=== PATIENT | female | born 1945 | race Caucasian/White ===

== ENCOUNTER 2016-03-17 09:52 | Inpatient (IN) | payer OTHER ==
[~2016-03-17] VITALS: Ht 162.6 cm; Wt 76.7 kg
--- NOTE | 2016-03-17 09:57 | NUR ---
PT BIBA FOR ALTERED MENTAL STATUS. PER EMS PTS CALLED 911 WHEN HE FOUND HER IN THE BATHROOM THIS AM. PT HAD DIARREHA ALL DAY YESTERDAY. PT IS KNOWN DIABETIC AND ALSO HAS A HX OF HTN. PT BS 300 AND BP ON ARRIVAL IN ED IS 220/102
--- NOTE | 2016-03-17 10:09 | ED AMS/SEIZURE/WEAK/DIZZY ---
History of Present Illness General Chief Complaint: Altered Mental Status Stated Complaint: AMS Source: family, EMS Exam Limitations: not alert/orientated Triage Note: PT BIBA FOR ALTERED MENTAL STATUS. PER EMS PTS CALLED [phone] WHEN HE FOUND HER IN THE BATHROOM THIS AM. PT HAD DIARREHA ALL DAY YESTERDAY. PT IS KNOWN DIABETIC AND ALSO HAS A HX OF HTN. PT BS 300 AND BP ON ARRIVAL IN ED IS 220/102 Triage Nurses Notes Reviewed? yes Onset: Gradual Duration: getting worse Timing: recent history Injury Environment: home Severity: severe Severity Numbers: 10 HPI: Patient is a 70-year-old female with a past medical history of type 2 diabetes and hypertension and which initially patient was brought in by ambulance for concerns of altered mental status in which patient family did show up after initial examination it was a state that she was complaining of left-sided ear pain over the weekend and "not feeling well" with chills and generalized malaise and lethargy and chronic cough and diarrhea that began yesterday. Patient was not evaluated by primary care doctor nor has an antibiotic been administered in which patient this morning was found by 's at private residence in the bathroom lying on the floor and not verbally responding to any commands and grunting and shaky The son does state that there was a towel lying down where patient was lying and denies any traumatic audible falling sound and denies any trauma heard or seen (ANA JENKINS,FABIOLA) Vital Signs & Intake/Output Vital Signs & Intake/Output Vital Signs Date Time Temp Pulse Resp B/P Pulse O2 O2 Flow FiO2 Ox Delivery Rate 03/17 1729 99 Non 100% ReBreather 03/17 172 97.3 103 22 163/86 99 Non 100% ReBreather 03/17 1640 98.8 79 46 113/69 98 Nasal 5.0L Cannula 03/17 1620 90 38 135/75 98 Nasal 5.0L Cannula 03/17 1435 88 32 155/80 98 Nasal 2.0L Cannula 03/17 1401 90 20 159/90 99 Nasal 2.0L Cannula 03/17 1317 97.8 03/17 1311 98 Nasal Cannula 03/17 1254 97.8 87 20 160/97 98 Nasal 2.0L Cannula 03/17 1158 82 20 165/93 99 Nasal 2.0L Cannula 03/17 1131 102.0 03/17 1131 102.0 112 42 203/95 03/17 1128 92 40 173/98 97 Nasal 2.0L Cannula 03/17 1121 112 42 203/95 97 Nasal 2.0L Cannula 03/17 1108 98 Nasal 2.0L Cannula 03/17 1108 115 24 190/91 98 Nasal 2.0L Cannula 03/17 0958 99.7 116 24 220/102 98 Room Air Allergies Coded Allergies: Sulfa (Sulfonamide Antibiotics) (Intermediate, TURNS RED 03/17/16) Reconcile Medications Aspirin (Ecotrin*) 81 MG TABLET.DR 1 TAB PO DAILY HEART HEALTH (Reported) Atorvastatin Calcium 10 MG TABLET 1 TAB PO DAILY CHOLESTEROL (Reported) Insulin NPL/Insulin Lispro (Humalog Mix 75-25 Kwikpen) 100 UNIT/ML (75-25) INSULN.PEN DIABETES (Reported) Levothyroxine Sodium 25 MCG TABLET 1 TAB PO DAILY AC THYROID (Reported) Losartan Potassium 100 MG TABLET 1 TAB PO DAILY HEART (Reported) Metformin HCl 1,000 MG TABLET 1 TAB PO BID DIABETES (Reported) (VENTURA ALDRICH,VENKATESH Darby) Past History Travel History Traveled to [place] past 21 day No Medical History Any Pertinent Medical History? see below for history Cardiovascular: hypertension Endocrine: diabetes Surgical History Surgical History: unobtainable Psychosocial History What is your primary language Finnish Tobacco Use: Never used Family History Hx Contributory? No (FABIOLA TURCIOS) Review of Systems Review of Systems Constitutional: Reports: see HPI, chills, fever. EENTM: Reports: ear pain. Respiratory: Reports: see HPI, cough. Cardiovascular: Reports: no symptoms. GI: Reports: see HPI, diarrhea. Genitourinary: Reports: no symptoms. Musculoskeletal: Reports: no symptoms. Skin: Reports: no symptoms. Neurological/Psychological: Reports: no symptoms. Hematologic/Endocrine: Reports: no symptoms. Immunologic/Allergic: Reports: no symptoms. All Other Systems: Reviewed and Negative (FABIOLA TURCIOS) Physical Exam Physical Exam General Appearance: PATIENT IS NOT RESPONDING TO VERBAL COMMANDS aND IS SHOWING MILD AKATHISIA AND GRUNTING AND NONVERBAL Head: atraumatic Eyes: Bilateral: normal appearance, PERRL. Ears, Nose, Throat: LEFT EAR NOTED SEVERE TYMPANIC MEMBRANE BULGING AND FLUID WITH SURROUNDING ERYTHEMA eXTERNAL AUDITORY CANAL NORMAL EXTERNAL ANATOMY NORMAL Neck: normal inspection, supple Respiratory: normal breath sounds, chest non-tender, no respiratory distress Cardiovascular: tachycardia Peripheral Pulses: 2+ radial (R), 2+ radial (L), 2+ dorsalis pedis (R), 2+ dorsalis pedis (L) Gastrointestinal: normal bowel sounds, soft, non-tender Back: normal inspection, normal range of motion Extremities: normal range of motion Neurologic/Psych: meningeal signs, MILD RIGHT CORNER OF THE MOUTH FACIAL DROOP, PATIENT INITIALLY GRUNTING AND MOANING AND IS NONVERBAL UNRESPONSIVE TO COMMANDS Skin: intact, normal color, warm/dry Core Measures ACS in differential dx? No CVA/TIA Diagnosis: No Severe Sepsis Present: Yes BC x2: Yes Lactic Acid x2: Yes IV ABX Broad Spectrum: Yes NS/LR Started: Yes Septic Shock Present: Yes BC x2: Yes Lactic Acid: Yes IV ABX Broad Spectrum: Yes Focused Exam Completed: Yes NS/LR 30ml/kg w/in 3hrs: Yes Bedside Dysphagia Screen Bedside Swallow Eval Done: No Result of Evaluation: Fail (FABIOLA TURCIOS) ED Sepsis Exam Date of Focused Sepsis Exam: 03/17/16 Time of Focused Sepsis Exam: 1355 Sepsis Cardiac Exam: Tachycardia Sepsis Resp Exam: CTA Sepsis Cap Refill Exam: <2 Sec Sepsis Peripheral Pulse Exam: Normal Sepsis Peripheral Pulse Location: Dorsalis Pedis Sepsis Skin Color Exam: DIAPHORETIC Skin Temp/Moisture Exam: Hot/Diaphoretic (FABIOLA TURCIOS) Progress Differential Diagnosis: arrythmia, alcohol intoxication, anemia, benign positional vertigo, CVA/stroke, dehydration, drug intoxication, encephalitis, electrolyte imbalance, GI bleed, hypoglycemia, hypoxia, intracranial Hem., intracranial mass/tumor, labrynthitis, meningitis, Meniere's disease, migraine ALVARENGA, multiple sclerosis, pneumonia, postural hypotension, presyncope, post- traumatic vertigo, sepsis, seizure disorder, subarachnoid Hem., UTI/pyelo, vertebrobasilar insuff, MENINGITIS, FRACTURE, ich ENCEPHALOPATHY Diagnostic Imaging: Viewed by Me: Radiology Read. Radiology Impression: SEE COMMENTS Initial ED EKG: normal p-waves, normal QRS complex, normal sinus rhythm, 115 BPM NORMAL SINUS RHYTHM Comments: PATIENT: SOLOMON PEREZ PRESENT AGE: 70 PATIENT ACCOUNT NO: [id number] : 45 LOCATION: ER ORDERING PHYSICIAN: FABIOLA JENKINS SERVICE DATE: 03/17/16 EXAM TYPE: CAT - CT MAXILLOFACIAL W/O CON EXAMINATION: CT MAXILLOFACIAL WITHOUT CONTRAST CLINICAL INFORMATION: Fall, skull fracture COMPARISON: Head CT from earlier today TECHNIQUE: Multidetector helical imaging was performed in the axial plane with generation of coronal and sagittal reformatted images. DLP: 718.63 mGy-cm. FINDINGS: There are several foci of pneumocephalus in the left temporal lobe, as seen on today's earlier head CT. There is also redemonstration of partial opacification of the left mastoid air cells and middle ear cavity. Appearance is concerning for a fracture through the petrous portion of the left temporal bone. Tiny osseous densities are noted posterior to the temporal bone such as on image 149/257. There is partial opacification of the mastoid air cells bilaterally, right greater than left. There is mucosal thickening of the bilateral maxillary sinuses, sphenoid sinuses, and right frontal sinus. The left frontal sinus is clear. There is opacification of the the infundibula bilaterally. The mandibular condyles are well-seated in the condylar fossa. The orbits demonstrate a normal appearance bilaterally. The globes are intact, and there are no suspicious findings to suggest retrobulbar hemorrhage. Degenerative changes are present in the visualized cervical spine. IMPRESSION: 1. Redemonstrated foci of pneumocephalus in the left temporal lobe with adjacent partial opacification of the left mastoid air cells and middle ear cavity. Tiny osseous densities are seen posterior to the petrous portion of the left temporal bone, raising concern for sequelae of temporal bone fracture in the setting of trauma. Alternatively, mastoiditis could have a similar appearance in the proper clinical setting. 2. Partial paranasal sinus opacification as described above. DICTATED BY: RORY CARLSON MD DATE/TIME DICTATED:03/17/161213 KICKING MACHINE OPERATOR:PAUL DATE/TIME TRANSCRIBED:03/17/161213 PATIENT: SOLOMON PEREZ PRESENT AGE: 70 PATIENT ACCOUNT NO: [id number] : 45 LOCATION: [facility] ORDERING PHYSICIAN: FABIOLA JENKINS SERVICE DATE: 03/17/16 EXAM TYPE: CAT - CT ABD & PELVIS W/O IV CONTRAS; CT CHEST WO IV CONTRAST EXAM: NONCONTRAST CT OF THE CHEST; NONCONTRAST CT OF THE ABDOMEN AND PELVIS INDICATION: Altered mental status COMPARISON: None TECHNIQUE: No IV contrast was utilized. Multidetector helical imaging was performed through the chest, abdomen, and pelvis. Coronal and sagittal reformatted images were created at the technologist workstation. DLP: 1158.73 mGy-cm FINDINGS: Chest: There is a 3 mm left lower lobe nodule on image 15/42. There is a 5 mm left lower lobe nodule on image 36/42. No regions of consolidation bilaterally. No pneumothorax or pleural effusions. The visualized thyroid gland is unremarkable. A small to moderate-sized hiatal hernia is present. There are subcentimeter mediastinal lymph nodes within the range of normal variation. Cardiac size is within normal limits; no pericardial effusion. Coronary artery calcifications are present. No axillary lymphadenopathy is present. Abdomen/Pelvis: The liver is homogeneous in attenuation without intrahepatic biliary ductal dilatation. The gallbladder is unremarkable. There is partial fatty atrophy of the pancreas. The spleen and adrenal glands are within normal limits. There is suggestion of a small exophytic right upper pole renal cyst, not well assessed due to motion artifact. The unenhanced kidneys are otherwise unremarkable without hydronephrosis. No renal or ureteral calculi are present. The urinary bladder is unremarkable. Patient is status post hysterectomy. Colonic diverticulosis is noted. The small and large bowel are otherwise unremarkable without evidence of obstruction or pericolonic inflammatory change. The appendix is unremarkable. No free fluid or free air is present. Scattered atherosclerotic calcifications are present. No retroperitoneal or pelvic lymphadenopathy is seen. Degenerative changes are noted in the spine. IMPRESSION: 1. No acute findings identified in the chest, abdomen, or pelvis. 2. Left lower lobe 5 mm and 3 mm lung nodules, nonspecific. In the absence of prior studies for comparison, 12 month follow-up chest CT is recommended. 3. Small to moderate-sized hiatal hernia. 4. Suggestion of a small exophytic right upper pole renal cyst. Correlation with renal ultrasound is advised to exclude a mass. DICTATED BY: RORY CARLSON MD DATE/TIME DICTATED:03/17/161109 KICKING MACHINE OPERATOR:PAUL DATE/TIME TRANSCRIBED:03/17/161109 PATIENT: SOLOMON PEREZ PRESENT AGE: 70 PATIENT ACCOUNT NO: [id number] : 45 LOCATION: [facility] ORDERING PHYSICIAN: FABIOLA JENKINS SERVICE DATE: 03/17/16 EXAM TYPE: CAT - CT CERV SPINE WO IV CONTRAST; CT HEAD WO IV CONTRAST EXAMINATION: NONCONTRAST HEAD CT NONCONTRAST CERVICAL SPINE CT INDICATION INFORMATION: Altered mental status COMPARISON: None TECHNIQUE: Separate noncontrast CT examinations of the head and cervical spine were performed. Coronal and sagittal images were created for each examination at the technologist workstation. DLP: 965.27 mGy-cm FINDINGS: Head: Several foci of pneumocephalus are noted in the left temporal lobe. There is partial opacification of the adjacent left mastoid air cells and middle ear cavity. Overall appearance is suspicious for sequelae of a nondisplaced fracture through the petrous portion of the temporal bone. No definite acute intracranial hemorrhage. No evidence of acute territorial infarction. No abnormal mass-effect or midline shift is seen. Cage to white matter differentiation is well preserved. No extra-axial fluid collections are identified. The ventricles are normal in size. The osseous structures and soft tissues are normal. There is partial opacification of the right mastoid air cells. There is mucosal thickening of the left maxillary sinus. The right mastoid air cells are well aerated. Cervical spine: There is anatomic alignment of the vertebral bodies and posterior elements. There is degenerative change at the atlantodens articulation. Vertebral body heights and intervertebral disc spaces are maintained. Multilevel facet arthropathy is present. Mild endplate osteophytes are noted. No evidence of acute fracture. No prevertebral soft tissue swelling. Visualized portions of the lung apices are unremarkable. The thyroid gland is unremarkable. IMPRESSION: 1. Head: Several foci of pneumocephalus in the left temporal lobe as well as partial opacification of the adjacent left mastoid air cells and middle ear cavity. Appearance is most suspicious for a nondisplaced fracture of the petrous portion of the left temporal bone. No definite acute intracranial hemorrhage. 2. Cervical spine: No acute findings identified. (ANA JENKINS,FABIOLA) Plan of Care: Orders Procedure Date/time Status ICU LAB BUNDLE 03/18 0900 Active CBC WITHOUT DIFFERENTIAL 03/18 09 Active ICU LAB BUNDLE 03/18 0100 Active CBC WITHOUT DIFFERENTIAL 03/18 0100 Active Nothing by Mouth 03/17 D Active LACTIC ACID 03/17 1952 Active Pathway - chart 03/17 1908 Active VRE ACTIVE SURVIELLANCE 01/23 1900 Active ACTIVE SURVEILLANCE NARES 03/17 1900 Active CBC WITHOUT DIFFERENTIAL 03/17 1849 Active LACTIC ACID 03/17 1700 Active ICU LAB BUNDLE 03/17 1700 Active Pathway - chart 03/17 1620 Active House Staff 03/17 1620 Active Code Status 03/17 1620 Active Add-on Test (ER Only) 03/17 1607 Active Dominguez, Insertion/Removal/Asses 03/17 1518 Active Patient Data 03/17 1515 Active CEREBROSPINAL FLUID CULTURE 03/17 1515 Active CYTOLOGY SPECIMEN 03/17 1515 Active CSF TOTAL PROTEIN 03/17 1515 Complete CEREBROSPINAL FL CELL CT 03/17 1515 Complete CSF GLUCOSE 03/17 1515 Complete Patient Data 03/17 1407 Active Patient Data 03/17 1401 Active ARTERIAL BLOOD GAS (GEN) 03/17 1343 Complete Admit to inpatient 03/17 1335 Active LACTIC ACID 03/17 1308 Complete Intake & Output 03/17 1217 Active THYROID STIMULATING HORMONE 03/17 1050 Active CREATINE PHOSPHOKINASE 03/17 1050 Active RAPID VIRAL INFLUENZA A 03/17 1033 Complete Straight Cath 03/17 1013 Active CULTURE,URINE 03/17 1013 Active BLOOD CULTURE 03/17 1013 Active EKG 03/17 1010 Active Telemetry/Plant Guard 03/17 1008 Active URINALYSIS 03/17 1008 Complete TROPONIN LEVEL 03/17 1008 Active PARTIAL THROMBOPLASTIN TIME 03/17 1008 Complete PROTHROMBIN TIME 03/17 1008 Complete PROLACTIN 03/17 1008 Active MAGNESIUM 03/17 1008 Active LACTIC ACID 03/17 1008 Active COMPREHENSIVE METABOLIC PANEL 03/17 1008 Active CBC WITHOUT DIFFERENTIAL 03/17 1008 Complete ACETONE 03/17 1008 Active Lab Add-on Test 03/17 UNK Active VTE Mechanical Prophylaxis 03/17 UNK Active Current Medications Sig/Garrick Start time Last Medication Dose Stop Time Status Admin Atorvastatin Calcium 10 MG 1700 03/18 1700 AC (Lipitor) Aspirin Buffered 81 MG DAILY 03/18 1000 AC (Ecotrin) Losartan Potassium 100 MG DAILY 03/18 1000 AC (Cozaar) Pantoprazole Sodium 40 MG DAILY 03/18 1000 AC (Protonix) Levothyroxine Sodium 0.025 MG DAILY AC 03/18 0700 AC (Synthroid) Ampicillin 2,000 MG Q4 03/17 2200 AC (Omnipen-N- Polycillin 2GM Inj Tracey) Sodium Chloride 100 ML (Normal Saline 0.9%) Acetaminophen 650 MG Q6P PRN 03/17 191 AC (Tylenol) Oxycodone/ 1 TAB Q6P PRN 03/17 1915 AC Acetaminophen (Percocet) Insulin Human Regular 0 Q6 03/17 1800 AC (Novolin R Inj (Npo Patient)) Lorazepam 0.5 MG ONCE ONE 03/17 1715 CAN (Ativan) 03/17 1716 Sodium Chloride 1,000 ML Q8H 03/17 1700 AC (Normal Saline 0.9%) Acetaminophen 1,000 MG Q6-PRN PRN 03/17 1630 AC (Ofirmev) N/A 1 UNIT (No Carrier) Vancomycin HCl 1,000 MG DAILY 03/17 1515 AC Dextrose/Water 250 ML (D5W) Aspirin 300 MG ONCE ONE 03/17 1015 CAN (Aspirin) 03/17 1016 Laboratory Tests 03/17/16 1857: Sodium Pending, Potassium Pending, Chloride Pending, Carbon Dioxide Pending, Anion Gap Pending, BUN Pending, Creatinine Pending, Glucose Pending, Lactic Acid Pending, Calcium Pending, Phosphorus Pending, Magnesium Pending, Total Bilirubin Pending, AST Pending, ALT Pending, Albumin Pending, CBC w Diff Pending, WBC Pending, RBC Pending, Hgb Pending, Hct Pending, MCV Pending, MCH Pending, RDW Pending, Plt Count Pending, MPV Pending, PUBS MCHC Pending 03/17/16 1845: pH 7.36, pCO2 29 L, pO2 193 H, HCO3 16 L, ABG O2 Sat (Measured) 99.0, P-50 ( Temp Corrected) N, Carboxyhemoglobin 0.3 L, O2 Concentration % 100%, Temperature 96.6 L, O2 Delivery Method NRB, Phlebotomy Draw Site RIGHT RADIAL 03/17/16 1550: CSF Glucose < 20 L, CSF Total Protein > 600 H 03/17/16 1550: Lymphocytes 1, % Normal PMNs 97, CSF WBC 12050 *H, CSF RBC 611 H, CSF Comment 03/17/16 1410: Lactic Acid 9.3 H 03/17/16 1345: pH 7.36, pCO2 24 L, pO2 106 H, HCO3 13 L, ABG O2 Sat (Measured) 97.0, Carboxyhemoglobin 0.1 L, O2 Concentration % 2L, O2 Delivery Method NC, Phlebotomy Draw Site RIGHT RADIAL 03/17/16 1050: Anion Gap 25 H, Estimated GFR > 60, BUN/Creatinine Ratio 13.8, Glucose 315 H, Lactic Acid 8.8 H, Calcium 9.8, Magnesium 1.3 L, Total Bilirubin 1.4 H, AST 29, ALT 29, Alkaline Phosphatase 92, Creatine Kinase 80, Troponin I < 0.01, Total Protein 7.5, Albumin 4.3, Globulin 3.2, Albumin/Globulin Ratio 1.3, TSH Pending, Prolactin 16.1, PT 17.2 H, INR 1.65 H, APTT 30, CBC w Diff MAN DIFF ORDERED, RBC 4.84, MCV 86.3, MCH 29.0, RDW 13.4, MPV 9.6, Gran % 93.5 H, Lymphocytes % 4.7 L, Monocytes % 1.6 L, Eosinophils % 0, Basophils % 0.2, Absolute Granulocytes 13.4 H, Segmented Neutrophils 70, Band Neutrophils 19 H, Absolute Lymphocytes 0.7 L, Lymphocytes 5 L, Monocytes 4, Absolute Monocytes 0.2, Absolute Eosinophils 0, Absolute Basophils 0, Metamyelocytes 2 H, Platelet Estimate ADEQUATE, Normocytic RBCs VERIFIED, Normochromic RBCs VERIFIED, PUBS MCHC 33.5, Acetone Level NEGATIVE 03/17/16 1045: Urinalysis LIGHT H, Urine Color YEL, Urine Clarity HAZY H, Urine pH 6.0, Ur Specific [place] 1.025, Urine Protein 100 H, Urine Ketones 40 H, Urine Nitrite NEG, Urine Bilirubin NEG, Urine Urobilinogen 0.2, Ur Leukocyte Esterase NEG, Ur Microscopic SEDIMENT EXAMINED, Urine RBC 3-5, Urine WBC RARE, Ur Epithelial Cells FEW, Urine Mucus RARE, Urine Hemoglobin SMALL H, Urine Glucose >=1000 H Microbiology 03/17 1900 UPPER RESP: Surveillance Culture - ORD 03/17 1900 GI: Surveillance Culture - ORD 03/17 1550 CENT N S: CSF Culture - RES 03/17 1550 CENT N S: Gram Stain - RES 03/17 1056 URINE ROUT: Urine Culture - RECD 03/17 1056 BLOOD: Blood Culture - RECD 03/17 1050 BLOOD: Blood Culture - RECD Upon initial examination patient appeared to have concerns of CVA due to patient being altered mental status acute onset since this a.m. with a mild right corner the mouth facial droop and nonverbal and grunting presentation. I immediately called for a stroke alert which I discussed patient with Dr. Peguero IN WHICH HE WAS aware CT scan initially was unremarkable for hemorrhagic stroke Patient was noted to be defecating in the emergency room however rectal temperature noted to be 102 per nursing staff. My suspicion then became patient was septic and altered in which patient did have concerns of left otitis media, CT scan was confirming suspicion of significant infection to the left ear and per family members and presentation there are no signs of trauma however CT scan does have a radiological dictation that is suspicion for skull fracture my suspicion Dr. PEGUERO also evaluated patient and CONSULTED There was also states physician of meningitis I also informed immediately Venkatesh Stewart MD of concerns of CVA and he evaluated patient as well. Patient was given IV fluid resuscitation immediately an IV Tylenol for concerns of fever Apoilnar Cleveland MD also was made aware of admission for concerns of significant infection and sepsis which he also evaluated patient in which he highly recommends a lumbar puncture he also advised to hold the antibiotics prior to the lumbar puncture being performed Talisha Treviño MD also agrees with holding antibiotics and having lumbar puncture performed Patient also was being initiated multiple IV fluid resuscitation liters for concerns of severe sepsis however blood pressure remained stable. Blood cultures are currently pending urine culture currently pending The family was also made aware of disposition and plan to be admitted to the ICU for concerns of sepsis due to left otitis media and altered mental status however meningitis was not ruled out After family signed consent form to proceed with lumbar puncture patient was showing significant akathisia and agitation in which after multiple attempts to the emergency room to establish a lumbar puncture that I called interventional radiology who agreed the patient will administer IR lumbar puncture Interventional radiology also informed me that patient had an elevated INR which they needed to have family signed consent form to proceed with lumbar puncture. Prior to lumbar puncture be performed the house staff informed me that Apolinar Cleveland MD agreed at this time 03/17/2016 3:19:06 PM that antibiotics could be administered and have lumbar puncture performed. Prior to patient being transferred to the ICU it was noted by me by nursing staff that an incident had occurred while the lumbar puncture was being performed by interventional radiology which patient was in a prone position in which she had episodes of vomiting and patient became hypoxic however with oxygen supplementation hypoxia had resolved. While waiting to be transferred in the ER to the ICU patient with nasal cannula became hypoxic at 85% in which a nonrebreather was established at 6 L which patient then became 99% Patient however became agitated and wanted to remove the nonrebreathing mask and which a milligram of Ativan was administered patient then became more calm and oxygen saturation remained 99% with nonrebreather. It was noticed me that critical values were reported from lumbar puncture for concerns of meningitis (FABIOLA TURCIOS) Comments: 03/17/2016 12:12:34 PM patient is becoming more active although she is also encephalopathic/delirious. She is beginning to pull at her IV site. She will likely require soft restraints. Solomon has been evaluated by Dr. Peguero who feels she is encephalopathic secondary to a malignant otitis media/mastoiditis. Infectious disease and ear nose and throat will be consulted regarding treatment and disposition. Broad-spectrum antibiotics will be initiated. 03/17/2016 12:31:37 PM Apolinar Cleveland MD here to evaluate Solomon. 03/17/2016 1:36:19 PM Apolinar Cleveland MD has recommended an LP prior to treatment. Attempts to perform LP in the emergency department have been unsuccessful given lack of cooperation on the part of the patient. We have contacted interventional radiology. (VENTURA ALDRICH,VENKATESH Darby) Departure Departure Disposition: STILL A PATIENT Condition: Critical Clinical Impression Primary Impression: Meningitis Secondary Impressions: Altered mental state, Lactic acidosis, Left otitis media, Sepsis Departure Forms: Customer Survey General Discharge Information Admission Note Spoke With: Talisha TREVIÑO MD Documentation of Exam: Documentation of any treatments & extenuating circumstances including Concerns Regarding Discharge (functional status, medication knowledge or non-compliance, living conditions, etc.) that warrant an admission rather than observation: [Talisha Treviño MD agreed with ICU admission for concerns of altered mental status meningitis sepsis and left ear infection which patient requires IV antibiotics, IV fluid resuscitation, infectious disease consultation, repeat labs, blood cultures currently pending, ENT consultation, outpatient treatment at this time due to critical findings of concerns of meningitis and sepsis would be medically harmful.] (FABIOLA TURCIOS) PA/LEAD COOK Co-Sign Statement Statement: ED Attending supervision documentation- [X] I saw and evaluated the patient. I have also reviewed all the pertinent lab results and diagnostic results. I agree with the findings and the plan of care as documented in the PA's/LEAD COOK's documentation. [] I have reviewed the ED Record and agree with the PA's/LEAD COOK's documentation. [] Additions or exceptions (if any) to the PAs/LEAD COOK's note and plan are summarized below: [] (VENTURA ALDRICH,VENKATESH Darby) Critical Care Note Critical Care Note Critical Care Time: 75-104 min (ANA JENKINS,FABIOLA)
--- NOTE | 2016-03-17 10:12 | NUR ---
STROKE ALERT CALLED PER MD WHITEHEAD/ ALICE PEREZ
--- NOTE | 2016-03-17 10:30 | NUR ---
PT BACK FROM CT ON HOGSHEAD OPENER WITH THIS RN PT STRAIGHT CATH FOR URINE. URINE SAMPLE OBTAINED AND SENT. LABS DRAWN, BC X 2 OBTAINED AND SENT, FLU SAWB OBTAINED AND SENT. PT HAS AN 18G IV TO LEFT AC AND 20G IV TO RIGHT AC. PT REMAINS ALTERED MENTAL STATUS WITH FAMILY AT BEDSIDE. PT CONTINUES TO HAVE LOOSE STOOL, PT CLEANED AND NEW LINEN GIVEN
[2016-03-17 11:12] LABS: ABSOLUTE BASOPHIL COUNT 0 /CUMM (0.0-0.2); ABSOLUTE EOSINOPHIL COUNT 0 /CUMM (0.0-0.7); ABSOLUTE GRANULOCYTE CT 13.4 /CUMM (1.4-6.5); ABSOLUTE LYMPH COUNT 0.7 /CUMM (1.2-3.4); ABSOLUTE MONOCYTE COUNT 0.2 /CUMM (0.10-0.60); BASOPHIL % 0.2 % (0.0-2.0); EOSINOPHIL % 0 % (0-5); GRANULOCYTE % 93.5 % (42.2-75.2); HEMATOCRIT 41.8 % (37-47); MEAN CORPUSCULAR HGB CONC 33.5 G/DL (33.0-37.0); MEAN CORPUSCULAR VOLUME 86.3 FL (81.0-99.0); MEAN PLATELET VOLUME 9.6 FL (7.4-10.4); PLATELET COUNT 244 /CUMM (130-400); RBC DISTRIBUTION WIDTH 13.4 % (11.5-14.5); RED BLOOD CELL CT 4.84 /CUMM (4.20-5.40); WHITE BLOOD CELL COUNT 14.3 /CUMM (4.8-10.8)
--- NOTE | 2016-03-17 11:13 | CT SCAN REPORT ---
EXAMINATION: NONCONTRAST HEAD CT NONCONTRAST CERVICAL SPINE CT INDICATION INFORMATION: Altered mental status COMPARISON: None TECHNIQUE: Separate noncontrast CT examinations of the head and cervical spine were performed. Coronal and sagittal images were created for each examination at the technologist workstation. DLP: 965.27 mGy-cm FINDINGS: Head: Several foci of pneumocephalus are noted in the left temporal lobe. There is partial opacification of the adjacent left mastoid air cells and middle ear cavity. Overall appearance is suspicious for sequelae of a nondisplaced fracture through the petrous portion of the temporal bone. No definite acute intracranial hemorrhage. No evidence of acute territorial infarction. No abnormal mass-effect or midline shift is seen. Cage to white matter differentiation is well preserved. No extra-axial fluid collections are identified. The ventricles are normal in size. The osseous structures and soft tissues are normal. There is partial opacification of the right mastoid air cells. There is mucosal thickening of the left maxillary sinus. The right mastoid air cells are well aerated. Cervical spine: There is anatomic alignment of the vertebral bodies and posterior elements. There is degenerative change at the atlantodens articulation. Vertebral body heights and intervertebral disc spaces are maintained. Multilevel facet arthropathy is present. Mild endplate osteophytes are noted. No evidence of acute fracture. No prevertebral soft tissue swelling. Visualized portions of the lung apices are unremarkable. The thyroid gland is unremarkable. IMPRESSION: 1. Head: Several foci of pneumocephalus in the left temporal lobe as well as partial opacification of the adjacent left mastoid air cells and middle ear cavity. Appearance is most suspicious for a nondisplaced fracture of the petrous portion of the left temporal bone. No definite acute intracranial hemorrhage. 2. Cervical spine: No acute findings identified.
--- NOTE | 2016-03-17 11:24 | CT SCAN REPORT ---
EXAM: NONCONTRAST CT OF THE CHEST; NONCONTRAST CT OF THE ABDOMEN AND PELVIS INDICATION: Altered mental status COMPARISON: None TECHNIQUE: No IV contrast was utilized. Multidetector helical imaging was performed through the chest, abdomen, and pelvis. Coronal and sagittal reformatted images were created at the technologist workstation. DLP: 1158.73 mGy-cm FINDINGS: Chest: There is a 3 mm left lower lobe nodule on image 15/42. There is a 5 mm left lower lobe nodule on image 36/42. No regions of consolidation bilaterally. No pneumothorax or pleural effusions. The visualized thyroid gland is unremarkable. A small to moderate-sized hiatal hernia is present. There are subcentimeter mediastinal lymph nodes within the range of normal variation. Cardiac size is within normal limits; no pericardial effusion. Coronary artery calcifications are present. No axillary lymphadenopathy is present. Abdomen/Pelvis: The liver is homogeneous in attenuation without intrahepatic biliary ductal dilatation. The gallbladder is unremarkable. There is partial fatty atrophy of the pancreas. The spleen and adrenal glands are within normal limits. There is suggestion of a small exophytic right upper pole renal cyst, not well assessed due to motion artifact. The unenhanced kidneys are otherwise unremarkable without hydronephrosis. No renal or ureteral calculi are present. The urinary bladder is unremarkable. Patient is status post hysterectomy. Colonic diverticulosis is noted. The small and large bowel are otherwise unremarkable without evidence of obstruction or pericolonic inflammatory change. The appendix is unremarkable. No free fluid or free air is present. Scattered atherosclerotic calcifications are present. No retroperitoneal or pelvic lymphadenopathy is seen. Degenerative changes are noted in the spine. IMPRESSION: 1. No acute findings identified in the chest, abdomen, or pelvis. 2. Left lower lobe 5 mm and 3 mm lung nodules, nonspecific. In the absence of prior studies for comparison, 12 month follow-up chest CT is recommended. 3. Small to moderate-sized hiatal hernia. 4. Suggestion of a small exophytic right upper pole renal cyst. Correlation with renal ultrasound is advised to exclude a mass.
[2016-03-17 11:25] LABS: PT 17.2 SEC (9.4-12.5); PTT 30 SEC (25-37)
--- NOTE | 2016-03-17 11:32 | NUR ---
LABETALOL AND OFIRMEV ADMINISTERED PER EMAR.
[2016-03-17] MEDS ORDERED: HUMALOG MI100 UNIT/3 (11:45)
[2016-03-17] MEDS ORDERED: LEVOTHYROXINE25 MCG G TUBE (11:45)
[2016-03-17] MEDS ORDERED: METFORMIN HCL1000 M1 PO (11:45)
[2016-03-17] MEDS ORDERED: LOSARTAN POTAS100 M1 G TUBE (11:46)
[2016-03-17] MEDS ORDERED: ASPIRIN EC81 M1 PO (11:46)
[2016-03-17] MEDS ORDERED: ATORVASTATIN CA10 M1 G TUBE (11:47)
--- NOTE | 2016-03-17 11:59 | NUR ---
PT TO AND BACK FROM CT SCAN ON RUNWAY MODEL WITH THIS RN ATTENDING AT ALL TIMES.
--- NOTE | 2016-03-17 12:38 | NUR ---
PT REMAINS OBTUNDED. SHE IS UNRESPONSIVE TO COMMANDS. SIMMONS HAS BEEN PLACED WITH A RETURN OF CLEAR YELLOW URINE. SHE WAS INCONTINENT OF FORMED SOFT BROWN STOOL. 2ND LITER OF NS INFUSING AT THIS TIME. PT POSITIONED FOR COMFORT. DR. MCKEON AND ALICE PEREZ AT BEDSIDE. WILL CONTINUE TO MONITOR.
--- NOTE | 2016-03-17 12:40 | CT SCAN REPORT ---
EXAMINATION: CT MAXILLOFACIAL WITHOUT CONTRAST CLINICAL INFORMATION: Fall, skull fracture COMPARISON: Head CT from earlier today TECHNIQUE: Multidetector helical imaging was performed in the axial plane with generation of coronal and sagittal reformatted images. DLP: 718.63 mGy-cm. FINDINGS: There are several foci of pneumocephalus in the left temporal lobe, as seen on today's earlier head CT. There is also redemonstration of partial opacification of the left mastoid air cells and middle ear cavity. Appearance is concerning for a fracture through the petrous portion of the left temporal bone. Tiny osseous densities are noted posterior to the temporal bone such as on image 149/257. There is partial opacification of the mastoid air cells bilaterally, right greater than left. There is mucosal thickening of the bilateral maxillary sinuses, sphenoid sinuses, and right frontal sinus. The left frontal sinus is clear. There is opacification of the the infundibula bilaterally. The mandibular condyles are well-seated in the condylar fossa. The orbits demonstrate a normal appearance bilaterally. The globes are intact, and there are no suspicious findings to suggest retrobulbar hemorrhage. Degenerative changes are present in the visualized cervical spine. IMPRESSION: 1. Redemonstrated foci of pneumocephalus in the left temporal lobe with adjacent partial opacification of the left mastoid air cells and middle ear cavity. Tiny osseous densities are seen posterior to the petrous portion of the left temporal bone, raising concern for sequelae of temporal bone fracture in the setting of trauma. Alternatively, mastoiditis could have a similar appearance in the proper clinical setting. 2. Partial paranasal sinus opacification as described above.
--- NOTE | 2016-03-17 13:17 | Cons- Neurology ---
General Information and HPI Consulting Request Date of Consult: 03/17/16 Requested By: Dr. Edmund Stewart History of Present Illness: 70-year-old female found on floor by family this morning and urgently brought to [facility] emergency room for further evaluation. History is obtained from the physician food service assistant in the ED. Apparently the patient was complaining for several days of left ear pain. There was no additional trauma. No history of stroke. Upon arrival to the emergency room she was febrile to 102, restless and confused. Initial CT of the head showed evidence of pneumocephalus in the left temporal region. Brief otologic evaluation by the emergency room staff reportedly revealed signs of infection Allergies/Medications Allergies: Coded Allergies: Sulfa (Sulfonamide Antibiotics) (Intermediate, TURNS RED 03/17/16) Home Med List: Aspirin (Ecotrin*) 81 MG TABLET.DR 1 TAB PO DAILY HEART HEALTH (Reported) Atorvastatin Calcium 10 MG TABLET 1 TAB PO DAILY CHOLESTEROL (Reported) Insulin NPL/Insulin Lispro (Humalog Mix 75-25 Kwikpen) 100 UNIT/ML (75-25) INSULN.PEN DIABETES (Reported) Levothyroxine Sodium 25 MCG TABLET 1 TAB PO DAILY AC THYROID (Reported) Losartan Potassium 100 MG TABLET 1 TAB PO DAILY HEART (Reported) Metformin HCl 1,000 MG TABLET 1 TAB PO BID DIABETES (Reported) Review of Systems Review of Systems: Unobtainable Past History Travel History Traveled to [place] past 21 day No Medical History Cardiovascular: hypertension Endocrine: diabetes Surgical History Surgical History: unobtainable Exam & Diagnostic Data Vital Signs and I&O Vital Signs Date Time Temp Pulse Resp B/P Pulse O2 O2 Flow FiO2 Ox Delivery Rate 03/17 1254 97.8 87 20 160/97 98 Nasal 2.0L Cannula 03/17 1158 82 20 165/93 99 Nasal 2.0L Cannula 03/17 1131 102.0 03/17 1131 102.0 112 42 203/95 03/17 1128 92 40 173/98 97 Nasal 2.0L Cannula 03/17 1121 112 42 203/95 97 Nasal 2.0L Cannula 03/17 1108 98 Nasal 2.0L Cannula 03/17 1108 115 24 190/91 98 Nasal 2.0L Cannula 03/17 0958 99.7 116 24 220/102 98 Room Air Intake & Output 03/17 1600 03/17 0800 03/17 0000 Intake Total 1000 Output Total Balance 1000 Intake, IV 1000 Elderly, obese female who was restless, diaphoretic and poorly responsive to simple command. The head was normocephalic. Pupils were 2 mm bilaterally. She had roving eye movements. There was a mild downturn of the corner of the right mouth. She was moving all extremities and tone was diminished bilaterally. Plantar responses were withdrawal. Assessment/Plan Assessment: On clinical grounds, one must rule out a meningoencephalitis due to extension of infection from the left ear. The pneumocephalus demonstrated on CT might represent the effect of gas-forming bacteria. Alternatively, this could represent sequelae of trauma, perhaps sustained due to her fall. Recommendations: The patient should be admitted and treated with broad-spectrum antibiotics including vancomycin and ceftriaxone. Infectious disease has already been consulted and ENT input would also be appreciated. A lumbar puncture will be attempted in hopes of identifying an organism. She is considered critically ill and will be appropriate for the intensive care unit. Further neuro imaging will be considered pending her clinical course. Please feel free to call with any further questions. Consult Acknowledgment - Thank you for your consult request.
--- NOTE | 2016-03-17 13:31 | History & Physical ---
General Information and HPI History of Present Illness: This is a 70-year-old female found on floor by family this a.m. brought urgently to [facility] for further eval. Currently, patient was complaining for several days of a left ear pain. On arrival in ED was found to be febrile at 102, restless, confused, and initial CT of the head showed evidence of pneumocephalus in the left temporal region. Allergies/Medications Allergies: Coded Allergies: Sulfa (Sulfonamide Antibiotics) (Intermediate, TURNS RED 03/17/16) Home Med list Aspirin (Ecotrin*) 81 MG TABLET.DR 1 TAB PO DAILY HEART HEALTH (Reported) Atorvastatin Calcium 10 MG TABLET 1 TAB PO DAILY CHOLESTEROL (Reported) Insulin NPL/Insulin Lispro (Humalog Mix 75-25 Kwikpen) 100 UNIT/ML (75-25) INSULN.PEN DIABETES (Reported) Levothyroxine Sodium 25 MCG TABLET 1 TAB PO DAILY AC THYROID (Reported) Losartan Potassium 100 MG TABLET 1 TAB PO DAILY HEART (Reported) Metformin HCl 1,000 MG TABLET 1 TAB PO BID DIABETES (Reported) Past History Travel History Traveled to [place] past 21 day No Medical History Cardiovascular: hypertension Endocrine: diabetes Surgical History Surgical History: unobtainable Assessment/Plan Assessment: Initial ED workup shows: Vitals: MAXIMUM TEMPERATURE 102.0, heart rate 112, respiration between 24 and 42 , blood pressure systolic 220-160/190-165, pulse ox 98% on room air Labs show white count 14.3, with 19 bands hemoglobin 14, hematocrit 41, platelet 244 PT 17.2, INR 1.6, U tox is negative for acetone Blood meningoencephalitis secondary to infection of left ear. Alternatively, her pneumocephalus could be 2/2 trauma. Vancomycin and ceftriaxone ID consult ENT consult LP
--- NOTE | 2016-03-17 13:43 | Cons- Infect Disease ---
General Information and HPI Consulting Request Date of Consult: 03/17/16 Requested By: Raymond JENKINS Reason for Consult: Otitis media/air in the temporal lobe Source of Information: family Exam Limitations: unable to give history History of Present Illness: This is a 70-year-old woman with a history of diabetes and hypertension who was brought to the emergency room this morning after she was found on the floor of the bathroom unresponsive after complaining of a left earache and decreased hearing from the left ear yesterday associated with diarrhea and a fever reportedly to 104. There was no history of trauma, though she was found on the floor. She has no history of prior ear infections but does apparently have sinus problems. On arrival to the emergency room she was found to be febrile to 102. She is unable to provide any history secondary to her obtundation. Allergies/Medications Allergies: Coded Allergies: Sulfa (Sulfonamide Antibiotics) (Intermediate, TURNS RED 03/17/16) Home Med List: Aspirin (Ecotrin*) 81 MG TABLET.DR 1 TAB PO DAILY HEART HEALTH (Reported) Atorvastatin Calcium 10 MG TABLET 1 TAB PO DAILY CHOLESTEROL (Reported) Insulin NPL/Insulin Lispro (Humalog Mix 75-25 Kwikpen) 100 UNIT/ML (75-25) INSULN.PEN DIABETES (Reported) Levothyroxine Sodium 25 MCG TABLET 1 TAB PO DAILY AC THYROID (Reported) Losartan Potassium 100 MG TABLET 1 TAB PO DAILY HEART (Reported) Metformin HCl 1,000 MG TABLET 1 TAB PO BID DIABETES (Reported) Past History Travel History Traveled to [place] past 21 day No Medical History Cardiovascular: hypertension Endocrine: diabetes Surgical History Surgical History: none Review of Systems Comments Unobtainable Exam & Diagnostic Data Last 24 Hrs of Vital Signs/I&O Vital Signs Date Time Temp Pulse Resp B/P Pulse O2 O2 Flow FiO2 Ox Delivery Rate 03/17 1254 97.8 87 20 160/97 98 Nasal 2.0L Cannula 03/17 1158 82 20 165/93 99 Nasal 2.0L Cannula 03/17 1131 102.0 03/17 1131 102.0 112 42 203/95 03/17 1128 92 40 173/98 97 Nasal 2.0L Cannula 03/17 1121 112 42 203/95 97 Nasal 2.0L Cannula 03/17 1108 98 Nasal 2.0L Cannula 03/17 1108 115 24 190/91 98 Nasal 2.0L Cannula 03/17 0958 99.7 116 24 220/102 98 Room Air Intake & Output 03/17 1600 03/17 0800 03/17 0000 Intake Total 1000 Output Total Balance 1000 Intake, IV 1000 Physical Exam Other Physical Findings: She is obtunded, responsive only to pain, with moaning and groaning. MAXIMUM TEMPERATURE 102. Skin reveals no rash. HEENT exam left tympanic membrane erythematous. Neck appears resistant to flexion, with no adenopathy. Lungs are clear. Heart regular rhythm with no murmur. Abdomen is soft, nontender with positive bowel sounds. Back no CVA tenderness. Extremities no cyanosis, clubbing or edema. Neuro is without focality. Dominguez catheter is in place. Last 24 Hours of Lab Results: Laboratory Tests 03/17 03/17 1050 1045 Chemistry Sodium (137 - 145 mmol/L) 141 Potassium (3.5 - 5.1 mmol/L) 3.3 L Chloride (98 - 107 mmol/L) 99 Carbon Dioxide (22 - 30 mmol/L) 17 L Anion Gap (5 - 16) 25 H BUN (7 - 17 mg/dL) 11 Creatinine (0.5 - 1.0 mg/dL) 0.8 Estimated GFR (>60 ml/min) > 60 BUN/Creatinine Ratio (7 - 25 %) 13.8 Glucose (65 - 99 mg/dL) 315 H Lactic Acid (0.7 - 2.1 mmol/L) 8.8 H Calcium (8.4 - 10.2 mg/dL) 9.8 Magnesium (1.6 - 2.3 mg/dL) 1.3 L Total Bilirubin (0.2 - 1.3 mg/dL) 1.4 H AST (14 - 36 U/L) 29 ALT (9 - 52 U/L) 29 Alkaline Phosphatase (<127 U/L) 92 Troponin I (< 0.11 ng/ml) < 0.01 Total Protein (6.3 - 8.2 g/dL) 7.5 Albumin (3.5 - 5.0 g/dL) 4.3 Globulin (1.9 - 4.2 gm/dL) 3.2 Albumin/Globulin Ratio (1.1 - 2.2 %) 1.3 Prolactin (3.0 - 18.6 ng/mL) 16.1 Coagulation PT (9.4 - 12.5 SEC) 17.2 H INR (0.90 - 1.19) 1.65 H APTT (25 - 37 SEC) 30 Hematology CBC w Diff MAN DIFF ORDERED WBC (4.8 - 10.8 /CUMM) 14.3 H RBC (4.20 - 5.40 /CUMM) 4.84 Hgb (12.0 - 16.0 G/DL) 14.0 Hct (37 - 47 %) 41.8 MCV (81.0 - 99.0 FL) 86.3 MCH (27.0 - 31.0 PG) 29.0 RDW (11.5 - 14.5 %) 13.4 Plt Count (130 - 400 /CUMM) 244 MPV (7.4 - 10.4 FL) 9.6 Gran % (42.2 - 75.2 %) 93.5 H Lymphocytes % (20.5 - 51.1 %) 4.7 L Monocytes % (1.7 - 9.3 %) 1.6 L Eosinophils % (0 - 5 %) 0 Basophils % (0.0 - 2.0 %) 0.2 Absolute Granulocytes (1.4 - 6.5 /CUMM) 13.4 H Segmented Neutrophils (42.2 - 75.2 %) 70 Band Neutrophils (0.0 - 5.0 %) 19 H Absolute Lymphocytes (1.2 - 3.4 /CUMM) 0.7 L Lymphocytes (20.5 - 51.1 %) 5 L Monocytes (1.7 - 9.3 %) 4 Absolute Monocytes (0.10 - 0.60 /CUMM) 0.2 Absolute Eosinophils (0.0 - 0.7 /CUMM) 0 Absolute Basophils (0.0 - 0.2 /CUMM) 0 Metamyelocytes (0.0 - 1.0 %) 2 H Platelet Estimate (ADEQUATE) ADEQUATE Normocytic RBCs VERIFIED Normochromic RBCs VERIFIED PUBS MCHC (33.0 - 37.0 G/DL) 33.5 Toxicology Acetone Level (NEGATIVE) NEGATIVE Urines Urinalysis LIGHT H Urine Color (YEL,AMB,STR) YEL Urine Clarity (CLEAR) HAZY H Urine pH (5.0 - 8.0) 6.0 Ur Specific Linn (1.001 - 1.035) 1.025 Urine Protein (NEG,<30 MG/DL) 100 H Urine Ketones (NEG) 40 H Urine Nitrite (NEG) NEG Urine Bilirubin (NEG) NEG Urine Urobilinogen (0.1 - 1.0 EU/dl) 0.2 Ur Leukocyte Esterase (NEG) NEG Ur Microscopic SEDIMENT EXAMINED Urine RBC (0 - 5 /HPF) 3-5 Urine WBC (0 - 2 /HPF) RARE Ur Epithelial Cells (NONE,FEW) FEW Urine Mucus (FEW,NONE) RARE Urine Hemoglobin (NEG) SMALL H Urine Glucose (N MG/DL) >=1000 H Last 24 Hours of [place] Results: Rapid flu swab negative Diagnostic Data Recent Imaging Findings: CT of the head and maxillofacial area revealed several foci of pneumocephalus in the left temporal lobe with partial opacification of the adjacent left mastoid air cells and middle ear cavity, suspicious for a nondisplaced fracture of the petrous portion of the left temporal bone; partial paranasal sinus opacification CT of the cervical spine negative CT of the chest, abdomen and pelvis no acute process Assessment/Plan Assessment/Plan Impression: This is a 70-year-old woman with a history of diabetes and hypertension who was brought to the emergency room this morning after she was found minimally responsive on the bathroom floor with a one-day history of left ear pain, decreased hearing, diarrhea and fever, found to be febrile and obtunded with a leukocytosis and with a CT scan of the head/maxillofacial area revealing air in the temporal lobe with opacification of the left mastoid air cells and middle ear cavity. I am most concerned about a bacterial meningitis secondary to an otitis media and/or mastoiditis. The air in the temporal lobe could be secondary to a temporal bone fracture, particularly if she fell in the bathroom, or, perhaps, secondary to erosion of the bone secondary to an otitis/ mastoiditis. She will need to be covered empirically for bacterial meningitis, with H. influenzae and strep pneumo of most concern. Other organisms, including Pseudomonas and Staph aureus are possible but are usually associated with more chronic processes. Suggestion: 1. Would perform a lumbar puncture immediately 2. Begin Vancomycin 1 g IV every 24 hours, Ceftriaxone 2 g IV every 12 hours and Ampicillin 2 g IV every 4 hours pending above 3. ENT evaluation 4. Further imaging, for example MRI or CT of the head with IV contrast when stable Consult Acknowledgment - Thank you for your consult request.
--- NOTE | 2016-03-17 14:36 | NUR ---
PT REMOVING NASAL CANNULA AND FORMING WORDS BUT NOT ANSWERING QUESTIONS APPROPRIATELY. FAMILY AT BEDSIDE. PT NOTED TO BE DIAPHORETIC. SHE HAS BEEN CHANGED AND REPOSITIONED AT THIS TIME. VSS. WILL CONTINUE TO MONITOR.
--- NOTE | 2016-03-17 15:28 | NUR ---
PT SENT TO IR FOR LUMBAR PUNCTURE WITH ANESTESIA WITH GALLERY DIRECTOR ATTENDING.
--- NOTE | 2016-03-17 16:18 | History & Physical ---
LAVON ALDRICH,ISHIIL 03/17/16 1617: General Information and HPI Source of Information: family Exam Limitations: unable to give history Allergies/Medications Allergies: Coded Allergies: Sulfa (Sulfonamide Antibiotics) (Intermediate, TURNS RED 03/17/16) Home Med list Aspirin (Ecotrin*) 81 MG TABLET.DR 1 TAB PO DAILY HEART HEALTH (Reported) Atorvastatin Calcium 10 MG TABLET 1 TAB PO DAILY CHOLESTEROL (Reported) Insulin NPL/Insulin Lispro (Humalog Mix 75-25 Kwikpen) 100 UNIT/ML (75-25) INSULN.PEN DIABETES (Reported) Levothyroxine Sodium 25 MCG TABLET 1 TAB PO DAILY AC THYROID (Reported) Losartan Potassium 100 MG TABLET 1 TAB PO DAILY HEART (Reported) Metformin HCl 1,000 MG TABLET 1 TAB PO BID DIABETES (Reported) Past History Travel History Traveled to [place] past 21 day No Medical History Cardiovascular: hypertension Endocrine: diabetes Surgical History Surgical History: N
--- NOTE | 2016-03-17 16:26 | NUR ---
PT ADMITETD TO ROOM 112
--- NOTE | 2016-03-17 16:29 | NUR ---
PT. TRANSPORTED TO AND FROM INTERVENTIONAL RADIOLOGY WHERE LP WAS PERFORMED. DURING PROCEDURE, PT. HAD AN EPISODE OF VOMITING AND POSSIBLE ASPIRATION. HER O2 SATS DROPPED BETWEEN 47 AND 52% NURSE ANESTHESIOLOGIST ATTEMPTED TO HAVE PT. TRANSFERRED TO PACU D/T CONDITION, BUT BED WAS NOT AVAILABLE. PT. TRANSFERRED BACK TO ER, ACCOMPANIED BY NURSE ANESTHESIOLOGIST JENNA. PT. WAS ADMINISTERED VERSED, 2 MG, PRECIDEX, PROPOFOL, AND NS 400 ML DURING PROCEDURE. VSS AT THIS TIME. NO ACUTE DISTRESS NOTED. PT. O2 SAT 98% ON 5L NC. AWAITING TO GIVE REPORT TO ICU.
--- NOTE | 2016-03-17 16:54 | INTERVENTIONAL RADIOLOGY RPT ---
EXAMINATION: Lumbar puncture with fluoroscopic guidance CLINICAL INFORMATION: Altered mental status. Bedside lumbar puncture was unsuccessful. COMPARISON: Same day CT abdomen pelvis. CLINICIAN: Pierre Mejia M.D. MEDICATION: - 5 mL 1% lidocaine utilized for subcutaneous anesthetic. - The anesthesia department provided anesthesia support for today's case. Please see their note for detailed findings. FLUOROSCOPY TIME: 0.5 minutes. PROCEDURE IN DETAIL: Informed consent was obtained from the patient's prior to the procedure. During this process, the procedure and potential alternatives were explained, along with the intended outcome and benefits. The risks of the procedure, as well as the risks of not doing the procedure, were discussed. The patient's was given the opportunity to ask questions regarding the procedure and appeared competent to make medical decisions. A signed consent form which documents this discussion was placed in the medical record. The patient was placed prone on the procedure table following the induction of anesthesia. A final timeout procedure was performed. The skin was marked, prepped and draped in usual sterile fashion. 1% lidocaine was used for local anesthesia. Utilizing C-arm fluoroscopy and sterile technique, a 20-gauge Sprotte needle was advanced into the spinal canal at the L4/L5 level. CSF flowed readily. The CSF was cloudy and light yellow in color. A total of 10 mL was collected sequentially in the 4 test tubes in the lumbar puncture set and sent for the requested laboratory tests. The stylet was replaced and the needle was removed and a Band-Aid applied. Findings were communicated to the clinical service (Pradeep Avery M.D). No immediate complications. IMPRESSION: Successful fluoroscopic-guided lumbar puncture.
--- NOTE | 2016-03-17 16:56 | NUR ---
REPORT GIVEN TO JACLYN RN, IN ICU. PT TO GO TO ROOM 112.
--- NOTE | 2016-03-17 16:58 | NUR ---
CRITICAL TEST RESULTS [id number] SOLOMON PEREZ 70 F TESTS AND RESULTS: CSF WBC 28,5000 Results received and read back by: MAGDY PABLO Results received date and time: 03/17/16 1659 The following provider was notified of the results, and read the results back: FABIOLA PEREZ Notified date and time: 03/17/16 at
--- NOTE | 2016-03-17 17:42 | Cons- Ear,Nose&Throat ---
See Addendum General Information and HPI Consulting Request Date of Consult: 03/17/16 Requested By: AUSTIN ALDRICH,Talisha DICKSON Reason for Consult: meningitis Source of Information: family Exam Limitations: unable to give history, not alert/orientated, confusion History of Present Illness: Patient is 70 yo female with h/o DM and HTN brought to ER when found unresponsive on bathroom floor by . She had a one day h/o left ear pain, fever, diarrhea. CT scan of head showed partial opacification of left mastoid. Aeration of middle ear and air within the mastoid were present. Accompanied by 2 family members including her . Allergies/Medications Allergies: Coded Allergies: Sulfa (Sulfonamide Antibiotics) (Intermediate, TURNS RED 03/17/16) Home Med List: Aspirin (Ecotrin*) 81 MG TABLET.DR 1 TAB PO DAILY HEART HEALTH (Reported) Atorvastatin Calcium 10 MG TABLET 1 TAB PO DAILY CHOLESTEROL (Reported) Insulin NPL/Insulin Lispro (Humalog Mix 75-25 Kwikpen) 100 UNIT/ML (75-25) INSULN.PEN DIABETES (Reported) Levothyroxine Sodium 25 MCG TABLET 1 TAB PO DAILY AC THYROID (Reported) Losartan Potassium 100 MG TABLET 1 TAB PO DAILY HEART (Reported) Metformin HCl 1,000 MG TABLET 1 TAB PO BID DIABETES (Reported) Current Medications: Current Medications Sig/Garrick Start time Last Medication Dose Route Stop Time Status Admin Acetaminophen 1,000 MG Q6-PRN PRN 03/17 1630 UNVr N/A 1 UNIT IV Acetaminophen 0 .STK-MED ONE 03/17 1109 DC IV Acetaminophen 1,000 MG ONCE ONE 03/17 1045 DC 03/17 N/A 1 UNIT IV 03/17 1059 1131 Ampicillin 0 .STK-MED ONE 03/17 1705 DC .ROUTE Ampicillin 2,000 MG Q4 03/17 1515 UNVr Sodium Chloride 100 ML IV Aspirin 300 MG ONCE ONE 03/17 1015 CAN NJ 03/17 1016 Aspirin Buffered 81 MG DAILY 03/18 1000 UNVr PO Atorvastatin Calcium 10 MG DAILY 03/18 1000 UNVr PO Ceftriaxone Sodium 0 .STK-MED ONE 03/17 1707 DC .ROUTE Ceftriaxone Sodium 2,000 MG Q12H 03/17 1515 UNVr 03/17 IV 1724 Dexamethasone 13 MG Q6H 03/17 1515 UNir IV Insulin Human Regular 0 Q6 03/17 1800 UNVr SC Labetalol HCl 0 .STK-MED ONE 03/17 1109 DC IV Labetalol HCl 10 MG ONCE ONE 03/17 1015 DC 03/17 IV 03/17 1016 1131 Levothyroxine Sodium 0.025 MG DAILY AC 03/18 0700 UNVr PO Lidocaine 0 .STK-MED ONE 03/17 1510 DC .ROUTE Lorazepam 0.5 MG ONCE ONE 03/17 1715 UNVr IV 03/17 1716 Lorazepam 0 .STK-MED ONE 03/17 1708 DC .ROUTE Losartan Potassium 100 MG DAILY 03/18 1000 UNVr PO Sodium Chloride 1,000 ML Q8H 03/17 1700 UNVr IV Sodium Chloride 1,000 ML BOLUS ONE 03/17 1500 DC 03/17 IV 03/17 1659 1500 Sodium Chloride 1,000 ML BOLUS ONE 03/17 1230 DC 03/17 IV 03/17 1329 1317 Sodium Chloride 1,000 ML BOLUS ONE 03/17 1230 DC 03/17 IV 03/17 1329 1317 Sodium Chloride 1,000 ML BOLUS ONE 03/17 1230 DC 03/17 IV 03/17 1329 1237 Vancomycin HCl 1,000 MG DAILY 03/17 1515 UNir Dextrose/Water 250 ML IV Past History Medical History Cardiovascular: hypertension Endocrine: diabetes Surgical History Pertinent Surgical History: none Review of Systems Review of Systems: could not obtain due to patient's current mental state unable to respond to questions Exam & Diagnostic Data Vital Signs and I&O Vital Signs Date Time Temp Pulse Resp B/P Pulse O2 O2 Flow FiO2 Ox Delivery Rate 03/17 1729 99 Non 100% ReBreather 03/17 172 97.3 103 22 163/86 99 Non 100% ReBreather 03/17 1640 98.8 79 46 113/69 98 Nasal 5.0L Cannula 03/17 1620 90 38 135/75 98 Nasal 5.0L Cannula 03/17 1435 88 32 155/80 98 Nasal 2.0L Cannula 03/17 1401 90 20 159/90 99 Nasal 2.0L Cannula 03/17 1317 97.8 03/17 1311 98 Nasal Cannula 03/17 1254 97.8 87 20 160/97 98 Nasal 2.0L Cannula 03/17 1158 82 20 165/93 99 Nasal 2.0L Cannula 03/17 1131 102.0 03/17 1131 102.0 112 42 203/95 03/17 1128 92 40 173/98 97 Nasal 2.0L Cannula 03/17 1121 112 42 203/95 97 Nasal 2.0L Cannula 03/17 1108 98 Nasal 2.0L Cannula 03/17 1108 115 24 190/91 98 Nasal 2.0L Cannula 03/17 0958 99.7 116 24 220/102 98 Room Air Intake & Output 03/17 1600 03/17 0800 03/17 0000 03/16 1600 03/16 0800 03/16 0000 Intake Total 1000 Output Total Balance 1000 Intake, IV 1000 Physical Exam: patient laying in stretcher unable to respond to questions or commands moving all extremities Ear: left TM has erythema , no sign of CSF leak right TM normal Nose: clear OC/OP - clear Neck supple Assessment/Plan Assessment/Plan 70 yo white female found unresponsive this morning in bathroom by . No evidence of any obvious trauma in bathroom - objects knocked over, blood on floor or antonio, no bruising of face. CT shows partial opacification of mastoid left and middle ear, though aeration definitely present in both. Sinuses also show partial opacification without any complete opacification throughout any of the sinuses. Likely Meningitis, being treated with empiric IV antibiotics. One day h/o of left otalgia raises possibility of left ear source. Continue IV antibiotics until cultures results available. Will need CT temporal bone once stable enough to undergo. Thanks John Patel MD, FACS Consult Acknowledgment - Thank you for your consult request. Attending Review Statement Attending Statement Attending MD Statement: examined this patient, discussed with family, reviewed EMR data (avail), reviewed images
--- NOTE | 2016-03-17 17:46 | RADIOLOGY REPORT ---
EXAMINATION: XR PORTABLE CHEST CLINICAL INFORMATION: Aspiration pneumonia COMPARISON: CT from earlier today TECHNIQUE: Portable view of the chest was obtained. FINDINGS: Lung volumes are symmetric. There is suggestion of mild patchy opacity at the right lung base. No pneumothorax is seen, though assessment is limited with supine positioning. No significant pleural effusion. The cardiomediastinal contour is unremarkable. No acute osseous findings are seen. IMPRESSION: Possible mild patchy right basilar opacity; continued radiographic follow-up would be helpful.
--- NOTE | 2016-03-17 17:50 | NUR ---
[facility] CALLED TO TRANSFER PT
--- NOTE | 2016-03-17 18:12 | History & Physical ---
LIN PENALOZA 03/17/161811: General Information and HPI MD Statement: I have seen and personally examined SOLOMON LESLIE and documented this H&P. Source of Information: family Exam Limitations: unable to give history, not alert/orientated, confusion History of Present Illness: Mrs. Leslie, 70-year-old female with significant past medical history of hypertension, hyperlipidemia, hypothyroidism and diabetes who presented to the hospital emergency department after being found unresponsive. Please note that she is unable to communicate and history was obtained from the family. Per the and sons were at the bedside, she was doing well yesterday morning. Yesterday evening she complained of left ear pain as well as a fever/ headache and some diarrhea. She subsequently put hydrogen peroxide in her ear. She went to bed and was found this morning in the family bathroom on the ground. Per the son, he feels she most likely fell this morning today as opposed to late last night as he used the bathroom before work at approximately 6 AM. The subsequently found the patient lying on the floor next to the toilet in a sleeping position on her side. The family states that there were no signs of trauma/blood and they do not feel that the patient fell. The state that she does have sick contacts as she visits her mother in the [place] quite frequently. Aside from this, they state that the patient has been doing well and has not mentioned any other complaints. Allergies/Medications Allergies: Coded Allergies: Sulfa (Sulfonamide Antibiotics) (Intermediate, TURNS RED 03/17/16) Home Med list Aspirin (Ecotrin*) 81 MG TABLET.DR 1 TAB PO DAILY HEART HEALTH (Reported) Atorvastatin Calcium 10 MG TABLET 1 TAB PO DAILY CHOLESTEROL (Reported) Insulin NPL/Insulin Lispro (Humalog Mix 75-25 Kwikpen) 100 UNIT/ML (75-25) INSULN.PEN DIABETES (Reported) Levothyroxine Sodium 25 MCG TABLET 1 TAB PO DAILY AC THYROID (Reported) Losartan Potassium 100 MG TABLET 1 TAB PO DAILY HEART (Reported) Metformin HCl 1,000 MG TABLET 1 TAB PO BID DIABETES (Reported) Past History Travel History Traveled to [place] past 21 day No Medical History Cardiovascular: hypertension Endocrine: diabetes Surgical History Surgical History: N Past Family/Social History Functional Ability ADLs Independent: dressing, eating, toileting, bathing. Ambulation: independent IADLs Independent: shopping, housework, finances, food prep, telephone, transportation , medication admin. Review of Systems Review of Systems Constitutional: Reports: see HPI. Exam & Diagnostic Data Last 24 Hrs of Vital Signs/I&O Vital Signs Date Time Temp Pulse Resp B/P Pulse O2 O2 Flow FiO2 Ox Delivery Rate 03/17 1729 99 Non 100% ReBreather 03/17 1727 97.3 103 22 163/86 99 Non 100% ReBreather 03/17 1640 98.8 79 46 113/69 98 Nasal 5.0L Cannula 03/17 1620 90 38 135/75 98 Nasal 5.0L Cannula 03/17 1435 88 32 155/80 98 Nasal 2.0L Cannula 03/17 1401 90 20 159/90 99 Nasal 2.0L Cannula 03/17 1317 97.8 03/17 1311 98 Nasal Cannula 03/17 1254 97.8 87 20 160/97 98 Nasal 2.0L Cannula 03/17 1158 82 20 165/93 99 Nasal 2.0L Cannula 03/17 1131 102.0 03/17 1131 102.0 112 42 203/95 03/17 1128 92 40 173/98 97 Nasal 2.0L Cannula 03/17 1121 112 42 203/95 97 Nasal 2.0L Cannula 03/17 1108 98 Nasal 2.0L Cannula 03/17 1108 115 24 190/91 98 Nasal 2.0L Cannula 03/17 0958 99.7 116 24 220/102 98 Room Air Intake & Output 03/17 1600 03/17 0800 03/17 0000 Intake Total 1000 Output Total Balance 1000 Intake, IV 1000 Physical Exam General Appearance Moderate Distress, AAO x0, lying uncomfortably in bed, rolling side to side within audible speech. At times she appeared to be stuporous and unresponsive. She was maintaining her airway well HEENT Atraumatic, PERRLA, extraocular movements could not be assessed, otoscopy not performed due to agitation Neck Supple, No JVD, neck flexion or range of motion could not be assessed Cardiovascular Regular Rate, Normal S1, Normal S2 Lungs Clear to Auscultation, Normal Air Movement Abdomen Normal Bowel Sounds, Soft, No Tenderness Neurological Strength at 5/5 X4 Ext Extremities No Edema, cap refill WNL Last 24 Hrs of Labs/[place]: Laboratory Tests 03/17/16 1550: CSF Glucose < 20 L, CSF Total Protein > 600 H 03/17/16 1550: Lymphocytes 1, % Normal PMNs 97, CSF WBC 66737 *H, CSF RBC 611 H, CSF Comment 03/17/16 1410: Lactic Acid 9.3 H 03/17/16 1345: pH 7.36, pCO2 24 L, pO2 106 H, HCO3 13 L, ABG O2 Sat (Measured) 97.0, Carboxyhemoglobin 0.1 L, O2 Concentration % 2L, O2 Delivery Method NC, Phlebotomy Draw Site RIGHT RADIAL 03/17/16 1050: Anion Gap 25 H, Estimated GFR > 60, BUN/Creatinine Ratio 13.8, Glucose 315 H, Lactic Acid 8.8 H, Calcium 9.8, Magnesium 1.3 L, Total Bilirubin 1.4 H, AST 29, ALT 29, Alkaline Phosphatase 92, Creatine Kinase 80, Troponin I < 0.01, Total Protein 7.5, Albumin 4.3, Globulin 3.2, Albumin/Globulin Ratio 1.3, Prolactin 16.1, PT 17.2 H, INR 1.65 H, APTT 30, CBC w Diff MAN DIFF ORDERED, RBC 4.84, MCV 86.3, MCH 29.0, RDW 13.4, MPV 9.6, Gran % 93.5 H, Lymphocytes % 4.7 L, Monocytes % 1.6 L, Eosinophils % 0, Basophils % 0.2, Absolute Granulocytes 13.4 H, Segmented Neutrophils 70, Band Neutrophils 19 H, Absolute Lymphocytes 0.7 L, Lymphocytes 5 L, Monocytes 4, Absolute Monocytes 0.2, Absolute Eosinophils 0, Absolute Basophils 0, Metamyelocytes 2 H, Platelet Estimate ADEQUATE, Normocytic RBCs VERIFIED, Normochromic RBCs VERIFIED, PUBS MCHC 33.5, Acetone Level NEGATIVE 03/17/16 1045: Urinalysis LIGHT H, Urine Color YEL, Urine Clarity HAZY H, Urine pH 6.0, Ur Specific [place] 1.025, Urine Protein 100 H, Urine Ketones 40 H, Urine Nitrite NEG, Urine Bilirubin NEG, Urine Urobilinogen 0.2, Ur Leukocyte Esterase NEG, Ur Microscopic SEDIMENT EXAMINED, Urine RBC 3-5, Urine WBC RARE, Ur Epithelial Cells FEW, Urine Mucus RARE, Urine Hemoglobin SMALL H, Urine Glucose >=1000 H Microbiology 03/17 1550 CENT N S: CSF Culture - RES 03/17 1550 CENT N S: Gram Stain - RES 03/17 105 URINE ROUT: Urine Culture - RECD 03/17 105 BLOOD: Blood Culture - RECD 03/17 105 BLOOD: Blood Culture - RECD Diagnostic Data CXR Results SERVICE DATE: 03/17/16-170 EXAM TYPE: RAD - XRY-PORTABLE CHEST XRAY EXAMINATION: XR PORTABLE CHEST CLINICAL INFORMATION: Aspiration pneumonia COMPARISON: CT from earlier today TECHNIQUE: Portable view of the chest was obtained. FINDINGS: Lung volumes are symmetric. There is suggestion of mild patchy opacity at the right lung base. No pneumothorax is seen, though assessment is limited with supine positioning. No significant pleural effusion. The cardiomediastinal contour is unremarkable. No acute osseous findings are seen. IMPRESSION: Possible mild patchy right basilar opacity; continued radiographic follow-up would be helpful. Other Results SERVICE DATE: 03/17/16-1014 EXAM TYPE: CAT - CT CERV SPINE WO IV CONTRAST; CT HEAD WO IV CONTRAST EXAMINATION: NONCONTRAST HEAD CT NONCONTRAST CERVICAL SPINE CT INDICATION INFORMATION: Altered mental status COMPARISON: None TECHNIQUE: Separate noncontrast CT examinations of the head and cervical spine were performed. Coronal and sagittal images were created for each examination at the technologist workstation. DLP: 965.27 mGy-cm FINDINGS: Head: Several foci of pneumocephalus are noted in the left temporal lobe. There is partial opacification of the adjacent left mastoid air cells and middle ear cavity. Overall appearance is suspicious for sequelae of a nondisplaced fracture through the petrous portion of the temporal bone. No definite acute intracranial hemorrhage. No evidence of acute territorial infarction. No abnormal mass-effect or midline shift is seen. Cage to white matter differentiation is well preserved. No extra-axial fluid collections are identified. The ventricles are normal in size. The osseous structures and soft tissues are normal. There is partial opacification of the right mastoid air cells. There is mucosal thickening of the left maxillary sinus. The right mastoid air cells are well aerated. Cervical spine: There is anatomic alignment of the vertebral bodies and posterior elements. There is degenerative change at the atlantodens articulation. Vertebral body heights and intervertebral disc spaces are maintained. Multilevel facet arthropathy is present. Mild endplate osteophytes are noted. No evidence of acute fracture. No prevertebral soft tissue swelling. Visualized portions of the lung apices are unremarkable. The thyroid gland is unremarkable. IMPRESSION: 1. Head: Several foci of pneumocephalus in the left temporal lobe as well as partial opacification of the adjacent left mastoid air cells and middle ear cavity. Appearance is most suspicious for a nondisplaced fracture of the petrous portion of the left temporal bone. No definite acute intracranial hemorrhage. 2. Cervical spine: No acute findings identified. SERVICE DATE: 03/17/16 EXAM TYPE: CAT - CT ABD & PELVIS W/O IV CONTRAS; CT CHEST WO IV CONTRAST EXAM: NONCONTRAST CT OF THE CHEST; NONCONTRAST CT OF THE ABDOMEN AND PELVIS INDICATION: Altered mental status COMPARISON: None TECHNIQUE: No IV contrast was utilized. Multidetector helical imaging was performed through the chest, abdomen, and pelvis. Coronal and sagittal reformatted images were created at the technologist workstation. DLP: 1158.73 mGy-cm FINDINGS: Chest: There is a 3 mm left lower lobe nodule on image 15/42. There is a 5 mm left lower lobe nodule on image 36/42. No regions of consolidation bilaterally. No pneumothorax or pleural effusions. The visualized thyroid gland is unremarkable. A small to moderate-sized hiatal hernia is present. There are subcentimeter mediastinal lymph nodes within the range of normal variation. Cardiac size is within normal limits; no pericardial effusion. Coronary artery calcifications are present. No axillary lymphadenopathy is present. Abdomen/Pelvis: The liver is homogeneous in attenuation without intrahepatic biliary ductal dilatation. The gallbladder is unremarkable. There is partial fatty atrophy of the pancreas. The spleen and adrenal glands are within normal limits. There is suggestion of a small exophytic right upper pole renal cyst, not well assessed due to motion artifact. The unenhanced kidneys are otherwise unremarkable without hydronephrosis. No renal or ureteral calculi are present. The urinary bladder is unremarkable. Patient is status post hysterectomy. Colonic diverticulosis is noted. The small and large bowel are otherwise unremarkable without evidence of obstruction or pericolonic inflammatory change. The appendix is unremarkable. No free fluid or free air is present. Scattered atherosclerotic calcifications are present. No retroperitoneal or pelvic lymphadenopathy is seen. Degenerative changes are noted in the spine. IMPRESSION: 1. No acute findings identified in the chest, abdomen, or pelvis. 2. Left lower lobe 5 mm and 3 mm lung nodules, nonspecific. In the absence of prior studies for comparison, 12 month follow-up chest CT is recommended. 3. Small to moderate-sized hiatal hernia. 4. Suggestion of a small exophytic right upper pole renal cyst. Correlation with renal ultrasound is advised to exclude a mass. SERVICE DATE: 03/17/16 EXAM TYPE: CAT - CT MAXILLOFACIAL W/O CON EXAMINATION: CT MAXILLOFACIAL WITHOUT CONTRAST CLINICAL INFORMATION: Fall, skull fracture COMPARISON: Head CT from earlier today TECHNIQUE: Multidetector helical imaging was performed in the axial plane with generation of coronal and sagittal reformatted images. DLP: 718.63 mGy-cm. FINDINGS: There are several foci of pneumocephalus in the left temporal lobe, as seen on today's earlier head CT. There is also redemonstration of partial opacification of the left mastoid air cells and middle ear cavity. Appearance is concerning for a fracture through the petrous portion of the left temporal bone. Tiny osseous densities are noted posterior to the temporal bone such as on image 149/257. There is partial opacification of the mastoid air cells bilaterally, right greater than left. There is mucosal thickening of the bilateral maxillary sinuses, sphenoid sinuses, and right frontal sinus. The left frontal sinus is clear. There is opacification of the the infundibula bilaterally. The mandibular condyles are well-seated in the condylar fossa. The orbits demonstrate a normal appearance bilaterally. The globes are intact, and there are no suspicious findings to suggest retrobulbar hemorrhage. Degenerative changes are present in the visualized cervical spine. IMPRESSION: 1. Redemonstrated foci of pneumocephalus in the left temporal lobe with adjacent partial opacification of the left mastoid air cells and middle ear cavity. Tiny osseous densities are seen posterior to the petrous portion of the left temporal bone, raising concern for sequelae of temporal bone fracture in the setting of trauma. Alternatively, mastoiditis could have a similar appearance in the proper clinical setting. 2. Partial paranasal sinus opacification as described above. Assessment/Plan Assessment: Mrs. Leslie, 70-year-old female with significant past medical history of hypertension, hyperlipidemia, hypothyroidism and diabetes who presented to the hospital emergency department after being found unresponsive. She did have complaints yesterday of left ear ache, headache and fever as well as diarrhea. Vitals on admission, temperature 99.7 [trended up to 102], heart rate 1 16 bpm, respiratory rate 24, BP 220/102, saturating 98% on room air. Her vitals later trended down to temperature 98.8, ulcerated 79, respiratory rate 46, blood pressure 113/69 saturating 98% on room air. Labs are significant for an elevated white count 14.3 [70 segmented neutrophils, 19 bands and 2 metamyelocytes], H&H 14/41.8. Chemistry sodium 141 potassium 3.3 , bicarbonate 17, anion gap 25, BUN/creatinine 11/0.8, glucose 3:15. Lactic acid elevated to 8.8 with a repeat 3 hours later, 9.3. Magnesium 1.3. Troponin less than 0.01. UA unremarkable for infection. Imaging has dictated above, revealed pneumocephalus in the left temporal lobe with partial opacification of the adjacent left mastoid air cells and middle ear cavity, and partial paranasal sinus opacification. Problem list/assessment and plan Severe Sepsis with altered mental status * She does meet severe sepsis criteria as her lactic acid is above 4. * Clincial/Radiographic findings suggesting meningitis/encephalitis vs trauma. Infection more likely 2/2 WBC and fever/complaints yesterday * Infectious Disease/Neuro/ENT consults appreciated * Patient has received 4L of NS bolus so far, and we will continue hydration with NS at 125 cc/hr * LP pending - the most common causes of bacterial meningitis are S. pneumoniae (71%), N. meningitidis (12%), group B Streptococcus (7%), H. influenzae (6%), and L. monocytogenes (4%) - Uptodate * We will therefore start empiric ABx with Ceftriaxone (2g q12h), Vanco (1g qD) and Ampicillin 2g q4h (to cover for Lysteria as incidence increases in patients over 50 yo). * We will also dose with IV steroids - decadron 0.15mg/kg q6h. The patient could not be weighed, therefore the family was asked the patients weight and it was dosed accordingly. Please weigh the patient when she moves to the ICU. * Given her steroid use, and ICU admission (reduce the frequency of overt GI bleeding in critically ill patients compared to placebo or no prophylaxis in cricially ill patients), we we also start GI ppx with protonix 40mg daily IV. * We will also give IV tylenol for temperature control. DM/HTN/hypothyroid/HLD * Hold metformin and start Novolin NPO sliding scale for now * continue HTN/HLD meds when she tolerates a diet * If BP goes up again, consider IV options - hydralazine, labetolol/metoprolol, nicardipine FULL CODE ALPS for DVT ppx NPO GI ppx pain pathway As Ranked By This Provider Problem List: 1. Lactic acidosis 2. Altered mental state 3. Left otitis media 4. Sepsis 5. Meningitis Core Measures/Miscellaneous Acute Coronary Syndrome ACS Diagnosis: No Cerebrovascular Accident CVA/TIA Diagnosis: No Bedside Swallow Eval Done: No Result of Evaluation: Fail Congestive Heart Failure CHF Diagnosis: No Venous Thromboembolism VTE Risk Factors: Acute medical illness, Age > 40 VTE Prophylaxis Ordered Inpt: Mechanical (ALPS/TEDS) No Mech VTE prophylaxis d/t: No contraindications No VTE Pharm Prophylaxis d/t: Medical contraindication (LP) VTE Diagnosis: No VTE Type: NONE VTE Confirmed by (Test): NONE Severe Sepsis Severe Sepsis Present: Yes BC x2: Yes Lactic Acid x2: Yes IV ABX Broad Spectrum: Yes NS/LR Started: Yes Septic Shock Septic Shock Present: No Miscellaneous Documentation Attending Case Discussed With: Talisha VAILA MD Primary Care Physician: EILEEN MONK MD Patient sees these Specialists na Level of Patient Care: Critical Care (CRI) Talisha AVILA MD 03/17/165: Attending MD Review Statement Attending Statement Attending MD Statement: examined this patient, discuss w/resident/PA/NUCLEAR EQUIPMENT OPERATOR, agreed w/resident/PA/NUCLEAR EQUIPMENT OPERATOR, discussed with family, reviewed EMR data (avail), discussed with nursing, reviewed images, amended to note Attending Assessment/Plan: I have personally seen and examined the patient initially approximately 12:15. I agree with the resident's assessment and plan as above. Briefly, the patient is a 7-year-old female with a history significant for hypertension, hyperlipidemia, hypothyroidism and diabetes. The patient presented with 1 day history of left ear pain, fever, headache and diarrhea. She was found on the floor in her bathroom with an acute change in mental status. She was subsequently brought to the emergency department for evaluation. The patient had a CT scan that showed a foci of pneumocephalus in the left temporal lobe with adjacent parietal opacification of the left mastoid air cells and middle ear cavity. There was a question of a temporal bone fracture however there was no evidence of trauma. She also had partial paranasal sinus opacification. Laboratory studies revealed significant metabolic acidosis along with electrolyte abnormalities. She has been evaluated by both neurology and ID. A lumbar puncture has been ordered and empiric antibiotics will be started immediately following the procedure. The patient will receive IV Decadron. She will remain nothing by mouth with IV fluids for support. We will stop the patient's outpatient oral medications and provide her with sliding scale insulin. We will monitor her mental status closely and provide her with support if she deteriorates. Also, the patient is severely acidemic and may face respiratory decompensation if she worsens. I've discussed the case with ID at length. I discussed the plan of care with the housestaff as well. I have informed the patient's family at the bedside of our concerns and current plan. The patient is critically ill and will be monitored in the ICU closely. She has the potential for poor prognosis.
--- NOTE | 2016-03-17 19:34 | Event Note ---
Event Note Event Note: I have re-evaluated and examined patient for ongoing follow up. The patient underwent an LP by interventional radiology noting that she had elevated opening pressures and her CSF was cloudy and light in color. The procedure was done under anesthesia with Precedex. The procedure was complicated noting the patient vomited and aspirated resulting in oxygen desaturation. She is now saturating 99% on a nonrebreather. A postprocedure chest x-ray showed a mild patchy right basilar opacity. Post procedure, the patient has received ceftriaxone, ampicillin and vancomycin. She has been receiving Decadron as scheduled. The patient remains confused and agitated. She is not able to offer any history. She is moving all extremities independently. She has an increased respiratory rate with some mild paradoxical breathing. Repeat labs have been ordered, drawn and are pending however it is noted that the patient's lactic acid has increased during the day. Her current ABG shows a pH 7.36, PCO2 29, PO2 193, and a bicarbonate of 16. At this time, we will continue the patient on broad-spectrum empiric antibiotics , and follow up culture results. She will be placed on BiPAP to determine if this improves her respiratory status. We will have a low threshold for intubation if the patient's respiratory status deteriorates. We will follow up lab results and replace electrolytes accordingly. We will continue to monitor the patient's neurologic status closely. She will continue to be nothing by mouth and on IV fluids for support. We will provide the patient with pain control if necessary. She'll be continued on DVT prophylaxis. We will continue to follow the patient's labs every 8 hours. She will be monitored closely in the intensive care unit. I have discussed the plan of care with the housestaff and I have informed the patient's family at the bedside that she is critically ill and has the potential for a poor prognosis.
[2016-03-17 19:53] LABS: ABSOLUTE BASOPHIL COUNT 0.1 /CUMM (0.0-0.2); ABSOLUTE EOSINOPHIL COUNT 0 /CUMM (0.0-0.7); ABSOLUTE GRANULOCYTE CT 19.6 /CUMM (1.4-6.5); ABSOLUTE LYMPH COUNT 0.7 /CUMM (1.2-3.4); ABSOLUTE MONOCYTE COUNT 0.9 /CUMM (0.10-0.60); BASOPHIL % 0.2 % (0.0-2.0); EOSINOPHIL % 0 % (0-5); MEAN CORPUSCULAR HGB 29.1 PG (27.0-31.0); MEAN CORPUSCULAR HGB CONC 33.3 G/DL (33.0-37.0); MEAN CORPUSCULAR VOLUME 87.5 FL (81.0-99.0); MEAN PLATELET VOLUME 9.8 FL (7.4-10.4); PLATELET COUNT 203 /CUMM (130-400); RBC DISTRIBUTION WIDTH 13.5 % (11.5-14.5); RED BLOOD CELL CT 3.93 /CUMM (4.20-5.40); WHITE BLOOD CELL COUNT 21.2 /CUMM (4.8-10.8)
[2016-03-17 19:54] LABS: GRANULOCYTE % 92.3 % (42.2-75.2); HEMATOCRIT 34.4 % (37-47)
[2016-03-18] VITALS: BP 132/84
[2016-03-18 00:47] LABS: ABSOLUTE BASOPHIL COUNT 0 /CUMM (0.0-0.2); ABSOLUTE EOSINOPHIL COUNT 0 /CUMM (0.0-0.7); ABSOLUTE GRANULOCYTE CT 19.1 /CUMM (1.4-6.5); ABSOLUTE LYMPH COUNT 0.6 /CUMM (1.2-3.4); ABSOLUTE MONOCYTE COUNT 0.8 /CUMM (0.10-0.60); BASOPHIL % 0 % (0.0-2.0); EOSINOPHIL % 0 % (0-5); GRANULOCYTE % 93.1 % (42.2-75.2); HEMATOCRIT 32.4 % (37-47); MEAN CORPUSCULAR HGB 29.1 PG (27.0-31.0); MEAN CORPUSCULAR HGB CONC 34.3 G/DL (33.0-37.0); MEAN PLATELET VOLUME 9.4 FL (7.4-10.4); PLATELET COUNT 199 /CUMM (130-400); RBC DISTRIBUTION WIDTH 13.7 % (11.5-14.5); RED BLOOD CELL CT 3.82 /CUMM (4.20-5.40); WHITE BLOOD CELL COUNT 20.5 /CUMM (4.8-10.8)
[2016-03-18 05:16] LABS: ABSOLUTE BASOPHIL COUNT 0 /CUMM (0.0-0.2); ABSOLUTE EOSINOPHIL COUNT 0 /CUMM (0.0-0.7); ABSOLUTE GRANULOCYTE CT 22.2 /CUMM (1.4-6.5); ABSOLUTE LYMPH COUNT 0.8 /CUMM (1.2-3.4); BASOPHIL % 0 % (0.0-2.0); EOSINOPHIL % 0 % (0-5); GRANULOCYTE % 92.5 % (42.2-75.2); HEMATOCRIT 34.1 % (37-47); MEAN CORPUSCULAR HGB 29.4 PG (27.0-31.0); MEAN CORPUSCULAR HGB CONC 33.4 G/DL (33.0-37.0); MEAN CORPUSCULAR VOLUME 87.9 FL (81.0-99.0); MEAN PLATELET VOLUME 9.5 FL (7.4-10.4); PLATELET COUNT 185 /CUMM (130-400); RBC DISTRIBUTION WIDTH 13.5 % (11.5-14.5); RED BLOOD CELL CT 3.88 /CUMM (4.20-5.40)
[2016-03-18 08:00] VITALS: BP 152/84
--- NOTE | 2016-03-18 08:12 | RADIOLOGY REPORT ---
EXAMINATION: XR PORTABLE CHEST CLINICAL INFORMATION: Altered mental status. COMPARISON: 03/17/2016 TECHNIQUE: Portable view of the chest was obtained. FINDINGS: Cardiac leads overlie the chest. Low lung volumes. There is increasing right basilar patchy opacity. Bilateral hazy perihilar opacities noted. No pneumothorax. Small left pleural effusion is increased. The cardiomediastinal silhouette is unchanged. IMPRESSION: 1. Increasing patchy right basilar opacity may represent pneumonia. 2. Increasing perihilar opacities with small left pleural effusion. The appearance could also represent developing fluid overload. Continued follow-up.
--- NOTE | 2016-03-18 09:28 | PN- CRCU ---
Subjective HPI/Critical Care Issues: The patient remains delirious and commands. She is agitated and moving all of her extremities independently. She is diaphoretic but as per the family, this is her baseline. The patient was taken off BiPAP in the evening and placed on 3 L nasal cannula with saturations in the mid 90s. The patient's MAXIMUM TEMPERATURE is 97.4. She is intermittently tachycardic. She has an elevated respiratory rate at times particularly when she is agitated. Objective Current Medications: Current Medications Sig/Garrick Start time Last Medication Dose Route Stop Time Status Admin Acetaminophen 1,000 MG Q6P PRN 03/17 1945 AC N/A 1 UNIT IV Acetaminophen 650 MG Q6P PRN 03/17 1915 DC PO Acetaminophen 1,000 MG Q6-PRN PRN 03/17 1630 AC N/A 1 UNIT IV Acetaminophen 0 .STK-MED ONE 03/17 1109 DC IV Acetaminophen 1,000 MG ONCE ONE 03/17 1045 DC 03/17 N/A 1 UNIT IV 03/17 1059 1131 Ampicillin 2,000 MG Q4H 03/18 0300 03/18 Sodium Chloride 100 ML IV 0639 Ampicillin 2,000 MG Q4 03/17 2200 DC 03/17 Sodium Chloride 100 ML IV 2304 Ampicillin 0 .STK-MED ONE 03/17 1705 DC .ROUTE Ampicillin 2,000 MG Q4 03/17 1515 DC 03/17 Sodium Chloride 100 ML IV 1744 Aspirin 300 MG ONCE ONE 03/17 1015 CAN ME 03/17 1016 Aspirin Buffered 81 MG DAILY 03/18 1000 CAN PO Atorvastatin Calcium 10 MG 1700 03/18 1700 CAN PO Ceftriaxone Sodium 0 .STK-MED ONE 03/17 1707 DC .ROUTE Ceftriaxone Sodium 2,000 MG Q12H 03/17 1515 AC 03/18 IV 0305 Dexamethasone 13 MG Q6H 03/18 0000 AC 03/18 Dextrose/Water 50 ML IV 0535 Dexamethasone 13 MG Q6H 03/17 1515 DC 03/17 Dextrose/Water 50 ML IV 1744 Furosemide 20 MG ONCE ONE 03/18 0745 DC 03/18 IV 03/18 0746 0824 Insulin Human Regular 0 Q6 03/17 1800 AC 03/18 SC 0534 Labetalol HCl 0 .STK-MED ONE 03/17 1109 DC IV Labetalol HCl 10 MG ONCE ONE 03/17 1015 DC 03/17 IV 03/17 1016 1131 Levothyroxine Sodium 0.025 MG DAILY AC 03/18 0700 CAN PO Levothyroxine Sodium 12.5 MCG DAILY AC 03/18 0700 AC 03/18 IV 0824 Lidocaine 0 .STK-MED ONE 03/17 1510 DC .ROUTE Lorazepam 1 MG Q2 HRS NEEDED PRN 03/17 2100 AC 03/18 IV 0639 Lorazepam 0.5 MG ONCE ONE 03/17 2014 DC 03/17 IV 03/17 Lorazepam 1 MG ONCE ONE 03/17 1745 DC IV 03/17 1746 Lorazepam 0.5 MG ONCE ONE 03/17 1715 CAN IV 03/17 1716 Lorazepam 0 .STK-MED ONE 03/17 1708 DC .ROUTE Losartan Potassium 100 MG DAILY 03/18 1000 CAN PO Magnesium Sulfate 1 GM ONCE ONE 03/18 0200 DC 03/18 Dextrose/Water 100 ML IV 03/18 0559 0204 Magnesium Sulfate 1 GM .STK-MED ONE 03/17 2202 DC IM 03/17 220 Magnesium Sulfate 1 GM .STK-MED ONE 03/17 2056 DC IM 03/17 205 Magnesium Sulfate 1 GM Q2H 03/17 2014 DC 03/17 Dextrose/Water 100 ML IV 03/18 0014 2206 Morphine Sulfate 1 MG ONCE ONE 03/17 1945 DC 03/17 IV 03/17 194 1942 Oxycodone/ 1 TAB Q6P PRN 03/17 1915 DC Acetaminophen PO Pantoprazole Sodium 40 MG DAILY 03/18 1000 AC IV Potassium Chloride 10 MEQ Q1H 03/17 2014 DC 03/17 IV 03/17 2116 2207 Potassium Chloride 40 MEQ Q8H 03/17 2015 AC 03/18 Sodium Chloride 1,000 ML IV 0534 Sodium Chloride 1,000 ML Q8H 03/17 1700 DC 03/17 IV 1845 Sodium Chloride 1,000 ML BOLUS ONE 03/17 1500 DC 03/17 IV 03/17 1659 1500 Sodium Chloride 1,000 ML BOLUS ONE 03/17 1230 DC 03/17 IV 03/17 1329 1317 Sodium Chloride 1,000 ML BOLUS ONE 03/17 1230 DC 03/17 IV 03/17 1329 1317 Sodium Chloride 1,000 ML BOLUS ONE 03/17 1230 DC 03/17 IV 03/17 1329 1237 Vancomycin HCl 1,000 MG 1900 03/18 1900 AC Dextrose/Water 250 ML IV Vancomycin HCl 1,000 MG DAILY 03/17 1515 DC 03/17 Dextrose/Water 250 ML IV 1845 Vital Signs & I&O Last 24 Hrs of Vitals and I&O: Vital Signs Date Time Temp Pulse Resp B/P Pulse O2 O2 Flow FiO2 Ox Delivery Rate 03/18 0745 111 95 03/18 0400 94 Nasal 3.0L Cannula 03/18 0000 97.4 108 28 132/84 96 Nasal 3.0L Cannula 03/18 0000 97 Nasal 3.0L Cannula 03/17 2223 104 98 03/17 1999 98 BIPAP 40% 03/17 1941 106 98 03/17 1835 98 Non 100% ReBreather 03/17 1729 99 Non 100% ReBreather 03/17 1727 97.3 103 22 163/86 99 Non 100% ReBreather 03/17 1640 98.8 79 46 113/69 98 Nasal 5.0L Cannula 03/17 1620 90 38 135/75 98 Nasal 5.0L Cannula 03/17 1435 88 32 155/80 98 Nasal 2.0L Cannula 03/17 1401 90 20 159/90 99 Nasal 2.0L Cannula 03/17 1317 97.8 03/17 1311 98 Nasal Cannula 03/17 1254 97.8 87 20 160/97 98 Nasal 2.0L Cannula 03/17 1158 82 20 165/93 99 Nasal 2.0L Cannula 03/17 1131 102.0 03/17 1131 102.0 112 42 203/95 03/17 1128 92 40 173/98 97 Nasal 2.0L Cannula 03/17 1121 112 42 203/95 97 Nasal 2.0L Cannula 03/17 1108 98 Nasal 2.0L Cannula 03/17 1108 115 24 190/91 98 Nasal 2.0L Cannula 03/17 0958 99.7 116 24 220/102 98 Room Air Intake & Output 03/18 1600 03/18 0800 03/18 0000 Intake Total 1321 801 Output Total 1150 750 Balance 171 51 Intake, IV 1321 801 Number 2 1 Bowel Movements Output, Urine 1150 750 Exam General Appearance: lethargic, mild distress, agitated Head: atraumatic Neck: stiffness? Respiratory: decreased breath sounds, a few scattered rhonchi and crackles are heard Cardiovascular: regular rate/rhythm, tachycardia Abdomen: normal bowel sounds, soft, non-tender Extremities: no edema Skin: intact, normal color, warm/dry Results Last 24 Hrs of Lab Results: Laboratory Tests 03/18/16 0440: Anion Gap 11, Estimated GFR > 60, Glucose 218 H, Lactic Acid 2.8 H, Calcium 8.2 L, Phosphorus 2.5, Magnesium 2.0, Total Bilirubin 0.6, AST 32, ALT 40, Albumin 3.4 L, CBC w Diff MAN DIFF ORDERED, RBC 3.88 L, MCV 87.9, MCH 29.4, RDW 13.5, MPV 9.5, Gran % 92.5 H, Lymphocytes % 3.4 L, Monocytes % 4.1, Eosinophils % 0, Basophils % 0 L, Absolute Granulocytes 22.2 H, Segmented Neutrophils 71, Band Neutrophils 27 H, Absolute Lymphocytes 0.8 L, Lymphocytes 2 L, Absolute Monocytes 1.0 H, Absolute Eosinophils 0, Absolute Basophils 0, Platelet Estimate ADEQUATE, Polychromasia 1+, Poikilocytosis 1+, Ovalocytes 1+, [place] Cells FEW, PUBS MCHC 33.4, Fld Total RBCs Counted 100 03/18/16 0015: Lactic Acid 3.7 H 03/18/16 0015: Anion Gap 12, Estimated GFR > 60, Glucose 219 H, Calcium 8.3 L, Phosphorus 2.4 L, Magnesium 1.7, Total Bilirubin 0.8, AST 26, ALT 36, Albumin 3.3 L, CBC w Diff MAN DIFF ORDERED, RBC 3.82 L, MCV 85.0, MCH 29.1, RDW 13.7, MPV 9.4, Gran % 93.1 H, Lymphocytes % 3.1 L, Monocytes % 3.8, Eosinophils % 0, Basophils % 0 L, Absolute Granulocytes 19.1 H, Segmented Neutrophils 70, Band Neutrophils 17 H, Absolute Lymphocytes 0.6 L, Lymphocytes 2 L, Monocytes 9, Absolute Monocytes 0.8 H, Absolute Eosinophils 0, Absolute Basophils 0, Metamyelocytes 2 H, Platelet Estimate ADEQUATE, Normochromic RBCs VERIFIED, Ovalocytes FEW, PUBS MCHC 34.3, Fld Total RBCs Counted 100 03/17/161952: Lactic Acid Cancelled 03/17/161856: Anion Gap 15, Estimated GFR > 60, Glucose 217 H, Lactic Acid 5.2 H, Calcium 8.0 L, Phosphorus 2.5, Magnesium 1.0 L, Total Bilirubin 0.6, AST 23, ALT 29, Albumin 3.2 L, CBC w Diff MAN DIFF ORDERED, RBC 3.93 L, MCV 87.5, MCH 29.1, RDW 13.5, MPV 9.8, Gran % 92.3 H, Lymphocytes % 3.2 L, Monocytes % 4.3, Eosinophils % 0, Basophils % 0.2, Absolute Granulocytes 19.6 H, Segmented Neutrophils 68, Band Neutrophils 25 H, Absolute Lymphocytes 0.7 L, Lymphocytes 4 L, Monocytes 3, Absolute Monocytes 0.9 H, Absolute Eosinophils 0, Absolute Basophils 0.1, Platelet Estimate VERIFIED BY SMEAR, Normocytic RBCs VERIFIED, Normochromic RBCs VERIFIED, PUBS MCHC 33.3, Fld Total RBCs Counted 100 03/17/16 1845: pH 7.36, pCO2 29 L, pO2 193 H, HCO3 16 L, ABG O2 Sat (Measured) 99.0, P-50 ( Temp Corrected) N, Carboxyhemoglobin 0.3 L, O2 Concentration % 100%, Temperature 96.6 L, O2 Delivery Method NRB, Phlebotomy Draw Site RIGHT RADIAL 03/17/16 1550: CSF Glucose < 20 L, CSF Total Protein > 600 H 03/17/16 1550: Lymphocytes 1, % Normal PMNs 97, CSF WBC 58522 *H, CSF RBC 611 H, CSF Comment 03/17/16 1410: Lactic Acid 9.3 H 03/17/16 1345: pH 7.36, pCO2 24 L, pO2 106 H, HCO3 13 L, ABG O2 Sat (Measured) 97.0, Carboxyhemoglobin 0.1 L, O2 Concentration % 2L, O2 Delivery Method NC, Phlebotomy Draw Site RIGHT RADIAL 03/17/16 1058: Virus Culture Pending 03/17/16 1050: Anion Gap 25 H, Estimated GFR > 60, BUN/Creatinine Ratio 13.8, Glucose 315 H, Lactic Acid 8.8 H, Calcium 9.8, Magnesium 1.3 L, Total Bilirubin 1.4 H, AST 29, ALT 29, Alkaline Phosphatase 92, Creatine Kinase 80, Troponin I < 0.01, Total Protein 7.5, Albumin 4.3, Globulin 3.2, Albumin/Globulin Ratio 1.3, TSH 3.620, Prolactin 16.1, PT 17.2 H, INR 1.65 H, APTT 30, CBC w Diff MAN DIFF ORDERED, RBC 4.84, MCV 86.3, MCH 29.0, RDW 13.4, MPV 9.6, Gran % 93.5 H, Lymphocytes % 4.7 L, Monocytes % 1.6 L, Eosinophils % 0, Basophils % 0.2, Absolute Granulocytes 13.4 H, Segmented Neutrophils 70, Band Neutrophils 19 H, Absolute Lymphocytes 0.7 L, Lymphocytes 5 L, Monocytes 4, Absolute Monocytes 0.2, Absolute Eosinophils 0, Absolute Basophils 0, Metamyelocytes 2 H, Platelet Estimate ADEQUATE, Normocytic RBCs VERIFIED, Normochromic RBCs VERIFIED, PUBS MCHC 33.5, Acetone Level NEGATIVE 03/17/16 1045: Urinalysis LIGHT H, Urine Color YEL, Urine Clarity HAZY H, Urine pH 6.0, Ur Specific [place] 1.025, Urine Protein 100 H, Urine Ketones 40 H, Urine Nitrite NEG, Urine Bilirubin NEG, Urine Urobilinogen 0.2, Ur Leukocyte Esterase NEG, Ur Microscopic SEDIMENT EXAMINED, Urine RBC 3-5, Urine WBC RARE, Ur Epithelial Cells FEW, Urine Mucus RARE, Urine Hemoglobin SMALL H, Urine Glucose >=1000 H Last 24 Hrs of Micro Results: CSF and all BCs positive for GPCs/pneumococcus. Diagnostic Data CXR Findings: 1. Increasing patchy right basilar opacity may represent pneumonia. 2. Increasing perihilar opacities with small left pleural effusion. The appearance could also represent developing fluid overload. Continued follow-up. Impression/Plan Impression/Plan Impression/Plan: 1. Pneumococcal meningitis and sepsis. The patient has ongoing acute changes in mental status associated with agitation and delirium. 2. Respiratory failure related to aspiration with an increased right basilar opacity thought to represent pneumonia. The patient also has evidence of volume overload likely related to fluid resuscitation. 3. Improving lactic acidosis. 4. Recommendations: * Restart BiPAP. * Give Lasix 20 mg IV 1 now. * Low threshold for intubation if the patient's respiratory status deteriorates. * Check an echocardiogram for evaluation of EF. * Please request a cardiology consult. * Antibiotics as per ID - will narrow as recommended. * Will continue to follow up cultures as per ID. * Continue Decadron IV. * NPO, maintain the patient on strict aspiration precautions. * Continue as needed Ativan, however avoid oversedation. * Alps for DVT prophylaxis. No subcutaneous heparin considering possible nondisplaced left temporal bone fracture. Will need to discuss this further with neurology. * Continue all current supportive care. The patient remains critically ill with the possibility of a poor prognosis. * The patient's family was updated at the bedside.
[2016-03-18 09:38] LABS: ABSOLUTE BASOPHIL COUNT 0 /CUMM (0.0-0.2); ABSOLUTE EOSINOPHIL COUNT 0 /CUMM (0.0-0.7); ABSOLUTE GRANULOCYTE CT 23.4 /CUMM (1.4-6.5); ABSOLUTE LYMPH COUNT 0.7 /CUMM (1.2-3.4); BASOPHIL % 0 % (0.0-2.0); EOSINOPHIL % 0 % (0-5); HEMATOCRIT 36.4 % (37-47); MEAN CORPUSCULAR HGB 28.8 PG (27.0-31.0); MEAN CORPUSCULAR HGB CONC 32.8 G/DL (33.0-37.0); MEAN CORPUSCULAR VOLUME 87.6 FL (81.0-99.0); MEAN PLATELET VOLUME 9.6 FL (7.4-10.4); PLATELET COUNT 197 /CUMM (130-400); RBC DISTRIBUTION WIDTH 13.7 % (11.5-14.5); RED BLOOD CELL CT 4.15 /CUMM (4.20-5.40); WHITE BLOOD CELL COUNT 25.2 /CUMM (4.8-10.8)
--- NOTE | 2016-03-18 10:27 | PN- Infect Dx ---
Subjective Subjective: Afebrile on steroids. She was placed on BiPAP last evening, was changed to a nasal cannula overnight, but was placed back on the BiPAP this morning. Objective Last 24 Hrs of Vital Signs/I&O Vital Signs Date Time Temp Pulse Resp B/P Pulse O2 O2 Flow FiO2 Ox Delivery Rate 03/18 0800 96.8 111 26 152/84 96 BIPAP 50% 03/18 0745 111 95 03/18 0400 94 Nasal 3.0L Cannula 03/18 0000 97.4 108 28 132/84 96 Nasal 3.0L Cannula 03/18 0000 97 Nasal 3.0L Cannula 03/17 2223 104 98 03/17 2000 98 BIPAP 40% 03/17 1941 106 98 03/17 1835 98 Non 100% ReBreather 03/17 1729 99 Non 100% ReBreather 03/17 1727 97.3 103 22 163/86 99 Non 100% ReBreather 03/17 1640 98.8 79 46 113/69 98 Nasal 5.0L Cannula 03/17 1620 90 38 135/75 98 Nasal 5.0L Cannula 03/17 1435 88 32 155/80 98 Nasal 2.0L Cannula 03/17 1401 90 20 159/90 99 Nasal 2.0L Cannula 03/17 1317 97.8 03/17 1311 98 Nasal Cannula 03/17 1254 97.8 87 20 160/97 98 Nasal 2.0L Cannula 03/17 1158 82 20 165/93 99 Nasal 2.0L Cannula 03/17 1131 102.0 03/17 1131 102.0 112 42 203/95 03/17 1128 92 40 173/98 97 Nasal 2.0L Cannula 03/17 1121 112 42 203/95 97 Nasal 2.0L Cannula 03/17 1108 98 Nasal 2.0L Cannula 03/17 1108 115 24 190/91 98 Nasal 2.0L Cannula Intake & Output 03/18 1600 03/18 0800 03/18 0000 Intake Total 1321 801 Output Total 1150 750 Balance 171 51 Intake, IV 1321 801 Number 2 1 Bowel Movements Output, Urine 1150 750 Physical Exam Other Physical Findings: She is responsive only to pain, with grimacing and groaning. Neck resistant to flexion Lungs scattered rhonchi bilaterally Heart regular rhythm with no murmur Abdomen soft, with no obvious tenderness, positive bowel sounds Extremities no cyanosis, clubbing or edema Neuro moves all extremities Dominguez catheter is in place Results Last 24 Hours of Lab Results: Laboratory Tests 03/18 03/18 0900 0440 Chemistry Sodium (137 - 145 mmol/L) Pending 139 Potassium (3.5 - 5.1 mmol/L) Pending 4.5 Chloride (98 - 107 mmol/L) Pending 110 H Carbon Dioxide (22 - 30 mmol/L) Pending 19 L Anion Gap (5 - 16) Pending 11 BUN (7 - 17 mg/dL) Pending 8 Creatinine (0.5 - 1.0 mg/dL) Pending 0.5 Estimated GFR (>60 ml/min) > 60 Glucose (65 - 99 mg/dL) Pending 218 H Lactic Acid (0.7 - 2.1 mmol/L) Pending 2.8 H Calcium (8.4 - 10.2 mg/dL) Pending 8.2 L Phosphorus (2.5 - 4.5 mg/dL) Pending 2.5 Magnesium (1.6 - 2.3 mg/dL) Pending 2.0 Total Bilirubin (0.2 - 1.3 mg/dL) Pending 0.6 AST (14 - 36 U/L) Pending 32 ALT (9 - 52 U/L) Pending 40 Albumin (3.5 - 5.0 g/dL) Pending 3.4 L Hematology CBC w Diff MAN DIFF ORDERED MAN DIFF ORDERED WBC (4.8 - 10.8 /CUMM) 25.2 H 24.0 H RBC (4.20 - 5.40 /CUMM) 4.15 L 3.88 L Hgb (12.0 - 16.0 G/DL) 11.9 L 11.4 L Hct (37 - 47 %) 36.4 L 34.1 L MCV (81.0 - 99.0 FL) 87.6 87.9 MCH (27.0 - 31.0 PG) 28.8 29.4 RDW (11.5 - 14.5 %) 13.7 13.5 Plt Count (130 - 400 /CUMM) 197 185 MPV (7.4 - 10.4 FL) 9.6 9.5 Gran % (42.2 - 75.2 %) 93.0 H 92.5 H Lymphocytes % (20.5 - 51.1 %) 2.9 L 3.4 L Monocytes % (1.7 - 9.3 %) 4.1 4.1 Eosinophils % (0 - 5 %) 0 0 Basophils % (0.0 - 2.0 %) 0 L 0 L Absolute Granulocytes (1.4 - 6.5 /CUMM) 23.4 H 22.2 H Segmented Neutrophils (42.2 - 75.2 %) 71 71 Band Neutrophils (0.0 - 5.0 %) 22 H 27 H Absolute Lymphocytes (1.2 - 3.4 /CUMM) 0.7 L 0.8 L Lymphocytes (20.5 - 51.1 %) 1 L 2 L Monocytes (1.7 - 9.3 %) 3 Absolute Monocytes (0.10 - 0.60 /CUMM) 1.0 H 1.0 H Absolute Eosinophils (0.0 - 0.7 /CUMM) 0 0 Absolute Basophils (0.0 - 0.2 /CUMM) 0 0 Metamyelocytes (0.0 - 1.0 %) 3 H Platelet Estimate (ADEQUATE) ADEQUATE ADEQUATE Normocytic RBCs VERIFIED Normochromic RBCs VERIFIED Polychromasia 1+ Poikilocytosis 1+ Ovalocytes 1+ [place] Cells FEW PUBS MCHC (33.0 - 37.0 G/DL) 32.8 L 33.4 Other Body Source Fld Total RBCs Counted (%) 100 03/18 03/18 03/17 0015 0015 1952 Chemistry Sodium (137 - 145 mmol/L) 138 Potassium (3.5 - 5.1 mmol/L) 4.3 Chloride (98 - 107 mmol/L) 109 H Carbon Dioxide (22 - 30 mmol/L) 17 L Anion Gap (5 - 16) 12 BUN (7 - 17 mg/dL) 8 Creatinine (0.5 - 1.0 mg/dL) 0.5 Estimated GFR (>60 ml/min) > 60 Glucose (65 - 99 mg/dL) 219 H Lactic Acid (0.7 - 2.1 mmol/L) 3.7 H Cancelled Calcium (8.4 - 10.2 mg/dL) 8.3 L Phosphorus (2.5 - 4.5 mg/dL) 2.4 L Magnesium (1.6 - 2.3 mg/dL) 1.7 Total Bilirubin (0.2 - 1.3 mg/dL) 0.8 AST (14 - 36 U/L) 26 ALT (9 - 52 U/L) 36 Albumin (3.5 - 5.0 g/dL) 3.3 L Hematology CBC w Diff MAN DIFF ORDERED WBC (4.8 - 10.8 /CUMM) 20.5 H RBC (4.20 - 5.40 /CUMM) 3.82 L Hgb (12.0 - 16.0 G/DL) 11.1 L Hct (37 - 47 %) 32.4 L MCV (81.0 - 99.0 FL) 85.0 MCH (27.0 - 31.0 PG) 29.1 RDW (11.5 - 14.5 %) 13.7 Plt Count (130 - 400 /CUMM) 199 MPV (7.4 - 10.4 FL) 9.4 Gran % (42.2 - 75.2 %) 93.1 H Lymphocytes % (20.5 - 51.1 %) 3.1 L Monocytes % (1.7 - 9.3 %) 3.8 Eosinophils % (0 - 5 %) 0 Basophils % (0.0 - 2.0 %) 0 L Absolute Granulocytes (1.4 - 6.5 /CUMM) 19.1 H Segmented Neutrophils (42.2 - 75.2 %) 70 Band Neutrophils (0.0 - 5.0 %) 17 H Absolute Lymphocytes (1.2 - 3.4 /CUMM) 0.6 L Lymphocytes (20.5 - 51.1 %) 2 L Monocytes (1.7 - 9.3 %) 9 Absolute Monocytes (0.10 - 0.60 /CUMM) 0.8 H Absolute Eosinophils (0.0 - 0.7 /CUMM) 0 Absolute Basophils (0.0 - 0.2 /CUMM) 0 Metamyelocytes (0.0 - 1.0 %) 2 H Platelet Estimate (ADEQUATE) ADEQUATE Normochromic RBCs VERIFIED Ovalocytes FEW PUBS MCHC (33.0 - 37.0 G/DL) 34.3 Other Body Source Fld Total RBCs Counted (%) 100 03/17 03/17 4084 4497 Blood Gas pH (7.35 - 7.45 PH) 7.36 pCO2 (35 - 45 TORR) 29 L pO2 (80 - 100 TORR) 193 H HCO3 (21 - 28 MEQ/L) 16 L ABG O2 Sat (Measured) (>96.0 %) 99.0 P-50 (Temp Corrected) N Carboxyhemoglobin (1.5 - 5.0 %) 0.3 L O2 Concentration % 100% Temperature (97.0 - 100.0 FARH) 96.6 L O2 Delivery Method NRB Chemistry Sodium (137 - 145 mmol/L) 139 Potassium (3.5 - 5.1 mmol/L) 3.2 L Chloride (98 - 107 mmol/L) 107 Carbon Dioxide (22 - 30 mmol/L) 18 L Anion Gap (5 - 16) 15 BUN (7 - 17 mg/dL) 9 Creatinine (0.5 - 1.0 mg/dL) 0.6 Estimated GFR (>60 ml/min) > 60 Glucose (65 - 99 mg/dL) 217 H Lactic Acid (0.7 - 2.1 mmol/L) 5.2 H Calcium (8.4 - 10.2 mg/dL) 8.0 L Phosphorus (2.5 - 4.5 mg/dL) 2.5 Magnesium (1.6 - 2.3 mg/dL) 1.0 L Total Bilirubin (0.2 - 1.3 mg/dL) 0.6 AST (14 - 36 U/L) 23 ALT (9 - 52 U/L) 29 Albumin (3.5 - 5.0 g/dL) 3.2 L Hematology CBC w Diff MAN DIFF ORDERED WBC (4.8 - 10.8 /CUMM) 21.2 H RBC (4.20 - 5.40 /CUMM) 3.93 L Hgb (12.0 - 16.0 G/DL) 11.5 L Hct (37 - 47 %) 34.4 L MCV (81.0 - 99.0 FL) 87.5 MCH (27.0 - 31.0 PG) 29.1 RDW (11.5 - 14.5 %) 13.5 Plt Count (130 - 400 /CUMM) 203 MPV (7.4 - 10.4 FL) 9.8 Gran % (42.2 - 75.2 %) 92.3 H Lymphocytes % (20.5 - 51.1 %) 3.2 L Monocytes % (1.7 - 9.3 %) 4.3 Eosinophils % (0 - 5 %) 0 Basophils % (0.0 - 2.0 %) 0.2 Absolute Granulocytes (1.4 - 6.5 /CUMM) 19.6 H Segmented Neutrophils (42.2 - 75.2 %) 68 Band Neutrophils (0.0 - 5.0 %) 25 H Absolute Lymphocytes (1.2 - 3.4 /CUMM) 0.7 L Lymphocytes (20.5 - 51.1 %) 4 L Monocytes (1.7 - 9.3 %) 3 Absolute Monocytes (0.10 - 0.60 /CUMM) 0.9 H Absolute Eosinophils (0.0 - 0.7 /CUMM) 0 Absolute Basophils (0.0 - 0.2 /CUMM) 0.1 Platelet Estimate (ADEQUATE) VERIFIED BY SMEAR Normocytic RBCs VERIFIED Normochromic RBCs VERIFIED PUBS MCHC (33.0 - 37.0 G/DL) 33.3 Miscellaneous Phlebotomy Draw Site RIGHT RADIAL Other Body Source Fld Total RBCs Counted (%) 100 03/17 03/17 03/17 03/17 1550 1550 1410 1345 Blood Gas pH (7.35 - 7.45 PH) 7.36 pCO2 (35 - 45 TORR) 24 L pO2 (80 - 100 TORR) 106 H HCO3 (21 - 28 MEQ/L) 13 L ABG O2 Sat (Measured) (>96.0 %) 97.0 Carboxyhemoglobin (1.5 - 5.0 %) 0.1 L O2 Concentration % 2L O2 Delivery Method NC Chemistry Lactic Acid (0.7 - 2.1 mmol/L) 9.3 H Hematology Lymphocytes (%) 1 % Normal PMNs (%) 97 Miscellaneous Phlebotomy Draw Site RIGHT RADIAL Other Body Source CSF WBC (0 - 5 /CUMM) 04870 *H CSF RBC (-0 /CUMM) 611 H CSF Comment CSF Glucose (40 - 70 mg/dL) < 20 L CSF Total Protein (12 - 60 mg/dL) > 600 H 03/17 03/17 1058 1050 Chemistry Sodium (137 - 145 mmol/L) 141 Potassium (3.5 - 5.1 mmol/L) 3.3 L Chloride (98 - 107 mmol/L) 99 Carbon Dioxide (22 - 30 mmol/L) 17 L Anion Gap (5 - 16) 25 H BUN (7 - 17 mg/dL) 11 Creatinine (0.5 - 1.0 mg/dL) 0.8 Estimated GFR (>60 ml/min) > 60 BUN/Creatinine Ratio (7 - 25 %) 13.8 Glucose (65 - 99 mg/dL) 315 H Lactic Acid (0.7 - 2.1 mmol/L) 8.8 H Calcium (8.4 - 10.2 mg/dL) 9.8 Magnesium (1.6 - 2.3 mg/dL) 1.3 L Total Bilirubin (0.2 - 1.3 mg/dL) 1.4 H AST (14 - 36 U/L) 29 ALT (9 - 52 U/L) 29 Alkaline Phosphatase (<127 U/L) 92 Creatine Kinase (30 - 135 U/L) 80 Troponin I (< 0.11 ng/ml) < 0.01 Total Protein (6.3 - 8.2 g/dL) 7.5 Albumin (3.5 - 5.0 g/dL) 4.3 Globulin (1.9 - 4.2 gm/dL) 3.2 Albumin/Globulin Ratio (1.1 - 2.2 %) 1.3 TSH (0.270 - 4.200 uIU/mL) 3.620 Prolactin (3.0 - 18.6 ng/mL) 16.1 Coagulation PT (9.4 - 12.5 SEC) 17.2 H INR (0.90 - 1.19) 1.65 H APTT (25 - 37 SEC) 30 Hematology CBC w Diff MAN DIFF ORDERED WBC (4.8 - 10.8 /CUMM) 14.3 H RBC (4.20 - 5.40 /CUMM) 4.84 Hgb (12.0 - 16.0 G/DL) 14.0 Hct (37 - 47 %) 41.8 MCV (81.0 - 99.0 FL) 86.3 MCH (27.0 - 31.0 PG) 29.0 RDW (11.5 - 14.5 %) 13.4 Plt Count (130 - 400 /CUMM) 244 MPV (7.4 - 10.4 FL) 9.6 Gran % (42.2 - 75.2 %) 93.5 H Lymphocytes % (20.5 - 51.1 %) 4.7 L Monocytes % (1.7 - 9.3 %) 1.6 L Eosinophils % (0 - 5 %) 0 Basophils % (0.0 - 2.0 %) 0.2 Absolute Granulocytes (1.4 - 6.5 /CUMM) 13.4 H Segmented Neutrophils (42.2 - 75.2 %) 70 Band Neutrophils (0.0 - 5.0 %) 19 H Absolute Lymphocytes (1.2 - 3.4 /CUMM) 0.7 L Lymphocytes (20.5 - 51.1 %) 5 L Monocytes (1.7 - 9.3 %) 4 Absolute Monocytes (0.10 - 0.60 /CUMM) 0.2 Absolute Eosinophils (0.0 - 0.7 /CUMM) 0 Absolute Basophils (0.0 - 0.2 /CUMM) 0 Metamyelocytes (0.0 - 1.0 %) 2 H Platelet Estimate (ADEQUATE) ADEQUATE Normocytic RBCs VERIFIED Normochromic RBCs VERIFIED PUBS MCHC (33.0 - 37.0 G/DL) 33.5 Serology Virus Culture Pending Toxicology Acetone Level (NEGATIVE) NEGATIVE 03/17 1045 Urines Urinalysis LIGHT H Urine Color (YEL,AMB,STR) YEL Urine Clarity (CLEAR) HAZY H Urine pH (5.0 - 8.0) 6.0 Ur Specific [place] (1.001 - 1.035) 1.025 Urine Protein (NEG,<30 MG/DL) 100 H Urine Ketones (NEG) 40 H Urine Nitrite (NEG) NEG Urine Bilirubin (NEG) NEG Urine Urobilinogen (0.1 - 1.0 EU/dl) 0.2 Ur Leukocyte Esterase (NEG) NEG Ur Microscopic SEDIMENT EXAMINED Urine RBC (0 - 5 /HPF) 3-5 Urine WBC (0 - 2 /HPF) RARE Ur Epithelial Cells (NONE,FEW) FEW Urine Mucus (FEW,NONE) RARE Urine Hemoglobin (NEG) SMALL H Urine Glucose (N MG/DL) >=1000 H Last 24 Hours of [place] Results: Blood cultures March 17 positive for gram-positive cocci in pairs CSF culture March 17 positive for strep pneumoniae Urine culture March 17 negative Rapid flu swab March 17 negative Recent Imaging Studies: Chest x-ray March 18, personally reviewed, reveals increasing patchy right basilar opacity with increasing perihilar opacities and a small left pleural effusion Assessment/Plan Impression: Pneumococcal meningitis/sepsis likely secondary to otitis, with evidence on CT scan of destruction of the petrous portion of the left temporal bone, with air in the left temporal lobe. She is afebrile on steroids, begun prior to antibiotics, given the data on reduced mortality and complications of meningitis , particularly when it is secondary to strep pneumoniae. She is currently on Vancomycin, Ceftriaxone and Ampicillin, and this regimen will be able to be adjusted based on her final cultures. She apparently vomited at the time of her lumbar puncture, raising concern for aspiration, and her chest x-ray does reveal a patchy right lower lobe density in addition to bilateral perihilar opacities, which are suggestive of possible fluid overload. Suggestion: 1. Follow-up final CSF and blood cultures 2. Continue Decadron 0.15 mg/kg every 6 hours for 4 days 3. Discontinue Droplet precautions 4. Discontinue Ampicillin 5. Increase Vancomycin to 1 g IV every 12 hours 6. Continue Ceftriaxone
--- NOTE | 2016-03-18 10:57 | ECHOCARDIOGRAM REPORT ---
ANA SOLOMON Age: 70 : 1945 Gender: F Exam Date: 03/18/2016 09:57 Exam Location: [facility] Ht (in): 64 Wt (lb): 187 BSA: 1.99 BP: 142 / 104 Ordering Physician: KAILA GRAJEDA MD Referring Physician: KAILA GRAJEDA MD Technologist: Hasmukh Espinoza [facility] Room Number: 112 Indications: Hypertension Rhythm: Sinus Technical Quality: Fair FINDINGS Left Ventricle Normal size left ventricle. No obvious regional wall motion abnormalities. Normal left ventricular ejection fraction estimated at 60-65%. Right Ventricle Right ventricle not well visualized, grossly normal. Right Atrium Normal right atrial size. Left Atrium Mild to moderate left atrial dilatation. Mitral Valve Moderate thickening/calcification of the anterior mitral valve leaflet. Severe mitral annular calcification. Mild mitral stenosis. Mild mitral regurgitation. Aortic Valve Trileaflet aortic valve. Diffuse thickening (sclerosis) of the aortic valve cusps without reduced excursion. No aortic stenosis. No aortic regurgitation. Tricuspid Valve Tricuspid valve not well visualized, grossly normal. Mild tricuspid regurgitation. Right ventricular systolic pressure estimated at 34 mmHg. Pulmonic Valve Pulmonic valve not well visualized, grossly normal. Pericardium No pericardial effusion. Great Vessels Aortic root and proximal ascending aorta not well visualized, grossly normal. CONCLUSIONS 1. Mild aortic sclerosis is present with no valvular stenosis or insufficiency. 2. Significant thickening and calcification of the mitral leaflets is present with moderate to severe anular calcification and mild mitral stenosis and insufficiency with mild to moderate left atrial enlargement. 3. There is no significant pericardial fluid present. 4. The left ventricular chamber size and systolic funtion appear normal with no obvious resting wall motion abnormalities. 5. The right heart structures are grossly normal. Mild tricuspid insufficiency is present with no evidence of pulmonary hypertension. Donny Patton M.D. (Electronically Signed) Final Date: 18 March 2016 10:56 MEASUREMENTS (Male / Female) Normal Values 2D ECHO LV Diastolic Diameter PLAX 3.3 cm 4.2 - 5.9 / 3.9 - 5.3 cm LV Systolic Diameter PLAX 2.2 cm 2.1 - 4.0 cm LV Fractional Shortening PLAX 33.3 % 25 - 46 % LV Ejection Fraction 2D Teich 63.3 % IVS Diastolic Thickness 1.0 cm LVPW Diastolic Thickness 1.1 cm LV Relative Wall Thickness 0.6 RV Internal Dim ED PLAX 2.9 cm 1.9 - 3.8 cm LVOT Diameter 1.8 cm Aortic Root Diameter 2.7 cm LA Systolic Diameter LX 4.0 cm 3.0 - 4.0 / 2.7 - 3.8 cm Ascending Aorta Diameter 2.8 cm DOPPLER AV Peak Velocity 192.0 cm/s AV Peak Gradient 14.7 mmHg AV Mean Velocity 132.0 cm/s AV Mean Gradient 8.0 mmHg AV Velocity Time Integral 39.6 cm LVOT Peak Velocity 161.0 cm/s LVOT Peak Gradient 10.4 mmHg LVOT Mean Velocity 105.0 cm/s LVOT Mean Gradient 5.0 mmHg LVOT Velocity Time Integral 35.4 cm LVOT Stroke Volume 90.1 cm AV Area Cont Eq vti 2.3 cm AV Area Cont Eq pk 2.1 cm MV Peak Velocity 190.0 cm/s MV Peak Gradient 14.4 mmHg MV Mean Velocity 113.0 cm/s MV Mean Gradient 6.0 mmHg Mitral E Point Velocity 123.0 cm/s Mitral A Point Velocity 184.0 cm/s Mitral E to A Ratio 0.7 MV PHT Velocity 139.0 cm/s MV Deceleration [place] 407.0 cm/s MV Pressure Half Time 102.5 ms MV Area PHT 2.1 cm MV Deceleration Time 324.0 ms MR Peak Velocity 547.0 cm/s MR Peak Gradient 119.7 mmHg TR Peak Velocity 295.0 cm/s TR Peak Gradient 34.8 mmHg Right Atrial Pressure 5.0 mmHg Pulmonary Artery Systolic Pressu 39.8 mmHg Right Ventricular Systolic Press 39.8 mmHg PV Peak Velocity 93.7 cm/s PV Peak Gradient 3.5 mmHg PV Mean Velocity 61.6 cm/s PV Mean Gradient 2.0 mmHg PV Velocity Time Integral 19.3 cm LV E' Lateral Velocity 4.2 cm/s Mitral E to LV E' Lateral Ratio 29.4 LV E' Septal Velocity 4.9 cm/s Mitral E to LV E' Septal Ratio 25.3
--- NOTE | 2016-03-18 10:58 | NUR ---
Patient is lethargic but restless- only arousable to tactile stimuli. She can move all extremities but not to command. Soft wrist and ankle restraints in place and a 1:1 sitter is at the bedside. Pupils approx 4mm and sluggish. NSR-ST on tele monitor. HR= 80-110's. SBP: 130-170's. + pulses. ECHO completed and results are pending. She was palced on 50% bipap at approx 0745 this morning. She was found to be tachypneic with an O2 sat ranging from 87-89% on 3L nc on initial assessment this morning at approx 0730. At this time she is satting 95-98% on bi-pap and appears much more comfortable- respiratory rate 24-26. Lungs wheezey and diminished at the bases. Scant clear thin secretions noted orally and pt was suctioned. Abdomen is soft and non tender with + bowel sounds. Dominguez in place draining clear yellow urine- IV lasix given per order. Skin appears intact with no areas of pressure injury noted. NS w/ 40meq kcl infusing at 75mls/hr. Dr. Cleveland in to see patient and stated that patient can be on standard precautions. Repeat labs drawn. Dr. Blank in to speak with family and POC discussed. Vitals currently stable and pt is resting comfortably in bed- no s/s of pain are currently noted. Will continue to closely monitor patient.
--- NOTE | 2016-03-18 14:34 | PN- Resident CRCU ---
Subjective HPI/CRCU Issues: She is in ICU for: bacterial meningitis, possible aspiration pna, possible mastoiditis She was less agitated this AM still AOX0 and in bilat wrist restriants. Family at bedside endorse that she seems calmer. She had some respiratory difficulty on NC and was given one dose of lasix and switched to bipap. She is breathing much better. She has remained afebrile with HR around 92-108, with RR 37-60, bp 143- 160/69-103. Objective Vital Signs & I&O Last 8 Hrs of Vitals and I&O: Intake & Output 03/18 1600 Intake Total Output Total Balance Patient 84.567 kg Weight Exam General Appearance: sedated, lethargic, mild distress Head: atraumatic, normal appearance Ears, Nose, Throat: normal pharynx, abnormal Typanic (L) Neck: limited range of motion Respiratory: chest non-tender, lungs clear, accessory muscle use Cardiovascular: tachycardia Gastrointestinal: normal bowel sounds, soft, non-tender Extremities: no edema Dominguez Site: NORMAL IV (Peripheral) Site: CLEAN SITE WITH NO ERYTHEMA IV Drips IV Drips: ROCEPHIN, VANCO, AMPICILLIN, DECADRON Nutrition Nutrition: NPO Current Medications: Current Medications Sig/Garrick Start time Last Medication Dose Route Stop Time Status Admin Acetaminophen 1,000 MG Q6P PRN 03/17 1945 DC N/A 1 UNIT IV Acetaminophen 1,000 MG Q6-PRN PRN 03/17 1630 AC 03/19 N/A 1 UNIT IV 0729 Ceftriaxone Sodium 2,000 MG Q12H 03/17 1515 AC 03/19 IV 0320 Dexamethasone 13 MG Q6H 03/18 0000 AC 03/19 Dextrose/Water 50 ML IV 0633 Insulin Human Regular 0 Q6 03/17 1800 AC 03/19 SC 0641 Levothyroxine Sodium 12.5 MCG DAILY 03/19 1000 03/19 IV 0958 Levothyroxine Sodium 12.5 MCG DAILY AC 03/18 0700 DC 03/18 IV 0824 Lorazepam 1 MG Q2 HRS NEEDED PRN 03/17 2100 03/18 IV 0639 Morphine Sulfate 2 MG ONCE ONE 03/18 2200 DC 03/18 IV 03/18 220 220 Pantoprazole Sodium 40 MG DAILY 03/18 1000 AC 03/19 IV 0956 Sodium Chloride 1,000 ML Q13H 03/18 1200 AC 03/19 IV 0137 Sodium Phosphate 15 mMol ONE ONE 03/18 1915 DC 03/18 Sodium Chloride 250 ML IV 03/188 2023 Vancomycin HCl 1,000 MG Q12 03/18 1030 DC 03/19 Dextrose/Water 250 ML IV 0953 Impression/Plan Impression/Problem List Impression: This is a 70 year old female with PMH of hypotension, hyperlipidemia, hypothyroidism DM who came was brought to hospital after being found unresponsive. She had one day of otalgia and difficulty hearing and in ED was found to have Tmax 102, AMS/agitation, CT with pneumocephalus in temporal lobe, and opacification of mastoid air cells. Due to concern for bacterial meningitis 2/2 otitis she was admitted to ICU. PLAN Respiratory: She was noted to be severely tachypneic and grunting on NC this AM. Put on bipap seems much more comfortable. Satting well, RR improved. Of note, during fluoro-guided LP by IR pt had an episode of emesis and likely aspirated. CXR seems to show corresponding suspicious opacity. Treating for aspiration PNA. * Con't bipap * TRC nebs * Low threshold to intubate Neuro/ID: Patient's CSF shows 20,500 white blood cell, 611 red blood cell, less than 20 glucose, total protein over 600. Her blood cultures 2 grew gram- positive cocci, CSF culture grew gram-positive cocci. CSF Gram stain showing gram-positive cocci. CSF rapid strep is positive. Organism likely is streptococcus; unsurprising since most likely source is her otitis. Initially, pt was placed on droplet precautions as there is concern for Neisseria, however now that 24 hours of past and patient is growing gram-positive cocci, will discontinue droplet precautions. Additionally, treating for aspiration PNA; see respiratory for full details. Pt AOX0; obtunded cannot respond to commands. Was given ativan for agitation. * Follow-up final CSF and blood cultures * Continue Decadron 0.15 mg/kg every 6 hours for 4 days. This is day 2. * Patient was empirically started on vancomycin, ceftriaxone, and ampicillin. We will discontinue ampicillin and increase vancomycin to 1 g IV every 12. CVS: Patient has history of diabetes, hypertension. Her blood pressures are between 143 and 160. We will continue to monitor and keep within normal limits. Heme/Onc: Pt has H/H at 11.4/34. Stable. Will con't monitor. Msk: moving all extremeties spontaneously. Stable. Will Con't monitor. GI: Pt currently NPO; has fluids running. Endo: Problem List: 1. Meningitis 2. Sepsis 3. Left otitis media 4. Altered mental state 5. Lactic acidosis Pain Ratin Pain Location: none Tomorrow's Labs & Rationales: icu cbc Plan DVT/Prophylaxis: pharmacological
[2016-03-18 16:00] VITALS: BP 134/57
[2016-03-18 17:59] LABS: ABSOLUTE BASOPHIL COUNT 0 /CUMM (0.0-0.2); ABSOLUTE EOSINOPHIL COUNT 0 /CUMM (0.0-0.7); ABSOLUTE MONOCYTE COUNT 1.3 /CUMM (0.10-0.60); BASOPHIL % 0 % (0.0-2.0); EOSINOPHIL % 0 % (0-5); GRANULOCYTE % 90.9 % (42.2-75.2); HEMATOCRIT 32.3 % (37-47); MEAN CORPUSCULAR HGB CONC 33.2 G/DL (33.0-37.0); MEAN CORPUSCULAR VOLUME 87.3 FL (81.0-99.0); MEAN PLATELET VOLUME 9.4 FL (7.4-10.4); PLATELET COUNT 211 /CUMM (130-400); RBC DISTRIBUTION WIDTH 14.2 % (11.5-14.5); WHITE BLOOD CELL COUNT 25.3 /CUMM (4.8-10.8)
[2016-03-19] VITALS: BP 120/64
--- NOTE | 2016-03-19 | NUR ---
PT DOES NOT FOLLOW COMMANDS. MOVES ALL EXTREMITIES SPONTANEOUSLY. MONITOR SINUS RHYTHM AT RATE OF 69.JF=243/64.NASAL O2 ON AT 3L. LUNG SOUNDS CLEAR.SAT=98%. TURNED ON R SIDE.BANDAID TO BACK DRY AND INTACT.SITTER AT BEDSIDE.SOFT RESTRAINTS X4.
[2016-03-19 05:15] LABS: ABSOLUTE BASOPHIL COUNT 0 /CUMM (0.0-0.2); ABSOLUTE EOSINOPHIL COUNT 0 /CUMM (0.0-0.7); ABSOLUTE GRANULOCYTE CT 22.9 /CUMM (1.4-6.5); ABSOLUTE MONOCYTE COUNT 1.1 /CUMM (0.10-0.60); BASOPHIL % 0.1 % (0.0-2.0); EOSINOPHIL % 0 % (0-5); GRANULOCYTE % 91.4 % (42.2-75.2); HEMATOCRIT 33.8 % (37-47); MEAN CORPUSCULAR HGB 28.8 PG (27.0-31.0); MEAN CORPUSCULAR HGB CONC 32.6 G/DL (33.0-37.0); MEAN CORPUSCULAR VOLUME 88.4 FL (81.0-99.0); MEAN PLATELET VOLUME 9.9 FL (7.4-10.4); PLATELET COUNT 222 /CUMM (130-400); RBC DISTRIBUTION WIDTH 13.9 % (11.5-14.5); RED BLOOD CELL CT 3.83 /CUMM (4.20-5.40)
[2016-03-19 08:00] VITALS: BP 160/90
--- NOTE | 2016-03-19 10:25 | PN- CRCU ---
Subjective HPI/Critical Care Issues: The patient remains agitated without following commands. She continues to move all extremities independently. There were no overnight events reported. Objective Current Medications: Current Medications Sig/Garrick Start time Last Medication Dose Route Stop Time Status Admin Acetaminophen 1,000 MG Q6P PRN 03/17 1945 DC N/A 1 UNIT IV Acetaminophen 1,000 MG Q6-PRN PRN 03/17 1630 AC 03/19 N/A 1 UNIT IV 0729 Ampicillin 2,000 MG Q4H 03/18 0300 DC 03/18 Sodium Chloride 100 ML IV 0639 Ceftriaxone Sodium 2,000 MG Q12H 03/17 1515 AC 03/19 IV 0320 Dexamethasone 13 MG Q6H 03/18 0000 AC 03/19 Dextrose/Water 50 ML IV 0633 Insulin Human Regular 0 Q6 03/17 1800 AC 03/19 SC 0641 Levothyroxine Sodium 12.5 MCG DAILY 03/19 1000 AC 03/19 IV 0958 Levothyroxine Sodium 12.5 MCG DAILY AC 03/18 0700 [place] 03/18 IV 0824 Lorazepam 1 MG Q2 HRS NEEDED PRN 03/17 2100 AC 03/18 IV 0639 Morphine Sulfate 2 MG ONCE ONE 03/18 2200 DC 03/18 IV 03/18 2201 2207 Pantoprazole Sodium 40 MG DAILY 03/18 1000 AC 03/19 IV 0956 Potassium Chloride 40 MEQ Q8H 03/18 1000 DC 03/18 Sodium Chloride 1,000 ML IV 1000 Sodium Chloride 1,000 ML Q13H 03/18 1200 AC 03/19 IV 0137 Sodium Phosphate 15 mMol ONE ONE 03/18 1915 [place] 03/18 Sodium Chloride 250 ML IV 03/18 2318 2024 Vancomycin HCl 1,000 MG 1900 03/18 1900 DC Dextrose/Water 250 ML IV Vancomycin HCl 1,000 MG Q12 03/18 1030 AC 03/19 Dextrose/Water 250 ML IV 0953 Vital Signs & I&O Last 24 Hrs of Vitals and I&O: Vital Signs Date Time Temp Pulse Resp B/P Pulse O2 O2 Flow FiO2 Ox Delivery Rate 03/19 0400 97 Nasal 3.0L Cannula 03/19 0020 81 98 03/19 0000 96.7 69 20 120/64 98 Nasal 3.0L Cannula 03/19 0000 98 Nasal 3.0L Cannula 03/18 2000 97 Nasal 3.0L Cannula 03/18 1615 90 99 01/24 1600 98 BIPAP 35% 03/18 1600 98.3 94 36 134/57 98 BIPAP 35% 03/18 1454 100 97 03/18 1234 94 99 03/18 1200 98 BIPAP 40% Intake & Output 03/19 1600 03/19 0800 03/19 0000 Intake Total 931 732 Output Total 492 540 Balance 439 192 Intake, IV 931 732 Output, Urine 492 540 Patient 185 lb Weight Exam General Appearance: sedated, lethargic, mild distress Head: atraumatic, normal appearance Ears, Nose, Throat: normal pharynx, abnormal Typanic (L) Neck: limited range of motion Respiratory: chest non-tender, lungs clear, accessory muscle use Cardiovascular: tachycardia Gastrointestinal: normal bowel sounds, soft, non-tender Extremities: no edema Impression/Plan Impression/Plan Impression/Plan: 1. Pneumococcal meningitis and sepsis. The patient has ongoing acute changes in mental status associated with agitation and delirium. 2. Respiratory failure related to aspiration with an increased right basilar opacity thought to represent pneumonia. 3. Resolved lactic acidosis. 4. Malnutrition. Recommendations: * Low threshold for intubation if the patient's respiratory status deteriorates. Monitor respiratory status closely. * Follow up cardiology recommendations. * Antibiotics as per ID. * Continue Decadron IV. * NPO, maintain the patient on strict aspiration precautions. * Continue as needed Ativan, however avoid oversedation. * Alps for DVT prophylaxis. No subcutaneous heparin considering possible nondisplaced left temporal bone fracture. Will need to discuss this further with neurology. * Continue all current supportive care. The patient remains critically ill with the possibility of a poor prognosis. * The patient's family was updated at the bedside.
--- NOTE | 2016-03-19 10:38 | PN- Infect Dx ---
Subjective Subjective: Afebrile on steroids. She has been opening her eyes but not following commands. Objective Last 24 Hrs of Vital Signs/I&O Vital Signs Date Time Temp Pulse Resp B/P Pulse O2 O2 Flow FiO2 Ox Delivery Rate 03/19 0400 97 Nasal 3.0L Cannula 03/19 0020 81 98 03/19 0000 96.7 69 20 120/64 98 Nasal 3.0L Cannula 03/19 0000 98 Nasal 3.0L Cannula 03/18 2000 97 Nasal 3.0L Cannula 03/18 1615 90 99 03/18 1600 98 BIPAP 35% 03/18 1600 98.3 94 36 134/57 98 BIPAP 35% 03/18 1454 100 97 03/18 1234 94 99 03/18 1200 98 BIPAP 40% Intake & Output 03/19 1600 03/19 0800 03/19 0000 Intake Total 931 732 Output Total 492 540 Balance 439 192 Intake, IV 931 732 Output, Urine 492 540 Patient 185 lb Weight Physical Exam Other Physical Findings: She is more responsive, at least to voice and pain, though nonverbal Neck is more supple Lungs scattered rhonchi bilaterally Heart regular rhythm with no murmur Extremities no cyanosis, clubbing or edema Neuro moving all extremities with no focality Dominguez catheter remains in place Results Last 24 Hours of Lab Results: Laboratory Tests 03/19 03/18 0430 1730 Chemistry Sodium (137 - 145 mmol/L) 143 139 Potassium (3.5 - 5.1 mmol/L) 4.3 4.2 Chloride (98 - 107 mmol/L) 111 H 108 H Carbon Dioxide (22 - 30 mmol/L) 23 21 L Anion Gap (5 - 16) 9 11 BUN (7 - 17 mg/dL) 19 H 14 Creatinine (0.5 - 1.0 mg/dL) 0.6 0.6 Estimated GFR (>60 ml/min) > 60 > 60 Glucose (65 - 99 mg/dL) 252 H 245 H Lactic Acid (0.7 - 2.1 mmol/L) 1.8 Calcium (8.4 - 10.2 mg/dL) 8.5 8.4 Phosphorus (2.5 - 4.5 mg/dL) 2.7 2.3 L Magnesium (1.6 - 2.3 mg/dL) 2.2 2.0 Total Bilirubin (0.2 - 1.3 mg/dL) 0.3 0.5 AST (14 - 36 U/L) 29 32 ALT (9 - 52 U/L) 32 38 Albumin (3.5 - 5.0 g/dL) 2.9 L 3.1 L Hematology CBC w Diff MAN DIFF ORDERED MAN DIFF ORDERED WBC (4.8 - 10.8 /CUMM) 25.0 H 25.3 H RBC (4.20 - 5.40 /CUMM) 3.83 L 3.70 L Hgb (12.0 - 16.0 G/DL) 11.0 L 10.7 L Hct (37 - 47 %) 33.8 L 32.3 L MCV (81.0 - 99.0 FL) 88.4 87.3 MCH (27.0 - 31.0 PG) 28.8 29.0 RDW (11.5 - 14.5 %) 13.9 14.2 Plt Count (130 - 400 /CUMM) 222 211 MPV (7.4 - 10.4 FL) 9.9 9.4 Gran % (42.2 - 75.2 %) 91.4 H 90.9 H Lymphocytes % (20.5 - 51.1 %) 4.1 L 3.8 L Monocytes % (1.7 - 9.3 %) 4.4 5.3 Eosinophils % (0 - 5 %) 0 0 Basophils % (0.0 - 2.0 %) 0.1 0 L Absolute Granulocytes (1.4 - 6.5 /CUMM) 22.9 H 23.0 H Segmented Neutrophils (42.2 - 75.2 %) 73 77 H Band Neutrophils (0.0 - 5.0 %) 13 H 9 H Absolute Lymphocytes (1.2 - 3.4 /CUMM) 1.0 L 1.0 L Lymphocytes (20.5 - 51.1 %) 11 L 6 L Monocytes (1.7 - 9.3 %) 3 4 Absolute Monocytes (0.10 - 0.60 /CUMM) 1.1 H 1.3 H Absolute Eosinophils (0.0 - 0.7 /CUMM) 0 0 Absolute Basophils (0.0 - 0.2 /CUMM) 0 0 Metamyelocytes (0.0 - 1.0 %) 3 H Myelocytes (0 - 0 %) 1 H Platelet Estimate (ADEQUATE) ADEQUATE ADEQUATE Normocytic RBCs VERIFIED Normochromic RBCs VERIFIED Polychromasia 1+ Ovalocytes FEW PUBS MCHC (33.0 - 37.0 G/DL) 32.6 L 33.2 Other Body Source Fld Total RBCs Counted (%) 100 Last 24 Hours of [place] Results: CSF culture March 17 positive for strep pneumoniae sensitive to Ceftriaxone and Vancomycin and resistant to Penicillin Blood cultures 2 March 17 positive for Strep pneumoniae Urine culture March 17 negative Assessment/Plan Impression: Pneumococcal meningitis/sepsis likely secondary to otitis media, with evidence on CT scan of destruction of the petrous portion of the left temporal bone and with air in the left temporal lobe. She remains afebrile on steroids, with persistent leukocytosis, though with decreased bands, possibly secondary to steroids. She is currently on Vancomycin and Ceftriaxone and this can be adjusted given her final CSF culture. Her recent chest x-ray does reveal a patchy right lower lobe density, possibly secondary to aspiration at the time of her LP, and this should be adequately covered with the Ceftriaxone. Suggestion: 1. Continue Decadron for a total of 4 days 2. Discontinue Vancomycin 3. Continue Ceftriaxone
--- NOTE | 2016-03-19 12:00 | NUR ---
Patient is lethargic- will occasionally open eyes to tactile stimuli. Extremely restless- moves all extremties but not to command. Pupils are 4mm and sluggish. 1:1 sitter at the bedside- restraints have been d/c since 0800. NSR-ST on tele monitor- HR= 60-110's. SBP: 130-60's, + pulses. On 3L nc, lungs clear and diminished at the bases with an occasional exp wheeze. Hx of sleep apnea. Scant amounts of clear thin oral secretions noted and she has been suctioned prn. Abdomen is soft and non tender with + bowel sounds. Remains NPO. Dominguez in place draining clear yellow urine. SKin is intact with no areas of pressure injury noted. She has been turned and repositioned frequently. NS infusing at 75mls/hr- on IV abx and decadron. Meicated with IV tylenol for pain. Vitals have been currently stable- Pts family at the bedside and updated on POC- frequently. Will continue to closely monitor patient.
--- NOTE | 2016-03-19 12:33 | PN- Resident CRCU ---
Subjective HPI/CRCU Issues: Saw patient at bedside this a.m. She was slightly more agitated than yesterday, moving all limbs spontaneously. She was able to flutter her eyelids open to tactile and verbal stimuli. She remains hemodynamically stable and afebrile, however on Decadron. Yesterday at 5 PM labs she had low phosphorus which was repleted and subsequently remained normal during this morning's measurement. Urine output dropped to 12 mL per hour transiently last night but self resolved to 30 mL/h soon thereafter. Objective Vital Signs & I&O Last 8 Hrs of Vitals and I&O: Intake & Output 03/19 1600 Intake Total Output Total Balance Patient 84.113 kg Weight Exam General Appearance: well developed/nourished, sedated, mild distress Head: atraumatic, normal appearance Ears, Nose, Throat: normal pharynx Neck: cannot assess Respiratory: normal breath sounds, chest non-tender, pt off bipap. on NC. satting well. Cardiovascular: regular rate/rhythm Gastrointestinal: soft, non-tender Extremities: normal inspection IV Drips IV Drips: decadron antibiotics including ceftraixone and vancomycin Nutrition Nutrition: NPO Current Medications: Current Medications Sig/Garrick Start time Last Medication Dose Route Stop Time Status Admin Acetaminophen 1,000 MG Q6P PRN 03/17 1945 DC N/A 1 UNIT IV Acetaminophen 1,000 MG Q6-PRN PRN 03/17 1630 AC 03/19 N/A 1 UNIT IV 0729 Ceftriaxone Sodium 2,000 MG Q12H 03/17 1515 AC 03/19 IV 0320 Dexamethasone 13 MG Q6H 03/18 0000 AC 03/19 Dextrose/Water 50 ML IV 1218 Insulin Human Regular 0 Q6 03/17 1800 AC 03/19 SC 1218 Levothyroxine Sodium 12.5 MCG DAILY 03/19 1000 AC 03/19 IV 0958 Levothyroxine Sodium 12.5 MCG DAILY AC 03/18 0700 DC 03/18 IV 0824 Lorazepam 1 MG Q2 HRS NEEDED PRN 03/17 2100 AC 03/18 IV 0639 Morphine Sulfate 2 MG ONCE ONE 03/180 DC 03/18 IV 03/18 220 220 Pantoprazole Sodium 40 MG DAILY 03/18 1000 AC 03/19 IV 0956 Sodium Chloride 1,000 ML Q13H 03/18 1200 AC 03/19 IV 0137 Sodium Phosphate 15 mMol ONE ONE 03/18 1915 DC 03/18 Sodium Chloride 250 ML IV 03/188 2023 Vancomycin HCl 1,000 MG Q12 03/18 1030 DC 03/19 Dextrose/Water 250 ML IV 0953 Impression/Plan Impression/Problem List Impression: This is a 70 year old female with PMH of hypotension, hyperlipidemia, hypothyroidism DM who came was brought to hospital after being found unresponsive. She had one day of otalgia and difficulty hearing. Found down and unresponsive, subsequently brought to . In ED was found to have Tmax 102, AMS/ agitation, CT with pneumocephalus in temporal lobe, and opacification of mastoid air cells. Due to concern for bacterial meningitis 2/2 otitis she was admitted to ICU. PLAN Respiratory: Pt requied BIPAP yesterday after desatting down to low 80's. Today on NC satting well. RR improved. Of note, during admission fluoro-guided LP by IR pt had an episode of emesis and likely aspirated. CXR seems to show corresponding suspicious opacity. Treating for aspiration PNA. * Con't bipap PRN if NC not adequate to maintain sats > 92. * TRC nebs * Low threshold to intubate Neuro/ID: Patient's CSF shows 20,500 white blood cell, 611 red blood cell, less than 20 glucose, total protein over 600. Her blood cultures 2 grew gram- positive cocci, CSF culture grew gram-positive cocci. CSF Gram stain showing gram-positive cocci. CSF rapid strep is positive. Organism likely is streptococcus; unsurprising since most likely source is her otitis. Additionally , treating for aspiration PNA; see respiratory for full details. * Follow-up final CSF and blood cultures * Continue Decadron 0.15 mg/kg every 6 hours for 4 days. This is day 3. * Patient was empirically started on vancomycin, ceftriaxone, and ampicillin. Have discontinued Ampicillin on 03/18. Will d/c Vanco on 03/19 as pt is growing Strep sensitive to Ceftriaxone. * Pt off droplet precautions CVS: Patient has history of diabetes, hypertension. Hemodynamically stable. We will continue to monitor and keep within normal limits. Heme/Onc: Pt has H/H at 11.5/33.3. Stable. Will con't monitor. Msk: moving all extremeties spontaneously. Stable. Will Con't monitor. GI: Pt currently NPO; has fluids running. We informed family that either NG/TPN will likely be necessary if mental status does not improve by 03/21. FULL CODE NPO CHEMICAL DVT PPX Problem List: 1. Meningitis 2. Left otitis media 3. Altered mental state 4. Lactic acidosis Pain Ratin Pain Location: none Tomorrow's Labs & Rationales: cbc icu Plan DVT/Prophylaxis: pharmacological
--- NOTE | 2016-03-19 12:37 | PN- Ear, Nose & Throat ---
Subjective Subjective: Patient remains in ICU, moving around in bed, but not following commands or able to converse. No obvious pain or discomfort Continues to be on IV abx for meningitis. No drainage from ears Review of Systems: noncontributory Objective Vital Signs and I&Os Vital Signs Date Time Temp Pulse Resp B/P Pulse O2 O2 Flow FiO2 Ox Delivery Rate 03/19 799 97.2 101 26 160/90 98 Nasal 3.0L Cannula 03/19 08 98 Nasal 3.0L Cannula 03/19 0400 97 Nasal 3.0L Cannula 03/19 0020 81 98 03/19 0000 96.7 69 20 120/64 98 Nasal 3.0L Cannula 03/19 0000 98 Nasal 3.0L Cannula 03/18 2000 97 Nasal 3.0L Cannula 03/18 1615 90 99 03/18 1600 98 BIPAP 35% 03/18 1600 98.3 94 36 134/57 98 BIPAP 35% 03/18 1454 100 97 03/18 1234 94 99 Intake & Output 03/19 1600 03/19 0800 03/19 0000 03/18 1600 03/18 0800 03/18 0000 Intake Total 931 157 382 4316 801 Output Total 309 025 8351 1150 750 Balance 439 192 -550 171 51 Intake, IV 931 710 891 9980 801 Number 2 1 Bowel Movements Output, Urine 448 748 0887 1150 750 Patient 185 lb 186 lb Weight Physical Exam: moving in bed, facial movements intact but not purposeful or following commands Left TM remains with mild erythema but much improved Left mastoid nontender no drainage or blood from ear or nose OC/OP clera Neck supple Assessment/Plan Assessment/Plan Patient with meningitis, on IV antibiotics Remains with neurological problems, not responsive to commands or conversation Continue treatments for infection Once patient more stable, would recommend CT temporal bone to evaluate whether ear could be a source for the meningitis. Please call if further assistance needed. No surgical intervention would be immediately indicated. Otherwise, can f/u as outpatient whenever she is discharged. Thanks John Patel MD, FACS Core Measures/Miscellaneous Venous Thromboembolism VTE Risk Factors: Acute medical illness VTE Contraindications: No Contraindications VTE Prophylaxis Ordered Inpt: Mechanical (ALPS/TEDS) VTE Diagnosis: No VTE Type: NONE VTE Confirmed by (Test): NONE Beta Jonatan Is Beta Jonatan a Home Med? No Antibiotics Is Patient on Antibiotics? Yes
[2016-03-19 16:00] VITALS: BP 154/84
--- NOTE | 2016-03-19 19:22 | PN- Neurology ---
Subjective Subjective: Still with significant obtundation of mental status, although family feels she is more responsive and seemingly in less pain then the day of admission. Review of Systems: No change. Objective Vital Signs and I&Os Vital Signs Date Time Temp Pulse Resp B/P Pulse O2 O2 Flow FiO2 Ox Delivery Rate 03/19 1600 97.9 84 22 154/84 98 Nasal 3.0L Cannula 03/19 1600 96 Nasal 3.0L Cannula 03/19 1200 96 Nasal 3.0L Cannula 03/19 0800 97.2 101 26 160/90 98 Nasal 3.0L Cannula 03/19 0800 98 Nasal 3.0L Cannula 03/19 0400 97 Nasal 3.0L Cannula 03/19 0020 81 98 03/19 0000 96.7 69 20 120/64 98 Nasal 3.0L Cannula 03/19 0000 98 Nasal 3.0L Cannula 03/18 2000 97 Nasal 3.0L Cannula Intake & Output 03/19 1600 03/19 0800 03/19 0000 03/18 1600 03/18 0800 03/18 0000 Intake Total 840 931 704 853 3211 801 Output Total 500 976 669 6953 1150 750 Balance 340 439 192 -550 171 51 Intake, IV 840 931 504 716 3394 801 Number 2 1 Bowel Movements Output, Urine 500 286 854 2880 1150 750 Patient 185 lb 186 lb Weight Physical Exam: Obtunded. Moving around restlessly in bed with closed eye. Negative Brudzinski's sign. Current Medications: Current Medications Sig/Garrick Start time Last Medication Dose Route Stop Time Status Admin Acetaminophen 1,000 MG .STK-MED ONE 03/19 07 DC IV 03/19 07 Acetaminophen 1,000 MG Q6P PRN 03/17 1945 DC N/A 1 UNIT IV Acetaminophen 1,000 MG Q6-PRN PRN 03/17 1630 AC 03/19 N/A 1 UNIT IV 1754 Ceftriaxone Sodium 2,000 MG Q12H 03/17 1515 AC 03/19 IV 1559 Dexamethasone 13 MG Q6H 03/18 0000 AC 03/19 Dextrose/Water 50 ML IV 1813 Insulin Human Regular 0 Q6 03/17 1800 AC 03/19 SC 1813 Levothyroxine Sodium 12.5 MCG DAILY 03/19 1000 AC 03/19 IV 0958 Levothyroxine Sodium 12.5 MCG DAILY AC 03/18 0700 DC 03/18 IV 0824 Lorazepam 1 MG Q2 HRS NEEDED PRN 03/17 2100 AC 03/18 IV 0639 Morphine Sulfate 2 MG ONCE ONE 03/19 1430 DC IV 03/19 1431 Morphine Sulfate 2 MG ONCE ONE 03/18 2200 DC 03/18 IV 03/18 Pantoprazole Sodium 40 MG DAILY 03/18 1000 AC 03/19 IV 0956 Sodium Chloride 1,000 ML Q13H 03/18 1200 AC 03/19 IV 0137 Sodium Phosphate 15 mMol ONE ONE 03/18 1915 DC 03/18 Sodium Chloride 250 ML IV 03/188 2023 Vancomycin HCl 1,000 MG Q12 03/18 1030 DC 03/19 Dextrose/Water 250 ML IV 0953 Results Last 24 Hours of Lab Results: Laboratory Tests 03/19 0430 Chemistry Sodium (137 - 145 mmol/L) 143 Potassium (3.5 - 5.1 mmol/L) 4.3 Chloride (98 - 107 mmol/L) 111 H Carbon Dioxide (22 - 30 mmol/L) 23 Anion Gap (5 - 16) 9 BUN (7 - 17 mg/dL) 19 H Creatinine (0.5 - 1.0 mg/dL) 0.6 Estimated GFR (>60 ml/min) > 60 Glucose (65 - 99 mg/dL) 252 H Calcium (8.4 - 10.2 mg/dL) 8.5 Phosphorus (2.5 - 4.5 mg/dL) 2.7 Magnesium (1.6 - 2.3 mg/dL) 2.2 Total Bilirubin (0.2 - 1.3 mg/dL) 0.3 AST (14 - 36 U/L) 29 ALT (9 - 52 U/L) 32 Creatine Kinase (30 - 135 U/L) 190 H Albumin (3.5 - 5.0 g/dL) 2.9 L Hematology CBC w Diff MAN DIFF ORDERED WBC (4.8 - 10.8 /CUMM) 25.0 H RBC (4.20 - 5.40 /CUMM) 3.83 L Hgb (12.0 - 16.0 G/DL) 11.0 L Hct (37 - 47 %) 33.8 L MCV (81.0 - 99.0 FL) 88.4 MCH (27.0 - 31.0 PG) 28.8 RDW (11.5 - 14.5 %) 13.9 Plt Count (130 - 400 /CUMM) 222 MPV (7.4 - 10.4 FL) 9.9 Gran % (42.2 - 75.2 %) 91.4 H Lymphocytes % (20.5 - 51.1 %) 4.1 L Monocytes % (1.7 - 9.3 %) 4.4 Eosinophils % (0 - 5 %) 0 Basophils % (0.0 - 2.0 %) 0.1 Absolute Granulocytes (1.4 - 6.5 /CUMM) 22.9 H Segmented Neutrophils (42.2 - 75.2 %) 73 Band Neutrophils (0.0 - 5.0 %) 13 H Absolute Lymphocytes (1.2 - 3.4 /CUMM) 1.0 L Lymphocytes (20.5 - 51.1 %) 11 L Monocytes (1.7 - 9.3 %) 3 Absolute Monocytes (0.10 - 0.60 /CUMM) 1.1 H Absolute Eosinophils (0.0 - 0.7 /CUMM) 0 Absolute Basophils (0.0 - 0.2 /CUMM) 0 Platelet Estimate (ADEQUATE) ADEQUATE Polychromasia 1+ Ovalocytes FEW PUBS MCHC (33.0 - 37.0 G/DL) 32.6 L Other Body Source Fld Total RBCs Counted (%) 100 Recent Imaging Studies: CT Maxilofacial IMPRESSION: 1. Redemonstrated foci of pneumocephalus in the left temporal lobe with adjacent partial opacification of the left mastoid air cells and middle ear cavity. Tiny osseous densities are seen posterior to the petrous portion of the left temporal bone, raising concern for sequelae of temporal bone fracture in the setting of trauma. Alternatively, mastoiditis could have a similar appearance in the proper clinical setting. 2. Partial paranasal sinus opacification as described above. Assessment/Plan Assessment: 70 year old woman with Diabetes who developed a Streptococcus Pneumoniae middle ear infection and mastoditis that then extended into the brain resulting in pneumococcal meningitis. Plan: 1. Continue with appropriate medication cover per ID. 2. Agree with steroids. 3. Supportive care. YC
--- NOTE | 2016-03-19 20:06 | NUR ---
PATIENT WILL OPEN EYES SPONTANEOUSLY,MOVES ALL EXTREMITIES.PUPILS EQUAL,RESISTANT TO EYE OPENING.RESTLESS,CALMER AFTER REPOSITIONING. IVF AT 75 ML/HR. MONITOR IN SR AT RATE OF 92.NASAL O2 ON AT 3L. SAT=95%.
[2016-03-20] VITALS: BP 128/82
[2016-03-20 04:13] LABS: ABSOLUTE BASOPHIL COUNT 0 /CUMM (0.0-0.2); ABSOLUTE EOSINOPHIL COUNT 0 /CUMM (0.0-0.7); ABSOLUTE GRANULOCYTE CT 20.7 /CUMM (1.4-6.5); ABSOLUTE MONOCYTE COUNT 0.9 /CUMM (0.10-0.60); BASOPHIL % 0 % (0.0-2.0); EOSINOPHIL % 0 % (0-5); GRANULOCYTE % 91.7 % (42.2-75.2); HEMATOCRIT 32.2 % (37-47); MEAN CORPUSCULAR HGB 29.1 PG (27.0-31.0); MEAN CORPUSCULAR HGB CONC 33.5 G/DL (33.0-37.0); MEAN PLATELET VOLUME 9.2 FL (7.4-10.4); PLATELET COUNT 280 /CUMM (130-400); RBC DISTRIBUTION WIDTH 14.2 % (11.5-14.5); WHITE BLOOD CELL COUNT 22.5 /CUMM (4.8-10.8)
[2016-03-20 08:00] VITALS: BP 180/90
--- NOTE | 2016-03-20 09:00 | NUR ---
Patient is lethargic- will withdraw from pain stimuli. Able to move all extremities but not to command. Pupils are 4mm and sluggish. 1:1 sitter is at the bedside. NSR-ST on tele monitor. HR= 80-100's- will demetria down to the 40's at times when she is sleeping and goes apneic- (history of sleep apnea). SBP: 130-160's manually and up to the 190's with the autocuff. + pulses. On 3L nc, lungs clear and diminished at the bases. A non productive cough is noted. Abdomen is soft and non tender with + bowel sounds- remains NPO. Dominguez in place draining clear yellow urine. Skin is intact and no edema is noted. Pt medicated with IV tylenol for a FLACC score of 4- NS continues to infuse at 75mls/hr. Family at the bedside and updated frequently on POC. Dr. Treviño now at the bedside to evaluate.
--- NOTE | 2016-03-20 10:09 | PN- Infect Dx ---
Subjective Subjective: Afebrile on steroids. She remains agitated though somewhat less so and is answering questions, in what appears to be an appropriate manner, with monosyllabic answers. Objective Last 24 Hrs of Vital Signs/I&O Vital Signs Date Time Temp Pulse Resp B/P Pulse O2 O2 Flow FiO2 Ox Delivery Rate 03/20 08 98.7 101 24 180/90 94 Nasal 3.0L Cannula 03/20 0800 96 Nasal 3.0L Cannula 03/20 0400 97 Nasal 3.0L Cannula 03/20 0000 98.3 89 24 128/82 95 Nasal 2.0L Cannula 03/20 0000 95 Nasal 3.0L Cannula 03/19 2000 95 Nasal 3.0L Cannula 03/19 1600 97.9 84 22 154/84 98 Nasal 3.0L Cannula 03/19 1600 96 Nasal 3.0L Cannula 03/19 1200 96 Nasal 3.0L Cannula Intake & Output 03/20 1600 03/20 0800 03/20 0000 Intake Total 700 780 Output Total 340 420 Balance 360 360 Intake, IV 700 780 Output, Urine 340 420 Physical Exam Other Physical Findings: She is responsive to name and voice, mildly agitated, in no apparent respiratory distress Neck is more supple Lungs bilateral rhonchi Heart regular rhythm with no murmur Abdomen is soft, with no obvious tenderness, positive bowel sounds Extremities no cyanosis, clubbing or edema Dominguez catheter remains in place Results Last 24 Hours of Lab Results: Laboratory Tests 03/20 0330 Chemistry Sodium (137 - 145 mmol/L) 146 H Potassium (3.5 - 5.1 mmol/L) 4.2 Chloride (98 - 107 mmol/L) 111 H Carbon Dioxide (22 - 30 mmol/L) 26 Anion Gap (5 - 16) 9 BUN (7 - 17 mg/dL) 23 H Creatinine (0.5 - 1.0 mg/dL) 0.7 Estimated GFR (>60 ml/min) > 60 Glucose (65 - 99 mg/dL) 206 H Calcium (8.4 - 10.2 mg/dL) 8.7 Phosphorus (2.5 - 4.5 mg/dL) 2.1 L Magnesium (1.6 - 2.3 mg/dL) 2.1 Total Bilirubin (0.2 - 1.3 mg/dL) 0.4 AST (14 - 36 U/L) 25 ALT (9 - 52 U/L) 40 Albumin (3.5 - 5.0 g/dL) 2.9 L Hematology CBC w Diff MAN DIFF ORDERED WBC (4.8 - 10.8 /CUMM) 22.5 H RBC (4.20 - 5.40 /CUMM) 3.70 L Hgb (12.0 - 16.0 G/DL) 10.8 L Hct (37 - 47 %) 32.2 L MCV (81.0 - 99.0 FL) 87.0 MCH (27.0 - 31.0 PG) 29.1 RDW (11.5 - 14.5 %) 14.2 Plt Count (130 - 400 /CUMM) 280 MPV (7.4 - 10.4 FL) 9.2 Gran % (42.2 - 75.2 %) 91.7 H Lymphocytes % (20.5 - 51.1 %) 4.5 L Monocytes % (1.7 - 9.3 %) 3.8 Eosinophils % (0 - 5 %) 0 Basophils % (0.0 - 2.0 %) 0 L Absolute Granulocytes (1.4 - 6.5 /CUMM) 20.7 H Segmented Neutrophils (42.2 - 75.2 %) 94 H Absolute Lymphocytes (1.2 - 3.4 /CUMM) 1.0 L Lymphocytes (20.5 - 51.1 %) 2 L Monocytes (1.7 - 9.3 %) 4 Absolute Monocytes (0.10 - 0.60 /CUMM) 0.9 H Absolute Eosinophils (0.0 - 0.7 /CUMM) 0 Absolute Basophils (0.0 - 0.2 /CUMM) 0 Platelet Estimate (ADEQUATE) ADEQUATE Polychromasia 1+ Poikilocytosis 1+ Ovalocytes 1+ PUBS MCHC (33.0 - 37.0 G/DL) 33.5 Other Body Source Fld Total RBCs Counted (%) 100 Last 24 Hours of Keaton Results: No recent cultures Assessment/Plan Impression: Pneumococcal meningitis/sepsis likely secondary to otitis media, with evidence on CT scan of destruction of the petrous portion of the left temporal bone and with air in the left temporal lobe. She is more responsive, now verbalizing to some extent, but she remains agitated and lethargic. She remains afebrile on steroids, with white blood cell count, though decreased slightly, still elevated , possibly secondary to steroids, with decreased bands. She is currently on Ceftriaxone alone, which should also cover possible aspiration pneumonia, with chest x-ray revealing a patchy right lower lobe density. Suggestion: 1. Continue Decadron for a total of 4 days 2. Would consider repeat CT of the head in the a.m. if her mental status does not continue to improve 3. Continue Ceftriaxone
--- NOTE | 2016-03-20 10:15 | RADIOLOGY REPORT ---
EXAMINATION: XR PORTABLE ABDOMEN CLINICAL INFORMATION: Check NG tube placement COMPARISON: None. TECHNIQUE: AP supine radiograph of the abdomen. FINDINGS: Enteric tube courses below the diaphragm, with the tube tip turned back upon itself in the stomach. The visualized bowel gas pattern is nonobstructive. IMPRESSION: Enteric tube tip lies in the stomach.
--- NOTE | 2016-03-20 11:14 | PN- CRCU ---
Subjective HPI/Critical Care Issues: The patient remains somnolent. There were no overnight events reported. Objective Current Medications: Current Medications Sig/Garrick Start time Last Medication Dose Route Stop Time Status Admin Acetaminophen 1,000 MG Q6-PRN PRN 03/17 1630 03/20 N/A 1 UNIT IV 0806 Ceftriaxone Sodium 2,000 MG Q12H 03/17 1515 03/20 IV 0333 Dexamethasone 13 MG Q6H 03/18 0000 AC 03/20 Dextrose/Water 50 ML IV 0553 Insulin Human Regular 0 Q6 03/17 1800 03/20 SC 0559 Levothyroxine Sodium 12.5 MCG DAILY 03/19 1000 03/20 IV 1048 Lorazepam 1 MG Q2 HRS NEEDED PRN 03/17 2100 03/18 IV 0639 Morphine Sulfate 1 MG ONCE ONE 03/19 1945 DC IV 03/19 1946 Morphine Sulfate 2 MG ONCE ONE 03/19 1430 DC IV 03/19 1431 Pantoprazole Sodium 40 MG DAILY 03/18 1000 03/20 IV 1048 Potassium Phosphate 15 mMol ONE ONE 03/20 0845 03/20 Sodium Chloride 250 ML IV 03/20 1248 1048 Sodium Chloride 1,000 ML Q13H 03/18 1200 03/20 IV 0603 Vancomycin HCl 1,000 MG Q12 03/18 1030 DC 03/19 Dextrose/Water 250 ML IV 0953 Vital Signs & I&O Last 24 Hrs of Vitals and I&O: Vital Signs Date Time Temp Pulse Resp B/P Pulse O2 O2 Flow FiO2 Ox Delivery Rate 03/20 0800 98.7 101 24 180/90 94 Nasal 3.0L Cannula 03/20 0800 96 Nasal 3.0L Cannula 03/20 0400 97 Nasal 3.0L Cannula 03/20 0000 98.3 89 24 128/82 95 Nasal 2.0L Cannula 03/20 0000 95 Nasal 3.0L Cannula 03/19 2000 95 Nasal 3.0L Cannula 03/19 1600 97.9 84 22 154/84 98 Nasal 3.0L Cannula 03/19 1600 96 Nasal 3.0L Cannula 03/19 1200 96 Nasal 3.0L Cannula Intake & Output 03/20 1600 03/20 0800 03/20 0000 Intake Total 700 780 Output Total 340 420 Balance 360 360 Intake, IV 700 780 Output, Urine 340 420 Exam General Appearance: sedated, lethargic, mild distress Head: atraumatic, normal appearance Ears, Nose, Throat: normal pharynx, abnormal Typanic (L) Neck: limited range of motion Respiratory: chest non-tender, lungs clear, accessory muscle use Cardiovascular: tachycardia Gastrointestinal: normal bowel sounds, soft, non-tender Extremities: no edema Impression/Plan Impression/Plan Impression/Plan: 1. Pneumococcal meningitis and sepsis. The patient has ongoing acute changes in mental status associated with agitation and delirium. 2. Respiratory failure related to aspiration with an increased right basilar opacity thought to represent pneumonia. 3. Resolved lactic acidosis. 4. Malnutrition. Recommendations: * Keofeed tube placed, will start tube feeds if the patient tolerates. * Antibiotics as per ID. * Continue Decadron IV, to be stopped tomorrow. * NPO, maintain the patient on strict aspiration precautions. * Continue as needed Ativan, however avoid oversedation. * Alps for DVT prophylaxis. No subcutaneous heparin considering possible nondisplaced left temporal bone fracture. Will need to discuss this further with neurology. * Continue all current supportive care. * The patient's family was updated at the bedside.
--- NOTE | 2016-03-20 13:00 | NUR ---
A KO tube was previously placed by Dr. Avery at approx 1000- and an abdominal xray was done which confirmed placement. Nutrition consult was placed and tube feeds were ordered. However when started Glucerna 1.2- KO tube appeared to be clogged/kinked- was unable to be flushed. Dr. Avery notified and KO tube was removed and a new one to be placed. Family updated- Will continue to closely monitor patient.
--- NOTE | 2016-03-20 14:29 | RADIOLOGY REPORT ---
EXAMINATION: XR PORTABLE ABDOMEN CLINICAL INFORMATION: Meningitis. Check nasogastric tube placement COMPARISON: 03/20/2016 TECHNIQUE: AP supine view of the abdomen FINDINGS: The study is degraded by motion. As on the prior study, an enteric tube is seen descending the esophagus into the stomach. The distal tube coils back upon itself with the tip pointing cephalad in the gastric cardia. Nonobstructive abdominal bowel gas pattern. Mild S-shaped thoracolumbar scoliosis. IMPRESSION: The study is degraded by patient motion. The position of the patient's enteric tube is similar to the prior study, with the distal tube coiled back upon itself, pointing cephalad, with the tip in the cardia of the stomach. Consider advancement.
--- NOTE | 2016-03-20 15:47 | RADIOLOGY REPORT ---
EXAMINATION: XR PORTABLE ABDOMEN CLINICAL INFORMATION: Check NG tube placement COMPARISON: Abdominal radiograph from earlier today TECHNIQUE: AP portable supine radiograph of the abdomen. FINDINGS: Enteric tube tip appears advanced in comparison to the prior study and is no longer looped upon itself. Tip now lies in the region of the gastric antrum. The gas pattern is nonobstructive. The visualized lung bases are grossly clear. IMPRESSION: Interval advancement of the enteric tube, with tip now in the region of the gastric antrum.
[2016-03-20 16:00] VITALS: BP 174/90
--- NOTE | 2016-03-20 16:22 | NUR ---
KO tube replaced by Dr. Ferrer- and xray confirmation states that tube to be slightly advanced. This was done by Dr. Avery and a repeat xray was done for confirmation and pending. Report given to oncoming nurse and tube feeds to be started once xray confirms placement and assessed by house staff.
--- NOTE | 2016-03-20 16:50 | PN- Resident CRCU ---
Subjective HPI/CRCU Issues: Saw patient at bedside this a.m. She was a little more active than yesterday. She seemed less sedated. She is not pulling on the lines and as such did not require restraints. In the process of putting in a Dobbhoff, patient appeared to be responsive to commands. Family endorses that she seems to be more aware of her surroundings. This a.m. we started patient on tube feeds via Dobbhoff. No acute overnight events. Patient's phosphorus was noted to be at 2.1 this a.m. adequately repleted. Objective Vital Signs & I&O Last 8 Hrs of Vitals and I&O: Intake & Output 03/20 1600 Intake Total 730 Output Total 450 Balance 280 Intake, IV 730 Output, Urine 450 Patient 84.113 kg Weight Exam General Appearance: mild distress Head: atraumatic, normal appearance Ears, Nose, Throat: normal pharynx Neck: supple Respiratory: normal breath sounds, no respiratory distress Cardiovascular: regular rate/rhythm Gastrointestinal: soft, non-tender IV Drips IV Drips: Tube feeds Decadron Ceftriaxone Nutrition Nutrition: tube feeding Current Medications: Current Medications Sig/Garrick Start time Last Medication Dose Route Stop Time Status Admin Acetaminophen 1,000 MG Q6-PRN PRN 03/17 1630 AC 03/20 N/A 1 UNIT IV 1552 Ceftriaxone Sodium 2,000 MG Q12H 03/17 1515 AC 03/20 IV 1552 Dexamethasone 13 MG Q6H 03/18 0000 AC 03/20 Dextrose/Water 50 ML IV 1212 Insulin Human Regular 0 Q6 03/17 1800 AC 03/20 SC 1212 Levothyroxine Sodium 12.5 MCG DAILY 03/19 1000 AC 03/20 IV 1048 Lorazepam 1 MG Q2 HRS NEEDED PRN 03/17 2100 AC 03/18 IV 0639 Morphine Sulfate 1 MG ONCE ONE 03/19 1945 DC IV 03/19 1946 Pantoprazole Sodium 40 MG DAILY 03/18 1000 AC 03/20 IV 1048 Potassium Phosphate 15 mMol ONE ONE 03/20 0845 DC 03/20 Sodium Chloride 250 ML IV 03/20 1248 1048 Sodium Chloride 1,000 ML Q13H 03/18 1200 AC 03/20 IV 0603 Impression/Plan Impression/Problem List Impression: This is a 70 year old female with PMH of hypotension, hyperlipidemia, hypothyroidism DM who came was brought to hospital after being found unresponsive. She had one day of otalgia and difficulty hearing. Found down and unresponsive, subsequently brought to . In ED was found to have Tmax 102, AMS/ agitation, CT with pneumocephalus in temporal lobe, and opacification of mastoid air cells. Due to concern for bacterial meningitis 2/2 otitis she was admitted to ICU. PLAN Respiratory: Today patient is satting well on 2 L nasal cannula. Of note, during admission fluoro-guided LP by IR pt had an episode of emesis and likely aspirated, was put on BiPAP. CXR seems to show corresponding suspicious opacity. Treating for aspiration PNA. * Con't bipap PRN if NC not adequate to maintain sats > 92. * TRC nebs * Low threshold to intubate Neuro/ID: Patient's CSF shows 20,500 white blood cell, 611 red blood cell, less than 20 glucose, total protein over 600. Her blood cultures 2, CSF culture, and CSF Gram stain showed positive for strep pneumo. Additionally, treating for aspiration PNA; see respiratory for full details. * Follow-up final CSF and blood cultures * Continue Decadron 0.15 mg/kg every 6 hours for 4 days. Stop tomorrow. * Patient was empirically started on vancomycin, ceftriaxone, and ampicillin. Have discontinued Ampicillin on 03/18. Will d/c Vanco on 03/19 as pt is growing Strep sensitive to Ceftriaxone. * Pt off droplet precautions CVS: Patient has history of diabetes, hypertension. Hemodynamically stable. We will continue to monitor and keep within normal limits. Heme/Onc: Pt has H/H at 10.8 and 32.2. Stable. Will con't monitor. Msk: moving all extremeties spontaneously. Stable. Will Con't monitor. GI: We placed Dobbhoff this AM. After placement was verified via abdominal x- ray, we started tube feeds. FULL CODE NPO CHEMICAL DVT PPX Problem List: 1. Meningitis 2. Sepsis 3. Left otitis media 4. Altered mental state 5. Lactic acidosis Pain Ratin Pain Location: none Tomorrow's Labs & Rationales: icu cbc Plan DVT/Prophylaxis: pharmacological
[2016-03-21] VITALS: BP 170/90
--- NOTE | 2016-03-21 01:09 | NUR ---
MANUAL BP 170/90. RESULT REPORTED TO . COZAR 100MG VIA KEOFEED TUBE. MONITORING BP AT THIS TIME. TOLERATING TF OG FS GLUCERNA 1.2 AT 30ML OF 0100. SATURATION ON 3L 93%, LUNGS SOUND CLEAR. PT HAS A SIMMONS ADEQUATE UO AT THIS TIME.
--- NOTE | 2016-03-21 03:06 | NUR ---
MANUAL BP 160/100. AWARE. HR ALSO WENT DOWN TO 50'S AFTER COBAYRON. AWARE WELL
[2016-03-21 04:55] LABS: ABSOLUTE BASOPHIL COUNT 0 /CUMM (0.0-0.2); ABSOLUTE EOSINOPHIL COUNT 0 /CUMM (0.0-0.7); ABSOLUTE GRANULOCYTE CT 13.5 /CUMM (1.4-6.5); ABSOLUTE LYMPH COUNT 0.9 /CUMM (1.2-3.4); ABSOLUTE MONOCYTE COUNT 0.6 /CUMM (0.10-0.60); BASOPHIL % 0.2 % (0.0-2.0); EOSINOPHIL % 0 % (0-5); GRANULOCYTE % 89.8 % (42.2-75.2); MEAN CORPUSCULAR HGB 28.6 PG (27.0-31.0); MEAN CORPUSCULAR HGB CONC 32.9 G/DL (33.0-37.0); MEAN CORPUSCULAR VOLUME 86.9 FL (81.0-99.0); MEAN PLATELET VOLUME 9.4 FL (7.4-10.4); PLATELET COUNT 281 /CUMM (130-400); WHITE BLOOD CELL COUNT 15.1 /CUMM (4.8-10.8)
[2016-03-21 08:00] VITALS: BP 160/80
--- NOTE | 2016-03-21 10:01 | PN- CRCU ---
Subjective HPI/Critical Care Issues: The patient remains obtunded and intermittently agitated. She is afebrile. She remains hemodynamically stable. There were no overnight events reported. Objective Current Medications: Current Medications Sig/Garrick Start time Last Medication Dose Route Stop Time Status Admin Acetaminophen 1,000 MG .STK-MED ONE 03/20 1548 DC IV 03/20 1549 Acetaminophen 1,000 MG Q6-PRN PRN 03/17 1630 03/20 N/A 1 UNIT IV 1552 Ceftriaxone Sodium 2,000 MG Q12H 03/17 1515 AC 03/21 IV 0250 Dexamethasone 13 MG Q6H 03/18 0000 AC 03/21 Dextrose/Water 50 ML IV 0531 Insulin Human Regular 0 Q6 03/17 1800 AC 03/21 SC 0532 Levothyroxine Sodium 12.5 MCG DAILY 03/19 1000 AC 03/20 IV 1048 Lorazepam 1 MG Q2 HRS NEEDED PRN 03/17 2100 AC 03/18 IV 0639 Losartan Potassium 100 MG DAILY 03/20 2345 03/21 PO 0027 Pantoprazole Sodium 40 MG DAILY 03/18 1000 AC 03/20 IV 1048 Potassium Phosphate 15 mMol ONE ONE 03/20 0845 DC 03/20 Sodium Chloride 250 ML IV 03/20 1248 1048 Sodium Chloride 1,000 ML Q13H 03/18 1200 AC 03/21 IV 0448 Vital Signs & I&O Last 24 Hrs of Vitals and I&O: Vital Signs Date Time Temp Pulse Resp B/P Pulse O2 O2 Flow FiO2 Ox Delivery Rate 03/21 0400 93 Nasal 3.0L Cannula 03/21 0027 96.9 91 20 170/90 03/21 0000 93 Nasal 3.0L Cannula 03/21 0000 96.4 91 20 170/90 93 Nasal 3.0L Cannula 03/20 2000 94 Nasal 3.0L Cannula 03/20 1600 94 Nasal 3.0L Cannula 03/20 1600 97.9 89 20 174/90 94 Nasal 3.0L Cannula 03/20 1200 96 Nasal 3.0L Cannula Intake & Output 03/21 1600 03/21 0800 03/21 0000 Intake Total 1005 900 Output Total 720 590 Balance 285 310 Intake, IV 600 700 Intake, Tube 215 105 Feeding Intake, Tube 190 95 Irrigant Output, Urine 720 590 Exam General Appearance: sedated, lethargic, mild distress Head: atraumatic, normal appearance Ears, Nose, Throat: normal pharynx, abnormal Typanic (L) Neck: limited range of motion Respiratory: chest non-tender, lungs clear, accessory muscle use Cardiovascular: tachycardia Gastrointestinal: normal bowel sounds, soft, non-tender Extremities: no edema Impression/Plan Impression/Plan Impression/Plan: 1. Pneumococcal meningitis and sepsis. The patient has ongoing acute changes in mental status which remains a significant concern. 2. Respiratory failure related to aspiration with an increased right basilar opacity. 3. Malnutrition. Recommendations: * CT of the brain with contrast. * BP control - can only give IV meds as patient can not take PO. Avoid dropping BP too quickly. Hydralazine PRN. * Keofeed tube placed, continue tube feeds. * Maintain the patient on strict aspiration precautions. * Antibiotics as per ID. * Continue as needed Ativan, however avoid oversedation. * Alps for DVT prophylaxis. No subcutaneous heparin considering possible nondisplaced left temporal bone fracture. Will need to discuss this further with neurology. * Continue all current supportive care. * The patient's family was updated at the bedside.
--- NOTE | 2016-03-21 10:08 | PN- Infect Dx ---
Subjective Subjective: Afebrile on steroids. Objective Last 24 Hrs of Vital Signs/I&O Vital Signs Date Time Temp Pulse Resp B/P Pulse O2 O2 Flow FiO2 Ox Delivery Rate 03/21 0400 93 Nasal 3.0L Cannula 03/21 0027 96.9 91 20 170/90 03/21 0000 93 Nasal 3.0L Cannula 03/21 0000 96.4 91 20 170/90 93 Nasal 3.0L Cannula 03/20 2000 94 Nasal 3.0L Cannula 03/20 1600 94 Nasal 3.0L Cannula 03/20 1600 97.9 89 20 174/90 94 Nasal 3.0L Cannula 03/20 1200 96 Nasal 3.0L Cannula Intake & Output 03/21 1600 03/21 0800 03/21 0000 Intake Total 1005 900 Output Total 720 590 Balance 285 310 Intake, IV 600 700 Intake, Tube 215 105 Feeding Intake, Tube 190 95 Irrigant Output, Urine 720 590 Physical Exam Other Physical Findings: She responds to voice but is nonverbal Neck resistant to flexion Lungs scattered rhonchi bilaterally Heart regular rhythm with no murmur Abdomen is soft, with no obvious tenderness, positive bowel sounds Extremities no cyanosis, clubbing or edema Dominguez catheter remains in place Results Last 24 Hours of Lab Results: Laboratory Tests 03/21 0415 Chemistry Sodium (137 - 145 mmol/L) 147 H Potassium (3.5 - 5.1 mmol/L) 4.4 Chloride (98 - 107 mmol/L) 112 H Carbon Dioxide (22 - 30 mmol/L) 24 Anion Gap (5 - 16) 11 BUN (7 - 17 mg/dL) 29 H Creatinine (0.5 - 1.0 mg/dL) 0.6 Estimated GFR (>60 ml/min) > 60 Glucose (65 - 99 mg/dL) 264 H Calcium (8.4 - 10.2 mg/dL) 8.7 Phosphorus (2.5 - 4.5 mg/dL) 2.7 Magnesium (1.6 - 2.3 mg/dL) 2.0 Total Bilirubin (0.2 - 1.3 mg/dL) 0.7 AST (14 - 36 U/L) 23 ALT (9 - 52 U/L) 38 Albumin (3.5 - 5.0 g/dL) 2.9 L Hematology CBC w Diff MAN DIFF ORDERED WBC (4.8 - 10.8 /CUMM) 15.1 H RBC (4.20 - 5.40 /CUMM) 3.80 L Hgb (12.0 - 16.0 G/DL) 10.9 L Hct (37 - 47 %) 33.0 L MCV (81.0 - 99.0 FL) 86.9 MCH (27.0 - 31.0 PG) 28.6 RDW (11.5 - 14.5 %) 14.0 Plt Count (130 - 400 /CUMM) 281 MPV (7.4 - 10.4 FL) 9.4 Gran % (42.2 - 75.2 %) 89.8 H Lymphocytes % (20.5 - 51.1 %) 5.9 L Monocytes % (1.7 - 9.3 %) 4.1 Eosinophils % (0 - 5 %) 0 Basophils % (0.0 - 2.0 %) 0.2 Absolute Granulocytes (1.4 - 6.5 /CUMM) 13.5 H Segmented Neutrophils (42.2 - 75.2 %) 81 H Band Neutrophils (0.0 - 5.0 %) 1 Absolute Lymphocytes (1.2 - 3.4 /CUMM) 0.9 L Lymphocytes (20.5 - 51.1 %) 8 L Monocytes (1.7 - 9.3 %) 9 Absolute Monocytes (0.10 - 0.60 /CUMM) 0.6 Absolute Eosinophils (0.0 - 0.7 /CUMM) 0 Absolute Basophils (0.0 - 0.2 /CUMM) 0 Metamyelocytes (0.0 - 1.0 %) 1 Platelet Estimate (ADEQUATE) ADEQUATE Polychromasia 1+ Poikilocytosis 1+ Ovalocytes 1+ PUBS MCHC (33.0 - 37.0 G/DL) 32.9 L Other Body Source Fld Total RBCs Counted (%) 100 Last 24 Hours of [place] Results: Blood cultures March 18 positive for strep pneumoniae sensitive to Penicillin, Ceftriaxone and Vancomycin Assessment/Plan Impression: Pneumococcal meningitis/sepsis likely secondary to otitis media, with evidence on CT scan of destruction of the petrous portion of the left temporal bone and with air in the left temporal lobe. She remains quite lethargic, with minimal response, despite now 4 days of treatment, currently Ceftriaxone, which should also cover for her presumed aspiration pneumonia. Of interest the sensitivities of her strep pneumo isolate are different in the blood and CSF with regard to Penicillin and will discuss further with the lab. Complications of meningitis, including infarct, hydrocephalus and lateral sinus thrombosis, must be considered if she does not continue to improve. She remains afebrile (on steroids) with white blood cell count decreasing. Suggestion: 1. Discontinue Decadron 2. Repeat CT of the head with IV contrast 3. Consider MRI of the head if/when feasible if CT is negative 4. Continue Ceftriaxone
--- NOTE | 2016-03-21 14:10 | RADIOLOGY REPORT ---
EXAMINATION: XR PORTABLE CHEST CLINICAL INFORMATION: PICC placement. COMPARISON: 03/18/2016, abdominal x-ray from 03/20/2016 TECHNIQUE: Portable AP view of the chest was obtained. FINDINGS: Since the prior study there has been placement of a right-sided PICC whose tip terminates at the cavoatrial junction. The cardiomediastinal silhouette is stable given differences in technique. There remain patchy right-sided airspace and interstitial opacities as well as mild bilateral central pulmonary vascular prominence. A feeding tube is visualized which extends below the hemidiaphragm, though due to technique the tip is difficult to definitively visualize. There is no evidence of pneumothorax. There is minor blunting of the left costophrenic angle, similar to the prior. IMPRESSION: Interval placement of a right-sided PICC, with tip terminating at the cavoatrial junction. No pneumothorax. Stable patchy opacities in the right greater than left lungs and a small left pleural effusion.
--- NOTE | 2016-03-21 15:57 | NUR ---
PT IS RESTLESS TODAY , FREUQENTLY SHAKING HEAD, LOCKING ARMS. MONITOR IS SB TO NSR AND HOUSESTAFF IS AWARE. SHE REMAINS HYPERTENSIVE. PT HAS VERY POOR PERIPHERAL IV ACCESS, UNABLE TO RESTART HER IV. AFTER CONSULTATION WITH DR. AVILA AND DR. LI, SINGLE LUMEN PICC PLACED. ATTEMPTED TO DO CT AND PT WAS UNABLE TO KEEP HER HEAD STILL, THUS TEST NOT STARTED. HOUSESTAFF AND PTS FAMILY NOTIFIED. FAMILY HAS VISITED AND HAS BEEN UPDATED. SITTER MAINTAINED WITH PT.
[2016-03-21 16:00] VITALS: BP 160/84
--- NOTE | 2016-03-21 17:14 | PN- Resident CRCU ---
Subjective HPI/CRCU Issues: Pt in ICU for: pneumococcal meningitis. Pt seems more alert now. She is still agitated and confused. Unable to follow commands but she seems much calmer. Overnight she seemed to bring back up some of her tube feed. She was suctioned, tube feed appropriately managed. Her O2 sat remained stable and has no white count this AM. Objective Vital Signs & I&O Last 8 Hrs of Vitals and I&O: Intake & Output 03/21 1600 Intake Total 1190 Output Total 610 Balance 580 Intake, IV 700 Intake, Tube 300 Feeding Intake, Tube 190 Irrigant Output, Urine 610 Exam General Appearance: well developed/nourished, sedated Head: atraumatic, normal appearance Ears, Nose, Throat: normal pharynx Neck: supple Respiratory: chest non-tender, no respiratory distress Cardiovascular: regular rate/rhythm, edema Gastrointestinal: soft, non-tender Extremities: normal inspection IV Drips IV Drips: decadron ceftriaxone Nutrition Nutrition: tube feeding Current Medications: Current Medications Sig/Garrick Start time Last Medication Dose Route Stop Time Status Admin Acetaminophen 1,000 MG Q6-PRN PRN 03/17 1630 AC 03/20 N/A 1 UNIT IV 1552 Ceftriaxone Sodium 2,000 MG Q12H 03/17 1515 AC 03/21 IV 0250 Dexamethasone 13 MG Q6H 03/18 0000 DC 03/21 Dextrose/Water 50 ML IV 0531 Insulin Human Regular 0 Q6 03/17 1800 AC 03/21 SC 0532 Levothyroxine Sodium 12.5 MCG DAILY 03/19 1000 AC 03/21 IV 1017 Lorazepam 1 MG Q2 HRS NEEDED PRN 03/17 2100 AC 03/18 IV 0639 Losartan Potassium 100 MG DAILY 03/20 2345 AC 03/21 PO 0027 Pantoprazole Sodium 40 MG DAILY 03/18 1000 AC 03/21 IV 1018 Sodium Chloride 1,000 ML Q13H 03/18 1200 AC 03/21 IV 0448 Impression/Plan Impression/Problem List Impression: This is a 70 year old female with PMH of hypotension, hyperlipidemia, hypothyroidism DM who came was brought to hospital after being found unresponsive. She had one day of otalgia and difficulty hearing. Found down and unresponsive, subsequently brought to . In ED was found to have Tmax 102, AMS/ agitation, CT with pneumocephalus in temporal lobe, and opacification of mastoid air cells. Due to concern for bacterial meningitis 2/2 otitis she was admitted to ICU. PLAN Respiratory: STABLE. Today patient is satting well on 2 L nasal cannula. Of note, during admission fluoro-guided LP by IR pt had an episode of emesis and likely aspirated, was put on BiPAP. CXR showed corresponding suspicious opacity. She is less agitated and is not requiring bipap. * Con't bipap PRN if NC not adequate to maintain sats > 92. * TRC nebs * Low threshold to intubate Neuro/ID: Initially patient's CSF shows 20,500 white blood cell, 611 red blood cell, less than 20 glucose, total protein over 600. Her blood cultures 2, CSF culture, and CSF Gram stain showed positive for strep pneumo. Additionally, treating for aspiration PNA; see respiratory for full details. * D/C Decadron 0.15 mg/kg every 6 hours; as she got it for 4 days. * Patient was empirically started on vancomycin, ceftriaxone, and ampicillin. Have discontinued Ampicillin on 03/18; d/c Vanco on 03/19 as pt is growing Strep sensitive to Ceftriaxone. * Pt off droplet precautions * CT Head with IV contrast CVS: Patient has history of diabetes, hypertension. Hemodynamically stable. We will continue to monitor and keep within normal limits. * RISS * Tube feeds Heme/Onc: Stable. Will con't monitor. Msk: moving all extremeties spontaneously. Stable. Will Con't monitor. GI: placed Dobbhoff on 03/20. After placement was verified via abdominal x-ray, we started tube feeds. FULL CODE NPO CHEMICAL DVT PPX Problem List: 1. Lactic acidosis 2. Altered mental state 3. Sepsis Pain Ratin Tomorrow's Labs & Rationales: icu cbc Plan DVT/Prophylaxis: pharmacological
[2016-03-22 05:22] LABS: ABSOLUTE BASOPHIL COUNT 0 /CUMM (0.0-0.2); ABSOLUTE EOSINOPHIL COUNT 0 /CUMM (0.0-0.7); ABSOLUTE GRANULOCYTE CT 12.1 /CUMM (1.4-6.5); ABSOLUTE LYMPH COUNT 1.6 /CUMM (1.2-3.4); ABSOLUTE MONOCYTE COUNT 0.1 /CUMM (0.10-0.60); BASOPHIL % 0.2 % (0.0-2.0); EOSINOPHIL % 0 % (0-5); GRANULOCYTE % 87.8 % (42.2-75.2); MEAN CORPUSCULAR HGB 28.6 PG (27.0-31.0); MEAN CORPUSCULAR VOLUME 86.9 FL (81.0-99.0); MEAN PLATELET VOLUME 8.9 FL (7.4-10.4); PLATELET COUNT 275 /CUMM (130-400); RBC DISTRIBUTION WIDTH 14.1 % (11.5-14.5); WHITE BLOOD CELL COUNT 13.7 /CUMM (4.8-10.8)
[2016-03-22 08:00] VITALS: BP 148/70
--- NOTE | 2016-03-22 11:29 | PN- CRCU ---
Subjective HPI/Critical Care Issues: The patient is more awake. She is intermittently following commands. She is not yet able to communicate. She is afebrile. Her blood pressure has been elevated despite multiple medications. Her respiratory status has slightly deteriorated noting that she is now requiring 4 L nasal cannula as opposed to 3. She has excellent urine output. She is tolerating tube feeds well. She has not recently had a bowel movement. Objective Current Medications: Current Medications Sig/Garrick Start time Last Medication Dose Route Stop Time Status Admin Acetaminophen 1,000 MG Q6-PRN PRN 03/17 1630 AC 03/20 N/A 1 UNIT IV 1552 Ceftriaxone Sodium 2,000 MG Q12H 03/17 1515 AC 03/22 IV 0309 Dexamethasone 13 MG Q6H 03/18 0000 DC 03/21 Dextrose/Water 50 ML IV 0531 Dextrose/Sodium 1,000 ML Q13H 03/22 0615 AC 03/22 Chloride IV 0614 Insulin Human Regular 0 Q6 03/17 1800 AC 03/22 SC 0557 Levothyroxine Sodium 12.5 MCG DAILY 03/19 1000 AC 03/21 IV 1017 Lorazepam 1 MG Q2 HRS NEEDED PRN 03/17 2100 AC 03/18 IV 0639 Losartan Potassium 100 MG ONCE ONE 03/21 2115 DC 03/21 PO 03/219 Losartan Potassium 100 MG DAILY 03/20 2345 AC 03/21 PO 0027 Pantoprazole Sodium 40 MG DAILY 03/18 1000 AC 03/21 IV 1018 Sodium Chloride 1,000 ML Q13H 03/18 1200 DC 03/21 IV 1847 Vital Signs & I&O Last 24 Hrs of Vitals and I&O: Vital Signs Date Time Temp Pulse Resp B/P Pulse O2 O2 Flow FiO2 Ox Delivery Rate 03/22 0400 97 Nasal 4.0L Cannula 03/22 0000 97 Nasal 5.0L Cannula 03/21 2129 106 188/80 03/21 2000 93 Nasal 5.0L Cannula 03/21 1600 98.2 56 20 160/84 98 Nasal 3.0L Cannula 03/21 1600 96 Nasal 3.0L Cannula 03/21 1200 98 Nasal 3.0L Cannula Intake & Output 03/22 1600 03/22 0800 03/22 0000 Intake Total 1274 1240 Output Total 1100 1100 Balance 174 140 Intake, IV 593 600 Intake, Tube 491 450 Feeding Intake, Tube 190 190 Irrigant Output, Urine 1100 1100 Exam General Appearance: sedated, lethargic, mild distress Head: atraumatic, normal appearance Neck: limited range of motion Respiratory: chest non-tender, lungs clear, accessory muscle use Cardiovascular: tachycardia Gastrointestinal: normal bowel sounds, soft, non-tender Extremities: no edema Impression/Plan Impression/Plan Impression/Plan: 1. Pneumococcal meningitis and sepsis. The patient has ongoing acute changes in mental status which remains a significant concern. 2. Respiratory failure related to aspiration with an increased right basilar opacity. 3. Malnutrition. 4. Uncontrolled hypertension. 5. Constipation. Recommendations: * Start IV hydralazine 10 mg every 8 hours. Hold if systolic blood pressures less than 160. If the patient's blood pressure is not controlled on this regimen, we will consult cardiology for assistance. Avoid rapid over correction of blood pressure. * Keofeed tube placed, continue tube feeds. * Start a bowel regimen - give a Dulcolax suppository today. * Maintain the patient on strict aspiration precautions. * Antibiotics as per ID - continue ceftriaxone. * Alps for DVT prophylaxis. No subcutaneous heparin considering possible nondisplaced left temporal bone fracture. Will need to discuss this further with neurology. * Continue all current supportive care. * The patient's family was updated at the bedside.
--- NOTE | 2016-03-22 12:02 | PN- Ear, Nose & Throat ---
Subjective Subjective: patient remains in ICU, not intubated. breathing comfortably with o2 more responsive, and did recognize family members not able to respond to commands no pain continues on IV ceftriaxone for pneumococcal meningitis ears without drainage Review of Systems: noncontributory Objective Vital Signs and I&Os Vital Signs Date Time Temp Pulse Resp B/P Pulse O2 O2 Flow FiO2 Ox Delivery Rate 03/22 0400 97 Nasal 4.0L Cannula 03/22 0000 97 Nasal 5.0L Cannula 03/21 2129 106 188/80 03/21 2000 93 Nasal 5.0L Cannula 03/21 1600 98.2 56 20 160/84 98 Nasal 3.0L Cannula 03/21 1600 96 Nasal 3.0L Cannula 03/21 1200 98 Nasal 3.0L Cannula Intake & Output 03/22 1600 03/22 0800 03/22 0000 03/21 1600 03/21 0800 03/21 0000 Intake Total 1274 1240 1190 1005 900 Output Total 1100 1100 610 720 590 Balance 174 140 580 285 310 Intake, IV 593 600 700 600 700 Intake, Tube 491 450 300 215 105 Feeding Intake, Tube 190 190 190 190 95 Irrigant Output, Urine 1100 1100 610 720 590 Physical Exam: laying in bed not following commands\ Left TM improved, with barely any remaining erythema Left mastoid nontender No drainage from ear or nose OC/OP clear neck supple Assessment/Plan Assessment/Plan Pneumococcal meningitis on IV antibiotics Neurological condition remains concerning - more responsive but not following commands Left acute otitis media is resolving very well. Ear looks nearly normal at this point. As she stabilizes, will need CT temporal bone to evaluate ear/mastoid Can be followed as outpatient where further interventions will be discussed with her and her family. Thank you John Patel MD, FACS Core Measures/Miscellaneous Venous Thromboembolism VTE Risk Factors: Acute medical illness VTE Contraindications: No Contraindications VTE Prophylaxis Ordered Inpt: Mechanical (ALPS/TEDS) VTE Diagnosis: No VTE Type: NONE VTE Confirmed by (Test): NONE Beta Jonatan Is Beta Jonatan a Home Med? No Antibiotics Is Patient on Antibiotics? Yes Attending MD Review Statement Attending Statement Attending MD Statement: examined this patient
--- NOTE | 2016-03-22 15:33 | PN- Resident CRCU ---
Subjective HPI/CRCU Issues: Patient was seen and examined. Significant improvement can be noticed, comparing to yesterday she is more awake and alert. Around 2 PM patient was oriented to place and person but not time. She recognized her and her son. She is now in 4 L of oxygen. No sufficient review system can be obtained Objective Vital Signs & I&O Last 8 Hrs of Vitals and I&O: Intake & Output 03/22 1600 Intake Total Output Total 1400 Balance -1400 Output, Urine 1400 Exam General Appearance: well developed/nourished, alert, awake, lethargic, mild distress Head: atraumatic, normal appearance Respiratory: clear chest with very mild wheezing Cardiovascular: regular rate/rhythm Gastrointestinal: soft, non-tender Extremities: bilateral lower extremity edema Current Medications: Current Medications Sig/Garrick Start time Last Medication Dose Route Stop Time Status Admin Acetaminophen 1,000 MG Q6-PRN PRN 03/17 1630 AC 03/20 N/A 1 UNIT IV 1552 Ceftriaxone Sodium 2,000 MG Q12H 03/17 1515 AC 03/22 IV 1608 Dexamethasone 13 MG Q6H 03/18 0000 DC 03/21 Dextrose/Water 50 ML IV 0531 Dextrose/Sodium 1,000 ML Q13H 03/22 0615 AC 03/22 Chloride IV 0614 Insulin Human Regular 0 Q6 03/17 1800 AC 03/22 SC 1200 Levothyroxine Sodium 12.5 MCG DAILY 03/19 1000 AC 03/22 IV 1601 Lorazepam 1 MG Q2 HRS NEEDED PRN 03/17 2100 AC 03/18 IV 0639 Losartan Potassium 100 MG ONCE ONE 03/21 2115 DC 03/21 PO 03/21 2116 2129 Losartan Potassium 100 MG DAILY 03/20 2345 AC 03/22 PO 1000 Pantoprazole Sodium 40 MG DAILY 03/18 1000 AC 03/22 IV 1000 Sodium Chloride 1,000 ML Q13H 03/18 1200 DC 03/21 IV 1847 Impression/Plan Impression/Problem List Impression: Impression: This is a 70 year old female with PMH of hypotension, hyperlipidemia, hypothyroidism DM who came was brought to hospital after being found unresponsive. She had one day of otalgia and difficulty hearing. Found down and unresponsive, subsequently brought to . In ED was found to have Tmax 102, AMS/ agitation, CT with pneumocephalus in temporal lobe, and opacification of mastoid air cells. Due to concern for bacterial meningitis 2/2 otitis she was admitted to ICU. PLAN Respiratory: STABLE. Patient now needs 4 L of oxygen to keep saturation above 90. Of note, during admission fluoro-guided LP by IR pt had an episode of emesis and likely aspirated, was put on BiPAP. CXR showed corresponding suspicious opacity. She is less agitated and is not requiring bipap. * Con't bipap PRN if NC not adequate to maintain sats > 92. * TRC nebs * Low threshold to intubate * We will watch of antibiotic Neuro/ID: Initially patient's CSF shows 20,500 white blood cell, 611 red blood cell, less than 20 glucose, total protein over 600. Her blood cultures 2, CSF culture, and CSF Gram stain showed positive for strep pneumo. Additionally, treating for aspiration PNA; see respiratory for full details. * D/C Decadron 0.15 mg/kg every 6 hours; as she got it for 4 days. * Patient was empirically started on vancomycin, ceftriaxone, and ampicillin. Have discontinued Ampicillin on 03/18; d/c Vanco on 03/19 as pt is growing Strep sensitive to Ceftriaxone. * Pt off droplet precautions * CT Head with IV contrast will be considered tomorrow CVS: Patient has history of diabetes, hypertension. Hemodynamically stable. We will continue to monitor and keep within normal limits. * She will be started on IV hydralazine 10 mg 8. Hydralazine is to be held if blood pressure drop underwent 60. * If blood pressure is not controlled with current regimen, we will consider a cardiac consult Heme/Onc: Stable. Will con't monitor. Msk: moving all extremeties spontaneously. Stable. Will Con't monitor. GI: placed Dobbhoff on 03/20. After placement was verified via abdominal x-ray, we started tube feeds. * We will continue Tube feeds * We will start Dulcolax suppository 10 mg FULL CODE NPO CHEMICAL DVT PPX Problem List: 1. Meningitis 2. Sepsis 3. Altered mental state Pain Ratin Tomorrow's Labs & Rationales: CBC, ICU bundle Plan DVT/Prophylaxis: pharmacological
[2016-03-22 16:00] VITALS: BP 168/0
[2016-03-23] VITALS: BP 140/60
--- NOTE | 2016-03-23 01:02 | NUR ---
PT OPENS EYES BUT DOES NOT FOLLOW COMMAND. MOVING HER EXTREMETIES WELL. TOLARATING TF OF FS GLUCERNA 1.2 AT 60ML/H. SATURATION 93% ON 4L O2, LUNGS
[2016-03-23 05:38] LABS: ABSOLUTE BASOPHIL COUNT 0 /CUMM (0.0-0.2); ABSOLUTE EOSINOPHIL COUNT 0.1 /CUMM (0.0-0.7); ABSOLUTE GRANULOCYTE CT 13.2 /CUMM (1.4-6.5); ABSOLUTE LYMPH COUNT 1.8 /CUMM (1.2-3.4); ABSOLUTE MONOCYTE COUNT 1.5 /CUMM (0.10-0.60); BASOPHIL % 0.2 % (0.0-2.0); EOSINOPHIL % 0.3 % (0-5); GRANULOCYTE % 79.7 % (42.2-75.2); HEMATOCRIT 37.3 % (37-47); MEAN CORPUSCULAR HGB 28.7 PG (27.0-31.0); MEAN CORPUSCULAR HGB CONC 33.1 G/DL (33.0-37.0); MEAN CORPUSCULAR VOLUME 86.6 FL (81.0-99.0); MEAN PLATELET VOLUME 9.3 FL (7.4-10.4); PLATELET COUNT 266 /CUMM (130-400); RBC DISTRIBUTION WIDTH 13.9 % (11.5-14.5); RED BLOOD CELL CT 4.31 /CUMM (4.20-5.40); WHITE BLOOD CELL COUNT 16.6 /CUMM (4.8-10.8)
[2016-03-23 08:00] VITALS: BP 140/80
--- NOTE | 2016-03-23 08:45 | NUR ---
REC'D THE PT SLEEPING IN BED, EASILY AROUSABLE BUT DRIFTS BACK OFF. DOES NOT FOLLOW COMMANDS. MOVES BUE BUT NO MOVEMENT OF BLE NOTED. PT IS IN A SR/ST WITHOUT ECTOPY PER THE RIVET THROWER. PT IS ON A 4LNC WITH AN O2 SAT OF 92%. RAISSA BS DIMINISHED WITH RARE INSPIRATORY WHEEZE NOTED IN THE RAISSA UPPER LOBES. ABD IS SOFT WITH A NORMOACTIVE BOWEL SOUNDS. KAOFEED TUBE IN PLACE TO THE R NARE WITH GLUCERNA INFUSING AT 60ML/HR(GOAL RATE) WITH 95ML H2O FLUSHES Q4H. SIMMONS IN PLACE DRAINING CLEAR YELLOW URINE. LOYDA SINGLE LUMEN PICC WITH 55 1/2NS INFUSING AT 75ML/HR PER MD ORDER.
--- NOTE | 2016-03-23 09:13 | PN- Infect Dx ---
Subjective Subjective: Afebrile. She apparently was more responsive yesterday, more verbal and recognizing family members. Objective Last 24 Hrs of Vital Signs/I&O Vital Signs Date Time Temp Pulse Resp B/P Pulse O2 O2 Flow FiO2 Ox Delivery Rate 03/23 0620 98 20 171/90 03/23 0400 93 Nasal 4.0L Cannula 03/23 0000 93 Nasal 4.0L Cannula 03/23 0000 98.4 78 26 140/60 93 Nasal 4.0L Cannula 03/22 2000 93 Nasal 4.0L Cannula 03/22 1700 88 180/90 03/22 1600 96 Nasal 4.0L Cannula 03/22 1600 98.0 68 20 168/0 98 Nasal 4.0L Cannula 03/22 1200 96 Nasal 4.0L Cannula 03/22 1000 80 150/80 Intake & Output 03/23 1600 03/23 0800 03/23 0000 Intake Total 1270 1270 Output Total 1040 1300 Balance 230 -30 Intake, IV 600 600 Intake, Tube 480 480 Feeding Intake, Tube 190 190 Irrigant Output, Urine 1040 1300 Physical Exam Other Physical Findings: She is responsive to voice and does respond to questions with monosyllabic answers, but does not clearly following commands. Neck is less resistant to flexion Lungs scattered rhonchi Heart regular rhythm with a loud 3/6 systolic murmur Abdomen is soft, nontender with positive bowel sounds Extremities no cyanosis, clubbing or edema; PICC in the right upper extremity in place Neuro without obvious focality Dominguez catheter remains in place Results Last 24 Hours of Lab Results: Laboratory Tests 03/23 0353 Chemistry Sodium (137 - 145 mmol/L) 137 Potassium (3.5 - 5.1 mmol/L) 4.1 Chloride (98 - 107 mmol/L) 99 Carbon Dioxide (22 - 30 mmol/L) 29 Anion Gap (5 - 16) 10 BUN (7 - 17 mg/dL) 21 H Creatinine (0.5 - 1.0 mg/dL) 0.6 Estimated GFR (>60 ml/min) > 60 Glucose (65 - 99 mg/dL) 338 H Calcium (8.4 - 10.2 mg/dL) 8.8 Phosphorus (2.5 - 4.5 mg/dL) 4.2 Magnesium (1.6 - 2.3 mg/dL) 1.7 Total Bilirubin (0.2 - 1.3 mg/dL) 0.5 AST (14 - 36 U/L) 24 ALT (9 - 52 U/L) 43 Albumin (3.5 - 5.0 g/dL) 2.9 L Hematology CBC w Diff NO MAN DIFF REQ WBC (4.8 - 10.8 /CUMM) 16.6 H RBC (4.20 - 5.40 /CUMM) 4.31 Hgb (12.0 - 16.0 G/DL) 12.4 Hct (37 - 47 %) 37.3 MCV (81.0 - 99.0 FL) 86.6 MCH (27.0 - 31.0 PG) 28.7 RDW (11.5 - 14.5 %) 13.9 Plt Count (130 - 400 /CUMM) 266 MPV (7.4 - 10.4 FL) 9.3 Gran % (42.2 - 75.2 %) 79.7 H Lymphocytes % (20.5 - 51.1 %) 10.8 L Monocytes % (1.7 - 9.3 %) 9.0 Eosinophils % (0 - 5 %) 0.3 Basophils % (0.0 - 2.0 %) 0.2 Absolute Granulocytes (1.4 - 6.5 /CUMM) 13.2 H Absolute Lymphocytes (1.2 - 3.4 /CUMM) 1.8 Absolute Monocytes (0.10 - 0.60 /CUMM) 1.5 H Absolute Eosinophils (0.0 - 0.7 /CUMM) 0.1 Absolute Basophils (0.0 - 0.2 /CUMM) 0 PUBS MCHC (33.0 - 37.0 G/DL) 33.1 Last 24 Hours of [place] Results: No recent cultures Recent Imaging Studies: Chest x-ray March 21, personally reviewed, reveals stable patchy opacities in the right greater than left lungs Assessment/Plan Impression: Some improvement with patient reportedly more alert and appropriate, though presently she is minimally verbal and not following commands. She remains afebrile, now off steroids, with white blood cell count increased today, possibly still as a result of the recent steroids, on Ceftriaxone now Day 6 of treatment for pneumococcal meningitis/sepsis secondary to otitis media, which, according to ENT, has improved. She does have evidence on CT scan of destruction of the petrous portion of the left temporal bone, with air in the left temporal lobe, and this does require follow-up. Her respiratory status is relatively stable status post presumed aspiration with chest x-ray unchanged. The repeat CT was unable to be done secondary to her agitation, but this should be reattempted to rule out complications of meningitis, including infarct, hydrocephalus and lateral sinus thrombosis. Her heart murmur, not previously appreciated, raises concern for endocarditis, though her echocardiogram on admission was negative. Suggestion: 1. Repeat CT of the head with IV contrast, with MRI if/when feasible if CT is negative 2. Repeat Echocardiogram 3. Repeat blood cultures 2 4. Repeat urine culture 5. Continue Ceftriaxone
--- NOTE | 2016-03-23 09:29 | NUR ---
PT HAVING A BEDSIDE ECHO PERFORMED.
--- NOTE | 2016-03-23 10:11 | PN- CRCU ---
Subjective HPI/Critical Care Issues: The patient was awake and alert yesterday afternoon and speaking with her family coherently. Currently, she is difficult to arouse and not following commands. She is currently afebrile. Her white blood cell count is fluctuating noting that her level is now at 16.6. Her blood pressure has improved with IV hydralazine. She is tolerating tube feeds well. She still has not had a bowel movement. Objective Current Medications: Current Medications Sig/Garrick Start time Last Medication Dose Route Stop Time Status Admin Acetaminophen 1,000 MG Q6-PRN PRN 03/17 1630 AC 03/20 N/A 1 UNIT IV 1552 Bisacodyl 10 MG ONCE ONE 03/22 1645 DC 03/22 AL 03/22 1646 1857 Ceftriaxone Sodium 2,000 MG Q12H 03/17 1515 AC 03/23 IV 0248 Dextrose/Sodium 1,000 ML Q13H 03/22 0615 03/23 Chloride IV 0845 Hydralazine HCl 10 MG Q8 03/22 1614 03/23 IV 0620 Insulin Human Regular 0 Q6 03/17 1800 AC 03/23 SC 0622 Levothyroxine Sodium 12.5 MCG DAILY 03/19 1000 AC 03/22 IV 1601 Lorazepam 1 MG Q2 HRS NEEDED PRN 03/17 2100 AC 03/18 IV 0639 Losartan Potassium 100 MG DAILY 03/20 2345 AC 03/22 PO 1000 Pantoprazole Sodium 40 MG DAILY 03/18 1000 AC 03/22 IV 1000 Vital Signs & I&O Last 24 Hrs of Vitals and I&O: Vital Signs Date Time Temp Pulse Resp B/P Pulse O2 O2 Flow FiO2 Ox Delivery Rate 03/23 0620 98 20 171/90 03/23 0400 93 Nasal 4.0L Cannula 03/23 0000 93 Nasal 4.0L Cannula 03/23 0000 98.4 78 26 140/60 93 Nasal 4.0L Cannula 03/22 2000 93 Nasal 4.0L Cannula 03/22 1700 88 180/90 03/22 1600 96 Nasal 4.0L Cannula 03/22 1600 98.0 68 20 168/0 98 Nasal 4.0L Cannula 03/22 1200 96 Nasal 4.0L Cannula Intake & Output 03/23 1600 03/23 0800 03/23 0000 Intake Total 1270 1270 Output Total 1040 1300 Balance 230 -30 Intake, IV 600 600 Intake, Tube 480 480 Feeding Intake, Tube 190 190 Irrigant Output, Urine 1040 1300 Exam General Appearance: sedated, lethargic, mild distress Head: atraumatic, normal appearance Neck: limited range of motion Respiratory: chest non-tender, lungs clear, accessory muscle use Cardiovascular: S1 and S2 heard, positive systolic murmur Gastrointestinal: normal bowel sounds, soft, non-tender Extremities: no edema Results Last 24 Hrs of Lab Results: Laboratory Tests 03/23/16 0353: Anion Gap 10, Estimated GFR > 60, Glucose 338 H, Calcium 8.8, Phosphorus 4.2, Magnesium 1.7, Total Bilirubin 0.5, AST 24, ALT 43, Albumin 2.9 L, CBC w Diff NO MAN DIFF REQ, RBC 4.31, MCV 86.6, MCH 28.7, RDW 13.9, MPV 9.3, Gran % 79.7 H , Lymphocytes % 10.8 L, Monocytes % 9.0, Eosinophils % 0.3, Basophils % 0.2, Absolute Granulocytes 13.2 H, Absolute Lymphocytes 1.8, Absolute Monocytes 1.5 H, Absolute Eosinophils 0.1, Absolute Basophils 0, PUBS MCHC 33.1 Impression/Plan Impression/Plan Impression/Plan: 1. Pneumococcal meningitis and sepsis. The patient has ongoing acute changes in mental status which remains a significant concern. 2. Respiratory failure related to aspiration with an increased right basilar opacity. 3. Malnutrition. 4. Hypertension - improved with IV hydralazine. 5. Constipation. 6. New systolic murmur, rule out etiology. Recommendations: * Check a head CT with IV contrast. * Continue IV hydralazine with holding parameters to avoid dropping BP dramatically. * We will follow ID recommendations including checking an echocardiogram, her cultures, urine culture and continuation of ceftriaxone. * Continue tube feeds. * Fleets enema today. * Maintain the patient on strict aspiration precautions. * Alps for DVT prophylaxis. No subcutaneous heparin considering possible nondisplaced left temporal bone fracture. Will need to discuss this further with neurology. * Continue all current supportive care. * The patient's family was updated at the bedside.
--- NOTE | 2016-03-23 11:50 | CT SCAN REPORT ---
EXAMINATION: CT HEAD AND IAC WITHOUT AND WITH CONTRAST CLINICAL INFORMATION: Being treated for meningitis. Question mastoiditis. COMPARISON: 03/17/2016. TECHNIQUE: 5 mm thin axial images of brain with and without contrast and 0.625 and 10 axial images of mastoid sinuses were obtained following IV 100 mL Optiray 320. DLP: 1754 mGy-cm. FINDINGS: BRAIN: There is no acute intra-axial, extra-axial bleed, masses or midline shift. Postcontrast there is no enhancing mass or mass effect. Previously seen several foci of pneumocephalus in the left temporal lobe has resolved. The lateral ventricles are symmetrical and normal. No midline shift seen. Bone windows reveal no calvarial abnormality. The paranasal sinuses are well-aerated. There is partial opacification of left mastoid sinus. IAC: There is complete opacification of left mastoid sinus with soft tissue density. The soft tissue extends into the aditus antrum superiorly and anteriorly into the middle ear completely opacifying the entire left middle ear. The middle ear ossicles are symmetrical and intact. No lytic process seen involving the left middle ear ossicles. There is inward retraction of the tympanic membrane but no soft tissue abnormality seen in the external auditory canal. The soft tissues surrounding the mastoid sinus are intact. The medial and the lateral antonio of the mastoid sinuses are intact. There is normal symmetry of bilateral internal auditory canal, semicircular canals and the cochlea. On the axial images the petrous bone and apex appears intact. The jugular and the carotid artery are patent. Carotid canal and jugular foramina are intact. Bilateral TM joints are intact as well. IMPRESSION: No acute intracranial process seen. 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 There is no soft tissue mass or collection seen along the left anterior petrous bone projecting into the temporal lobe. Previously seen left temporal lobe pneumocephalus has resolved.
--- NOTE | 2016-03-23 12:30 | NUR ---
PT WENT TO CT SCAN FOR A SCAN OF THE HEAD AND AUDITORY CANALS WITHIV CONTRAST AT 1040. UPON TRANSFERRING THE PT FROM THE STRETCHER TO THE CT TABLE SIMMONS WAS PULLED OUT. UPON RETURN TO THE CRCU A NEW #18 SIMMONS WAS PLACED.
--- NOTE | 2016-03-23 13:56 | PN- Resident CRCU ---
Subjective HPI/CRCU Issues: Patient did ICU for: Strep pneumococcal meningitis. Overnight patient has been afebrile with heart rate between 74 and 100, respiratory rate between 18 and 24, blood pressure between 138 systolic and 162 systolic. She is satting well on 4 L nasal cannula. Patient was a little tired this a.m. and not able to answer questions as well as yesterday. She did however, open her eyes and showed no signs of agitation. Objective Vital Signs & I&O Last 8 Hrs of Vitals and I&O: Vital Signs Date Time Temp Pulse Resp B/P Pulse O2 O2 Flow FiO2 Ox Delivery Rate 03/23 1200 95 Nasal 4.0L Cannula 03/23 1021 97.6 101 20 148/69 03/23 0800 92 Nasal 4.0L Cannula 03/23 0800 97.6 93 24 140/80 92 Nasal 4.0L Cannula 03/23 0620 98 20 171/90 03/23 0400 93 Nasal 4.0L Cannula 03/23 0000 93 Nasal 4.0L Cannula 03/23 0000 98.4 78 26 140/60 93 Nasal 4.0L Cannula 03/22 2000 93 Nasal 4.0L Cannula 03/22 1700 88 180/90 03/22 1600 96 Nasal 4.0L Cannula 03/22 1600 98.0 68 20 168/0 98 Nasal 4.0L Cannula Intake & Output 03/23 1600 03/23 0800 03/23 0000 Intake Total 1270 1270 Output Total 1040 1300 Balance 230 -30 Intake, IV 600 600 Intake, Tube 480 480 Feeding Intake, Tube 190 190 Irrigant Output, Urine 1040 1300 Exam General Appearance: well developed/nourished, no apparent distress, awake, comfortable Head: atraumatic, normal appearance Ears, Nose, Throat: normal pharynx, normal ENT inspection Neck: normal inspection Respiratory: normal breath sounds, chest non-tender Cardiovascular: regular rate/rhythm, systolic murmur Gastrointestinal: soft, non-tender Extremities: normal inspection Nutrition Nutrition: tube feeding Current Medications: Current Medications Sig/Garrick Start time Last Medication Dose Route Stop Time Status Admin Acetaminophen 1,000 MG Q6-PRN PRN 03/17 1630 AC 03/20 N/A 1 UNIT IV 1552 Amlodipine Besylate 2.5 MG DAILY 03/23 1315 AC PO Bisacodyl 10 MG ONCE ONE 03/22 1645 DC 03/22 PA 03/22 1646 1857 Ceftriaxone Sodium 2,000 MG Q12H 03/17 1515 AC 03/23 IV 0248 Dextrose/Sodium 1,000 ML Q13H 03/22 0615 AC 03/23 Chloride IV 0845 Hydralazine HCl 10 MG Q8 PRN 03/23 1315 AC IV Hydralazine HCl 10 MG Q8 03/22 1614 DC 03/23 IV 0620 Insulin Human Regular 0 Q6 03/17 1800 AC 03/23 SC 1216 Levothyroxine Sodium 12.5 MCG DAILY 03/19 1000 AC 03/23 IV 1022 Lorazepam 1 MG Q2 HRS NEEDED PRN 03/17 2100 AC 03/18 IV 0639 Losartan Potassium 100 MG DAILY 03/20 2345 AC 03/23 PO 1021 Pantoprazole Sodium 40 MG DAILY 03/18 1000 AC 03/23 IV 1021 Sodium Phosphate 1 UNIT ONCE ONE 03/23 1330 DC PA 03/23 1331 Antibiotics Antibiotic: ceftriaxone Impression/Plan Impression/Problem List Impression: This is a 70 year old female with PMH of hypotension, hyperlipidemia, hypothyroidism DM who came was brought to hospital after being found unresponsive. She had one day of otalgia and difficulty hearing. Found down and unresponsive, subsequently brought to . In ED was found to have Tmax 102, AMS/ agitation, CT with pneumocephalus in temporal lobe, and opacification of mastoid air cells. Due to concern for bacterial meningitis 2/2 otitis she was admitted to ICU. PLAN Respiratory: STABLE. Today patient is satting well on 4L NC. Of note, during admission fluoro-guided LP by IR pt had an episode of emesis and likely aspirated, was put on BiPAP. CXR showed corresponding suspicious opacity. Repeat CXR shows small l. pleural effusion, with R>L opacity. * Con't bipap PRN if NC not adequate to maintain sats > 92. * TRC nebs * Aspiration precautions Neuro/ID: 1. Step Pneumo Meningitis: Initially patient's CSF shows 20,500 white blood cell , 611 red blood cell, less than 20 glucose, total protein over 600. Her blood cultures 2, CSF culture, and CSF Gram stain showed positive for strep pneumo. Finished her four day course of Decadron. Pt off droplet precautions. Today she has new 3/6 systolic murmur that was not appreciated previously. Her Echo on admission was negative for valvular vegetation. However, given that she had strep pneumo bacteremia and new onset murmur there is concern for valvular seeding. Her wbc today at 16.6 which is slightly elevated from yesterday. * Patient was empirically started on vancomycin, ceftriaxone, and ampicillin. Have discontinued Ampicillin on 03/18; d/c Vanco on 03/19 as pt is growing Strep sensitive to Ceftriaxone (day 7). * CT Head with IV contrast TODAY * Repeat BCX * Repeat Ucx * Repeat Echo 2. Treating for aspiration PNA; see respiratory for full details. CVS: Patient has history of diabetes, hypertension. Hemodynamically stable. We will continue to monitor and keep within normal limits. Her BP goes up to 160s- 170s; She was started on IV Hydralazine 10mg Q8. Today, we added Amlodipine 2.5 to her Cozaar 100mg (which she was previously taking) and made Hydralazine PRN for BP>160. * Hydralazine PRN * Con't Cozaar * Start Amlodipine 2.5 daily Heme/Onc: Stable. Will con't monitor. Msk: moving all extremeties spontaneously. Stable. Will Con't monitor. GI: placed Dobbhoff on 03/20. After placement was verified via abdominal x-ray, we started tube feeds. * RISS * Tube feeds * Protonix * Fleet enema today Con't Synthroid. FULL CODE NPO ALPS DVT PPX Problem List: 1. Meningitis 2. Sepsis 3. Altered mental state 4. Lactic acidosis Pain Ratin Tomorrow's Labs & Rationales: cbc icu Plan DVT/Prophylaxis: mechanical
[2016-03-23 16:00] VITALS: BP 132/60
--- NOTE | 2016-03-23 18:00 | NUR ---
PT GIVEN A FLEETS ENEMA AT 1500 WHICH SHE WAS UNABLE TO RETAIN FOR ANY AMOUNT OF TIME. TUBE FEEDING BOTTLE NOTED TO BE JUST ABOUT EMPTY, DIETARY NOTIFIED A NEW BOTTLE WAS NEEDED. DIETARY REMINDED AGAIN AT 1730-TUBE FEED REMAINED OFF THE ENTIRE TIME. NEW BOTTLE AND SET UP HUNG AT 1800. PT WAS INCONTINENT OF A SMALL AMOUNT OF LOOSE BROWN STOOL. PERICARE PERFORMED AND THE PT WAS REPOSITIONED TO SEMI-CORDERO'S POSITION.
[2016-03-24] VITALS: BP 132/80
--- NOTE | 2016-03-24 03:27 | NUR ---
PT NOTED TO HAVE 2 MIN SEIZURE, JERKING OF EXTREMITIES. MD HAGANR TO BEDSIDE. 1MG ATIVN IVP. SEIZURE ENDED PRIOR TO ADMIN. HR UP TO 120 ST. O2 SAT 95%. AIRWAY KEPT PATENT. PUPILS SLUGGISH AND REACTIVE, EQUAL. MENTAL STATUS AT BASELINE, NOT FOLLOWING COMMANDS, IS OPENING EYES HOWEVER. WILL CONT TO MONITOR.
--- NOTE | 2016-03-24 03:43 | Event Note ---
Event Note Event Note: Around 2:30 AM, nursing staff noted that patient had a seizure with jerking of extremities that lasted for 2 minutes. Her heart rate had increased to 120s during episode. Oxygen saturation was 95%. By the time patient was seen at bedside, seizure had already stopped. 1 mg of IV Ativan was administered. Airway was patent. Pupils were sluggish but reactive to light. Patient was opening her eyes but not following commands, but this is baseline for patient. CT Head was performed which came back negative for acute intracranial injury. Patient's family was made aware. Will continue to monitor.
--- NOTE | 2016-03-24 04:07 | CT SCAN REPORT ---
EXAMINATION: CT HEAD WITHOUT CONTRAST CLINICAL INFORMATION: Seizure. COMPARISON: 03/23/2016. TECHNIQUE: Contiguous axial images of the brain were obtained without IV contrast. DLP: 529 mGy-cm. FINDINGS: There are no pathologic extra-axial fluid collections. The lateral, third, fourth ventricles are nondilated and concordant with the appearance of the sulci. There is no evidence for acute intraparenchymal hemorrhage or infarct. There is neither mass nor mass effect. There is no shift of midline structures. The paranasal sinuses are clear. There is persistent opacification to the left mastoid. There are no osseous lesions. IMPRESSION: No evidence for acute intracranial injury. Persistent left mastoid opacification.
[2016-03-24 04:33] LABS: ABSOLUTE BASOPHIL COUNT 0 /CUMM (0.0-0.2); ABSOLUTE EOSINOPHIL COUNT 0.2 /CUMM (0.0-0.7); ABSOLUTE GRANULOCYTE CT 15.3 /CUMM (1.4-6.5); ABSOLUTE MONOCYTE COUNT 0.6 /CUMM (0.10-0.60); BASOPHIL % 0 % (0.0-2.0); EOSINOPHIL % 0.8 % (0-5); GRANULOCYTE % 84.6 % (42.2-75.2); HEMATOCRIT 37.1 % (37-47); MEAN CORPUSCULAR HGB 28.9 PG (27.0-31.0); MEAN CORPUSCULAR HGB CONC 33.3 G/DL (33.0-37.0); MEAN CORPUSCULAR VOLUME 86.6 FL (81.0-99.0); MEAN PLATELET VOLUME 8.8 FL (7.4-10.4); PLATELET COUNT 254 /CUMM (130-400); RED BLOOD CELL CT 4.28 /CUMM (4.20-5.40); WHITE BLOOD CELL COUNT 18.1 /CUMM (4.8-10.8)
[2016-03-24 08:00] VITALS: BP 126/78
--- NOTE | 2016-03-24 08:09 | ECHOCARDIOGRAM REPORT ---
SOLOMON PEREZ Age: 70 : 1945 Gender: F Exam Date: 03/23/2016 09:16 Exam Location: [facility] Ht (in): 64 Wt (lb): 186 BSA: 1.98 BP: 171 / 90 Ordering Physician: LIN PENALOZA MD Referring Physician: LIN PENALOZA MD Technologist: Shreya Dominguez NICOLETTE Room Number: 112 Indications: New Systolic Murmur Rhythm: Sinus Technical Quality: technically limited FINDINGS Left Ventricle Normal left ventricular size with mild left ventricular hypertrophy. Normal systolic function with no obvious regional wall motion abnormalities. Diastolic filling pattern is consistent with impaired LV relaxation. The ejection fraction is visually estimated at 75%. Right Ventricle The right ventricle is normal in size and function. Right Atrium The right atrium is normal in size. Left Atrium The left atrium is normal in size. The interatrial septum is intact. Mitral Valve The mitral valve demonstrates severe annular calcification with mild stenosis. There is mild mitral regurgitation. Aortic Valve Mildly thickened aortic valve without significant sclerosis. Mild stenosis is measured. There is no aortic regurgitation. Tricuspid Valve The tricuspid valve is normal in structure and function. There is trace tricuspid regurgitation. Pulmonary artery systolic pressure is normal. Pulmonic Valve Structurally normal pulmonic valve. There is no pulmonic regurgitation. Pericardium Normal pericardium without effusion. No pleural effusion. Great Vessels Normal aortic root dimension. The aortic arch and great vessels are well seen and are normal. CONCLUSIONS 1. Normal EF of 75% with impaired LV relaxation. 2. Mild left ventricular hypertrophy. 3. Severely calcified mitral annulus with mild mitral stenosis. Mild mitral regurgitation. 4. Trace tricuspid regurgitation. 5. Mild aortic stenosis. Cezar Bolivar M.D. (Electronically Signed) Final Date: 24 March 2016 08:08 MEASUREMENTS (Male / Female) Normal Values 2D ECHO LV Diastolic Diameter PLAX 3.0 cm 4.2 - 5.9 / 3.9 - 5.3 cm LV Systolic Diameter PLAX 1.8 cm 2.1 - 4.0 cm LV Fractional Shortening PLAX 40.0 % 25 - 46 % LV Ejection Fraction 2D Teich 72.2 % IVS Diastolic Thickness 1.3 cm LVPW Diastolic Thickness 1.2 cm LV Relative Wall Thickness 0.8 RV Internal Dim ED PLAX 2.6 cm 1.9 - 3.8 cm LVOT Diameter 1.8 cm Aortic Root Diameter 3.0 cm LA Systolic Diameter LX 3.1 cm 3.0 - 4.0 / 2.7 - 3.8 cm LA Volume 41.0 cm 18 - 58 / 22 - 52 cm Ascending Aorta Diameter 2.7 cm DOPPLER AV Peak Velocity 246.0 cm/s AV Peak Gradient 24.2 mmHg AV Mean Velocity 177.0 cm/s AV Mean Gradient 15.0 mmHg AV Velocity Time Integral 33.8 cm MV Peak Velocity 230.0 cm/s MV Peak Gradient 21.2 mmHg MV Mean Velocity 128.0 cm/s MV Mean Gradient 8.0 mmHg Mitral E Point Velocity 109.0 cm/s Mitral A Point Velocity 194.0 cm/s Mitral E to A Ratio 0.6 MV PHT Velocity 128.0 cm/s MV Deceleration [place] 438.0 cm/s MV Pressure Half Time 87.7 ms MV Area PHT 2.5 cm MV Deceleration Time 320.0 ms TR Peak Velocity 261.0 cm/s TR Peak Gradient 27.2 mmHg Right Atrial Pressure 5.0 mmHg Pulmonary Artery Systolic Pressu 32.2 mmHg Right Ventricular Systolic Press 32.2 mmHg LV E' Lateral Velocity 6.7 cm/s Mitral E to LV E' Lateral Ratio 16.3 LV E' Septal Velocity 9.0 cm/s Mitral E to LV E' Septal Ratio 12.1
--- NOTE | 2016-03-24 08:26 | NUR ---
0800: RECEIVED PT IN BED. SLEEPING, DROWSY/AROUSABLE. NOT FOLLOWING COMMANDS, PUPILS SLUGGISH BUT EQUAL. +PULSES. PT DIAPHORETIC, TEMP 96.6 VIA TEMPORAL ARTERY. NSR ON MONITOR. B/P STABLE. ON 2L NC. ISP/EXP WHEEZE NOTED. SAT 94%. ABDOMEN D/S +BS. SIMMONS IN PLACE DRAINING CLEAR YELLOW URINE. KO FEED TUBE TO RIGHT NOSTRIL, GLUCERNA 1.2CAL RUNNING AT GOAL OF 60ML/HR. BLE EDEMA TRACE. SKIN OTHERWISE INTACT. AT BEDSIDE, SITTER AT BEDSIDE TO PREVENT PT FROM PULLING AT KO FEED TUBE. LOYDA PICC IN PLACE WITH D5 1/2NS @ 75 RUNNING. WILL MONITOR.
--- NOTE | 2016-03-24 09:56 | PN- CRCU ---
Subjective HPI/Critical Care Issues: Overnight events noted. The patient had a seizure for approximately 2 minutes last night. She was given Ativan overnight for her seizure. This morning, the patient remains sedated and is not responding to external stimuli as well as she had been. 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 The pneumocephalus less has resolved. A repeat CT scan of the head done after the seizure showed no acute intracranial injury. Objective Current Medications: Current Medications Sig/Garrick Start time Last Medication Dose Route Stop Time Status Admin Acetaminophen 1,000 MG Q6-PRN PRN 03/17 1630 AC 03/20 N/A 1 UNIT IV 1552 Amlodipine Besylate 2.5 MG DAILY 03/23 1315 AC 03/24 PO 0909 Ceftriaxone Sodium 2,000 MG Q12H 03/17 1515 AC 03/24 IV 03/28 1100 0408 Dextrose/Sodium 1,000 ML Q13H 03/22 0615 AC 03/24 Chloride IV 0018 Hydralazine HCl 10 MG Q8 PRN 03/23 1315 AC IV Hydralazine HCl 10 MG Q8 03/22 1614 DC 03/23 IV 0620 Insulin Human Regular 0 Q6 03/17 1800 AC 03/24 SC 0600 Levothyroxine Sodium 12.5 MCG DAILY 03/19 1000 AC 03/24 IV 0909 Lorazepam 1 MG ONE ONE 03/24 0345 DC 03/24 IV 03/24 0346 0340 Lorazepam 1 MG Q2 HRS NEEDED PRN 03/17 2100 AC 03/18 IV 0639 Losartan Potassium 100 MG DAILY 03/20 2345 AC 03/24 PO 0909 Pantoprazole Sodium 40 MG DAILY 03/18 1000 AC 03/24 IV 0909 Sodium Phosphate 1 UNIT ONCE ONE 03/23 1330 DC 03/23 DE 03/23 1331 1425 Vital Signs & I&O Last 24 Hrs of Vitals and I&O: Vital Signs Date Time Temp Pulse Resp B/P Pulse O2 O2 Flow FiO2 Ox Delivery Rate 03/24 0909 88 124/80 03/24 0909 88 124/80 03/24 0800 Nasal 2.0L Cannula 03/24 0800 96.6 98 22 126/78 94 Nasal 2.0L Cannula 03/24 0400 96 Nasal 3.0L Cannula 03/24 0000 98.1 98 18 132/80 94 Nasal 4.0L Cannula 03/24 0000 94 Nasal 4.0L Cannula 03/23 1999 94 Nasal 4.0L Cannula 03/23 1600 94 Nasal 4.0L Cannula 03/23 1600 98.7 86 19 132/60 94 Nasal 4.0L Cannula 03/23 1425 99.0 89 20 140/77 03/23 1200 95 Nasal 4.0L Cannula 03/23 1021 97.6 101 20 148/69 Intake & Output 03/24 1600 03/24 0800 03/24 0000 Intake Total 1114 955 Output Total 650 630 Balance 464 325 Intake, IV 495 596 Intake, Oral 0 0 Intake, Tube 429 244 Feeding Intake, Tube 190 115 Irrigant Number 0 1 Bowel Movements Output, Urine 650 630 Patient 182 lb Weight Exam General Appearance: sedated, lethargic Head: atraumatic, normal appearance Neck: limited range of motion Respiratory: chest non-tender, lungs clear, accessory muscle use Cardiovascular: S1 and S2 heard, positive systolic murmur Gastrointestinal: normal bowel sounds, soft, non-tender Extremities: no edema Results Last 24 Hrs of Lab Results: Laboratory Tests 03/24/16 0415: Anion Gap 7, Estimated GFR > 60, Glucose 313 H, Calcium 8.8, Phosphorus 3.8, Magnesium 1.8, Total Bilirubin 0.7, AST 24, ALT 43, Albumin 2.9 L, CBC w Diff MAN DIFF ORDERED, RBC 4.28, MCV 86.6, MCH 28.9, RDW 14.0, MPV 8.8, Gran % 84.6 H, Lymphocytes % 11.0 L, Monocytes % 3.6, Eosinophils % 0.8, Basophils % 0 L, Absolute Granulocytes 15.3 H, Absolute Lymphocytes 2.0, Absolute Monocytes 0.6, Absolute Eosinophils 0.2, Absolute Basophils 0, Platelet Estimate ADEQUATE, Polychromasia 1+, Anisocytosis 1+, PUBS MCHC 33.3 Diagnostic Data CXR Findings: No evidence for acute intracranial injury. Persistent left mastoid opacification. Impression/Plan Impression/Plan Impression/Plan: 1. Pneumococcal meningitis and sepsis. The patient has ongoing acute changes in mental status which remains a significant concern. She had one generalized seizure last night. 2. Respiratory failure related to aspiration with an increased right basilar opacity. 3. Malnutrition. 4. Hypertension - improved. 5. Constipation. 6. New systolic murmur, rule out etiology. Recommendations: * Neurology consult called, start Keppra? * BP control - continue Cozaar and Norvasc. * Discontinue IV fluids. * Continue tube feeds with water flushes. * Maintain the patient on strict aspiration precautions. * Antibiotics as per ID - continue ceftriaxone. * PRN ativan if seizure recurs. * Start SQ heparin for DVT prophylaxis. * The patient's family was updated at the bedside. * Continue to monitor in the critical care unit.
--- NOTE | 2016-03-24 10:05 | PN- Infect Dx ---
Subjective Subjective: Afebrile. She had a seizure overnight with no further seizure activity reported since. She was overall less interactive yesterday than the previous day. Objective Last 24 Hrs of Vital Signs/I&O Vital Signs Date Time Temp Pulse Resp B/P Pulse O2 O2 Flow FiO2 Ox Delivery Rate 03/24 0909 88 124/80 03/24 0909 88 124/80 03/24 0800 Nasal 2.0L Cannula 03/24 0800 96.6 98 22 126/78 94 Nasal 2.0L Cannula 03/24 0400 96 Nasal 3.0L Cannula 03/24 0000 98.1 98 18 132/80 94 Nasal 4.0L Cannula 03/24 0000 94 Nasal 4.0L Cannula 03/23 2000 94 Nasal 4.0L Cannula 03/23 1600 94 Nasal 4.0L Cannula 03/23 1600 98.7 86 19 132/60 94 Nasal 4.0L Cannula 03/23 1425 99.0 89 20 140/77 03/23 1200 95 Nasal 4.0L Cannula 03/23 1021 97.6 101 20 148/69 Intake & Output 03/24 1600 03/24 0800 03/24 0000 Intake Total 1114 955 Output Total 650 630 Balance 464 325 Intake, IV 495 596 Intake, Oral 0 0 Intake, Tube 429 244 Feeding Intake, Tube 190 115 Irrigant Number 0 1 Bowel Movements Output, Urine 650 630 Patient 182 lb Weight Physical Exam Other Physical Findings: She is lethargic but responsive, with monosyllabic answers HEENT ulcerative lip lesions Neck resistant to flexion Lungs scattered rhonchi bilaterally Heart regular rhythm with a 2/6 systolic murmur Abdomen is soft, nontender with positive bowel sounds Extremities PICC in the right upper extremity with no inflammation at the site Neuro relatively flaccid upper extremities Dominguez catheter remains in place Results Last 24 Hours of Lab Results: Laboratory Tests 03/24 0415 Chemistry Sodium (137 - 145 mmol/L) 137 Potassium (3.5 - 5.1 mmol/L) 4.3 Chloride (98 - 107 mmol/L) 100 Carbon Dioxide (22 - 30 mmol/L) 29 Anion Gap (5 - 16) 7 BUN (7 - 17 mg/dL) 19 H Creatinine (0.5 - 1.0 mg/dL) 0.6 Estimated GFR (>60 ml/min) > 60 Glucose (65 - 99 mg/dL) 313 H Calcium (8.4 - 10.2 mg/dL) 8.8 Phosphorus (2.5 - 4.5 mg/dL) 3.8 Magnesium (1.6 - 2.3 mg/dL) 1.8 Total Bilirubin (0.2 - 1.3 mg/dL) 0.7 AST (14 - 36 U/L) 24 ALT (9 - 52 U/L) 43 Albumin (3.5 - 5.0 g/dL) 2.9 L Hematology CBC w Diff MAN DIFF ORDERED WBC (4.8 - 10.8 /CUMM) 18.1 H RBC (4.20 - 5.40 /CUMM) 4.28 Hgb (12.0 - 16.0 G/DL) 12.4 Hct (37 - 47 %) 37.1 MCV (81.0 - 99.0 FL) 86.6 MCH (27.0 - 31.0 PG) 28.9 RDW (11.5 - 14.5 %) 14.0 Plt Count (130 - 400 /CUMM) 254 MPV (7.4 - 10.4 FL) 8.8 Gran % (42.2 - 75.2 %) 84.6 H Lymphocytes % (20.5 - 51.1 %) 11.0 L Monocytes % (1.7 - 9.3 %) 3.6 Eosinophils % (0 - 5 %) 0.8 Basophils % (0.0 - 2.0 %) 0 L Absolute Granulocytes (1.4 - 6.5 /CUMM) 15.3 H Absolute Lymphocytes (1.2 - 3.4 /CUMM) 2.0 Absolute Monocytes (0.10 - 0.60 /CUMM) 0.6 Absolute Eosinophils (0.0 - 0.7 /CUMM) 0.2 Absolute Basophils (0.0 - 0.2 /CUMM) 0 Platelet Estimate (ADEQUATE) ADEQUATE Polychromasia 1+ Anisocytosis 1+ PUBS MCHC (33.0 - 37.0 G/DL) 33.3 Last 24 Hours of [place] Results: Blood cultures 2 March 23 negative Urine culture March 23 negative Recent Imaging Studies: CT of the head and internal auditory canals with and without contrast March 23 reveals resolution of the previously seen foci of pneumocephalus in the left temporal lobe, with complete opacification of the left mastoid sinus and the left middle ear Assessment/Plan Impression: Deterioration in her status with seizure activity, implying a persistent focus of infection, possibly ongoing meningitis despite now 1 week of Ceftriaxone for pneumococcal meningitis/sepsis, with her recent CT scan negative for evidence of any infarct or lateral sinus thrombosis, though an MRI would be preferable if able to be done, and with an apparently new murmur, raising concern for endocarditis, though her repeat transthoracic echocardiogram was negative. She remains afebrile off steroids, but her white blood cell count continues to increase, suggesting a new or persistent infection. Her respiratory status is stable status post presumed aspiration with recent chest x-ray unchanged. Suggestion: 1. Would repeat lumbar puncture 2. EEG 3. MRI of the head if able to be done 4. Neurology evaluation 5. Would pursue SAMUEL 6. Continue Ceftriaxone
--- NOTE | 2016-03-24 10:19 | NUR ---
TUBE FEED ON HOLD FOR SAMUEL.
--- NOTE | 2016-03-24 10:20 | NUR ---
1000: PT HAD AROUND A 10 SECOND SEIZURE DURING PICC LINE DRESSING CHANGE. MD NUGENT MADE AWARE. PT TO HAVE EEG THIS AFTERNOON, NO MEDICATION GIVEN.
--- NOTE | 2016-03-24 10:55 | NUR ---
CALLED INTO ROOM BY SITTER, PT'S RIGHT ARM NOTED TO BE TWITCHING. UPON HOLDING PT'S RIGHT HAND AND CALLING HER NAME PT'S ARM STOPPED MOVING AND PT OPENED HER EYES, AND SON AT BEDSIDE. MD NUGENT AND MD MONTALVO AWARE.
[2016-03-24 12:00] VITALS: BP 130/80
--- NOTE | 2016-03-24 12:36 | NUR ---
PT STARTED TO HAVE SEIZURE, RIGHT SIDE TREMORS. EYES OPEN AND SHAKING BACK AND FORTH. MD DOLL AT [facility]. SEIZURE LASTED LESS THANK 1 MINUTE. NO ATIVAN GIVEN AT THIS TIME. FAMILY REMAINS AT BEDSIDE.
--- NOTE | 2016-03-24 12:43 | NUR ---
B/P 112/74, PULSE 105, RESP 22, OXYGEN 95% ON 2L NC. PT HAD SMALL SEIZURE RIGHT ARM NOTED TO BE TWITCHING EYES OPEN AND WITH FIXED GAZE, 1MG IV ATIVAN GIVEN PER MD DOLL
--- NOTE | 2016-03-24 13:01 | NUR ---
EKG DONE AT THIS TIME.
--- NOTE | 2016-03-24 13:13 | NUR ---
NO SAMUEL PER DR SANDERSON [facility], TUBE FEED RESTARTED, STAT PT/INR DRAWN AT THIS TIME. PT TO BE NPO AT MIDNIGHT FOR POSSIBLE SAMUEL IN THE MORNING
--- NOTE | 2016-03-24 13:23 | Cons- Cardiology ---
General Information and HPI Consulting Request Date of Consult: 03/24/16 Requested By: Talisha AVILA MD Reason for Consult: Question endocarditis in a patient with pneumococcal meningitis. Source of Information: family, old records Exam Limitations: unable to give history History of Present Illness: The patient is a 70-year-old female who presented one week ago with change in mental status and unresponsiveness. She was eventually found to have pneumococcal meningitis with pneumococci grown in both the blood and cerebrospinal fluid. She has been under appropriate treatment. She has just recently started to have seizures. She still has some significant mental status changes. She is somewhat more lethargic today but has received some Ativan for her seizures. Her transthoracic echocardiogram has shown on 2 occasions no definite endocarditis, but she has significant calcification of her mitral annulus which might obscure small vegetations. However there are no large bulky vegetations which likely would have been seen on transthoracic echocardiogram. There is no significant past history of heart disease in this patient. Allergies/Medications Allergies: Coded Allergies: Sulfa (Sulfonamide Antibiotics) (Intermediate, TURNS RED 03/17/16) Home Med List: Aspirin (Ecotrin*) 81 MG TABLET.DR 1 TAB PO DAILY HEART HEALTH (Reported) Atorvastatin Calcium 10 MG TABLET 1 TAB PO DAILY CHOLESTEROL (Reported) Insulin NPL/Insulin Lispro (Humalog Mix 75-25 Kwikpen) 100 UNIT/ML (75-25) INSULN.PEN DIABETES (Reported) Levothyroxine Sodium 25 MCG TABLET 1 TAB PO DAILY AC THYROID (Reported) Losartan Potassium 100 MG TABLET 1 TAB PO DAILY HEART (Reported) Metformin HCl 1,000 MG TABLET 1 TAB PO BID DIABETES (Reported) Review of Systems Review of Systems: Unable to be obtained Past History Travel History Traveled to [place] past 21 day No Medical History Blood Transfusion Hx: No Neurological: NONE EENT: NONE Cardiovascular: hypertension, hyperlipidemia Respiratory: NONE Gastrointestinal: NONE Hepatic: NONE Renal: NONE Musculoskeletal: NONE Psychiatric: NONE Endocrine: diabetes, hypothyroidism, obesity Blood Disorders: NONE 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 Home Services at Home: None Smoking Status: Unknown If Ever Smoked Functional Ability ADLs Independent: dressing, eating, toileting, bathing. Ambulation: independent IADLs Independent: shopping, housework, finances, food prep, telephone, transportation , medication admin. Exam & Diagnostic Data Vital Signs and I&O Vital Signs Date Time Temp Pulse Resp B/P Pulse O2 O2 Flow FiO2 Ox Delivery Rate 03/24 1200 Nasal 2.0L Cannula 03/24 1200 97.3 88 22 130/80 95 Nasal 2.0L Cannula 03/24 0909 88 124/80 03/24 0909 88 124/80 03/24 0800 Nasal 2.0L Cannula 03/24 0800 96.6 98 22 126/78 94 Nasal 2.0L Cannula 03/24 0400 96 Nasal 3.0L Cannula 03/24 0000 98.1 98 18 132/80 94 Nasal 4.0L Cannula 03/24 0000 94 Nasal 4.0L Cannula 03/23 2000 94 Nasal 4.0L Cannula 03/23 1600 94 Nasal 4.0L Cannula 03/23 1600 98.7 86 19 132/60 94 Nasal 4.0L Cannula 03/23 1425 99.0 89 20 140/77 Intake & Output 03/24 1600 03/24 0800 03/24 0000 03/23 1600 03/23 0800 03/23 0000 Intake Total 2504 417 6125 1270 1270 Output Total 097 593 0449 1040 1300 Balance 464 325 17 230 -30 Intake, IV 495 596 598 600 600 Intake, Oral 0 0 Intake, Other 115 Intake, Tube 429 244 379 480 480 Feeding Intake, Tube 190 115 190 190 Irrigant Number 0 1 1 Bowel Movements Output, Urine 686 025 7104 1040 1300 Patient 182 lb Weight Physical Exam: Lethargic and basically unresponsive late middle-aged female but she had just received some Ativan for seizure. HEENT exam grossly normal Neck veins not distended Carotids normal Chest Limited examination but good air entry Heart regular rhythm. Grade 2/6 holosystolic murmur at the left sternal border and apex Abdomen nontender Extremities no edema Labs/[place] Results: Laboratory Tests 03/24 03/24 1307 0415 Chemistry Sodium (137 - 145 mmol/L) 137 Potassium (3.5 - 5.1 mmol/L) 4.3 Chloride (98 - 107 mmol/L) 100 Carbon Dioxide (22 - 30 mmol/L) 29 Anion Gap (5 - 16) 7 BUN (7 - 17 mg/dL) 19 H Creatinine (0.5 - 1.0 mg/dL) 0.6 Estimated GFR (>60 ml/min) > 60 Glucose (65 - 99 mg/dL) 313 H Calcium (8.4 - 10.2 mg/dL) 8.8 Phosphorus (2.5 - 4.5 mg/dL) 3.8 Magnesium (1.6 - 2.3 mg/dL) 1.8 Total Bilirubin (0.2 - 1.3 mg/dL) 0.7 AST (14 - 36 U/L) 24 ALT (9 - 52 U/L) 43 Albumin (3.5 - 5.0 g/dL) 2.9 L Coagulation PT Pending INR Pending APTT Pending Hematology CBC w Diff MAN DIFF ORDERED WBC (4.8 - 10.8 /CUMM) 18.1 H RBC (4.20 - 5.40 /CUMM) 4.28 Hgb (12.0 - 16.0 G/DL) 12.4 Hct (37 - 47 %) 37.1 MCV (81.0 - 99.0 FL) 86.6 MCH (27.0 - 31.0 PG) 28.9 RDW (11.5 - 14.5 %) 14.0 Plt Count (130 - 400 /CUMM) 254 MPV (7.4 - 10.4 FL) 8.8 Gran % (42.2 - 75.2 %) 84.6 H Lymphocytes % (20.5 - 51.1 %) 11.0 L Monocytes % (1.7 - 9.3 %) 3.6 Eosinophils % (0 - 5 %) 0.8 Basophils % (0.0 - 2.0 %) 0 L Absolute Granulocytes (1.4 - 6.5 /CUMM) 15.3 H Absolute Lymphocytes (1.2 - 3.4 /CUMM) 2.0 Absolute Monocytes (0.10 - 0.60 /CUMM) 0.6 Absolute Eosinophils (0.0 - 0.7 /CUMM) 0.2 Absolute Basophils (0.0 - 0.2 /CUMM) 0 Platelet Estimate (ADEQUATE) ADEQUATE Polychromasia 1+ Anisocytosis 1+ PUBS MCHC (33.0 - 37.0 G/DL) 33.3 03/23 0353 Chemistry Sodium (137 - 145 mmol/L) 137 Potassium (3.5 - 5.1 mmol/L) 4.1 Chloride (98 - 107 mmol/L) 99 Carbon Dioxide (22 - 30 mmol/L) 29 Anion Gap (5 - 16) 10 BUN (7 - 17 mg/dL) 21 H Creatinine (0.5 - 1.0 mg/dL) 0.6 Estimated GFR (>60 ml/min) > 60 Glucose (65 - 99 mg/dL) 338 H Calcium (8.4 - 10.2 mg/dL) 8.8 Phosphorus (2.5 - 4.5 mg/dL) 4.2 Magnesium (1.6 - 2.3 mg/dL) 1.7 Total Bilirubin (0.2 - 1.3 mg/dL) 0.5 AST (14 - 36 U/L) 24 ALT (9 - 52 U/L) 43 Albumin (3.5 - 5.0 g/dL) 2.9 L Hematology CBC w Diff NO MAN DIFF REQ WBC (4.8 - 10.8 /CUMM) 16.6 H RBC (4.20 - 5.40 /CUMM) 4.31 Hgb (12.0 - 16.0 G/DL) 12.4 Hct (37 - 47 %) 37.3 MCV (81.0 - 99.0 FL) 86.6 MCH (27.0 - 31.0 PG) 28.7 RDW (11.5 - 14.5 %) 13.9 Plt Count (130 - 400 /CUMM) 266 MPV (7.4 - 10.4 FL) 9.3 Gran % (42.2 - 75.2 %) 79.7 H Lymphocytes % (20.5 - 51.1 %) 10.8 L Monocytes % (1.7 - 9.3 %) 9.0 Eosinophils % (0 - 5 %) 0.3 Basophils % (0.0 - 2.0 %) 0.2 Absolute Granulocytes (1.4 - 6.5 /CUMM) 13.2 H Absolute Lymphocytes (1.2 - 3.4 /CUMM) 1.8 Absolute Monocytes (0.10 - 0.60 /CUMM) 1.5 H Absolute Eosinophils (0.0 - 0.7 /CUMM) 0.1 Absolute Basophils (0.0 - 0.2 /CUMM) 0 PUBS MCHC (33.0 - 37.0 G/DL) 33.1 Diagnostic Data EKG Results EKGs have been reviewed and have all shown sinus rhythm with small inferior Q waves and no acute changes. CXR Results PATIENT: SOLOMON PEREZ PRESENT AGE: 70 PATIENT ACCOUNT NO: [id number] : 45 LOCATION: [facility] ORDERING PHYSICIAN: LIN PENALOZA MD SERVICE DATE: 03/21/16-0437 EXAM TYPE: RAD - XRY-PORTABLE CHEST XRAY EXAMINATION: XR PORTABLE CHEST CLINICAL INFORMATION: PICC placement. COMPARISON: 03/18/2016, abdominal x-ray from 03/20/2016 TECHNIQUE: Portable AP view of the chest was obtained. FINDINGS: Since the prior study there has been placement of a right-sided PICC whose tip terminates at the cavoatrial junction. The cardiomediastinal silhouette is stable given differences in technique. There remain patchy right-sided airspace and interstitial opacities as well as mild bilateral central pulmonary vascular prominence. A feeding tube is visualized which extends below the hemidiaphragm, though due to technique the tip is difficult to definitively visualize. There is no evidence of pneumothorax. There is minor blunting of the left costophrenic angle, similar to the prior. IMPRESSION: Interval placement of a right-sided PICC, with tip terminating at the cavoatrial junction. No pneumothorax. Stable patchy opacities in the right greater than left lungs and a small left pleural effusion. 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 <Electronically signed in Other Vendor System> SIGNED BY: ASHOK DELCID MD 03/21/16 1410 Other Results CONCLUSIONS 1. Normal EF of 75% with impaired LV relaxation. 2. Mild left ventricular hypertrophy. 3. Severely calcified mitral annulus with mild mitral stenosis. Mild mitral regurgitation. 4. Trace tricuspid regurgitation. 5. Mild aortic stenosis. Cezar Bolivar M.D. (Electronically Signed) Final Date: 24 March 2016 08:08 Assessment/Plan Assessment/Plan This patient presents with pneumococcal meningitis, now complicated by seizures. She has positive blood cultures for pneumococcus as well. She has a systolic murmur which is compatible with mitral regurgitation, which was seen on the transthoracic echocardiogram. She's had 2 transthoracic echoes which did not show definite evidence of endocarditis. I agree that a transesophageal echocardiogram would be useful in ruling out a nidus of infection, i.e. endocarditis. However, I believe the patient is too unstable to undergo a transesophageal echocardiogram at this time. I would recommend continuing her current treatment per infectious disease consultation. I will continue to follow her and when she is more stable from a neurologic and respiratory standpoint we will try to perform the transesophageal echocardiogram at that time. Consult Acknowledgment - Thank you for your consult request.
[2016-03-24 14:05] LABS: PT 14.3 SEC (9.4-12.5); PTT 30 SEC (25-37)
--- NOTE | 2016-03-24 14:23 | PN- Neurology ---
Subjective Subjective: SEIZURE hAD 2 OBSERVED SEIZURES; GENERALIZED LAST 1-2 MINUTES GIVEN ATIVAN STARTED LEVETIRACETAM REMAINS OBTUNDED Review of Systems: ros: NOT OBTAINABLE Objective Vital Signs and I&Os Vital Signs Date Time Temp Pulse Resp B/P Pulse O2 O2 Flow FiO2 Ox Delivery Rate 03/24 1200 Nasal 2.0L Cannula 03/24 1200 97.3 88 22 130/80 95 Nasal 2.0L Cannula 03/24 0909 88 124/80 03/24 0909 88 124/80 03/24 0800 Nasal 2.0L Cannula 03/24 0800 96.6 98 22 126/78 94 Nasal 2.0L Cannula 03/24 0400 96 Nasal 3.0L Cannula 03/24 0000 98.1 98 18 132/80 94 Nasal 4.0L Cannula 03/24 0000 94 Nasal 4.0L Cannula 03/23 2000 94 Nasal 4.0L Cannula 03/23 1600 94 Nasal 4.0L Cannula 03/23 1600 98.7 86 19 132/60 94 Nasal 4.0L Cannula 03/23 1425 99.0 89 20 140/77 Intake & Output 03/24 1600 03/24 0800 03/24 0000 03/23 1600 03/23 0800 03/23 0000 Intake Total 8989 014 8998 1270 1270 Output Total 524 141 1466 1040 1300 Balance 464 325 17 230 -30 Intake, IV 495 596 598 600 600 Intake, Oral 0 0 Intake, Other 115 Intake, Tube 429 244 379 480 480 Feeding Intake, Tube 190 115 190 190 Irrigant Number 0 1 1 Bowel Movements Output, Urine 356 849 9709 1040 1300 Patient 182 lb Weight SOMNOLENT UNABLE TO AROUSE PUPILS EQUAL; GAZE PREFERENCE TO RIGHT NO FACIAL WEAKNESS GRIMACES TO NOXIOUS STIMULI FLACCID EXTREMITIES DOES NOT WITDRAW TO NOXIOUS STIMULI Current Medications: Current Medications Sig/Garrick Start time Last Medication Dose Route Stop Time Status Admin Acetaminophen 1,000 MG Q6-PRN PRN 03/17 1630 AC 03/20 N/A 1 UNIT IV 1552 Amlodipine Besylate 2.5 MG DAILY 03/23 1315 AC 03/24 PO 0909 Ceftriaxone Sodium 2,000 MG Q12H 03/17 1515 AC 03/24 IV 03/28 1100 0408 Dextrose/Sodium 1,000 ML Q13H 03/22 0615 AC 03/24 Chloride IV 1317 Heparin Sodium 5,000 UNIT Q8 03/24 1045 DC (Porcine) SC Hydralazine HCl 10 MG Q8 PRN 03/23 1315 AC IV Insulin Human Regular 0 Q6 03/17 1800 AC 03/24 SC 1112 Levetiracetam 500 MG ONCE ONE 03/24 1345 DC Sodium Chloride 100 ML IV 03/24 1359 Levothyroxine Sodium 12.5 MCG DAILY 03/19 1000 AC 03/24 IV 0909 Lorazepam 1 MG ONE ONE 03/24 0345 DC 03/24 IV 03/24 0346 0340 Lorazepam 1 MG Q2 HRS NEEDED PRN 03/17 2100 AC 03/24 IV 1240 Losartan Potassium 100 MG DAILY 03/20 2345 AC 03/24 PO 0909 Pantoprazole Sodium 40 MG DAILY 03/18 1000 AC 03/24 IV 0909 Results Last 24 Hours of Lab Results: Laboratory Tests 03/24 03/24 1307 0415 Chemistry Sodium (137 - 145 mmol/L) 137 Potassium (3.5 - 5.1 mmol/L) 4.3 Chloride (98 - 107 mmol/L) 100 Carbon Dioxide (22 - 30 mmol/L) 29 Anion Gap (5 - 16) 7 BUN (7 - 17 mg/dL) 19 H Creatinine (0.5 - 1.0 mg/dL) 0.6 Estimated GFR (>60 ml/min) > 60 Glucose (65 - 99 mg/dL) 313 H Calcium (8.4 - 10.2 mg/dL) 8.8 Phosphorus (2.5 - 4.5 mg/dL) 3.8 Magnesium (1.6 - 2.3 mg/dL) 1.8 Total Bilirubin (0.2 - 1.3 mg/dL) 0.7 AST (14 - 36 U/L) 24 ALT (9 - 52 U/L) 43 Albumin (3.5 - 5.0 g/dL) 2.9 L Coagulation PT (9.4 - 12.5 SEC) 14.3 H INR (0.90 - 1.19) 1.37 H APTT (25 - 37 SEC) 30 Hematology CBC w Diff MAN DIFF ORDERED WBC (4.8 - 10.8 /CUMM) 18.1 H RBC (4.20 - 5.40 /CUMM) 4.28 Hgb (12.0 - 16.0 G/DL) 12.4 Hct (37 - 47 %) 37.1 MCV (81.0 - 99.0 FL) 86.6 MCH (27.0 - 31.0 PG) 28.9 RDW (11.5 - 14.5 %) 14.0 Plt Count (130 - 400 /CUMM) 254 MPV (7.4 - 10.4 FL) 8.8 Gran % (42.2 - 75.2 %) 84.6 H Lymphocytes % (20.5 - 51.1 %) 11.0 L Monocytes % (1.7 - 9.3 %) 3.6 Eosinophils % (0 - 5 %) 0.8 Basophils % (0.0 - 2.0 %) 0 L Absolute Granulocytes (1.4 - 6.5 /CUMM) 15.3 H Absolute Lymphocytes (1.2 - 3.4 /CUMM) 2.0 Absolute Monocytes (0.10 - 0.60 /CUMM) 0.6 Absolute Eosinophils (0.0 - 0.7 /CUMM) 0.2 Absolute Basophils (0.0 - 0.2 /CUMM) 0 Platelet Estimate (ADEQUATE) ADEQUATE Polychromasia 1+ Anisocytosis 1+ PUBS MCHC (33.0 - 37.0 G/DL) 33.3 Recent Imaging Studies: CT HEAD: INDINGS: There are no pathologic extra-axial fluid collections. The lateral, third, fourth ventricles are nondilated and concordant with the appearance of the sulci. There is no evidence for acute intraparenchymal hemorrhage or infarct. There is neither mass nor mass effect. There is no shift of midline structures. The paranasal sinuses are clear. There is persistent opacification to the left mastoid. There are no osseous lesions. IMPRESSION: No evidence for acute intracranial injury. Persistent left mastoid opacification. Assessment/Plan Assessment: SEIZURE, LIKELY RELATED TO MENINGITIS LESS LIKELY ANTIBIOTIC INDUCED Plan: LEVETIRACETAM 500 EVERY 12 HR EEG IF SEIZURE RECURRENT BOLUS 500MG AND INCREASE LEVETIRACETAM TO 1000 EVERY 12 HR
--- NOTE | 2016-03-24 15:33 | NUR ---
TUBE FEED ON HOLD AT THIS TIME FOR POSSIBLE LUMBAR PUNCTURE WITH ANESTHESIA. AWAITING CALL BACK FROM IR REGARDING PROCEDURE.
--- NOTE | 2016-03-24 15:59 | NUR ---
PT TO HAVE BEDSIDE LUMBAR PUNCTURE IF POSSIBLE BY DR GALEAS.
[2016-03-24 16:00] VITALS: BP 130/82
--- NOTE | 2016-03-24 17:32 | NUR ---
LUMBAR PUNCTURE COMPLETED. LABS BROUGHT TO LAB BY MD PENALOZA. BAND AID IN PLACE. PT PLACED FLAT ON BACK. PER MD KEEP PT LIKE THIS FOR 2 HOURS. TUBE FEED REMAINS ON HOLD PT IS LYING FLAT. EEG IN PROGRESS AT THIS TIME. FAMILY UPDATED.
--- NOTE | 2016-03-24 17:36 | Proc Note Internal Medicine ---
LIN PENALOZA 03/24/16 1733: Medicine Procedure Procedure Date: 03/24/16 Medical Procedure(s): lumbar puncture Pre-Operative Diagnosis: MENINGITIS Post-Operative Diagnosis: SAME Estimated Blood Loss: scant Anesthesia: local monitored anesthesi Procedure Findings: Procedure - Lumbar Puncture Indication - meningitis Anesthesia - local 1% lidocaine Informed consent was obtained from the patient's and son. The area was prepped and draped in the usual sterile fashion. Using landmarks, a 22 guage spinal needle was inserted in the L4-L5 innerspace. The stylet was removed. The opening pressure was not measured. Clear fluid slowly was collected in 4 sterile tubes labeled 1 through 4. Approximately 2cc of clear fluid was collected. The fluid was walked down to the lab and sent for routine studies including cell count, protein, glucose and culture. The patient tolerated the procedure well. There was no blood loss or hematoma. The procedure was entirely supervised by Dr. Galeas. BIBIANA GALEAS MD 03/25/16 1208: Medicine Procedure Procedure Findings: Agree with above, present and scrubbed during entire procedure. Patient tolerated well, no complications, specimens sent to lab as requested. Total additional time spent 40 minutes.
--- NOTE | 2016-03-24 18:54 | PN- Resident CRCU ---
Subjective HPI/CRCU Issues: Pt in ICU for: Strep pneumo meningitis Overnight pt had an episode of seizure (See event note) that lasted 2 min. Terminated but pt given ativan 1mg. Pt HR elevated to 192, she also had episodes of demetria down to 48. Pt seems less rousable this AM. Family states that she is less responsive to their commands. Objective Vital Signs & I&O Last 8 Hrs of Vitals and I&O: Intake & Output 03/24 1600 Intake Total 1272 Output Total 900 Balance 372 Intake, IV 742 Intake, Tube 285 Feeding Intake, Tube 245 Irrigant Number 0 Bowel Movements Output, Urine 900 Patient 82.554 kg Weight Exam General Appearance: well developed/nourished, lethargic Head: atraumatic, crusted dry mouth Neck: supple Respiratory: normal breath sounds, chest non-tender, no respiratory distress Cardiovascular: regular rate/rhythm Gastrointestinal: soft, non-tender Extremities: normal inspection, normal capillary refill Cranial Nerves: eyes lateralize to right side. she says "ouch" to painful stimuli but does not withdraw. Nutrition Nutrition: tube feeding Current Medications: Current Medications Sig/Garrick Start time Last Medication Dose Route Stop Time Status Admin Acetaminophen 1,000 MG Q6-PRN PRN 03/17 1630 AC 03/20 N/A 1 UNIT IV 1552 Amlodipine Besylate 2.5 MG DAILY 03/23 1315 AC 03/24 PO 0909 Ceftriaxone Sodium 2,000 MG Q12H 03/17 1515 AC 03/24 IV 03/28 1100 1518 Dextrose/Sodium 1,000 ML Q13H 03/22 0615 DC 03/24 Chloride IV 1317 Heparin Sodium 5,000 UNIT Q8 03/24 1045 DC (Porcine) SC Hydralazine HCl 10 MG Q8 PRN 03/23 1315 AC IV Insulin Human Regular 0 Q6 03/17 1800 AC 03/24 SC 1831 Levetiracetam 500 MG ONCE ONE 03/24 1345 DC 03/24 Sodium Chloride 100 ML IV 03/24 1359 1431 Levothyroxine Sodium 12.5 MCG DAILY 03/19 1000 AC 03/24 IV 0909 Lorazepam 1 MG ONCE ONE 03/24 1630 DC 03/24 IV 03/24 1631 1626 Lorazepam 1 MG ONE ONE 03/24 0345 DC 03/24 IV 03/24 0346 0340 Lorazepam 1 MG Q2 HRS NEEDED PRN 03/17 2100 AC 03/24 IV 1240 Losartan Potassium 100 MG DAILY 03/20 2345 AC 03/24 PO 0909 Pantoprazole Sodium 40 MG DAILY 03/18 1000 AC 03/24 IV 0909 Impression/Plan Impression/Problem List Impression: This is a 70 year old female with PMH of hypotension, hyperlipidemia, hypothyroidism DM who came was brought to hospital after being found unresponsive. She had one day of otalgia and difficulty hearing. Found down and unresponsive, subsequently brought to . In ED was found to have Tmax 102, AMS/ agitation, CT with pneumocephalus in temporal lobe, and opacification of mastoid air cells. Due to concern for bacterial meningitis 2/2 otitis she was admitted to ICU. PLAN Respiratory: STABLE. Today patient is satting well on 4L NC. Of note, during admission fluoro-guided LP by IR pt had an episode of emesis and likely aspirated, was put on BiPAP. CXR showed corresponding suspicious opacity. Repeat CXR shows small l. pleural effusion, with R>L opacity. * Con't NC * TRC nebs * Aspiration precautions Neuro/ID: 1. Step Pneumo Meningitis: Initially patient's CSF shows 20,500 white blood cell , 611 red blood cell, less than 20 glucose, total protein over 600. Her blood cultures 2, CSF culture, and CSF Gram stain showed positive for strep pneumo. Finished her four day course of Decadron. Yesterday she had new 3/6 systolic murmur that was not appreciated previously. Her Echo on admission was negative for valvular vegetation. However, given that she had strep pneumo bacteremia and new onset murmur there is concern for valvular seeding. Her wbc today at 18 which seems to be uptrending from pilar of 13 two days ago. * Patient was empirically started on vancomycin, ceftriaxone, and ampicillin. Have discontinued Ampicillin on 03/18; d/c Vanco on 03/19 as pt is growing Strep sensitive to Ceftriaxone (day 8). * Repeat BCX: ngtd * Repeat Ucx: ngtd * Repeat Echo-showed no evidence of valvular vegetation. Will likely need SAMUEL. * Cardio consult for possible SAMUEL 2. New onset Seizures: Pt has had two episodes of seizures in last 24 hrs. Each less than 2 min; self terminated. pt given ativan. * Neurology consult * Start Keppra 500 iv BID * EEG CVS: Patient has history of diabetes, hypertension. Hemodynamically stable. We will continue to monitor and keep within normal limits. Her BP goes up to 160s- 170s; She was started on IV Hydralazine 10mg Q8. Today, we added Amlodipine 2.5 to her Cozaar 100mg (which she was previously taking) and made Hydralazine PRN for BP>160. * Hydralazine PRN * Con't Cozaar * Cont' Amlodipine 2.5 daily Heme/Onc: Stable. Will con't monitor. Msk: moving all extremeties spontaneously. Stable. Will Con't monitor. GI: placed Dobbhoff on 03/20. After placement was verified via abdominal x-ray, we started tube feeds. * RISS * Tube feeds * Protonix * Fleet enema today Con't Synthroid. FULL CODE NPO ALPS DVT PPX Problem List: 1. Lactic acidosis 2. Altered mental state 3. Left otitis media 4. Sepsis 5. Meningitis Pain Ratin Tomorrow's Labs & Rationales: icu cbc Plan DVT/Prophylaxis: mechanical
[2016-03-25] VITALS: BP 118/78
--- NOTE | 2016-03-25 | ELECTROENCEPHALOGRAM REPORT ---
Electroencephalogram Report Electroencephalogram Results Date of service: 03/24/16 Attending MD: Talisha AVILA MD Tunnel Mucker: Brittni Gutierrez EEG Number: [id number] Test Utilizes: 21 electrode system Pertinent Hx/Physical/Neuro Findings/Clin Diagnosis: meningitis seizure Inpatient Medications: Current Medications Sig/Garrick Start time Last Medication Dose Route Stop Time Status Admin Acetaminophen 1,000 MG Q6-PRN PRN 03/17 1630 AC 03/20 N/A 1 UNIT IV 1552 Amlodipine Besylate 2.5 MG DAILY 03/23 1315 AC 03/24 PO 0909 Ceftriaxone Sodium 2,000 MG Q12H 03/17 1515 AC 03/24 IV 03/28 1100 1518 Dextrose/Sodium 1,000 ML Q13H 03/22 0615 DC 03/24 Chloride IV 1317 Fentanyl Citrate 100 MCG .STK-MED ONE 03/24 1512 DC IM 03/24 1513 Heparin Sodium 5,000 UNIT Q8 03/24 1045 DC (Porcine) SC Hydralazine HCl 10 MG Q8 PRN 03/23 1315 AC IV Insulin Human Regular 0 Q6 03/17 1800 AC 03/24 SC 1831 Levetiracetam 500 MG Q12H 03/25 0200 AC Sodium Chloride 100 ML IV Levetiracetam 500 MG ONCE ONE 03/24 1345 DC 03/24 Sodium Chloride 100 ML IV 03/24 1359 1431 Levothyroxine Sodium 12.5 MCG DAILY 03/19 1000 AC 03/24 IV 0909 Lorazepam 1 MG ONCE ONE 03/24 1630 DC 03/24 IV 03/24 1631 1626 Lorazepam 1 MG ONE ONE 03/24 0345 DC 03/24 IV 03/24 0346 0340 Lorazepam 1 MG Q2 HRS NEEDED PRN 03/17 2100 DC 03/24 IV 1240 Losartan Potassium 100 MG DAILY 03/20 2345 AC 03/24 PO 0909 Midazolam HCl 2 MG .STK-MED ONE 03/24 1512 DC IM 03/24 1513 Pantoprazole Sodium 40 MG DAILY 03/18 1000 AC 03/24 IV 0909 Interpretation: EEG in sedated state Background is 5-6 cps activity Intermittent sharp wave activity is present maximally in left central head region Brief episodes of electrographic seizure, left central and generalized apperar for 4-5 seconds duration Impression: Abnormal EEG due to left central sharp wave activity and brief electrographic seizures
--- NOTE | 2016-03-25 03:21 | Event Note ---
Event Note Event Note: Around 3:30 AM, patient was noted to have twitching of the right arm and deviation of her pupils to the right, suspicious for a seizure. Additional 500 mg of IV Keppra was given per neurology recs and Keppra dose was increased to 1000 mg IV BID. However, patient continued to have intermittent episodes of twitching throughout the night, each episode lasting less about 30 seconds to 1 minute. Around 6:30 AM, patient was seen and examined at bedside. She appeared to have intermittent mild twitches of her arm and right gaze deviation. She was apneic and breathing noisily. She was satting well but was tachycardic to 110s on the monitor. Tube feeds were stopped and patient was placed on BiPAP. At 7 AM patient was noted to have more violent jerking of right arm. 1 mg followed by 2 mg of IV Ativan was administered. Twitching persisted but decreased in intensity. Will continue to monitor.
--- NOTE | 2016-03-25 03:30 | NUR ---
PT NOTED TO HAVE TWITCHING OF RIGHT ARM. AND PUPILS GAZED TO RIGHT SIDE. PUPILS EQUAL SLUGGLISH 4MM. MD REVELES TO BEDSIDE. ADDITIONAL 500MG IV KEPPRA GIVEN. TWITCHING LASTS LESS THAN A MINUTE AND HAS HAPPENED MULTIPLE TIMES. WILL CONT TO MONITOR.
[2016-03-25 04:20] LABS: ABSOLUTE BASOPHIL COUNT 0 /CUMM (0.0-0.2); ABSOLUTE EOSINOPHIL COUNT 0.2 /CUMM (0.0-0.7); ABSOLUTE GRANULOCYTE CT 17.4 /CUMM (1.4-6.5); ABSOLUTE MONOCYTE COUNT 1.2 /CUMM (0.10-0.60); BASOPHIL % 0.1 % (0.0-2.0); GRANULOCYTE % 83.6 % (42.2-75.2); HEMATOCRIT 37.2 % (37-47); MEAN CORPUSCULAR HGB 28.4 PG (27.0-31.0); MEAN CORPUSCULAR HGB CONC 32.4 G/DL (33.0-37.0); MEAN CORPUSCULAR VOLUME 87.5 FL (81.0-99.0); MEAN PLATELET VOLUME 9.5 FL (7.4-10.4); PLATELET COUNT 231 /CUMM (130-400); RBC DISTRIBUTION WIDTH 14.2 % (11.5-14.5); RED BLOOD CELL CT 4.25 /CUMM (4.20-5.40); WHITE BLOOD CELL COUNT 20.8 /CUMM (4.8-10.8)
--- NOTE | 2016-03-25 04:58 | NUR ---
MD REVELES MADE AWARE TWITCHING CONTINUES APRROX 30SEC-1MIN, STATES THAT IF TWITCHING IS LONGER THAN 2 MINS, CALL MD FOR ATIVAN. WILL CONT TO MONITOR.
--- NOTE | 2016-03-25 06:24 | NUR ---
PT CONTINUES WITH TWITCHING OF RIGHT ARM, AND PERIODS OF APNEA. MD HULUR TO BEDSIDE, EYES GAZE TO RIGHT. HR VARIES FROM 70-110 WITH PERIODS OF APNIC BREATHING. O2 SAT 92-98% NC 2L. STOP TF AND PLACE ON BIPAP PER MD ORDERS. RESP PAGED AND NOTIFIED.
--- NOTE | 2016-03-25 07:38 | NUR ---
PT CONTINUES WITH TWITCHING OF R ARM, NOT MOVING LEFT ARM. MD PICHARDO TO BEDSIDE. 1MG ATIVAN GIVEN 0700. 2MG ATIVAN GIVEN 0715. TWITCHING REMAINS, BUT HAS DECREASED. B/P 200/90 10MG IVP HYDRALYZINE GIVEN 0720 B/P 130/70 AT 0725
[2016-03-25 08:00] VITALS: BP 120/62
[2016-03-25 08:52] LABS: ABSOLUTE BASOPHIL COUNT 0 /CUMM (0.0-0.2); ABSOLUTE EOSINOPHIL COUNT 0.4 /CUMM (0.0-0.7); ABSOLUTE GRANULOCYTE CT 18.8 /CUMM (1.4-6.5); ABSOLUTE LYMPH COUNT 2.4 /CUMM (1.2-3.4); ABSOLUTE MONOCYTE COUNT 1.1 /CUMM (0.10-0.60); BASOPHIL % 0.2 % (0.0-2.0); EOSINOPHIL % 1.8 % (0-5); GRANULOCYTE % 82.5 % (42.2-75.2); HEMATOCRIT 37.8 % (37-47); MEAN CORPUSCULAR HGB 28.5 PG (27.0-31.0); MEAN CORPUSCULAR HGB CONC 32.6 G/DL (33.0-37.0); MEAN CORPUSCULAR VOLUME 87.4 FL (81.0-99.0); MEAN PLATELET VOLUME 9.5 FL (7.4-10.4); PLATELET COUNT 272 /CUMM (130-400); RBC DISTRIBUTION WIDTH 13.5 % (11.5-14.5); RED BLOOD CELL CT 4.32 /CUMM (4.20-5.40); WHITE BLOOD CELL COUNT 22.8 /CUMM (4.8-10.8)
--- NOTE | 2016-03-25 09:07 | RADIOLOGY REPORT ---
EXAMINATION: XR PORTABLE CHEST CLINICAL INFORMATION: Intubated patient COMPARISON: 03/21/2016 TECHNIQUE: Portable AP view of the chest was obtained. FINDINGS: Patient motion limits evaluation. Endotracheal tube tip is slightly high at 5.6 cm above the eugenio. Enteric tube tip is not well seen, however it is seen crossing the diaphragm. Right upper extremity PICC tip is not well seen due to overlapping of the right heart with the spine. Increased inflation of the lungs without focal consolidation, pleural effusion or pneumothorax. The cardiac mediastinal silhouette is unchanged. No acute osseous abnormality. IMPRESSION: 1. Interval intubation. The endotracheal tube is slightly cranial in positioning at 5.6 cm above the eugenio (2-5 cm is ideal). Enteric tube is poorly evaluated due to patient motion and underpenetration. 2. Increased inflation of the lungs. No evidence of pneumothorax or pleural effusion. This critical result was discussed with Rosalba Norris MD at 9:00 AM on 03/25/2016 and it was ascertained that the content and urgency of the report was understood at the time of direct communication.
[2016-03-25 09:21] LABS: PT 13.3 SEC (9.4-12.5)
--- NOTE | 2016-03-25 10:39 | PN- Infect Dx ---
Subjective Subjective: Afebrile. Recent events noted with seizure activity throughout the night, requiring additional doses of Keppra, followed by Ativan, with the development of apnea, leading to cardiac arrest and intubation, and hypotension, requiring pressors. Objective Last 24 Hrs of Vital Signs/I&O Vital Signs Date Time Temp Pulse Resp B/P Pulse O2 O2 Flow FiO2 Ox Delivery Rate 03/25 08 103 52/0 03/25 0809 100 03/25 0734 105 95 03/25 0720 89 200/90 03/25 0643 88 98 03/25 0400 96 Nasal 2.0L Cannula 03/25 0000 98 Nasal 1.0L Cannula 03/25 0000 97.5 102 26 118/78 98 Nasal 1.0L Cannula 03/24 1999 96 Nasal 2.0L Cannula 03/24 1600 Nasal 2.0L Cannula 03/24 1600 98.3 77 22 130/82 96 Nasal 2.0L Cannula 03/24 1200 Nasal 2.0L Cannula 03/24 1200 97.3 88 22 130/80 95 Nasal 2.0L Cannula Intake & Output 03/25 1600 03/25 0800 03/25 0000 Intake Total 992 497 Output Total 600 650 Balance 392 -153 Intake, IV 322 239 Intake, Oral 0 0 Intake, Tube 480 163 Feeding Intake, Tube 190 95 Irrigant Number 0 1 Bowel Movements Output, Urine 600 650 Physical Exam Other Physical Findings: She is unresponsive on the ventilator Lungs are clear Heart regular rhythm with a 3/6 systolic murmur Abdomen is soft, with no obvious tenderness, positive bowel sounds Extremities PICC in the right upper extremity with no inflammation at the site Neuro no seizure activity noted at this time Dominguez catheter remains in place Results Last 24 Hours of Lab Results: Laboratory Tests 03/25 03/25 0903 0824 Blood Gas pH (7.35 - 7.45 PH) 7.49 H pCO2 (35 - 45 TORR) 27 L pO2 (80 - 100 TORR) 430 H HCO3 (21 - 28 MEQ/L) 20 L ABG O2 Sat (Measured) (>96.0 %) 99.0 Carboxyhemoglobin (1.5 - 5.0 %) 0.3 L O2 Concentration % 100 Temperature (97.0 - 100.0 FARH) 97.5 Respiration Rate (BPM) 26 O2 Delivery Method VENT Vent Mode VC-AC Expiratory Pressure (CMH2O/P) 5 Tidal Volume (CC) 550 Chemistry Sodium (137 - 145 mmol/L) 136 L Potassium (3.5 - 5.1 mmol/L) 4.2 Chloride (98 - 107 mmol/L) 99 Carbon Dioxide (22 - 30 mmol/L) 28 Anion Gap (5 - 16) 9 BUN (7 - 17 mg/dL) 20 H Creatinine (0.5 - 1.0 mg/dL) 0.9 Estimated GFR (>60 ml/min) > 60 Glucose (65 - 99 mg/dL) 398 H Lactic Acid (0.7 - 2.1 mmol/L) 4.0 H Calcium (8.4 - 10.2 mg/dL) 8.8 Phosphorus (2.5 - 4.5 mg/dL) 5.5 H Magnesium (1.6 - 2.3 mg/dL) 2.0 Total Bilirubin (0.2 - 1.3 mg/dL) 0.6 AST (14 - 36 U/L) 27 ALT (9 - 52 U/L) 43 Troponin I (< 0.11 ng/ml) 0.04 Albumin (3.5 - 5.0 g/dL) 2.8 L Coagulation PT (9.4 - 12.5 SEC) 13.3 H INR (0.90 - 1.19) 1.27 H Hematology CBC w Diff NO MAN DIFF REQ WBC (4.8 - 10.8 /CUMM) 22.8 H RBC (4.20 - 5.40 /CUMM) 4.32 Hgb (12.0 - 16.0 G/DL) 12.3 Hct (37 - 47 %) 37.8 MCV (81.0 - 99.0 FL) 87.4 MCH (27.0 - 31.0 PG) 28.5 RDW (11.5 - 14.5 %) 13.5 Plt Count (130 - 400 /CUMM) 272 MPV (7.4 - 10.4 FL) 9.5 Gran % (42.2 - 75.2 %) 82.5 H Lymphocytes % (20.5 - 51.1 %) 10.7 L Monocytes % (1.7 - 9.3 %) 4.8 Eosinophils % (0 - 5 %) 1.8 Basophils % (0.0 - 2.0 %) 0.2 Absolute Granulocytes (1.4 - 6.5 /CUMM) 18.8 H Absolute Lymphocytes (1.2 - 3.4 /CUMM) 2.4 Absolute Monocytes (0.10 - 0.60 /CUMM) 1.1 H Absolute Eosinophils (0.0 - 0.7 /CUMM) 0.4 Absolute Basophils (0.0 - 0.2 /CUMM) 0 PUBS MCHC (33.0 - 37.0 G/DL) 32.6 L Miscellaneous Phlebotomy Draw Site LEFT RADIAL 03/25 03/25 03/24 0755 0320 1700 Blood Gas pH (7.35 - 7.45 PH) 7.28 *L pCO2 (35 - 45 TORR) 67 *H pO2 (80 - 100 TORR) 103 H HCO3 (21 - 28 MEQ/L) 31 H ABG O2 Sat (Measured) (>96.0 %) 97.0 P-50 (Temp Corrected) YES Carboxyhemoglobin (1.5 - 5.0 %) 0.5 L O2 Concentration % 40 Temperature (97.0 - 100.0 FARH) 97.5 Respiration Rate (BPM) 24 O2 Delivery Method BIPAP Vent Mode BIPAP Expiratory Pressure (CM H2O P) 6 Inspiratory Pressure (CM H2O P) 14 Chemistry Sodium (137 - 145 mmol/L) 135 L Potassium (3.5 - 5.1 mmol/L) 4.4 Chloride (98 - 107 mmol/L) 100 Carbon Dioxide (22 - 30 mmol/L) 30 Anion Gap (5 - 16) 6 BUN (7 - 17 mg/dL) 18 H Creatinine (0.5 - 1.0 mg/dL) 0.5 Estimated GFR (>60 ml/min) > 60 Glucose (65 - 99 mg/dL) 284 H Calcium (8.4 - 10.2 mg/dL) 8.7 Phosphorus (2.5 - 4.5 mg/dL) 3.4 Magnesium (1.6 - 2.3 mg/dL) 1.7 Total Bilirubin (0.2 - 1.3 mg/dL) 0.8 AST (14 - 36 U/L) 26 ALT (9 - 52 U/L) 42 Albumin (3.5 - 5.0 g/dL) 2.8 L Hematology CBC w Diff NO MAN DIFF REQ WBC (4.8 - 10.8 /CUMM) 20.8 H RBC (4.20 - 5.40 /CUMM) 4.25 Hgb (12.0 - 16.0 G/DL) 12.1 Hct (37 - 47 %) 37.2 MCV (81.0 - 99.0 FL) 87.5 MCH (27.0 - 31.0 PG) 28.4 RDW (11.5 - 14.5 %) 14.2 Plt Count (130 - 400 /CUMM) 231 MPV (7.4 - 10.4 FL) 9.5 Gran % (42.2 - 75.2 %) 83.6 H Lymphocytes % (20.5 - 51.1 %) 9.4 L Monocytes % (1.7 - 9.3 %) 5.9 Eosinophils % (0 - 5 %) 1.0 Basophils % (0.0 - 2.0 %) 0.1 Absolute Granulocytes (1.4 - 6.5 /CUMM) 17.4 H Absolute Lymphocytes (1.2 - 3.4 /CUMM) 2.0 Absolute Monocytes (0.10 - 0.60 /CUMM) 1.2 H Absolute Eosinophils (0.0 - 0.7 /CUMM) 0.2 Absolute Basophils (0.0 - 0.2 /CUMM) 0 PUBS MCHC (33.0 - 37.0 G/DL) 32.4 L Miscellaneous Phlebotomy Draw Site LEFT RADIAL Other Body Source CSF Glucose (40 - 70 mg/dL) 152 H CSF LDH (U/L) 378 CSF Total Protein (12 - 60 mg/dL) 119 H 03/24 03/24 1700 1307 Coagulation PT (9.4 - 12.5 SEC) 14.3 H INR (0.90 - 1.19) 1.37 H APTT (25 - 37 SEC) 30 Hematology Lymphocytes (%) 41 % Normal PMNs (%) 54 Misc Hematology Test (%) 5 Other Body Source CSF WBC (0 - 5 /CUMM) 42 *H CSF RBC (-0 /CUMM) 2 H CSF Comment Last 24 Hours of [place] Results: Blood cultures 2 March 23 remain negative CSF culture March 24 negative Sputum culture March 25 pending, with gram stain revealing moderate white blood cells and moderate gram-positive cocci Recent Imaging Studies: Chest x-ray March 25 negative EEG March 24 is abnormal due to left central sharp wave activity Assessment/Plan Impression: Acute deterioration in her status with continued seizure activity despite Keppra leading to apnea and respiratory arrest and hypotension, now intubated and on pressors. Her repeat CSF is much improved with a marked decrease in her white blood cells and protein. The culture is so far negative, with the gram stain initially read as revealing gram-positive cocci in pairs, though this has not been confirmed on further review. Her EEG does reveal a focus on the left, explaining her right-sided twitching, with her recent CT scan negative for any focal process. She remains afebrile on Ceftriaxone now Day 8 of treatment for pneumococcal meningitis/sepsis but white blood cell count continues to increase, possibly secondary to seeding of other organs, for example the heart valves, with her new murmur, though the repeat echocardiogram is negative, or to a new infection, for example pneumonia, though her recent chest x-ray is negative. Several loose watery stools were reported 2 days ago and, if they recur, C. difficile should be ruled out. Suggestion: 1. Repeat blood cultures 2 2. Follow-up recent CSF and sputum cultures 3. Stool for C. difficile if diarrhea recurs 4. Further evaluation, including SAMUEL and MRI of the head, when feasible 5. Begin Vancomycin 1 g IV every 12 hours pending above 6. Continue Ceftriaxone
--- NOTE | 2016-03-25 11:10 | PN- Cardiology ---
Subjective Subjective: The patient has had significant deterioration in her condition. She has had recurrent seizures and developed respiratory distress and was intubated. She also became hypotensive and is now on pressors. She remains on antibiotics. Repeat cultures are negative but there are still gram-positive cocci seen in her repeat spinal fluid assessment. A troponin this morning after intubation and brief CPR showed a value of 0.04. Follow-up values are pending. A 12-lead EKG shows sinus tachycardia with diffuse ST depression. Objective Vital Signs and I&Os Vital Signs Date Time Temp Pulse Resp B/P Pulse O2 O2 Flow FiO2 Ox Delivery Rate 03/25 830 103 52/0 03/25 0809 100 03/25 0734 105 95 03/25 0720 89 200/90 03/25 0643 88 98 03/25 0400 96 Nasal 2.0L Cannula 03/25 0000 98 Nasal 1.0L Cannula 03/25 0000 97.5 102 26 118/78 98 Nasal 1.0L Cannula 03/24 1999 96 Nasal 2.0L Cannula 03/24 1600 Nasal 2.0L Cannula 03/24 1600 98.3 77 22 130/82 96 Nasal 2.0L Cannula 03/24 1200 Nasal 2.0L Cannula 03/24 1200 97.3 88 22 130/80 95 Nasal 2.0L Cannula Intake & Output 03/25 1600 03/25 0800 03/25 0000 03/24 1600 03/24 0800 03/24 0000 Intake Total 955 802 9509 1114 955 Output Total 600 650 900 650 630 Balance 392 -153 372 464 325 Intake, IV 322 239 742 495 596 Intake, Oral 0 0 0 0 Intake, Tube 480 163 285 429 244 Feeding Intake, Tube 190 95 245 190 115 Irrigant Number 0 1 0 0 1 Bowel Movements Output, Urine 600 650 900 650 630 Patient 182 lb Weight Physical Exam: She is intubated and sedated on the respirator. She is totally unresponsive. Lungs reveal good air entry Heart reveals tachycardia with holosystolic murmur at the apex. Assessment/Plan Assessment/Plan The patient has had significant deterioration including respiratory arrest requiring intubation, use of pressors as well as recurrent seizure activity. At this point she is too unstable to perform a transesophageal echocardiogram. The results will not change her current treatment at this time, but will eventually have prognostic value. I will continue to follow her along and if she improves and is able to tolerate transesophageal echocardiogram we will plan it at that time. Continue telemetry? Yes
[2016-03-25 12:00] VITALS: BP 120/70
--- NOTE | 2016-03-25 13:09 | PN- CRCU ---
Subjective HPI/Critical Care Issues: The patient was noted to have prolonged periods of apnea this morning. She had intermittent seizure activity as well. She was placed on BiPAP however her ABG demonstrated respiratory acidosis. As a result, anesthesia was paged and the patient was intubated. During the intubation, the patient became bradycardic and went into asystole without any pulse. She received one epinephrine and one round of CPR with return of spontaneous circulation. She currently remains on mechanical ventilation and is unresponsive. Post arrest, the patient's blood pressure deteriorated and she is now requiring both Levophed and Rashid-Synephrine for blood pressure support. Objective Current Medications: Current Medications Sig/Garrick Start time Last Medication Dose Route Stop Time Status Admin Acetaminophen 1,000 MG Q6-PRN PRN 03/17 1630 AC 03/20 N/A 1 UNIT IV 1552 Amlodipine Besylate 5 MG DAILY 03/25 1000 AC PO Amlodipine Besylate 2.5 MG DAILY 03/23 1315 DC 03/24 PO 0909 Ceftriaxone Sodium 2,000 MG Q12H 03/17 1515 AC 03/25 IV 03/28 1100 0326 Dextrose/Sodium 1,000 ML Q13H 03/22 0615 DC 03/24 Chloride IV 1317 Fentanyl Citrate 100 MCG .STK-MED ONE 03/24 1512 DC IM 03/24 1513 Heparin Sodium 5,000 UNIT Q8 03/25 1400 UNVr (Porcine) SC Heparin Sodium 5,000 UNIT Q8 03/24 1045 DC (Porcine) SC Hydralazine HCl 10 MG Q8 PRN 03/23 1315 AC 03/25 IV 0720 Insulin Human Regular 0 Q6 03/17 1800 AC 03/25 SC 1121 Levetiracetam 1,000 MG Q12H 03/25 1400 AC Sodium Chloride 100 ML IV Levetiracetam 500 MG ONCE ONE 03/25 0330 DC 03/25 Sodium Chloride 100 ML IV 03/25 0344 0325 Levetiracetam 500 MG Q12H 03/25 0200 DC 03/25 Sodium Chloride 100 ML IV 0217 Levetiracetam 500 MG ONCE ONE 03/24 1345 DC 03/24 Sodium Chloride 100 ML IV 03/24 1359 1431 Levothyroxine Sodium 12.5 MCG DAILY 03/19 1000 AC 03/25 IV 0907 Lorazepam 1 MG Q1P PRN 03/25 1100 AC IV Lorazepam 2 MG ONE ONE 03/25 1000 DC 03/25 IV 03/25 1001 0957 Lorazepam 2 MG ONE ONE 03/25 0715 DC 03/25 IV 03/25 0716 0715 Lorazepam 1 MG ONCE ONE 03/25 0700 DC 03/25 IV 03/25 0701 0700 Lorazepam 1 MG ONCE ONE 03/24 1630 DC 03/24 IV 03/24 1631 1626 Lorazepam 1 MG Q2 HRS NEEDED PRN 03/17 2100 DC 03/24 IV 1240 Losartan Potassium 100 MG DAILY 03/20 2345 AC 03/24 PO 0909 Midazolam HCl 2 MG .STK-MED ONE 03/24 1512 DC IM 03/24 1513 Norepinephrine 4 MG Q24H 03/25 0830 AC 03/25 Dextrose/Water 250 ML IV 0831 Pantoprazole Sodium 40 MG DAILY 03/18 1000 AC 03/25 IV 0907 Phenylephrine HCl 40 MG Q24H 03/25 0845 AC 03/25 Sodium Chloride 250 ML IV 0833 Sodium Chloride 1,000 ML BOLUS ONE 03/25 0845 DC 03/25 IV 03/25 0944 0840 Sodium Chloride 500 ML BOLUS ONE 03/25 0830 DC 03/25 IV 03/25 0929 0830 Vancomycin HCl 1,000 MG Q12H 03/25 1200 AC 03/25 Dextrose/Water 250 ML IV 1251 Vital Signs & I&O Last 24 Hrs of Vitals and I&O: Vital Signs Date Time Temp Pulse Resp B/P Pulse O2 O2 Flow FiO2 Ox Delivery Rate 03/25 1201 60 03/25 0831 103 52/0 03/25 0809 100 03/25 0734 105 95 03/25 0720 89 200/90 03/25 0643 88 98 03/25 0400 96 Nasal 2.0L Cannula 03/25 0000 98 Nasal 1.0L Cannula 03/25 0000 97.5 102 26 118/78 98 Nasal 1.0L Cannula 03/24 1999 96 Nasal 2.0L Cannula 03/24 1600 Nasal 2.0L Cannula 03/24 1600 98.3 77 22 130/82 96 Nasal 2.0L Cannula Intake & Output 03/25 1600 03/25 0800 03/25 0000 Intake Total 992 497 Output Total 600 650 Balance 392 -153 Intake, IV 322 239 Intake, Oral 0 0 Intake, Tube 480 163 Feeding Intake, Tube 190 95 Irrigant Number 0 1 Bowel Movements Output, Urine 600 650 Exam General Appearance: Unresponsive, intubated Head: atraumatic Neck: limited range of motion Respiratory: chest non-tender, lungs clear, accessory muscle use Cardiovascular: S1 and S2 heard, positive systolic murmur Gastrointestinal: normal bowel sounds, soft, non-tender Extremities: no edema Results Last 24 Hrs of Lab Results: Laboratory Tests 03/25/16 1102: pH 7.55 H, pCO2 25 L, pO2 316 H, HCO3 21, ABG O2 Sat (Measured) 99.0, P-50 ( Temp Corrected) YES, Carboxyhemoglobin 0.3 L, O2 Concentration % 75%, Temperature 98.2, Respiration Rate 20, O2 Delivery Method VENT, Vent Mode AC, Expiratory Pressure 5, Tidal Volume 500, Phlebotomy Draw Site LEFT RADIAL 03/25/16 0903: pH 7.49 H, pCO2 27 L, pO2 430 H, HCO3 20 L, ABG O2 Sat (Measured) 99.0, Carboxyhemoglobin 0.3 L, O2 Concentration % 100, Temperature 97.5, Respiration Rate 26, O2 Delivery Method VENT, Vent Mode VC-AC, Expiratory Pressure 5, Tidal Volume 550, Phlebotomy Draw Site LEFT RADIAL 03/25/16 0824: Anion Gap 9, Estimated GFR > 60, Glucose 398 H, Lactic Acid 4.0 H, Calcium 8.8 , Phosphorus 5.5 H, Magnesium 2.0, Total Bilirubin 0.6, AST 27, ALT 43, Troponin I 0.04, Albumin 2.8 L, PT 13.3 H, INR 1.27 H, CBC w Diff NO MAN DIFF REQ, RBC 4.32, MCV 87.4, MCH 28.5, RDW 13.5, MPV 9.5, Gran % 82.5 H, Lymphocytes % 10.7 L, Monocytes % 4.8, Eosinophils % 1.8, Basophils % 0.2, Absolute Granulocytes 18.8 H, Absolute Lymphocytes 2.4, Absolute Monocytes 1.1 H, Absolute Eosinophils 0.4, Absolute Basophils 0, PUBS MCHC 32.6 L 03/25/16 0725: pH 7.28 *L, pCO2 67 *H, pO2 103 H, HCO3 31 H, ABG O2 Sat (Measured) 97.0, P-50 (Temp Corrected) YES, Carboxyhemoglobin 0.5 L, O2 Concentration % 40, Temperature 97.5, Respiration Rate 24, O2 Delivery Method BIPAP, Vent Mode BIPAP , Expiratory Pressure 6, Inspiratory Pressure 14, Phlebotomy Draw Site LEFT RADIAL 03/25/16 0320: Anion Gap 6, Estimated GFR > 60, Glucose 284 H, Calcium 8.7, Phosphorus 3.4, Magnesium 1.7, Total Bilirubin 0.8, AST 26, ALT 42, Albumin 2.8 L, CBC w Diff NO MAN DIFF REQ, RBC 4.25, MCV 87.5, MCH 28.4, RDW 14.2, MPV 9.5, Gran % 83.6 H , Lymphocytes % 9.4 L, Monocytes % 5.9, Eosinophils % 1.0, Basophils % 0.1, Absolute Granulocytes 17.4 H, Absolute Lymphocytes 2.0, Absolute Monocytes 1.2 H, Absolute Eosinophils 0.2, Absolute Basophils 0, PUBS MCHC 32.4 L 03/24/16 1700: CSF Glucose 152 H, CSF LDH 378, CSF Total Protein 119 H 03/24/16 1700: Lymphocytes 41, % Normal PMNs 54, Misc Hematology Test 5, CSF WBC 42 *H, CSF RBC 2 H, CSF Comment 03/24/16 1307: PT 14.3 H, INR 1.37 H, APTT 30 Last 24 Hrs of Micro Results: Repeat LP is negative so far. Impression/Plan Impression/Plan Impression/Plan: 1. Cardiopulmonary arrest in the setting of continued seizure activity despite Keppra and Ativan. 2. Pneumococcal meningitis and sepsis now with increased seizure activity, now on day 8 of treatment with ceftriaxone. 3. Respiratory failure secondary to ventilatory failure. 4. Malnutrition. 5. New systolic murmur, rule out etiology. Recommendations: * Continue to titrate pressors down, maintain systolic blood pressure greater than 90 mmHg. * Normal saline at 100 ML per hour. * Ventilator settings have been changed, we'll check a repeat ABG later today. * Follow-up recent CSF and sputum cultures. * Repeat blood cultures today as per ID. * Await stability of the patient so SAMUEL could be performed. * Begin ceftriaxone as per ID. * Continue tube feeds with water flushes. * PRN ativan if seizure recurs, continue Keppra, we will follow neurology's recommendations. * Start SQ heparin for DVT prophylaxis. * The patient's family was updated at the bedside. * The patient has the potential for a poor prognosis. * Continue all supportive care for now.
--- NOTE | 2016-03-25 14:20 | PN- Resident CRCU ---
Subjective HPI/CRCU Issues: Patient in ICU for: Strep pneumo meningitis,seizure, cardiopulmonary arrest now intubated This a.m. patient was noted to have prolonged periods of apnea, put on BiPAP and blood pressure over 200 systolic. ABG measured showed pH 7.28, as such, anesthesia was called for intubation.during intubation patient had episode of bradycardia and went into asystole. She had one round of CPR with one dose epinephrine until ROSC obtained. Currently, pt is intubated on levophen and neosynephrine. Lowest BP recorded Objective Vital Signs & I&O Last 8 Hrs of Vitals and I&O: Laboratory Tests 03/25 03/25 1102 0903 Blood Gas pH (7.35 - 7.45 PH) 7.55 H 7.49 H pCO2 (35 - 45 TORR) 25 L 27 L pO2 (80 - 100 TORR) 316 H 430 H HCO3 (21 - 28 MEQ/L) 21 20 L ABG O2 Sat (Measured) (>96.0 %) 99.0 99.0 P-50 (Temp Corrected) YES Carboxyhemoglobin (1.5 - 5.0 %) 0.3 L 0.3 L O2 Concentration % 75% 100 Temperature (97.0 - 100.0 FARH) 98.2 97.5 Respiration Rate (BPM) 20 26 O2 Delivery Method VENT VENT Vent Mode AC VC-AC Expiratory Pressure (CMH2O/P) 5 5 Tidal Volume (CC) 500 550 Miscellaneous Phlebotomy Draw Site LEFT RADIAL LEFT RADIAL 03/25 03/25 0824 0725 Blood Gas pH (7.35 - 7.45 PH) 7.28 *L pCO2 (35 - 45 TORR) 67 *H pO2 (80 - 100 TORR) 103 H HCO3 (21 - 28 MEQ/L) 31 H ABG O2 Sat (Measured) (>96.0 %) 97.0 P-50 (Temp Corrected) YES Carboxyhemoglobin (1.5 - 5.0 %) 0.5 L O2 Concentration % 40 Temperature (97.0 - 100.0 FARH) 97.5 Respiration Rate (BPM) 24 O2 Delivery Method BIPAP Vent Mode BIPAP Expiratory Pressure (CM H2O P) 6 Inspiratory Pressure (CM H2O P) 14 Chemistry Sodium (137 - 145 mmol/L) 136 L Potassium (3.5 - 5.1 mmol/L) 4.2 Chloride (98 - 107 mmol/L) 99 Carbon Dioxide (22 - 30 mmol/L) 28 Anion Gap (5 - 16) 9 BUN (7 - 17 mg/dL) 20 H Creatinine (0.5 - 1.0 mg/dL) 0.9 Estimated GFR (>60 ml/min) > 60 Glucose (65 - 99 mg/dL) 398 H Lactic Acid (0.7 - 2.1 mmol/L) 4.0 H Calcium (8.4 - 10.2 mg/dL) 8.8 Phosphorus (2.5 - 4.5 mg/dL) 5.5 H Magnesium (1.6 - 2.3 mg/dL) 2.0 Total Bilirubin (0.2 - 1.3 mg/dL) 0.6 AST (14 - 36 U/L) 27 ALT (9 - 52 U/L) 43 Troponin I (< 0.11 ng/ml) 0.04 Albumin (3.5 - 5.0 g/dL) 2.8 L Coagulation PT (9.4 - 12.5 SEC) 13.3 H INR (0.90 - 1.19) 1.27 H Hematology CBC w Diff NO MAN DIFF REQ WBC (4.8 - 10.8 /CUMM) 22.8 H RBC (4.20 - 5.40 /CUMM) 4.32 Hgb (12.0 - 16.0 G/DL) 12.3 Hct (37 - 47 %) 37.8 MCV (81.0 - 99.0 FL) 87.4 MCH (27.0 - 31.0 PG) 28.5 RDW (11.5 - 14.5 %) 13.5 Plt Count (130 - 400 /CUMM) 272 MPV (7.4 - 10.4 FL) 9.5 Gran % (42.2 - 75.2 %) 82.5 H Lymphocytes % (20.5 - 51.1 %) 10.7 L Monocytes % (1.7 - 9.3 %) 4.8 Eosinophils % (0 - 5 %) 1.8 Basophils % (0.0 - 2.0 %) 0.2 Absolute Granulocytes (1.4 - 6.5 /CUMM) 18.8 H Absolute Lymphocytes (1.2 - 3.4 /CUMM) 2.4 Absolute Monocytes (0.10 - 0.60 /CUMM) 1.1 H Absolute Eosinophils (0.0 - 0.7 /CUMM) 0.4 Absolute Basophils (0.0 - 0.2 /CUMM) 0 PUBS MCHC (33.0 - 37.0 G/DL) 32.6 L Miscellaneous Phlebotomy Draw Site LEFT RADIAL 03/25 03/24 03/24 0320 1700 1700 Chemistry Sodium (137 - 145 mmol/L) 135 L Potassium (3.5 - 5.1 mmol/L) 4.4 Chloride (98 - 107 mmol/L) 100 Carbon Dioxide (22 - 30 mmol/L) 30 Anion Gap (5 - 16) 6 BUN (7 - 17 mg/dL) 18 H Creatinine (0.5 - 1.0 mg/dL) 0.5 Estimated GFR (>60 ml/min) > 60 Glucose (65 - 99 mg/dL) 284 H Calcium (8.4 - 10.2 mg/dL) 8.7 Phosphorus (2.5 - 4.5 mg/dL) 3.4 Magnesium (1.6 - 2.3 mg/dL) 1.7 Total Bilirubin (0.2 - 1.3 mg/dL) 0.8 AST (14 - 36 U/L) 26 ALT (9 - 52 U/L) 42 Albumin (3.5 - 5.0 g/dL) 2.8 L Hematology CBC w Diff NO MAN DIFF REQ WBC (4.8 - 10.8 /CUMM) 20.8 H RBC (4.20 - 5.40 /CUMM) 4.25 Hgb (12.0 - 16.0 G/DL) 12.1 Hct (37 - 47 %) 37.2 MCV (81.0 - 99.0 FL) 87.5 MCH (27.0 - 31.0 PG) 28.4 RDW (11.5 - 14.5 %) 14.2 Plt Count (130 - 400 /CUMM) 231 MPV (7.4 - 10.4 FL) 9.5 Gran % (42.2 - 75.2 %) 83.6 H Lymphocytes % (20.5 - 51.1 %) 9.4 L Monocytes % (1.7 - 9.3 %) 5.9 Eosinophils % (0 - 5 %) 1.0 Basophils % (0.0 - 2.0 %) 0.1 Absolute Granulocytes (1.4 - 6.5 /CUMM) 17.4 H Absolute Lymphocytes (1.2 - 3.4 /CUMM) 2.0 Lymphocytes (%) 41 Absolute Monocytes (0.10 - 0.60 /CUMM) 1.2 H Absolute Eosinophils (0.0 - 0.7 /CUMM) 0.2 Absolute Basophils (0.0 - 0.2 /CUMM) 0 % Normal PMNs (%) 54 PUBS MCHC (33.0 - 37.0 G/DL) 32.4 L Misc Hematology Test (%) 5 Other Body Source CSF WBC (0 - 5 /CUMM) 42 *H CSF RBC (-0 /CUMM) 2 H CSF Comment CSF Glucose (40 - 70 mg/dL) 152 H CSF LDH (U/L) 378 CSF Total Protein (12 - 60 mg/dL) 119 H Exam General Appearance: sedated, intubated, mild distress Head: atraumatic, normal appearance Ears, Nose, Throat: moist mucus membranes Neck: supple, trachea mid line Respiratory: chest non-tender, intubated Cardiovascular: regular rate/rhythm Gastrointestinal: soft, non-tender IV Drips IV Drips: neosynephrine tube feed levophed Nutrition Nutrition: tube feeding Current Medications: Current Medications Sig/Garrick Start time Last Medication Dose Route Stop Time Status Admin Acetaminophen 1,000 MG Q6-PRN PRN 03/17 1630 AC 03/20 N/A 1 UNIT IV 1552 Amlodipine Besylate 5 MG DAILY 03/25 1000 AC PO Amlodipine Besylate 2.5 MG DAILY 03/23 1315 DC 03/24 PO 0909 Ceftriaxone Sodium 2,000 MG Q12H 03/17 1515 AC 03/25 IV 03/28 1100 0326 Dextrose/Sodium 1,000 ML Q13H 03/22 0615 DC 03/24 Chloride IV 1317 Fentanyl Citrate 100 MCG .STK-MED ONE 03/24 1512 DC IM 03/24 1513 Heparin Sodium 5,000 UNIT Q8 03/25 1400 AC (Porcine) SC Heparin Sodium 5,000 UNIT Q8 03/24 1045 DC (Porcine) SC Hydralazine HCl 10 MG Q8 PRN 03/23 1315 AC 03/25 IV 0720 Insulin Human Regular 0 Q6 03/17 1800 AC 03/25 SC 1121 Levetiracetam 1,000 MG Q12H 03/25 1400 AC Sodium Chloride 100 ML IV Levetiracetam 500 MG ONCE ONE 03/25 0330 DC 03/25 Sodium Chloride 100 ML IV 03/25 0344 0325 Levetiracetam 500 MG Q12H 03/25 0200 DC 03/25 Sodium Chloride 100 ML IV 0217 Levothyroxine Sodium 12.5 MCG DAILY 03/19 1000 AC 03/25 IV 0907 Lorazepam 1 MG Q1P PRN 03/25 1100 AC IV Lorazepam 2 MG ONE ONE 03/25 1000 DC 03/25 IV 03/25 1001 0957 Lorazepam 2 MG ONE ONE 03/25 0715 DC 03/25 IV 03/25 0716 0715 Lorazepam 1 MG ONCE ONE 03/25 0700 DC 03/25 IV 03/25 0701 0700 Lorazepam 1 MG ONCE ONE 03/24 1630 DC 03/24 IV 03/24 1631 1626 Lorazepam 1 MG Q2 HRS NEEDED PRN 03/17 2100 DC 03/24 IV 1240 Losartan Potassium 100 MG DAILY 03/20 2345 AC 03/24 PO 0909 Midazolam HCl 2 MG .STK-MED ONE 03/24 1512 DC IM 03/24 1513 Norepinephrine 4 MG Q24H 03/25 0830 AC 03/25 Dextrose/Water 250 ML IV 0831 Pantoprazole Sodium 40 MG DAILY 03/18 1000 AC 03/25 IV 0907 Phenylephrine HCl 40 MG Q24H 03/25 0845 AC 03/25 Sodium Chloride 250 ML IV 0833 Sodium Chloride 1,000 ML BOLUS ONE 03/25 0845 DC 03/25 IV 03/25 0944 0840 Sodium Chloride 500 ML BOLUS ONE 03/25 0830 DC 03/25 IV 03/25 0929 0830 Vancomycin HCl 1,000 MG Q12H 03/25 1200 AC 03/25 Dextrose/Water 250 ML IV 1251 Impression/Plan Impression/Problem List Impression: This is a 70 year old female with PMH of hypotension, hyperlipidemia, hypothyroidism DM who came was brought to hospital after being found unresponsive. She had one day of otalgia and difficulty hearing. Found down and unresponsive, subsequently brought to . In ED was found to have Tmax 102, AMS/ agitation, CT with pneumocephalus in temporal lobe, and opacification of mastoid air cells. Due to concern for bacterial meningitis 2/2 otitis she was admitted to ICU. PLAN Respiratory: She had episodes of prolonged apnea, put on BiPAP, subsequently blood gas measured at 7.28. Patient was intubated, procedure was complicated by cardiac arrest. Currently she is now intubated and sedated with Ativan (she is also having seizure activity). She is also on Rashid-Synephrine and Levothroid for pressure support. * Con't mechanical ventilation * Recheck ABG * Aspiration precautions Neuro/ID: 1. Step Pneumo Meningitis: Patient has strep pneumo meningitis confirmed by CSF culture and blood culture. She finished her 4 day course of Decadron. Initial CSF white count was over 20,000 and repeat LP showed white blood cell of 42. There is question whether patient is still growing organism as G PVCs were seen on Gram stain. However, it is possible that these are organisms. Of note, during admission she had a new 306 systolic murmur heard 2 days ago. There is concern for endocarditis in the setting of strep pneumo bacteremia. 2x TTEs have both been negative for any valvular pathology. Of particular concern is that her white count is up trending from its pilar of 13, 3 days ago to 20.8 today. * This is 8th day of antibiotics. Is currently only on ceftriaxone. * Start vancomycin * Repeat BCX: ngtd * Repeat Ucx: ngtd * Repeat Echo-showed no evidence of valvular vegetation. Will likely need SAMUEL. * Cardio consult for possible SAMUEL * Negative cxr-no evidence of PNA 2. New onset Seizures: Patient has new onset seizures which started early a.m. on 03/24/2016. Since then she has had a repeat seizure activity, at least 2 episodes of GPC. The rest seem to be focal, localized to her right arm. EEG shows corresponding epileptiform activity in left hemisphere. * Appreciate Neurology consult * Start Keppra 500 iv BID--> Increased to 1000 BID CVS: Patient has history of diabetes, hypertension. Patient is on Levophed and Rashid-Synephrine for pressure support. * Hold all antihypertensives * Wean off Levophed and Rashid-Synephrine as tolerated Heme/Onc: Stable. Will con't monitor. Msk: moving all extremeties spontaneously. Stable. Will Con't monitor. GI: placed Dobbhoff on 03/20. After placement was verified via abdominal x-ray, we started tube feeds. * RISS * Tube feeds * Protonix Con't Synthroid. FULL CODE NPO ALPS DVT PPX Problem List: 1. Meningitis 2. Left otitis media 3. Altered mental state 4. Lactic acidosis Pain Ratin Tomorrow's Labs & Rationales: icu cbc Plan DVT/Prophylaxis: pharmacological
[2016-03-25 14:50] LABS: ABSOLUTE BASOPHIL COUNT 0 /CUMM (0.0-0.2); ABSOLUTE EOSINOPHIL COUNT 0.1 /CUMM (0.0-0.7); ABSOLUTE GRANULOCYTE CT 27.1 /CUMM (1.4-6.5); ABSOLUTE LYMPH COUNT 1.7 /CUMM (1.2-3.4); ABSOLUTE MONOCYTE COUNT 1.6 /CUMM (0.10-0.60); BASOPHIL % 0 % (0.0-2.0); EOSINOPHIL % 0.2 % (0-5); GRANULOCYTE % 88.9 % (42.2-75.2); MEAN CORPUSCULAR HGB 28.9 PG (27.0-31.0); MEAN CORPUSCULAR HGB CONC 33.3 G/DL (33.0-37.0); MEAN CORPUSCULAR VOLUME 86.9 FL (81.0-99.0); MEAN PLATELET VOLUME 9.1 FL (7.4-10.4); PLATELET COUNT 271 /CUMM (130-400); RBC DISTRIBUTION WIDTH 13.3 % (11.5-14.5); RED BLOOD CELL CT 4.02 /CUMM (4.20-5.40)
[2016-03-25 14:56] LABS: WHITE BLOOD CELL COUNT 30.5 /CUMM (4.8-10.8)
--- NOTE | 2016-03-25 15:40 | PN- Neurology ---
Subjective Subjective: Coded this AM, now intubated in the ICU no clinical seizures noted by nursing staff Review of Systems: unobtainable Objective Vital Signs and I&Os Vital Signs Date Time Temp Pulse Resp B/P Pulse O2 O2 Flow FiO2 Ox Delivery Rate 03/25 1516 105 99/59 03/25 1338 60 03/25 1201 60 03/25 1200 100 Ventilator 60% 03/25 1200 98.3 96 15 120/70 100 Ventilator 60% 03/25 0831 103 52/0 03/25 0809 100 03/25 08 99 Ventilator 100% 03/25 08 96.7 92 26 120/62 99 Ventilator 100% 03/25 0734 105 95 03/25 0720 89 200/90 03/25 0643 88 98 03/25 0400 96 Nasal 2.0L Cannula 03/25 0000 98 Nasal 1.0L Cannula 03/25 0000 97.5 102 26 118/78 98 Nasal 1.0L Cannula 03/24 1999 96 Nasal 2.0L Cannula 03/24 1600 Nasal 2.0L Cannula 03/24 1600 98.3 77 22 130/82 96 Nasal 2.0L Cannula Intake & Output 03/25 1600 03/25 0800 03/25 0000 03/24 1600 03/24 0800 03/24 0000 Intake Total 2405.7 868 359 2409 1114 955 Output Total 600 600 650 900 650 630 Balance 1805.7 392 -153 372 464 325 Intake, IV 2405.7 322 239 742 495 596 Intake, Oral 0 0 0 0 Intake, Tube 480 163 285 429 244 Feeding Intake, Tube 190 95 245 190 115 Irrigant Number 0 0 1 0 0 1 Bowel Movements Output, 100 Gastric Drainage Output, Urine 500 600 650 900 650 630 Patient 182 lb Weight Physical Exam: Intubated. neck tone difficult to assess. No response to voice, best response is grimacing to touch such as passive eye opening to inspect pupils some non-purposeful movement of feet noted. Pupils midsize, equivocally reactive Oculocephalic reflexes absent gag reflex present on manipulation ETT DTRs suppressed, bilat babinski signs Current Medications: Current Medications Sig/Garrick Start time Last Medication Dose Route Stop Time Status Admin Acetaminophen 1,000 MG Q6-PRN PRN 03/17 1630 AC 03/20 N/A 1 UNIT IV 1552 Amlodipine Besylate 5 MG DAILY 03/25 1000 DC PO Amlodipine Besylate 2.5 MG DAILY 03/23 1315 DC 03/24 PO 0909 Ceftriaxone Sodium 2,000 MG Q12H 03/17 1515 AC 03/25 IV 03/28 1100 0326 Dextrose/Sodium 1,000 ML Q13H 03/22 0615 DC 03/24 Chloride IV 1317 Heparin Sodium 5,000 UNIT Q8 03/25 1400 AC 03/25 (Porcine) SC 1444 Hydralazine HCl 10 MG Q8 PRN 03/23 1315 AC 03/25 IV 0720 Insulin Human Regular 0 Q6 03/17 1800 AC 03/25 SC 1121 Levetiracetam 1,000 MG Q12H 03/25 1400 AC 03/25 Sodium Chloride 100 ML IV 1444 Levetiracetam 500 MG ONCE ONE 03/25 0330 DC 03/25 Sodium Chloride 100 ML IV 03/25 0344 0325 Levetiracetam 500 MG Q12H 03/25 0200 DC 03/25 Sodium Chloride 100 ML IV 0217 Levothyroxine Sodium 12.5 MCG DAILY 03/19 1000 AC 03/25 IV 0907 Lorazepam 1 MG Q1P PRN 03/25 1100 AC IV Lorazepam 2 MG ONE ONE 03/25 1000 DC 03/25 IV 03/25 1001 0957 Lorazepam 2 MG ONE ONE 03/25 0715 DC 03/25 IV 03/25 0716 0715 Lorazepam 1 MG ONCE ONE 03/25 0700 DC 03/25 IV 03/25 0701 0700 Lorazepam 1 MG ONCE ONE 03/24 1630 DC 03/24 IV 03/24 1631 1626 Lorazepam 1 MG Q2 HRS NEEDED PRN 03/17 2100 DC 03/24 IV 1240 Losartan Potassium 100 MG DAILY 03/20 2345 DC 03/24 PO 0909 Norepinephrine 4 MG Q3H 03/25 1445 AC 03/25 Dextrose/Water 250 ML IV 1516 Norepinephrine 4 MG Q24H 03/25 0830 AC 03/25 Dextrose/Water 250 ML IV 0831 Pantoprazole Sodium 40 MG DAILY 03/18 1000 AC 03/25 IV 0907 Phenylephrine HCl 40 MG Q24H 03/25 0845 AC 03/25 Sodium Chloride 250 ML IV 0833 Sodium Chloride 1,000 ML Q10H 03/25 1445 AC 03/25 IV 1444 Sodium Chloride 1,000 ML BOLUS ONE 03/25 0845 DC 03/25 IV 03/25 0944 0840 Sodium Chloride 500 ML BOLUS ONE 03/25 0830 DC 03/25 IV 03/25 0929 0830 Vancomycin HCl 1,000 MG Q12H 03/25 1200 AC 03/25 Dextrose/Water 250 ML IV 1251 Results Last 24 Hours of Lab Results: Laboratory Tests 03/25 03/25 1440 1435 Blood Gas pH (7.35 - 7.45 PH) 7.50 H pCO2 (35 - 45 TORR) 30 L pO2 (80 - 100 TORR) 263 H HCO3 (21 - 28 MEQ/L) 23 ABG O2 Sat (Measured) (>96.0 %) 99.0 P-50 (Temp Corrected) YES Carboxyhemoglobin (1.5 - 5.0 %) 0 L O2 Concentration % 60 Temperature (97.0 - 100.0 FARH) 98.3 Respiration Rate (BPM) 12 O2 Delivery Method VENT Vent Mode AC Expiratory Pressure (CMH2O/P) 5 Tidal Volume (CC) 500 Chemistry Sodium (137 - 145 mmol/L) 134 L Potassium (3.5 - 5.1 mmol/L) 4.2 Chloride (98 - 107 mmol/L) 100 Carbon Dioxide (22 - 30 mmol/L) 28 Anion Gap (5 - 16) 7 BUN (7 - 17 mg/dL) 20 H Creatinine (0.5 - 1.0 mg/dL) 0.7 Estimated GFR (>60 ml/min) > 60 Glucose (65 - 99 mg/dL) 379 H Lactic Acid (0.7 - 2.1 mmol/L) 1.5 Calcium (8.4 - 10.2 mg/dL) 8.0 L Phosphorus (2.5 - 4.5 mg/dL) 3.0 Magnesium (1.6 - 2.3 mg/dL) 1.7 Total Bilirubin (0.2 - 1.3 mg/dL) 0.7 AST (14 - 36 U/L) 24 ALT (9 - 52 U/L) 42 Troponin I (< 0.11 ng/ml) 0.21 *H Albumin (3.5 - 5.0 g/dL) 2.5 L Hematology CBC w Diff MAN DIFF ORDERED WBC (4.8 - 10.8 /CUMM) 30.5 *H RBC (4.20 - 5.40 /CUMM) 4.02 L Hgb (12.0 - 16.0 G/DL) 11.6 L Hct (37 - 47 %) 35.0 L MCV (81.0 - 99.0 FL) 86.9 MCH (27.0 - 31.0 PG) 28.9 RDW (11.5 - 14.5 %) 13.3 Plt Count (130 - 400 /CUMM) 271 MPV (7.4 - 10.4 FL) 9.1 Gran % (42.2 - 75.2 %) 88.9 H Lymphocytes % (20.5 - 51.1 %) 5.6 L Monocytes % (1.7 - 9.3 %) 5.3 Eosinophils % (0 - 5 %) 0.2 Basophils % (0.0 - 2.0 %) 0 L Absolute Granulocytes (1.4 - 6.5 /CUMM) 27.1 H Absolute Lymphocytes (1.2 - 3.4 /CUMM) 1.7 Absolute Monocytes (0.10 - 0.60 /CUMM) 1.6 H Absolute Eosinophils (0.0 - 0.7 /CUMM) 0.1 Absolute Basophils (0.0 - 0.2 /CUMM) 0 Platelet Estimate (ADEQUATE) VERIFIED BY SMEAR Polychromasia 1+ PUBS MCHC (33.0 - 37.0 G/DL) 33.3 Miscellaneous Phlebotomy Draw Site LEFT RADIAL 03/25 03/25 1102 0903 Blood Gas pH (7.35 - 7.45 PH) 7.55 H 7.49 H pCO2 (35 - 45 TORR) 25 L 27 L pO2 (80 - 100 TORR) 316 H 430 H HCO3 (21 - 28 MEQ/L) 21 20 L ABG O2 Sat (Measured) (>96.0 %) 99.0 99.0 P-50 (Temp Corrected) YES Carboxyhemoglobin (1.5 - 5.0 %) 0.3 L 0.3 L O2 Concentration % 75% 100 Temperature (97.0 - 100.0 FARH) 98.2 97.5 Respiration Rate (BPM) 20 26 O2 Delivery Method VENT VENT Vent Mode AC VC-AC Expiratory Pressure (CMH2O/P) 5 5 Tidal Volume (CC) 500 550 Miscellaneous Phlebotomy Draw Site LEFT RADIAL LEFT RADIAL 03/25 03/25 0824 0725 Blood Gas pH (7.35 - 7.45 PH) 7.28 *L pCO2 (35 - 45 TORR) 67 *H pO2 (80 - 100 TORR) 103 H HCO3 (21 - 28 MEQ/L) 31 H ABG O2 Sat (Measured) (>96.0 %) 97.0 P-50 (Temp Corrected) YES Carboxyhemoglobin (1.5 - 5.0 %) 0.5 L O2 Concentration % 40 Temperature (97.0 - 100.0 FARH) 97.5 Respiration Rate (BPM) 24 O2 Delivery Method BIPAP Vent Mode BIPAP Expiratory Pressure (CM H2O P) 6 Inspiratory Pressure (CM H2O P) 14 Chemistry Sodium (137 - 145 mmol/L) 136 L Potassium (3.5 - 5.1 mmol/L) 4.2 Chloride (98 - 107 mmol/L) 99 Carbon Dioxide (22 - 30 mmol/L) 28 Anion Gap (5 - 16) 9 BUN (7 - 17 mg/dL) 20 H Creatinine (0.5 - 1.0 mg/dL) 0.9 Estimated GFR (>60 ml/min) > 60 Glucose (65 - 99 mg/dL) 398 H Lactic Acid (0.7 - 2.1 mmol/L) 4.0 H Calcium (8.4 - 10.2 mg/dL) 8.8 Phosphorus (2.5 - 4.5 mg/dL) 5.5 H Magnesium (1.6 - 2.3 mg/dL) 2.0 Total Bilirubin (0.2 - 1.3 mg/dL) 0.6 AST (14 - 36 U/L) 27 ALT (9 - 52 U/L) 43 Troponin I (< 0.11 ng/ml) 0.04 Albumin (3.5 - 5.0 g/dL) 2.8 L Coagulation PT (9.4 - 12.5 SEC) 13.3 H INR (0.90 - 1.19) 1.27 H Hematology CBC w Diff NO MAN DIFF REQ WBC (4.8 - 10.8 /CUMM) 22.8 H RBC (4.20 - 5.40 /CUMM) 4.32 Hgb (12.0 - 16.0 G/DL) 12.3 Hct (37 - 47 %) 37.8 MCV (81.0 - 99.0 FL) 87.4 MCH (27.0 - 31.0 PG) 28.5 RDW (11.5 - 14.5 %) 13.5 Plt Count (130 - 400 /CUMM) 272 MPV (7.4 - 10.4 FL) 9.5 Gran % (42.2 - 75.2 %) 82.5 H Lymphocytes % (20.5 - 51.1 %) 10.7 L Monocytes % (1.7 - 9.3 %) 4.8 Eosinophils % (0 - 5 %) 1.8 Basophils % (0.0 - 2.0 %) 0.2 Absolute Granulocytes (1.4 - 6.5 /CUMM) 18.8 H Absolute Lymphocytes (1.2 - 3.4 /CUMM) 2.4 Absolute Monocytes (0.10 - 0.60 /CUMM) 1.1 H Absolute Eosinophils (0.0 - 0.7 /CUMM) 0.4 Absolute Basophils (0.0 - 0.2 /CUMM) 0 PUBS MCHC (33.0 - 37.0 G/DL) 32.6 L Miscellaneous Phlebotomy Draw Site LEFT RADIAL 03/25 03/24 03/24 0320 1700 1700 Chemistry Sodium (137 - 145 mmol/L) 135 L Potassium (3.5 - 5.1 mmol/L) 4.4 Chloride (98 - 107 mmol/L) 100 Carbon Dioxide (22 - 30 mmol/L) 30 Anion Gap (5 - 16) 6 BUN (7 - 17 mg/dL) 18 H Creatinine (0.5 - 1.0 mg/dL) 0.5 Estimated GFR (>60 ml/min) > 60 Glucose (65 - 99 mg/dL) 284 H Calcium (8.4 - 10.2 mg/dL) 8.7 Phosphorus (2.5 - 4.5 mg/dL) 3.4 Magnesium (1.6 - 2.3 mg/dL) 1.7 Total Bilirubin (0.2 - 1.3 mg/dL) 0.8 AST (14 - 36 U/L) 26 ALT (9 - 52 U/L) 42 Albumin (3.5 - 5.0 g/dL) 2.8 L Hematology CBC w Diff NO MAN DIFF REQ WBC (4.8 - 10.8 /CUMM) 20.8 H RBC (4.20 - 5.40 /CUMM) 4.25 Hgb (12.0 - 16.0 G/DL) 12.1 Hct (37 - 47 %) 37.2 MCV (81.0 - 99.0 FL) 87.5 MCH (27.0 - 31.0 PG) 28.4 RDW (11.5 - 14.5 %) 14.2 Plt Count (130 - 400 /CUMM) 231 MPV (7.4 - 10.4 FL) 9.5 Gran % (42.2 - 75.2 %) 83.6 H Lymphocytes % (20.5 - 51.1 %) 9.4 L Monocytes % (1.7 - 9.3 %) 5.9 Eosinophils % (0 - 5 %) 1.0 Basophils % (0.0 - 2.0 %) 0.1 Absolute Granulocytes (1.4 - 6.5 /CUMM) 17.4 H Absolute Lymphocytes (1.2 - 3.4 /CUMM) 2.0 Lymphocytes (%) 41 Absolute Monocytes (0.10 - 0.60 /CUMM) 1.2 H Absolute Eosinophils (0.0 - 0.7 /CUMM) 0.2 Absolute Basophils (0.0 - 0.2 /CUMM) 0 % Normal PMNs (%) 54 PUBS MCHC (33.0 - 37.0 G/DL) 32.4 L Misc Hematology Test (%) 5 Other Body Source CSF WBC (0 - 5 /CUMM) 42 *H CSF RBC (-0 /CUMM) 2 H CSF Comment CSF Glucose (40 - 70 mg/dL) 152 H CSF LDH (U/L) 378 CSF Total Protein (12 - 60 mg/dL) 119 H CSF Culture> GRAM STAIN Final -1923 WHITE BLOOD CELLS MODERATE GRAM POSITIVE COCCI PRESENT IN PAIRS Recent Imaging Studies: EEG in sedated state Background is 5-6 cps activity Intermittent sharp wave activity is present maximally in left central head region Brief episodes of electrographic seizure, left central and generalized apperar for 4-5 seconds duration Impression: Abnormal EEG due to left central sharp wave activity and brief electrographic seizures CT 03/24/16: No evidence for acute intracranial injury. Persistent left mastoid opacification. 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
--- NOTE | 2016-03-25 15:49 | NUR ---
LATE ENTRY: AT 0800 PT WAS ON BIPAP WITH LABORED RESPIRATIONS. PER MD AVILA PLAN TO INTUBATE. 804 ANESTHESIA AT BEDSIDE, INTUBATION STARTED DURING INTUBATION PT BECAME BRADYCARDIC AND EVENTUALLY CODED, CODE CALLED. COMPRESSIONS STARTED, 1 DOSE OF EPI GIVEN. 808 PULSE RETURNED, TACHYCARDIC, PT DID HAVE AN EPISODE OF VTACH. B/P 52/00. LEVO STARTED AND TITRATED, SEE FLOW SHEET. PT BOLUSED WITH 1.5L TOTAL NS. B/P REMAINED LOW 84/00. DIANNE STARTED AT 35MCG, TITRATED PER PROTOCOL, SEE FLOW SHEET. PT WAS SUCCESSFULLY INTUBATED WITH AT #8 TO THE RIGHT LIP, OGT PLACED AND TAPED AT 55CM. VENT SETTINGS PER DR AVILA, SEE FLOW SHEET FOR VENT CHANGES. LABS DRAWN AFTER CODE AND SENT, EKG DONE. NEW IV PLACED TO LFA. FAMILY UPDATED BY DR AVILA AND TEAM.
--- NOTE | 2016-03-25 15:56 | NUR ---
[id number]: PT TITRATED OFF DIANNE GTT, SEE FLOW SHEET. REMAINS ON LEVO GTT, STARTING TO TITRATE DOWN. VENT SETTINGS PER ABG'S AND DR AVILA, SEE FLOW SHEET FOR VENT CHANGES. NO SEIZURE ACTIVITY NOTED DURING THIS SHIFT. PT REMAINS MINIMALLY RESPONSIVE. PUPILS SLUGGISH BUT REACTIVE. REPEAT EKG AND LABS DRAWN AT 1415. TROPOIN 0.21, REPORTED TO MD PENALOZA. PREVIOUS TROPONIN 0.04. NEXT EKG AND TROPONIN DUE AT 2014. FAMILY REMAINS AT BEDSIDE.
[2016-03-25 16:00] VITALS: BP 118/58
--- NOTE | 2016-03-25 21:13 | NUR ---
2000 REC'D PT IN BED. PT RESPONDS ONLY TO TACTILE STIMULI WHEN ORALLY SUCTIONING, FACIAL GRIMACE, MOVES TOES WHEN STROKED, NO HAND SQUEEZING & DOES NOT OPEN EYES AT ALL. AREILS 5MM BRISK. ST/SR ON THE MONITOR HR 90-100'S. SBP 100'S CORRELATING TO BOTH CUFFS. ON LEVO GTT @4MCG/MIN. ON THE VENT AC MODE RATE10/ VT 450/ FIO2 40%/ PEEP 5, POX 99%. LS CLEAR & DIMINISHED AT THE BASES MIN SECRETIONS VIA ETT/ORALLY. FC INSITU & DRAINING LEANNA URINE. OGT INSITU TO LWS BROWN SECRETIONS. CONT TO MONITOR.
[2016-03-26] VITALS: BP 100/60
--- NOTE | 2016-03-26 04:57 | NUR ---
WENT IN TO DO VS & ASSESSMENT. NOTICED PT HAD A SEIZURE TO RUE/SIDE STIFFNESS/ SHAKINESS BUT NO MOVT TO RLE OR THE OPPOSITE SITE. WHICH LASTED APPROX < 1MIN INFORMED DR. REVELES RE. PT'S STATUS. ATIVAN 1MG IVP GIVEN @6034. NO CONT SEDATION GTT WILL DISCUSS WITH AM TEAM. ARELIS 3MM SLUGGISH. CONT TO MONITOR.
[2016-03-26 05:24] LABS: ABSOLUTE BASOPHIL COUNT 0.2 /CUMM (0.0-0.2); ABSOLUTE EOSINOPHIL COUNT 0.1 /CUMM (0.0-0.7); ABSOLUTE GRANULOCYTE CT 13.8 /CUMM (1.4-6.5); ABSOLUTE LYMPH COUNT 2.5 /CUMM (1.2-3.4); ABSOLUTE MONOCYTE COUNT 1.4 /CUMM (0.10-0.60); EOSINOPHIL % 0.8 % (0-5); GRANULOCYTE % 76.2 % (42.2-75.2); MEAN CORPUSCULAR HGB 28.7 PG (27.0-31.0); MEAN CORPUSCULAR VOLUME 87.1 FL (81.0-99.0); PLATELET COUNT 177 /CUMM (130-400); RBC DISTRIBUTION WIDTH 13.7 % (11.5-14.5); RED BLOOD CELL CT 3.37 /CUMM (4.20-5.40); WHITE BLOOD CELL COUNT 18.1 /CUMM (4.8-10.8)
[2016-03-26 05:35] LABS: HEMATOCRIT 29.3 % (37-47)
--- NOTE | 2016-03-26 06:28 | RADIOLOGY REPORT ---
EXAMINATION: CHEST 1 VIEW CLINICAL INFORMATION: Endotracheal tube placement. COMPARISON: 03/25/2016. TECHNIQUE: An AP view of the chest is provided. FINDINGS: An endotracheal tube is in place. The tip is difficult to discern due to patient rotation and overlying tubes, but is likely approximately 7 cm above the eugenio. An enteric tube is in place. The tip terminates within the stomach. Cardiac silhouette is stable. The mediastinal and hilar contours are unremarkable. There are neither pleural effusions nor pneumothoraces. There are no consolidations. IMPRESSION: Endotracheal tube and enteric tube in place. No consolidations.
[2016-03-26 08:00] VITALS: BP 108/58
--- NOTE | 2016-03-26 10:45 | PN- Infect Dx ---
Subjective Subjective: Afebrile. A right-sided seizure was noted overnight lasting less than a minute. Her blood pressure is stable with pressors being weaned off and her FiO2 requirements have been decreasing. Objective Last 24 Hrs of Vital Signs/I&O Vital Signs Date Time Temp Pulse Resp B/P Pulse O2 O2 Flow FiO2 Ox Delivery Rate 03/26 0810 30 03/26 0611 30 03/26 0545 90 104/62 03/26 0400 97 Ventilator 30% 03/26 0310 30 03/26 0219 89 101/57 03/26 0018 30 03/26 0000 97.2 94 17 100/60 98 Ventilator 30% 03/26 0000 98 Ventilator 30% 03/25 2326 96 92/54 03/25 2202 30 03/25 2000 99 Ventilator 40% 03/25 1855 40 03/25 1600 99 Ventilator 40% 03/25 1600 99.2 104 22 118/58 99 Ventilator 40% 03/25 1557 40 03/25 1516 105 99/59 03/25 1338 60 03/25 1201 60 03/25 1200 100 Ventilator 60% 03/25 1200 98.3 96 15 120/70 100 Ventilator 60% Intake & Output 03/26 1600 03/26 0800 03/26 0000 Intake Total 985 1337 Output Total 350 530 Balance 635 807 Intake, IV 985 1337 Intake, Other 0 0 Number 0 0 Bowel Movements Output, 50 30 Gastric Drainage Output, Urine 300 500 Physical Exam Other Physical Findings: She responds to voice by attempting to open her eyes. She remains on the ventilator Neck relatively supple Lungs are clear Heart regular rhythm with a 3/6 murmur unchanged Extremities no cyanosis, clubbing or edema; PICC in the right upper extremity with no inflammation at the site Neuro no new focality Dominguez catheter remains in place Results Last 24 Hours of Lab Results: Laboratory Tests 03/26 03/26 03/25 0500 209 2014 Chemistry Sodium (137 - 145 mmol/L) 137 Potassium (3.5 - 5.1 mmol/L) 3.5 Chloride (98 - 107 mmol/L) 104 Carbon Dioxide (22 - 30 mmol/L) 28 Anion Gap (5 - 16) 4 L BUN (7 - 17 mg/dL) 17 Creatinine (0.5 - 1.0 mg/dL) 0.7 Estimated GFR (>60 ml/min) > 60 Glucose (65 - 99 mg/dL) 189 H Calcium (8.4 - 10.2 mg/dL) 7.5 L Phosphorus (2.5 - 4.5 mg/dL) 2.2 L Magnesium (1.6 - 2.3 mg/dL) 1.7 Total Bilirubin (0.2 - 1.3 mg/dL) 0.6 AST (14 - 36 U/L) 18 ALT (9 - 52 U/L) 37 Troponin I (< 0.11 ng/ml) 0.23 *H 0.27 *H Albumin (3.5 - 5.0 g/dL) 2.1 L Hematology CBC w Diff NO MAN DIFF REQ WBC (4.8 - 10.8 /CUMM) 18.1 H RBC (4.20 - 5.40 /CUMM) 3.37 L Hgb (12.0 - 16.0 G/DL) 9.7 L Hct (37 - 47 %) 29.3 L MCV (81.0 - 99.0 FL) 87.1 MCH (27.0 - 31.0 PG) 28.7 RDW (11.5 - 14.5 %) 13.7 Plt Count (130 - 400 /CUMM) 177 MPV (7.4 - 10.4 FL) 9.0 Gran % (42.2 - 75.2 %) 76.2 H Lymphocytes % (20.5 - 51.1 %) 14.0 L Monocytes % (1.7 - 9.3 %) 8.0 Eosinophils % (0 - 5 %) 0.8 Basophils % (0.0 - 2.0 %) 1.0 Absolute Granulocytes (1.4 - 6.5 /CUMM) 13.8 H Absolute Lymphocytes (1.2 - 3.4 /CUMM) 2.5 Absolute Monocytes (0.10 - 0.60 /CUMM) 1.4 H Absolute Eosinophils (0.0 - 0.7 /CUMM) 0.1 Absolute Basophils (0.0 - 0.2 /CUMM) 0.2 PUBS MCHC (33.0 - 37.0 G/DL) 33.0 03/25 03/25 1850 1440 Blood Gas pH (7.35 - 7.45 PH) 7.51 H 7.50 H pCO2 (35 - 45 TORR) 31 L 30 L pO2 (80 - 100 TORR) 158 H 263 H HCO3 (21 - 28 MEQ/L) 24 23 ABG O2 Sat (Measured) (>96.0 %) 99.0 99.0 P-50 (Temp Corrected) N YES Carboxyhemoglobin (1.5 - 5.0 %) 0.3 L 0 L O2 Concentration % .40 60 Temperature (97.0 - 100.0 FARH) 98.3 Respiration Rate (BPM) 10 12 O2 Delivery Method VENT VENT Vent Mode A/C AC Expiratory Pressure (CMH2O/P) 5 5 Tidal Volume (CC) 450 500 Miscellaneous Phlebotomy Draw Site LEFT BRACHIAL LEFT RADIAL 03/25 03/25 1435 1102 Blood Gas pH (7.35 - 7.45 PH) 7.55 H pCO2 (35 - 45 TORR) 25 L pO2 (80 - 100 TORR) 316 H HCO3 (21 - 28 MEQ/L) 21 ABG O2 Sat (Measured) (>96.0 %) 99.0 P-50 (Temp Corrected) YES Carboxyhemoglobin (1.5 - 5.0 %) 0.3 L O2 Concentration % 75% Temperature (97.0 - 100.0 FARH) 98.2 Respiration Rate (BPM) 20 O2 Delivery Method VENT Vent Mode AC Expiratory Pressure (CMH2O/P) 5 Tidal Volume (CC) 500 Chemistry Sodium (137 - 145 mmol/L) 134 L Potassium (3.5 - 5.1 mmol/L) 4.2 Chloride (98 - 107 mmol/L) 100 Carbon Dioxide (22 - 30 mmol/L) 28 Anion Gap (5 - 16) 7 BUN (7 - 17 mg/dL) 20 H Creatinine (0.5 - 1.0 mg/dL) 0.7 Estimated GFR (>60 ml/min) > 60 Glucose (65 - 99 mg/dL) 379 H Lactic Acid (0.7 - 2.1 mmol/L) 1.5 Calcium (8.4 - 10.2 mg/dL) 8.0 L Phosphorus (2.5 - 4.5 mg/dL) 3.0 Magnesium (1.6 - 2.3 mg/dL) 1.7 Total Bilirubin (0.2 - 1.3 mg/dL) 0.7 AST (14 - 36 U/L) 24 ALT (9 - 52 U/L) 42 Troponin I (< 0.11 ng/ml) 0.21 *H Albumin (3.5 - 5.0 g/dL) 2.5 L Hematology CBC w Diff MAN DIFF ORDERED WBC (4.8 - 10.8 /CUMM) 30.5 *H RBC (4.20 - 5.40 /CUMM) 4.02 L Hgb (12.0 - 16.0 G/DL) 11.6 L Hct (37 - 47 %) 35.0 L MCV (81.0 - 99.0 FL) 86.9 MCH (27.0 - 31.0 PG) 28.9 RDW (11.5 - 14.5 %) 13.3 Plt Count (130 - 400 /CUMM) 271 MPV (7.4 - 10.4 FL) 9.1 Gran % (42.2 - 75.2 %) 88.9 H Lymphocytes % (20.5 - 51.1 %) 5.6 L Monocytes % (1.7 - 9.3 %) 5.3 Eosinophils % (0 - 5 %) 0.2 Basophils % (0.0 - 2.0 %) 0 L Absolute Granulocytes (1.4 - 6.5 /CUMM) 27.1 H Absolute Lymphocytes (1.2 - 3.4 /CUMM) 1.7 Absolute Monocytes (0.10 - 0.60 /CUMM) 1.6 H Absolute Eosinophils (0.0 - 0.7 /CUMM) 0.1 Absolute Basophils (0.0 - 0.2 /CUMM) 0 Platelet Estimate (ADEQUATE) VERIFIED BY SMEAR Polychromasia 1+ PUBS MCHC (33.0 - 37.0 G/DL) 33.3 Miscellaneous Phlebotomy Draw Site LEFT RADIAL Last 24 Hours of [place] Results: Blood cultures March 23 remain negative Blood cultures March 25 negative CSF culture March 24 negative Sputum culture March 25 scant growth of Staph aureus and strep pneumoniae Recent Imaging Studies: Chest x-ray March 26, personally reviewed, negative Assessment/Plan Impression: Improvement in her status compared to yesterday, status post cardiac and respiratory arrest, with decreasing pressors and with decreasing oxygen requirements. 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 She continues to have seizure activity despite Keppra, with the EEG revealing a focus on the left, but with her recent CT scan negative for any focal process. Her repeat CSF was much improved with a marked decrease in her white blood cells and protein and with the culture so far negative, suggesting that the "positive" gram stain may have represented artifact or organisms. The new murmur raises concern for endocarditis, though her repeat transthoracic echo was negative, and she is scheduled for a SAMUEL when her condition stabilizes. Suggestion: 1. Contact isolation pending final sputum culture 2. Follow-up final CSF and sputum cultures 3. Await SAMUEL when stable 4. Eventual MRI of the head when able 5. Continue Ceftriaxone and Vancomycin pending above
--- NOTE | 2016-03-26 13:16 | PN- Resident CRCU ---
See Addendum Subjective HPI/CRCU Issues: Patient in ICU for: Strep pneumo meningitis, new onset seizure, intubated, status post cardiac arrest. Overnight, patient was noted to have a seizure involving clonic movement of her right arm. She had another witnessed episode later on in the morning. Her pressors were slowly being weaned off, she is completely of Rashid-Synephrine, we are continuing to titrate down lately Levophed. FiO2 requirements are decreasing as well patient is a much less responsive than 48 hours ago however, she is able to flutter her eyelids when she is addressed. Overnight her vitals have been relatively stable. Blood pressure in the 90s and 100s despite decreasing pressors. RR in 20s. Objective Vital Signs & I&O Last 8 Hrs of Vitals and I&O: Laboratory Tests 03/26 03/26 03/25 0500 0210 2014 Chemistry Sodium (137 - 145 mmol/L) 137 Potassium (3.5 - 5.1 mmol/L) 3.5 Chloride (98 - 107 mmol/L) 104 Carbon Dioxide (22 - 30 mmol/L) 28 Anion Gap (5 - 16) 4 L BUN (7 - 17 mg/dL) 17 Creatinine (0.5 - 1.0 mg/dL) 0.7 Estimated GFR (>60 ml/min) > 60 Glucose (65 - 99 mg/dL) 189 H Calcium (8.4 - 10.2 mg/dL) 7.5 L Phosphorus (2.5 - 4.5 mg/dL) 2.2 L Magnesium (1.6 - 2.3 mg/dL) 1.7 Total Bilirubin (0.2 - 1.3 mg/dL) 0.6 AST (14 - 36 U/L) 18 ALT (9 - 52 U/L) 37 Troponin I (< 0.11 ng/ml) 0.23 *H 0.27 *H Albumin (3.5 - 5.0 g/dL) 2.1 L Hematology CBC w Diff NO MAN DIFF REQ WBC (4.8 - 10.8 /CUMM) 18.1 H RBC (4.20 - 5.40 /CUMM) 3.37 L Hgb (12.0 - 16.0 G/DL) 9.7 L Hct (37 - 47 %) 29.3 L MCV (81.0 - 99.0 FL) 87.1 MCH (27.0 - 31.0 PG) 28.7 RDW (11.5 - 14.5 %) 13.7 Plt Count (130 - 400 /CUMM) 177 MPV (7.4 - 10.4 FL) 9.0 Gran % (42.2 - 75.2 %) 76.2 H Lymphocytes % (20.5 - 51.1 %) 14.0 L Monocytes % (1.7 - 9.3 %) 8.0 Eosinophils % (0 - 5 %) 0.8 Basophils % (0.0 - 2.0 %) 1.0 Absolute Granulocytes (1.4 - 6.5 /CUMM) 13.8 H Absolute Lymphocytes (1.2 - 3.4 /CUMM) 2.5 Absolute Monocytes (0.10 - 0.60 /CUMM) 1.4 H Absolute Eosinophils (0.0 - 0.7 /CUMM) 0.1 Absolute Basophils (0.0 - 0.2 /CUMM) 0.2 PUBS MCHC (33.0 - 37.0 G/DL) 33.0 03/25 03/25 1850 1440 Blood Gas pH (7.35 - 7.45 PH) 7.51 H 7.50 H pCO2 (35 - 45 TORR) 31 L 30 L pO2 (80 - 100 TORR) 158 H 263 H HCO3 (21 - 28 MEQ/L) 24 23 ABG O2 Sat (Measured) (>96.0 %) 99.0 99.0 P-50 (Temp Corrected) N YES Carboxyhemoglobin (1.5 - 5.0 %) 0.3 L 0 L O2 Concentration % .40 60 Temperature (97.0 - 100.0 FARH) 98.3 Respiration Rate (BPM) 10 12 O2 Delivery Method VENT VENT Vent Mode A/C AC Expiratory Pressure (CMH2O/P) 5 5 Tidal Volume (CC) 450 500 Miscellaneous Phlebotomy Draw Site LEFT BRACHIAL LEFT RADIAL 03/25 1435 Chemistry Sodium (137 - 145 mmol/L) 134 L Potassium (3.5 - 5.1 mmol/L) 4.2 Chloride (98 - 107 mmol/L) 100 Carbon Dioxide (22 - 30 mmol/L) 28 Anion Gap (5 - 16) 7 BUN (7 - 17 mg/dL) 20 H Creatinine (0.5 - 1.0 mg/dL) 0.7 Estimated GFR (>60 ml/min) > 60 Glucose (65 - 99 mg/dL) 379 H Lactic Acid (0.7 - 2.1 mmol/L) 1.5 Calcium (8.4 - 10.2 mg/dL) 8.0 L Phosphorus (2.5 - 4.5 mg/dL) 3.0 Magnesium (1.6 - 2.3 mg/dL) 1.7 Total Bilirubin (0.2 - 1.3 mg/dL) 0.7 AST (14 - 36 U/L) 24 ALT (9 - 52 U/L) 42 Troponin I (< 0.11 ng/ml) 0.21 *H Albumin (3.5 - 5.0 g/dL) 2.5 L Hematology CBC w Diff MAN DIFF ORDERED WBC (4.8 - 10.8 /CUMM) 30.5 *H RBC (4.20 - 5.40 /CUMM) 4.02 L Hgb (12.0 - 16.0 G/DL) 11.6 L Hct (37 - 47 %) 35.0 L MCV (81.0 - 99.0 FL) 86.9 MCH (27.0 - 31.0 PG) 28.9 RDW (11.5 - 14.5 %) 13.3 Plt Count (130 - 400 /CUMM) 271 MPV (7.4 - 10.4 FL) 9.1 Gran % (42.2 - 75.2 %) 88.9 H Lymphocytes % (20.5 - 51.1 %) 5.6 L Monocytes % (1.7 - 9.3 %) 5.3 Eosinophils % (0 - 5 %) 0.2 Basophils % (0.0 - 2.0 %) 0 L Absolute Granulocytes (1.4 - 6.5 /CUMM) 27.1 H Absolute Lymphocytes (1.2 - 3.4 /CUMM) 1.7 Absolute Monocytes (0.10 - 0.60 /CUMM) 1.6 H Absolute Eosinophils (0.0 - 0.7 /CUMM) 0.1 Absolute Basophils (0.0 - 0.2 /CUMM) 0 Platelet Estimate (ADEQUATE) VERIFIED BY SMEAR Polychromasia 1+ PUBS MCHC (33.0 - 37.0 G/DL) 33.3 Exam General Appearance: sedated, intubated, lethargic Head: atraumatic Neck: supple Respiratory: normal breath sounds Cardiovascular: regular rate/rhythm Gastrointestinal: soft, non-tender IV Drips IV Drips: Levophed 2mcg holding TPN Nutrition Nutrition: NPO Current Medications: Current Medications Sig/Garrick Start time Last Medication Dose Route Stop Time Status Admin Acetaminophen 1,000 MG Q6-PRN PRN 03/17 1630 03/20 N/A 1 UNIT IV 1552 Amlodipine Besylate 5 MG DAILY 03/25 1000 DC PO Ceftriaxone Sodium 2,000 MG Q12H 03/17 1515 AC 03/26 IV 03/28 1100 0227 Heparin Sodium 5,000 UNIT Q8 03/25 1400 AC 03/26 (Porcine) SC 0632 Hydralazine HCl 10 MG Q8 PRN 03/23 1315 AC 03/25 IV 0720 Insulin Human Regular 0 Q6 03/17 1800 AC 03/26 SC 1202 Levetiracetam 1,000 MG Q12H 03/25 1400 AC 03/26 Sodium Chloride 100 ML IV 0219 Levothyroxine Sodium 12.5 MCG DAILY 03/19 1000 AC 03/26 IV 1004 Lorazepam 1 MG Q1P PRN 03/25 1100 AC 03/26 IV 0434 Losartan Potassium 100 MG DAILY 03/20 2345 DC 03/24 PO 0909 Magnesium Sulfate 1 GM ONCE ONE 03/26 0800 MT 03/26 Dextrose/Water 100 ML IV 03/26 1159 1004 Norepinephrine 4 MG Q24H 03/26 0100 AC Dextrose/Water 250 ML IV Norepinephrine 4 MG .STK-MED ONE 03/25 1510 DC IV 03/25 1511 Norepinephrine 4 MG Q3H 03/25 1445 MT 03/25 Dextrose/Water 250 ML IV 2326 Norepinephrine 4 MG Q24H 03/25 0830 MT 03/25 Dextrose/Water 250 ML IV 0831 Pantoprazole Sodium 40 MG DAILY 03/18 1000 AC 03/26 IV 1004 Phenylephrine HCl 40 MG Q24H 03/25 0845 MT 03/25 Sodium Chloride 250 ML IV 0833 Potassium Chloride 40 MEQ Q10H 03/26 0800 AC 03/26 Dextrose/Sodium 1,000 ML IV 0900 Chloride Sodium Chloride 1,000 ML Q10H 03/25 1445 MT 03/26 IV 0218 Valproate Sodium 500 MG Q8H 03/26 1800 AC Sodium Chloride 100 ML IV Valproate Sodium 1,000 MG ONCE ONE 03/26 1015 DC 03/26 Sodium Chloride 100 ML IV 03/26 1120 1037 Vancomycin HCl 1,000 MG Q12H 03/25 1200 AC 03/26 Dextrose/Water 250 ML IV 1204 Impression/Plan Impression/Problem List Impression: This is a 70 year old female with PMH of hypotension, hyperlipidemia, hypothyroidism DM who came was brought to hospital after being found unresponsive. She had one day of otalgia and difficulty hearing. Found down and unresponsive, subsequently brought to . In ED was found to have Tmax 102, AMS/ agitation, CT with pneumocephalus in temporal lobe, and opacification of mastoid air cells. Due to concern for bacterial meningitis 2/2 otitis she was admitted to ICU. PLAN Respiratory: Pt was intubated on 03/15/2016; she is off neosynephrine and is on 2mcg of levophed. Her RR is 16-20s. Tidal volume at 450. * Con't mechanical ventilation * Recheck ABG * Aspiration precautions Neuro/ID: 1. Step Pneumo Meningitis: Patient has strep pneumo meningitis confirmed by CSF culture and blood culture. She finished her 4 day course of Decadron. Initial CSF white count was over 20,000 and repeat LP showed white blood cell of 42. Of note, during admission she had a new 3/6 systolic murmur heard 3 days ago. There is concern for endocarditis in the setting of strep pneumo bacteremia. 2x TTEs have both been negative for any valvular pathology. Of particular concern is that her white count is up trending from its pilar of 13, 3 days ago to 30 yesterday; however she went down to 18 today. Of note she was started on vanco in addition to her ceftriaxone yesterday. Note that one culture of her LRC grew staph aureus. Concern for aspiration with MRSA; however cxr - and sensitivities pending. * This is 9th day of antibiotics; continue ceftriaxone and vancomycin. * Repeat BCX: ngtd * Repeat Ucx: ngtd * Repeat Echo-showed no evidence of valvular vegetation. Will likely need SAMUEL. * Cardio consult for possible SAMUEL today * Negative cxr-no evidence of PNA * Follow final cultures and speciation/sensitivity for LRC 2. New onset Seizures: Patient has new onset seizures which started early a.m. on 03/24/2016. Since then she has had a repeat seizure activity, at least 2 episodes of GTC. The rest seem to be focal, localized to her right arm. EEG shows corresponding epileptiform activity in left hemisphere. Patient was initially started on Keppra 500 twice a day and increased with thousand twice a day. However this AM she continues to have seizures so we consult. Neuro and decided to start her on a second anticonvulsant medication. * Appreciate Neurology consult * Start Keppra 500 iv BID--> Increased to 1000 BID * Start Depakote IV 500 every 8, after loading dose. CVS: Patient has history of diabetes, hypertension. Patient was started on Levophed 20 g and Rashid-Synephrine for pressure support. Rashid-Synephrine has been weaned off. The foot is at 2 g * Hold all antihypertensives * Wean off Levophed and Rashid-Synephrine as tolerated Heme/Onc: Stable. Will con't monitor. Msk: moving all extremeties spontaneously. Stable. Will Con't monitor. GI: placed Dobbhoff on 03/20. Holding tube feeds * RISS * Tube feeds * Protonix Con't Synthroid. FULL CODE NPO ALPS DVT PPX Problem List: 1. Meningitis 2. Altered mental state 3. Left otitis media 4. Sepsis 5. Lactic acidosis Pain Ratin Tomorrow's Labs & Rationales: ICU CBC Plan DVT/Prophylaxis: pharmacological
[2016-03-26 16:00] VITALS: BP 96/58
--- NOTE | 2016-03-26 19:53 | NUR ---
SHIFT NOTE 0800: RECEIVED PATIENT AROUSABLE TO TACTILE STIMULI AND OCCASIONALLY VERBAL STIMULI WITH NONPURPOSEFUL MOVEMENTS (PARTICULARLY TO THE RIGHT SIDE). SHE HAS EXTRA MOVEMENTS/SEIZURE-LIKE TO THE RIGHT ARM/SHOULDER INTERMITTENTLY. ON SEIZURE PRECAUTIONS. DEPAKOTE AND KEPPRA GIVEN IV. PUPILS 3MM-5MM AND BRISKLY REACTIVE THROUGHOUT THE DAY. PATIENT PLACED ON CONTACT ISOLATION PRECAUTIONS FOR SUSPECTED MRSA IN THE SPUTUM PER DR. RAMIREZ. FAMILY EDUCATED ON PRECAUTIONS AND HANDWASHING. ORALLY INTUBATED WITH ETT# 8 TO THE RIGHT AT 25 CM AND MECHANICALLY VENTILATED WITH RATE OF 10, TV 450, FIO2 30 % AND PEEP OF 5. SATTING 98%. DEEP/ORALLY SUCTIONED FOR SCANT/WHITE SPUTUM. MOUTH CARE DONE. BITE BLOCK IN PLACE. BOTTOM LIP IS OPEN/EXCORIATING/BLEEDING WITH BITE BLOCK MOVEMENT. OTHERWISE SKIN INTACT, GENERALIZED +1 EDEMA NOTED. NSR 70S-90S ON THE FIRE EXTINGUISHER INSPECTOR, SBP=90S-110S. LEVOPHED GTT TURNED OFF AT 10 AM WITH GOOD EFFECT AND PATIENT ABLE TO MAINTAIN B/P. NS WITH 40 MEQ K RUNNING AT 100 MLS/HR FOR POTASSIUM OF 3.5. 1 GRAM RUN OF MAG GIVEN FOR MAG OF 1.7. NO ECTOPY ON THE MONITOR. ABDOMEN IS DISTENDED/SOFT, +BS, +FLATUS. OG TUBE TO ETT AT THE RIGHT. DRAINING SCANT BROWN FLUID BEFORE RESTARTING TUBE FEED AT ORIGINAL SETTINGS. GLUCERNA 1.2 TUBE FEED RESTARTED AT 15 MLS/HR WITH Q4 HOUR WATER FLUSHES OF [address] DRAINING CLEAR/LEANNA URINE. SAFETY MAINTAINED.
[2016-03-27] VITALS: BP 92/59
[2016-03-27 05:30] LABS: ABSOLUTE BASOPHIL COUNT 0 /CUMM (0.0-0.2); ABSOLUTE EOSINOPHIL COUNT 0.2 /CUMM (0.0-0.7); ABSOLUTE GRANULOCYTE CT 10.2 /CUMM (1.4-6.5); ABSOLUTE LYMPH COUNT 2.1 /CUMM (1.2-3.4); ABSOLUTE MONOCYTE COUNT 1.3 /CUMM (0.10-0.60); BASOPHIL % 0.2 % (0.0-2.0); EOSINOPHIL % 1.2 % (0-5); GRANULOCYTE % 74.1 % (42.2-75.2); HEMATOCRIT 26.2 % (37-47); MEAN CORPUSCULAR HGB 28.5 PG (27.0-31.0); MEAN CORPUSCULAR VOLUME 86.6 FL (81.0-99.0); MEAN PLATELET VOLUME 10.1 FL (7.4-10.4); PLATELET COUNT 147 /CUMM (130-400); RBC DISTRIBUTION WIDTH 13.6 % (11.5-14.5); RED BLOOD CELL CT 3.02 /CUMM (4.20-5.40); WHITE BLOOD CELL COUNT 13.8 /CUMM (4.8-10.8)
[2016-03-27 08:00] VITALS: BP 126/70
--- NOTE | 2016-03-27 10:04 | PN- CRCU ---
Subjective HPI/Critical Care Issues: The patient is much more awake today. She is following commands, noting that she is squeezing with her left hand. She is able to wiggle her toes bilaterally. She is tracking with her eyes. She remains on mechanical ventilation. Her right hand continues to twitch. She is tolerating tubefeeds. Objective Current Medications: Current Medications Sig/Garrick Start time Last Medication Dose Route Stop Time Status Admin Acetaminophen 1,000 MG Q6-PRN PRN 03/17 1630 AC 03/20 N/A 1 UNIT IV 1552 Ceftriaxone Sodium 2,000 MG Q12H 03/17 1515 AC 03/27 IV 03/28 1100 0251 Heparin Sodium 5,000 UNIT Q8 03/25 1400 AC 03/27 (Porcine) SC 0627 Hydralazine HCl 10 MG Q8 PRN 03/23 1315 AC 03/25 IV 0720 Insulin Human Regular 0 Q6 03/17 1800 AC 03/27 SC 0627 Levetiracetam 1,000 MG Q12H 03/25 1400 AC 03/27 Sodium Chloride 100 ML IV 0244 Levothyroxine Sodium 12.5 MCG DAILY 03/19 1000 AC 03/26 IV 1004 Lorazepam 1 MG Q1P PRN 03/25 1100 AC 03/26 IV 0434 Magnesium Sulfate 1 GM ONCE ONE 03/26 0800 DC 03/26 Dextrose/Water 100 ML IV 03/26 1159 1004 Norepinephrine 4 MG Q24H 03/26 0100 DC Dextrose/Water 250 ML IV Pantoprazole Sodium 40 MG DAILY 03/18 1000 AC 03/26 IV 1004 Phosphate 250 MG ONCE ONE 03/27 0745 DC PO 03/27 0746 Potassium Chloride 40 MEQ Q10H 03/26 0800 AC 03/26 Dextrose/Sodium 1,000 ML IV 2200 Chloride Valproate Sodium 500 MG Q8H 03/26 1800 AC 03/27 Sodium Chloride 100 ML IV 0244 Valproate Sodium 1,000 MG ONCE ONE 03/26 1015 DC 03/26 Sodium Chloride 100 ML IV 03/26 1120 1037 Vancomycin HCl 1,000 MG Q12H 03/25 1200 AC 03/27 Dextrose/Water 250 ML IV 0243 Vital Signs & I&O Last 24 Hrs of Vitals and I&O: Vital Signs Date Time Temp Pulse Resp B/P Pulse O2 O2 Flow FiO2 Ox Delivery Rate 03/27 0813 30 03/27 0606 30 03/27 0400 98 Ventilator 30% 03/27 0340 30 03/27 0148 30 03/27 0100 90 125/65 02/ 0000 98.4 88 17 92/59 98 Ventilator 30% 02/ 0000 98 Ventilator 30% 02/ 2219 30 02 2000 98 Ventilator 30% / 1926 30 03/26 1643 30 02 1600 96.9 90 18 96/58 98 Ventilator 30% 03/26 1600 97 Ventilator 30% 03/26 1439 30 03/26 1240 30 02 1200 98 Ventilator 30% 03/26 1037 90 108/50 Intake & Output 03/27 1600 03/27 0800 03/27 0000 Intake Total 1431 1309 Output Total 400 300 Balance 1031 1009 Intake, IV 1059 1066 Intake, Tube 182 53 Feeding Intake, Tube 190 190 Irrigant Number 0 0 Bowel Movements Output, Urine 400 300 Exam General Appearance: awake, comfortable, intubated Head: atraumatic Neck: limited range of motion Respiratory: chest non-tender, lungs clear, accessory muscle use Cardiovascular: S1 and S2 heard, positive systolic murmur Gastrointestinal: normal bowel sounds, soft, non-tender Extremities: no edema Impression/Plan Impression/Plan Impression/Plan: 1. Cardiopulmonary arrest in the setting of continued seizure activity despite Keppra and Ativan. 2. Pneumococcal meningitis and sepsis now with increased seizure activity, now on day 8 of treatment with ceftriaxone. 3. Respiratory failure secondary to ventilatory failure. 4. Malnutrition. 5. New systolic murmur, rule out etiology. Recommendations: * Decrease IVFs to 50 ml per hour. * Follow-up all culture data. * SAMUEL to be performed tomorrow. * Continue antibiotics as per ID. * Continue tube feeds with water flushes. Advance to goal as tolerated. * PRN ativan if seizure recurs, continue Keppra, we will follow neurology's recommendations. We'll need to discuss ongoing right hand twitching with neurology today. * SQ heparin for DVT prophylaxis. * The patient's family was updated at the bedside. * Continue all supportive care for now.
--- NOTE | 2016-03-27 10:32 | RADIOLOGY REPORT ---
EXAMINATION: XR PORTABLE CHEST CLINICAL INFORMATION: Rule out pulmonary pathology COMPARISON: X-ray chest 03/26/2016 and 03/25/2016. TECHNIQUE: Portable AP view of the chest was obtained. FINDINGS: The patient is rotated, tilted to the left and there is kyphosis. Monitoring devices overlie the patient. The endotracheal tube tip projects approximately 2 cm above the eugenio. There is an enteric tube extending below the diaphragm tip not included. Right PICC tip not well demonstrated but the catheter extends into the region of the SVC. No definite mediastinal or hilar mass. No alveolar edema. There is left retrocardiac opacity. There is hypoinflation. Curvilinear densities in the periphery of the right mid lower chest. No definite pneumothorax. Calcifications in the soft tissues adjacent to the greater tuberosity on each side. IMPRESSION: Limited exam. Bibasilar opacities. No significant interval change. The endotracheal tube tip now projects approximately 2 cm from the eugenio.
--- NOTE | 2016-03-27 11:02 | PN- Infect Dx ---
Subjective Subjective: Afebrile. She is off pressors. She has had no generalized seizure activity but continues to twitch in her right hand. She has been more responsive and communicative. Objective Last 24 Hrs of Vital Signs/I&O Vital Signs Date Time Temp Pulse Resp B/P Pulse O2 O2 Flow FiO2 Ox Delivery Rate 03/27 0813 30 03/27 0606 30 03/27 0400 98 Ventilator 30% 03/27 0340 30 03/27 0148 30 03/27 0100 90 125/65 03/27 0000 98.4 88 17 92/59 98 Ventilator 30% 03/27 0000 98 Ventilator 30% 03/26 2219 30 03/26 2000 98 Ventilator 30% 03/26 1926 30 03/26 1643 30 03/26 1600 96.9 90 18 96/58 98 Ventilator 30% 03/26 1600 97 Ventilator 30% 03/26 1439 30 03/26 1240 30 03/26 1200 98 Ventilator 30% Intake & Output 03/27 1600 03/27 0800 03/27 0000 Intake Total 1431 1309 Output Total 400 300 Balance 1031 1009 Intake, IV 1059 1066 Intake, Tube 182 53 Feeding Intake, Tube 190 190 Irrigant Number 0 0 Bowel Movements Output, Urine 400 300 Physical Exam Other Physical Findings: She is easily arousable and responding to questions and commands Lungs are clear Heart regular rhythm with a 3/6 systolic murmur Abdomen soft, nontender, positive bowel sounds Extremities trace edema both lower extremities; PICC in the right upper extremity with no inflammation at the site Neuro right arm weakness, with intermittent twitching Doimnguez catheter remains in place Results Last 24 Hours of Lab Results: Laboratory Tests 03/27 424 Chemistry Sodium (137 - 145 mmol/L) 138 Potassium (3.5 - 5.1 mmol/L) 4.1 Chloride (98 - 107 mmol/L) 106 Carbon Dioxide (22 - 30 mmol/L) 25 Anion Gap (5 - 16) 7 BUN (7 - 17 mg/dL) 13 Creatinine (0.5 - 1.0 mg/dL) 0.6 Estimated GFR (>60 ml/min) > 60 Glucose (65 - 99 mg/dL) 217 H Calcium (8.4 - 10.2 mg/dL) 7.4 L Phosphorus (2.5 - 4.5 mg/dL) 2.4 L Magnesium (1.6 - 2.3 mg/dL) 1.9 Total Bilirubin (0.2 - 1.3 mg/dL) 0.2 AST (14 - 36 U/L) 18 ALT (9 - 52 U/L) 33 Albumin (3.5 - 5.0 g/dL) 2.0 L Hematology CBC w Diff NO MAN DIFF REQ WBC (4.8 - 10.8 /CUMM) 13.8 H RBC (4.20 - 5.40 /CUMM) 3.02 L Hgb (12.0 - 16.0 G/DL) 8.6 L Hct (37 - 47 %) 26.2 L MCV (81.0 - 99.0 FL) 86.6 MCH (27.0 - 31.0 PG) 28.5 RDW (11.5 - 14.5 %) 13.6 Plt Count (130 - 400 /CUMM) 147 MPV (7.4 - 10.4 FL) 10.1 Gran % (42.2 - 75.2 %) 74.1 Lymphocytes % (20.5 - 51.1 %) 15.0 L Monocytes % (1.7 - 9.3 %) 9.5 H Eosinophils % (0 - 5 %) 1.2 Basophils % (0.0 - 2.0 %) 0.2 Absolute Granulocytes (1.4 - 6.5 /CUMM) 10.2 H Absolute Lymphocytes (1.2 - 3.4 /CUMM) 2.1 Absolute Monocytes (0.10 - 0.60 /CUMM) 1.3 H Absolute Eosinophils (0.0 - 0.7 /CUMM) 0.2 Absolute Basophils (0.0 - 0.2 /CUMM) 0 PUBS MCHC (33.0 - 37.0 G/DL) 33.0 Last 24 Hours of Keaton Results: Blood cultures March 25 negative Sputum culture March 25 positive for Staph aureus, sensitivities pending, with no strep pneumoniae isolated CSF culture March 24 negative Recent Imaging Studies: Chest x-ray March 27 bibasilar densities Assessment/Plan Impression: Improvement in her mental status, now more alert and responsive, with temperatures remaining normal and white blood cell count decreasing on Ceftriaxone now Day 10 of treatment for pneumococcal meningitis and Vancomycin Day 2 of treatment for possible aspiration pneumonia secondary to Staph aureus, with final sensitivities pending. She continues to have some evidence of seizure activity despite the addition of Depakote to Keppra, with the EEG revealing a focus on the left, but with her recent CT scan negative for any focal process. The new murmur raises concern for endocarditis, and she is scheduled for a SAMUEL in the a.m. Suggestion: 1. Await final sputum culture 2. Await SAMUEL in the a.m. 3. Eventual MRI of the head when able 4. Continue Ceftriaxone and Vancomycin pending above
--- NOTE | 2016-03-27 13:23 | PN- Resident CRCU ---
Subjective HPI/CRCU Issues: pt in ICU for bacterial meningitis Saw pt at bedside this AM. She looks much improved. She opened her eyes for me, was tracking me. Was able to squeeze my fingers on command. She seems to have decreased strength on right side however. Still intubated. Overnight her vitals remained stable. Her BP 110-120s systolic. No evidence of overt seizures. She does have some arm twitching but she had it even when she was awake and responsive to me. Unsure if this is of neuromuscular etiology or neurologic injury. Objective Vital Signs & I&O Last 8 Hrs of Vitals and I&O: Laboratory Tests 03/27 0425 Chemistry Sodium (137 - 145 mmol/L) 138 Potassium (3.5 - 5.1 mmol/L) 4.1 Chloride (98 - 107 mmol/L) 106 Carbon Dioxide (22 - 30 mmol/L) 25 Anion Gap (5 - 16) 7 BUN (7 - 17 mg/dL) 13 Creatinine (0.5 - 1.0 mg/dL) 0.6 Estimated GFR (>60 ml/min) > 60 Glucose (65 - 99 mg/dL) 217 H Calcium (8.4 - 10.2 mg/dL) 7.4 L Phosphorus (2.5 - 4.5 mg/dL) 2.4 L Magnesium (1.6 - 2.3 mg/dL) 1.9 Total Bilirubin (0.2 - 1.3 mg/dL) 0.2 AST (14 - 36 U/L) 18 ALT (9 - 52 U/L) 33 Albumin (3.5 - 5.0 g/dL) 2.0 L Hematology CBC w Diff NO MAN DIFF REQ WBC (4.8 - 10.8 /CUMM) 13.8 H RBC (4.20 - 5.40 /CUMM) 3.02 L Hgb (12.0 - 16.0 G/DL) 8.6 L Hct (37 - 47 %) 26.2 L MCV (81.0 - 99.0 FL) 86.6 MCH (27.0 - 31.0 PG) 28.5 RDW (11.5 - 14.5 %) 13.6 Plt Count (130 - 400 /CUMM) 147 MPV (7.4 - 10.4 FL) 10.1 Gran % (42.2 - 75.2 %) 74.1 Lymphocytes % (20.5 - 51.1 %) 15.0 L Monocytes % (1.7 - 9.3 %) 9.5 H Eosinophils % (0 - 5 %) 1.2 Basophils % (0.0 - 2.0 %) 0.2 Absolute Granulocytes (1.4 - 6.5 /CUMM) 10.2 H Absolute Lymphocytes (1.2 - 3.4 /CUMM) 2.1 Absolute Monocytes (0.10 - 0.60 /CUMM) 1.3 H Absolute Eosinophils (0.0 - 0.7 /CUMM) 0.2 Absolute Basophils (0.0 - 0.2 /CUMM) 0 PUBS MCHC (33.0 - 37.0 G/DL) 33.0 Exam General Appearance: awake, intubated Head: atraumatic, lips look severely traumatized 2/2 bite block. Ears, Nose, Throat: normal ENT inspection Neck: supple Respiratory: chest non-tender, no respiratory distress Cardiovascular: regular rate/rhythm Gastrointestinal: soft, non-tender Weaning Parameters NIF: 527 Minute Volume: 7.0 Resp rate: 15 Vt: 440 Heart Rate: 80 Weaning Schedule Start Time: 1019 Minute Volume: 10.3 Resp Rate: 30 Vt: 430 Heart Rate: 83 End Time: 1119 Minute Volume: 7.4 Resp Rate: 23 Vt: 250 Heart Rate: 92 Nutrition Nutrition: tube feeding Current Medications: Current Medications Sig/Garrick Start time Last Medication Dose Route Stop Time Status Admin Acetaminophen 1,000 MG Q6-PRN PRN 03/17 1630 AC 03/20 N/A 1 UNIT IV 1552 Ceftriaxone Sodium 2,000 MG Q12H 03/17 1515 AC 03/27 IV 03/28 1100 0251 Heparin Sodium 5,000 UNIT Q8 03/25 1400 AC 03/27 (Porcine) SC 0627 Hydralazine HCl 10 MG Q8 PRN 03/23 1315 AC 03/25 IV 0720 Insulin Human Regular 0 Q6 03/17 1800 AC 03/27 SC 1218 Levetiracetam 1,000 MG Q12H 03/25 1400 AC 03/27 Sodium Chloride 100 ML IV 0244 Levothyroxine Sodium 12.5 MCG DAILY 03/19 1000 AC 03/27 IV 1021 Lorazepam 1 MG Q1P PRN 03/25 1100 AC 03/26 IV 0434 Norepinephrine 4 MG Q24H 03/26 0100 DC Dextrose/Water 250 ML IV Pantoprazole Sodium 40 MG DAILY 03/18 1000 AC 03/27 IV 1021 Phosphate 250 MG ONCE ONE 03/27 0745 DC 03/27 PO 03/27 0746 1021 Polyethylene Glycol 17 GM DAILY PRN 03/27 1215 AC PO Potassium Chloride 40 MEQ Q10H 03/26 0800 AC 03/26 Dextrose/Sodium 1,000 ML IV 2200 Chloride Valproate Sodium 500 MG Q8H 03/26 1800 AC 03/27 Sodium Chloride 100 ML IV 1021 Vancomycin HCl 1,000 MG Q12H 03/25 1200 AC 03/27 Dextrose/Water 250 ML IV 1102 Impression/Plan Impression/Problem List Impression: This is a 70 year old female with PMH of hypotension, hyperlipidemia, hypothyroidism DM who came was brought to hospital after being found unresponsive. She had one day of otalgia and difficulty hearing. Found down and unresponsive, subsequently brought to . In ED was found to have Tmax 102, AMS/ agitation, CT with pneumocephalus in temporal lobe, and opacification of mastoid air cells. Due to concern for bacterial meningitis 2/2 otitis she was admitted to ICU. PLAN Respiratory: Pt was intubated on 03/25/2016; Continues to be intubated but under no sedation. She is more awake and alert. Her respiratory status is stable. She is satting 40 FiO2, Hemodynamically stable, able to follow commands. Pt was weaned for an hour and she got a little fatigued. Not ready for extubation. * Con't mechanical ventilation * Aspiration precautions Neuro/ID: 1. Step Pneumo Meningitis: Patient has strep pneumo meningitis confirmed by CSF culture and blood culture. Finished 4 day course of Decadron. Initial CSF white count was over 20,000 and repeat LP showed white blood cell of only 42. Of note, during admission she had a new 3/6 systolic murmur heard 3 days ago. There is concern for endocarditis in setting of s. pneumo bacteremia. 2x TTEs have both been negative for any valvular pathology. Of note she was started on vanco in addition to her ceftriaxone yesterday. Note that one culture of her LRC grew staph aureus. Concern for aspiration with MRSA; however cxr - and sensitivities pending. She is on vanco and ceftriaxone and wbc count trending down. Today at 13. * This is 9th day of antibiotics; continue ceftriaxone and vancomycin. * Repeat BCX: ngtd * Repeat Ucx: ngtd * Repeat Echo-showed no evidence of valvular vegetation. Will likely need SAMUEL. * Cardio consult for possible SAMUEL today * Negative cxr-no evidence of PNA * Follow final cultures and speciation/sensitivity for LRC 2. New onset Seizures: Patient has new onset seizures which started early a.m. on 03/24/2016. Since then she has had a repeat seizure activity, at least 2 episodes of GTC. The rest seem to be focal, localized to her right arm. EEG shows corresponding epileptiform activity in left hemisphere. Pt currently on Keppra and Depakote IV. * Appreciate Neurology consult * Start Keppra 1000 BID * Depakote IV 500 every 8 CVS: Patient has history of diabetes, hypertension. Pt off all pressors. Her BP between 902-120s. Stable con't monitor. * SAMUEL tomorrow. Heme/Onc: Stable. Will con't monitor. Msk: Moving r. side less than left. Unsure if this is neurological injury or NMJ issue. Possibility of CVA in setting of meningitis not improbable. Con't monitor. GI: placed Dobbhoff on 03/20. Con't tube feeds. * RISS * Tube feeds * Protonix Con't Synthroid. FULL CODE NPO ALPS DVT PPX Problem List: 1. Altered mental state 2. Sepsis 3. Meningitis Pain Ratin Pain Location: none Tomorrow's Labs & Rationales: cbc icu Plan DVT/Prophylaxis: pharmacological
[2016-03-27 16:00] VITALS: BP 124/70
--- NOTE | 2016-03-27 17:10 | PN- Neurology ---
Subjective Subjective: Called to reevaluate due to ongoing reaching of the right hand. Per house staff note: "Was able to squeeze my fingers on command. She seems to have decreased strength on right side however Still intubated. No evidence of overt seizures. She does have some arm twitching but she had it even when she was awake and responsive to me. Unsure if this is of neuromuscular etiology or neurologic injury" Review of Systems: Unobtainable, patient intubated Objective Vital Signs and I&Os Vital Signs Date Time Temp Pulse Resp B/P Pulse O2 O2 Flow FiO2 Ox Delivery Rate 03/27 1600 30 03/27 1403 30 03/27 1125 30 03/27 0813 30 03/27 0800 99 Ventilator 30% 03/27 08 98.0 82 18 126/70 99 Ventilator 30% 03/27 0606 30 03/27 0400 98 Ventilator 30% 03/27 0340 30 03/27 0148 30 03/27 0100 90 125/65 03/27 0000 98.4 88 17 92/59 98 Ventilator 30% 03/27 0000 98 Ventilator 30% 03/26 2219 30 03/26 2000 98 Ventilator 30% 03/26 1926 30 Intake & Output 03/27 1600 03/27 0800 03/27 0000 03/26 1600 03/26 0800 03/26 0000 Intake Total 1431 1309 5694 029 8176 Output Total 400 300 346 350 530 Balance 1031 1009 890 635 807 Intake, IV 1059 1066 1154 651 3350 Intake, Other 0 0 Intake, Tube 182 53 Feeding Intake, Tube 190 190 Irrigant Number 0 0 0 0 Bowel Movements Output, 70 50 30 Gastric Drainage Output, Urine 400 300 276 300 500 Physical Exam: Intubated, opened eyes to light shaking. He did not follow verbal commands but attempted to squeeze when fingers were placed in her palm. Was weak bilaterally but less on the right than left. Witnessed mild irregular twitches and jerks of the right hand which continued on and off during the examination. No facial twitching, eye movements appear conjugate on oculovestibular testing pupils small but equal and equivocally reactive to light. Bilateral Babinski signs Current Medications: Current Medications Sig/Garrick Start time Last Medication Dose Route Stop Time Status Admin Acetaminophen 1,000 MG Q6-PRN PRN 03/17 1630 AC 03/20 N/A 1 UNIT IV 1552 Ceftriaxone Sodium 2,000 MG Q12H 03/17 1515 AC 03/27 IV 03/31 1100 1433 Heparin Sodium 5,000 UNIT Q8 03/25 1400 AC 03/27 (Porcine) SC 1433 Hydralazine HCl 10 MG Q8 PRN 03/23 1315 AC 03/25 IV 0720 Insulin Human Regular 0 Q6 03/17 1800 AC 03/27 SC 1218 Levetiracetam 1,000 MG Q12H 03/25 1400 AC 03/27 Sodium Chloride 100 ML IV 1432 Levothyroxine Sodium 12.5 MCG DAILY 03/19 1000 AC 03/27 IV 1021 Lorazepam 1 MG Q1P PRN 03/25 1100 AC 03/26 IV 0434 Norepinephrine 4 MG Q24H 03/26 0100 DC Dextrose/Water 250 ML IV Pantoprazole Sodium 40 MG DAILY 03/18 1000 AC 03/27 IV 1021 Phosphate 250 MG ONCE ONE 03/27 0745 DC 03/27 PO 03/27 0746 1021 Polyethylene Glycol 17 GM DAILY PRN 03/27 1215 AC PO Potassium Chloride 40 MEQ Q10H 03/26 0800 AC 03/27 Dextrose/Sodium 1,000 ML IV 1433 Chloride Valproate Sodium 500 MG Q8H 03/26 1800 AC 03/27 Sodium Chloride 100 ML IV 1021 Vancomycin HCl 1,000 MG Q12H 03/25 1200 AC 03/27 Dextrose/Water 250 ML IV 1102 Results Last 24 Hours of Lab Results: Laboratory Tests 03/27 0425 Chemistry Sodium (137 - 145 mmol/L) 138 Potassium (3.5 - 5.1 mmol/L) 4.1 Chloride (98 - 107 mmol/L) 106 Carbon Dioxide (22 - 30 mmol/L) 25 Anion Gap (5 - 16) 7 BUN (7 - 17 mg/dL) 13 Creatinine (0.5 - 1.0 mg/dL) 0.6 Estimated GFR (>60 ml/min) > 60 Glucose (65 - 99 mg/dL) 217 H Calcium (8.4 - 10.2 mg/dL) 7.4 L Phosphorus (2.5 - 4.5 mg/dL) 2.4 L Magnesium (1.6 - 2.3 mg/dL) 1.9 Total Bilirubin (0.2 - 1.3 mg/dL) 0.2 AST (14 - 36 U/L) 18 ALT (9 - 52 U/L) 33 Albumin (3.5 - 5.0 g/dL) 2.0 L Hematology CBC w Diff NO MAN DIFF REQ WBC (4.8 - 10.8 /CUMM) 13.8 H RBC (4.20 - 5.40 /CUMM) 3.02 L Hgb (12.0 - 16.0 G/DL) 8.6 L Hct (37 - 47 %) 26.2 L MCV (81.0 - 99.0 FL) 86.6 MCH (27.0 - 31.0 PG) 28.5 RDW (11.5 - 14.5 %) 13.6 Plt Count (130 - 400 /CUMM) 147 MPV (7.4 - 10.4 FL) 10.1 Gran % (42.2 - 75.2 %) 74.1 Lymphocytes % (20.5 - 51.1 %) 15.0 L Monocytes % (1.7 - 9.3 %) 9.5 H Eosinophils % (0 - 5 %) 1.2 Basophils % (0.0 - 2.0 %) 0.2 Absolute Granulocytes (1.4 - 6.5 /CUMM) 10.2 H Absolute Lymphocytes (1.2 - 3.4 /CUMM) 2.1 Absolute Monocytes (0.10 - 0.60 /CUMM) 1.3 H Absolute Eosinophils (0.0 - 0.7 /CUMM) 0.2 Absolute Basophils (0.0 - 0.2 /CUMM) 0 PUBS MCHC (33.0 - 37.0 G/DL) 33.0 Recent Imaging Studies: EEG March 24: Abnormal EEG due to left central sharp wave activity and brief electrographic seizures CT scan March 24: No evidence for acute intracranial injury. Persistent left mastoid opacification. Assessment/Plan Assessment: Focal motor seizure status, ongoing mild twitching of the right side consistent with the left hemispheric epileptogenic focus on EEG. History of a seizure on March 24, Keppra was started and is currently 1000 MG every 12 hours, Depakote added and currently 500 MG every 8 hours. Bacterial Meningitis Plan: Focal seizures often require combination antiepileptic medications Partial reload Keppra: 1500 MG IV now and increase Increase Keppra maintenance 1500 MG every 12 H Partial reload Depakote 1000 mg IV followed by increased daily maintenance 1000 mg every 8 hours. If seizures persist thereafter would load lacosamide (Vimpat)
--- NOTE | 2016-03-27 20:50 | NUR ---
SHIFT NOTE: PATIENT IS MORE ALERT AND AWARE TODAY. SHAKING HEAD 'YES' AND 'NO'. ABLE TO MOVE LEFT ARM AND FOLLOW COMMANDS. STILL NOT ON PRESSORS. B/P IMPROVED TO 120S-130S. HR=80S. VENT SETTINGS UNCHANGED FROM YESTERDAY AM BUT PATIENT TRIALED TODAY FROM [id number] AND TOLD RESPIRATORY SHE WAS TIRED AND READY FOR A BREAK FROM THE TRIAL. OGT TUBE IN PLACE GETTING TUBE FEED. 30 CC AND THEN 15 CC RESIDUALS NOTED UPON CHECK, ADJUSTING RATE PER TUBE FEED ORDER. GOAL MET AT 1900. PASSING FLATUS. NO BM NOTED. SIMMONS IN PLACE DRAINING LARGER AMOUNTS OF CLEARER YELLOW URINE. D5NS W/ 40 MEQ OF POTASSIUM STILL RUNNING AND ADJUSTED TO 50 MLS/HR. PATIENT STILL HAVING SEIZURE LIKE ACTIVITY TO THE RIGHT ARM. ADDITIONAL KEPPRA/DEPAKOTE DOSES GIVEN IV AT 1800. SKIN INTACT OTHER THAN BOTTOM LIP OF MOUTH, BROKEN/BLEEDING/DRIED DARK BLOOD. POSSIBLE COLD SORE THAN BROKE OPEN. INQUIRED TO SALES DRIVER/RESIDENT ABOUT NEED FOR ABREVA. CONTINUING TO MONITOR SAFETY. PATIENT REORIENTED AND GIVEN EMOTIONAL REASSURANCE. FAMILY AT BEDSIDE AND HAPPY WITH PATIENT'S PROGRESS. .
[2016-03-28] VITALS: BP 124/60
[2016-03-28 05:17] LABS: ABSOLUTE BASOPHIL COUNT 0 /CUMM (0.0-0.2); ABSOLUTE EOSINOPHIL COUNT 0.1 /CUMM (0.0-0.7); ABSOLUTE GRANULOCYTE CT 9.4 /CUMM (1.4-6.5); ABSOLUTE LYMPH COUNT 1.4 /CUMM (1.2-3.4); ABSOLUTE MONOCYTE COUNT 1.3 /CUMM (0.10-0.60); HEMATOCRIT 27.3 % (37-47); MEAN CORPUSCULAR HGB CONC 33.4 G/DL (33.0-37.0); MEAN CORPUSCULAR VOLUME 86.9 FL (81.0-99.0); MEAN PLATELET VOLUME 9.9 FL (7.4-10.4); PLATELET COUNT 154 /CUMM (130-400); RBC DISTRIBUTION WIDTH 13.7 % (11.5-14.5); RED BLOOD CELL CT 3.14 /CUMM (4.20-5.40); WHITE BLOOD CELL COUNT 12.3 /CUMM (4.8-10.8)
[2016-03-28 05:33] LABS: BASOPHIL % 0.2 % (0.0-2.0); EOSINOPHIL % 1.1 % (0-5); GRANULOCYTE % 76.6 % (42.2-75.2)
[2016-03-28 08:00] VITALS: BP 122/68
--- NOTE | 2016-03-28 09:19 | PN- CRCU ---
Subjective HPI/Critical Care Issues: The patient is awake, appears comfortable. She is following commands. She remains on mechanical ventilation. Her lower lip appears much worse, and is now black over the entire lip. Her tube feeds are on hold in anticipation of a SAMUEL. Objective Current Medications: Current Medications Sig/Garrick Start time Last Medication Dose Route Stop Time Status Admin Acetaminophen 1,000 MG Q6-PRN PRN 03/17 1630 AC 03/20 N/A 1 UNIT IV 1552 Ceftriaxone Sodium 2,000 MG Q12H 03/17 1515 AC 03/28 IV 03/31 1100 0254 Heparin Sodium 5,000 UNIT Q8 03/25 1400 AC 03/28 (Porcine) SC 0548 Hydralazine HCl 10 MG Q8 PRN 03/23 1315 AC 03/25 IV 0720 Insulin Human Regular 4 UNITS ONCE ONE 03/27 2345 DC 03/27 SC 03/27 2346 2352 Insulin Human Regular 0 Q6 03/17 1800 AC 03/28 SC 0619 Levetiracetam 1,500 MG Q12H 03/28 0600 AC 03/28 Sodium Chloride 100 ML IV 0548 Levetiracetam 1,500 MG ONCE ONE 03/27 1800 DC 03/27 Sodium Chloride 100 ML IV 03/27 1815 1852 Levetiracetam 1,000 MG Q12H 03/25 1400 DC 03/27 Sodium Chloride 100 ML IV 1432 Levothyroxine Sodium 12.5 MCG DAILY 03/19 1000 AC 03/27 IV 1021 Lorazepam 1 MG Q1P PRN 03/25 1100 AC 03/26 IV 0434 Pantoprazole Sodium 40 MG DAILY 03/18 1000 AC 03/27 IV 1021 Polyethylene Glycol 17 GM DAILY PRN 03/27 1215 AC PO Potassium Chloride 40 MEQ Q10H 03/26 0800 AC 03/27 Dextrose/Sodium 1,000 ML IV 2313 Chloride Valproate Sodium 1,000 MG Q8H 03/28 0200 AC 03/28 Sodium Chloride 100 ML IV 0255 Valproate Sodium 1,000 MG ONCE ONE 03/27 1730 DC 03/27 Sodium Chloride 100 ML IV 03/27 1835 1852 Valproate Sodium 500 MG Q8H 03/26 1800 DC 03/27 Sodium Chloride 100 ML IV 03/27 1759 1021 Vancomycin HCl 1,000 MG Q12H 03/25 1200 AC 03/27 Dextrose/Water 250 ML IV 2312 Vital Signs & I&O Last 24 Hrs of Vitals and I&O: Vital Signs Date Time Temp Pulse Resp B/P Pulse O2 O2 Flow FiO2 Ox Delivery Rate 03/28 0831 30 03/28 0610 30 03/28 0407 30 03/28 0400 98 Ventilator 30% 03/28 0200 30 03/28 0000 98.7 80 15 124/60 99 Ventilator 30% 03/28 0000 98 Ventilator 30% 03/27 2222 30 03/27 2000 98 Ventilator 30% 03/27 1930 30 03/27 1600 30 03/27 1600 96.9 87 18 124/70 100 Ventilator 30% 03/27 1600 100 Ventilator 30% 03/27 1403 30 03/27 1200 100 Ventilator 30% 03/27 1125 30 Intake & Output 03/28 1600 03/28 0800 03/28 0000 Intake Total 778 1429 Output Total 1400 1300 Balance -622 129 Intake, IV 778 935 Intake, Tube 399 Feeding Intake, Tube 95 Irrigant Output, Urine 1400 1300 Impression/Plan Impression/Plan Impression/Plan: 1. Improved mental status following cardiopulmonary arrest in the setting of continued seizure activity. 2. Pneumococcal meningitis, on ceftriaxone and vanco. 3. Respiratory failure secondary to ventilatory failure. 4. Malnutrition. 5. New systolic murmur, rule out etiology. Recommendations: * Continue IVFs to 50 ml per hour. * Await SAMUEL results. * Continue antibiotics as per ID. * Will begin weaning trials following SAMUEL. * Bite block removed. * Wound care consult for evaluation of lower lip. * Continue to follow antiseizure regimen as per neurology. * SQ heparin for DVT prophylaxis to continue. * The patient's family was updated at the bedside. * Continue all supportive care for now.
--- NOTE | 2016-03-28 09:57 | PN- Cardiology ---
Subjective Subjective: The patient is significantly improved over 2 days ago when I last saw her. She is off pressors. She remains intubated and on the respirator but is tolerating weaning. We did perform a transesophageal echocardiogram this morning which does not show any evidence of endocarditis. She does have significant mitral regurgitation but this is probably on the basis of degenerative mitral valve disease. Objective Vital Signs and I&Os Vital Signs Date Time Temp Pulse Resp B/P Pulse O2 O2 Flow FiO2 Ox Delivery Rate 03/28 0831 30 03/28 0610 30 03/28 0407 30 03/28 0400 98 Ventilator 30% 03/28 0200 30 03/28 0000 98.7 80 15 124/60 99 Ventilator 30% 03/28 0000 98 Ventilator 30% 03/27 2222 30 03/27 2000 98 Ventilator 30% 03/27 1930 30 03/27 1600 30 03/27 1600 96.9 87 18 124/70 100 Ventilator 30% 03/27 1600 100 Ventilator 30% 03/27 1403 30 03/27 1200 100 Ventilator 30% 03/27 1125 30 Intake & Output 03/28 1600 03/28 0800 03/28 0000 03/27 1600 03/27 0800 03/27 0000 Intake Total 778 1429 1423 1431 1309 Output Total 1400 1300 1000 400 300 Balance -622 126 016 6720 1009 Intake, IV 778 636 063 9881 1066 Intake, Other 170 Intake, Tube 399 273 182 53 Feeding Intake, Tube 95 190 190 Irrigant Number 0 0 Bowel Movements Output, Urine 1400 1300 1000 400 300 Physical Exam: She is awake but still on the respirator. Lungs are aerating well Heart reveals grade 3/6 holosystolic murmur at the apex Current Medications: Current Medications Sig/Garrick Start time Last Medication Dose Route Stop Time Status Admin Acetaminophen 1,000 MG Q6-PRN PRN 03/17 1630 AC 03/20 N/A 1 UNIT IV 1552 Ceftriaxone Sodium 2,000 MG Q12H 03/17 1515 AC 03/28 IV 03/31 1100 0254 Heparin Sodium 5,000 UNIT Q8 03/25 1400 AC 03/28 (Porcine) PA 0548 Hydralazine HCl 10 MG Q8 PRN 03/23 1315 AC 03/25 IV 0720 Insulin Human Regular 4 UNITS ONCE ONE 03/27 2345 DC 03/27 SC 03/27 2346 2352 Insulin Human Regular 0 Q6 03/17 1800 AC 03/28 SC 0619 Levetiracetam 1,500 MG Q12H 03/28 0600 AC 03/28 Sodium Chloride 100 ML IV 0548 Levetiracetam 1,500 MG ONCE ONE 03/27 1800 DC 03/27 Sodium Chloride 100 ML IV 03/27 1815 1852 Levetiracetam 1,000 MG Q12H 03/25 1400 DC 03/27 Sodium Chloride 100 ML IV 1432 Levothyroxine Sodium 12.5 MCG DAILY 03/19 1000 AC 03/27 IV 1021 Lorazepam 1 MG Q1P PRN 03/25 1100 AC 03/26 IV 0434 Pantoprazole Sodium 40 MG DAILY 03/18 1000 AC 03/27 IV 1021 Polyethylene Glycol 17 GM DAILY PRN 03/27 1215 AC PO Potassium Chloride 40 MEQ Q10H 03/26 0800 AC 03/27 Dextrose/Sodium 1,000 ML IV 2313 Chloride Valproate Sodium 1,000 MG Q8H 03/28 0200 AC 03/28 Sodium Chloride 100 ML IV 0255 Valproate Sodium 1,000 MG ONCE ONE 03/27 1730 DC 03/27 Sodium Chloride 100 ML IV 03/27 1835 1852 Valproate Sodium 500 MG Q8H 03/26 1800 DC 03/27 Sodium Chloride 100 ML IV 03/27 1759 1021 Vancomycin HCl 1,000 MG Q12H 03/25 1200 AC 03/27 Dextrose/Water 250 ML IV 2312 Results Last 48 Hrs of Labs/Mics: Laboratory Tests 03/28/16 0415: Anion Gap 6, Estimated GFR > 60, Glucose 206 H, Calcium 8.0 L, Phosphorus 3.1, Magnesium 1.9, Total Bilirubin 0.2, AST 16, ALT 31, Albumin 2.2 L, CBC w Diff NO MAN DIFF REQ, RBC 3.14 L, MCV 86.9, MCH 29.0, RDW 13.7, MPV 9.9, Gran % 76.6 H, Lymphocytes % 11.7 L, Monocytes % 10.4 H, Eosinophils % 1.1, Basophils % 0.2, Absolute Granulocytes 9.4 H, Absolute Lymphocytes 1.4, Absolute Monocytes 1.3 H, Absolute Eosinophils 0.1, Absolute Basophils 0, PUBS MCHC 33.4 03/27/16 5635: Anion Gap 7, Estimated GFR > 60, Glucose 217 H, Calcium 7.4 L, Phosphorus 2.4 L, Magnesium 1.9, Total Bilirubin 0.2, AST 18, ALT 33, Albumin 2.0 L, CBC w Diff NO MAN DIFF REQ, RBC 3.02 L, MCV 86.6, MCH 28.5, RDW 13.6, MPV 10.1, Gran % 74.1, Lymphocytes % 15.0 L, Monocytes % 9.5 H, Eosinophils % 1.2, Basophils % 0.2, Absolute Granulocytes 10.2 H, Absolute Lymphocytes 2.1, Absolute Monocytes 1.3 H, Absolute Eosinophils 0.2, Absolute Basophils 0, PUBS MCHC 33.0 Recent Imaging Studies: SAMULE: CONCLUSIONS Normal left ventricular size, wall thickness and systolic function with no obvious regional wall motion abnormalities. The left atrium is normal in size. Normal left atrial appendage. There is thickening of the mitral valve leaflets. There is calcification of the mitral annulus. There is at least moderate mitral regurgitation seen. Structurally normal aortic valve without significant sclerosis or stenosis. There are no vegetations seen on any of the cardiac valves on this study. Cezar Felix M.D. (Electronically Signed) Final Date: 28 March 2016 13:57 Assessment/Plan Assessment/Plan The patient is hemodynamically improved. Fortunately her transesophageal echo did not show any evidence of endocarditis. Hopefully she will be able to be extubated today. When she is well enough to leave the intensive care unit she can go to general medicine. Continue telemetry? Not applicable
--- NOTE | 2016-03-28 10:16 | Proc Note Cardiology ---
Cardiology Procedure Procedure Date: 03/28/16 Cardiology Procedure(s): SAMUEL Pre-Operative Diagnosis: Pneumococcal sepsis, rule out endocarditis Post-Operative Diagnosis: Negative SAMUEL for endocarditis Estimated Blood Loss: n/a Anesthesia: local monitored anesthesi Procedure Findings: A transesophageal echocardiogram was performed on this patient because of pneumococcal pneumonia and sepsis, to rule out endocarditis. She has a significant mitral regurgitation murmur. Her transthoracic echocardiogram was nondiagnostic for endocarditis. The patient was sedated by anesthesia. She was already intubated on the respirator. The transesophageal probe was placed in the esophagus with no difficulty and full imaging took place. There were no complications. Please see the formal echo report for the results.
--- NOTE | 2016-03-28 11:16 | PN- Infect Dx ---
Subjective Subjective: Afebrile. She has been sedated for the SAMUEL. Objective Last 24 Hrs of Vital Signs/I&O Vital Signs Date Time Temp Pulse Resp B/P Pulse O2 O2 Flow FiO2 Ox Delivery Rate 03/28 0831 30 03/28 0800 98.5 92 14 122/68 98 Ventilator 30% 02/ 0610 30 03/28 0407 30 / 0400 98 Ventilator 30% 03/28 0200 30 02/ 0000 98.7 80 15 124/60 99 Ventilator 30% 02/ 0000 98 Ventilator 30% 03/27 2222 30 02/ 2000 98 Ventilator 30% 03/27 1930 30 02 1600 30 / 1600 96.9 87 18 124/70 100 Ventilator 30% 03/27 1600 100 Ventilator 30% 03/27 1403 30 03/27 1200 100 Ventilator 30% 03/27 1125 30 Intake & Output 03/28 1600 / 0800 02/ 0000 Intake Total 778 1429 Output Total 1400 1300 Balance -622 129 Intake, IV 778 935 Intake, Tube 399 Feeding Intake, Tube 95 Irrigant Output, Urine 1400 1300 Physical Exam Other Physical Findings: She is presently unresponsive status post sedation for the SAMUEL Lungs are clear Heart regular rhythm with a 3/6 systolic murmur Extremities trace edema both lower extremities; PICC in the right upper extremity with no inflammation at the site Neuro no twitching of the right upper extremity presently Dominguez catheter remains in place Results Last 24 Hours of Lab Results: Laboratory Tests 03/285 Chemistry Sodium (137 - 145 mmol/L) 140 Potassium (3.5 - 5.1 mmol/L) 4.3 Chloride (98 - 107 mmol/L) 104 Carbon Dioxide (22 - 30 mmol/L) 29 Anion Gap (5 - 16) 6 BUN (7 - 17 mg/dL) 9 Creatinine (0.5 - 1.0 mg/dL) 0.5 Estimated GFR (>60 ml/min) > 60 Glucose (65 - 99 mg/dL) 206 H Calcium (8.4 - 10.2 mg/dL) 8.0 L Phosphorus (2.5 - 4.5 mg/dL) 3.1 Magnesium (1.6 - 2.3 mg/dL) 1.9 Total Bilirubin (0.2 - 1.3 mg/dL) 0.2 AST (14 - 36 U/L) 16 ALT (9 - 52 U/L) 31 Albumin (3.5 - 5.0 g/dL) 2.2 L Hematology CBC w Diff NO MAN DIFF REQ WBC (4.8 - 10.8 /CUMM) 12.3 H RBC (4.20 - 5.40 /CUMM) 3.14 L Hgb (12.0 - 16.0 G/DL) 9.1 L Hct (37 - 47 %) 27.3 L MCV (81.0 - 99.0 FL) 86.9 MCH (27.0 - 31.0 PG) 29.0 RDW (11.5 - 14.5 %) 13.7 Plt Count (130 - 400 /CUMM) 154 MPV (7.4 - 10.4 FL) 9.9 Gran % (42.2 - 75.2 %) 76.6 H Lymphocytes % (20.5 - 51.1 %) 11.7 L Monocytes % (1.7 - 9.3 %) 10.4 H Eosinophils % (0 - 5 %) 1.1 Basophils % (0.0 - 2.0 %) 0.2 Absolute Granulocytes (1.4 - 6.5 /CUMM) 9.4 H Absolute Lymphocytes (1.2 - 3.4 /CUMM) 1.4 Absolute Monocytes (0.10 - 0.60 /CUMM) 1.3 H Absolute Eosinophils (0.0 - 0.7 /CUMM) 0.1 Absolute Basophils (0.0 - 0.2 /CUMM) 0 PUBS MCHC (33.0 - 37.0 G/DL) 33.4 Last 24 Hours of Keaton Results: Sputum culture March 25 positive for Staph aureus sensitive to Oxacillin Blood cultures 2 March 25 negative Recent Imaging Studies: SAMUEL this morning negative for any vegetations, but does reveal mitral regurgitation Assessment/Plan Impression: Overall improvement with patient reportedly more alert and responsive, though currently sedated after the SAMUEL, with temperatures remaining normal and white blood cell count continuing to decrease on Ceftriaxone now Day 11 of treatment for pneumococcal meningitis. She is also on Vancomycin now Day 3 of treatment for possible aspiration pneumonia, thought possibly secondary to MRSA, but sputum culture is positive for MSSA. This should be adequately covered by the Ceftriaxone; therefore the Vancomycin can be discontinued. Neuro follow-up regarding focal motor seizures appreciated, with recommendations noted. Her SAMUEL , just completed, is negative for any vegetations, making endocarditis unlikely. Suggestion: 1. Further management of her seizures per Neurology 2. Eventual MRI of the head when extubated 3. Discontinue Vancomycin 4. Continue Ceftriaxone
--- NOTE | 2016-03-28 13:58 | ECHOCARDIOGRAM REPORT ---
ANA SOLOMON Age: 70 : Gender: F Exam Date: 03/28/2016 08:34 Exam Location: [facility] Ht (in): 64 Wt (lb): 185 BSA: 1.98 BP: 124 / 72 Ordering Physician: KAILA GRAJEDA MD Referring Physician: KAILA GRAJEDA MD Technologist: Hasmukh Espinoza NICOLETTE Room Number: Indications: INFECTIVE ENDOCARDITIS Rhythm: Sinus Technical Quality: Good Medications Propofol administered by Anesthesiology. Ease of Transducer Insertion No Difficulty Complications None. Technical Difficulty none FINDINGS Left Ventricle Normal left ventricular size, wall thickness and systolic function with no obvious regional wall motion abnormalities. Right Ventricle The right ventricle is normal in size and function. Right Atrium The right atrium is normal in size. Left Atrium The left atrium is normal in size. The interatrial septum is intact. LA Appendage Normal left atrial appendage. IA Septum Normal interatrial septum. Mitral Valve There is thickening of the mitral valve leaflets. There is calcification of the mitral annulus. There is at least moderate mitral regurgitation seen. There are no vegetations seen. Aortic Valve Structurally normal aortic valve without significant sclerosis or stenosis. There is no aortic regurgitation. Tricuspid Valve The tricuspid valve is normal in structure and function. There is no tricuspid regurgitation. Pulmonic Valve Structurally normal pulmonic valve. There is no pulmonic regurgitation. Pericardium Normal pericardium without effusion. No pleural effusion. Great Vessels There is grade 1 plaquing of the descending aorta and arch. CONCLUSIONS Normal left ventricular size, wall thickness and systolic function with no obvious regional wall motion abnormalities. The left atrium is normal in size. Normal left atrial appendage. There is thickening of the mitral valve leaflets. There is calcification of the mitral annulus. There is at least moderate mitral regurgitation seen. Structurally normal aortic valve without significant sclerosis or stenosis. There are no vegetations seen on any of the cardiac valves on this study. Cezar Felix M.D. (Electronically Signed) Final Date: 28 March 2016 13:57 MEASUREMENTS (Male / Female) Normal Values
[2016-03-28 16:00] VITALS: BP 124/70
--- NOTE | 2016-03-28 21:41 | PN- Resident CRCU ---
Subjective HPI/CRCU Issues: Patient ICU for bacterial meningitis. Intubated. Patient seems much more responsive this AM. She is able to open her eyes and track a finger for small print of time. She is able to squeeze my fingers on command on left upper extremity not on the right side. Has decreased movement of both lower extremities. No appreciable seizures after increased dose of medication. No acute overnight events. Patient currently intubated we'll plan wean off trial today. Objective Vital Signs & I&O Last 8 Hrs of Vitals and I&O: Intake & Output 03/28 1600 Intake Total 810 Output Total 1650 Balance -840 Intake, IV 810 Intake, Oral 0 Number 0 Bowel Movements Output, 0 Gastric Drainage Output, Urine 1650 Exam General Appearance: alert, awake, intubated, mild distress Head: atraumatic, lower lip trauma Ears, Nose, Throat: normal ENT inspection Neck: supple Respiratory: normal breath sounds, chest non-tender Cardiovascular: regular rate/rhythm, murmur Gastrointestinal: soft, non-tender Extremities: pt not moving both lower extremities on command Weaning Parameters NIF: 527 Minute Volume: 7.68 Resp rate: 28 Vt: 190 Heart Rate: 90 Weaning Schedule Start Time: 1140 Minute Volume: 7.68 Resp Rate: 27 Vt: 268 Heart Rate: 87 End Time: 1155 Minute Volume: 7.4 Resp Rate: 23 Vt: 250 Heart Rate: 92 Start Time: 1248 Minute Volume: 7.99 Resp Rate: 29 Vt: 273 Heart Rate: 86 End Time: 1348 Minute Volume: 6.79 Resp Rate: 24 Vt: 475 Heart Rate: 92 IV Drips IV Drips: tube feeds normal saline Nutrition Nutrition: tube feeding Current Medications: Current Medications Sig/Garrick Start time Last Medication Dose Route Stop Time Status Admin Acetaminophen 1,000 MG Q6-PRN PRN 03/17 1630 AC 03/20 N/A 1 UNIT IV 1552 Ceftriaxone Sodium 2,000 MG Q12H 03/17 1515 AC 03/28 IV 03/31 1100 1654 Heparin Sodium 5,000 UNIT Q8 03/25 1400 AC 03/28 (Porcine) SC 1400 Hydralazine HCl 10 MG Q8 PRN 03/23 1315 AC 03/25 IV 0720 Insulin Human Regular 4 UNITS ONCE ONE 03/27 2345 DC 03/27 SC 03/27 2346 2352 Insulin Human Regular 0 Q6 03/17 1800 AC 03/28 SC 1805 Levetiracetam 1,500 MG Q12H 03/28 0600 AC 03/28 Sodium Chloride 100 ML IV 1800 Levothyroxine Sodium 12.5 MCG DAILY 03/19 1000 AC 03/28 IV 1024 Lorazepam 1 MG Q1P PRN 03/25 1100 AC /03 IV 2006 Pantoprazole Sodium 40 MG DAILY 03/18 1000 AC 03/28 IV 1024 Polyethylene Glycol 17 GM DAILY PRN 03/27 1215 AC PO Potassium Chloride 40 MEQ Q10H 03/26 0800 AC 03/28 Dextrose/Sodium 1,000 ML IV 1024 Chloride Valproate Sodium 1,000 MG Q8H 03/28 0200 AC 03/28 Sodium Chloride 100 ML IV 1800 Vancomycin HCl 1,000 MG Q12H 03/25 1200 DC 03/28 Dextrose/Water 250 ML IV 1137 Impression/Plan Impression/Problem List Impression: This is a 70 year old female with PMH of hypotension, hyperlipidemia, hypothyroidism DM who came was brought to hospital after being found unresponsive. She had one day of otalgia and difficulty hearing. Found down and unresponsive, subsequently brought to . In ED was found to have Tmax 102, AMS/ agitation, CT with pneumocephalus in temporal lobe, and opacification of mastoid air cells. Due to concern for bacterial meningitis 2/2 otitis she was admitted to ICU. PLAN Respiratory: Pt was intubated on 03/25/2016; Continues to be intubated but under no sedation. She is more awake and alert. Her respiratory status is stable. She is satting 40 FiO2, Hemodynamically stable, able to follow commands. She is significantly more awake and alert today. * Con't mechanical ventilation * Aspiration precautions * wean off trial Neuro/ID: 1. Step Pneumo Meningitis: Patient has strep pneumo meningitis confirmed by CSF culture and blood culture. Finished 4 day course of Decadron. Initial CSF white count was over 20,000 and repeat LP showed white blood cell of only 42. Of note, during admission she had a new 3/6 systolic murmur heard 3 days ago. There is concern for endocarditis in setting of s. pneumo bacteremia. 2x TTEs have both been negative for any valvular pathology. Of note she was started on vanco in addition to her ceftriaxone. Note that one culture of her LRC grew staph aureus. negative for MRSA; negative cxr. She is on vanco and ceftriaxone and wbc count trending down. Today at 12.8, * This is 10th day of antibiotics; continue ceftriaxone * D.C Vanco * Repeat BCX: ngtd * Repeat Ucx: ngtd * SAMUEL negative today * Negative cxr-no evidence of PNA * Follow final cultures and speciation/sensitivity for LRC 2. New onset Seizures: Patient has new onset seizures which started early a.m. on 03/24/2016. Since then she has had a repeat seizure activity, at least 2 episodes of GTC. The rest seem to be focal, localized to her right arm. EEG shows corresponding epileptiform activity in left hemisphere. Pt currently on Keppra and Depakote IV with doses increased overnight yesterday. * Appreciate Neurology consult * Con't Keppra nad Depakote CVS: Patient has history of diabetes, hypertension. Pt off all pressors. Stable con't monitor. Heme/Onc: Stable. Will con't monitor. Msk: Moving r. side less than left. Unsure if this is neurological injury or NMJ issue. Possibility of CVA in setting of meningitis not improbable. Con't monitor. GI: placed Dobbhoff on 03/20. Con't tube feeds. * RISS * Tube feeds * Protonix Con't Synthroid. FULL CODE NPO ALPS DVT PPX Problem List: 1. Altered mental state 2. Left otitis media 3. Sepsis 4. Meningitis Pain Ratin Tomorrow's Labs & Rationales: icu cbc Plan DVT/Prophylaxis: pharmacological
[2016-03-29] VITALS: BP 114/60
[2016-03-29 05:18] LABS: ABSOLUTE BASOPHIL COUNT 0 /CUMM (0.0-0.2); ABSOLUTE EOSINOPHIL COUNT 0.1 /CUMM (0.0-0.7); ABSOLUTE GRANULOCYTE CT 9.2 /CUMM (1.4-6.5); ABSOLUTE LYMPH COUNT 1.2 /CUMM (1.2-3.4); ABSOLUTE MONOCYTE COUNT 1.5 /CUMM (0.10-0.60); BASOPHIL % 0.3 % (0.0-2.0); EOSINOPHIL % 0.5 % (0-5); GRANULOCYTE % 77.1 % (42.2-75.2); HEMATOCRIT 27.2 % (37-47); MEAN CORPUSCULAR HGB 29.1 PG (27.0-31.0); MEAN CORPUSCULAR HGB CONC 33.5 G/DL (33.0-37.0); PLATELET COUNT 159 /CUMM (130-400); RBC DISTRIBUTION WIDTH 13.7 % (11.5-14.5); RED BLOOD CELL CT 3.13 /CUMM (4.20-5.40); WHITE BLOOD CELL COUNT 11.9 /CUMM (4.8-10.8)
--- NOTE | 2016-03-29 07:21 | RADIOLOGY REPORT ---
EXAMINATION: XR PORTABLE CHEST CLINICAL INFORMATION: Intubated status post seizure. COMPARISON: Recent priors. TECHNIQUE: Portable AP erect view of the chest was obtained. FINDINGS: The tip of the endotracheal tube is 5 cm above the eugenio. A feeding tube is present. The tip is difficult to identify. The lungs and pleural spaces are clear. Heart size is normal. IMPRESSION: 1. Endotracheal tube 5 cm above the eugenio. 2. No cardiopulmonary disease demonstrated.
[2016-03-29 08:00] VITALS: BP 98/60
--- NOTE | 2016-03-29 08:32 | PN- Resident CRCU ---
Subjective HPI/CRCU Issues: She was seen and examined. Currently intubated, only arousable to tactile stimuli but not verbal stimuli. No review of systems can be obtained. No appreciable seizures after increased dose of medication. No acute overnight events. Objective Vital Signs & I&O Last 8 Hrs of Vitals and I&O: Intake & Output 03/29 1600 03/29 0800 03/29 0000 Intake Total 1210 960 Output Total 500 500 Balance 710 460 Intake, IV 644 705 Intake, Tube 351 160 Feeding Intake, Tube 215 95 Irrigant Output, Urine 500 500 Laboratory Tests 03/29 0420 Chemistry Sodium (137 - 145 mmol/L) 139 Potassium (3.5 - 5.1 mmol/L) 4.3 Chloride (98 - 107 mmol/L) 103 Carbon Dioxide (22 - 30 mmol/L) 28 Anion Gap (5 - 16) 8 BUN (7 - 17 mg/dL) 11 Creatinine (0.5 - 1.0 mg/dL) 0.6 Estimated GFR (>60 ml/min) > 60 Glucose (65 - 99 mg/dL) 213 H Calcium (8.4 - 10.2 mg/dL) 8.2 L Phosphorus (2.5 - 4.5 mg/dL) 3.1 Magnesium (1.6 - 2.3 mg/dL) 1.8 Total Bilirubin (0.2 - 1.3 mg/dL) 0.4 AST (14 - 36 U/L) 17 ALT (9 - 52 U/L) 30 Albumin (3.5 - 5.0 g/dL) 2.2 L Hematology CBC w Diff NO MAN DIFF REQ WBC (4.8 - 10.8 /CUMM) 11.9 H RBC (4.20 - 5.40 /CUMM) 3.13 L Hgb (12.0 - 16.0 G/DL) 9.1 L Hct (37 - 47 %) 27.2 L MCV (81.0 - 99.0 FL) 87.0 MCH (27.0 - 31.0 PG) 29.1 RDW (11.5 - 14.5 %) 13.7 Plt Count (130 - 400 /CUMM) 159 MPV (7.4 - 10.4 FL) 11.0 H Gran % (42.2 - 75.2 %) 77.1 H Lymphocytes % (20.5 - 51.1 %) 9.7 L Monocytes % (1.7 - 9.3 %) 12.4 H Eosinophils % (0 - 5 %) 0.5 Basophils % (0.0 - 2.0 %) 0.3 Absolute Granulocytes (1.4 - 6.5 /CUMM) 9.2 H Absolute Lymphocytes (1.2 - 3.4 /CUMM) 1.2 Absolute Monocytes (0.10 - 0.60 /CUMM) 1.5 H Absolute Eosinophils (0.0 - 0.7 /CUMM) 0.1 Absolute Basophils (0.0 - 0.2 /CUMM) 0 PUBS MCHC (33.0 - 37.0 G/DL) 33.5 Exam General Appearance: sedated, intubated Head: atraumatic, normal appearance Respiratory: normal breath sounds, lungs clear Cardiovascular: regular rate/rhythm, edema Gastrointestinal: normal bowel sounds, soft Weaning Parameters NIF: 527 Minute Volume: 7.68 Resp rate: 28 Vt: 190 Heart Rate: 90 Weaning Schedule Start Time: 1140 Minute Volume: 7.68 Resp Rate: 27 Vt: 268 Heart Rate: 87 End Time: 1155 Minute Volume: 7.4 Resp Rate: 23 Vt: 250 Heart Rate: 92 Start Time: 1248 Minute Volume: 7.99 Resp Rate: 29 Vt: 273 Heart Rate: 86 End Time: 1348 Minute Volume: 6.79 Resp Rate: 24 Vt: 475 Heart Rate: 92 Current Medications: Current Medications Sig/Garrick Start time Last Medication Dose Route Stop Time Status Admin Acetaminophen 1,000 MG Q6-PRN PRN 03/17 1630 AC 03/20 N/A 1 UNIT IV 1552 Ceftriaxone Sodium 2,000 MG Q12H 03/17 1515 AC 03/29 IV 03/31 1100 0400 Heparin Sodium 5,000 UNIT Q8 03/25 1400 AC 03/29 (Porcine) SC 0556 Hydralazine HCl 10 MG Q8 PRN 03/23 1315 AC 03/25 IV 0720 Insulin Human Regular 0 Q6 03/17 1800 AC 03/29 SC 0556 Levetiracetam 1,500 MG Q12H 03/28 0600 AC 03/29 Sodium Chloride 100 ML IV 0556 Levothyroxine Sodium 12.5 MCG DAILY 03/19 1000 AC 03/29 IV 1031 Lorazepam 1 MG Q1P PRN 03/25 1100 AC 03/28 IV 2006 Pantoprazole Sodium 40 MG DAILY 03/18 1000 AC 03/29 IV 1031 Polyethylene Glycol 17 GM DAILY PRN 03/27 1215 AC PO Potassium Chloride 40 MEQ Q10H 03/26 0800 AC 03/29 Dextrose/Sodium 1,000 ML IV 0034 Chloride Valproate Sodium 1,000 MG Q8H 03/28 0200 AC 03/29 Sodium Chloride 100 ML IV 1032 Vancomycin HCl 1,000 MG Q12H 03/25 1200 DC 03/28 Dextrose/Water 250 ML IV 1137 Impression/Plan Impression/Problem List Impression: Impression: This is a 70 year old female with PMH of hypotension, hyperlipidemia, hypothyroidism DM who came was brought to hospital after being found unresponsive. She had one day of otalgia and difficulty hearing. Found down and unresponsive, subsequently brought to . In ED was found to have Tmax 102, AMS/ agitation, CT with pneumocephalus in temporal lobe, and opacification of mastoid air cells. Due to concern for bacterial meningitis 2/2 otitis she was admitted to ICU. PLAN Respiratory: Pt was intubated on 03/25/2016; Continues to be intubated but under no sedation. She is more awake and alert. Her respiratory status is stable. She is satting 40 FiO2, Hemodynamically stable. * Con't mechanical ventilation * Will do a CPAP trial * Respiratory will remove the bite block different position, to treat her lip trauma * Aspiration precautions Neuro/ID: 1. Step Pneumo Meningitis: Patient has strep pneumo meningitis confirmed by CSF culture and blood culture. Finished 4 day course of Decadron. Initial CSF white count was over 20,000 and repeat LP showed white blood cell of only 42. Of note, during admission she had a new 3/6 systolic murmur heard 3 days ago. There is concern for endocarditis in setting of s. pneumo bacteremia. 2x TTEs have both been negative for any valvular pathology. Of note she was started on vanco in addition to her ceftriaxone. Note that one culture of her LRC grew staph aureus. negative for MRSA; negative cxr. She is on ceftriaxone and wbc count trending down. Today at 11.9. Patient WBCs continue to improve off Vanco. We will keep Vanco on hold * This is 11th day of antibiotics; continue ceftriaxone * D.C Vanco * Repeat BCX: ngtd * Repeat Ucx: ngtd * SAMUEL negative today * Negative cxr-no evidence of PNA * Follow final cultures and speciation/sensitivity for LRC 2. New onset Seizures: Patient has new onset seizures which started early a.m. on 03/24/2016. Since then she has had a repeat seizure activity, at least 2 episodes of GTC. The rest seem to be focal, localized to her right arm. EEG shows corresponding epileptiform activity in left hemisphere. Pt currently on Keppra and Depakote IV with doses increased overnight yesterday. * Appreciate Neurology consult * Con't Keppra nad Depakote * If seizures persist thereafter would load lacosamide (Vimpat) CVS: Patient has history of diabetes, hypertension. Pt off all pressors. Stable con't monitor. Heme/Onc: Stable. Will con't monitor. Msk: Moving r. side less than left. Unsure if this is neurological injury or NMJ issue. Possibility of CVA in setting of meningitis not improbable. Con't monitor. GI: placed Dobbhoff on 03/20. Con't tube feeds. * RISS * Tube feeds * Protonix Con't Synthroid. FULL CODE NPO ALPS DVT PPX Problem List: 1. Meningitis 2. Sepsis 3. Left otitis media 4. Altered mental state Pain Ratin Tomorrow's Labs & Rationales: cbc and ICU bundle Plan DVT/Prophylaxis: pharmacological
--- NOTE | 2016-03-29 12:06 | PN- CRCU ---
Subjective HPI/Critical Care Issues: Patient ICU for bacterial meningitis. Intubated. Patient seems much more responsive this AM. DId receive ativan last night and initially in the morning was sleepy. Has decreased movement of both lower extremities. No appreciable seizures after increased dose of medication. No acute overnight events. Patient currently intubated on cpap trial ROS could not be obtained Intubated Objective Current Medications: Current Medications Sig/Garrick Start time Last Medication Dose Route Stop Time Status Admin Acetaminophen 1,000 MG Q6-PRN PRN 03/17 1630 AC 03/20 N/A 1 UNIT IV 1552 Ceftriaxone Sodium 2,000 MG Q12H 03/17 1515 AC 03/29 IV 03/31 1100 0400 Heparin Sodium 5,000 UNIT Q8 03/25 1400 AC 03/29 (Porcine) SC 0556 Hydralazine HCl 10 MG Q8 PRN 03/23 1315 AC 03/25 IV 0720 Insulin Human Regular 0 Q6 03/17 1800 AC 03/29 SC 0556 Levetiracetam 1,500 MG Q12H 03/28 0600 AC 03/29 Sodium Chloride 100 ML IV 0556 Levothyroxine Sodium 12.5 MCG DAILY 03/19 1000 AC 03/29 IV 1031 Lorazepam 1 MG Q1P PRN 03/25 1100 AC 03/28 IV 2006 Pantoprazole Sodium 40 MG DAILY 03/18 1000 AC 03/29 IV 1031 Polyethylene Glycol 17 GM DAILY PRN 03/27 1215 AC PO Potassium Chloride 40 MEQ Q10H 03/26 0800 AC 03/29 Dextrose/Sodium 1,000 ML IV 0034 Chloride Valproate Sodium 1,000 MG Q8H 03/28 0200 AC 03/29 Sodium Chloride 100 ML IV 1032 Vancomycin HCl 1,000 MG Q12H 03/25 1200 DC 03/28 Dextrose/Water 250 ML IV 1137 Vital Signs & I&O Last 24 Hrs of Vitals and I&O: Vital Signs Date Time Temp Pulse Resp B/P Pulse O2 O2 Flow FiO2 Ox Delivery Rate 03/29 1145 30 03/29 0811 30 03/29 0800 97 Ventilator 30% 03/29 0800 98.2 93 21 98/60 97 Ventilator 30% 03/29 0604 30 03/29 0400 97 Ventilator 30% 03/29 0304 30 03/29 0047 30 03/29 0000 98.6 90 16 114/60 98 Ventilator 30% 03/29 0000 98 Ventilator 30% 03/28 2151 30 03/28 2000 94 Ventilator 30% / 1841 30 03/28 1619 30 / 1600 98 Ventilator 30% 03/28 1600 98.5 87 18 124/70 98 Ventilator 30% 02/03 1355 30 / 1200 98 Ventilator 30% Intake & Output 03/29 1600 03/29 0800 02 0000 Intake Total 1210 960 Output Total 500 500 Balance 710 460 Intake, IV 644 705 Intake, Tube 351 160 Feeding Intake, Tube 215 95 Irrigant Output, Urine 500 500 Laboratory Tests 03/29 03/28 0420 0415 Chemistry Sodium (137 - 145 mmol/L) 139 140 Potassium (3.5 - 5.1 mmol/L) 4.3 4.3 Chloride (98 - 107 mmol/L) 103 104 Carbon Dioxide (22 - 30 mmol/L) 28 29 Anion Gap (5 - 16) 8 6 BUN (7 - 17 mg/dL) 11 9 Creatinine (0.5 - 1.0 mg/dL) 0.6 0.5 Estimated GFR (>60 ml/min) > 60 > 60 Glucose (65 - 99 mg/dL) 213 H 206 H Calcium (8.4 - 10.2 mg/dL) 8.2 L 8.0 L Phosphorus (2.5 - 4.5 mg/dL) 3.1 3.1 Magnesium (1.6 - 2.3 mg/dL) 1.8 1.9 Total Bilirubin (0.2 - 1.3 mg/dL) 0.4 0.2 AST (14 - 36 U/L) 17 16 ALT (9 - 52 U/L) 30 31 Albumin (3.5 - 5.0 g/dL) 2.2 L 2.2 L Hematology CBC w Diff NO MAN DIFF REQ NO MAN DIFF REQ WBC (4.8 - 10.8 /CUMM) 11.9 H 12.3 H RBC (4.20 - 5.40 /CUMM) 3.13 L 3.14 L Hgb (12.0 - 16.0 G/DL) 9.1 L 9.1 L Hct (37 - 47 %) 27.2 L 27.3 L MCV (81.0 - 99.0 FL) 87.0 86.9 MCH (27.0 - 31.0 PG) 29.1 29.0 RDW (11.5 - 14.5 %) 13.7 13.7 Plt Count (130 - 400 /CUMM) 159 154 MPV (7.4 - 10.4 FL) 11.0 H 9.9 Gran % (42.2 - 75.2 %) 77.1 H 76.6 H Lymphocytes % (20.5 - 51.1 %) 9.7 L 11.7 L Monocytes % (1.7 - 9.3 %) 12.4 H 10.4 H Eosinophils % (0 - 5 %) 0.5 1.1 Basophils % (0.0 - 2.0 %) 0.3 0.2 Absolute Granulocytes (1.4 - 6.5 /CUMM) 9.2 H 9.4 H Absolute Lymphocytes (1.2 - 3.4 /CUMM) 1.2 1.4 Absolute Monocytes (0.10 - 0.60 /CUMM) 1.5 H 1.3 H Absolute Eosinophils (0.0 - 0.7 /CUMM) 0.1 0.1 Absolute Basophils (0.0 - 0.2 /CUMM) 0 0 PUBS MCHC (33.0 - 37.0 G/DL) 33.5 33.4 Impression/Plan Impression/Plan Impression/Plan: Patient with strep pneumo meningitis, sepsis, respiratory failure, intractable seizures with 1. Improved mental status following cardiopulmonary arrest in the setting of continued seizure activity. 2. Pneumococcal meningitis, on ceftriaxone and vanco. 3. Respiratory failure secondary to ventilatory failure. 4. Malnutrition. 5. New systolic murmur, rule out etiology. SAMUEL done yesterday did not show vegetations 6. Hematoma of the lip Recommendations: Continue mechanical ventilator. CPAP trial. Continue seizure medications Continue other medications as noted. Antibiotics per ID Minimize sedation. Discussed with respiratory they will remove the bite-block, and put in a different support system for her ET tube to treat her hematoma of The lip. Patient is not ready for extubation yet. As she continues to be sedated on and off with reduced mental status. Continue antihypertensive medications as noted. Patient is critically ill. Total time spent 50 minutes
[2016-03-29 16:00] VITALS: BP 118/64
[2016-03-30] VITALS: BP 114/68
[2016-03-30 04:54] LABS: ABSOLUTE BASOPHIL COUNT 0 /CUMM (0.0-0.2); ABSOLUTE EOSINOPHIL COUNT 0.1 /CUMM (0.0-0.7); ABSOLUTE GRANULOCYTE CT 9.2 /CUMM (1.4-6.5); ABSOLUTE LYMPH COUNT 1.3 /CUMM (1.2-3.4); ABSOLUTE MONOCYTE COUNT 1.7 /CUMM (0.10-0.60); BASOPHIL % 0.1 % (0.0-2.0); EOSINOPHIL % 0.9 % (0-5); GRANULOCYTE % 74.5 % (42.2-75.2); HEMATOCRIT 27.2 % (37-47); MEAN CORPUSCULAR HGB 28.8 PG (27.0-31.0); MEAN CORPUSCULAR HGB CONC 32.9 G/DL (33.0-37.0); MEAN CORPUSCULAR VOLUME 87.4 FL (81.0-99.0); MEAN PLATELET VOLUME 10.1 FL (7.4-10.4); PLATELET COUNT 169 /CUMM (130-400); RBC DISTRIBUTION WIDTH 14.2 % (11.5-14.5); RED BLOOD CELL CT 3.11 /CUMM (4.20-5.40); WHITE BLOOD CELL COUNT 12.3 /CUMM (4.8-10.8)
--- NOTE | 2016-03-30 07:21 | RADIOLOGY REPORT ---
EXAMINATION: XR PORTABLE CHEST CLINICAL INFORMATION: Status-post intubation; clinical question of atelectasis. COMPARISON: Prior chest radiographs, most recently 03/29/2016. TECHNIQUE: Portable AP view of the chest was obtained. FINDINGS: The heart, great vessels, pulmonary vasculature and mediastinum are stable. An endotracheal tube is positioned with tip approximately 3.1 cm superior to the eugenio. A nasogastric tube is seen with tip inferior to the left hemidiaphragm and again poorly visualized. The lungs appear clear. There is no infiltrate, effusion or pneumothorax. No acute osseous abnormality is seen. IMPRESSION: No active cardiopulmonary disease. There is no significant interval change.
[2016-03-30 08:00] VITALS: BP 132/80
--- NOTE | 2016-03-30 08:13 | PN- Infect Dx ---
Subjective Subjective: Afebrile. She has had no further seizure activity reported, but has been minimally responsive. Objective Last 24 Hrs of Vital Signs/I&O Vital Signs Date Time Temp Pulse Resp B/P Pulse O2 O2 Flow FiO2 Ox Delivery Rate 03/30 0549 30 03/30 0400 98 Ventilator 30% 03/30 0320 30 03/30 0027 30 03/30 0000 98 Ventilator 30% 03/30 0000 98.9 94 14 114/68 98 Ventilator 30% 03/29 2227 30 03/29 2000 97 Ventilator 30% 03/29 1938 30 03/29 1608 30 03/29 1600 99 Ventilator 30% 03/29 1600 98.1 96 20 118/64 99 Ventilator 30% 03/29 1439 30 03/29 1213 30 03/29 1200 98 Ventilator 30% 03/29 1145 30 03/29 0811 30 Intake & Output 03/30 1600 03/30 0800 03/30 0000 Intake Total 1376.2 1239.8 Output Total 800 700 Balance 576.2 539.8 Intake, IV 668.2 756.8 Intake, Oral 0 0 Intake, Other 216 95 Intake, Tube 492 388 Feeding Number 0 0 Bowel Movements Output, Urine 800 700 Physical Exam Other Physical Findings: Presently she responds to pain but not voice Lungs are clear Heart regular rhythm with a 3/6 systolic murmur unchanged Abdomen is soft, nontender with positive bowel sounds Extremities 1+ edema of the upper extremities; PICC in the right upper extremity with no inflammation at the site Dominguez catheter remains in place Results Last 24 Hours of Lab Results: Laboratory Tests 03/306 Chemistry Sodium (137 - 145 mmol/L) 134 L Potassium (3.5 - 5.1 mmol/L) 4.4 Chloride (98 - 107 mmol/L) 98 Carbon Dioxide (22 - 30 mmol/L) 31 H Anion Gap (5 - 16) 5 BUN (7 - 17 mg/dL) 12 Creatinine (0.5 - 1.0 mg/dL) 0.6 Estimated GFR (>60 ml/min) > 60 Glucose (65 - 99 mg/dL) 248 H Calcium (8.4 - 10.2 mg/dL) 8.4 Phosphorus (2.5 - 4.5 mg/dL) 3.6 Magnesium (1.6 - 2.3 mg/dL) 1.7 Total Bilirubin (0.2 - 1.3 mg/dL) 0.2 AST (14 - 36 U/L) 21 ALT (9 - 52 U/L) 29 Albumin (3.5 - 5.0 g/dL) 2.2 L Hematology CBC w Diff NO MAN DIFF REQ WBC (4.8 - 10.8 /CUMM) 12.3 H RBC (4.20 - 5.40 /CUMM) 3.11 L Hgb (12.0 - 16.0 G/DL) 8.9 L Hct (37 - 47 %) 27.2 L MCV (81.0 - 99.0 FL) 87.4 MCH (27.0 - 31.0 PG) 28.8 RDW (11.5 - 14.5 %) 14.2 Plt Count (130 - 400 /CUMM) 169 MPV (7.4 - 10.4 FL) 10.1 Gran % (42.2 - 75.2 %) 74.5 Lymphocytes % (20.5 - 51.1 %) 10.9 L Monocytes % (1.7 - 9.3 %) 13.6 H Eosinophils % (0 - 5 %) 0.9 Basophils % (0.0 - 2.0 %) 0.1 Absolute Granulocytes (1.4 - 6.5 /CUMM) 9.2 H Absolute Lymphocytes (1.2 - 3.4 /CUMM) 1.3 Absolute Monocytes (0.10 - 0.60 /CUMM) 1.7 H Absolute Eosinophils (0.0 - 0.7 /CUMM) 0.1 Absolute Basophils (0.0 - 0.2 /CUMM) 0 PUBS MCHC (33.0 - 37.0 G/DL) 32.9 L Last 24 Hours of Keaton Results: No new cultures Recent Imaging Studies: Chest x-ray March 30, personally reviewed, negative Assessment/Plan Impression: Minimally responsive at present, though with no recent sedation, with no further seizure activity reported. She remains afebrile with mild leukocytosis on Ceftriaxone now Day 13 of treatment for pneumococcal meningitis/sepsis, with no evidence of endocarditis on the recent SAMUEL. There was a concern for aspiration pneumonia, with Staph aureus isolated from the sputum, though this was MSSA and should therefore be covered by the Ceftriaxone, and her recent chest x-ray's have been negative. Suggestion: 1. Eventual MRI of the head when extubated 2. Continue Ceftriaxone
--- NOTE | 2016-03-30 10:13 | PN- Pulmonary ---
Subjective HPI/Critical Care Issues: Afebrile. She has had no further seizure activity reported, but has been minimally responsive. Patient is off sedation At times has waxing and waning of consciousness Lower lip appears improved Continues to be intubated and sedated Review of symptoms could not be obtained Presently she responds to pain but not voice Lungs are clear Heart regular rhythm with a 3/6 systolic murmur unchanged Abdomen is soft, nontender with positive bowel sounds Extremities 1+ edema of the upper extremities; PICC in the right upper extremity with no inflammation at the site Dominguez catheter remains in place Objective Current Medications: Current Medications Sig/Garrick Start time Last Medication Dose Route Stop Time Status Admin Acetaminophen 1,000 MG Q6-PRN PRN 03/17 1630 AC 03/20 N/A 1 UNIT IV 1552 Ceftriaxone Sodium 2,000 MG Q12H 03/17 1515 AC 03/30 IV 03/31 1100 0254 Heparin Sodium 5,000 UNIT Q8 03/25 1400 AC 03/30 (Porcine) SC 0610 Hydralazine HCl 10 MG Q8 PRN 03/23 1315 AC 03/25 IV 0720 Insulin Human Regular 0 Q6 03/17 1800 AC 03/30 SC 0616 Levetiracetam 1,500 MG Q12H 03/28 0600 AC 03/30 Sodium Chloride 100 ML IV 0610 Levothyroxine Sodium 12.5 MCG DAILY 03/19 1000 AC 03/29 IV 1031 Lorazepam 1 MG Q1P PRN 03/25 1100 AC 03/28 IV 2006 Pantoprazole Sodium 40 MG DAILY 03/18 1000 AC 03/30 IV 0909 Polyethylene Glycol 17 GM DAILY PRN 03/27 1215 AC PO Potassium Chloride 40 MEQ Q10H 03/26 0800 AC 03/30 Dextrose/Sodium 1,000 ML IV 0119 Chloride Valproate Sodium 1,000 MG Q8H 03/28 0200 AC 03/30 Sodium Chloride 100 ML IV 0207 Vital Signs & I&O Last 24 Hrs of Vitals and I&O: Vital Signs Date Time Temp Pulse Resp B/P Pulse O2 O2 Flow FiO2 Ox Delivery Rate 03/30 0910 30 03/30 0549 30 03/30 0400 98 Ventilator 30% 03/30 0320 30 03/30 0027 30 03/30 0000 98 Ventilator 30% 03/30 0000 98.9 94 14 114/68 98 Ventilator 30% 03/29 2227 30 03/29 1999 97 Ventilator 30% 03/29 1938 30 03/29 1608 30 03/29 1600 99 Ventilator 30% 03/29 1600 98.1 96 20 118/64 99 Ventilator 30% 03/29 1439 30 03/29 1213 30 03/29 1200 98 Ventilator 30% 03/29 1145 30 Intake & Output 03/30 1600 03/30 0800 03/30 0000 Intake Total 1376.2 1239.8 Output Total 800 700 Balance 576.2 539.8 Intake, IV 668.2 756.8 Intake, Oral 0 0 Intake, Other 216 95 Intake, Tube 492 388 Feeding Number 0 0 Bowel Movements Output, Urine 800 700 Laboratory Tests 03/30 03/29 0436 0420 Chemistry Sodium (137 - 145 mmol/L) 134 L 139 Potassium (3.5 - 5.1 mmol/L) 4.4 4.3 Chloride (98 - 107 mmol/L) 98 103 Carbon Dioxide (22 - 30 mmol/L) 31 H 28 Anion Gap (5 - 16) 5 8 BUN (7 - 17 mg/dL) 12 11 Creatinine (0.5 - 1.0 mg/dL) 0.6 0.6 Estimated GFR (>60 ml/min) > 60 > 60 Glucose (65 - 99 mg/dL) 248 H 213 H Calcium (8.4 - 10.2 mg/dL) 8.4 8.2 L Phosphorus (2.5 - 4.5 mg/dL) 3.6 3.1 Magnesium (1.6 - 2.3 mg/dL) 1.7 1.8 Total Bilirubin (0.2 - 1.3 mg/dL) 0.2 0.4 AST (14 - 36 U/L) 21 17 ALT (9 - 52 U/L) 29 30 Albumin (3.5 - 5.0 g/dL) 2.2 L 2.2 L Hematology CBC w Diff NO MAN DIFF REQ NO MAN DIFF REQ WBC (4.8 - 10.8 /CUMM) 12.3 H 11.9 H RBC (4.20 - 5.40 /CUMM) 3.11 L 3.13 L Hgb (12.0 - 16.0 G/DL) 8.9 L 9.1 L Hct (37 - 47 %) 27.2 L 27.2 L MCV (81.0 - 99.0 FL) 87.4 87.0 MCH (27.0 - 31.0 PG) 28.8 29.1 RDW (11.5 - 14.5 %) 14.2 13.7 Plt Count (130 - 400 /CUMM) 169 159 MPV (7.4 - 10.4 FL) 10.1 11.0 H Gran % (42.2 - 75.2 %) 74.5 77.1 H Lymphocytes % (20.5 - 51.1 %) 10.9 L 9.7 L Monocytes % (1.7 - 9.3 %) 13.6 H 12.4 H Eosinophils % (0 - 5 %) 0.9 0.5 Basophils % (0.0 - 2.0 %) 0.1 0.3 Absolute Granulocytes (1.4 - 6.5 /CUMM) 9.2 H 9.2 H Absolute Lymphocytes (1.2 - 3.4 /CUMM) 1.3 1.2 Absolute Monocytes (0.10 - 0.60 /CUMM) 1.7 H 1.5 H Absolute Eosinophils (0.0 - 0.7 /CUMM) 0.1 0.1 Absolute Basophils (0.0 - 0.2 /CUMM) 0 0 PUBS MCHC (33.0 - 37.0 G/DL) 32.9 L 33.5 Impression/Plan Impression/Plan Impression/Plan: Patient with strep pneumo meningitis, sepsis, respiratory failure, intractable seizures with 1 waxing and waning of mental status following cardiopulmonary arrest in the setting of continued seizure activity. 2. Pneumococcal meningitis, on ceftriaxone and vanco. 3. Respiratory failure secondary to ventilatory failure. 4. Malnutrition. 5. New systolic murmur, rule out etiology. SAMUEL done yesterday did not show vegetations 6. Hematoma of the lip, vs hsv now better with no biteblock Recommendations: Continue mechanical ventilator. CPAP trial not ready for extubation Continue seizure medications Continue other medications as noted. Antibiotics per ID Minimize sedation. Continue antihypertensive medications as noted. Patient is critically ill. Total time spent 36 minutes
[2016-03-30 16:00] VITALS: BP 120/72
--- NOTE | 2016-03-30 22:00 | NUR ---
PATIENT WILL OPEN EYES TO TACTILE STIMULI.VIRAL.MOVES ALL EXTREMITIES SPONTANEOUSLY. NOT FOLLOWING COMMANDS. MONITOR SINUS RHYTHM AT RATE OF 85. XL=674/60.VENTILATOR AT 30% WITH SAT OF 98%.TUBE FEED AT GOAL OF 60 ML/HR. RESIDUAL=40 ML.
--- NOTE | 2016-03-30 22:16 | PN- Resident CRCU ---
Subjective HPI/CRCU Issues: Patient in ICU for bacterial meningitis Saw patient at bedside this a.m. Her vitals are stable blood pressure in 130s without pressors she is still intubated with tidal volume around 450, PEEP of 5 and FiO2 30%. However this a.m. she seems less responsive to me she opened her eyes only to sternal rub. Previously she had been able to open her eyes on command and was able to grasp my fingers on command. Objective Vital Signs & I&O Last 8 Hrs of Vitals and I&O: Intake & Output 03/30 1600 Intake Total 1270 Output Total 800 Balance 470 Intake, IV 600 Intake, Oral 0 Intake, Tube 480 Feeding Intake, Tube 190 Irrigant Output, Stool 0 Output, Urine 800 Exam General Appearance: sedated, intubated Head: atraumatic, normal appearance Ears, Nose, Throat: normal ENT inspection Neck: supple Respiratory: no respiratory distress, intubated Cardiovascular: regular rate/rhythm Gastrointestinal: soft, non-tender Weaning Parameters NIF: 25 Minute Volume: 11.6 Resp rate: 31 Vt: 375 Heart Rate: 92 Weaning Schedule Start Time: 0915 Minute Volume: 10.4 Resp Rate: 18 Vt: 329 Heart Rate: 97 End Time: 0917 Minute Volume: 12.6 Resp Rate: 40 Vt: 209 Heart Rate: 97 Start Time: 1248 Minute Volume: 7.99 Resp Rate: 29 Vt: 273 Heart Rate: 86 End Time: 1348 Minute Volume: 6.79 Resp Rate: 24 Vt: 475 Heart Rate: 92 Current Medications: Current Medications Sig/Garrick Start time Last Medication Dose Route Stop Time Status Admin Acetaminophen 1,000 MG Q6-PRN PRN 03/17 1630 AC 03/20 N/A 1 UNIT IV 1552 Ceftriaxone Sodium 2,000 MG Q12H 03/17 1515 AC / IV 03/31 1100 1416 Heparin Sodium 5,000 UNIT Q8 03/25 1400 AC 03/30 (Porcine) SC 2139 Hydralazine HCl 10 MG Q8 PRN 03/23 1315 AC 03/25 IV 0720 Insulin Human Regular 0 Q6 03/17 1800 AC 03/30 SC 1817 Levetiracetam 1,500 MG Q12H 03/28 0600 AC 03/30 Sodium Chloride 100 ML IV 1810 Levothyroxine Sodium 12.5 MCG DAILY 03/19 1000 AC 03/30 IV 1024 Lorazepam 1 MG Q1P PRN 03/25 1100 AC 03/28 IV 2006 Pantoprazole Sodium 40 MG DAILY 03/18 1000 AC 03/30 IV 0909 Polyethylene Glycol 17 GM DAILY PRN 03/27 1215 AC PO Potassium Chloride 40 MEQ Q10H 03/26 0800 AC 03/30 Dextrose/Sodium 1,000 ML IV 2141 Chloride Valproate Sodium 1,000 MG Q8H 03/28 0200 AC 03/30 Sodium Chloride 100 ML IV 1810 Impression/Plan Impression/Problem List Impression: This is a 70 year old female with PMH of hypotension, hyperlipidemia, hypothyroidism DM who came was brought to hospital after being found unresponsive. She had one day of otalgia and difficulty hearing. Found down and unresponsive, subsequently brought to . In ED was found to have Tmax 102, AMS/ agitation, CT with pneumocephalus in temporal lobe, and opacification of mastoid air cells. Due to concern for bacterial meningitis 2/2 otitis she was admitted to ICU. PLAN Respiratory: Pt was intubated on 03/25/2016; Continues to be intubated but under no sedation. . Her respiratory status is stable. She is satting 30 FiO2, Hemodynamically stable, able to follow commands. Not ready for extubation. * Con't mechanical ventilation * Aspiration precautions * wean off trial Neuro/ID: 1. Step Pneumo Meningitis: Patient has strep pneumo meningitis confirmed by CSF culture and blood culture. Finished 4 day course of Decadron. Initial CSF white count was over 20,000 and repeat LP showed white blood cell of only 42. Of note, during admission she had a new 3/6 systolic murmur heard 3 days ago. There is concern for endocarditis in setting of s. pneumo bacteremia. 2x TTEs have both been negative for any valvular pathology. Of note she was started on vanco in addition to her ceftriaxone. Note that one culture of her LRC grew staph aureus. negative for MRSA; negative cxr. She is on vanco and ceftriaxone and wbc count trending down. Today at 12.8, * Continue ceftriaxone * Continue off Vanco * Repeat BCX: ngtd * Repeat Ucx: ngtd * SAMUEL negative * Negative cxr-no evidence of PNA * Follow final cultures and speciation/sensitivity for LRC 2. New onset Seizures: Patient has new onset seizures which started early a.m. on 03/24/2016. Since then she has had a repeat seizure activity, at least 2 episodes of GTC. The rest seem to be focal, localized to her right arm. EEG shows corresponding epileptiform activity in left hemisphere. Pt currently on Keppra and Depakote IV with doses increased overnight yesterday. * Appreciate Neurology consult * Con't Keppra nad Depakote CVS: Patient has history of diabetes, hypertension. Pt off all pressors. Stable con't monitor. Heme/Onc: Stable. Will con't monitor. Msk: Moving r. side less than left. Unsure if this is neurological injury or NMJ issue. Possibility of CVA in setting of meningitis not improbable. Con't monitor. GI: placed Dobbhoff on 03/20. Con't tube feeds. * RISS * Tube feeds * Protonix Con't Synthroid. FULL CODE NPO ALPS DVT PPX Problem List: 1. Lactic acidosis 2. Altered mental state 3. Left otitis media 4. Meningitis Pain Ratin Tomorrow's Labs & Rationales: icu cbc Plan DVT/Prophylaxis: pharmacological
[2016-03-31] VITALS: BP 130/60
[2016-03-31 04:51] LABS: ABSOLUTE BASOPHIL COUNT 0 /CUMM (0.0-0.2); ABSOLUTE EOSINOPHIL COUNT 0.1 /CUMM (0.0-0.7); ABSOLUTE GRANULOCYTE CT 6.1 /CUMM (1.4-6.5); ABSOLUTE LYMPH COUNT 1.2 /CUMM (1.2-3.4); ABSOLUTE MONOCYTE COUNT 1.3 /CUMM (0.10-0.60); BASOPHIL % 0.4 % (0.0-2.0); EOSINOPHIL % 1.1 % (0-5); GRANULOCYTE % 69.8 % (42.2-75.2); HEMATOCRIT 25.6 % (37-47); MEAN CORPUSCULAR HGB 28.5 PG (27.0-31.0); MEAN CORPUSCULAR HGB CONC 32.7 G/DL (33.0-37.0); MEAN CORPUSCULAR VOLUME 87.4 FL (81.0-99.0); MEAN PLATELET VOLUME 9.7 FL (7.4-10.4); PLATELET COUNT 149 /CUMM (130-400); RED BLOOD CELL CT 2.93 /CUMM (4.20-5.40); WHITE BLOOD CELL COUNT 8.7 /CUMM (4.8-10.8)
[2016-03-31 08:00] VITALS: BP 114/68
--- NOTE | 2016-03-31 10:40 | PN- Infect Dx ---
Subjective Subjective: Afebrile. She has been minimally responsive. Objective Last 24 Hrs of Vital Signs/I&O Vital Signs Date Time Temp Pulse Resp B/P Pulse O2 O2 Flow FiO2 Ox Delivery Rate 03/31 799 30 03/31 08 98.0 81 16 114/68 97 Ventilator 30% 03/31 0800 97 Ventilator 30% 03/31 0609 30 03/31 0415 30 03/31 0400 97 Ventilator 30% 03/31 0133 30 02/ 0000 97.1 81 17 130/60 98 Ventilator 30% 02 0000 98 Ventilator 30% 02 2229 30 03/30 2000 98 Ventilator 30% 03/30 1928 30 03/30 1612 30 / 1600 98 Ventilator 30% 03/30 1600 98.8 86 17 120/72 98 Ventilator 30% 03/30 1338 30 03/30 1200 98 Ventilator 30% 03/30 1130 30 Intake & Output 03/31 1600 03/31 0800 02/ 0000 Intake Total 1090 1336 Output Total 700 800 Balance 390 536 Intake, IV 600 640 Intake, Tube 395 480 Feeding Intake, Tube 95 216 Irrigant Output, Urine 700 800 Physical Exam Other Physical Findings: She is responsive to pain only with minimal if any response to verbal stimuli. She remains on the ventilator Neck supple Lungs scattered rhonchi bilaterally Heart regular rhythm with no murmur Abdomen is soft, nontender with positive bowel sounds Extremities no cyanosis, clubbing or edema; PICC in the right upper extremity with no inflammation at the site Dominguez catheter remains in place Results Last 24 Hours of Lab Results: Laboratory Tests 03/31 426 Chemistry Sodium (137 - 145 mmol/L) 136 L Potassium (3.5 - 5.1 mmol/L) 4.3 Chloride (98 - 107 mmol/L) 100 Carbon Dioxide (22 - 30 mmol/L) 30 Anion Gap (5 - 16) 6 BUN (7 - 17 mg/dL) 12 Creatinine (0.5 - 1.0 mg/dL) 0.6 Estimated GFR (>60 ml/min) > 60 Glucose (65 - 99 mg/dL) 242 H Calcium (8.4 - 10.2 mg/dL) 8.5 Phosphorus (2.5 - 4.5 mg/dL) 3.7 Magnesium (1.6 - 2.3 mg/dL) 1.7 Total Bilirubin (0.2 - 1.3 mg/dL) 0.2 AST (14 - 36 U/L) 22 ALT (9 - 52 U/L) 31 Albumin (3.5 - 5.0 g/dL) 2.2 L Hematology CBC w Diff NO MAN DIFF REQ WBC (4.8 - 10.8 /CUMM) 8.7 RBC (4.20 - 5.40 /CUMM) 2.93 L Hgb (12.0 - 16.0 G/DL) 8.4 L Hct (37 - 47 %) 25.6 L MCV (81.0 - 99.0 FL) 87.4 MCH (27.0 - 31.0 PG) 28.5 RDW (11.5 - 14.5 %) 14.0 Plt Count (130 - 400 /CUMM) 149 MPV (7.4 - 10.4 FL) 9.7 Gran % (42.2 - 75.2 %) 69.8 Lymphocytes % (20.5 - 51.1 %) 14.1 L Monocytes % (1.7 - 9.3 %) 14.6 H Eosinophils % (0 - 5 %) 1.1 Basophils % (0.0 - 2.0 %) 0.4 Absolute Granulocytes (1.4 - 6.5 /CUMM) 6.1 Absolute Lymphocytes (1.2 - 3.4 /CUMM) 1.2 Absolute Monocytes (0.10 - 0.60 /CUMM) 1.3 H Absolute Eosinophils (0.0 - 0.7 /CUMM) 0.1 Absolute Basophils (0.0 - 0.2 /CUMM) 0 PUBS MCHC (33.0 - 37.0 G/DL) 32.7 L Last 24 Hours of Keaton Results: No recent cultures Assessment/Plan Impression: Remains minimally responsive though with no further seizure activity reported, though cannot rule out the possibility of subclinical seizures. She remains afebrile with white blood cell count now normal on Ceftriaxone now Day 14 of treatment for pneumococcal meningitis/sepsis, with no evidence of endocarditis on the recent SAMUEL. Her hospital course was also complicated by probable aspiration pneumonia, with Staph aureus isolated from the sputum, covered by the Ceftriaxone, with recent chest x-rays negative. Suggestion: 1. Consider repeat EEG 2. Neurology follow-up 3. MRI of the head when extubated 4. Discontinue Ceftriaxone and follow off antibiotics
--- NOTE | 2016-03-31 11:07 | PN- CRCU ---
Subjective HPI/Critical Care Issues: pt seen and examined remains obtunded no sedation on mechanical ventilation afebrile Objective Current Medications: Current Medications Sig/Garrick Start time Last Medication Dose Route Stop Time Status Admin Acetaminophen 1,000 MG Q6-PRN PRN 03/17 1630 AC 03/20 N/A 1 UNIT IV 1552 Ceftriaxone Sodium 2,000 MG Q12H 03/17 1515 DC 03/31 IV 03/31 1100 0353 Heparin Sodium 5,000 UNIT Q8 03/25 1400 AC 03/31 (Porcine) SC 0535 Hydralazine HCl 10 MG Q8 PRN 03/23 1315 AC 03/25 IV 0720 Insulin Human Regular 0 Q6 03/17 1800 AC 03/31 SC 0545 Levetiracetam 1,500 MG Q12H 03/28 0600 AC 03/31 Sodium Chloride 100 ML IV 0530 Levothyroxine Sodium 12.5 MCG DAILY 03/19 1000 AC 03/31 IV 0928 Lorazepam 1 MG Q1P PRN 03/25 1100 AC 03/28 IV 2006 Pantoprazole Sodium 40 MG DAILY 03/18 1000 AC 03/31 IV 0928 Polyethylene Glycol 17 GM DAILY PRN 03/27 1215 AC PO Potassium Chloride 40 MEQ Q10H 03/26 0800 AC 03/30 Dextrose/Sodium 1,000 ML IV 2141 Chloride Valproate Sodium 1,000 MG Q8H 03/28 0200 AC 03/31 Sodium Chloride 100 ML IV 1024 Vital Signs & I&O Last 24 Hrs of Vitals and I&O: Vital Signs Date Time Temp Pulse Resp B/P Pulse O2 O2 Flow FiO2 Ox Delivery Rate 03/31 0800 30 03/31 0800 98.0 81 16 114/68 97 Ventilator 30% 03/31 0800 97 Ventilator 30% 03/31 0609 30 03/31 0415 30 03/31 0400 97 Ventilator 30% 03/31 0133 30 03/31 0000 97.1 81 17 130/60 98 Ventilator 30% 03/31 0000 98 Ventilator 30% 03/30 2229 30 03/30 1999 98 Ventilator 30% 03/30 1928 30 03/30 1612 30 03/30 1600 98 Ventilator 30% 03/30 1600 98.8 86 17 120/72 98 Ventilator 30% 03/30 1338 30 03/30 1200 98 Ventilator 30% 03/30 1130 30 Intake & Output 03/31 1600 03/31 0800 03/31 0000 Intake Total 1090 1336 Output Total 700 800 Balance 390 536 Intake, IV 600 640 Intake, Tube 395 480 Feeding Intake, Tube 95 216 Irrigant Output, Urine 700 800 Patient 189 lb Weight Exam Other Physical Findings: gen intubated heent ett cvs s1, s2, murmur lungs transmitted abd soft bs+ ext minor edema of UE Results Last 24 Hrs of Lab Results: Laboratory Tests 03/31/16 0427: Anion Gap 6, Estimated GFR > 60, Glucose 242 H, Calcium 8.5, Phosphorus 3.7, Magnesium 1.7, Total Bilirubin 0.2, AST 22, ALT 31, Albumin 2.2 L, CBC w Diff NO MAN DIFF REQ, RBC 2.93 L, MCV 87.4, MCH 28.5, RDW 14.0, MPV 9.7, Gran % 69.8 , Lymphocytes % 14.1 L, Monocytes % 14.6 H, Eosinophils % 1.1, Basophils % 0.4 , Absolute Granulocytes 6.1, Absolute Lymphocytes 1.2, Absolute Monocytes 1.3 H , Absolute Eosinophils 0.1, Absolute Basophils 0, PUBS MCHC 32.7 L Impression/Plan Impression/Plan Impression/Plan: Impression 70 year old woman -pneumococcal meningitis/sepsis -respiratory failure requiring mechanical ventilation -aspiration pneumonia, staph aureus in sputum Plan -cont abx -neurology f/u -id f/u -following off abx per ID -MRI of head when pt is off mechanical ventilation -not ready for spontaneous breathing trials given mental status -dvt prophylaxis at all times TTS 40 min
--- NOTE | 2016-03-31 13:19 | NUR ---
Patient is lethargic- arousable to a sternal rub only- will flutter eyes open only for a few seconds. Moves all extremities but not to command- withdraws to pain. Pupils are 3mm and equal. Soft bilateral wrist restraints in place. NSR on tele monitor, HR= 80's. SBP: 120's. pulses. Remains intubated with a #8 to the right at 24cm, Vent settings currently: AC 10/450/30/5- lungs clear and diminished with scant rhonchi. Roper thin secretions noted when suctioning- scant clear thin secretions noted orally- Dry scabbed areas to lower lips- OGT in place with tube feeds infusing at goal rate of 60mls/hr with 95ml water flushes every 4 hours- Abdomen is soft with +bowel sounds. Dominguez in place draining clear yellow urine. Skin is intact with +1 generalized edema- She was placed on a catergory 2 mattress. LOYDA PICC in place and is WNL. D5NS with 40meq KCL infusing at 50mls/hr. Iv seizure medications per order. Dr. Pearson in to assess patient with this RN- family at the bedside and was updated on POC- Will continue to closely monitor.
--- NOTE | 2016-03-31 13:41 | PN- Resident CRCU ---
Subjective HPI/CRCU Issues: Pt in ICU for: bacterial meningitis Saw patient at bedside this a.m. Her vitals are stable her blood pressure is around 104/60 off pressors, afebrile, still mechanically ventilated. Past 48 hours patient has become gradually less responsive. Yesterday she opened her eyes for sternal rub. Today she seemed even more lethargic and even more reluctant to open her eyes for me. Per family she is much less responsive. Objective Vital Signs & I&O Last 8 Hrs of Vitals and I&O: Intake & Output 03/31 1600 Intake Total Output Total Balance Patient 85.786 kg Weight Exam General Appearance: no apparent distress, intubated, lethargic Head: atraumatic, normal appearance Ears, Nose, Throat: LOWER LIP WITH TRAUMA Neck: supple Respiratory: normal breath sounds, chest non-tender Cardiovascular: regular rate/rhythm, SYSTOLIC MURMUR 04/28 Weaning Parameters NIF: 25 Minute Volume: 11.6 Resp rate: 31 Vt: 375 Heart Rate: 92 Weaning Schedule Start Time: 0915 Minute Volume: 10.4 Resp Rate: 18 Vt: 329 Heart Rate: 97 End Time: 0917 Minute Volume: 12.6 Resp Rate: 40 Vt: 209 Heart Rate: 97 Start Time: 1248 Minute Volume: 7.99 Resp Rate: 29 Vt: 273 Heart Rate: 86 End Time: 1348 Minute Volume: 6.79 Resp Rate: 24 Vt: 475 Heart Rate: 92 Current Medications: Current Medications Sig/Garrick Start time Last Medication Dose Route Stop Time Status Admin Acetaminophen 1,000 MG Q6-PRN PRN 03/17 1630 AC 03/20 N/A 1 UNIT IV 1552 Ceftriaxone Sodium 2,000 MG Q12H 03/17 1515 DC 03/31 IV 03/31 1100 0353 Heparin Sodium 5,000 UNIT Q8 03/25 1400 AC 03/31 (Porcine) SC 1336 Hydralazine HCl 10 MG Q8 PRN 03/23 1315 AC 03/25 IV 0720 Insulin Human Regular 0 Q6 03/17 1800 AC 03/31 SC 1213 Levetiracetam 1,500 MG Q12H 03/28 0600 AC 03/31 Sodium Chloride 100 ML IV 0530 Levothyroxine Sodium 12.5 MCG DAILY 03/19 1000 AC 03/31 IV 0928 Lorazepam 1 MG Q1P PRN 03/25 1100 AC 03/28 IV 2006 Pantoprazole Sodium 40 MG DAILY 03/18 1000 AC 03/31 IV 0928 Polyethylene Glycol 17 GM DAILY PRN 03/31 1215 AC PO Polyethylene Glycol 17 GM DAILY PRN 03/27 1215 AC PO Potassium Chloride 40 MEQ Q10H 03/26 0800 AC 03/31 Dextrose/Sodium 1,000 ML IV 1141 Chloride Valproate Sodium 1,000 MG Q8H 03/28 0200 AC 03/31 Sodium Chloride 100 ML IV 1024 Impression/Plan Impression/Problem List Impression: This is a 70 year old female with PMH of hypotension, hyperlipidemia, hypothyroidism DM who came was brought to hospital after being found unresponsive. She had one day of otalgia and difficulty hearing. Found down and unresponsive, subsequently brought to . In ED was found to have Tmax 102, AMS/ agitation, CT with pneumocephalus in temporal lobe, and opacification of mastoid air cells. Due to concern for bacterial meningitis 2/2 otitis she was admitted to ICU. PLAN Respiratory: Pt was intubated on 03/25/2016; Continues to be intubated but under no sedation. . Her respiratory status is stable. She is satting 30 FiO2, Hemodynamically stable, unable to follow any commands. Not ready for extubation. * Con't mechanical ventilation * Aspiration precautions Neuro/ID: 1. Step Pneumo Meningitis: Patient has strep pneumo meningitis confirmed by CSF culture and blood culture. Finished 4 day course of Decadron. Initial CSF white count was over 20,000 and repeat LP showed white blood cell of only 42. 2x TTEs and one SAMUEL have both been negative for any valvular pathology. Got treated with 14 days of ceftriaxone with vancomycin intermittently. Vanco given Mar 18- then Mar 25-Mar 28. Note that one culture of her LRC grew staph aureus. negative for MRSA; negative cxr. Today at 12.8, * Continue ceftriaxone Day 14 * Continue off Vanco * Repeat BCX: ngtd * Repeat Ucx: ngtd * SAMUEL negative * Negative cxr-no evidence of PNA * Follow final cultures and speciation/sensitivity for LRC 2. New onset Seizures: Patient has new onset seizures which started early a.m. on 03/24/2016. Since then she has had a repeat seizure activity, at least 2 episodes of GTC. The rest seem to be focal, localized to her right arm. EEG shows corresponding epileptiform activity in left hemisphere. Pt currently on Keppra and Depakote IV with doses increased overnight yesterday. * Appreciate Neurology consult * Con't Keppra nad Depakote CVS: Patient has history of diabetes, hypertension. Pt off all pressors. Stable con't monitor. Heme/Onc: Stable. Will con't monitor. Msk: Moving r. side less than left. Unsure if this is neurological injury or NMJ issue. Possibility of CVA in setting of meningitis not improbable. Con't monitor. GI: placed Dobbhoff on 03/20. Con't tube feeds. * RISS * Tube feeds * Protonix Con't Synthroid. FULL CODE NPO ALPS DVT PPX Problem List: 1. Lactic acidosis 2. Altered mental state 3. Left otitis media 4. Sepsis 5. Meningitis Pain Ratin Tomorrow's Labs & Rationales: icu cbc Plan DVT/Prophylaxis: pharmacological
[2016-03-31 16:00] VITALS: BP 112/64
[2016-04-01] VITALS: BP 116/68
[2016-04-01 05:03] LABS: ABSOLUTE BASOPHIL COUNT 0 /CUMM (0.0-0.2); ABSOLUTE EOSINOPHIL COUNT 0.1 /CUMM (0.0-0.7); ABSOLUTE LYMPH COUNT 1.2 /CUMM (1.2-3.4); ABSOLUTE MONOCYTE COUNT 1.3 /CUMM (0.10-0.60); BASOPHIL % 0.4 % (0.0-2.0); EOSINOPHIL % 0.9 % (0-5); GRANULOCYTE % 72.5 % (42.2-75.2); HEMATOCRIT 26.4 % (37-47); MEAN CORPUSCULAR HGB CONC 33.3 G/DL (33.0-37.0); MEAN PLATELET VOLUME 10.1 FL (7.4-10.4); PLATELET COUNT 186 /CUMM (130-400); RBC DISTRIBUTION WIDTH 13.7 % (11.5-14.5); RED BLOOD CELL CT 3.03 /CUMM (4.20-5.40); WHITE BLOOD CELL COUNT 9.6 /CUMM (4.8-10.8)
[2016-04-01 08:00] VITALS: BP 148/70
--- NOTE | 2016-04-01 08:47 | RADIOLOGY REPORT ---
EXAMINATION: XR PORTABLE CHEST CLINICAL INFORMATION: Patient is intubated. Presumptive diagnosis: Atelectasis. COMPARISON: None TECHNIQUE: Portable AP 75 degrees erect view of the chest was obtained. FINDINGS: The endotracheal tube terminates 2 cm above the eugenio. Nasogastric tube terminates below the diaphragm, the tip out of the field of view. There is no congestion. Accounting for somewhat suboptimal technique, there is no definite focal consolidation or atelectasis. IMPRESSION: Endotracheal tube 2 cm both eugenio. No acute cardiopulmonary process.
--- NOTE | 2016-04-01 10:04 | PN- Infect Dx ---
Subjective Subjective: Afebrile. No seizure activity noted. Objective Last 24 Hrs of Vital Signs/I&O Vital Signs Date Time Temp Pulse Resp B/P Pulse O2 O2 Flow FiO2 Ox Delivery Rate 04/01 0750 30 04/01 0553 30 04/01 0400 97 Ventilator 30% 04/01 0251 30 04/01 0045 30 04/01 0000 96 Ventilator 30% 04/01 0000 96.8 78 12 116/68 96 Ventilator 30% 03/31 2144 30 03/31 2000 98 Ventilator 30% 03/31 1924 30 03/31 1607 30 03/31 1600 97.0 84 12 112/64 97 Ventilator 30% 03/31 1600 97 Ventilator 30% 03/31 1200 98 Ventilator 30% 03/31 1145 30 Intake & Output 04/01 1600 04/01 0800 04/01 0000 Intake Total 1376.5 1342.4 Output Total 1100 1100 Balance 276.5 242.4 Intake, IV 741.5 673.4 Intake, Oral 0 0 Intake, Other 190 240 Intake, Tube 445 429 Feeding Number 0 0 Bowel Movements Output, Urine 1100 1100 Physical Exam Other Physical Findings: She is minimally responsive, only to pain Lungs are clear Heart regular rhythm with no change in her 3/6 systolic murmur Extremities trace edema of all extremities; PICC in the right upper extremity with no inflammation at the site Neuro no seizure activity noted Dominguez catheter remains in place Results Last 24 Hours of Lab Results: Laboratory Tests 04/01 412 Chemistry Sodium (137 - 145 mmol/L) 133 L Potassium (3.5 - 5.1 mmol/L) 4.6 Chloride (98 - 107 mmol/L) 96 L Carbon Dioxide (22 - 30 mmol/L) 34 H Anion Gap (5 - 16) 3 L BUN (7 - 17 mg/dL) 12 Creatinine (0.5 - 1.0 mg/dL) 0.6 Estimated GFR (>60 ml/min) > 60 Glucose (65 - 99 mg/dL) 258 H Calcium (8.4 - 10.2 mg/dL) 8.8 Phosphorus (2.5 - 4.5 mg/dL) 3.9 Magnesium (1.6 - 2.3 mg/dL) 1.8 Total Bilirubin (0.2 - 1.3 mg/dL) 0.3 AST (14 - 36 U/L) 20 ALT (9 - 52 U/L) 28 Albumin (3.5 - 5.0 g/dL) 2.4 L Hematology CBC w Diff NO MAN DIFF REQ WBC (4.8 - 10.8 /CUMM) 9.6 RBC (4.20 - 5.40 /CUMM) 3.03 L Hgb (12.0 - 16.0 G/DL) 8.8 L Hct (37 - 47 %) 26.4 L MCV (81.0 - 99.0 FL) 87.0 MCH (27.0 - 31.0 PG) 29.0 RDW (11.5 - 14.5 %) 13.7 Plt Count (130 - 400 /CUMM) 186 MPV (7.4 - 10.4 FL) 10.1 Gran % (42.2 - 75.2 %) 72.5 Lymphocytes % (20.5 - 51.1 %) 12.6 L Monocytes % (1.7 - 9.3 %) 13.6 H Eosinophils % (0 - 5 %) 0.9 Basophils % (0.0 - 2.0 %) 0.4 Absolute Granulocytes (1.4 - 6.5 /CUMM) 7.0 H Absolute Lymphocytes (1.2 - 3.4 /CUMM) 1.2 Absolute Monocytes (0.10 - 0.60 /CUMM) 1.3 H Absolute Eosinophils (0.0 - 0.7 /CUMM) 0.1 Absolute Basophils (0.0 - 0.2 /CUMM) 0 PUBS MCHC (33.0 - 37.0 G/DL) 33.3 Last 24 Hours of Keaton Results: No recent cultures Assessment/Plan Impression: Remains minimally responsive and, though no recent seizure activity reported, cannot rule out the possibility of subclinical seizures. Other complications of meningitis, hydrocephalus, infarct and lateral sinus thrombosis must also be considered. She remains afebrile with white blood cell count remaining normal now off antibiotics after a two-week course of Ceftriaxone for pneumococcal meningitis/sepsis, with no evidence of endocarditis on the recent SAMUEL. Suggestion: 1. Would repeat CT of the head 2. Repeat EEG 3. Neurology follow-up 4. Eventual MRI of the head when extubated 5. Continue to follow off antibiotics
--- NOTE | 2016-04-01 10:06 | PN- CRCU ---
Subjective HPI/Critical Care Issues: pt seen and examined responsive to tactile stimuli mechanical ventilation no sedation ROS unobtainable given obtunded state Objective Current Medications: Current Medications Sig/Garrick Start time Last Medication Dose Route Stop Time Status Admin Acetaminophen 1,000 MG Q6-PRN PRN 03/17 1630 AC 03/20 N/A 1 UNIT IV 1552 Ceftriaxone Sodium 2,000 MG Q12H 03/17 1515 DC 03/31 IV 03/31 1100 0353 Heparin Sodium 5,000 UNIT Q8 03/25 1400 AC 04/01 (Porcine) SC 0611 Hydralazine HCl 10 MG Q8 PRN 03/23 1315 AC 03/25 IV 0720 Insulin Human Regular 0 Q6 03/17 1800 AC 04/01 SC 0622 Levetiracetam 1,500 MG Q12H 03/28 0600 AC 04/01 Sodium Chloride 100 ML IV 0612 Levothyroxine Sodium 12.5 MCG DAILY 03/19 1000 AC 04/01 IV 0925 Lorazepam 1 MG Q1P PRN 03/25 1100 AC 03/28 IV 2006 Pantoprazole Sodium 40 MG DAILY 03/18 1000 AC 04/01 IV 0925 Polyethylene Glycol 17 GM DAILY PRN 03/31 1215 AC PO Polyethylene Glycol 17 GM DAILY PRN 03/27 1215 AC 03/31 PO 1700 Potassium Chloride 40 MEQ Q10H 03/26 0800 DC 04/01 Dextrose/Sodium 1,000 ML IV 0611 Chloride Sodium Chloride 1,000 ML Q20H 04/01 0845 AC 04/01 IV 0925 Valproate Sodium 1,000 MG Q8H 03/28 0200 AC 04/01 Sodium Chloride 100 ML IV 0222 Vital Signs & I&O Last 24 Hrs of Vitals and I&O: Vital Signs Date Time Temp Pulse Resp B/P Pulse O2 O2 Flow FiO2 Ox Delivery Rate 04/01 0750 30 04/01 0553 30 04/01 0400 97 Ventilator 30% 04/01 0251 30 04/01 0045 30 04/01 0000 96 Ventilator 30% 04/01 0000 96.8 78 12 116/68 96 Ventilator 30% 03/31 2144 30 03/31 2000 98 Ventilator 30% 03/31 1924 30 03/31 1607 30 03/31 1600 97.0 84 12 112/64 97 Ventilator 30% 03/31 1600 97 Ventilator 30% 03/31 1200 98 Ventilator 30% 03/31 1145 30 Intake & Output 04/01 1600 04/01 0800 04/01 0000 Intake Total 1376.5 1342.4 Output Total 1100 1100 Balance 276.5 242.4 Intake, IV 741.5 673.4 Intake, Oral 0 0 Intake, Other 190 240 Intake, Tube 445 429 Feeding Number 0 0 Bowel Movements Output, Urine 1100 1100 Exam Other Physical Findings: gen intubated heent ett, lips with crusted lesions, healing cvs s1, s2, murmur lungs transmitted abd soft bs+ ext minor edema of UE Results Last 24 Hrs of Lab Results: Laboratory Tests 04/01/16 0413: Anion Gap 3 L, Estimated GFR > 60, Glucose 258 H, Calcium 8.8, Phosphorus 3.9, Magnesium 1.8, Total Bilirubin 0.3, AST 20, ALT 28, Albumin 2.4 L, CBC w Diff NO MAN DIFF REQ, RBC 3.03 L, MCV 87.0, MCH 29.0, RDW 13.7, MPV 10.1, Gran % 72.5, Lymphocytes % 12.6 L, Monocytes % 13.6 H, Eosinophils % 0.9, Basophils % 0.4, Absolute Granulocytes 7.0 H, Absolute Lymphocytes 1.2, Absolute Monocytes 1.3 H, Absolute Eosinophils 0.1, Absolute Basophils 0, PUBS MCHC 33.3 Impression/Plan Impression/Plan Impression/Plan: Impression 70 year old woman -pneumococcal meningitis/sepsis -respiratory failure requiring mechanical ventilation -aspiration pneumonia, staph aureus in sputum Plan -cont abx -neurology f/u, repeat EEG, to rule out subclinical seizures -id f/u -following off abx per ID -MRI of head if and when able to extubate -not ready for spontaneous breathing trials given mental status -dvt prophylaxis at all times TTS 35 min
--- NOTE | 2016-04-01 13:24 | PN- Resident CRCU ---
Subjective HPI/CRCU Issues: Pt in ICU for: strep pneumo meningitis intubated Saw pt this AM; she remains lethargic for me. Hard to arouse with sternal rub. She was fighting the vent when I was in there and that was the only time she opened her eyes for me. Her vitals have remained stable with BP in 110-120 systolic without pressors. Her HR remained around 80s-90s and she remains intubated due to her mental status with the vent on TV 450, Fio2 30 and Rate 10. She is getting 50CC/HR of IVF. Objective Vital Signs & I&O Last 8 Hrs of Vitals and I&O: Vital Signs Date Time Temp Pulse Resp B/P Pulse O2 O2 Flow FiO2 Ox Delivery Rate 04/01 1200 98 Ventilator 30% 04/01 1109 30 04/01 0800 97 Ventilator 30% 04/01 0800 98.2 82 12 148/70 97 Ventilator 30% 04/01 0750 30 04/01 0553 30 04/01 0400 97 Ventilator 30% 04/01 0251 30 04/01 0045 30 02/ 0000 96 Ventilator 30% 04/01 0000 96.8 78 12 116/68 96 Ventilator 30% 03/31 2144 30 02/ 2000 98 Ventilator 30% 03/31 1924 30 02 1607 30 02 1600 97.0 84 12 112/64 97 Ventilator 30% 03/31 1600 97 Ventilator 30% Intake & Output / 1600 02/07 0800 02/07 0000 Intake Total 1376.5 1342.4 Output Total 1100 1100 Balance 276.5 242.4 Intake, IV 741.5 673.4 Intake, Oral 0 0 Intake, Other 190 240 Intake, Tube 445 429 Feeding Number 0 0 Bowel Movements Output, Urine 1100 1100 Exam General Appearance: well developed/nourished, no apparent distress, sedated, intubated Head: atraumatic, normal appearance Ears, Nose, Throat: normal pharynx Neck: normal inspection, supple Respiratory: normal breath sounds, intubated Cardiovascular: regular rate/rhythm Weaning Parameters NIF: 25 Minute Volume: 11.6 Resp rate: 31 Vt: 375 Heart Rate: 92 Weaning Schedule Start Time: 0915 Minute Volume: 10.4 Resp Rate: 18 Vt: 329 Heart Rate: 97 End Time: 916 Minute Volume: 12.6 Resp Rate: 40 Vt: 209 Heart Rate: 97 Start Time: 1248 Minute Volume: 7.99 Resp Rate: 29 Vt: 273 Heart Rate: 86 End Time: 1348 Minute Volume: 6.79 Resp Rate: 24 Vt: 475 Heart Rate: 92 Nutrition Nutrition: tube feeding Current Medications: Current Medications Sig/Garrick Start time Last Medication Dose Route Stop Time Status Admin Acetaminophen 1,000 MG Q6-PRN PRN 03/17 1630 AC 03/20 N/A 1 UNIT IV 1552 Acyclovir 1 SULEMAN Q5 04/06 1200 AC 04/12 TOP 2023 Ampicillin Sodium/ 3,000 MG Q6 04/10 1800 AC 04/12 Sulbactam Sodium IV 04/23 0400 1750 Sodium Chloride 100 ML Heparin Sodium 5,000 UNIT Q8 03/25 1400 AC 04/12 (Porcine) SC 1331 Hydralazine HCl 10 MG Q8 PRN 03/23 1315 AC 04/12 IV 1805 Insulin Human Regular 0 Q6 04/08 0600 AC 04/12 SC 1740 Levetiracetam 1,500 MG Q12H 03/28 0600 AC 04/12 Sodium Chloride 100 ML IV 1721 Levothyroxine Sodium 12.5 MCG DAILY 03/19 1000 AC 04/12 IV 0956 Magnesium Sulfate 1 GM ONCE ONE 04/12 0845 DC 04/12 Dextrose/Water 100 ML IV 04/12 1244 0851 Pantoprazole Sodium 40 MG DAILY 03/18 1000 AC 04/12 IV 0957 Polyethylene Glycol 17 GM DAILY PRN 03/31 1215 AC 04/02 PO 0025 Potassium Chloride 10 MEQ ONCE ONE 04/12 0845 DC 04/12 IV 04/12 0846 0851 Potassium Chloride 10 MEQ ONCE ONE 04/12 0845 DC 04/12 IV 04/12 0846 0851 Valproate Sodium 1,000 MG Q8H 03/28 0200 AC 04/12 Sodium Chloride 100 ML IV 1709 Impression/Plan Impression/Problem List Impression: This is a 70 year old female with PMH of hypotension, hyperlipidemia, hypothyroidism DM who came was brought to hospital after being found unresponsive. She had one day of otalgia and difficulty hearing. Found down and unresponsive, subsequently brought to . In ED was found to have Tmax 102, AMS/ agitation, CT with pneumocephalus in temporal lobe, and opacification of mastoid air cells. Due to concern for bacterial meningitis 2/2 otitis she was admitted to ICU. PLAN Respiratory: Pt was intubated on 03/25/2016; Continues to be intubated but under no sedation. Her respiratory status is stable. She is satting 30 FiO2, Hemodynamically stable, unable to follow any commands. Not ready for extubation. * Con't mechanical ventilation * Aspiration precautions Neuro/ID: 1. Step Pneumo Meningitis: Patient has strep pneumo meningitis confirmed by CSF culture and blood culture. Finished 4 day course of Decadron. Initial CSF white count was over 20,000 and repeat LP showed white blood cell of only 42. 2x TTEs and one SAMUEL have both been negative for any valvular pathology. Got treated with 14 days of ceftriaxone (stopped on 03/31/2016) and vancomycin intermittently. Vanco given Mar 18- then Mar 25-Mar 28. Note that one culture of her LRC grew staph aureus. negative for MRSA; negative cxr. Today WBC at 9.6. * D/C ceftriaxone after 14 days of treatment. * Continue off Vanco * Repeat BCX: ngtd * Repeat Ucx: ngtd * SAMUEL negative * Negative cxr-no evidence of PNA * Follow final cultures and speciation/sensitivity for LRC 2. New onset Seizures: Patient has new onset seizures which started early a.m. on 03/24/2016. Since then she has had a repeat seizure activity, at least 2 episodes of GTC. The rest seem to be focal, localized to her right arm. EEG shows corresponding epileptiform activity in left hemisphere. Pt currently on Keppra and Depakote IV with increased doses. Given pt's depressed mental status for the past 72 hrs we would do repeat CT and EEG to r/o any acute intracranial process. * Appreciate Neurology consult * Con't Keppra nad Depakote * EEG * CT head CVS: Patient has history of diabetes, hypertension. Pt off all pressors. Stable con't monitor. Heme/Onc: Stable. Will con't monitor. Msk: Moving r. side less than left initially. Now she is not moving any limb to command. GI: placed Dobbhoff on 03/20. Con't tube feeds. * RISS * Tube feeds * Protonix Nephro: Pt is having hyponatremia with her Na trending from down the past week: 140--139--134--136--133 today. She was on D51/2 NS for fluids. Discontinued those and started NSat 50. Will con't monitor. * NS at 50cc/hr Con't Synthroid. FULL CODE TUBE FEED CHEM/ALPS DVT PPX Problem List: 1. Meningitis 2. Sepsis 3. Left otitis media 4. Altered mental state 5. Lactic acidosis Pain Ratin Tomorrow's Labs & Rationales: ICU CBC Plan DVT/Prophylaxis: pharmacological
[2016-04-01 16:00] VITALS: BP 106/68
--- NOTE | 2016-04-01 16:32 | CT SCAN REPORT ---
EXAMINATION: CT HEAD WITHOUT AND WITH CONTRAST CLINICAL INFORMATION: Pneumococcal meningitis. Assess for CVA, bleed, mass or thrombosis. COMPARISON: CT scan of the head 03/24/2016. TECHNIQUE: Contiguous axial imaging was performed from the skull base to vertex before and after the administration of 95 mL of Optiray 320 intravenous contrast. DLP: 1201.41 mGy-cm FINDINGS: There is no evidence of acute intracranial hemorrhage or territorial infarction. There is enhancement in the leptomeningeal spaces in the high bilateral frontoparietal regions, more extensive on the left than the right. There is equivocal enhancement in the left temporal lobe (image 17/64, series 5). No abnormal mass effect or midline shift is seen. There is slight loss of lynch-white differentiation in the high left frontoparietal regions in the area of the enhancement described above. No significant edematous changes are seen in the gyri. No extra-axial fluid collections are identified. The ventricles are normal in size. The soft tissues are unremarkable. There are degenerative changes at the right temporomandibular joint. The study redemonstrates significant opacification of the left mastoid air cells and middle ear cavity. On the current study there is new opacification of the right mastoid air cells and middle ear cavity. On the postcontrast images flow is demonstrated in the dural venous sinuses. There are retention cysts in the left maxillary and anterior right ethmoid sinuses with mild mucoperiosteal thickening in the right sphenoid and frontal sinuses. IMPRESSION: 1. There is abnormal enhancement along the subarachnoid spaces in the high bilateral frontoparietal regions, consistent with sequelae of meningitis. A component of cerebritis cannot be excluded. Recommend MRI scan of the brain for further assessment. 2. There has been interval development of opacification of the right mastoid air cells and right middle ear cavity; the changes on the left appear relatively stable. 3. The dural venous sinuses appear to be patent. This could also be further assessed with MRV. 4. There are no large territorial infarcts or bleeds. 5. This critical result was discussed with Raymond Eller by telephone on 04/01/2016 at 4:26 PM and it was ascertained that the content and urgency of the report was understood at the time of direct communication.
[2016-04-02] VITALS: BP 104/68
[2016-04-02 05:21] LABS: ABSOLUTE BASOPHIL COUNT 0 /CUMM (0.0-0.2); ABSOLUTE EOSINOPHIL COUNT 0.1 /CUMM (0.0-0.7); ABSOLUTE GRANULOCYTE CT 6.1 /CUMM (1.4-6.5); ABSOLUTE LYMPH COUNT 1.2 /CUMM (1.2-3.4); ABSOLUTE MONOCYTE COUNT 1.1 /CUMM (0.10-0.60); BASOPHIL % 0.3 % (0.0-2.0); EOSINOPHIL % 1.1 % (0-5); GRANULOCYTE % 72.1 % (42.2-75.2); HEMATOCRIT 25.9 % (37-47); MEAN CORPUSCULAR HGB CONC 33.5 G/DL (33.0-37.0); MEAN CORPUSCULAR VOLUME 86.5 FL (81.0-99.0); PLATELET COUNT 185 /CUMM (130-400); RBC DISTRIBUTION WIDTH 14.1 % (11.5-14.5); WHITE BLOOD CELL COUNT 8.4 /CUMM (4.8-10.8)
[2016-04-02 08:00] VITALS: BP 110/62
--- NOTE | 2016-04-02 10:06 | RADIOLOGY REPORT ---
EXAMINATION: XR PORTABLE CHEST CLINICAL INFORMATION: Intubated patient. Worsening atelectasis. COMPARISON: Several prior chest x-rays, most recent of which is dated 04/01/2016. TECHNIQUE: Portable AP semierect view of the chest was obtained. FINDINGS: Multiple external EKG leads are seen coiled over the right upper chest, limiting assessment. Endotracheal tube tip approximately 2 cm above eugenio, unchanged. Enteric tube courses into the abdomen but tip not included. Cardiomediastinal silhouette is normal. Calcification of the aortic arch is seen. Mild bibasilar subsegmental atelectasis noted. No focal consolidation, effusion, edema or pneumothorax. Osteopenia is suggested. IMPRESSION: 1. Endotracheal tube tip approximately 2 cm above eugenio. 2. Enteric tube tip not included but seen coursing into the abdomen. 3. Mild bibasilar subsegmental atelectasis.
--- NOTE | 2016-04-02 10:25 | PN- CRCU ---
Subjective HPI/Critical Care Issues: The patient remains intubated. Her mental status continues to wax and wane. She has not been weaned from the ventilator due to her mental status. No seizure activity has been reported. She has not been receiving sedation. Day 9, mechanical ventilation. Objective Current Medications: Current Medications Sig/Garrick Start time Last Medication Dose Route Stop Time Status Admin Acetaminophen 1,000 MG Q6-PRN PRN 03/17 1630 AC 03/20 N/A 1 UNIT IV 1552 Bisacodyl 10 MG ONCE ONE 04/02 0730 DC ME 04/02 0831 Heparin Sodium 5,000 UNIT Q8 03/25 1400 AC 04/02 (Porcine) SC 0534 Hydralazine HCl 10 MG Q8 PRN 03/23 1315 AC 03/25 IV 0720 Insulin Human Regular 0 Q6 03/17 1800 AC 04/02 SC 0534 Levetiracetam 1,500 MG Q12H 03/28 0600 AC 04/02 Sodium Chloride 100 ML IV 0533 Levothyroxine Sodium 12.5 MCG DAILY 03/19 1000 AC 04/02 IV 0904 Lorazepam 1 MG Q1P PRN 03/25 1100 AC 03/28 IV 2006 Magnesium Sulfate 1 GM ONCE ONE 04/02 1000 AC Dextrose/Water 100 ML IV 04/02 1359 Pantoprazole Sodium 40 MG DAILY 03/18 1000 AC 04/02 IV 0907 Polyethylene Glycol 17 GM DAILY PRN 03/31 1215 AC 04/02 PO 0025 Polyethylene Glycol 17 GM DAILY PRN 03/27 1215 DC 03/31 PO 1700 Sodium Chloride 1,000 ML Q20H 04/01 0845 AC 04/02 IV 0517 Valproate Sodium 1,000 MG Q8H 03/28 0200 AC 04/02 Sodium Chloride 100 ML IV 0907 Vital Signs & I&O Last 24 Hrs of Vitals and I&O: Vital Signs Date Time Temp Pulse Resp B/P Pulse O2 O2 Flow FiO2 Ox Delivery Rate 04/02 0815 30 04/02 0555 30 04/02 0400 97 Ventilator 30% 04/02 0331 30 04/02 0017 30 04/02 0000 97 Ventilator 30% 04/02 0000 97.6 75 12 104/68 97 Ventilator 30% 04/01 2208 30 04/01 2000 98 Ventilator 30% 04/01 1925 30 04/01 1630 30 04/01 1600 98 Ventilator 30% 04/01 1600 97.1 79 10 106/68 97 Ventilator 30% 04/01 1412 30 04/01 1200 98 Ventilator 30% 04/01 1109 30 Intake & Output 04/02 1600 04/02 0800 04/02 0000 Intake Total 1295.2 1534.9 Output Total 700 950 Balance 595.2 584.9 Intake, IV 641.2 963.9 Intake, Oral 0 0 Intake, Other 216 191 Intake, Tube 438 380 Feeding Number 0 0 Bowel Movements Output, Urine 700 950 Exam General Appearance: lethargic, intubated, appears chronically ill Head: atraumatic, normal appearance, lower lip appears black and scabbed over Neck: normal inspection, supple Respiratory: no respiratory distress, a few scattered rhonchi are heard Cardiovascular: regular rate/rhythm Abdomen: normal bowel sounds, soft, non-tender Extremities: no edema Skin: intact, normal color, warm/dry Results Last 24 Hrs of Lab Results: Laboratory Tests 04/02/16 0413: Anion Gap 7, Estimated GFR > 60, Glucose 201 H, Calcium 8.5, Phosphorus 4.1, Magnesium 1.7, Total Bilirubin 0.3, AST 19, ALT 29, Albumin 2.3 L, CBC w Diff NO MAN DIFF REQ, RBC 3.00 L, MCV 86.5, MCH 29.0, RDW 14.1, MPV 10.0, Gran % 72.1, Lymphocytes % 13.9 L, Monocytes % 12.6 H, Eosinophils % 1.1, Basophils % 0.3, Absolute Granulocytes 6.1, Absolute Lymphocytes 1.2, Absolute Monocytes 1.1 H, Absolute Eosinophils 0.1, Absolute Basophils 0, PUBS MCHC 33.5 Impression/Plan Impression/Plan Impression/Plan: 1. Ongoing encephalopathy although no recent seizure activity. 2. Pneumococcal meningitis, on ceftriaxone and vanco. 3. Respiratory failure secondary to ventilatory failure - day 9 mechanical ventilation. 4. Malnutrition. 5. Systolic murmur without evidence of endocarditis on TTE and SAMUEL. Recommendations: * Monitor off antibiotics as per ID. * Will begin weaning trials. * Await EEG results. * Will follow up neurology recommendations. * Continue to follow antiseizure regimen as per neurology. * SQ heparin for DVT prophylaxis to continue. * Will need to consider tracheostomy placement if the patient's mental status does not improve. * Continue tubes feeds at goal. * Continue all supportive care for now.
--- NOTE | 2016-04-02 10:39 | PN- Infect Dx ---
Subjective Subjective: Afebrile. She is more responsive and following commands. Objective Last 24 Hrs of Vital Signs/I&O Vital Signs Date Time Temp Pulse Resp B/P Pulse O2 O2 Flow FiO2 Ox Delivery Rate 04/02 0715 30 04/02 0555 30 04/02 0400 97 Ventilator 30% 04/02 0331 30 04/02 0017 30 04/02 0000 97 Ventilator 30% 04/02 0000 97.6 75 12 104/68 97 Ventilator 30% 04/01 2208 30 04/01 2000 98 Ventilator 30% 04/01 1925 30 04/01 1630 30 04/01 1600 98 Ventilator 30% 04/01 1600 97.1 79 10 106/68 97 Ventilator 30% 04/01 1412 30 04/01 1200 98 Ventilator 30% 04/01 1109 30 Intake & Output 04/02 1600 04/02 0800 / 0000 Intake Total 1295.2 1534.9 Output Total 700 950 Balance 595.2 584.9 Intake, IV 641.2 963.9 Intake, Oral 0 0 Intake, Other 216 191 Intake, Tube 438 380 Feeding Number 0 0 Bowel Movements Output, Urine 700 950 Physical Exam Other Physical Findings: She awakens to voice and appears to be following commands HEENT crusted lower lip lesions Neck is supple with no adenopathy Lungs are clear Heart regular rhythm with no change in her murmur Extremities trace edema of the lower extremities; PICC in the right upper extremity with no inflammation at the site Dominguez catheter remains in place Results Last 24 Hours of Lab Results: Laboratory Tests 04/02 412 Chemistry Sodium (137 - 145 mmol/L) 134 L Potassium (3.5 - 5.1 mmol/L) 4.5 Chloride (98 - 107 mmol/L) 94 L Carbon Dioxide (22 - 30 mmol/L) 33 H Anion Gap (5 - 16) 7 BUN (7 - 17 mg/dL) 14 Creatinine (0.5 - 1.0 mg/dL) 0.5 Estimated GFR (>60 ml/min) > 60 Glucose (65 - 99 mg/dL) 201 H Calcium (8.4 - 10.2 mg/dL) 8.5 Phosphorus (2.5 - 4.5 mg/dL) 4.1 Magnesium (1.6 - 2.3 mg/dL) 1.7 Total Bilirubin (0.2 - 1.3 mg/dL) 0.3 AST (14 - 36 U/L) 19 ALT (9 - 52 U/L) 29 Albumin (3.5 - 5.0 g/dL) 2.3 L Hematology CBC w Diff NO MAN DIFF REQ WBC (4.8 - 10.8 /CUMM) 8.4 RBC (4.20 - 5.40 /CUMM) 3.00 L Hgb (12.0 - 16.0 G/DL) 8.7 L Hct (37 - 47 %) 25.9 L MCV (81.0 - 99.0 FL) 86.5 MCH (27.0 - 31.0 PG) 29.0 RDW (11.5 - 14.5 %) 14.1 Plt Count (130 - 400 /CUMM) 185 MPV (7.4 - 10.4 FL) 10.0 Gran % (42.2 - 75.2 %) 72.1 Lymphocytes % (20.5 - 51.1 %) 13.9 L Monocytes % (1.7 - 9.3 %) 12.6 H Eosinophils % (0 - 5 %) 1.1 Basophils % (0.0 - 2.0 %) 0.3 Absolute Granulocytes (1.4 - 6.5 /CUMM) 6.1 Absolute Lymphocytes (1.2 - 3.4 /CUMM) 1.2 Absolute Monocytes (0.10 - 0.60 /CUMM) 1.1 H Absolute Eosinophils (0.0 - 0.7 /CUMM) 0.1 Absolute Basophils (0.0 - 0.2 /CUMM) 0 PUBS MCHC (33.0 - 37.0 G/DL) 33.5 Last 24 Hours of Keaton Results: No recent cultures Recent Imaging Studies: CT of the head with IV contrast April 01 reveals abnormal enhancement along the subarachnoid spaces in the high bilateral frontoparietal regions, consistent with sequelae of meningitis; equivocal enhancement in the left temporal lobe; ventricles are normal in size; significant opacification of the left mastoid air cells and middle ear cavity, with new opacification of the right mastoid air cells and middle ear cavity; flow is demonstrated in the dural venous sinuses on the post contrast images Assessment/Plan Impression: Appears more responsive, with no recent seizure activity reported, and with temperatures and white blood cell count remaining normal off antibiotics. The recent CT scan of the head reveals evidence of bilateral otitis and mastoiditis as well as equivocal enhancement in the left temporal lobe, which might suggest cerebritis and will need to review further with Radiology, ENT and Neurology. Suggestion: 1. Await repeat EEG 2. Neurology follow-up 3. Will discuss CT findings further with Radiology and ENT 4. Eventual MRI of the head when extubated 5. Continue to follow off antibiotics
--- NOTE | 2016-04-02 13:05 | NUR ---
Patient is lethagic, currently arousable to sternal rub only. This morning she was able to squeeze hands on command- mental status waxes and wanes. Able to move all extremities. Pupils are 4mm and brisk. Soft bilateral wrist restraints in place. NSR on tele monitor. HR= 60-80's. SBP: 100-120's + pulses. Remains intubated with a #8 to the right at 24cm, Vent setting currently AC 10/450/30/5- lungs clear and diminished. She was able to tolerate a cpap trial with a psv of 6 followed by a trial on t-piece. O2 sats remained stable. Clear thin secretions noted when suctioning. Scabs to the lower lip. Abdomen is soft and non tender with + bowel sounds, + flatus- INC of a loose stool, OGT in place- with Glucerna 1.2 infusing at 60mls/hr with 90ml water flushes every [address] in place draining clear yellow urine. Dr. Ferrer notified of increased output approx 300-500mls every hour, Trace generalized edema is noted. Skin otherwise intact. LOYDA PICC WNL- NS @ 50mls/hr. No s/s of pain noted. Family updated on POC. Awaiting EEG. Will continue to closely monitor patient.
--- NOTE | 2016-04-02 13:37 | PN- Resident CRCU ---
Subjective HPI/CRCU Issues: Pt in ICU for: bacterial meningits; intubated 24 Hour Events: Saw pt at bedside this AM. She seemed more alert this AM. She was undergoing breathing trial and she coughed several times, fluttered eyes. Per RT pt opened her eyes on command and was even ablet to squeeze fingers on command. Overnight she remained stable: afebrile, with BP 98-105 systolic and 53-68 diastolic; HR in 90s this AM. Objective Vital Signs & I&O Last 8 Hrs of Vitals and I&O: Intake & Output 04/02 1600 Intake Total Output Total Balance Patient 84.425 kg Weight Exam General Appearance: well developed/nourished, no apparent distress, intubated, mild distress Head: atraumatic, normal appearance Ears, Nose, Throat: normal ENT inspection Neck: supple Respiratory: normal breath sounds Cardiovascular: regular rate/rhythm, systolic murmur Gastrointestinal: soft Extremities: normal inspection, normal capillary refill, no edema Weaning Parameters NIF: 16 Minute Volume: 6.57 Resp rate: 18 Vt: 478 Heart Rate: 79 Weaning Schedule Start Time: 0820 Minute Volume: 6.57 Resp Rate: 18 Vt: 478 Heart Rate: 79 End Time: 0948 Minute Volume: 7.68 Resp Rate: 21 Vt: 350 Heart Rate: 88 Start Time: 0950 Minute Volume: 7.99 Resp Rate: 29 Vt: 273 Heart Rate: 88 End Time: 1111 Minute Volume: 6.79 Resp Rate: 24 Vt: 475 Heart Rate: 79 IV Drips IV Drips: TF Nutrition Nutrition: tube feeding Current Medications: Current Medications Sig/Garrick Start time Last Medication Dose Route Stop Time Status Admin Acetaminophen 1,000 MG Q6-PRN PRN 03/17 1630 AC 03/20 N/A 1 UNIT IV 1552 Bisacodyl 10 MG ONCE ONE 04/02 0830 DC 04/02 VT 04/02 0831 1126 Heparin Sodium 5,000 UNIT Q8 03/25 1400 AC 04/02 (Porcine) SC 0534 Hydralazine HCl 10 MG Q8 PRN 03/23 1315 AC 03/25 IV 0720 Insulin Human Regular 0 Q6 03/17 1800 AC 04/02 SC 1159 Levetiracetam 1,500 MG Q12H 03/28 0600 AC 04/02 Sodium Chloride 100 ML IV 0533 Levothyroxine Sodium 12.5 MCG DAILY 03/19 1000 AC 04/02 IV 0904 Lorazepam 1 MG Q1P PRN 03/25 1100 AC 03/28 IV 2005 Magnesium Sulfate 1 GM ONCE ONE 04/02 1000 AC 04/02 Dextrose/Water 100 ML IV 04/02 1359 1200 Pantoprazole Sodium 40 MG DAILY 03/18 1000 AC 04/02 IV 0907 Polyethylene Glycol 17 GM DAILY PRN 03/31 1215 AC 04/02 PO 0025 Polyethylene Glycol 17 GM DAILY PRN 03/27 1215 DC 03/31 PO 1700 Sodium Chloride 1,000 ML Q20H 04/01 0845 AC 04/02 IV 0517 Valproate Sodium 1,000 MG Q8H 03/28 0200 AC 04/02 Sodium Chloride 100 ML IV 0907 Impression/Plan Impression/Problem List Impression: This is a 70 year old female with PMH of hypotension, hyperlipidemia, hypothyroidism DM who came was brought to hospital after being found unresponsive. She had one day of otalgia and difficulty hearing. Found down and unresponsive, subsequently brought to . In ED was found to have Tmax 102, AMS/ agitation, CT with pneumocephalus in temporal lobe, and opacification of mastoid air cells. Due to concern for bacterial meningitis 2/2 otitis she was admitted to ICU. PLAN Respiratory: Pt was intubated on 03/25/2016; Continues to be intubated but under no sedation. Her respiratory status is stable. She is satting 30 FiO2, Hemodynamically stable, unable to follow any commands. Not ready for extubation. * Con't mechanical ventilation--> attempted wean off trial today * Aspiration precautions Neuro/ID: 1. Step Pneumo Meningitis: Patient has strep pneumo meningitis confirmed by CSF culture and blood culture. Finished 4 day course of Decadron. Initial CSF white count was over 20,000 and repeat LP showed white blood cell of only 42. 2x TTEs and one SAMUEL have both been negative for any valvular pathology. Got treated with 14 days of ceftriaxone (stopped on 03/31/2016) and vancomycin intermittently. Vanco given Mar 18- then Mar 25-Mar 28. Note that one culture of her LRC grew staph aureus. negative for MRSA; negative cxr. Today WBC at 8.4. Her mental status is now primary issue; she seems less rousable. Does not respond to commands. She is already treated for seizures. Want to rule out break through seizures or any acute intracranial pathology. * D/C ceftriaxone * Negative cxr-no evidence of PNA * CT-head with IV contrast * EEG * Neuro consult 2. New onset Seizures: Patient has new onset seizures which started early a.m. on 03/24/2016. Since then she has had a repeat seizure activity, at least 2 episodes of GTC. The rest seem to be focal, localized to her right arm. EEG shows corresponding epileptiform activity in left hemisphere. Pt currently on Keppra and Depakote IV with increased doses. Given pt's depressed mental status for the past 72 hrs we would do repeat CT and EEG to r/o any acute intracranial process. * Appreciate Neurology consult * Con't Keppra nad Depakote * EEG * CT head CVS: Patient has history of diabetes, hypertension. Pt off all pressors. Stable con't monitor. Heme/Onc: Stable. Will con't monitor. Msk: Moving r. side less than left initially. Now she is not moving any limb to command. GI: placed Dobbhoff on 03/20. Con't tube feeds. * RISS * Tube feeds * Protonix Nephro: Pt is having hyponatremia with her Na trending from down the past week: 140--139--134--136--133--//>134 today. She was on D51/2 NS for fluids until when her NA was at 133. Now on NS at 50cc . Will con't monitor. * NS at 50cc/hr Con't Synthroid. FULL CODE TUBE FEED CHEM/ALPS DVT PPX Problem List: 1. Meningitis 2. Sepsis 3. Left otitis media 4. Altered mental state 5. Lactic acidosis Pain Ratin Tomorrow's Labs & Rationales: icu cbc Plan DVT/Prophylaxis: pharmacological
[2016-04-02 16:00] VITALS: BP 130/70
--- NOTE | 2016-04-02 20:56 | ELECTROENCEPHALOGRAM REPORT ---
See Addendum Electroencephalogram Report Electroencephalogram Results Date of service: 03/26/16 Attending MD: Talisha AVILA MD Cat Wagon Operator: Brittni Gutierrez EEG Number: [id number] Test Utilizes: 10-20 system, 21 lead 18 channel digital recording done portably in the ICU on this intubated patient Pertinent Hx/Physical/Neuro Findings/Clin Diagnosis: Altered mental status. Pneumococcal meningitis with seizures. Prior EEGs have shown left central epileptiform discharges. Inpatient Medications: Current Medications Sig/Garrick Start time Last Medication Dose Route Stop Time Status Admin Acetaminophen 1,000 MG Q6-PRN PRN 03/17 1630 AC 03/20 N/A 1 UNIT IV 1552 Bisacodyl 10 MG ONCE ONE 04/02 0830 DC 04/02 AL 04/02 0831 1126 Heparin Sodium 5,000 UNIT Q8 03/25 1400 AC 04/02 (Porcine) SC 1425 Hydralazine HCl 10 MG Q8 PRN 03/23 1315 AC 03/25 IV 0720 Insulin Human Regular 0 Q6 03/17 1800 AC 04/02 SC 1826 Levetiracetam 1,500 MG Q12H 03/28 0600 AC 04/02 Sodium Chloride 100 ML IV 1826 Levothyroxine Sodium 12.5 MCG DAILY 03/19 1000 AC 04/02 IV 0904 Lorazepam 1 MG Q1P PRN 03/25 1100 AC 03/28 IV 2006 Magnesium Sulfate 1 GM ONCE ONE 04/02 1000 DC 04/02 Dextrose/Water 100 ML IV 04/02 1359 1200 Pantoprazole Sodium 40 MG DAILY 03/18 1000 AC 04/02 IV 0907 Polyethylene Glycol 17 GM DAILY PRN 03/31 1215 AC 04/02 PO 0025 Polyethylene Glycol 17 GM DAILY PRN 03/27 1215 DC 03/31 PO 1700 Sodium Chloride 1,000 ML Q20H 04/01 0845 AC 04/02 IV 0517 Valproate Sodium 1,000 MG Q8H 03/28 0200 AC 04/02 Sodium Chloride 100 ML IV 1826 Interpretation: The background is composed of generalized low amplitude beta activity with brief moments of irregular low amplitude alpha frequency activity in the posterior regions. Bifrontal synchronous intermittent rhythmic moderate to high amplitude delta activity "FIRDA" is seen throughout the record. No lateralized, focal or epileptiform abnormalities are noted. activation procedures were deferred, and the recording abrieviated to about 15 minutes as profuse sweating interfered with the scalp electrodes. Impression: Abnormal due to FIRDA which often indicates dysfunction in deep subcortical regions and can be seen in toxic and metabolic encephalopathies. No further focal or epileptiform abnormalities are found.
--- NOTE | 2016-04-02 21:07 | NUR ---
lethargic and needs tactile stimulation for response.pupils reactive. no seizures noted.+pp.remain ventilated with no change to settings.cpap done with sats >92%.oral care done.gen edema.ivf cont via right arm.tf cont via ogt. [place] patent with good uo.
[2016-04-03] VITALS: BP 118/70
--- NOTE | 2016-04-03 02:31 | NUR ---
0000 PATIENT RECEIVED LETHARGIC- AT TIMES WILL OPEN EYES TO NAME AND TRACK WITH GAZE FOR SHORT PERIODS BUT DOES NOT FOLLOW COMMANDS, SKIN PINK, WARM AND DRY, PAIN MEDICINE PHYSICIAN SINUS WITHOUT ECTOPY, HEART RATE 70'S/MIN, ETT TO VENTILATOR WITH O2 SAT 96 TO 97% ON FIO2 OF 30%, BREATHE SOUNDS CLEAR, ETS DONE PRN WITH SMALL AMTS THIN WHITE SECRETIONS OBTAINED EACH TIME, OGT IN PLACE- GASTRIC RESIDUAL CHECK 3ML, ABDOMEN SOFT, +BS, HOB ELEVATED- TOLERATING TF WELL, SIMMONS TO GRAVITY DRAINAGE WITH CLEAR YELLOW UO NOTED
[2016-04-03 05:24] LABS: ABSOLUTE BASOPHIL COUNT 0.1 /CUMM (0.0-0.2); ABSOLUTE EOSINOPHIL COUNT 0.1 /CUMM (0.0-0.7); ABSOLUTE GRANULOCYTE CT 5.6 /CUMM (1.4-6.5); ABSOLUTE LYMPH COUNT 1.1 /CUMM (1.2-3.4); BASOPHIL % 0.7 % (0.0-2.0); EOSINOPHIL % 0.8 % (0-5); GRANULOCYTE % 71.7 % (42.2-75.2); HEMATOCRIT 26.4 % (37-47); MEAN CORPUSCULAR HGB CONC 33.6 G/DL (33.0-37.0); MEAN CORPUSCULAR VOLUME 86.4 FL (81.0-99.0); MEAN PLATELET VOLUME 10.4 FL (7.4-10.4); PLATELET COUNT 198 /CUMM (130-400); RED BLOOD CELL CT 3.05 /CUMM (4.20-5.40); WHITE BLOOD CELL COUNT 7.9 /CUMM (4.8-10.8)
--- NOTE | 2016-04-03 07:45 | NUR ---
NO CHANGES IN STATUS NOTED OVERNIGHT, AWAITING AM MD ROUNDS
[2016-04-03 08:00] VITALS: BP 122/78
--- NOTE | 2016-04-03 08:29 | RADIOLOGY REPORT ---
EXAMINATION: XR PORTABLE CHEST CLINICAL INFORMATION: Intubated. COMPARISON: Chest x-rays of 04/02/2016, 04/01/2016 and multiple priors dated back to 03/17/2016. CT chest of 03/17/2016. TECHNIQUE: Portable AP view of the chest was obtained. FINDINGS: An endotracheal tube tip is approximately 2 cm above the eugenio. A right PICC is unchanged in configuration with the tip projecting over the lower SVC. Multiple cardiac leads and wires overlie the chest. An enteric tube is noted coursing below the diaphragm, its tip is external to the field of view. The lungs are hypoexpanded. No focal consolidation, changes of congestion or pleural effusions are seen. No pneumothorax. The cardiomediastinal silhouette is stable and normal. There are degenerative changes at the bilateral acromioclavicular joints. IMPRESSION: 1. Endotracheal tube tip is approximately 2 cm above the eugenio. 2. Low lung volumes. No acute pulmonary process.
--- NOTE | 2016-04-03 09:25 | Cons- Ear,Nose&Throat ---
General Information and HPI Consulting Request Date of Consult: 04/03/16 Requested By: AUSTIN ALDRICH,Talisha DICKSON Reason for Consult: WORSENING EAR/MASTOID FINDINGS AND MENTAL STATUS Source of Information: old records Exam Limitations: unable to give history History of Present Illness: PATIENT SEEN FOR A FOLLOW UP HAS HAD INITIAL IMPROVEMENT IN THE EAR INFECTION FINDINGS AND THE MENTAL STATUS, BUT HAS SUBSEQUENTLY DEVELOPED A WORSENING OF MENTAL STATUS (BARELY ABLE TO FOLLOW COMMANDS), AND WORSENING OF CT FINDINGS IN BOTH THE RIGHT AND LEFT MIDDLE EAR SPACES AND THE MASTOIDS. RECEIVED PHONE CALL FROM DR MCKEON YESTERDAY OFF ABX FOR COUPLE OF DAYS Allergies/Medications Allergies: Coded Allergies: Sulfa (Sulfonamide Antibiotics) (Intermediate, TURNS RED 03/17/16) Home Med List: Aspirin (Ecotrin*) 81 MG TABLET.DR 1 TAB PO DAILY HEART HEALTH (Reported) Atorvastatin Calcium 10 MG TABLET 1 TAB PO DAILY CHOLESTEROL (Reported) Insulin NPL/Insulin Lispro (Humalog Mix 75-25 Kwikpen) 100 UNIT/ML (75-25) INSULN.PEN DIABETES (Reported) Levothyroxine Sodium 25 MCG TABLET 1 TAB PO DAILY AC THYROID (Reported) Losartan Potassium 100 MG TABLET 1 TAB PO DAILY HEART (Reported) Metformin HCl 1,000 MG TABLET 1 TAB PO BID DIABETES (Reported) Past History Medical History Blood Transfusion Hx: No Neurological: NONE EENT: NONE Cardiovascular: hypertension, hyperlipidemia Respiratory: NONE Gastrointestinal: NONE Hepatic: NONE Renal: NONE Musculoskeletal: NONE Psychiatric: NONE Endocrine: diabetes, hypothyroidism, obesity Blood Disorders: NONE Cancer(s): NONE 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 Home Services at Home: None Smoking Status: Unknown If Ever Smoked Functional Ability ADLs Independent: dressing, eating, toileting, bathing. Ambulation: independent IADLs Independent: shopping, housework, finances, food prep, telephone, transportation , medication admin. Review of Systems Review of Systems: NONCONTRIBUTORY Exam & Diagnostic Data Vital Signs and I&O Vital Signs Date Time Temp Pulse Resp B/P Pulse O2 O2 Flow FiO2 Ox Delivery Rate 04/03 858 30 04/03 0800 98 Ventilator 30% 04/03 799 100.3 87 87 122/78 99 Ventilator 30% 04/03 0552 30 04/03 0400 98 Ventilator 30% 04/03 0328 30 04/03 0023 30 04/03 0000 96 Ventilator 30% 04/03 0000 96.9 72 12 118/70 96 Ventilator 30% 04/02 2216 30 04/02 2053 96 Ventilator 40% 04/02 1925 30 04/02 1629 30 04/02 1600 97 Ventilator 30% 04/02 1600 97.0 87 28 130/70 98 Ventilator 30% 04/02 1314 30 / 1200 97 Ventilator 30% 04/02 1113 30 Intake & Output 04/03 1600 04/03 0800 04/03 0000 04/02 1600 04/02 0800 04/02 0000 Intake Total 1295 1290 1305 1295.2 1534.9 Output Total 955 1820 2150 700 950 Balance 340 -530 -845 595.2 584.9 Intake, IV 635 620 640 641.2 963.9 Intake, Oral 0 0 Intake, Other 216 191 Intake, Tube 470 480 475 438 380 Feeding Intake, Tube 190 190 190 Irrigant Number 1 1 0 0 Bowel Movements Output, Urine 955 1820 2150 700 950 Patient 185 lb 186 lb Weight Physical Exam: AROUSABLE BARELY RESPONDS TO COMMANDS INTUBATED IN ICU EARS WITHOUT ERYTHEMA MASTOIDS NOT ERYTHEMATOUS NOSE CLEAR OC/OP ETT TUBE IN PLACE SOME SKIN IRRITATION AROUND LOWER LIP NECK SUPPLE Assessment/Plan Assessment/Plan PATIENT WITH CONTINUED MENTAL STATUS DETERIORATION/LACK OF IMPROVEMENT, AND CT FINDINGS OF WORSENING OPACIFICATION WITHIN THE MASTOID AND MIDDLE EAR SPACES BILATERALLY (RIGHT SIDE IS A NEW FINDING). PATIENT UNDERWENT BILATERAL PE TUBE PLACEMENT AT THE BEDSIDE (MUCH APPRECIATE EFFORTS OF ICU, OR, AND ANESTHESIA STAFF FOR GETTING THIS ACCOMPLISHED). SEROUS/MUCOID FLUID RETRIEVED FROM BOTH EARS MICROBIOLOGICAL SPECIMENS SENT BY ICU STAFF SHE TOLERATED THE PROCEDURE WELL. KEEP WATER OUT OF THE EARS UNTIL THE TUBES FALL OUT (6-12 MONTHS) USE CIPRODEX DROPS 4 GTT BID AWAIT CULTURE RESULTS, BUT WOULD HAVE LOW THRESHOLD TO RESUME ABX AGAIN. UNDER DIRECTION OF DR MCKEON. DISCUSSED OUTCOMES AND FINDINGS WITH DR MCKEON AND WITH PATIENT'S , PROSPER. THANKS EDNA CARRERO MD, FACS Consult Acknowledgment - Thank you for your consult request. Attending MD Review Statement Attending Statement Attending MD Statement: examined this patient, discuss w/resident/PA/LIFE SKILLS SPECIALIST, discussed with family, reviewed EMR data (avail), discussed w/nursing, reviewed images
--- NOTE | 2016-04-03 09:33 | PN- CRCU ---
Subjective HPI/Critical Care Issues: The patient continues to be lethargic and encephalopathic. She remains intubated. She did well with trialing on a pressure support wean yesterday, however it is not clear that she is able to protect her airway. The CT had demonstrated abnormal enhancement along the subarachnoid spaces consistent with sequela of meningitis. A component of cerebritis could not be excluded. There was also opacification of the right mastoid and right middle ear with the left ear changes appearing stable. The patient had a low grade temp of 100.3. Objective Current Medications: Current Medications Sig/Garrick Start time Last Medication Dose Route Stop Time Status Admin Acetaminophen 1,000 MG Q6-PRN PRN 03/17 1630 AC 03/20 N/A 1 UNIT IV 1552 Heparin Sodium 5,000 UNIT Q8 03/25 1400 AC 04/03 (Porcine) SC 0549 Hydralazine HCl 10 MG Q8 PRN 03/23 1315 AC 03/25 IV 0720 Insulin Human Regular 0 Q6 03/17 1800 AC 04/03 SC 0557 Levetiracetam 1,500 MG Q12H 03/28 0600 AC 04/03 Sodium Chloride 100 ML IV 0549 Levothyroxine Sodium 12.5 MCG DAILY 03/19 1000 AC 04/02 IV 0904 Lorazepam 1 MG Q1P PRN 03/25 1100 AC 03/28 IV 2006 Magnesium Sulfate 1 GM ONCE ONE 04/02 1000 DC 04/02 Dextrose/Water 100 ML IV 04/02 1359 1200 Pantoprazole Sodium 40 MG DAILY 03/18 1000 AC 04/02 IV 0907 Polyethylene Glycol 17 GM DAILY PRN 03/31 1215 AC 04/02 PO 0025 Sodium Chloride 1,000 ML Q20H 04/01 0845 AC 04/03 IV 0102 Valproate Sodium 1,000 MG Q8H 03/28 0200 AC 04/03 Sodium Chloride 100 ML IV 0154 Vital Signs & I&O Last 24 Hrs of Vitals and I&O: Vital Signs Date Time Temp Pulse Resp B/P Pulse O2 O2 Flow FiO2 Ox Delivery Rate 04/03 0759 30 04/03 0800 98 Ventilator 30% 04/03 799 100.3 87 87 122/78 99 Ventilator 30% 04/03 0552 30 04/03 0400 98 Ventilator 30% 04/03 0328 30 04/03 0023 30 04/03 0000 96 Ventilator 30% 04/03 0000 96.9 72 12 118/70 96 Ventilator 30% 04/02 2216 30 04/02 2053 96 Ventilator 40% 04/02 1925 30 04/02 1629 30 04/02 1600 97 Ventilator 30% 04/02 1600 97.0 87 28 130/70 98 Ventilator 30% 04/02 1314 30 / 1200 97 Ventilator 30% 04/02 1113 30 Intake & Output 04/03 1600 04/03 0800 04/03 0000 Intake Total 1295 1290 Output Total 955 1820 Balance 340 -530 Intake, IV 635 620 Intake, Tube 470 480 Feeding Intake, Tube 190 190 Irrigant Number 1 Bowel Movements Output, Urine 955 1820 Patient 185 lb Weight Exam General Appearance: lethargic, intubated, appears chronically ill Head: atraumatic, normal appearance, lower lip appears black and scabbed over Neck: normal inspection, supple Respiratory: no respiratory distress, a few scattered rhonchi are heard Cardiovascular: regular rate/rhythm Abdomen: normal bowel sounds, soft, non-tender Extremities: no edema Skin: intact, normal color, warm/dry Results Last 24 Hrs of Lab Results: Laboratory Tests 04/03/16 0400: Anion Gap 7, Estimated GFR > 60, Glucose 230 H, Calcium 8.5, Phosphorus 3.7, Magnesium 1.8, Total Bilirubin 0.2, AST 18, ALT 29, Albumin 2.3 L, CBC w Diff NO MAN DIFF REQ, RBC 3.05 L, MCV 86.4, MCH 29.0, RDW 14.0, MPV 10.4, Gran % 71.7, Lymphocytes % 14.2 L, Monocytes % 12.6 H, Eosinophils % 0.8, Basophils % 0.7, Absolute Granulocytes 5.6, Absolute Lymphocytes 1.1 L, Absolute Monocytes 1.0 H, Absolute Eosinophils 0.1, Absolute Basophils 0.1, PUBS MCHC 33.6 04/02/16 1540: Ur Random Creatinine 19.4, Ur Random Sodium 140 H, Ur Random Potassium 22.4, Fraction Sodium Excret 2.7 H Diagnostic Data CXR Findings: 1. Endotracheal tube tip is approximately 2 cm above the eugenio. 2. Low lung volumes. No acute pulmonary process. CT Scan Findings: 1. There is abnormal enhancement along the subarachnoid spaces in the high bilateral frontoparietal regions, consistent with sequelae of meningitis. A component of cerebritis cannot be excluded. Recommend MRI scan of the brain for further assessment. 2. There has been interval development of opacification of the right mastoid air cells and right middle ear cavity; the changes on the left appear relatively stable. 3. The dural venous sinuses appear to be patent. This could also be further assessed with MRV. 4. There are no large territorial infarcts or bleeds. 5. This critical result was discussed with Raymond Eller by telephone on 04/01/2016 at 4:26 PM and it was ascertained that the content and urgency of the report was understood at the time of direct communication. Miscellaneous Findings: EEG: Abnormal due to FIRDA which often indicates dysfunction in deep subcortical regions and can be seen in toxic and metabolic encephalopathies. No further focal or epileptiform abnormalities are found. Impression/Plan Impression/Plan Impression/Plan: 1. Ongoing encephalopathy, now with evidence of cerebritis and mastoiditis, no seizures seen on EEG, results consistent with a toxic/metabolic encephalopathy. 2. Pneumococcal meningitis. 3. Respiratory failure secondary to ventilatory failure - day 10 mechanical ventilation. 4. Malnutrition. 5. Systolic murmur without evidence of endocarditis on TTE and SAMUEL. Recommendations: * Await procedure by ENT for bilateral drainage. * Will continue weaning trials. * Again, will need to consider tracheostomy placement if the patient's mental status does not improve. * Will follow up neurology recommendations - called to see the patient. * Continue to follow antiseizure regimen as per neurology. * Case discussed between housestaff and ID - panculture, restart ceftriaxone and repeat head CT. * Continue tubes feeds at goal. * Continue DVT and GI prophylaxis. * Continue all supportive care for now.
--- NOTE | 2016-04-03 09:38 | Operative Report ---
Operative/Inv Procedure Report Surgery Date: 04/03/16 Name of Procedure: BILATERAL MYRINGOTOMY AND TYMPANOSTOMY TUBE PLACEMENT Pre-Operative Diagnosis: ACUTE OTITIS MEDIA, MASTOIDITIS BILATERAL, MENINGITIS Post-Operative Diagnosis: ACUTE OTITIS MEDIA, MASTOIDITIS BILATERAL, MENINGITIS Estimated Blood Loss: none Surgeon/Rental Sales Representative: EDNA CARERRO MD, FACS Anesthesia: moderate sedation (ADMINISTERED BY ANESTHESIOLOGY) Monitors: STANDARD ICU MONITORING IV Fluids: N/A Implants: MCCANN TUBES BILATERAL Urine Output: NA Drains: NA Specimens: NONE Microbiology: SEROUS/MUCOID FLUID SUCTIONED FROM BOTH MIDDLE EAR SPACES SENT FOR C/S INCLUDING MICRO AND FUNGAL Complications: NONE Condition: FAIR Operative Indication: MENINGITIS, WORSENING MENTAL STATUS AND WORSENING OPACIFICATION NOTED IN MIDDLE EARS AND MASTOID ON CT SCAN Operative/Procedure Note Note: AFTER OBTAINING INFORMED CONSENT FROM VIA TELEPHONE, AND MAKING ARRANGEMENTS WITH ICU STAF AND OR AND ANESTHESIA STAFF, TIME OUT PERFORMED TO CONFIRM PROCEDURE, CORRECT SIDE, AND SPECIMENS ANTICIPATED. SURGICAL PAUSE PERFORMED. MICROSCOPE WAS POSITIONED AND LEFT SIDE WAS FIRST APPROACHED, ANESTHESIA TEAM GAVE MODERATE SEDATION WHICH WORKED VERY WELL, ADN THE EARDRUM WAS VISUALIZED. RADIAL INCISION MADE IN THE ANTERIOR INFERIOR QUADRANT, AND SEROUS/MUCOID FLUID YELLOWISH IN COLOR (NOT PUS) WAS SUCTIONED INTO A LUKEN'S TRAP FOR MICRO AND FUNGAL ANALYSIS. AN MCCANN TUBE WAS THEN PLACED WITHOUT DIFFICULTY. RIGHT SIDE WAS THEN APPROACHED, AND AFTER RADIAL INCISION MADE IN INFERIOR QUADRANT, AND SEROUS FLUID SUCTIONED OUT AND COLLECTED FOR MICROBIOLOGICAL ANALYSIS, AN MCCANN TUBE WAS PLACED. ANTIBIOTIC DROPS NOT AVAILABLE, BUT REQUESTED TO BE ADMINISTERED. SURGICAL DEBRIEF PERFORMED TO CONFIRM PROCEDURE, FINDINGS, AND SPECIMEN COLLECTION AND MICROBIOLOGICAL STUDIES TO BE ORDERED ON THE MIDDLE EAR FLUID. SPONGE NEEDLE AND INSTRUMENT COUNTS ALL CORECT. PATIENT TOLERATED THE PROCEDURE WELL, AND THERE WERE NO COMPLICATIONS. CALLED AT HOME AND NOTIFIED OF OUTCOME AND FINDINGS. Findings: SEROUS/MUCOID FLUID SUCTIONED FROM BOTH MIDDLE EAR SPACES. Discharge Disposition: Critical Care Unit
--- NOTE | 2016-04-03 15:39 | CT SCAN REPORT ---
EXAMINATION: CT HEAD WITH CONTRAST CLINICAL INFORMATION: Presumptive diagnosis of meningitis with strep pneumonia. Altered mental status. Lethargy. COMPARISON: Brain MRI 04/01/2016. TECHNIQUE: Contiguous axial imaging was performed from the skull base to vertex following the administration of 94 mL of Optiray 320 intravenous contrast. DLP: 600.71 mGy-cm FINDINGS: There has been no substantial change when compared to the most recent prior CT scan of the head from 04/01/2016. There is persistent nodular and gyriform cortical enhancement near the vertex. There is little associated vasogenic edema within the adjacent brain. There is no new mass or enhancement. No intracranial mass effect or midline shift. Cage-white matter differentiation is grossly preserved. The calvarium and skull base are intact. Fluid within the mastoid air cells and middle ear cavities remains unchanged. Fluid layering within the fenestrated left maxillary sinus is also stable. Minimal paranasal sinus disease within the frontal sinuses and anterior ethmoid air cells. There is advanced arthrosis of the right submandibular joint. IMPRESSION: Stable examination. The nodular and gyriform cortical enhancement near the vertex remains unchanged. There is relatively little associated vasogenic edema. Although pyogenic meningitis remains a consideration, the relative paucity of associated vasogenic edema is unusual therefore other enhancing diseases such as leptomeningeal metastatic disease, tuberculous meningitis, neurosarcoid, or even subacute enhancing infarcts should be considered. Ideally a brain MRI without and with contrast is recommended for better anatomic characterization of this finding.
[2016-04-03 16:00] VITALS: BP 130/78
--- NOTE | 2016-04-03 16:50 | NUR ---
0800 PT HAD BILATERAL EUSTACHIAN TUBES PLACED BY DR ROSALIA COUCH AT THE BEDSIDE FOR MODERATE SEDATION AND HOUSEHOLD COOK'S FOR ASSISTANCE. PT TOLERATED PROCEDURE WELL. PT REMAINS LETHARGIC, OPENING EYES SPONTANEOUSLY, NO TRACKING, OCCASIONALLY NODDING Y/N. PT NOT FOLLOWING COMMANDS BUT DOES RESPOND TO NOXIOUS STIMULI. PT BROUGHT TO CT FOR A REPEAT HEAD SCAN WITH CONTRAST. PT REMAINS VENTED ON AC 10 450 35% 5 AND TRIALED FOR 1.5 HRS ON PS 6/5. TUBE FEEDS ARE AT GOAL. O RESIDUAL. SIMMONS INSITU W GOOD URINARY OUTPUT 1150/8HRS. NS IVF AT 50ML/HR. ACCUCHECKS Q 6 WITH REGULAR INSULIN COVERAGE. IV ABX STARTED AND PT REMAINS ON KEPPRA AND DEPAKOTE IV.
--- NOTE | 2016-04-03 17:45 | PN- Resident CRCU ---
Subjective HPI/CRCU Issues: Patient in ICU for: Strep pneumo meningitis, intubated. Patient was much more active for me this AM. She spontaneously opened her eyes, but was unable to follow commands. She was more active in that she was trying to pull out her lines and her tubes. This a.m. she is getting ready for bilateral ear tube placement by Dr. Huggins, ENT specialist. Overnight MAXIMUM TEMPERATURE 100.3. We will panculture her, obtain head CT, and follow-up with urology regarding any recommendations. Objective Vital Signs & I&O Last 8 Hrs of Vitals and I&O: Intake & Output 04/03 1600 Intake Total 1080 Output Total 1150 Balance -70 Intake, IV 400 Intake, Other 680 Number 2 Bowel Movements Output, Urine 1150 Exam General Appearance: no apparent distress, intubated Head: atraumatic, normal appearance Ears, Nose, Throat: normal pharynx, normal ENT inspection Neck: supple Respiratory: normal breath sounds, chest non-tender, no respiratory distress Cardiovascular: regular rate/rhythm, systolic murmur Gastrointestinal: soft, non-tender Extremities: normal inspection Weaning Parameters NIF: 47 Minute Volume: 9.12 Resp rate: 20 Vt: 326 Heart Rate: 95 Weaning Schedule Start Time: 1200 Minute Volume: 9.12 Resp Rate: 20 Vt: 326 Heart Rate: 95 End Time: 1334 Minute Volume: 5.58 Resp Rate: 22 Vt: 375 Heart Rate: 97 Start Time: 0950 Minute Volume: 7.99 Resp Rate: 29 Vt: 273 Heart Rate: 88 End Time: 1111 Minute Volume: 6.79 Resp Rate: 24 Vt: 475 Heart Rate: 79 IV Drips IV Drips: tube Feed IVF Nutrition Nutrition: tube feeding Current Medications: Current Medications Sig/Garrick Start time Last Medication Dose Route Stop Time Status Admin Acetaminophen 1,000 MG Q6-PRN PRN 03/17 1630 AC 03/20 N/A 1 UNIT IV 1552 Ceftriaxone Sodium 2,000 MG BID 04/03 1000 AC 04/03 IV 1316 Ciprofloxacin 4 GTT BID 04/03 1000 AC 04/03 OTIC 04/09 2200 1316 Dexamethasone 4 GTT BID 04/03 1000 AC 04/03 OTIC 04/09 220 1316 Heparin Sodium 5,000 UNIT Q8 03/25 1400 AC 04/03 (Porcine) SC 1316 Hydralazine HCl 10 MG Q8 PRN 03/23 1315 AC 03/25 IV 0720 Insulin Human Regular 0 Q6 03/17 1800 AC 04/03 SC 1215 Levetiracetam 1,500 MG Q12H 03/28 0600 AC 04/03 Sodium Chloride 100 ML IV 0549 Levothyroxine Sodium 12.5 MCG DAILY 03/19 1000 AC 04/03 IV 1116 Lorazepam 1 MG Q1P PRN 03/25 1100 AC 03/28 IV 2006 Pantoprazole Sodium 40 MG DAILY 03/18 1000 AC 04/03 IV 1134 Polyethylene Glycol 17 GM DAILY PRN 03/31 1215 AC 04/02 PO 0025 Sodium Chloride 1,000 ML Q20H 04/01 0845 AC 04/03 IV 0102 Valproate Sodium 1,000 MG Q8H 03/28 0200 AC 04/03 Sodium Chloride 100 ML IV 1705 Impression/Plan Impression/Problem List Impression: This is a 70 year old female with PMH of hypotension, hyperlipidemia, hypothyroidism DM who came was brought to hospital after being found unresponsive. She had one day of otalgia and difficulty hearing. Found down and unresponsive, subsequently brought to . In ED was found to have Tmax 102, AMS/ agitation, CT with pneumocephalus in temporal lobe, and opacification of mastoid air cells. Due to concern for bacterial meningitis 2/2 otitis she was admitted to ICU. PLAN Respiratory: Pt was intubated on 03/25/2016; Continues to be intubated but under no sedation. Her respiratory status is stable. She is satting 30 FiO2, Hemodynamically stable, unable to follow any commands. Not ready for extubation. If she remains persistently unable to be extubated plans for trach should be considered * Con't mechanical ventilation--> attempted wean off trial today * Aspiration precautions Neuro/ID: 1. Step Pneumo Meningitis: Patient has strep pneumo meningitis confirmed by CSF culture and blood culture. Finished 4 day course of Decadron. Initial CSF white count was over 20,000 and repeat LP showed white blood cell of only 42. 2x TTEs and one SAMUEL have both been negative for any valvular pathology. Got treated with 14 days of ceftriaxone (stopped on 03/31/2016) and vancomycin intermittently. Vanco given Mar 18 then Mar 25-Mar 28. Note that one culture of her LRC grew staph aureus. negative for MRSA; negative cxr. Today WBC at 8.4. Her mental status is now the primary issue; she seems less rousable. She was more arousable for me today. However she was not AO. She is able to open her eyes spontaneously. From pain. However she did not squeeze my fingers to command. EEG done yesterday showed no epileptiform activity. Today she will have bilateral year tube placement for possible drainage. MAXIMUM TEMPERATURE recorded 100.3. * Restart ceftriaxone * Negative chest x-ray * Repeat CT-head with IV contrast * Negative EEG * Thank you Neuro consult * Thank you ENT consult * Body fluid culture of bilateral year drainage * Panculture 2. New onset Seizures: Patient has new onset seizures which started early a.m. on 03/24/2016. Since then she has had a repeat seizure activity, at least 2 episodes of GTC. The rest seem to be focal, localized to her right arm. EEG about a week ago showed corresponding epileptiform activity in left hemisphere. Pt currently on Keppra and Depakote IV with increased doses. EEG done yesterday negative * Appreciate Neurology consult * Con't Keppra nad Depakote * CT head CVS: Patient has history of diabetes, hypertension. Pt off all pressors. Stable con't monitor. Heme/Onc: Stable. Will con't monitor. Msk: Moving r. side less than left initially. Now she is not moving any limb to command. GI: placed Dobbhoff on 03/20. Con't tube feeds. * RISS * Tube feeds * Protonix Nephro: Pt is having hyponatremia with her Na trending from down the past week: 140--139--134--136--133-> 134 today. She was on D51/2 NS for fluids until 04/01 when her NA was at 133. Now on NS at 50cc . Will con't monitor. * NS at 50cc/hr Con't Synthroid. FULL CODE TUBE FEED CHEM/ALPS DVT PPX Problem List: 1. Meningitis 2. Sepsis 3. Left otitis media 4. Altered mental state 5. Lactic acidosis Pain Ratin Tomorrow's Labs & Rationales: ICU CBC Plan DVT/Prophylaxis: pharmacological
--- NOTE | 2016-04-03 18:29 | PN- Neurology ---
Subjective Subjective: 70 Y o F w/ pneumococcal meningitis, sepsis, otitis media, mastoiditis. Recd Finished 4 day course of Decadron. On keppra 1500 mg every 12 hours & VPA 1000 mg every 8 hours for seizures. Rec's 14 days of IV abx ceftriaxone (stopped on 03/31/2016) and vancomycin intermittently. Initial CSF white count was over 20,000. Down to 42 on repeat LP. 2 TTEs and 1 SAMUEL have both been negative for any valvular pathology. Level of alertness was said to have been improving. However over the past several days she has become more obtunded and again febrile (low grade). EEG done yesterday showed no epileptiform activity. Ceftriax has been restarted Objective Vital Signs and I&Os Vital Signs Date Time Temp Pulse Resp B/P Pulse O2 O2 Flow FiO2 Ox Delivery Rate 04/03 1600 98.1 85 20 130/78 96 Ventilator 30% 04/03 1600 97 Ventilator 30% 04/03 1501 30 04/03 1200 97 Ventilator 30% 04/03 1122 30 04/03 0859 30 04/03 0800 98 Ventilator 30% 04/03 0800 100.3 87 87 122/78 99 Ventilator 30% 04/03 0552 30 04/03 0400 98 Ventilator 30% 04/03 0328 30 04/03 0023 30 / 0000 96 Ventilator 30% 04/03 0000 96.9 72 12 118/70 96 Ventilator 30% 04/02 2216 30 04/02 2053 96 Ventilator 40% 04/02 1925 30 Intake & Output 04/03 1600 04/03 0800 02/ 0000 04/02 1600 04/02 0800 02/ 0000 Intake Total 1080 1295 1290 1305 1295.2 1534.9 Output Total 1523 714 2893 2150 700 950 Balance -70 340 -530 -845 595.2 584.9 Intake, IV 400 635 620 640 641.2 963.9 Intake, Oral 0 0 Intake, Other 680 216 191 Intake, Tube 470 480 475 438 380 Feeding Intake, Tube 190 190 190 Irrigant Number 2 1 1 0 0 Bowel Movements Output, Urine 0452 597 3768 2150 700 950 Patient 185 lb 186 lb Weight Physical Exam: Intubated, opens eyes briefly to voice Face diaphoretic Pupils equal round reactive to light. Extraocular movements full No obvious facial asymmetry Gag reflex present Minimal limb movements with noxious stimuli Relative right-sided weakness Plantar responses flexor on the left and extensor on the right Current Medications: Current Medications Sig/Garrick Start time Last Medication Dose Route Stop Time Status Admin Acetaminophen 1,000 MG Q6-PRN PRN 03/17 1630 AC 03/20 N/A 1 UNIT IV 1552 Ceftriaxone Sodium 2,000 MG BID 04/03 1000 AC 04/03 IV 1316 Ciprofloxacin 4 GTT BID 04/03 1000 AC 04/03 OTIC 04/09 220 1316 Dexamethasone 4 GTT BID 04/03 1000 AC 04/03 OTIC 04/09 2201 1316 Heparin Sodium 5,000 UNIT Q8 03/25 1400 AC 04/03 (Porcine) SC 1316 Hydralazine HCl 10 MG Q8 PRN 03/23 1315 AC 03/25 IV 0720 Insulin Human Regular 0 Q6 03/17 1800 AC 04/03 SC 1807 Levetiracetam 1,500 MG Q12H 03/28 0600 AC 04/03 Sodium Chloride 100 ML IV 1759 Levothyroxine Sodium 12.5 MCG DAILY 03/19 1000 AC 04/03 IV 1116 Lorazepam 1 MG Q1P PRN 03/25 1100 AC 03/28 IV 2006 Pantoprazole Sodium 40 MG DAILY 03/18 1000 AC 04/03 IV 1134 Polyethylene Glycol 17 GM DAILY PRN 03/31 1215 AC 04/02 PO 0025 Sodium Chloride 1,000 ML Q20H 04/01 0845 AC 04/03 IV 1801 Valproate Sodium 1,000 MG Q8H 03/28 0200 AC 04/03 Sodium Chloride 100 ML IV 1705 Results Last 24 Hours of Lab Results: Laboratory Tests 04/03 04/03 04/03 0934 0934 0400 Chemistry Sodium (137 - 145 mmol/L) 137 Potassium (3.5 - 5.1 mmol/L) 4.5 Chloride (98 - 107 mmol/L) 97 L Carbon Dioxide (22 - 30 mmol/L) 34 H Anion Gap (5 - 16) 7 BUN (7 - 17 mg/dL) 14 Creatinine (0.5 - 1.0 mg/dL) 0.6 Estimated GFR (>60 ml/min) > 60 Glucose (65 - 99 mg/dL) 230 H Calcium (8.4 - 10.2 mg/dL) 8.5 Phosphorus (2.5 - 4.5 mg/dL) 3.7 Magnesium (1.6 - 2.3 mg/dL) 1.8 Total Bilirubin (0.2 - 1.3 mg/dL) 0.2 AST (14 - 36 U/L) 18 ALT (9 - 52 U/L) 29 Albumin (3.5 - 5.0 g/dL) 2.3 L Hematology CBC w Diff NO MAN DIFF REQ WBC (4.8 - 10.8 /CUMM) 7.9 RBC (4.20 - 5.40 /CUMM) 3.05 L Hgb (12.0 - 16.0 G/DL) 8.9 L Hct (37 - 47 %) 26.4 L MCV (81.0 - 99.0 FL) 86.4 MCH (27.0 - 31.0 PG) 29.0 RDW (11.5 - 14.5 %) 14.0 Plt Count (130 - 400 /CUMM) 198 MPV (7.4 - 10.4 FL) 10.4 Gran % (42.2 - 75.2 %) 71.7 Lymphocytes % (20.5 - 51.1 %) 14.2 L Monocytes % (1.7 - 9.3 %) 12.6 H Eosinophils % (0 - 5 %) 0.8 Basophils % (0.0 - 2.0 %) 0.7 Absolute Granulocytes (1.4 - 6.5 /CUMM) 5.6 Absolute Lymphocytes (1.2 - 3.4 /CUMM) 1.1 L Absolute Monocytes (0.10 - 0.60 /CUMM) 1.0 H Absolute Eosinophils (0.0 - 0.7 /CUMM) 0.1 Absolute Basophils (0.0 - 0.2 /CUMM) 0.1 PUBS MCHC (33.0 - 37.0 G/DL) 33.6 Other Body Source Fluid WBC Cancelled Cancelled Fld Total RBCs Counted Cancelled Cancelled Recent Imaging Studies: PATIENT: SOLOMON PEREZ PRESENT AGE: 70 PATIENT ACCOUNT NO: [id number] : 45 LOCATION: [facility] ORDERING PHYSICIAN: KAILA GRAJEDA MD SERVICE DATE: 04/03/16- EXAM TYPE: CAT - CT HEAD W IV CONTRAST EXAMINATION: CT HEAD WITH CONTRAST CLINICAL INFORMATION: Presumptive diagnosis of meningitis with strep pneumonia. Altered mental status. Lethargy. COMPARISON: Brain MRI 04/01/2016. (SHOULD READ *HEAD CT* 04-01-16) TECHNIQUE: Contiguous axial imaging was performed from the skull base to vertex following the administration of 94 mL of Optiray 320 intravenous contrast. DLP: 600.71 mGy-cm FINDINGS: There has been no substantial change when compared to the most recent prior CT scan of the head from 04/01/2016. There is persistent nodular and gyriform cortical enhancement near the vertex. There is little associated vasogenic edema within the adjacent brain. There is no new mass or enhancement. No intracranial mass effect or midline shift. Cage-white matter differentiation is grossly preserved. The calvarium and skull base are intact. Fluid within the mastoid air cells and middle ear cavities remains unchanged. Fluid layering within the fenestrated left maxillary sinus is also stable. Minimal paranasal sinus disease within the frontal sinuses and anterior ethmoid air cells. There is advanced arthrosis of the right submandibular joint. IMPRESSION: Stable examination. The nodular and gyriform cortical enhancement near the vertex remains unchanged. There is relatively little associated vasogenic edema. Although pyogenic meningitis remains a consideration, the relative paucity of associated vasogenic edema is unusual therefore other enhancing diseases such as leptomeningeal metastatic disease, tuberculous meningitis, neurosarcoid, or even subacute enhancing infarcts should be considered. Ideally a brain MRI without and with contrast is recommended for better anatomic characterization of this finding. DICTATED BY: JOSHUA IBANEZ MD DATE/TIME DICTATED:04/03/161505 SCHEDULER CONVEYOR:PAUL DATE/TIME TRANSCRIBED:04/03/161505 CONFIDENTIAL, DO NOT COPY WITHOUT APPROPRIATE AUTHORIZATION. <Electronically signed in Other Vendor System> SIGNED BY: JOSHUA IBANEZ MD 04/03 0595 IMPRESSION: 1. There is abnormal enhancement along the subarachnoid spaces in the high bilateral frontoparietal regions, consistent with sequelae of meningitis. A component of cerebritis cannot be excluded. Recommend MRI scan of the brain for further assessment. 2. There has been interval development of opacification of the right mastoid air cells and right middle ear cavity; the changes on the left appear relatively stable. 3. The dural venous sinuses appear to be patent. This could also be further assessed with MRV. 4. There are no large territorial infarcts or bleeds. 5. This critical result was discussed with Fabiola Eller by telephone on 04/01/2016 at 4:26 PM and it was ascertained that the content and urgency of the report was understood at the time of direct communication. DICTATED BY: JOSIE WONG MD DATE/TIME DICTATED:04/01/161599 EEG 2-8: Interpretation: The background is composed of generalized low amplitude beta activity with brief moments of irregular low amplitude alpha frequency activity in the posterior regions. Bifrontal synchronous intermittent rhythmic moderate to high amplitude delta activity "FIRDA" is seen throughout the record. No lateralized, focal or epileptiform abnormalities are noted. activation procedures were deferred, and the recording abrieviated to about 15 minutes as profuse sweating interfered with the scalp electrodes. Impression: Abnormal due to FIRDA which often indicates dysfunction in deep subcortical regions and can be seen in toxic and metabolic encephalopathies. No further focal or epileptiform abnormalities are found. 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 Head CT findings consistent with meningitis with no convincing radiographic appearance of concomitant cerebritis. However clinically, with a hemiparesis and seizures one would infer associated cortical involvement which could be due to cerebritis or vasculitis causing infarcts. Worsened encephalopathy in the setting of fever and presumably persistent infectious process which has been attributed to mastoiditis. Plan: No objection to resumption of IV antibiotics Continue neuro checks Continue current anticonvulsant medication regimen for today, but please check a Depakote level and a serum ammonia. It is possible that the anticonvulsant medications are contributing to her lethargy. Brain MRI when deemed stable enough to proceed with the scan.
--- NOTE | 2016-04-03 23:05 | NUR ---
AVSS. OPEN EYES TO TACTILE STIMULATION.PUPILS REACTIVE. REMAIN VENTILATED AND CPAP TRIALS DONE WITH SATS >95.OGT INTACT AND TF CONT. SIMMONS PATENT WITH GOOD UO. RAISSA EAR GAUZE NOTED AND LEFT GAUZE DRAINING SESA OUTPUT; DR. MIRANDA MADE AWARE.
[2016-04-04] VITALS: BP 110/60
--- NOTE | 2016-04-04 01:01 | NUR ---
PT INTUBATED AT 30% FIO2. SATURATION 96%, LUNGS SOUND CLEAR. MINIMAL WHITE,THICK SECRETIONS NOTED FROM ETT. PT IS NOT AROUSABLE, DOES NOT FOLLOW COMMAND. PUPILS ARE EQUAL 2MM, REACTIVE. ABDOMEN SOFT, NORMOACTIVE BS. HAS SIMMONS,ADEQUATE UO. TOLERATING TF OF GLUCERNA 1.2 AT 60ML/H. NO RESIDUALS OBTAINED.
[2016-04-04 05:20] LABS: ABSOLUTE BASOPHIL COUNT 0 /CUMM (0.0-0.2); ABSOLUTE EOSINOPHIL COUNT 0.1 /CUMM (0.0-0.7); ABSOLUTE LYMPH COUNT 0.9 /CUMM (1.2-3.4); BASOPHIL % 0.7 % (0.0-2.0); EOSINOPHIL % 1.1 % (0-5); GRANULOCYTE % 70.6 % (42.2-75.2); HEMATOCRIT 25.3 % (37-47); MEAN CORPUSCULAR HGB 28.9 PG (27.0-31.0); MEAN CORPUSCULAR VOLUME 87.6 FL (81.0-99.0); MEAN PLATELET VOLUME 9.7 FL (7.4-10.4); PLATELET COUNT 210 /CUMM (130-400); RBC DISTRIBUTION WIDTH 14.4 % (11.5-14.5); RED BLOOD CELL CT 2.89 /CUMM (4.20-5.40)
[2016-04-04 08:00] VITALS: BP 120/70
--- NOTE | 2016-04-04 08:08 | RADIOLOGY REPORT ---
EXAMINATION: XR PORTABLE CHEST CLINICAL INFORMATION: Intubated. COMPARISON: 04/03/2016 TECHNIQUE: Portable AP view of the chest was obtained. FINDINGS: An endotracheal tube terminates approximately 3.3 cm above the eugenio. A feeding tube is again noted, tip not visualized, but extending below the diaphragmatic level. A right-sided PICC is redemonstrated, extending to the superior vena cava. The cardiomediastinal silhouette is stable and appears within normal limits. The lungs appear clear. No progressive consolidation or evidence of developing pulmonary edema or pleural effusion. No evidence of pneumothorax. The spine is not well assessed. Elsewhere there are no acute osseous abnormalities. Small ossific densities project in the region of the left humeral head, suggesting calcific tendinopathy or loose bodies. IMPRESSION: Lines and tubes as above. No radiographic evidence of acute abnormality.
--- NOTE | 2016-04-04 10:32 | PN- CRCU ---
Subjective HPI/Critical Care Issues: The patient is arousable and is opening her eyes. She is following some commands. She still is very lethargic. She is trying to answer questions with yes and no answers. Her MAXIMUM TEMPERATURE over the past 24 hours is 100.3. She is currently afebrile. Her respiratory status remained stable noting that she is on 30% on mechanical ventilation. Last evening, she did not trial well and had to be placed back on assist control. She is now having regular bowel movements. Objective Current Medications: Current Medications Sig/Garrick Start time Last Medication Dose Route Stop Time Status Admin Acetaminophen 1,000 MG Q6-PRN PRN 03/17 1630 AC 03/20 N/A 1 UNIT IV 1552 Ceftriaxone Sodium 2,000 MG BID 04/03 1000 AC 04/03 IV 2106 Ciprofloxacin 4 GTT BID 04/03 1000 AC 04/03 OTIC 04/09 2201 2109 Dexamethasone 4 GTT BID 04/03 1000 AC 04/03 OTIC 04/09 2201 2108 Heparin Sodium 5,000 UNIT Q8 03/25 1400 AC 04/04 (Porcine) SC 0524 Hydralazine HCl 10 MG Q8 PRN 03/23 1315 AC 03/25 IV 0720 Insulin Human Regular 0 Q6 03/17 1800 AC 04/04 SC 0628 Levetiracetam 1,500 MG Q12H 03/28 0600 AC 04/04 Sodium Chloride 100 ML IV 0524 Levothyroxine Sodium 12.5 MCG DAILY 03/19 1000 AC 04/03 IV 1116 Lorazepam 1 MG Q1P PRN 03/25 1100 AC 03/28 IV 2006 Magnesium Sulfate 1 GM ONCE ONE 04/04 0745 AC 04/04 Dextrose/Water 100 ML IV 04/04 1144 0757 Pantoprazole Sodium 40 MG DAILY 03/18 1000 AC 04/03 IV 1134 Polyethylene Glycol 17 GM DAILY PRN 03/31 1215 AC 04/02 PO 0025 Sodium Chloride 1,000 ML Q20H 04/01 0845 AC 04/03 IV 1801 Valproate Sodium 1,000 MG Q8H 03/28 0200 AC 04/04 Sodium Chloride 100 ML IV 0154 Vital Signs & I&O Last 24 Hrs of Vitals and I&O: Vital Signs Date Time Temp Pulse Resp B/P Pulse O2 O2 Flow FiO2 Ox Delivery Rate 04/04 0852 30 04/04 0626 30 04/04 0400 97 Ventilator 30% 04/04 0320 30 04/04 0035 30 04/04 0000 95 Ventilator 30% 04/04 0000 97.7 77 11 110/60 96 Ventilator 30% 04/03 2214 30 04/03 2000 94 Ventilator 40% 04/03 1915 30 04/03 1615 30 04/03 1600 98.1 85 20 130/78 96 Ventilator 30% 04/03 1600 97 Ventilator 30% 04/03 1501 30 04/03 1200 97 Ventilator 30% 04/03 1122 30 Intake & Output 04/04 1600 04/04 0800 04/04 0000 Intake Total 1290 995 Output Total 540 1050 Balance 750 -55 Intake, IV 600 600 Intake, Tube 500 300 Feeding Intake, Tube 190 95 Irrigant Output, Urine 540 1050 Exam General Appearance: lethargic, intubated, appears chronically ill Head: atraumatic, normal appearance, lower lip appears black and scabbed over Neck: normal inspection, supple Respiratory: no respiratory distress, a few scattered rhonchi are heard Cardiovascular: regular rate/rhythm Abdomen: normal bowel sounds, soft, non-tender Extremities: no edema Skin: intact, normal color, warm/dry Results Last 24 Hrs of Lab Results: Laboratory Tests 04/04/16 0358: Anion Gap 7, Estimated GFR > 60, Glucose 172 H, Calcium 8.3 L, Phosphorus 3.8, Magnesium 1.7, Total Bilirubin 0.2, AST 17, ALT 28, Ammonia 19, Albumin 2.1 L, CBC w Diff NO MAN DIFF REQ, RBC 2.89 L, MCV 87.6, MCH 28.9, RDW 14.4, MPV 9.7, Gran % 70.6, Lymphocytes % 13.3 L, Monocytes % 14.3 H, Eosinophils % 1.1, Basophils % 0.7, Absolute Granulocytes 5.0, Absolute Lymphocytes 0.9 L, Absolute Monocytes 1.0 H, Absolute Eosinophils 0.1, Absolute Basophils 0, PUBS MCHC 33.0 Last 24 Hrs of Micro Results: Gram-negative rods and staph aureus from lower respiratory culture, GPC's from left and right ear fluid culture. Diagnostic Data CXR Findings: Lines and tubes as above. No radiographic evidence of acute abnormality. Impression/Plan Impression/Plan Impression/Plan: 1. Ongoing encephalopathy, now with evidence of cerebritis and mastoiditis, no seizures seen on EEG, results consistent with a toxic/metabolic encephalopathy. 2. Pneumococcal meningitis. ? Significance of GPC's in bilateral air-fluid collections. 3. Respiratory failure secondary to ventilatory failure - day 11 mechanical ventilation. Lower respiratory culture growing gram-negative rods and staph aureus. Chest x-ray has no evidence of infiltrates in the patient's oxygenation has been stable. 4. Malnutrition. 5. Systolic murmur without evidence of endocarditis on TTE and SAMUEL. Recommendations: * Will continue weaning trials. * Again, will need to consider trach placement if patient's mental status does not improve. * Follow up ID and neuro input. * Continue ceftriaxone. * Continue to follow antiseizure regimen as per neurology. * Continue tubes feeds at goal. * Continue DVT and GI prophylaxis. * Continue all supportive care for now.
--- NOTE | 2016-04-04 11:49 | PN- Infect Dx ---
See Addendum Subjective Subjective: MAXIMUM TEMPERATURE 100.3 with no further fevers since yesterday morning. Recent events noted with bilateral myringotomies and tympanostomy tube placements yesterday, with serous/mucoid fluid obtained. She has been more responsive over the last several days, with no further seizure activity reported. Objective Last 24 Hrs of Vital Signs/I&O Vital Signs Date Time Temp Pulse Resp B/P Pulse O2 O2 Flow FiO2 Ox Delivery Rate 04/04 0852 30 04/04 0626 30 04/04 0400 97 Ventilator 30% 04/04 0320 30 04/04 0035 30 04/04 0000 95 Ventilator 30% 04/04 0000 97.7 77 11 110/60 96 Ventilator 30% 04/03 2214 30 04/03 2000 94 Ventilator 40% 04/03 1915 30 04/03 1615 30 04/03 1600 98.1 85 20 130/78 96 Ventilator 30% 04/03 1600 97 Ventilator 30% 04/03 1501 30 04/03 1200 97 Ventilator 30% Intake & Output 04/04 1600 04/04 0800 04/04 0000 Intake Total 1290 995 Output Total 540 1050 Balance 750 -55 Intake, IV 600 600 Intake, Tube 500 300 Feeding Intake, Tube 190 95 Irrigant Output, Urine 540 1050 Physical Exam Other Physical Findings: She does open her eyes to her name and responds appropriately to questions Lungs are clear Heart regular rhythm with no change in her 3/6 holosystolic murmur Abdomen is soft, nontender with positive bowel sounds Extremities trace edema both lower extremities; PICC in the right upper extremity with no inflammation at the site Neuro decreased tone in the right upper extremity Dominguez catheter remains in place Results Last 24 Hours of Lab Results: Laboratory Tests 04/04 0358 Chemistry Sodium (137 - 145 mmol/L) 138 Potassium (3.5 - 5.1 mmol/L) 4.3 Chloride (98 - 107 mmol/L) 99 Carbon Dioxide (22 - 30 mmol/L) 32 H Anion Gap (5 - 16) 7 BUN (7 - 17 mg/dL) 13 Creatinine (0.5 - 1.0 mg/dL) 0.5 Estimated GFR (>60 ml/min) > 60 Glucose (65 - 99 mg/dL) 172 H Calcium (8.4 - 10.2 mg/dL) 8.3 L Phosphorus (2.5 - 4.5 mg/dL) 3.8 Magnesium (1.6 - 2.3 mg/dL) 1.7 Total Bilirubin (0.2 - 1.3 mg/dL) 0.2 AST (14 - 36 U/L) 17 ALT (9 - 52 U/L) 28 Ammonia (9 - 30 umol/L) 19 Albumin (3.5 - 5.0 g/dL) 2.1 L Hematology CBC w Diff NO MAN DIFF REQ WBC (4.8 - 10.8 /CUMM) 7.0 RBC (4.20 - 5.40 /CUMM) 2.89 L Hgb (12.0 - 16.0 G/DL) 8.4 L Hct (37 - 47 %) 25.3 L MCV (81.0 - 99.0 FL) 87.6 MCH (27.0 - 31.0 PG) 28.9 RDW (11.5 - 14.5 %) 14.4 Plt Count (130 - 400 /CUMM) 210 MPV (7.4 - 10.4 FL) 9.7 Gran % (42.2 - 75.2 %) 70.6 Lymphocytes % (20.5 - 51.1 %) 13.3 L Monocytes % (1.7 - 9.3 %) 14.3 H Eosinophils % (0 - 5 %) 1.1 Basophils % (0.0 - 2.0 %) 0.7 Absolute Granulocytes (1.4 - 6.5 /CUMM) 5.0 Absolute Lymphocytes (1.2 - 3.4 /CUMM) 0.9 L Absolute Monocytes (0.10 - 0.60 /CUMM) 1.0 H Absolute Eosinophils (0.0 - 0.7 /CUMM) 0.1 Absolute Basophils (0.0 - 0.2 /CUMM) 0 PUBS MCHC (33.0 - 37.0 G/DL) 33.0 Last 24 Hours of [place] Results: Right ear and left ear fluid April 03 positive for light growth of coag- negative Staph Sputum culture April 03 positive for Staph aureus and non-lactose fermenting gram-negative rods Urine culture April 03 negative Blood cultures 2 April 03 negative Recent Imaging Studies: Chest x-ray April [address] of the head with IV contrast April 03 reviewed with the neuroradiologist reveals persistent nodular and gyriform cortical enhancement near the vertex; no intracranial mass or mass effect; mild hydrocephalus; some abnormality of the sigmoid sinus of unclear significance; opacification of the right and left mastoids unchanged; relative paucity of associated vasogenic edema EEG April 02 no lateralized, focal or epileptiform abnormalities noted; FIRDA seen throughout the recording Assessment/Plan Impression: She is more responsive over the last few days though this appears to be waxing and waning, suggesting the possibility of an ongoing process in the brain. The recent CT findings are as noted above, and it is not clear if any of these findings can explain her mental status. Her repeat EEG does reveal FIRDA, which apparently can indicate dysfunction in the deep subcortical regions. Have discussed these findings with Neurology who will reevaluate her. MRI would clearly be helpful, particularly in evaluating the brain parenchyma, but would require transfer to [place]. She was restarted on Ceftriaxone yesterday after discussion with mn based on her CT findings of mastoiditis, now involving the right side as well as the left side, status post bilateral myringotomies and tympanostomy tubes by ENT yesterday, with ear cultures growing what appears to be coag-negative Staph which likely represents skin contamination. The positive sputum culture likely represents colonization and, with her stable respiratory status and negative chest x-ray, do not feel this requires treatment. Suggestion: 1. Neurology follow-up 2. Would consider transfer to [place] for MRI 3. Repeat CT of the head with IV contrast in several days if she remains at [place] 4. Follow-up recent cultures 5. Continue Ceftriaxone 2 g IV every 12 hours Radha Everett MD will be covering me until April 14
--- NOTE | 2016-04-04 12:42 | PN- Resident CRCU ---
Subjective HPI/CRCU Issues: Pt in ICU for: strep pneumo meningitis Pt is better this AM. She spontaneously opened her eyes, weakly squeezed my fingers on command. Vitals stable, still intubated. She has tube feeds and IVF 50cc. No acute overnight events. Objective Vital Signs & I&O Last 8 Hrs of Vitals and I&O: Laboratory Tests 04/04 0358 Chemistry Sodium (137 - 145 mmol/L) 138 Potassium (3.5 - 5.1 mmol/L) 4.3 Chloride (98 - 107 mmol/L) 99 Carbon Dioxide (22 - 30 mmol/L) 32 H Anion Gap (5 - 16) 7 BUN (7 - 17 mg/dL) 13 Creatinine (0.5 - 1.0 mg/dL) 0.5 Estimated GFR (>60 ml/min) > 60 Glucose (65 - 99 mg/dL) 172 H Calcium (8.4 - 10.2 mg/dL) 8.3 L Phosphorus (2.5 - 4.5 mg/dL) 3.8 Magnesium (1.6 - 2.3 mg/dL) 1.7 Total Bilirubin (0.2 - 1.3 mg/dL) 0.2 AST (14 - 36 U/L) 17 ALT (9 - 52 U/L) 28 Ammonia (9 - 30 umol/L) 19 Albumin (3.5 - 5.0 g/dL) 2.1 L Hematology CBC w Diff NO MAN DIFF REQ WBC (4.8 - 10.8 /CUMM) 7.0 RBC (4.20 - 5.40 /CUMM) 2.89 L Hgb (12.0 - 16.0 G/DL) 8.4 L Hct (37 - 47 %) 25.3 L MCV (81.0 - 99.0 FL) 87.6 MCH (27.0 - 31.0 PG) 28.9 RDW (11.5 - 14.5 %) 14.4 Plt Count (130 - 400 /CUMM) 210 MPV (7.4 - 10.4 FL) 9.7 Gran % (42.2 - 75.2 %) 70.6 Lymphocytes % (20.5 - 51.1 %) 13.3 L Monocytes % (1.7 - 9.3 %) 14.3 H Eosinophils % (0 - 5 %) 1.1 Basophils % (0.0 - 2.0 %) 0.7 Absolute Granulocytes (1.4 - 6.5 /CUMM) 5.0 Absolute Lymphocytes (1.2 - 3.4 /CUMM) 0.9 L Absolute Monocytes (0.10 - 0.60 /CUMM) 1.0 H Absolute Eosinophils (0.0 - 0.7 /CUMM) 0.1 Absolute Basophils (0.0 - 0.2 /CUMM) 0 PUBS MCHC (33.0 - 37.0 G/DL) 33.0 Exam General Appearance: no apparent distress, intubated Head: atraumatic, normal appearance Ears, Nose, Throat: lower lip still erytehmatous and almost ulcerated. Neck: supple Respiratory: normal breath sounds, chest non-tender Cardiovascular: regular rate/rhythm, murmur Gastrointestinal: soft Extremities: normal inspection Weaning Parameters NIF: 31 Minute Volume: 8.36 Resp rate: 18 Vt: 355 Heart Rate: 98 Weaning Schedule Start Time: 0900 Minute Volume: 8.36 Resp Rate: 18 Vt: 355 Heart Rate: 98 End Time: 0908 Minute Volume: 10.3 Resp Rate: 35 Vt: 245 Heart Rate: 88 Start Time: 0950 Minute Volume: 7.99 Resp Rate: 29 Vt: 273 Heart Rate: 88 End Time: 1111 Minute Volume: 6.79 Resp Rate: 24 Vt: 475 Heart Rate: 79 IV Drips IV Drips: IVF 50 CC Nutrition Nutrition: tube feeding Current Medications: Current Medications Sig/Garrick Start time Last Medication Dose Route Stop Time Status Admin Acetaminophen 1,000 MG Q6-PRN PRN 03/17 1630 AC 03/20 N/A 1 UNIT IV 1552 Ceftriaxone Sodium 2,000 MG BID 04/03 1000 AC 04/04 IV 1042 Ciprofloxacin 4 GTT BID 04/03 1000 AC 04/04 OTIC 04/09 220 1043 Dexamethasone 4 GTT BID 04/03 1000 AC 04/04 OTIC 04/09 220 1042 Heparin Sodium 5,000 UNIT Q8 03/25 1400 AC 04/04 (Porcine) SC 0524 Hydralazine HCl 10 MG Q8 PRN 03/23 1315 AC 03/25 IV 0720 Insulin Human Regular 0 Q6 03/17 1800 AC 04/04 SC 0628 Levetiracetam 1,500 MG Q12H 03/28 0600 AC 04/04 Sodium Chloride 100 ML IV 0524 Levothyroxine Sodium 12.5 MCG DAILY 03/19 1000 AC 04/04 IV 1044 Lorazepam 1 MG Q1P PRN 03/25 1100 AC 03/28 IV 2006 Magnesium Sulfate 1 GM ONCE ONE 04/04 0745 DC 04/04 Dextrose/Water 100 ML IV 04/04 1144 0757 Pantoprazole Sodium 40 MG DAILY 03/18 1000 AC 04/04 IV 1042 Polyethylene Glycol 17 GM DAILY PRN 03/31 1215 AC 04/02 PO 0025 Sodium Chloride 1,000 ML Q20H 04/01 0845 AC 04/03 IV 1801 Valproate Sodium 1,000 MG Q8H 03/28 0200 AC 04/04 Sodium Chloride 100 ML IV 1051 Impression/Plan Impression/Problem List Impression: This is a 70 year old female with PMH of hypotension, hyperlipidemia, hypothyroidism DM who came was brought to hospital after being found unresponsive. She had one day of otalgia and difficulty hearing. Found down and unresponsive, subsequently brought to . In ED was found to have Tmax 102, AMS/ agitation, CT with pneumocephalus in temporal lobe, and opacification of mastoid air cells. Due to concern for bacterial meningitis 2/2 otitis she was admitted to ICU. PLAN Respiratory: Pt was intubated on 03/25/2016; Continues to be intubated but under no sedation. Her respiratory status is stable. She is satting 30 FiO2, Hemodynamically stable, unable to follow any commands. Not ready for extubation. If she remains persistently unable to be extubated plans for trach and PEG early next week. * Con't mechanical ventilation--> attempted wean off trial today * Aspiration precautions Neuro/ID: 1. Step Pneumo Meningitis: Patient has strep pneumo meningitis confirmed by CSF culture and blood culture. Finished 4 day course of Decadron. Initial CSF white count was over 20,000 and repeat LP showed white blood cell of only 42. 2x TTEs and one SAMUEL have both been negative for any valvular pathology. Got treated with 14 days of ceftriaxone (stopped on 03/31/2016) and vancomycin intermittently. Vanco given Mar 18- then Mar 25-Mar 28. Note that one culture of her LRC grew staph aureus. negative for MRSA; negative cxr. Her mental status is now the primary issue; she seems better today than yesterday as she is following simple commands. EEG done, showed no overt epileptiform activity. On 04/13/2016 she had bilateral ear tube placement to address a bilateral mastoid opacification seen on CT. Fluid from drainage was serous and is now growing coag negative staph. MAXIMUM TEMPERATURE recorded 100.3. on 04/03/2016; over night afebrile. * Restart ceftriaxone at 2mg q12 * Negative chest x-ray * Repeat CT-head with IV contrast on 04/03 showed no change. On speaking with neuroradiologist there seems to be possibility of a communicating hydrocephalus and she does have some meningeal inflammation. * Negative EEG * Thank you Neuro consult * Thank you ENT consult * Body fluid culture of bilateral year drainage * Panculture * f/U Neuro recs 2. New onset Seizures: Patient has new onset seizures which started early a.m. on 03/24/2016. Since then she has had a repeat seizure activity, at least 2 episodes of GTC. The rest seem to be focal, localized to her right arm. EEG about a week ago showed corresponding epileptiform activity in left hemisphere. Pt currently on Keppra and Depakote IV with increased doses. EEG done yesterday negative * Appreciate Neurology consult * Con't Keppra nad Depakote * CT head CVS: Patient has history of diabetes, hypertension. Pt off all pressors. Stable con't monitor. Heme/Onc: Stable. Will con't monitor. Msk: Moving r. side less than left initially. Now she is not moving any limb to command. GI: placed Dobbhoff on 03/20. Con't tube feeds. * RISS * Tube feeds * Protonix Con't Synthroid. FULL CODE TUBE FEED CHEM/ALPS DVT PPX Problem List: 1. Meningitis 2. Sepsis 3. Left otitis media 4. Altered mental state 5. Lactic acidosis Pain Ratin Tomorrow's Labs & Rationales: icu cbc Plan DVT/Prophylaxis: pharmacological
--- NOTE | 2016-04-04 14:15 | PN- Neurology ---
Subjective Subjective: Followup altered mental status. Case discussed at length with Dr. Cleveland Review of Systems: unobtainable Objective Vital Signs and I&Os Vital Signs Date Time Temp Pulse Resp B/P Pulse O2 O2 Flow FiO2 Ox Delivery Rate 04/04 1200 95 Ventilator 30% 04/04 1148 30 04/04 0852 30 04/04 0800 97 Ventilator 30% 04/04 0800 97.6 92 15 120/70 95 Ventilator 30% 04/04 0626 30 04/04 0400 97 Ventilator 30% 04/04 0320 30 04/04 0035 30 04/04 0000 95 Ventilator 30% 04/04 0000 97.7 77 11 110/60 96 Ventilator 30% 04/03 2214 30 04/03 2000 94 Ventilator 40% 04/03 1915 30 04/03 1615 30 04/03 1600 98.1 85 20 130/78 96 Ventilator 30% 04/03 1600 97 Ventilator 30% 04/03 1501 30 Intake & Output 04/04 1600 04/04 0800 04/04 0000 04/03 1600 04/03 0800 04/03 0000 Intake Total 4490 534 6990 1295 1290 Output Total 540 1050 4200 291 1627 Balance 750 -55 -70 340 -530 Intake, IV 600 600 400 635 620 Intake, Other 680 Intake, Tube 500 300 470 480 Feeding Intake, Tube 190 95 190 190 Irrigant Number 2 1 Bowel Movements Output, Urine 540 1050 0228 825 9726 Patient 185 lb Weight Obtunded. No appropriate response to simple command Grimaces to noxious stim Pupils equal corneals present Bilat Babinski signs Current Medications: Current Medications Sig/Garrick Start time Last Medication Dose Route Stop Time Status Admin Acetaminophen 1,000 MG Q6-PRN PRN 03/17 1630 AC 03/20 N/A 1 UNIT IV 1552 Ceftriaxone Sodium 2,000 MG BID 04/03 1000 AC 04/04 IV 1042 Ciprofloxacin 4 GTT BID 04/03 1000 AC 04/04 OTIC 04/09 220 1043 Dexamethasone 4 GTT BID 04/03 1000 AC 04/04 OTIC 04/09 220 1042 Heparin Sodium 5,000 UNIT Q8 03/25 1400 AC 04/04 (Porcine) SC 1310 Hydralazine HCl 10 MG Q8 PRN 03/23 1315 AC 03/25 IV 0720 Insulin Human Regular 0 Q6 03/17 1800 AC 04/04 SC 1310 Levetiracetam 1,500 MG Q12H 03/28 0600 AC 04/04 Sodium Chloride 100 ML IV 0524 Levothyroxine Sodium 12.5 MCG DAILY 03/19 1000 AC 04/04 IV 1044 Lorazepam 1 MG Q1P PRN 03/25 1100 AC 03/28 IV 2006 Magnesium Sulfate 1 GM ONCE ONE 04/04 0745 DC 04/04 Dextrose/Water 100 ML IV 04/04 1144 0757 Pantoprazole Sodium 40 MG DAILY 03/18 1000 AC 04/04 IV 1042 Polyethylene Glycol 17 GM DAILY PRN 03/31 1215 AC 04/02 PO 0025 Sodium Chloride 1,000 ML Q20H 04/01 0845 AC 04/03 IV 1801 Valproate Sodium 1,000 MG Q8H 03/28 0200 AC 04/04 Sodium Chloride 100 ML IV 1051 Assessment/Plan Assessment: Altered mental status in setting of recent meningitis/ cerebritis. Exam grossly non-focal. Recent f/u CT stable without focal collection, significant mass effect or hydrocephalus. Depakote level therapeutic. Remains on antibiotic although now afebrile and without leukocytosis. CSF has been normalizing reflecting response to antibiotics. 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 Would recommend a third lumbar puncture, now 11 days since prior. Continue support and current rx. Defer to ID re. ongoing antibiotics Plan: As above
[2016-04-04 16:00] VITALS: BP 122/60
--- NOTE | 2016-04-04 16:52 | RADIOLOGY REPORT ---
EXAMINATION: XR PORTABLE CHEST CLINICAL INFORMATION: Intubated. Check placement of tube. COMPARISON: 04/04/2016 TECHNIQUE: Portable AP view of the chest was obtained. FINDINGS: An endotracheal tube terminates 2.5 cm above the eugenio. A feeding tube tip and side-port extend below the diaphragmatic level, its tip extends below the image. A right-sided PICC appears to extend into the superior vena cava. No additional lines or tubes appear to been placed in the interval. The cardiomediastinal silhouette is stable. The lung volumes are low. There appears to be mild blunting of the left costophrenic angle. No consolidation or pulmonary edema. No pneumothorax. There is a mild dextroconvex scoliosis and multilevel spondylosis without acute osseous abnormality. IMPRESSION: Lines and tubes as above. Minor blunting of the left costophrenic angle.
--- NOTE | 2016-04-04 18:18 | Proc Note Internal Medicine ---
Medicine Procedure Procedure Date: 04/04/16 Medical Procedure(s): lumbar puncture Pre-Operative Diagnosis: Bacterial Meningitis Post-Operative Diagnosis: same Estimated Blood Loss: scant Anesthesia: local monitored anesthesi Procedure Findings: Procedure - Lumbar Puncture Indication - meningitis Anesthesia - local 1% lidocaine Informed consent was obtained from the patient's over the phone and the proper documentation signed. The patient was positioned in the left lateral decubitus position and the area was prepped and draped in the usual sterile fashion. Using landmarks, a 22 guage spinal needle was inserted in the L4-L5 innerspace. The stylet was removed. The opening pressure was measured to be 13mmHg. Clear fluid slowly was collected in 4 sterile tubes labeled 1 through 4. Approximately 1 - 2cc of clear fluid was collected per bottle. The fluid was walked down to the lab and sent for routine studies including cell count, protein, glucose and culture. The patient tolerated the procedure well. There was no blood loss or hematoma. The procedure was entirely supervised by Dr. Treviño.
--- NOTE | 2016-04-04 19:00 | NUR ---
LUMBAR PUNCTURE DONE AT BEDSIDE BY DR PENALOZA. APPROX 1600. CONSENT OBTAINED, TIME OUT PERFORMED, PT VSS. MSO4 1MG AND ATIVAN 1MG GIVEN PRIOR TO PROCEDURE FOR PAIN AND SEDATION. PT STARTED TO MOVE DURING PROCEDURE AND STARTED ON PROPOFOL, TURMED OFF AT END OF PROCEDURE. SINCE, PT BP HAS BEEN 70-90'S AND HR DEC TO 60'S, U.O DEC TO 10 ML/HR. THESES FINDINGS WERE DISCUSSED W DR PENALOZA, SINCE PT HAS COMPLETED A 500ML NS BOLUS AND STARTED A 1OOOML BOLUS. HAND OFF REPORT TO NEXT RN.
--- NOTE | 2016-04-04 23:30 | Event Note ---
Event Note Event Note: Since approximately 1630, Mrs. Leslie's blood pressure has been slowly declining to the high 70s - mid 80s systolically, with her heart rate ranging in the 60s. Her respiratory rate remained pretty stable as she is intubated/ ventilated. It was noted that we did dose her with 1mg of morphine right before getting her LP. As her blood pressure was slowly dropping, it was decided that we would fluid resuscitate with 500cc of NS bolus, followowed by 1000cc and another 1000cc. She remained refractory to the fluids and as a result it was decided to give 0.4 of naloxone as she had recieved the morphine. Within a few minutes, her blood pressure responded nicely to 119/62 and HR to the 70s.
[2016-04-05] VITALS: BP 96/54
--- NOTE | 2016-04-05 01:09 | NUR ---
SINCE RECEIVING 1 LITER BOLUS SBP 90'S, BUT AFTER AN HOUR BEGAN TO DROP TO 70'S AND 80'S, HR NSR LOW 60'S. PT WAS GIVEN ANOTHER 1LNS BOLUS AROUND 2200 AND SBP BACK TO 90'S BUT AGAIN DROPPED BACK DOWN TO 70'S. NARCAN 0.4 WAS ATTEMPTED SINCE PT RECEIVED NARCATICS EARLIER DURING LP PROCEDURE. PT HR CAME UP TO 70'S AND SBP 119 AND PT BEGAN TO COUGH FREQUENTLY. SBP AND HR REMAINED STABLE FOR ONE HOUR THEN SBP BACK DOWN TO 70'S, SECOND DOSE OF NARCAN GIVEN WITHOUT EFFECT, SBP REMAINS IN LOW 70'S MD YOUNGBLOOD AND PETRA NOTIFIED, PER MD'S GIVE 500ML BOLUS. PT REMAINS LETHARGIC MINIMALLY RESPONDING PAINFUL STIMULI, PUPILS EQUAL AND REACTIVE.
--- NOTE | 2016-04-05 02:07 | NUR ---
AFTER 500ML NS BOLUS PT BP 92/54 NOTIFIED MD YOUNGBLOOD AND PETRA NO FURTHER ORDERS AT THIS TIME.
[2016-04-05 03:53] LABS: ABSOLUTE BASOPHIL COUNT 0 /CUMM (0.0-0.2); ABSOLUTE EOSINOPHIL COUNT 0.1 /CUMM (0.0-0.7); ABSOLUTE GRANULOCYTE CT 5.5 /CUMM (1.4-6.5); ABSOLUTE LYMPH COUNT 1.2 /CUMM (1.2-3.4); BASOPHIL % 0.4 % (0.0-2.0); EOSINOPHIL % 1.3 % (0-5); GRANULOCYTE % 70.1 % (42.2-75.2); HEMATOCRIT 22.1 % (37-47); MEAN CORPUSCULAR HGB 28.6 PG (27.0-31.0); MEAN CORPUSCULAR HGB CONC 32.9 G/DL (33.0-37.0); MEAN CORPUSCULAR VOLUME 86.9 FL (81.0-99.0); MEAN PLATELET VOLUME 8.6 FL (7.4-10.4); PLATELET COUNT 200 /CUMM (130-400); RBC DISTRIBUTION WIDTH 14.3 % (11.5-14.5); RED BLOOD CELL CT 2.55 /CUMM (4.20-5.40); WHITE BLOOD CELL COUNT 7.8 /CUMM (4.8-10.8)
--- NOTE | 2016-04-05 04:43 | Event Note ---
See Addendum Event Note Event Note: Patient has been persistantly hypotensive and AM lab shows a drop of Hb/hct from 8.4/25.3 to 7.3/22.1. Doesn't appear dilutional. No obvious source of bleeding/ hematoma, patient's stool color has been brown per nursing staff, and she has IV Protonix in daily meds. -Blood type and screen order placed -Guiac all stool for now. First turned negative. -Transfuse one unit of PRBC with target hct>25 for now -Held the AM dose of SQ Heparin as there is a significant drop of h/h currently. -Will keep trending her BP, of which, SBP has been running between 100-88 through the night. -Plan to search for source of blood loss, GI consult if stool Guiac positive. -Plan discussed with resident Dr Dunlap, and carried out. Update: 0508 Until PRBC is available, giving her 500ml of bolus IV once, to see if this can increase the BP and urine output. She has trace pedal edema b/l and her lung sounds dry, i.e. no signs of fluid overload currently. -Plan to increase her basal infusion rate otherwise, which is running at 50ml/ min. Dr Dunlap also discussed the plan with attending ophthalmic tech to maintain her then BP>94/54.
--- NOTE | 2016-04-05 06:52 | NUR ---
AT 0400 PT BP DROPPED TO 88/58, AM BLOOD WORK DRAWN CBC 7.3/22.1 NOTIFIED MD ROSA MARIA YOUNGBLOOD #[id number], 500ML NS BOLUS ORDERED, TYPEN AND SCREEN DRAWN AND 1 UNIT PRBC DRAWN.
--- NOTE | 2016-04-05 06:54 | NUR ---
1 UNIT PRBC STARTED WITH NO REACTIONS NOTED AT THIS TIME. BP AT THIS TIME 92/53. PT URINE OUTPUT OVERNIGHT 225ML, NOTIFIED MD YOUNGBLOOD AND PETRA.
--- NOTE | 2016-04-05 07:30 | RADIOLOGY REPORT ---
EXAMINATION: XR PORTABLE CHEST CLINICAL INFORMATION: Intubated. Check tube position. COMPARISON: April 04, 2016 and studies dating back to March 17, 2016. TECHNIQUE: Portable AP view of the chest was obtained. FINDINGS: Endotracheal tube is seen with tip approximately 1.5 cm above the eugenio. There are small lung volumes with left base disease most likely related to atelectasis and possibly small pleural effusion. The cardiopericardial silhouette is upper limits of normal in size. No evidence of pulmonary edema. Nasogastric tube is seen traversing toward the stomach with tip not being identified on this underpenetrated study. Right upper extremity PICC line in place with tip not being visualized due to underpenetration. No pneumothorax. IMPRESSION: Endotracheal tube tip approximately 1.5 cm above the eugenio. Small lung volumes with left base atelectasis.
[2016-04-05 08:00] VITALS: BP 117/66
--- NOTE | 2016-04-05 09:14 | PN- CRCU ---
Subjective HPI/Critical Care Issues: The patient remains minimally responsive. Her mental status continues to wax and wane. Overnight, the patient was noted to be hypotensive. This responded to Narcan noting she had received low-dose morphine for the lumbar puncture. She also had a dip in her urine output and has required IV fluids. This morning , the patient's H&H has dropped significantly. There is no report of bleeding. Objective Current Medications: Current Medications Sig/Garrick Start time Last Medication Dose Route Stop Time Status Admin Acetaminophen 1,000 MG Q6-PRN PRN 03/17 1630 AC 03/20 N/A 1 UNIT IV 1552 Ceftriaxone Sodium 2,000 MG BID 04/03 1000 AC 04/04 IV 2147 Ciprofloxacin 4 GTT BID 04/03 1000 AC 04/04 OTIC 04/09 220 214 Dexamethasone 4 GTT BID 04/03 1000 AC 04/04 OTIC 04/09 220 2145 Heparin Sodium 5,000 UNIT Q8 03/25 1400 AC 04/04 (Porcine) SC 2146 Hydralazine HCl 10 MG Q8 PRN 03/23 1315 AC 03/25 IV 0720 Insulin Human Regular 0 Q6 03/17 1800 AC 04/05 SC 0513 Levetiracetam 1,500 MG Q12H 03/28 0600 AC 04/05 Sodium Chloride 100 ML IV 0541 Levothyroxine Sodium 12.5 MCG DAILY 03/19 1000 AC 04/04 IV 1044 Lorazepam 1 MG ONE ONE 04/04 1800 DC 04/04 IV 04/04 1801 1545 Lorazepam 1 MG Q1P PRN 03/25 1100 AC 03/28 IV 2006 Magnesium Sulfate 1 GM ONCE ONE 04/04 0745 DC 04/04 Dextrose/Water 100 ML IV 04/04 1144 0757 Morphine Sulfate 1 MG ONCE ONE 04/04 1800 DC 04/04 IV 04/04 1801 1545 Naloxone HCl 0.4 MG ONCE ONE 04/05 0045 DC 04/05 IV 04/05 0046 0046 Naloxone HCl 0.4 MG ONCE ONE 04/04 2315 DC 04/04 IV 04/04 2316 2320 Non-Formulary 0 SEE ADMIN CRITERIA 04/04 1815 DC Medication ANY Norepinephrine 4 MG ONCE ONE 04/05 0730 AC 04/05 Sodium Chloride 250 ML IV 04/15 1729 0737 Pantoprazole Sodium 40 MG DAILY 03/18 1000 AC 04/04 IV 1042 Polyethylene Glycol 17 GM DAILY PRN 03/31 1215 AC 04/02 PO 0025 Propofol 1,000 MG ONE 04/04 1815 DC 04/04 N/A 100 ML IV 04/04 1999 1600 Propofol 1,000 MG .STK-MED ONE 04/04 1543 DC IV 04/04 1544 Sodium Chloride 500 ML BOLUS ONE 04/05 0515 DC 04/05 IV 04/05 0614 0508 Sodium Chloride 500 ML BOLUS ONE 04/05 0115 DC 04/05 IV 04/05 0214 0106 Sodium Chloride 1,000 ML BOLUS ONE 04/04 2145 DC 04/04 IV 04/04 2244 2147 Sodium Chloride 1,000 ML BOLUS ONE 04/04 1900 DC 04/04 IV 04/04 1959 1900 Sodium Chloride 500 ML BOLUS ONE 04/04 1800 DC 04/04 IV 04/04 1859 1806 Sodium Chloride 1,000 ML Q20H 04/01 0845 AC 04/04 IV 2027 Valproate Sodium 1,000 MG Q8H 03/28 0200 AC 04/05 Sodium Chloride 100 ML IV 0204 Vital Signs & I&O Last 24 Hrs of Vitals and I&O: Vital Signs Date Time Temp Pulse Resp B/P Pulse O2 O2 Flow FiO2 Ox Delivery Rate 04/05 0829 30 04/05 0737 64 87/48 04/05 0600 30 04/05 0500 99 Ventilator 30% 04/05 0326 30 04/05 0020 30 04/05 0000 97 Ventilator 30% 04/05 0000 96.8 70 11 96/54 97 Ventilator 30% 04/04 2148 30 04/04 2000 99 Ventilator 30% 04/04 1912 30 04/04 1635 30 04/04 1600 97.7 82 18 122/60 95 Ventilator 30% 04/04 1600 95 Ventilator 30% 04/04 1435 30 04/04 1200 95 Ventilator 30% 04/04 1148 30 Intake & Output 04/05 1600 04/05 0800 04/05 0000 Intake Total 2307.3 3631 Output Total 225 250 Balance 2082.3 3381 Intake, IV 1674.3 3213 Intake, Oral 0 0 Intake, Other 190 190 Intake, Tube 443 228 Feeding Number 3 2 Bowel Movements Output, Urine 225 250 Exam General Appearance: lethargic, intubated, appears chronically ill Head: atraumatic, normal appearance, lower lip appears black and scabbed over Neck: normal inspection, supple Respiratory: no respiratory distress, a few scattered rhonchi are heard Cardiovascular: regular rate/rhythm Abdomen: normal bowel sounds, soft, non-tender Extremities: no edema Skin: intact, normal color, warm/dry, no evidence of ecchymosis at the area of LP Results Last 24 Hrs of Lab Results: Laboratory Tests 04/05/16 0338: Anion Gap 5, Estimated GFR > 60, Glucose 157 H, Calcium 7.3 L, Phosphorus 3.3, Magnesium 1.8, Total Bilirubin 0.1 L, AST 13 L, ALT 25, Albumin 1.9 L, CBC w Diff NO MAN DIFF REQ, RBC 2.55 L, MCV 86.9, MCH 28.6, RDW 14.3, MPV 8.6, Gran % 70.1, Lymphocytes % 15.7 L, Monocytes % 12.5 H, Eosinophils % 1.3, Basophils % 0.4, Absolute Granulocytes 5.5, Absolute Lymphocytes 1.2, Absolute Monocytes 1.0 H, Absolute Eosinophils 0.1, Absolute Basophils 0, PUBS MCHC 32.9 L 04/04/16 1600: CSF Glucose 107 H, CSF Total Protein 102 H 04/04/16 1600: Lymphocytes 96, % Normal PMNs 3, Misc Hematology Test , CSF WBC 14 *H, CSF RBC 1 H, CSF Comment , Herpes Simplex Source Pending, HSV I DNA PCR Pending, HSV II DNA PCR Pending Diagnostic Data CXR Findings: Endotracheal tube tip approximately 1.5 cm above the eugenio. Small lung volumes with left base atelectasis. Impression/Plan Impression/Plan Impression/Plan: 1. Ongoing encephalopathy, now with evidence of cerebritis and mastoiditis, no seizures seen on EEG, results consistent with a toxic/metabolic encephalopathy. Repeat LP shows only 14 WBCs (28,500 on admission CSF). 2. Acute anemia - may be dilutional, without evidence of active bleeding. 3. Respiratory failure secondary to ventilatory failure - day 11 mechanical ventilation. Lower respiratory culture growing gram-negative rods and staph aureus. Chest x-ray has no evidence of infiltrates in the patient's oxygenation has been stable. 4. Malnutrition. 5. Systolic murmur without evidence of endocarditis on TTE and SAMUEL. Recommendations: * Hold off on weaning trials today. * Check an ABG on current vent settings. * Transfuse 2 units of packed red blood cells. * Repeat all labs after transfusions, including CBC, ICU bundle, lactic acid, and troponin. * Continue normal saline at 50 ML per hour, will bolus as necessary. Monitor strict I's and O's and ensure urine output is at least 30 ML per hour. * Wean Levophed down to off as blood pressure tolerates. * Will check a head CT tomorrow as recommended by neurology. * Follow up ID and neuro input. * Continue ceftriaxone for mastoiditis. * Continue to follow antiseizure regimen as per neurology. * Continue tubes feeds at goal. * Please check a pre-albumin with next blood draw. * Check a Depakote level tomorrow. * Continue DVT and GI prophylaxis. * Continue all supportive care for now. * I will attempt to have a family meeting at the bedside today to update the family.
--- NOTE | 2016-04-05 13:20 | PN- Infect Dx ---
Subjective Subjective: The patient remains minimally responsive; mental status continues to wax and wane; overnight hypotensive. Dcreased urine output and has required IV fluids; Dominguez patent; urine appears concentrated. Review of Systems Comments: 10 points reviewed as noted, otherwise negative. Objective Last 24 Hrs of Vital Signs/I&O Vital Signs Date Time Temp Pulse Resp B/P Pulse O2 O2 Flow FiO2 Ox Delivery Rate 04/05 1200 95 Ventilator 30% 04/05 1117 30 04/05 0829 30 04/05 0800 99 Ventilator 30% 04/05 0800 97.3 60 12 117/66 99 Ventilator 30% 04/05 0737 64 87/48 04/05 0600 30 04/05 0500 99 Ventilator 30% 04/05 0326 30 04/05 0020 30 04/05 0000 97 Ventilator 30% 04/05 0000 96.8 70 11 96/54 97 Ventilator 30% 04/04 2148 30 04/04 2000 99 Ventilator 30% 04/04 1912 30 04/04 1635 30 04/04 1600 97.7 82 18 122/60 95 Ventilator 30% 04/04 1600 95 Ventilator 30% 04/04 1435 30 Intake & Output 04/05 1600 04/05 0800 04/05 0000 Intake Total 2307.3 3631 Output Total 225 250 Balance 2082.3 3381 Intake, IV 1674.3 3213 Intake, Oral 0 0 Intake, Other 190 190 Intake, Tube 443 228 Feeding Number 3 2 Bowel Movements Output, Urine 225 250 Physical Exam Other Physical Findings: General Appearance: lethargic, intubated Neuro: not opening eyes to voice Head: atraumatic, normal appearance, ETT in place Neck: normal inspection, supple Respiratory: no respiratory distress, a few scattered rhonchi are heard Cardiovascular: regular rate/rhythm Abdomen: normal bowel sounds, soft, non-tender Extremities: no edema, R UE line in place Skin: intact, normal color, warm/dry Results Last 24 Hours of Lab Results: Laboratory Tests 04/05 04/05 0955 0338 Blood Gas pH (7.35 - 7.45 PH) 7.49 H pCO2 (35 - 45 TORR) 35 pO2 (80 - 100 TORR) 98 HCO3 (21 - 28 MEQ/L) 26 ABG O2 Sat (Measured) (>96.0 %) 98.0 P-50 (Temp Corrected) YES Carboxyhemoglobin (1.5 - 5.0 %) 0.3 L O2 Concentration % 30 Temperature (97.0 - 100.0 FARH) 96.8 L Respiration Rate (BPM) 10 O2 Delivery Method VENT Vent Mode AC Expiratory Pressure (CMH2O/P) 5 Tidal Volume (CC) 450 Chemistry Sodium (137 - 145 mmol/L) 139 Potassium (3.5 - 5.1 mmol/L) 4.1 Chloride (98 - 107 mmol/L) 105 Carbon Dioxide (22 - 30 mmol/L) 29 Anion Gap (5 - 16) 5 BUN (7 - 17 mg/dL) 13 Creatinine (0.5 - 1.0 mg/dL) 0.6 Estimated GFR (>60 ml/min) > 60 Glucose (65 - 99 mg/dL) 157 H Calcium (8.4 - 10.2 mg/dL) 7.3 L Phosphorus (2.5 - 4.5 mg/dL) 3.3 Magnesium (1.6 - 2.3 mg/dL) 1.8 Total Bilirubin (0.2 - 1.3 mg/dL) 0.1 L AST (14 - 36 U/L) 13 L ALT (9 - 52 U/L) 25 Albumin (3.5 - 5.0 g/dL) 1.9 L Hematology CBC w Diff NO MAN DIFF REQ WBC (4.8 - 10.8 /CUMM) 7.8 RBC (4.20 - 5.40 /CUMM) 2.55 L Hgb (12.0 - 16.0 G/DL) 7.3 *L Hct (37 - 47 %) 22.1 L MCV (81.0 - 99.0 FL) 86.9 MCH (27.0 - 31.0 PG) 28.6 RDW (11.5 - 14.5 %) 14.3 Plt Count (130 - 400 /CUMM) 200 MPV (7.4 - 10.4 FL) 8.6 Gran % (42.2 - 75.2 %) 70.1 Lymphocytes % (20.5 - 51.1 %) 15.7 L Monocytes % (1.7 - 9.3 %) 12.5 H Eosinophils % (0 - 5 %) 1.3 Basophils % (0.0 - 2.0 %) 0.4 Absolute Granulocytes (1.4 - 6.5 /CUMM) 5.5 Absolute Lymphocytes (1.2 - 3.4 /CUMM) 1.2 Absolute Monocytes (0.10 - 0.60 /CUMM) 1.0 H Absolute Eosinophils (0.0 - 0.7 /CUMM) 0.1 Absolute Basophils (0.0 - 0.2 /CUMM) 0 PUBS MCHC (33.0 - 37.0 G/DL) 32.9 L Miscellaneous Phlebotomy Draw Site LEFT BRACHIAL 04/04 04/04 1600 1600 Hematology Lymphocytes (%) 96 % Normal PMNs (%) 3 Misc Hematology Test (%) Other Body Source CSF WBC (0 - 5 /CUMM) 14 *H CSF RBC (-0 /CUMM) 1 H CSF Comment CSF Glucose (40 - 70 mg/dL) 107 H CSF Total Protein (12 - 60 mg/dL) 102 H Serology Herpes Simplex Source Pending HSV I DNA PCR Pending HSV II DNA PCR Pending Last 24 Hours of [place] Results: SPEC #: [id number] MANJEET: 04/03/16 STATUS: RES RECD: 04/03/[address]: NICCI ALDRICH, KAILA SOURCE: LOWER RESP ENTR: 04/03/[address]: AUSTIN ALDRICH,Talisha DICKSON SPDESC: SPUTUMTRAP ALESHIA ALDRICH,EILEEN Tatum ORDERED: LOWER RESPIRATO Procedure Result > GRAM STAIN Final 04/03/16-1234 WHITE BLOOD CELLS MANY SQUAMOUS CELLS RARE GRAM POSITIVE COCCI MANY GRAM NEGATIVE RODS FEW GRAM NEGATIVE COCCI FEW GRAM POSITIVE RODS RARE > LOWER RESPIRATORY CULTURE Preliminary 04/04/16 Moderate growth of: 1.GRAM NEGATIVE RODS Identification and sensitivities to follow 2. STAPH AUREUS ISOLATED NOTE THIS IS A PRELIMINARY REPORT: IF: patient has had significant exposure to a healthcare setting in the past three (3) months, THEN: suspect Methicillin Resistant Staph aureus and place patient on Contact precautions PENDING susceptibility results TO FOLLOW Recent Imaging Studies: SERVICE DATE: 04/05/16 EXAM TYPE: RAD - XRY-PORTABLE CHEST XRAY EXAMINATION: XR PORTABLE CHEST CLINICAL INFORMATION: Intubated. Check tube position. COMPARISON: April 04, 2016 and studies dating back to March 17, 2016. TECHNIQUE: Portable AP view of the chest was obtained. FINDINGS: Endotracheal tube is seen with tip approximately 1.5 cm above the eugenio. There are small lung volumes with left base disease most likely related to atelectasis and possibly small pleural effusion. The cardiopericardial silhouette is upper limits of normal in size. No evidence of pulmonary edema. Nasogastric tube is seen traversing toward the stomach with tip not being identified on this underpenetrated study. Right upper extremity PICC line in place with tip not being visualized due to underpenetration. No pneumothorax. IMPRESSION: Endotracheal tube tip approximately 1.5 cm above the eugenio. Small lung volumes with left base atelectasis. DICTATED BY: JYOTHI MIRANDA MD DATE/TIME DICTATED:04/05/16717 FLAKER TENDER:PAUL DATE/TIME TRANSCRIBED:04/05/16717 Assessment/Plan Impression: 1. Ongoing encephalopathy, now with evidence of cerebritis and mastoiditis, no seizures seen on EEG, results consistent with a toxic/metabolic encephalopathy. Repeat LP shows only 14 WBCs (28,500 on admission CSF). 2. Acute anemia - may be dilutional, without evidence of active bleeding. 3. Respiratory failure secondary to ventilatory failure - day 11 mechanical ventilation. Lower respiratory culture growing gram-negative rods and staph aureus. Chest x-ray has no evidence of infiltrates in the patient's oxygenation has been stable. 4. Malnutrition. 5. Systolic murmur without evidence of endocarditis on TTE and SAMUEL. 6. At risk for VAP; minimal resp secretions; CXR read as atelectasis MS appears to be waxing and waning, suggesting the possibility of an ongoing process in the brain. The recent CT findings as noted previously, and it is not clear if any of these findings can explain her mental status. Her repeat EEG does reveal FIRDA, which apparently can indicate dysfunction in the deep subcortical regions. Have discussed these findings with Neurology who will reevaluate her. MRI would clearly be helpful, particularly in evaluating the brain parenchyma, but would require transfer to [place]. She was restarted on Ceftriaxone yesterday after discussion with me based on her CT findings of mastoiditis, now involving the right side as well as the left side, status post bilateral myringotomies and tympanostomy tubes by ENT yesterday, with ear cultures growing what appears to be coag-negative Staph which likely represents skin contamination. Suggestion: 1. Neurology follow-up 2. Would consider transfer to [place] for MRI 3. Repeat CT of the head with IV contrast in several days if she remains at [place] 4. Continue Ceftriaxone 2 g IV every 12 hours; if hypotensive again would add iv vancomycin; goal trough 15-20 (Strep pneumonia S CTX, although KEATON not available).
--- NOTE | 2016-04-05 14:27 | PN- Resident CRCU ---
Subjective HPI/CRCU Issues: In the ICU for:strep pneumo Meningitis, intubated Overnight patient became hyper intensities down to 80s systolic and 40s diastolic. She did receive lumbar puncture yesterday, she tolerated procedure well. She got 1 mg Ativan and some propofol for sedation. Likely hypertension is secondary to procedure and anesthetic. She received 3.5 L of bolus and when her pressures did not adequately respond she was started on Levothroid 2.5 g. Subsequently pressures this a.m. trended up to the 120s and 130s systolic. We discontinued levo fed. Patient continues on her normal maintenance fluids at this time. She has been afebrile, white count at 7.8. However, her H&H dropped from 8.4-7.3. She did receive large volume of fluids, likely some component of hemodilution. However goes for patient to remain about 8. She received 1 unit PRBC transfusion this AM. We will follow-up CBC around 6 PM. For further details regarding overight events please see even note written by Dr. Luis Schilling. Objective Vital Signs & I&O Last 8 Hrs of Vitals and I&O: Intake & Output 04/05 1600 Intake Total 1670 Output Total Balance 1670 Intake, Blood 700 Product Intake, IV 300 Intake, Oral 0 Intake, Tube 480 Feeding Intake, Tube 190 Irrigant Number 0 Bowel Movements Exam General Appearance: well developed/nourished, no apparent distress, intubated Head: atraumatic Ears, Nose, Throat: normal pharynx, normal ENT inspection Neck: supple Respiratory: normal breath sounds, chest non-tender, no respiratory distress Cardiovascular: regular rate/rhythm, systolic murmur Gastrointestinal: soft, non-tender Weaning Parameters NIF: 31 Minute Volume: 8.36 Resp rate: 18 Vt: 355 Heart Rate: 98 Weaning Schedule Start Time: 0900 Minute Volume: 8.36 Resp Rate: 18 Vt: 355 Heart Rate: 98 End Time: 0908 Minute Volume: 10.3 Resp Rate: 35 Vt: 245 Heart Rate: 88 Start Time: 0950 Minute Volume: 7.99 Resp Rate: 29 Vt: 273 Heart Rate: 88 End Time: 1111 Minute Volume: 6.79 Resp Rate: 24 Vt: 475 Heart Rate: 79 IV Drips IV Drips: 1 unit PRBC Legal 5-2.5 g Tube feed IV fluids running at 75 Current Medications: Current Medications Sig/Garrick Start time Last Medication Dose Route Stop Time Status Admin Acetaminophen 1,000 MG Q6-PRN PRN 03/17 1630 AC 03/20 N/A 1 UNIT IV 1552 Ceftriaxone Sodium 2,000 MG BID 04/03 1000 AC 04/05 IV 0923 Ciprofloxacin 4 GTT BID 04/03 1000 AC 04/05 OTIC 04/09 2201 0923 Dexamethasone 4 GTT BID 04/03 1000 AC 04/05 OTIC 04/09 220 0923 Heparin Sodium 5,000 UNIT Q8 03/25 1400 AC 04/05 (Porcine) SC 1355 Hydralazine HCl 10 MG Q8 PRN 03/23 1315 AC 03/25 IV 0720 Insulin Human Regular 0 Q6 03/17 1800 AC 04/05 SC 1354 Levetiracetam 1,500 MG Q12H 03/28 0600 AC 04/05 Sodium Chloride 100 ML IV 0541 Levothyroxine Sodium 12.5 MCG DAILY 03/19 1000 AC 04/05 IV 1027 Lorazepam 1 MG ONE ONE 04/04 1800 DC 04/04 IV 04/04 1801 1545 Lorazepam 1 MG Q1P PRN 03/25 1100 AC 03/28 IV 2006 Morphine Sulfate 1 MG ONCE ONE 04/04 1800 DC 04/04 IV 04/04 1801 1545 Naloxone HCl 0.4 MG ONCE ONE 04/05 0045 DC 04/05 IV 04/05 0046 0046 Naloxone HCl 0.4 MG ONCE ONE 04/04 2315 DC 04/04 IV 04/04 2316 2320 Non-Formulary 0 SEE ADMIN CRITERIA 04/04 181 DC Medication ANY Norepinephrine 4 MG ONCE ONE 04/05 0730 AC 04/05 Sodium Chloride 250 ML IV 04/15 1729 0737 Pantoprazole Sodium 40 MG DAILY 03/18 1000 AC 04/05 IV 0923 Polyethylene Glycol 17 GM DAILY PRN 03/31 1215 AC 04/02 PO 0025 Propofol 1,000 MG ONE 04/04 1815 DC 04/04 N/A 100 ML IV 04/04 2000 1600 Propofol 1,000 MG .STK-MED ONE 04/04 1543 DC IV 04/04 1544 Sodium Chloride 500 ML BOLUS ONE 04/05 0515 DC 04/05 IV 04/05 0614 0508 Sodium Chloride 500 ML BOLUS ONE 04/05 0115 DC 04/05 IV 04/05 0214 0106 Sodium Chloride 1,000 ML BOLUS ONE 04/04 2145 DC / IV 04/04 2244 2147 Sodium Chloride 1,000 ML BOLUS ONE 04/04 1900 DC / IV 04/04 195 1900 Sodium Chloride 500 ML BOLUS ONE 04/04 1800 DC /10 IV 04/04 1859 1806 Sodium Chloride 1,000 ML Q20H 04/01 0845 AC 04/04 IV 202 Valproate Sodium 1,000 MG Q8H 03/28 0200 AC 04/05 Sodium Chloride 100 ML IV 1025 Impression/Plan Impression/Problem List Impression: This is a 70 year old female with PMH of hypotension, hyperlipidemia, hypothyroidism DM who came was brought to hospital after being found unresponsive. She had one day of otalgia and difficulty hearing. Found down and unresponsive, subsequently brought to . In ED was found to have Tmax 102, AMS/ agitation, CT with pneumocephalus in temporal lobe, and opacification of mastoid air cells. Due to concern for bacterial meningitis 2/2 otitis she was admitted to ICU. PLAN Respiratory: Pt was intubated on 03/25/2016; Continues to be intubated but under no sedation. Her respiratory status is stable. She is satting 30 FiO2, Hemodynamically stable, unable to follow any commands. Not ready for extubation. If she remains persistently unable to be extubated plans for trach and PEG early next week. * Con't mechanical ventilation--> will not attempt weaning off trial today as patient was hypotensive last night. * We spoke with family regarding long-term direction of patient's respiratory status. They are on board for trach sometime next week * Aspiration precautions Neuro/ID: 1. Step Pneumo Meningitis: Patient has strep pneumo meningitis confirmed by CSF culture and blood culture. Finished 4 day course of Decadron. Initial CSF white count was over 20,000 and repeat LP showed white blood cell of only 42. 2x TTEs and one SAMUEL have both been negative for any valvular pathology. Got treated with 14 days of ceftriaxone (stopped on 03/31/2016) and vancomycin intermittently. Vanco given Mar 18- then Mar 25-Mar 28. Note that one culture of her LRC grew staph aureus. negative for MRSA; negative cxr. Her mental status is now the primary issue; she seems a waxing and waning in mental status. Yesterday she was following simple can commands today she really would open her eyes. EEG has not shown up lentiform activity she got bilateral ear tube placement on 04/13/2016 to address the bilateral mastoid opacification seen on CT. Fluid negative for any suspicious organism, just growing coag negative staph which is likely contaminant. Patient had MAXIMUM TEMPERATURE 100 overnight. * We will continue ceftriaxone at 2mg q12 and per ID, if she becomes hypotensive again we will start IV vancomycin with a goal trough of 15-20. * Negative chest x-ray * Repeat CT-head with IV contrast on 04/03 showed no change. On speaking with neuroradiologist there seems to be possibility of a communicating hydrocephalus and she does have some meningeal inflammation. Patient is scheduled for repeat CT tomorrow * Negative EEG * Thank you Neuro consult * Thank you ENT consult * [place] * f/U Neuro recs 2. New onset Seizures: Patient has new onset seizures which started early a.m. on 03/24/2016. Since then she has had a repeat seizure activity, at least 2 episodes of GTC. The rest seem to be focal, localized to her right arm. EEG about a week ago showed corresponding epileptiform activity in left hemisphere. Pt currently on Keppra and Depakote IV with increased doses. EEG done yesterday negative * Appreciate Neurology consult * Con't Keppra nad Depakote * CT head CVS: Patient episode of hypotension yesterday with blood pressure 87/48. She was given 3.5 L of fluids did not respond and subsequently was started on 2.5 g of levothyroxine. She adequately responded blood pressures reaching 120s and 130s systolic. Levophed was turned off. Patient is currently hemodynamically stable and off pressors however she continuously ventilated. * ABG * 2 units PRBC * CBC, ICU bundle, lactic acid, troponin, EKG stat * Normal saline at 50 mL * Strict I's and O's * Measure prealbumin Heme/Onc: Stable. Will con't monitor. Msk: Moving r. side less than left initially. Now she is not moving any limb to command. GI: placed Dobbhoff on 03/20. Con't tube feeds. * RISS * Tube feeds * Protonix Con't Synthroid. FULL CODE TUBE FEED CHEM/ALPS DVT PPX Problem List: 1. Meningitis 2. Sepsis 3. Left otitis media 4. Lactic acidosis 5. Altered mental state Pain Ratin Tomorrow's Labs & Rationales: icu cbc Plan DVT/Prophylaxis: pharmacological
[2016-04-05 16:00] VITALS: BP 120/62
[2016-04-05 16:11] LABS: ABSOLUTE BASOPHIL COUNT 0 /CUMM (0.0-0.2); ABSOLUTE EOSINOPHIL COUNT 0.1 /CUMM (0.0-0.7); ABSOLUTE GRANULOCYTE CT 4.8 /CUMM (1.4-6.5); ABSOLUTE LYMPH COUNT 1.2 /CUMM (1.2-3.4); ABSOLUTE MONOCYTE COUNT 0.9 /CUMM (0.10-0.60); BASOPHIL % 0.4 % (0.0-2.0); EOSINOPHIL % 1.3 % (0-5); GRANULOCYTE % 68.7 % (42.2-75.2); MEAN CORPUSCULAR HGB 28.4 PG (27.0-31.0); MEAN CORPUSCULAR HGB CONC 33.1 G/DL (33.0-37.0); MEAN CORPUSCULAR VOLUME 85.8 FL (81.0-99.0); MEAN PLATELET VOLUME 8.7 FL (7.4-10.4); PLATELET COUNT 194 /CUMM (130-400); RBC DISTRIBUTION WIDTH 14.7 % (11.5-14.5); WHITE BLOOD CELL COUNT 6.9 /CUMM (4.8-10.8)
[2016-04-05 16:13] LABS: HEMATOCRIT 29.1 % (37-47); RED BLOOD CELL CT 3.39 /CUMM (4.20-5.40)
--- NOTE | 2016-04-05 20:15 | NUR ---
PT ONLY GRIMACES TO NOXIOUS STIMULI. NO SEIZURE ACTIVITY SEEN. INTUBATED ON RESPIRATOR, TF TO OGT NO RESIDUAL OBTAINED. EDEMATOUS. LIP CONDITION DISCUSSED WITH SUPPORT CLERK. MOUTH CARE GIVEN.
[2016-04-06] VITALS: BP 112/66
[2016-04-06 05:12] LABS: ABSOLUTE BASOPHIL COUNT 0 /CUMM (0.0-0.2); ABSOLUTE EOSINOPHIL COUNT 0.1 /CUMM (0.0-0.7); ABSOLUTE GRANULOCYTE CT 4.8 /CUMM (1.4-6.5); ABSOLUTE LYMPH COUNT 1.2 /CUMM (1.2-3.4); ABSOLUTE MONOCYTE COUNT 1.2 /CUMM (0.10-0.60); BASOPHIL % 0.3 % (0.0-2.0); EOSINOPHIL % 1.1 % (0-5); GRANULOCYTE % 66.3 % (42.2-75.2); HEMATOCRIT 30.4 % (37-47); MEAN CORPUSCULAR HGB 28.7 PG (27.0-31.0); MEAN CORPUSCULAR HGB CONC 33.4 G/DL (33.0-37.0); MEAN CORPUSCULAR VOLUME 85.8 FL (81.0-99.0); MEAN PLATELET VOLUME 8.7 FL (7.4-10.4); PLATELET COUNT 215 /CUMM (130-400); RBC DISTRIBUTION WIDTH 15.2 % (11.5-14.5); RED BLOOD CELL CT 3.55 /CUMM (4.20-5.40); WHITE BLOOD CELL COUNT 7.3 /CUMM (4.8-10.8)
[2016-04-06 08:00] VITALS: BP 136/72
--- NOTE | 2016-04-06 08:36 | PN- Resident CRCU ---
Subjective HPI/CRCU Issues: Patient was seen and examined. Patient remained minimally responsive. Patient MAXIMUM TEMPERATURE yesterday was 98.9. Her blood pressure improved yesterday showed during the last shift to be above 120s/60s. Patient urine output improved. She still on ventilation(date 12) Objective Vital Signs & I&O Last 8 Hrs of Vitals and I&O: Intake & Output 04/06 1600 04/06 0800 04/06 0000 Intake Total 1070 1070 Output Total 1000 555 Balance 70 515 Intake, IV 400 400 Intake, Tube 480 480 Feeding Intake, Tube 190 190 Irrigant Number 2 Bowel Movements Output, Urine 1000 555 Laboratory Tests 04/06 04/05 0415 1600 Chemistry Sodium (137 - 145 mmol/L) 136 L 138 Potassium (3.5 - 5.1 mmol/L) 4.3 4.3 Chloride (98 - 107 mmol/L) 102 104 Carbon Dioxide (22 - 30 mmol/L) 28 29 Anion Gap (5 - 16) 7 5 BUN (7 - 17 mg/dL) 12 14 Creatinine (0.5 - 1.0 mg/dL) 0.6 0.5 Estimated GFR (>60 ml/min) > 60 > 60 Glucose (65 - 99 mg/dL) 180 H 166 H Lactic Acid (0.7 - 2.1 mmol/L) 1.8 Calcium (8.4 - 10.2 mg/dL) 8.0 L 7.6 L Phosphorus (2.5 - 4.5 mg/dL) 2.8 2.9 Magnesium (1.6 - 2.3 mg/dL) 1.8 1.8 Total Bilirubin (0.2 - 1.3 mg/dL) 0.2 0.1 L AST (14 - 36 U/L) 12 L 14 ALT (9 - 52 U/L) 26 27 Troponin I (< 0.11 ng/ml) 0.02 Albumin (3.5 - 5.0 g/dL) 2.1 L 2.0 L Prealbumin (17.6 - 36.0 mg/dL) 9.1 L Hematology CBC w Diff NO MAN DIFF REQ NO MAN DIFF REQ WBC (4.8 - 10.8 /CUMM) 7.3 6.9 RBC (4.20 - 5.40 /CUMM) 3.55 L 3.39 L Hgb (12.0 - 16.0 G/DL) 10.2 L 9.6 L Hct (37 - 47 %) 30.4 L 29.1 L MCV (81.0 - 99.0 FL) 85.8 85.8 MCH (27.0 - 31.0 PG) 28.7 28.4 RDW (11.5 - 14.5 %) 15.2 H 14.7 H Plt Count (130 - 400 /CUMM) 215 194 MPV (7.4 - 10.4 FL) 8.7 8.7 Gran % (42.2 - 75.2 %) 66.3 68.7 Lymphocytes % (20.5 - 51.1 %) 16.1 L 17.1 L Monocytes % (1.7 - 9.3 %) 16.2 H 12.5 H Eosinophils % (0 - 5 %) 1.1 1.3 Basophils % (0.0 - 2.0 %) 0.3 0.4 Absolute Granulocytes (1.4 - 6.5 /CUMM) 4.8 4.8 Absolute Lymphocytes (1.2 - 3.4 /CUMM) 1.2 1.2 Absolute Monocytes (0.10 - 0.60 /CUMM) 1.2 H 0.9 H Absolute Eosinophils (0.0 - 0.7 /CUMM) 0.1 0.1 Absolute Basophils (0.0 - 0.2 /CUMM) 0 0 PUBS MCHC (33.0 - 37.0 G/DL) 33.4 33.1 Toxicology Valproic Acid (50 - 120 ug/mL) Pending Exam General Appearance: no apparent distress, intubated Head: atraumatic, normal appearance Respiratory: no respiratory distress, quiet respiration, scattered rhonchi Cardiovascular: regular rate/rhythm Gastrointestinal: normal bowel sounds, soft Extremities: no edema Skin: intact, no sign or symptoms suggestive of any skin infection, some mild dark discoloration of the lips Weaning Parameters NIF: 31 Minute Volume: 8.36 Resp rate: 18 Vt: 355 Heart Rate: 98 Weaning Schedule Start Time: 0900 Minute Volume: 8.36 Resp Rate: 18 Vt: 355 Heart Rate: 98 End Time: 0908 Minute Volume: 10.3 Resp Rate: 35 Vt: 245 Heart Rate: 88 Start Time: 0950 Minute Volume: 7.99 Resp Rate: 29 Vt: 273 Heart Rate: 88 End Time: 1111 Minute Volume: 6.79 Resp Rate: 24 Vt: 475 Heart Rate: 79 Current Medications: Current Medications Sig/Garrick Start time Last Medication Dose Route Stop Time Status Admin Acetaminophen 1,000 MG Q6-PRN PRN 03/17 1630 AC 03/20 N/A 1 UNIT IV 1552 Acyclovir 1 SULEMAN Q5 04/06 1200 AC 04/06 TOP 1018 Ampicillin Sodium/ 3,000 MG Q6 04/06 1212 UNVr Sulbactam Sodium IV Sodium Chloride 100 ML Ceftriaxone Sodium 2,000 MG BID 04/03 1000 DC 04/06 IV 0933 Ciprofloxacin 4 GTT BID 04/03 1000 AC 04/06 OTIC 04/09 2201 0934 Dexamethasone 4 GTT BID 04/03 1000 AC 04/06 OTIC 04/09 2201 0933 Heparin Sodium 5,000 UNIT Q8 03/25 1400 AC 04/06 (Porcine) SC 0541 Hydralazine HCl 10 MG Q8 PRN 03/23 1315 AC 03/25 IV 0720 Insulin Human Regular 0 Q6 03/17 1800 AC 04/06 SC 1126 Levetiracetam 1,500 MG Q12H 03/28 0600 AC 04/06 Sodium Chloride 100 ML IV 0508 Levothyroxine Sodium 12.5 MCG DAILY 03/19 1000 AC 04/06 IV 1019 Lorazepam 1 MG Q1P PRN 03/25 1100 AC 03/28 IV 2006 Magnesium Sulfate 1 GM ONCE ONE 04/06 0845 AC 04/06 Dextrose/Water 100 ML IV 04/06 1244 0933 Norepinephrine 4 MG ONCE ONE 04/05 0730 DC 04/05 Sodium Chloride 250 ML IV 04/15 1729 0737 Pantoprazole Sodium 40 MG DAILY 03/18 1000 AC 04/06 IV 0933 Phosphate 500 MG ONCE ONE 04/06 0845 DC 04/06 PO 04/06 0846 0933 Polyethylene Glycol 17 GM DAILY PRN 03/31 1215 AC 04/02 PO 0025 Sodium Chloride 1,000 ML Q20H 04/01 0845 AC 04/06 IV 1128 Valproate Sodium 1,000 MG Q8H 03/28 0200 AC 04/06 Sodium Chloride 100 ML IV 1018 Impression/Plan Impression/Problem List Impression: Impression: This is a 70 year old female with PMH of hypotension, hyperlipidemia, hypothyroidism DM who came was brought to hospital after being found unresponsive. She had one day of otalgia and difficulty hearing. Found down and unresponsive, subsequently brought to . In ED was found to have Tmax 102, AMS/ agitation, CT with pneumocephalus in temporal lobe, and opacification of mastoid air cells. Due to concern for bacterial meningitis 2/2 otitis she was admitted to ICU. PLAN Respiratory: Pt was intubated on 03/25/2016; Continues to be intubated but under no sedation. Her respiratory status is stable. She is satting 30 FiO2, Hemodynamically stable, unable to follow any commands. Not ready for extubation. If she remains persistently unable to be extubated plans for trach and PEG early next week. * Con't mechanical ventilation * We spoke with family regarding long-term direction of patient's respiratory status. They are on board for trach sometime next week * We will apply acyclovir cream over the patient lips to cover herpes simplex as a possible explanation for her lips hematoma * Aspiration precautions Neuro/ID: 1. Step Pneumo Meningitis: Patient has strep pneumo meningitis confirmed by CSF culture and blood culture. Finished 4 day course of Decadron. Initial CSF white count was over 20,000 and repeat LP showed white blood cell of only 42. 2x TTEs and one SAMUEL have both been negative for any valvular pathology. Got treated with 14 days of ceftriaxone (stopped on 03/31/2016) and vancomycin intermittently. Vanco given Mar 18- then Mar 25-Mar 28. Note that one culture of her LRC grew staph aureus. negative for MRSA; negative cxr. Her mental status is now the primary issue; she seems a waxing and waning in mental status. Yesterday she was following simple can commands today she really would open her eyes. EEG has not shown up lentiform activity she got bilateral ear tube placement on 04/13/2016 to address the bilateral mastoid opacification seen on CT. Fluid negative for any suspicious organism, just growing coag negative staph which is likely contaminant. Patient had MAXIMUM TEMPERATURE 98.9 overnight. * We will switch ceftriaxone to Unasyn 3 gm q6h. as per ID (call ID if fever) * Repeat CT-head today show no worsening than yesterday * Negative EEG * Thank you Neuro consult * Thank you ENT consult * Panculture * f/U Neuro recs 2. New onset Seizures: Patient has new onset seizures which started early a.m. on 03/24/2016. Since then she has had a repeat seizure activity, at least 2 episodes of GTC. The rest seem to be focal, localized to her right arm. EEG about a week ago showed corresponding epileptiform activity in left hemisphere. Pt currently on Keppra and Depakote IV with increased doses. EEG done yesterday negative * Appreciate Neurology consult * Con't Keppra nad Depakote * We will order Depakote level CVS: Patient episode of hypotension on 04/04/16 with blood pressure 87/48. She was given 3.5 L of fluids did not respond and subsequently was started on 2.5 g of levothyroxine. She adequately responded blood pressures reaching 120s and 130s systolic. Levophed was turned off. Patient is currently hemodynamically stable and off pressors however she continuously ventilated. * For tomorrow CBC, ICU bundle, lactic acid * Normal saline at 50 mL * Strict I's and O's * Measure prealbumin Heme/Onc: Stable. Will con't monitor. Msk: Moving r. side less than left initially. Now she is not moving any limb to command. GI: placed Dobbhoff on 03/20. Con't tube feeds. * RISS * Tube feeds * Protonix Con't Synthroid. FULL CODE TUBE FEED CHEM/ALPS DVT PPX Problem List: 1. Meningitis 2. Sepsis 3. Left otitis media 4. Altered mental state 5. Lactic acidosis Pain Ratin Tomorrow's Labs & Rationales: CBC and ICU bundle Plan DVT/Prophylaxis: pharmacological
--- NOTE | 2016-04-06 10:44 | PN- CRCU ---
Subjective HPI/Critical Care Issues: The patient remains minimally responsive. Her blood pressure and urine output have significantly improved overall. Her vital signs remained stable. She continues to be stable on mechanical ventilation noting that her oxygenation remains at 30% (Day 12 mechanical ventilation). Objective Current Medications: Current Medications Sig/Garrick Start time Last Medication Dose Route Stop Time Status Admin Acetaminophen 1,000 MG Q6-PRN PRN 03/17 1630 AC 03/20 N/A 1 UNIT IV 1552 Acyclovir 1 SULEMAN Q5 04/06 1200 AC 04/06 TOP 1018 Ceftriaxone Sodium 2,000 MG BID 04/03 1000 AC 04/06 IV 0933 Ciprofloxacin 4 GTT BID 04/03 1000 AC 04/06 OTIC 04/09 2201 0934 Dexamethasone 4 GTT BID 04/03 1000 AC 04/06 OTIC 04/09 2201 0933 Heparin Sodium 5,000 UNIT Q8 03/25 1400 AC 04/06 (Porcine) SC 0541 Hydralazine HCl 10 MG Q8 PRN 03/23 1315 AC 03/25 IV 0720 Insulin Human Regular 0 Q6 03/17 1800 AC 04/06 SC 0541 Levetiracetam 1,500 MG Q12H 03/28 0600 AC 04/06 Sodium Chloride 100 ML IV 0508 Levothyroxine Sodium 12.5 MCG DAILY 03/19 1000 AC 04/06 IV 1019 Lorazepam 1 MG Q1P PRN 03/25 1100 AC 03/28 IV 2006 Magnesium Sulfate 1 GM ONCE ONE 04/06 0845 AC 04/06 Dextrose/Water 100 ML IV 04/06 1244 0933 Norepinephrine 4 MG ONCE ONE 04/05 0730 DC 04/05 Sodium Chloride 250 ML IV 04/15 1729 0737 Pantoprazole Sodium 40 MG DAILY 03/18 1000 AC 04/06 IV 0933 Phosphate 500 MG ONCE ONE 04/06 0845 DC 04/06 PO 04/06 0846 0933 Polyethylene Glycol 17 GM DAILY PRN 03/31 1215 AC 04/02 PO 0025 Sodium Chloride 1,000 ML Q20H 04/01 0845 AC 04/04 IV 2027 Valproate Sodium 1,000 MG Q8H 03/28 0200 AC 04/06 Sodium Chloride 100 ML IV 1018 Vital Signs & I&O Last 24 Hrs of Vitals and I&O: Vital Signs Date Time Temp Pulse Resp B/P Pulse O2 O2 Flow FiO2 Ox Delivery Rate 04/06 0730 30 04/06 0800 98 Ventilator 30% 04/06 0800 97.5 74 14 136/72 98 Ventilator 30% 04/06 0638 30 04/06 0400 97 Ventilator 30% 04/06 0337 30 04/06 0039 30 02 0000 98.0 64 14 112/66 97 Ventilator 30% 04/06 0000 97 Ventilator 30% 04/05 2201 30 04/05 2000 93 Ventilator 30% 04/05 1928 30 04/05 1625 30 04/05 1600 96 Ventilator 30% 04/05 1600 98.9 84 12 120/62 95 Ventilator 30% 04/05 1414 30 04/05 1200 95 Ventilator 30% 04/05 1117 30 Intake & Output 04/06 1600 04/06 0800 04/06 0000 Intake Total 1070 1070 Output Total 1000 555 Balance 70 515 Intake, IV 400 400 Intake, Tube 480 480 Feeding Intake, Tube 190 190 Irrigant Number 2 Bowel Movements Output, Urine 1000 555 Exam General Appearance: minimally responsive, intubated, appears chronically ill Head: atraumatic, normal appearance, lower lip appears black and scabbed over Neck: normal inspection, supple Respiratory: no respiratory distress, a few scattered rhonchi are heard Cardiovascular: regular rate/rhythm Abdomen: normal bowel sounds, soft, non-tender Extremities: no edema Skin: intact, normal color, warm/dry Results Last 24 Hrs of Lab Results: Laboratory Tests 04/06/16 0415: Anion Gap 7, Estimated GFR > 60, Glucose 180 H, Calcium 8.0 L, Phosphorus 2.8, Magnesium 1.8, Total Bilirubin 0.2, AST 12 L, ALT 26, Albumin 2.1 L, CBC w Diff NO MAN DIFF REQ, RBC 3.55 L, MCV 85.8, MCH 28.7, RDW 15.2 H, MPV 8.7, Gran % 66.3, Lymphocytes % 16.1 L, Monocytes % 16.2 H, Eosinophils % 1.1, Basophils % 0.3, Absolute Granulocytes 4.8, Absolute Lymphocytes 1.2, Absolute Monocytes 1.2 H, Absolute Eosinophils 0.1, Absolute Basophils 0, PUBS MCHC 33.4 04/05/16 1600: Anion Gap 5, Estimated GFR > 60, Glucose 166 H, Lactic Acid 1.8, Calcium 7.6 L , Phosphorus 2.9, Magnesium 1.8, Total Bilirubin 0.1 L, AST 14, ALT 27, Troponin I 0.02, Albumin 2.0 L, Prealbumin 9.1 L, CBC w Diff NO MAN DIFF REQ, RBC 3.39 L, MCV 85.8, MCH 28.4, RDW 14.7 H, MPV 8.7, Gran % 68.7, Lymphocytes % 17.1 L, Monocytes % 12.5 H, Eosinophils % 1.3, Basophils % 0.4, Absolute Granulocytes 4.8, Absolute Lymphocytes 1.2, Absolute Monocytes 0.9 H, Absolute Eosinophils 0.1, Absolute Basophils 0, PUBS MCHC 33.1 Impression/Plan Impression/Plan Impression/Plan: 1. Ongoing toxic/metabolic encephalopathy, with ? cerebritis and mastoiditis, no further seizures. 2. Acute anemia - may be dilutional, without evidence of active bleeding. 3. Respiratory failure secondary to ventilatory failure - day 12 mechanical ventilation. Lower respiratory culture growing gram-negative rods and staph aureus. Chest x-ray has no evidence of infiltrates in the patient's oxygenation has been stable. 4. Malnutrition. Recommendations: * Please check a portable chest x-ray this morning. * Continue normal saline at 50 ML per hour, will bolus as necessary. Monitor strict I's and O's and ensure urine output is at least 30 ML per hour. * Follow-up head CT results. * Follow up ID and neuro input. * Continue ceftriaxone for mastoiditis. * Continue to follow antiseizure regimen as per neurology. * Continue tubes feeds at goal. Bowel regimen for daily bowel movements. * Please check a pre-albumin with next blood draw. * Add on a Depakote level to today's labs. * Continue DVT and GI prophylaxis. * Continue all supportive care for now. * I met with the patient's family yesterday and updated them on the patient's clinical status. I explained the possibility of transfer for an MRI to them at length. At the present time, the patient's family does not want her to be transferred to another facility. They aren't in favor of moving forward with a tracheostomy and PEG tube placement. I will try to arrange this early next week.
--- NOTE | 2016-04-06 11:05 | PN- Infect Dx ---
Subjective Subjective: The patient remains minimally responsive. Urine output have significantly improved. No fever. Day 12 mechanical ventilation. Review of Systems Comments: 10 points reviewed as noted, otherwise negative. Objective Last 24 Hrs of Vital Signs/I&O Vital Signs Date Time Temp Pulse Resp B/P Pulse O2 O2 Flow FiO2 Ox Delivery Rate 04/06 0830 30 04/06 0800 98 Ventilator 30% 04/06 0800 97.5 74 14 136/72 98 Ventilator 30% 04/06 0638 30 04/06 0400 97 Ventilator 30% 04/06 0337 30 04/06 0039 30 02 0000 98.0 64 14 112/66 97 Ventilator 30% 04/06 0000 97 Ventilator 30% 04/05 2201 30 04/05 2000 93 Ventilator 30% 04/05 1928 30 04/05 1625 30 04/05 1600 96 Ventilator 30% 04/05 1600 98.9 84 12 120/62 95 Ventilator 30% 04/05 1414 30 04/05 1200 95 Ventilator 30% 04/05 1117 30 Intake & Output 04/06 1600 04/06 0800 04/06 0000 Intake Total 1070 1070 Output Total 1000 555 Balance 70 515 Intake, IV 400 400 Intake, Tube 480 480 Feeding Intake, Tube 190 190 Irrigant Number 2 Bowel Movements Output, Urine 1000 555 Physical Exam Other Physical Findings: General Appearance: lethargic, intubated Neuro: not opening eyes to voice, pupils dilated, blinking spontaneously Head: atraumatic, normal appearance, ETT in place Neck: normal inspection, supple Respiratory: BS present, no wheezing Cardiovascular: regular rate/rhythm Abdomen: normal bowel sounds, soft, non-tender, Dominguez cath in place; urine clear Extremities: no edema, R UE PICC line in place w/o erythema Skin: intact, normal color, warm/dry Results Last 24 Hours of Lab Results: Laboratory Tests 04/06 04/05 0415 1600 Chemistry Sodium (137 - 145 mmol/L) 136 L 138 Potassium (3.5 - 5.1 mmol/L) 4.3 4.3 Chloride (98 - 107 mmol/L) 102 104 Carbon Dioxide (22 - 30 mmol/L) 28 29 Anion Gap (5 - 16) 7 5 BUN (7 - 17 mg/dL) 12 14 Creatinine (0.5 - 1.0 mg/dL) 0.6 0.5 Estimated GFR (>60 ml/min) > 60 > 60 Glucose (65 - 99 mg/dL) 180 H 166 H Lactic Acid (0.7 - 2.1 mmol/L) 1.8 Calcium (8.4 - 10.2 mg/dL) 8.0 L 7.6 L Phosphorus (2.5 - 4.5 mg/dL) 2.8 2.9 Magnesium (1.6 - 2.3 mg/dL) 1.8 1.8 Total Bilirubin (0.2 - 1.3 mg/dL) 0.2 0.1 L AST (14 - 36 U/L) 12 L 14 ALT (9 - 52 U/L) 26 27 Troponin I (< 0.11 ng/ml) 0.02 Albumin (3.5 - 5.0 g/dL) 2.1 L 2.0 L Prealbumin (17.6 - 36.0 mg/dL) 9.1 L Hematology CBC w Diff NO MAN DIFF REQ NO MAN DIFF REQ WBC (4.8 - 10.8 /CUMM) 7.3 6.9 RBC (4.20 - 5.40 /CUMM) 3.55 L 3.39 L Hgb (12.0 - 16.0 G/DL) 10.2 L 9.6 L Hct (37 - 47 %) 30.4 L 29.1 L MCV (81.0 - 99.0 FL) 85.8 85.8 MCH (27.0 - 31.0 PG) 28.7 28.4 RDW (11.5 - 14.5 %) 15.2 H 14.7 H Plt Count (130 - 400 /CUMM) 215 194 MPV (7.4 - 10.4 FL) 8.7 8.7 Gran % (42.2 - 75.2 %) 66.3 68.7 Lymphocytes % (20.5 - 51.1 %) 16.1 L 17.1 L Monocytes % (1.7 - 9.3 %) 16.2 H 12.5 H Eosinophils % (0 - 5 %) 1.1 1.3 Basophils % (0.0 - 2.0 %) 0.3 0.4 Absolute Granulocytes (1.4 - 6.5 /CUMM) 4.8 4.8 Absolute Lymphocytes (1.2 - 3.4 /CUMM) 1.2 1.2 Absolute Monocytes (0.10 - 0.60 /CUMM) 1.2 H 0.9 H Absolute Eosinophils (0.0 - 0.7 /CUMM) 0.1 0.1 Absolute Basophils (0.0 - 0.2 /CUMM) 0 0 PUBS MCHC (33.0 - 37.0 G/DL) 33.4 33.1 Last 24 Hours of [place] Results: PEC #: [id number] MANJEET: 04/03/16 STATUS: COMP RECD: 04/03/[address]: NICCI ALDRICH, KAILA SOURCE: LOWER RESP ENTR: 04/03/[address]: AUSTIN ALDRICH,Talisha DICKSON SPDESC: SPUTUMTRAP ALESHIA ALDRICH,EILEEN Tatum ORDERED: LOWER RESPIRATO Procedure Result > GRAM STAIN Final 04/03/16 WHITE BLOOD CELLS MANY SQUAMOUS CELLS RARE GRAM POSITIVE COCCI MANY GRAM NEGATIVE RODS FEW GRAM NEGATIVE COCCI FEW GRAM POSITIVE RODS RARE > LOWER RESPIRATORY CULTURE Final 04/06/16 Moderate growth of: 1.ACINETOBACTER BAUMANNII 2. STAPH AUREUS ISOLATED Acin bauma Staph sabrina RX AB RX AB ------ -- ------ -- CEFAZOLIN S AMOX/CLAV AUGM S AMP/SULB-UNASYN S S CIPROFLOXACIN S GENTAMICIN S TETRACYCLINE S TRIMETH/SULFA S S AZITHROMYCIN S CLINDAMYCIN S ERYTHROMYCIN S OXACILLIN S VANCOMYCIN S 1. ACINETOBACTER BAUMANNII RX AB ------ -- AMPICILLIN/SULBACTAM S CIPROFLOXACIN S GENTAMICIN S TRIMETHOPRIM/SULFAMETHOXAZOLE S 2. STAPH AUREUS RX ABN ------ --- 2. STAPH AUREUS RX AB ------ -- CEFAZOLIN S AMOXICILLIN/CLAVULINIC ACID S AMPICILLIN/SULBACTAM S TETRACYCLINE S TRIMETHOPRIM/SULFAMETHOXAZOLE S AZITHROMYCIN S CLINDAMYCIN S ERYTHROMYCIN S OXACILLIN S VANCOMYCIN S Recent Imaging Studies: XAMINATION: XR PORTABLE CHEST CLINICAL INFORMATION: Intubated. Check tube position. COMPARISON: April 04, 2016 and studies dating back to March 17, 2016. TECHNIQUE: Portable AP view of the chest was obtained. FINDINGS: Endotracheal tube is seen with tip approximately 1.5 cm above the eugenio. There are small lung volumes with left base disease most likely related to atelectasis and possibly small pleural effusion. The cardiopericardial silhouette is upper limits of normal in size. No evidence of pulmonary edema. Nasogastric tube is seen traversing toward the stomach with tip not being identified on this underpenetrated study. Right upper extremity PICC line in place with tip not being visualized due to underpenetration. No pneumothorax. IMPRESSION: Endotracheal tube tip approximately 1.5 cm above the eugenio. Small lung volumes with left base atelectasis. DICTATED BY: JYOTHI MIRANDA MD DATE/TIME DICTATED:04/05/16717 BUFF WHEEL FABRICATOR:PAUL DATE/TIME TRANSCRIBED:04/05/16717 CONFIDENTIAL, DO NOT COPY WITHOUT APPROPRIATE AUTHORIZATION. <Electronically signed in Other Vendor System> SIGNED BY: JYOTHI MIRANDA MD 04/05/16 6263 Assessment/Plan Impression: 1. Ongoing encephalopathy, now with evidence of cerebritis and mastoiditis, no seizures seen on EEG, results consistent with a toxic/metabolic encephalopathy. 2. Acute anemia - may be dilutional, without evidence of active bleeding. 3. Respiratory failure secondary to ventilatory failure - day 11 mechanical ventilation. Lower respiratory culture growing Acinetobacter and staph aureus. Chest x-ray has no evidence of infiltrates (? tracheobronchitis). 4. Malnutrition. 5. Systolic murmur without evidence of endocarditis on TTE and SAMUEL. 6. At risk for VAP; minimal resp secretions; CXR read as atelectasis MRI would be helpful, particularly in evaluating the brain parenchyma, but would require transfer to [place] and per patient's family transfer declined. Status post bilateral myringotomies and tympanostomy tubes by ENT, with ear cultures growing SCN (skin contamination). Suggestion: 1. Neurology follow-up; f/u CT head results 2. Discontinue for now Ceftriaxone 2 g IV every 12 hours. 3. Start Unasyn 3 gm q 6 h; call if fever. 4. Monitor CBC, BMP, lactic acid. Please obtain procalcitonin/ESR level w/ am labs. 3. Repeat CT of the head with IV contrast 04/07; also consider CT chest eval pneumonia (sputum cx+ Acinetobacter/MSSA). 4. Continue for now Ceftriaxone 2 g IV every 12 hours.
--- NOTE | 2016-04-06 11:11 | CT SCAN REPORT ---
EXAMINATION: CT HEAD WITH CONTRAST CLINICAL INFORMATION: Meningitis. Altered mental status. COMPARISON: 04/03/2016. TECHNIQUE: Contiguous helical images of the brain were obtained following the administration of IV contrast. Multiplanar reconstructions were performed. CONTRAST: 94 cc of Optiray 320 were administered without incident. DLP: 601 mGy-cm. FINDINGS: Again identified is gyriform enhancement overlying the high left vertex adjacent to the posterior left parietal lobe. This measures approximately 2.2 cm in greatest dimension, unchanged from prior exam. There is also a stable small focus of enhancement overlying the right posterior parietal lobe on image 191/246. The lateral, third, fourth ventricles are nondilated and concordant with the appearance of the sulci. There is no evidence for acute intraparenchymal hemorrhage or infarct. There is neither mass nor mass effect. The visualized vasculature is unremarkable. There is no shift of midline structures. There is diffuse mucosal thickening to the left maxillary sinus. There is near complete bilateral mastoid opacification. There is mild frontal, sphenoid and ethmoid sinus opacification. There are no osseous lesions. IMPRESSION: Relatively stable appearance of left greater than right vertex/posterior parietal lobe enhancement. There is no adjacent cortical or subcortical edema. As described on the immediate prior report, consider correlation with brain MRI with contrast for further tissue characterization. Paranasal sinus disease. Bilateral mastoid opacification.
--- NOTE | 2016-04-06 12:38 | RADIOLOGY REPORT ---
EXAMINATION: CHEST 1 VIEW CLINICAL INFORMATION: Intubated. COMPARISON: Multiple prior exams are reviewed. The most recent is from 04/05/2016. TECHNIQUE: An AP view of the chest is provided. FINDINGS: The cardiac silhouette is not enlarged. The endotracheal tube is in unchanged position. The tip is approximately 10 mm above the eugenio. The tip of the enteric tube overlies the left upper quadrant, likely within the stomach. The mediastinal and hilar contours are unremarkable. There is retrocardiac opacification present, slightly increased from prior exam. There are no pneumothoraces. The osseous structures are unremarkable. IMPRESSION: Endotracheal tube and enteric tube in place. Retrocardiac opacification likely solar manufacturer's representative of atelectasis or a developing left lower lobe infiltrate.
[2016-04-06 16:00] VITALS: BP 126/74
[2016-04-07] VITALS: BP 116/69
--- NOTE | 2016-04-07 01:25 | NUR ---
NPO AFTER MIDNIGHT, OGT FLUSHED. FREQUENT MOUTH CARE GIVEN, SUCTIONED FREQ SM AMTS WHITE SPUTUM. PT OPENS EYES OCCASIONALLY AND MAKES EYE CONTACT SL MOVEMENT OF HANDS FELT AT TIMES WHEN ASKED TO SQUEEZE, THEN RETUNS TO UNRESPONSIVE STATE.
[2016-04-07 04:45] LABS: ABSOLUTE BASOPHIL COUNT 0 /CUMM (0.0-0.2); ABSOLUTE EOSINOPHIL COUNT 0.1 /CUMM (0.0-0.7); ABSOLUTE GRANULOCYTE CT 3.5 /CUMM (1.4-6.5); ABSOLUTE LYMPH COUNT 1.1 /CUMM (1.2-3.4); ABSOLUTE MONOCYTE COUNT 1.1 /CUMM (0.10-0.60); BASOPHIL % 0.4 % (0.0-2.0); GRANULOCYTE % 60.2 % (42.2-75.2); HEMATOCRIT 29.8 % (37-47); MEAN CORPUSCULAR HGB 28.3 PG (27.0-31.0); MEAN CORPUSCULAR HGB CONC 32.9 G/DL (33.0-37.0); MEAN CORPUSCULAR VOLUME 86.2 FL (81.0-99.0); MEAN PLATELET VOLUME 7.8 FL (7.4-10.4); PLATELET COUNT 217 /CUMM (130-400); RBC DISTRIBUTION WIDTH 14.8 % (11.5-14.5); RED BLOOD CELL CT 3.46 /CUMM (4.20-5.40); WHITE BLOOD CELL COUNT 5.8 /CUMM (4.8-10.8)
--- NOTE | 2016-04-07 07:59 | RADIOLOGY REPORT ---
EXAMINATION: XR PORTABLE CHEST CLINICAL INFORMATION: Intubation COMPARISON: Previous day TECHNIQUE: Portable AP view of the chest was obtained. FINDINGS: The endotracheal tube has been retracted slightly, now lying approximately 1.5 cm above the eugenio. NG tube terminates below the diaphragm. The heart is normal size. Bilateral basilar opacities are consistent with effusions. The left retrocardiac opacity is prominent suggesting underlying atelectasis or consolidation. There is no edema seen. IMPRESSION: Endotracheal tube now terminates 1.5 cm above eugenio. Persistent basilar opacities, especially in left retrocardiac region, likely represent pleural effusions with underlying left lower lobe parenchymal disease.
[2016-04-07 08:00] VITALS: BP 140/80
--- NOTE | 2016-04-07 10:01 | PN- CRCU ---
Subjective HPI/Critical Care Issues: The patient appears much more awake today. She is following commands well. She remains stable on mechanical ventilation. There were no overnight events. Objective Current Medications: Current Medications Sig/Garrick Start time Last Medication Dose Route Stop Time Status Admin Acetaminophen 1,000 MG Q6-PRN PRN 03/17 1630 AC 03/20 N/A 1 UNIT IV 1552 Acyclovir 1 SULEMAN Q5 04/06 1200 AC 04/07 TOP 0837 Ampicillin Sodium/ 3,000 MG Q6 04/06 1212 AC 04/07 Sulbactam Sodium IV 0551 Sodium Chloride 100 ML Ceftriaxone Sodium 2,000 MG BID 04/03 1000 DC 04/06 IV 0933 Ciprofloxacin 4 GTT BID 04/03 1000 AC 04/06 OTIC 04/09 2201 2222 Dexamethasone 4 GTT BID 04/03 1000 AC 04/06 OTIC 04/09 2201 2221 Heparin Sodium 5,000 UNIT Q8 03/25 1400 AC 04/07 (Porcine) SC 0553 Hydralazine HCl 10 MG Q8 PRN 03/23 1315 AC 03/25 IV 0720 Insulin Human Regular 3 UNITS ONCE ONE 04/06 2345 DC 04/07 SC 04/06 2346 0001 Insulin Human Regular 0 Q6 03/17 1800 DC 04/06 SC 1738 Levetiracetam 1,500 MG Q12H 03/28 0600 AC 04/07 Sodium Chloride 100 ML IV 0600 Levothyroxine Sodium 12.5 MCG DAILY 03/19 1000 AC 04/06 IV 1019 Lorazepam 1 MG Q1P PRN 03/25 1100 AC 03/28 IV 2006 Magnesium Sulfate 1 GM ONCE ONE 04/06 0845 DC 04/06 Dextrose/Water 100 ML IV 04/06 1244 0933 Pantoprazole Sodium 40 MG DAILY 03/18 1000 AC 04/06 IV 0933 Polyethylene Glycol 17 GM DAILY PRN 03/31 1215 AC 04/02 PO 0025 Sodium Chloride 1,000 ML Q20H 04/01 0845 AC 04/07 IV 0551 Valproate Sodium 1,000 MG Q8H 03/28 0200 AC 04/07 Sodium Chloride 100 ML IV 0218 Exam General Appearance: minimally responsive, intubated, appears chronically ill Head: atraumatic, normal appearance, lower lip is black and scabbed over Neck: normal inspection, supple Respiratory: no respiratory distress, a few scattered rhonchi are heard Cardiovascular: regular rate/rhythm Abdomen: normal bowel sounds, soft, non-tender Extremities: no edema Skin: intact, normal color, warm/dry Vital Signs & I&O Last 24 Hrs of Vitals and I&O: Vital Signs Date Time Temp Pulse Resp B/P Pulse O2 O2 Flow FiO2 Ox Delivery Rate 04/07 0810 30 04/07 0800 97 Ventilator 30% 04/07 0800 98.7 72 11 140/80 97 Ventilator 30% 04/07 0619 30 04/07 0400 96 Ventilator 30% 04/07 0326 30 04/07 0030 30 04/07 0000 97 Ventilator 30% 04/07 0000 98.7 68 12 116/69 97 Ventilator 30% 04/06 2232 30 04/06 2000 96 Ventilator 30% 04/06 1917 30 04/06 1600 30 04/06 1600 97 Ventilator 30% 04/06 1600 97.9 73 13 126/74 97 Ventilator 30% 04/06 1443 30 04/06 1200 97 Ventilator 30% 04/06 1150 30 Intake & Output 04/07 1600 04/07 0800 04/07 0000 Intake Total 400 1240 Output Total 940 1200 Balance -540 40 Intake, IV 400 570 Intake, Tube 480 Feeding Intake, Tube 190 Irrigant Output, Urine 940 1200 Exam General Appearance: minimally responsive, intubated, appears chronically ill Head: atraumatic, normal appearance, lower lip appears black and scabbed over Neck: normal inspection, supple Respiratory: no respiratory distress, a few scattered rhonchi are heard Cardiovascular: regular rate/rhythm Abdomen: normal bowel sounds, soft, non-tender Extremities: no edema Skin: intact, normal color, warm/dry Results Last 24 Hrs of Lab Results: Laboratory Tests 04/07/16 0415: Anion Gap 5, Estimated GFR > 60, Glucose 147 H, Lactic Acid 1.7, Calcium 8.0 L , Phosphorus 3.5, Magnesium 1.8, Total Bilirubin 0.3, AST 15, ALT 23, Albumin 2.2 L, Prealbumin 10.7 L, CBC w Diff NO MAN DIFF REQ, RBC 3.46 L, MCV 86.2, MCH 28.3, RDW 14.8 H, MPV 7.8, Gran % 60.2, Lymphocytes % 19.4 L, Monocytes % 19.0 H, Eosinophils % 1.0, Basophils % 0.4, Absolute Granulocytes 3.5, Absolute Lymphocytes 1.1 L, Absolute Monocytes 1.1 H, Absolute Eosinophils 0.1, Absolute Basophils 0, PUBS MCHC 32.9 L, ESR Westergren 76 H Diagnostic Data CXR Findings: Endotracheal tube now terminates 1.5 cm above eugenio. Persistent basilar opacities, especially in left retrocardiac region, likely represent pleural effusions with underlying left lower lobe parenchymal disease. Impression/Plan Impression/Plan Impression/Plan: 1. Toxic/metabolic encephalopathy, with ? cerebritis and mastoiditis, no further seizures. 2. Acute anemia - may be dilutional, without evidence of active bleeding. 3. Respiratory failure secondary to ventilatory failure - day 13 mechanical ventilation. Lower respiratory culture growing gram-negative rods and staph aureus. Chest x-ray has no evidence of infiltrates in the patient's oxygenation has been stable. 4. Malnutrition. Recommendations: * Weaning trials today. * Continue normal saline at 50 ML per hour, will bolus as necessary. * Follow up ID and neuro input. * Continue ceftriaxone for mastoiditis. * Continue to follow antiseizure regimen as per neurology. * Continue tubes feeds at goal. Bowel regimen for daily bowel movements. * Continue DVT and GI prophylaxis. * Continue all supportive care for now. * If the patient does not wean, will pursue trach and PEG.
--- NOTE | 2016-04-07 11:47 | PN- Resident CRCU ---
Subjective HPI/CRCU Issues: Patient in ICU for: Strep pneumo meningitis, intubated. Patient seems a much more awake and alert this morning. She was able to open her eyes on command, was was tracking me as a office mover on the room. Additionally she was able to move her arm and leg on command. Note that she does have decreased movement of the right side. Vitals stable overnight. Patient afebrile. No acute overnight events. Objective Vital Signs & I&O Last 8 Hrs of Vitals and I&O: Laboratory Tests 04/07 0415 Chemistry Sodium (137 - 145 mmol/L) 135 L Potassium (3.5 - 5.1 mmol/L) 4.1 Chloride (98 - 107 mmol/L) 98 Carbon Dioxide (22 - 30 mmol/L) 33 H Anion Gap (5 - 16) 5 BUN (7 - 17 mg/dL) 10 Creatinine (0.5 - 1.0 mg/dL) 0.5 Estimated GFR (>60 ml/min) > 60 Glucose (65 - 99 mg/dL) 147 H Lactic Acid (0.7 - 2.1 mmol/L) 1.7 Calcium (8.4 - 10.2 mg/dL) 8.0 L Phosphorus (2.5 - 4.5 mg/dL) 3.5 Magnesium (1.6 - 2.3 mg/dL) 1.8 Total Bilirubin (0.2 - 1.3 mg/dL) 0.3 AST (14 - 36 U/L) 15 ALT (9 - 52 U/L) 23 Albumin (3.5 - 5.0 g/dL) 2.2 L Prealbumin (17.6 - 36.0 mg/dL) 10.7 L Hematology CBC w Diff NO MAN DIFF REQ WBC (4.8 - 10.8 /CUMM) 5.8 RBC (4.20 - 5.40 /CUMM) 3.46 L Hgb (12.0 - 16.0 G/DL) 9.8 L Hct (37 - 47 %) 29.8 L MCV (81.0 - 99.0 FL) 86.2 MCH (27.0 - 31.0 PG) 28.3 RDW (11.5 - 14.5 %) 14.8 H Plt Count (130 - 400 /CUMM) 217 MPV (7.4 - 10.4 FL) 7.8 Gran % (42.2 - 75.2 %) 60.2 Lymphocytes % (20.5 - 51.1 %) 19.4 L Monocytes % (1.7 - 9.3 %) 19.0 H Eosinophils % (0 - 5 %) 1.0 Basophils % (0.0 - 2.0 %) 0.4 Absolute Granulocytes (1.4 - 6.5 /CUMM) 3.5 Absolute Lymphocytes (1.2 - 3.4 /CUMM) 1.1 L Absolute Monocytes (0.10 - 0.60 /CUMM) 1.1 H Absolute Eosinophils (0.0 - 0.7 /CUMM) 0.1 Absolute Basophils (0.0 - 0.2 /CUMM) 0 PUBS MCHC (33.0 - 37.0 G/DL) 32.9 L ESR Westergren (0 - 20 MM) 76 H Vital Signs Date Time Temp Pulse Resp B/P Pulse O2 O2 Flow FiO2 Ox Delivery Rate 04/07 0810 30 04/07 0800 97 Ventilator 30% 04/07 0800 98.7 72 11 140/80 97 Ventilator 30% 04/07 0619 30 04/07 0400 96 Ventilator 30% 04/07 0326 30 04/07 0030 30 04/07 0000 97 Ventilator 30% 04/07 0000 98.7 68 12 116/69 97 Ventilator 30% 04/06 2232 30 04/06 2000 96 Ventilator 30% 04/06 1917 30 04/06 1600 30 04/06 1600 97 Ventilator 30% 04/06 1600 97.9 73 13 126/74 97 Ventilator 30% 04/06 1443 30 04/06 1200 97 Ventilator 30% 04/06 1150 30 Intake & Output 04/07 1600 04/07 0800 04/07 0000 Intake Total 400 1240 Output Total 940 1200 Balance -540 40 Intake, IV 400 570 Intake, Tube 480 Feeding Intake, Tube 190 Irrigant Output, Urine 940 1200 Exam General Appearance: well developed/nourished, intubated Head: atraumatic, normal appearance Ears, Nose, Throat: normal ENT inspection Neck: normal inspection Respiratory: normal breath sounds, no respiratory distress Cardiovascular: regular rate/rhythm, 3/6 SYSTOLIC MURMUR Gastrointestinal: soft, non-tender Extremities: normal inspection, no edema Weaning Parameters NIF: 47 Minute Volume: 5.8 Resp rate: 12 Vt: 499 Heart Rate: 69 Weaning Schedule Start Time: 1114 Minute Volume: 5.7 Resp Rate: 20 Vt: 300 Heart Rate: 79 End Time: 0908 Minute Volume: 10.3 Resp Rate: 35 Vt: 245 Heart Rate: 88 Start Time: 0950 Minute Volume: 7.99 Resp Rate: 29 Vt: 273 Heart Rate: 88 End Time: 1111 Minute Volume: 6.79 Resp Rate: 24 Vt: 475 Heart Rate: 79 IV Drips IV Drips: ivf AT 50 CC Tube feed Nutrition Nutrition: NPO Current Medications: Current Medications Sig/Garrick Start time Last Medication Dose Route Stop Time Status Admin Acetaminophen 1,000 MG Q6-PRN PRN 03/17 1630 AC 03/20 N/A 1 UNIT IV 1552 Acyclovir 1 SULEMAN Q5 04/06 1200 AC 04/12 TOP 2024 Ampicillin Sodium/ 3,000 MG Q6 04/10 1800 AC 04/12 Sulbactam Sodium IV 04/23 0400 1750 Sodium Chloride 100 ML Heparin Sodium 5,000 UNIT Q8 03/25 1400 AC 04/12 (Porcine) SC 1331 Hydralazine HCl 10 MG Q8 PRN 03/23 1315 AC 04/12 IV 1805 Insulin Human Regular 0 Q6 04/08 0600 AC 04/12 SC 1740 Levetiracetam 1,500 MG Q12H 03/28 0600 AC 04/12 Sodium Chloride 100 ML IV 1721 Levothyroxine Sodium 12.5 MCG DAILY 03/19 1000 AC 04/12 IV 0956 Magnesium Sulfate 1 GM ONCE ONE 04/12 0845 DC 04/12 Dextrose/Water 100 ML IV 04/12 1244 0851 Pantoprazole Sodium 40 MG DAILY 03/18 1000 AC 04/12 IV 0957 Polyethylene Glycol 17 GM DAILY PRN 03/31 1215 AC 04/02 PO 0025 Potassium Chloride 10 MEQ ONCE ONE 04/12 0845 DC 04/12 IV 04/12 0846 0851 Potassium Chloride 10 MEQ ONCE ONE 04/12 0845 DC 04/12 IV 04/12 0846 0851 Valproate Sodium 1,000 MG Q8H 03/28 0200 AC 04/12 Sodium Chloride 100 ML IV 1709 Impression/Plan Impression/Problem List Impression: This is a 70 year old female with PMH of hypotension, hyperlipidemia, hypothyroidism DM who came was brought to hospital after being found unresponsive. She had one day of otalgia and difficulty hearing. Found down and unresponsive, subsequently brought to on 03/17/2016. In ED was found to have Tmax 102, AMS/agitation, CT with pneumocephalus in temporal lobe, and opacification of mastoid air cells. Due to concern for bacterial meningitis 2/2 otitis she was admitted to ICU. She has had prolonged ICU stay. Of note, during admission fluoro-guided LP by IR pt had an episode of emesis and likely aspirated. CXR showed corresponding suspicious opacity. She subsequently desatted into the 60s and required BiPAP. Subsequently on March 25 patient had episode of hypertension with BP over 200 systolic, and was satting in the low 60s despite BiPAP. She was intubated; procedure was complicated by cardiopulmonary arrest. Patient was successfully resuscitated. She is currently intubated, off all pressors and hemodynamically stable. Her hospital course has been complicated by: Aspiration pneumonia, periodic hypotension, new- onset seizures, and increasing mastoid opacification treated by bilateral ear tubes. PLAN Respiratory: Pt was intubated on 03/25/2016 because she had long periods of apnea on her blood pressure went up to 200 systolic. While she was being intubated patient went into cardiopulmonary arrest. One round of CPR was done. Patient attained ROSC. Now, pt continues to be intubated but under no sedation. Her respiratory status is stable. We are attempting to wean off trial on 2016. If she remains persistently unable to be extubated plans for trach and PEG later this week * Con't mechanical ventilation * We spoke with family regarding long-term direction of patient's respiratory status. They are on board for trach if necessary * Aspiration precautions. Patient already completed course of Unasyn for aspiration pneumonia during the beginning of her hospital course. Neuro/ID: 1. Step Pneumo Meningitis: Patient has strep pneumo meningitis confirmed by CSF culture and blood culture. Finished 4 day course of Decadron. Initial CSF white count was 28,000 and repeat LP showed white blood cell of only 42 and third LP showed WBC of 14 and 1 RBC. 2x TTEs and one SAMUEL have both been negative for any valvular pathology. Her mental status is now the primary issue; she seems to have a waxing and waning picture. First EEG showed seizure activity and pt was started on antizeizure meds, second EEG negative. Got treated with 14 days of ceftriaxone (stopped on 03/31/2016) and vancomycin intermittently. Vanco given Mar 18- then Mar 25-Mar 28. Note that one culture of her LRC grew staph aureus. negative for MRSA; negative cxr. She was then re- started on ceftriaxone and D/C on 04/06/2013 and started on Unasyn. * Antibiotics are continued for treating mastoid not the meningitis * Continue to monitor mental status 2. Mastoid Opacification: she got bilateral ear tube placement on 04/13/2016 to address the bilateral mastoid opacification seen on CT. Initially, patient had opacification on the left mastoid, repeat CT about a week later showed opacification extending to the right. Initially was concern for continued strep pneumo infection. However, the fluid cultures are negative for any suspicious organism, just growing coag negative staph which is likely contaminant. Repeat CT-head with IV contrast on 04/03 showed no change. On speaking with neuroradiologist there seems to be possibility of a communicating hydrocephalus and she does have some meningeal inflammation. * We will continue Unasyn and per ID, if she becomes hypotensive again, per Dr. Salazar, start IV vancomycin with a goal trough of 15-20. * Daily chest x-ray * Thank you Neuro consult * Thank you ENT consult * Panculture * NOTE! ESR 75 3. New onset Seizures: Patient has new onset seizures which started early a.m. on 03/24/2016. Since then she has had a repeat seizure activity, at least 2 episodes of GTC. The rest seem to be focal, localized to her right arm. EEG about a week ago showed corresponding epileptiform activity in left hemisphere. Pt currently on Keppra and Depakote IV at increased doses. Second EEG negative. * Appreciate Neurology consult * Con't Keppra and Depakote * CT head CVS: Patient had an episode of hypotensionon 04/05/2016, lowest blood pressure recorded was 87/48. She was given 3.5 L of fluids did not respond and subsequently was started on 2.5 g of levothyroxine. She adequately responded blood pressures reaching 120s and 130s systolic. Levophed was turned off. She got a lumbar puncture on 04/04/2016 and was given 1 mg Ativan and propofol for sedation. Likely a combination of the procedure and propofol resulted in hypotension in this fragile patient. Patient is currently hemodynamically stable and off pressors however she continuously ventilated. Note that when patient was first intubated she was started on both Levophed and Rashid-Synephrine. Over a period of days she was able to be weaned off all pressors. * ABG * 2 units PRBC * CBC, ICU bundle, lactic acid, troponin, EKG stat * Normal saline at 50 mL * Strict I's and O's * Measure prealbumin Heme/Onc: Stable. Will con't monitor. Msk: Moving r. side less than left initially. * Consider PT and long-term rehabilitation once patient is more stable and extubated GI: placed Dobbhoff on 03/20. Con't tube feeds. * RISS * Tube feeds * Protonix Con't Synthroid. FULL CODE TUBE FEED CHEM/ALPS DVT PPX Problem List: 1. Meningitis 2. Sepsis 3. Left otitis media 4. Altered mental state 5. Lactic acidosis Pain Ratin Tomorrow's Labs & Rationales: icu cbc Plan DVT/Prophylaxis: pharmacological
--- NOTE | 2016-04-07 11:51 | Transfer of Care Summary ---
Hospital Course Course Hospital Course: This is a 70 year old female with PMH of hypotension, hyperlipidemia, hypothyroidism DM who came was brought to hospital after being found unresponsive. She had one day of otalgia and difficulty hearing. Found down and unresponsive, subsequently brought to on 03/17/2016. In ED was found to have Tmax 102, AMS/agitation, CT with pneumocephalus in temporal lobe, and opacification of mastoid air cells. Due to concern for bacterial meningitis 2/2 otitis she was admitted to ICU. She has had prolonged ICU stay. Of note, during admission fluoro-guided LP by IR pt had an episode of emesis and likely aspirated. CXR showed corresponding suspicious opacity. She subsequently desatted into the 60s and required BiPAP. Subsequently on March 25 patient had episode of hypertension with BP over 200 systolic, and was satting in the low 60s despite BiPAP. She was intubated; procedure was complicated by cardiopulmonary arrest. Patient was successfully resuscitated. She is currently intubated, off all pressors and hemodynamically stable. Her hospital course has been complicated by: Aspiration pneumonia, periodic hypotension, new- onset seizures, and increasing mastoid opacification treated by bilateral ear tubes. PLAN Respiratory: Pt was intubated on 03/25/2016 because she had long periods of apnea on her blood pressure went up to 200 systolic. While she was being intubated patient went into cardiopulmonary arrest. One round of CPR was done. Patient attained ROSC. Now, pt continues to be intubated but under no sedation. Her respiratory status is stable. We are attempting wean off trial on 2016. If she remains persistently unable to be extubated plans for trach and PEG later this week * Con't mechanical ventilation * We spoke with family regarding long-term direction of patient's respiratory status. They are on board for trach if necessary * Aspiration precautions. Patient already completed course of Unasyn for aspiration pneumonia during the beginning of her hospital course. Neuro/ID: 1. Step Pneumo Meningitis: Patient has strep pneumo meningitis confirmed by CSF culture and blood culture. Finished 4 day course of Decadron. Initial CSF white count was 28,000, 2nd LP showed white blood cell of only 42 and third LP showed WBC of 14 and 1 RBC. 2x TTEs and one SAMUEL have both been negative for any valvular pathology. Her mental status is now the primary issue; she seems to have a waxing and waning picture. First EEG showed seizure activity and pt was started on antizeizure meds, second EEG negative. Got treated with 14 days of ceftriaxone (stopped on 03/31/2016) and vancomycin intermittently. Vanco given Mar 18- then Mar 25-Mar 28. Note that one culture of her LRC grew staph aureus. negative for MRSA; negative cxr. Then intermittently started on Ceftriaxone again; on 04/06/2016 pt was started on Unasyn * Antibiotics are continued for treating mastoid not the meningitis * Continue to monitor mental status 2. Mastoid Opacification: she got bilateral ear tube placement on 04/13/2016 to address the bilateral mastoid opacification seen on CT. Initially, patient had opacification on the left mastoid, repeat CT about a week later showed opacification extending to the right. Initially there was concern for continued strep pneumo infection. However, the fluid cultures are negative for any suspicious organism, just growing coag negative staph which is likely contaminant. Repeat CT-head with IV contrast on 04/03 showed no change. On speaking with neuroradiologist there seems to be possibility of a communicating hydrocephalus and she does have some meningeal inflammation. * We will continue Unasyn 3 q6 per ID, if she becomes hypotensive again, per Dr. Salazar, start IV vancomycin with a goal trough of 15-20. * Daily chest x-ray * Thank you Neuro consult * Thank you ENT consult * Panculture * NOTE!! ESR 75 on 04/06/2016 * I sent out for procal on 04/07/2016-FOLLOW UP! 3. New onset Seizures: Patient has new onset seizures which started early a.m. on 03/24/2016. Since then she has had a repeat seizure activity, at least 2 episodes of GTC. The rest seem to be focal, localized to her right arm. EEG showed corresponding epileptiform activity in left hemisphere. Pt currently on Keppra and Depakote IV at increased doses. Second EEG negative. * Appreciate Neurology consult * Con't Keppra and Depakote * CT head CVS: Patient had an episode of hypotensionon 04/05/2016, lowest blood pressure recorded was 87/48. She was given 3.5 L of fluids did not respond and subsequently was started on 2.5 g of levophed. She adequately responded; blood pressures reached 120s and 130s systolic. Levophed was turned off. She got a lumbar puncture on 04/04/2016 and was given 1 mg Ativan and propofol for sedation. Likely a combination of the procedure and propofol resulted in hypotension in this fragile patient. Patient is currently hemodynamically stable and off pressors however she remains on vent. Note that when patient was first intubated she was started on both Levophed and Rashid-Synephrine. Over a period of days she was able to be weaned off all pressors. * ABG-during wean off trial * Normal saline at 50 mL-INCREASE IF NECESSARY * Strict I's and O's Heme/Onc: Stable. Will con't monitor. Msk: Moving r. side less than left initially. * Consider PT and long-term rehabilitation once patient is more stable and extubated GI: placed Dobbhoff on 03/20. Con't tube feeds. * RISS * Tube feeds * Protonix Con't Synthroid. FULL CODE TUBE FEED CHEM/ALPS DVT PPX Assessment/Plan: SEE ABOVE
--- NOTE | 2016-04-07 12:41 | PN- Ear, Nose & Throat ---
Subjective Subjective: F/U AFTER PE TUBE PLACEMENT ON 04-03 MENTAL STATUS STILL AN ISSUE, POSSIBLY MORE ALERT TODAY MINIMAL FLUID FROM LEFT EAR ALL CULTURES FROM EAR NEGATIVE EXCEPT POSSIBLE STAPH CONTAMINANT Objective Vital Signs and I&Os Vital Signs Date Time Temp Pulse Resp B/P Pulse O2 O2 Flow FiO2 Ox Delivery Rate 04/07 1120 30 04/07 0810 30 04/07 0800 97 Ventilator 30% 04/07 0800 98.7 72 11 140/80 97 Ventilator 30% 04/07 0619 30 04/07 0400 96 Ventilator 30% 04/07 0326 30 04/07 0030 30 04/07 0000 97 Ventilator 30% 04/07 0000 98.7 68 12 116/69 97 Ventilator 30% 04/06 2232 30 04/06 1999 96 Ventilator 30% 04/06 1917 30 04/06 1600 30 04/06 1600 97 Ventilator 30% 04/06 1600 97.9 73 13 126/74 97 Ventilator 30% 04/06 1443 30 Intake & Output 04/07 1600 04/07 0800 04/07 0000 04/06 1600 04/06 0800 04/06 0000 Intake Total 400 1240 1310 1070 1070 Output Total 940 1200 1300 1000 555 Balance -540 40 10 70 515 Intake, IV 400 570 610 400 400 Intake, Oral 0 Intake, Tube 480 480 480 480 Feeding Intake, Tube 190 220 190 190 Irrigant Number 1 2 Bowel Movements Output, Urine 940 1200 1300 1000 555 Patient 198 lb Weight Physical Exam: REMAINS INTUBATED IN ICU MORE ALERT OPENED EYES AND SOMEWHAT FOLLOWED COMMAND FOR TURNING HEAD EARS- TUBE IN PLACE BILATERAL SMALL AMOUNT OF FLUID LEFT EAR MASTOIDS NONTENDER Assessment/Plan Assessment/Plan TUBES IN GOOD POSITION AND PATENT BILATERAL CONTINUE WITH MENINGITIS TREATMENT ONCE INFECTION CONTROLLED, AND PATIENT EXTUBATED AND MORE STABLE, WILL NEED FINE CUT CT THROUGH TEMPORAL BONE WILL F/U PRN PATIENT CAN F/U IN MY OFFICE WHENEVER SHE STABILIZES AND IS DISCHARGED THANKS EDNA CARRERO MD, FACS Core Measures/Miscellaneous Venous Thromboembolism VTE Risk Factors: Acute medical illness VTE Contraindications: No Contraindications VTE Prophylaxis Ordered Inpt: Mechanical (ALPS/TEDS) VTE Diagnosis: No VTE Type: NONE VTE Confirmed by (Test): NONE Beta Jonatan Is Beta Jonatan a Home Med? No Antibiotics Is Patient on Antibiotics? Yes Attending MD Review Statement Attending Statement Attending MD Statement: examined this patient, discussed w/nursing
--- NOTE | 2016-04-07 12:54 | PN- Infect Dx ---
Subjective Subjective: No fever. Reported to follows command. Spontaneous cough. Review of Systems Comments: 12 points reviewed as noted, otherwise negative. Objective Last 24 Hrs of Vital Signs/I&O Vital Signs Date Time Temp Pulse Resp B/P Pulse O2 O2 Flow FiO2 Ox Delivery Rate 04/07 1200 94 Ventilator 30% 04/07 1120 30 04/07 0810 30 04/07 0800 97 Ventilator 30% 04/07 0800 98.7 72 11 140/80 97 Ventilator 30% 04/07 0619 30 04/07 0400 96 Ventilator 30% 04/07 0326 30 04/07 0030 30 04/07 0000 97 Ventilator 30% 04/07 0000 98.7 68 12 116/69 97 Ventilator 30% 04/06 2232 30 04/06 2000 96 Ventilator 30% 04/06 1917 30 04/06 1600 30 04/06 1600 97 Ventilator 30% 04/06 1600 97.9 73 13 126/74 97 Ventilator 30% 04/06 1443 30 Intake & Output 04/07 1600 04/07 0800 04/07 0000 Intake Total 400 1240 Output Total 940 1200 Balance -540 40 Intake, IV 400 570 Intake, Tube 480 Feeding Intake, Tube 190 Irrigant Output, Urine 940 1200 Patient 198 lb Weight Physical Exam Other Physical Findings: General Appearance: intubated Neuro: awake, moving extremities Head: atraumatic, normal appearance, ETT in place Neck: normal inspection, supple Respiratory: BS present, diminished bases, no wheezing Cardiovascular: regular rate/rhythm, HERIBERTO LSB 2/6 Abdomen: normal bowel sounds, soft, non-tender, Dominguez cath in place; urine clear Extremities: no edema, R UE PICC line in place w/o erythema Skin: intact, normal color, warm/dry Results Last 24 Hours of Lab Results: Laboratory Tests 04/07 0415 Chemistry Sodium (137 - 145 mmol/L) 135 L Potassium (3.5 - 5.1 mmol/L) 4.1 Chloride (98 - 107 mmol/L) 98 Carbon Dioxide (22 - 30 mmol/L) 33 H Anion Gap (5 - 16) 5 BUN (7 - 17 mg/dL) 10 Creatinine (0.5 - 1.0 mg/dL) 0.5 Estimated GFR (>60 ml/min) > 60 Glucose (65 - 99 mg/dL) 147 H Lactic Acid (0.7 - 2.1 mmol/L) 1.7 Calcium (8.4 - 10.2 mg/dL) 8.0 L Phosphorus (2.5 - 4.5 mg/dL) 3.5 Magnesium (1.6 - 2.3 mg/dL) 1.8 Total Bilirubin (0.2 - 1.3 mg/dL) 0.3 AST (14 - 36 U/L) 15 ALT (9 - 52 U/L) 23 Albumin (3.5 - 5.0 g/dL) 2.2 L Prealbumin (17.6 - 36.0 mg/dL) 10.7 L Hematology CBC w Diff NO MAN DIFF REQ WBC (4.8 - 10.8 /CUMM) 5.8 RBC (4.20 - 5.40 /CUMM) 3.46 L Hgb (12.0 - 16.0 G/DL) 9.8 L Hct (37 - 47 %) 29.8 L MCV (81.0 - 99.0 FL) 86.2 MCH (27.0 - 31.0 PG) 28.3 RDW (11.5 - 14.5 %) 14.8 H Plt Count (130 - 400 /CUMM) 217 MPV (7.4 - 10.4 FL) 7.8 Gran % (42.2 - 75.2 %) 60.2 Lymphocytes % (20.5 - 51.1 %) 19.4 L Monocytes % (1.7 - 9.3 %) 19.0 H Eosinophils % (0 - 5 %) 1.0 Basophils % (0.0 - 2.0 %) 0.4 Absolute Granulocytes (1.4 - 6.5 /CUMM) 3.5 Absolute Lymphocytes (1.2 - 3.4 /CUMM) 1.1 L Absolute Monocytes (0.10 - 0.60 /CUMM) 1.1 H Absolute Eosinophils (0.0 - 0.7 /CUMM) 0.1 Absolute Basophils (0.0 - 0.2 /CUMM) 0 PUBS MCHC (33.0 - 37.0 G/DL) 32.9 L ESR Westergren (0 - 20 MM) 76 H Last 24 Hours of Keaton Results: SPEC #: [id number] MANJEET: 04/04/16 STATUS: COMP RECD: 04/04/[address]: NICCI ALDRICH, KAILA SOURCE: CENT N S ENTR: 04/04/16-[address]: AUSTIN [facility]DRICH[facility] ALESHIA ALDRICH,EILEEN Tatum ORDERED: CSF CULTURE Procedure Result > GRAM STAIN Final 04/05/16-0753 WHITE BLOOD CELLS FEW OTHER NO ORGANISMS SEEN > CSF CULTURE Final 04/07/16-1134 NO GROWTH AFTER 3 DAYS Recent Imaging Studies: ERVICE DATE: 04/06/16 EXAM TYPE: CAT - CT HEAD W IV CONTRAST EXAMINATION: CT HEAD WITH CONTRAST CLINICAL INFORMATION: Meningitis. Altered mental status. COMPARISON: 04/03/2016. TECHNIQUE: Contiguous helical images of the brain were obtained following the administration of IV contrast. Multiplanar reconstructions were performed. CONTRAST: 94 cc of Optiray 320 were administered without incident. DLP: 601 mGy-cm. FINDINGS: Again identified is gyriform enhancement overlying the high left vertex adjacent to the posterior left parietal lobe. This measures approximately 2.2 cm in greatest dimension, unchanged from prior exam. There is also a stable small focus of enhancement overlying the right posterior parietal lobe on image 191/246. The lateral, third, fourth ventricles are nondilated and concordant with the appearance of the sulci. There is no evidence for acute intraparenchymal hemorrhage or infarct. There is neither mass nor mass effect. The visualized vasculature is unremarkable. There is no shift of midline structures. There is diffuse mucosal thickening to the left maxillary sinus. There is near complete bilateral mastoid opacification. There is mild frontal, sphenoid and ethmoid sinus opacification. There are no osseous lesions. IMPRESSION: Relatively stable appearance of left greater than right vertex/posterior parietal lobe enhancement. There is no adjacent cortical or subcortical edema. As described on the immediate prior report, consider correlation with brain MRI with contrast for further tissue characterization. Paranasal sinus disease. Bilateral mastoid opacification. DICTATED BY: DARCI PALMA MD DATE/TIME DICTATED:04/06/161058 CLAM SHUCKING MACHINE TENDER:PAUL DATE/TIME TRANSCRIBED:04/06/161058 SERVICE DATE: 04/07/16-0500 EXAM TYPE: RAD - XRY-PORTABLE CHEST XRAY EXAMINATION: XR PORTABLE CHEST CLINICAL INFORMATION: Intubation COMPARISON: Previous day TECHNIQUE: Portable AP view of the chest was obtained. FINDINGS: The endotracheal tube has been retracted slightly, now lying approximately 1.5 cm above the eugenio. NG tube terminates below the diaphragm. The heart is normal size. Bilateral basilar opacities are consistent with effusions. The left retrocardiac opacity is prominent suggesting underlying atelectasis or consolidation. There is no edema seen. IMPRESSION: Endotracheal tube now terminates 1.5 cm above eugenio. Persistent basilar opacities, especially in left retrocardiac region, likely represent pleural effusions with underlying left lower lobe parenchymal disease. DICTATED BY: MELITON SAINI MD DATE/TIME DICTATED:04/07/16751 CLAM SHUCKING MACHINE TENDER:PAUL DATE/TIME TRANSCRIBED:04/07/16751 Assessment/Plan Impression: 1. Bilateral mastoiditis/sinus dx. Pneumococcal meningitis (treated). 2. Respiratory failure secondary to ventilatory failure (mechanical ventilation ). Lower respiratory culture growing Acinetobacter and Staph aureus. Chest x- ray has no evidence of pneumonia. 3. Elevated ESR 4. Systolic murmur without evidence of endocarditis on TTE and SAMUEL. Suggestion: 1. Neurology follow-up; CT head results noted. 2. Continue Unasyn 3 gm q 6 h D #2; call if fever. 3. F/u pulm recom; SBT planned. 4. Monitor CBC, BMP.
[2016-04-07 15:22] VITALS: BP 130/82
--- NOTE | 2016-04-07 16:10 | NUR ---
PT SON AT BEDSIDE. PT OPENING EYES TO COMMAND AND TURNING HEAD, NODDING YES/NO ABLE TO MOVE HANDS AND ARMS VERY WEAKLY AND BOTH LEGS. PT HAS BEEN NSR 70-80 BP 120-160'S MANUALLY. PT CONTINUES TO INTUBATED, MEC VENTILATED AC 10 450 30 5, 1 HOUR TRIAL SUSTAINED ON PS OF 6. PT TF WAS ON HOLD FOR PENDING TRACH/PEG TUBE PLACEMENT. PROCEDURE ON HOLD. TF RESTARTED AT GOAL. ABDOMEN REMAINS SOFT, W +BS. SIMMONS INSITU. 2400 ML CLR YELLOW URINE/8 HOURS. PT HAS BUE +1 EDEMA. LIP TX WITH ZOVIRAX. ALPS ON. PT ON SUB Q HEPARIN. PT REMAINS ON IV ABX AND ANTI-EPILEPTICS AND NS IVF AT 50ML/HR.
--- NOTE | 2016-04-07 19:01 | NUR ---
PT STARTED TRIAL ON PS 8 AT 1700, REMAINS ON TRIAL. TOLERATING WELL. APPEARS COMFORTABLE. VSS.
[2016-04-08] VITALS: BP 148/78
[2016-04-08 05:23] LABS: ABSOLUTE BASOPHIL COUNT 0 /CUMM (0.0-0.2); ABSOLUTE EOSINOPHIL COUNT 0 /CUMM (0.0-0.7); ABSOLUTE GRANULOCYTE CT 4.1 /CUMM (1.4-6.5); ABSOLUTE LYMPH COUNT 1.3 /CUMM (1.2-3.4); ABSOLUTE MONOCYTE COUNT 1.3 /CUMM (0.10-0.60); BASOPHIL % 0.5 % (0.0-2.0); EOSINOPHIL % 0.6 % (0-5); GRANULOCYTE % 60.8 % (42.2-75.2); HEMATOCRIT 33.4 % (37-47); MEAN CORPUSCULAR HGB 28.5 PG (27.0-31.0); MEAN CORPUSCULAR HGB CONC 33.2 G/DL (33.0-37.0); MEAN CORPUSCULAR VOLUME 85.8 FL (81.0-99.0); MEAN PLATELET VOLUME 7.8 FL (7.4-10.4); PLATELET COUNT 254 /CUMM (130-400); RBC DISTRIBUTION WIDTH 14.8 % (11.5-14.5); RED BLOOD CELL CT 3.89 /CUMM (4.20-5.40); WHITE BLOOD CELL COUNT 6.7 /CUMM (4.8-10.8)
--- NOTE | 2016-04-08 06:56 | PN- Resident CRCU ---
Subjective HPI/CRCU Issues: Patient denies she for Streptococcus pneumoniae meningitis, intubation and mechanical ventilation. I followed up and examined the patient today. She is laying in her bed, condition unchanged since yesterday. She was intubated and is minimally responsive. She does understand and watch her head, and agrees that she needs to be off the ventilator whenever she can by raising her fingers to say "yes". She tolerated 2 hours of relief trial yesterday, but could not tolerate any further so was put back on ventilation. Awaiting a ventilation weaning trial again today. Vitals have been stable, no changes, no overnight issues. Objective Vital Signs & I&O Last 8 Hrs of Vitals and I&O: ... Exam General Appearance: well developed/nourished, intubated, obese, drowsy Head: lower lip has wound, crusted, no change from yesterday Ears, Nose, Throat: normal pharynx, normal ENT inspection Neck: normal inspection Respiratory: no respiratory distress, on ventilator with intubation Cardiovascular: regular rate/rhythm Gastrointestinal: normal bowel sounds, soft Extremities: normal inspection, normal capillary refill, no change from yesterday Weaning Parameters NIF: 51 Minute Volume: 5.33 Resp rate: 20 Vt: 265 Heart Rate: 85 Weaning Schedule Start Time: 1700 Minute Volume: 5.73 Resp Rate: 18 Vt: 315 Heart Rate: 80 End Time: 1910 Minute Volume: 5.86 Resp Rate: 23 Vt: 250 Heart Rate: 72 Start Time: 0950 Minute Volume: 7.99 Resp Rate: 29 Vt: 273 Heart Rate: 88 End Time: 1111 Minute Volume: 6.79 Resp Rate: 24 Vt: 475 Heart Rate: 79 Nutrition Nutrition: tube feeding Current Medications: Current Medications Sig/Garrick Start time Last Medication Dose Route Stop Time Status Admin Acetaminophen 1,000 MG Q6-PRN PRN 03/17 1630 AC 03/20 N/A 1 UNIT IV 1552 Acyclovir 1 SULEMAN Q5 04/06 1200 AC 04/08 TOP 0810 Ampicillin Sodium/ 3,000 MG Q6 04/06 1212 AC 04/08 Sulbactam Sodium IV 0525 Sodium Chloride 100 ML Ciprofloxacin 4 GTT BID 04/03 1000 AC 04/07 OTIC 04/09 2201 2138 Dexamethasone 4 GTT BID 04/03 1000 AC 04/07 OTIC 04/09 2201 2137 Heparin Sodium 5,000 UNIT Q8 03/25 1400 AC 04/08 (Porcine) SC 0525 Hydralazine HCl 10 MG Q8 PRN 03/23 1315 AC 03/25 IV 0720 Insulin Human Regular 0 Q6 04/08 0600 AC 04/08 SC 0528 Levetiracetam 1,500 MG Q12H 03/28 0600 AC 04/08 Sodium Chloride 100 ML IV 0609 Levothyroxine Sodium 12.5 MCG DAILY 03/19 1000 AC 04/07 IV 1050 Lorazepam 1 MG Q1P PRN 03/25 1100 DC 03/28 IV 2006 Pantoprazole Sodium 40 MG DAILY 03/18 1000 AC 04/07 IV 1050 Polyethylene Glycol 17 GM DAILY PRN 03/31 1215 AC 04/02 PO 0025 Sodium Chloride 1,000 ML Q20H 04/01 0845 AC 04/07 IV 1047 Valproate Sodium 1,000 MG Q8H 03/28 0200 AC 04/08 Sodium Chloride 100 ML IV 0141 CXR Findings: CXR from 04/07/16: IMPRESSION: No acute findings identified. DICTATED BY: RORY CARLSON MD DATE/TIME DICTATED:04/08/16314 EMR TRAINER:PAUL DATE/TIME TRANSCRIBED:04/08/16314 CXR from 04/08/16 not done yet. Impression/Plan Impression/Problem List Impression: This is a 70 year old female with PMH of hypotension, hyperlipidemia, hypothyroidism DM who came was brought to hospital after being found unresponsive. She had one day of otalgia and difficulty hearing. Found down and unresponsive, subsequently brought to on 03/17/2016. In ED was found to have Tmax 102, AMS/agitation, CT with pneumocephalus in temporal lobe, and opacification of mastoid air cells. Due to concern for bacterial meningitis 2/2 otitis she was admitted to ICU. She has had prolonged ICU stay. Of note, during admission fluoro-guided LP by IR pt had an episode of emesis and likely aspirated. CXR showed corresponding suspicious opacity. She subsequently desatted into the 60s and required BiPAP. Subsequently on March 25 patient had episode of hypertension with BP over 200 systolic, and was satting in the low 60s despite BiPAP. She was intubated; procedure was complicated by cardiopulmonary arrest. Patient was successfully resuscitated. She is currently intubated, off all pressors and hemodynamically stable. Her hospital course has been complicated by: Aspiration pneumonia, periodic hypotension, new- onset seizures, and increasing mastoid opacification treated by bilateral ear tubes. She is being managed in the intensive care unit for the following issues: Respiratory: Pt was intubated on 03/25/2016 because she had long periods of apnea on her blood pressure went up to 200 systolic. While she was being intubated patient went into cardiopulmonary arrest. One round of CPR was done. Patient attained ROSC. Now, pt continues to be intubated but under no sedation. Her respiratory status is stable. Today, she failed the ventilator weaning trial by getting 20 second apnea when the ventilator got activated automatically. * Follow-up with surgery regarding evaluation for tracheostomy and bag * Con't mechanical ventilation * We spoke with family regarding long-term direction of patient's respiratory status. They are on board for trach if necessary * Aspiration precautions. Patient already completed course of Unasyn for aspiration pneumonia during the beginning of her hospital course. * Today is day 3 of Unasyn IV, and she has not spiked fever and her vitals have been stable except for resp status. Neuro/ID: 1. Step Pneumo Meningitis: Patient has strep pneumo meningitis confirmed by CSF culture and blood culture. Finished 4 day course of Decadron. Initial CSF white count was 28,000 and repeat LP showed white blood cell of only 42 and third LP showed WBC of 14 and 1 RBC. 2x TTEs and one SAMUEL have both been negative for any valvular pathology. Her mental status is now the primary issue; she seems to have a waxing and waning picture. First EEG showed seizure activity and pt was started on antizeizure meds, second EEG negative. Got treated with 14 days of ceftriaxone (stopped on 03/31/2016) and vancomycin intermittently. Vanco given Mar 18- then Mar 25-Mar 28. Note that one culture of her LRC grew staph aureus. negative for MRSA; negative cxr. She was then re- started on ceftriaxone and D/C on 04/06/2013 and started on Unasyn on 04/06/16 * Antibiotics are continued for treating mastoid not the meningitis * Continue to monitor mental status 2. Mastoid Opacification: she got bilateral ear tube placement on 04/13/2016 to address the bilateral mastoid opacification seen on CT. Initially, patient had opacification on the left mastoid, repeat CT about a week later showed opacification extending to the right. Initially was concern for continued strep pneumo infection. However, the fluid cultures are negative for any suspicious organism, just growing coag negative staph which is likely contaminant. Repeat CT-head with IV contrast on 04/03 showed no change. On speaking with neuroradiologist there seems to be possibility of a communicating hydrocephalus and she does have some meningeal inflammation. * We will continue Unasyn and per ID, if she becomes hypotensive again, per Dr. Salazar, start IV vancomycin with a goal trough of 15-20. * Daily chest x-ray * Thank you Neuro consult * Thank you ENT consult * Panculture * NOTE! ESR 75 3. New onset Seizures: Patient has new onset seizures which started early a.m. on 03/24/2016. Since then she has had a repeat seizure activity, at least 2 episodes of GTC. The rest seem to be focal, localized to her right arm. EEG about a week ago showed corresponding epileptiform activity in left hemisphere. Pt currently on Keppra and Depakote IV at increased doses. Second EEG negative. * Appreciate Neurology consult * Con't Keppra and Depakote * CT head done, does not show acute changes CVS: Patient had an episode of hypotensionon 04/05/2016, lowest blood pressure recorded was 87/48. She was given 3.5 L of fluids did not respond and subsequently was started on 2.5 g of levothyroxine. She adequately responded blood pressures reaching 120s and 130s systolic. Levophed was turned off. She got a lumbar puncture on 04/04/2016 and was given 1 mg Ativan and propofol for sedation. Likely a combination of the procedure and propofol resulted in hypotension in this fragile patient. Patient is currently hemodynamically stable and off pressors however she continuously ventilated. Note that when patient was first intubated she was started on both Levophed and Rashid-Synephrine. Over a period of days she was able to be weaned off all pressors. * Normal saline at 50 mL * Strict I's and O's * Measure prealbumin Heme/Onc: Stable. Will con't monitor. Msk: Moving r. side less than left initially. * Consider PT and long-term rehabilitation once patient is more stable and extubated GI: placed Dobbhoff on 03/20. Con't tube feeds. * RISS * Tube feeds * Protonix Con't Synthroid. FULL CODE TUBE FEED CHEM/ALPS DVT PPX Problem List: 1. Sepsis 2. Meningitis 3. Altered mental state 4. Dependence on ventilator, status Pain Ratin Pain Goal: Remain pain free Pain Plan: in place Tomorrow's Labs & Rationales: CXR, ICU bundle, CBC Plan DVT/Prophylaxis: pharmacological
[2016-04-08 08:00] VITALS: BP 160/80
--- NOTE | 2016-04-08 09:04 | PN- CRCU ---
Subjective HPI/Critical Care Issues: The patient continues to be lethargic but is opening her eyes spontaneously and moving all extremities. She trialed well for 2 hours last evening and had an excellent parameters. She remains hemodynamically stable and afebrile. Overall , she continues to improve. Objective Current Medications: Current Medications Sig/Garrick Start time Last Medication Dose Route Stop Time Status Admin Acetaminophen 1,000 MG Q6-PRN PRN 03/17 1630 AC 03/20 N/A 1 UNIT IV 1552 Acyclovir 1 SULEMAN Q5 04/06 1200 AC 04/08 TOP 0810 Ampicillin Sodium/ 3,000 MG Q6 04/06 1212 AC 04/08 Sulbactam Sodium IV 0525 Sodium Chloride 100 ML Ciprofloxacin 4 GTT BID 04/03 1000 AC 04/07 OTIC 04/09 2201 2138 Dexamethasone 4 GTT BID 04/03 1000 AC 04/07 OTIC 04/09 2201 2137 Heparin Sodium 5,000 UNIT Q8 03/25 1400 AC 04/08 (Porcine) SC 0525 Hydralazine HCl 10 MG Q8 PRN 03/23 1315 AC 03/25 IV 0720 Insulin Human Regular 0 Q6 04/08 0600 AC 04/08 SC 0528 Levetiracetam 1,500 MG Q12H 03/28 0600 AC 04/08 Sodium Chloride 100 ML IV 0609 Levothyroxine Sodium 12.5 MCG DAILY 03/19 1000 AC 04/07 IV 1050 Lorazepam 1 MG Q1P PRN 03/25 1100 DC 03/28 IV 2006 Pantoprazole Sodium 40 MG DAILY 03/18 1000 AC 04/07 IV 1050 Polyethylene Glycol 17 GM DAILY PRN 03/31 1215 AC 04/02 PO 0025 Sodium Chloride 1,000 ML Q20H 04/01 0845 AC 04/07 IV 1047 Valproate Sodium 1,000 MG Q8H 03/28 0200 AC 04/08 Sodium Chloride 100 ML IV 0141 Vital Signs & I&O Last 24 Hrs of Vitals and I&O: Vital Signs Date Time Temp Pulse Resp B/P Pulse O2 O2 Flow FiO2 Ox Delivery Rate 04/08 08 97 Ventilator 30% 04/08 08 98.3 80 12 160/80 97 Ventilator 30% 04/08 0651 30 04/08 0441 30 04/08 0400 97 Ventilator 30% 04/08 0023 30 04/08 0000 98 Ventilator 30% 04/08 0000 98.9 73 11 148/78 97 Ventilator 30% 04/07 2247 30 04/07 1999 98 Ventilator 30% 04/07 1910 30 04/07 1700 30 04/07 1600 94 Ventilator 30% 04/07 1522 97.9 86 10 130/82 95 Ventilator 30% 04/07 1414 30 04/07 1200 94 Ventilator 30% 04/07 1120 30 Intake & Output 04/08 1600 04/08 0800 04/08 0000 Intake Total 1360.8 1325 Output Total 1750 1500 Balance -389.2 -175 Intake, IV 704.8 655 Intake, Oral 0 0 Intake, Other 190 190 Intake, Tube 466 480 Feeding Number 2 2 Bowel Movements Output, Urine 1750 1500 Exam General Appearance: lethargic, intubated Head: atraumatic, normal appearance, lower lip appears black and scabbed over Neck: normal inspection, supple Respiratory: no respiratory distress, a few scattered rhonchi are heard Cardiovascular: regular rate/rhythm Abdomen: normal bowel sounds, soft, non-tender Extremities: no edema Skin: intact, normal color, warm/dry Results Last 24 Hrs of Lab Results: Laboratory Tests 04/08/16 0411: Anion Gap 9, Estimated GFR > 60, Glucose 180 H, Calcium 8.3 L, Phosphorus 3.5, Magnesium 1.7, Total Bilirubin 0.3, AST 20, ALT 23, Albumin 2.4 L, CBC w Diff NO MAN DIFF REQ, RBC 3.89 L, MCV 85.8, MCH 28.5, RDW 14.8 H, MPV 7.8, Gran % 60.8, Lymphocytes % 19.5 L, Monocytes % 18.6 H, Eosinophils % 0.6, Basophils % 0.5, Absolute Granulocytes 4.1, Absolute Lymphocytes 1.3, Absolute Monocytes 1.3 H, Absolute Eosinophils 0, Absolute Basophils 0, PUBS MCHC 33.2 Impression/Plan Impression/Plan Impression/Plan: 1. Toxic/metabolic encephalopathy, with ? cerebritis and mastoiditis, no further seizures. 2. Acute anemia - may be dilutional, without evidence of active bleeding. 3. Respiratory failure secondary to ventilatory failure - day 14 mechanical ventilation. The patient did well with weaning trials yesterday and we will continue to pursue possible weaning to extubation as her mental status continues to improve. 4. Malnutrition. Recommendations: * Weaning trials today, we'll consider extubation if the patient does well. * Continue normal saline at 50 ML per hour, will bolus as necessary. * Follow up ID and neuro input. * Continue Unasyn for mastoiditis. * Continue to follow antiseizure regimen as per neurology. * Continue tubes feeds at goal. Bowel regimen for daily bowel movements. * Continue DVT and GI prophylaxis. * Continue all supportive care for now. * If the patient does not wean, will pursue trach and PEG.
--- NOTE | 2016-04-08 11:36 | RADIOLOGY REPORT ---
EXAMINATION: XR PORTABLE CHEST CLINICAL INFORMATION: Intubated COMPARISON: CXR, 04/07/2016 TECHNIQUE: Portable AP view of the chest was obtained. FINDINGS: Endotracheal tube is in satisfactory position at 2.3 cm above the eugenio. Enteric tube extends below the diaphragm, into the stomach and beyond the [id number]. No pneumothorax or pneumomediastinum. Cardiac silhouette remains normal in size. There is no acute pulmonary edema. The persistent hazy opacity in the medial right lung base is likely atelectasis. The opacification of the retrocardiac region of the left lower lobe is unchanged. The left costophrenic sulcus is indistinct, suggestive of a trace pleural effusion. IMPRESSION: 1. Endotracheal tube in satisfactory position at 2.3 cm above the eugenio. 2. No significant interval change in left lower lobe opacity (from consolidation and/or atelectasis). 3. Trace left pleural effusion.
--- NOTE | 2016-04-08 13:37 | PN- Infect Dx ---
Subjective Subjective: No fever; SBT earlier today for 2 h; apneic episode; remains intubated Review of Systems Comments: 10 points reviewed as noted, otherwise negative. Objective Last 24 Hrs of Vital Signs/I&O Vital Signs Date Time Temp Pulse Resp B/P Pulse O2 O2 Flow FiO2 Ox Delivery Rate 04/08 1210 30 04/08 1200 95 Ventilator 30% 04/08 0815 30 04/08 0800 97 Ventilator 30% 04/08 0800 98.3 80 12 160/80 97 Ventilator 30% 04/08 0651 30 04/08 0441 30 04/08 0400 97 Ventilator 30% 04/08 0023 30 04/08 0000 98 Ventilator 30% 04/08 0000 98.9 73 11 148/78 97 Ventilator 30% 04/07 2247 30 04/07 2000 98 Ventilator 30% 04/07 1910 30 04/07 1700 30 04/07 1600 94 Ventilator 30% 04/07 1522 97.9 86 10 130/82 95 Ventilator 30% 04/07 1414 30 Intake & Output 04/08 1600 04/08 0800 04/08 0000 Intake Total 1360.8 1325 Output Total 1750 1500 Balance -389.2 -175 Intake, IV 704.8 655 Intake, Oral 0 0 Intake, Other 190 190 Intake, Tube 466 480 Feeding Number 2 2 Bowel Movements Output, Urine 1750 1500 Patient 190 lb Weight Physical Exam Other Physical Findings: General Appearance: intubated Neuro: awake, moving extremities Head: atraumatic, normal appearance, ETT in place, lower lip w/ black scab Neck: normal inspection, supple Respiratory: BS present, diminished bases, no wheezing Cardiovascular: regular rate/rhythm, HERIBERTO LSB 2/6 Abdomen: normal bowel sounds, soft, non-tender, Dominguez cath in place; urine clear Extremities: no edema, R UE PICC line in place w/o erythema Skin: intact, normal color, warm/dry Results Last 24 Hours of Lab Results: Laboratory Tests 04/08 410 Chemistry Sodium (137 - 145 mmol/L) 137 Potassium (3.5 - 5.1 mmol/L) 4.1 Chloride (98 - 107 mmol/L) 97 L Carbon Dioxide (22 - 30 mmol/L) 31 H Anion Gap (5 - 16) 9 BUN (7 - 17 mg/dL) 12 Creatinine (0.5 - 1.0 mg/dL) 0.6 Estimated GFR (>60 ml/min) > 60 Glucose (65 - 99 mg/dL) 180 H Calcium (8.4 - 10.2 mg/dL) 8.3 L Phosphorus (2.5 - 4.5 mg/dL) 3.5 Magnesium (1.6 - 2.3 mg/dL) 1.7 Total Bilirubin (0.2 - 1.3 mg/dL) 0.3 AST (14 - 36 U/L) 20 ALT (9 - 52 U/L) 23 Albumin (3.5 - 5.0 g/dL) 2.4 L Hematology CBC w Diff NO MAN DIFF REQ WBC (4.8 - 10.8 /CUMM) 6.7 RBC (4.20 - 5.40 /CUMM) 3.89 L Hgb (12.0 - 16.0 G/DL) 11.1 L Hct (37 - 47 %) 33.4 L MCV (81.0 - 99.0 FL) 85.8 MCH (27.0 - 31.0 PG) 28.5 RDW (11.5 - 14.5 %) 14.8 H Plt Count (130 - 400 /CUMM) 254 MPV (7.4 - 10.4 FL) 7.8 Gran % (42.2 - 75.2 %) 60.8 Lymphocytes % (20.5 - 51.1 %) 19.5 L Monocytes % (1.7 - 9.3 %) 18.6 H Eosinophils % (0 - 5 %) 0.6 Basophils % (0.0 - 2.0 %) 0.5 Absolute Granulocytes (1.4 - 6.5 /CUMM) 4.1 Absolute Lymphocytes (1.2 - 3.4 /CUMM) 1.3 Absolute Monocytes (0.10 - 0.60 /CUMM) 1.3 H Absolute Eosinophils (0.0 - 0.7 /CUMM) 0 Absolute Basophils (0.0 - 0.2 /CUMM) 0 PUBS MCHC (33.0 - 37.0 G/DL) 33.2 Last 24 Hours of Keaton Results: SPEC #: [id number] MANJEET: 04/04/16 STATUS: RES RECD: 04/04/[address]: KAILA GRJAEDA MD SOURCE: [facility] ENTR: 04/04/16-[address] [facility] [address]: Talisha AVILA MD SPDESC: CSF ALESHIA ALDRICH,EILEEN Tatum ORDERED: FUNGAL CULT INV Procedure Result FUNGUS CULTURE - PENDING Recent Imaging Studies: AM TYPE: RAD - XRY-PORTABLE CHEST XRAY EXAMINATION: XR PORTABLE CHEST CLINICAL INFORMATION: Intubated COMPARISON: CXR, 04/07/2016 TECHNIQUE: Portable AP view of the chest was obtained. FINDINGS: Endotracheal tube is in satisfactory position at 2.3 cm above the eugenio. Enteric tube extends below the diaphragm, into the stomach and beyond the [id number]. No pneumothorax or pneumomediastinum. Cardiac silhouette remains normal in size. There is no acute pulmonary edema. The persistent hazy opacity in the medial right lung base is likely atelectasis. The opacification of the retrocardiac region of the left lower lobe is unchanged. The left costophrenic sulcus is indistinct, suggestive of a trace pleural effusion. IMPRESSION: 1. Endotracheal tube in satisfactory position at 2.3 cm above the eugenio. 2. No significant interval change in left lower lobe opacity (from consolidation and/or atelectasis). 3. Trace left pleural effusion. DICTATED BY: RAY VU MD DATE/TIME DICTATED:04/08/161128 FIELD ADJUSTER:PAUL DATE/TIME TRANSCRIBED:04/08/161128 Assessment/Plan Impression: 1. Bilateral mastoiditis/sinus dx. Pneumococcal meningitis (treated). 2. Respiratory failure 3. Elevated ESR 4. Systolic murmur without evidence of endocarditis on TTE and SAMUEL. Suggestion: 1. Neurology follow-up; CT head results noted. 2. Continue Unasyn 3 gm q 6 h D #3; call if fever. 3. F/u pulm recom; SBT planned. 4. Monitor CBC, BMP. HSV DNA PCR in CSF still pending; f/u results.
[2016-04-08 16:00] VITALS: BP 149/80
--- NOTE | 2016-04-08 17:20 | PN- Neurology ---
Subjective Subjective: 70 year old with penumococcal meningitis and subsequent seizures. Seizures now controlled. Improvement in mental status. EEG negative for seizures. Review of Systems: no change. Objective Vital Signs and I&Os Vital Signs Date Time Temp Pulse Resp B/P Pulse O2 O2 Flow FiO2 Ox Delivery Rate 04/08 1600 97.7 74 13 149/80 95 Ventilator 30% 04/08 1554 30 04/08 1430 30 04/08 1210 30 04/08 1200 95 Ventilator 30% 04/08 0815 30 04/08 0800 97 Ventilator 30% 04/08 0800 98.3 80 12 160/80 97 Ventilator 30% 04/08 0651 30 04/08 0441 30 04/08 0400 97 Ventilator 30% 04/08 0023 30 04/08 0000 98 Ventilator 30% 04/08 0000 98.9 73 11 148/78 97 Ventilator 30% 04/07 2247 30 04/07 2000 98 Ventilator 30% 04/07 1910 30 Intake & Output 04/08 1600 04/08 0800 04/08 0000 04/07 1600 04/07 0800 04/07 0000 Intake Total 834 1360.8 1325 583 817 6222 Output Total 1700 1750 1500 2400 940 1200 Balance -866 -389.2 -175 -1880 -540 40 Intake, IV 400 704.8 655 520 400 570 Intake, Oral 0 0 0 Intake, Other 190 190 Intake, Tube 434 466 480 480 Feeding Intake, Tube 190 Irrigant Number 1 2 2 0 Bowel Movements Output, Urine 1700 1750 1500 2400 940 1200 Patient 190 lb 198 lb Weight Physical Exam: Open eyes to call of her name. EOMI, VIRAL, no nystagmus. No facial droop. Restrained and intubated. Does not follow commands to move limbs. Current Medications: Current Medications Sig/Garrick Start time Last Medication Dose Route Stop Time Status Admin Acetaminophen 1,000 MG Q6-PRN PRN 03/17 1630 AC 03/20 N/A 1 UNIT IV 1552 Acyclovir 1 SULEMAN Q5 04/06 1200 AC 04/08 TOP 1607 Ampicillin Sodium/ 3,000 MG Q6 04/06 1212 AC 04/08 Sulbactam Sodium IV 1154 Sodium Chloride 100 ML Ciprofloxacin 4 GTT BID 04/03 1000 AC 04/08 OTIC 04/09 2201 0935 Dexamethasone 4 GTT BID 04/03 1000 AC 04/08 OTIC 04/09 2201 0935 Heparin Sodium 5,000 UNIT Q8 03/25 1400 AC 04/08 (Porcine) SC 1453 Hydralazine HCl 10 MG Q8 PRN 03/23 1315 AC 03/25 IV 0720 Insulin Human Regular 0 Q6 04/08 0600 AC 04/08 SC 1153 Levetiracetam 1,500 MG Q12H 03/28 0600 AC 04/08 Sodium Chloride 100 ML IV 0609 Levothyroxine Sodium 12.5 MCG DAILY 03/19 1000 AC 04/08 IV 0936 Pantoprazole Sodium 40 MG DAILY 03/18 1000 AC 04/08 IV 0935 Polyethylene Glycol 17 GM DAILY PRN 03/31 1215 AC 04/02 PO 0025 Sodium Chloride 1,000 ML Q20H 04/01 0845 AC 04/08 IV 1450 Valproate Sodium 1,000 MG Q8H 03/28 0200 AC 04/08 Sodium Chloride 100 ML IV 0935 Results Last 24 Hours of Lab Results: Laboratory Tests 04/08 0411 Chemistry Sodium (137 - 145 mmol/L) 137 Potassium (3.5 - 5.1 mmol/L) 4.1 Chloride (98 - 107 mmol/L) 97 L Carbon Dioxide (22 - 30 mmol/L) 31 H Anion Gap (5 - 16) 9 BUN (7 - 17 mg/dL) 12 Creatinine (0.5 - 1.0 mg/dL) 0.6 Estimated GFR (>60 ml/min) > 60 Glucose (65 - 99 mg/dL) 180 H Calcium (8.4 - 10.2 mg/dL) 8.3 L Phosphorus (2.5 - 4.5 mg/dL) 3.5 Magnesium (1.6 - 2.3 mg/dL) 1.7 Total Bilirubin (0.2 - 1.3 mg/dL) 0.3 AST (14 - 36 U/L) 20 ALT (9 - 52 U/L) 23 Albumin (3.5 - 5.0 g/dL) 2.4 L Hematology CBC w Diff NO MAN DIFF REQ WBC (4.8 - 10.8 /CUMM) 6.7 RBC (4.20 - 5.40 /CUMM) 3.89 L Hgb (12.0 - 16.0 G/DL) 11.1 L Hct (37 - 47 %) 33.4 L MCV (81.0 - 99.0 FL) 85.8 MCH (27.0 - 31.0 PG) 28.5 RDW (11.5 - 14.5 %) 14.8 H Plt Count (130 - 400 /CUMM) 254 MPV (7.4 - 10.4 FL) 7.8 Gran % (42.2 - 75.2 %) 60.8 Lymphocytes % (20.5 - 51.1 %) 19.5 L Monocytes % (1.7 - 9.3 %) 18.6 H Eosinophils % (0 - 5 %) 0.6 Basophils % (0.0 - 2.0 %) 0.5 Absolute Granulocytes (1.4 - 6.5 /CUMM) 4.1 Absolute Lymphocytes (1.2 - 3.4 /CUMM) 1.3 Absolute Monocytes (0.10 - 0.60 /CUMM) 1.3 H Absolute Eosinophils (0.0 - 0.7 /CUMM) 0 Absolute Basophils (0.0 - 0.2 /CUMM) 0 PUBS MCHC (33.0 - 37.0 G/DL) 33.2 Recent Imaging Studies: NCHCT>>> IMPRESSION: Relatively stable appearance of left greater than right vertex/posterior parietal lobe enhancement. There is no adjacent cortical or subcortical edema. As described on the immediate prior report, consider correlation with brain MRI with contrast for further tissue characterization Assessment/Plan Assessment: 70 year old with pneumococcal meningitis ad seizures. Now with improved mental status and no seizures. Imaging still shows a high left parietal vertex enhancing collection - I suspect an empyema over the rebecca matter. Plan: Would need coronal and saggital cuts on CT with contrast or even better MRI with contrast to determine the etiology and exact locatio of enhancement.
[2016-04-08 23:42] VITALS: BP 150/78
--- NOTE | 2016-04-09 01:20 | NUR ---
PT BP HAS BEEN STEADILY INCREASING SINCE YESTERDAY, AUTO CUFF RANGING FROM 140'S TO 170'S, MANUALY 150'S TO 170'S. RECENT MANAUAL 178/90 HR 80 NOTIFIED MD KAILA GRAJEDA #[id number]. PER WILL START HALF HER HOME MED ILANAARTAAMaria M 50MG AND REEVALUATE.
[2016-04-09 04:37] LABS: ABSOLUTE BASOPHIL COUNT 0 /CUMM (0.0-0.2); ABSOLUTE EOSINOPHIL COUNT 0 /CUMM (0.0-0.7); ABSOLUTE GRANULOCYTE CT 4.7 /CUMM (1.4-6.5); ABSOLUTE LYMPH COUNT 1.5 /CUMM (1.2-3.4); ABSOLUTE MONOCYTE COUNT 1.8 /CUMM (0.10-0.60); BASOPHIL % 0.4 % (0.0-2.0); EOSINOPHIL % 0.1 % (0-5); GRANULOCYTE % 58.6 % (42.2-75.2); HEMATOCRIT 34.6 % (37-47); MEAN CORPUSCULAR HGB 28.6 PG (27.0-31.0); MEAN CORPUSCULAR VOLUME 86.5 FL (81.0-99.0); PLATELET COUNT 297 /CUMM (130-400); RBC DISTRIBUTION WIDTH 14.9 % (11.5-14.5)
[2016-04-09 04:45] LABS: PT 14.4 SEC (9.4-12.5)
--- NOTE | 2016-04-09 07:52 | PN- Resident CRCU ---
Subjective HPI/CRCU Issues: Patient denies she for Streptococcus pneumoniae meningitis, intubation and mechanical ventilation. I followed up and examined the patient today. She is laying in her bed, intubated, with tube feedings in place. She seems to be more alert than yesterday, with spontaneous eye opening and nodding her head to answer questions. She is still not tolerating ventilator weaning. Vitals have been stable except her high blood pressure, so half of 40 antihypertensive medications losartan 50 mg has been started, no overnight issues. Of note, next of kin is Antonio Thompson her phone #[phone]. 24 Hour Events: High blood presuure. Losartan 50mg restarted. Objective Vital Signs & I&O Last 8 Hrs of Vitals and I&O: Vital Signs Date Time Temp Pulse Resp B/P Pulse O2 O2 Flow FiO2 Ox Delivery Rate 04/09 0904 30 04/09 0800 98 Ventilator 30% 04/09 0800 97.8 66 10 160/90 98 Ventilator 30% 04/09 0526 30 04/09 0400 98 Ventilator 30% 04/09 0216 30 04/09 0200 81 13 178/90 02 0000 97 Ventilator 30% 04/08 2342 97.0 75 12 150/78 96 Ventilator 30% 04/08 2227 30 04/08 2000 96 Ventilator 30% 04/08 1920 30 04/08 1600 97 Ventilator 30% 04/08 1600 97.7 74 13 149/80 95 Ventilator 30% / 1554 30 04/08 1430 30 02 1210 30 02 1200 95 Ventilator 30% Exam General Appearance: well developed/nourished, intubated, obese, drowsy Head: lower lip wound is the same with crusting Ears, Nose, Throat: normal pharynx, normal ENT inspection Neck: normal inspection Respiratory: no respiratory distress, on ventilator with intubation Cardiovascular: regular rate/rhythm Gastrointestinal: normal bowel sounds, soft, non-tender Extremities: normal inspection, normal capillary refill, no change from yesterday Skin: intact, warm/dry Weaning Parameters NIF: 38 Minute Volume: 5.5 Resp rate: 26 Vt: 210 Heart Rate: 82 Weaning Schedule Start Time: 1700 Minute Volume: 5.3 Resp Rate: 18 Vt: 295 Heart Rate: 81 End Time: 1842 Minute Volume: 5.7 Resp Rate: 26 Vt: 220 Heart Rate: 93 Start Time: 0950 Minute Volume: 7.99 Resp Rate: 29 Vt: 273 Heart Rate: 88 End Time: 1111 Minute Volume: 6.79 Resp Rate: 24 Vt: 475 Heart Rate: 79 IV Drips IV Drips: IVF@50ml/hr Nutrition Nutrition: tube feeding Current Medications: Current Medications Sig/Garrick Start time Last Medication Dose Route Stop Time Status Admin Acetaminophen 1,000 MG Q6-PRN PRN 03/17 1630 AC 03/20 N/A 1 UNIT IV 1552 Acyclovir 1 SULEMAN Q5 04/06 1200 AC 04/09 TOP 0915 Ampicillin Sodium/ 3,000 MG Q6 04/06 1212 AC 04/09 Sulbactam Sodium IV 0527 Sodium Chloride 100 ML Ciprofloxacin 4 GTT BID 04/03 1000 AC 04/09 OTIC 04/09 220 0916 Dexamethasone 4 GTT BID 04/03 1000 AC 04/09 OTIC 04/09 2201 0916 Heparin Sodium 5,000 UNIT Q8 03/25 1400 AC 04/09 (Porcine) SC 0530 Hydralazine HCl 10 MG Q8 PRN 03/23 1315 AC 03/25 IV 0720 Insulin Human Regular 0 Q6 04/08 0600 AC 04/09 SC 0532 Levetiracetam 1,500 MG Q12H 03/28 0600 AC 04/09 Sodium Chloride 100 ML IV 0558 Levothyroxine Sodium 12.5 MCG DAILY 03/19 1000 AC 04/09 IV 0914 Losartan Potassium 50 MG ONCE ONE 04/09 0130 DC 04/09 PO 04/09 0131 0200 Pantoprazole Sodium 40 MG DAILY 03/18 1000 AC 04/09 IV 0914 Polyethylene Glycol 17 GM DAILY PRN 03/31 1215 AC 04/02 PO 0025 Sodium Chloride 1,000 ML Q20H 04/01 0845 AC 04/08 IV 1450 Valproate Sodium 1,000 MG Q8H 03/28 0200 AC 04/09 Sodium Chloride 100 ML IV 0915 CXR Findings: 1. Endotracheal tube 2.2 cm above the eugenio. 2. Stable retrocardiac left lower lobe airspace opacity with associated small left pleural effusion. 3. No significant change from the prior study of 04/08/2016. Impression/Plan Impression/Problem List Impression: This is a 70 year old female with PMH of hypotension, hyperlipidemia, hypothyroidism DM who came was brought to hospital after being found unresponsive. She had one day of otalgia and difficulty hearing. Found down and unresponsive, subsequently brought to on 03/17/2016. In ED was found to have Tmax 102, AMS/agitation, CT with pneumocephalus in temporal lobe, and opacification of mastoid air cells. Due to concern for bacterial meningitis 2/2 otitis she was admitted to ICU. She has had prolonged ICU stay. Of note, during admission fluoro-guided LP by IR pt had an episode of emesis and likely aspirated. CXR showed corresponding suspicious opacity. She subsequently desatted into the 60s and required BiPAP. Subsequently on March 25 patient had episode of hypertension with BP over 200 systolic, and was satting in the low 60s despite BiPAP. She was intubated; procedure was complicated by cardiopulmonary arrest. Patient was successfully resuscitated. She is currently intubated, off all pressors and hemodynamically stable. Her hospital course has been complicated by: Aspiration pneumonia, periodic hypotension, new- onset seizures, and increasing mastoid opacification treated by bilateral ear tubes. She is being managed in the intensive care unit for the following issues: Respiratory: Pt was intubated on 03/25/2016 because she had long periods of apnea on her blood pressure went up to 200 systolic. While she was being intubated patient went into cardiopulmonary arrest. One round of CPR was done. Patient attained ROSC. Now, pt continues to be intubated but under no sedation. Patient continues to be ventilator dependent. Thus, plan for tracheostomy and bag incoordination with ENT for tomorrow afternoon. * Follow-up with surgery regarding evaluation for tracheostomy and bag, planned for tomorrow 4pm. Confirmed with Dr. Pratt that the surgery will occur at 4pm tomorrow 04/10/16. Confirmed with OR as well. Informed Surgical PA over phone and asked to assess the patient prior to the surgery. Consent should be taken by the surgeon himself per Surgical PA. This probably would be late today or tomorrow prior to the surgery. Her next to kin is Antonio Leslie, . * Con't mechanical ventilation for now. * We spoke with family regarding long-term direction of patient's respiratory status. They are on board for trach. Need to update the situation by Surgical team and get consent. * Aspiration precautions. Patient already completed course of Unasyn for aspiration pneumonia during the beginning of her hospital course. * Today is day 4 of Unasyn IV, and she has not spiked fever and her vitals have been stable except for resp status. Neuro/ID: 1. Step Pneumo Meningitis: Patient has strep pneumo meningitis confirmed by CSF culture and blood culture. Finished 4 day course of Decadron. Initial CSF white count was 28,000 and repeat LP showed white blood cell of only 42 and third LP showed WBC of 14 and 1 RBC. 2x TTEs and one SAMUEL have both been negative for any valvular pathology. Her mental status is now the primary issue; she seems to have a waxing and waning picture. First EEG showed seizure activity and pt was started on antizeizure meds, second EEG negative. Got treated with 14 days of ceftriaxone (stopped on 03/31/2016) and vancomycin intermittently. Vanco given Mar 18- then Mar 25-Mar 28. Note that one culture of her LRC grew staph aureus. negative for MRSA; negative cxr. She was then re- started on ceftriaxone and D/C on 04/06/2013 and started on Unasyn on 04/06/16 * Antibiotics are continued for treating mastoid not the meningitis * Continue to monitor mental status 2. Mastoid Opacification: she got bilateral ear tube placement on 04/13/2016 to address the bilateral mastoid opacification seen on CT. Initially, patient had opacification on the left mastoid, repeat CT about a week later showed opacification extending to the right. Initially was concern for continued strep pneumo infection. However, the fluid cultures are negative for any suspicious organism, just growing coag negative staph which is likely contaminant. Repeat CT-head with IV contrast on 04/03 showed no change. On speaking with neuroradiologist there seems to be possibility of a communicating hydrocephalus and she does have some meningeal inflammation. * We will continue Unasyn and per ID, if she becomes hypotensive again, per Dr. Salazar, start IV vancomycin with a goal trough of 15-20. * Daily chest x-ray * Thank you Neuro consult * Thank you ENT consult * ESR was 75 on 04/07/16 3. New onset Seizures: Patient has new onset seizures which started early a.m. on 03/24/2016. Since then she has had a repeat seizure activity, at least 2 episodes of GTC. The rest seem to be focal, localized to her right arm. EEG about a week ago showed corresponding epileptiform activity in left hemisphere. Pt currently on Keppra and Depakote IV at increased doses. Second EEG negative. * Appreciate Neurology consult * Con't Keppra and Depakote * CT head done, does not show acute changes * Neuro wants repeat read of coronal and sagittal views to make sure that it is not empyema/abscess that might need draining. Waiting for the repeat read. CVS: Patient had an episode of hypotensionon 04/05/2016, lowest blood pressure recorded was 87/48. She was given 3.5 L of fluids did not respond and subsequently was started on 2.5 g of levothyroxine. She adequately responded blood pressures reaching 120s and 130s systolic. Levophed was turned off. She got a lumbar puncture on 04/04/2016 and was given 1 mg Ativan and propofol for sedation. Likely a combination of the procedure and propofol resulted in hypotension in this fragile patient. Patient is currently hemodynamically stable and off pressors however she continuously ventilated. Note that when patient was first intubated she was started on both Levophed and Rashid-Synephrine. Over a period of days she was able to be weaned off all pressors. * Normal saline at 50 mL * Strict I's and O's * Measure prealbumin Heme/Onc: Stable. Will con't monitor. Msk: Moving r. side less than left initially. * Consider PT and long-term rehabilitation once patient is more stable and extubated GI: placed Dobbhoff on 03/20. Con't tube feeds. * RISS * Tube feeds * Protonix Con't Synthroid. FULL CODE TUBE FEED CHEM/ALPS DVT PPX Problem List: 1. Sepsis 2. Meningitis 3. Dependence on ventilator, status Pain Ratin Pain Goal: Remain pain free Pain Plan: prn Tomorrow's Labs & Rationales: ICU bundle, CXR, INR, CBC as pre-op investigations Plan DVT/Prophylaxis: pharmacological
[2016-04-09 08:00] VITALS: BP 160/90
--- NOTE | 2016-04-09 08:27 | RADIOLOGY REPORT ---
EXAMINATION: XR PORTABLE CHEST CLINICAL INFORMATION: Reconfirm ET tube placement. COMPARISON: 04/08/2016 TECHNIQUE: Portable AP view of the chest was obtained. FINDINGS: An endotracheal tube appears to terminate proximally 2.2 cm above the eugenio, in similar position to the prior. A feeding tube extends below the diaphragmatic level, tip not visualized. The cardiomediastinal silhouette is stable. There is stable retrocardiac left lower lobe opacity as well as blunting of the left costophrenic angle. No developing pulmonary edema. The right lung is grossly clear. No pneumothoraces. There are degenerative changes of the spine without acute osseous abnormality. IMPRESSION: 1. Endotracheal tube 2.2 cm above the eugenio. 2. Stable retrocardiac left lower lobe airspace opacity with associated small left pleural effusion. 3. No significant change from the prior study of 04/08/2016.
--- NOTE | 2016-04-09 08:37 | PN- CRCU ---
Subjective HPI/Critical Care Issues: Appears awake but remains weak. She remains on mechanical ventilation. She has had difficulty with prolonged apneas as per respiratory therapy. She remains afebrile and hemodynamically stable. Her blood pressure has at times been elevated intermittently. She remains on 30% oxygen. Objective Current Medications: Current Medications Sig/Garrick Start time Last Medication Dose Route Stop Time Status Admin Acetaminophen 1,000 MG Q6-PRN PRN 03/17 1630 AC 03/20 N/A 1 UNIT IV 1552 Acyclovir 1 SULEMAN Q5 04/06 1200 AC 04/08 TOP 2325 Ampicillin Sodium/ 3,000 MG Q6 04/06 1212 AC 04/09 Sulbactam Sodium IV 0527 Sodium Chloride 100 ML Ciprofloxacin 4 GTT BID 04/03 1000 AC 04/08 OTIC 04/09 220 2133 Dexamethasone 4 GTT BID 04/03 1000 AC 04/08 OTIC 04/09 2201 2133 Heparin Sodium 5,000 UNIT Q8 03/25 1400 AC 04/09 (Porcine) SC 0530 Hydralazine HCl 10 MG Q8 PRN 03/23 1315 AC 03/25 IV 0720 Insulin Human Regular 0 Q6 04/08 0600 AC 04/09 SC 0532 Levetiracetam 1,500 MG Q12H 03/28 0600 AC 04/09 Sodium Chloride 100 ML IV 0558 Levothyroxine Sodium 12.5 MCG DAILY 03/19 1000 AC 04/08 IV 0936 Losartan Potassium 50 MG ONCE ONE 04/09 0130 DC 04/09 PO 04/09 0131 0200 Pantoprazole Sodium 40 MG DAILY 03/18 1000 AC 04/08 IV 0935 Polyethylene Glycol 17 GM DAILY PRN 03/31 1215 AC 04/02 PO 0025 Sodium Chloride 1,000 ML Q20H 04/01 0845 AC 04/08 IV 1450 Valproate Sodium 1,000 MG Q8H 03/28 0200 AC 04/09 Sodium Chloride 100 ML IV 0200 Vital Signs & I&O Last 24 Hrs of Vitals and I&O: Vital Signs Date Time Temp Pulse Resp B/P Pulse O2 O2 Flow FiO2 Ox Delivery Rate 04/09 0526 30 04/09 0400 98 Ventilator 30% 04/09 0216 30 04/09 0200 81 13 178/90 04/09 0000 97 Ventilator 30% 04/08 2342 97.0 75 12 150/78 96 Ventilator 30% 04/08 2227 30 04/08 1999 96 Ventilator 30% 04/08 1920 30 04/08 1600 97 Ventilator 30% 04/08 1600 97.7 74 13 149/80 95 Ventilator 30% 04/08 1554 30 04/08 1430 30 04/08 1210 30 04/08 1200 95 Ventilator 30% 04/08 0815 30 Intake & Output 04/09 1600 04/09 0800 04/09 0000 Intake Total 1191 1183 Output Total 1200 1600 Balance -9 -417 Intake, IV 568 565 Intake, Oral 0 0 Intake, Other 190 190 Intake, Tube 433 428 Feeding Number 2 2 Bowel Movements Output, Urine 1200 1600 Exam General Appearance: lethargic, intubated Head: atraumatic, normal appearance, lower lip appears black and scabbed over Neck: normal inspection, supple Respiratory: no respiratory distress, a few scattered rhonchi are heard Cardiovascular: regular rate/rhythm Abdomen: normal bowel sounds, soft, non-tender Extremities: no edema Skin: intact, normal color, warm/dry Results Last 24 Hrs of Lab Results: Laboratory Tests 04/09/16 0409: Anion Gap 10, Estimated GFR > 60, Glucose 192 H, Calcium 8.5, Phosphorus 4.1, Magnesium 1.8, Total Bilirubin 0.3, AST 18, ALT 19, Albumin 2.5 L, PT 14.4 H, INR 1.38 H, CBC w Diff MAN DIFF ORDERED, RBC 4.00 L, MCV 86.5, MCH 28.6, RDW 14.9 H, MPV 7.0 L, Gran % 58.6, Lymphocytes % 18.3 L, Monocytes % 22.6 H, Eosinophils % 0.1, Basophils % 0.4, Absolute Granulocytes 4.7, Segmented Neutrophils 51, Band Neutrophils 3, Absolute Lymphocytes 1.5, Lymphocytes 26, Monocytes 17 H, Absolute Monocytes 1.8 H, Eosinophils 1, Absolute Eosinophils 0, Absolute Basophils 0, Metamyelocytes 2 H, Platelet Estimate ADEQUATE, Polychromasia 1+, Basophilic Stippling SLIGHT, Ovalocytes FEW, PUBS MCHC 33.0, Fld Total RBCs Counted 100 Diagnostic Data CXR Findings: No significant change. Impression/Plan Impression/Plan Impression/Plan: 1. Toxic/metabolic encephalopathy, with ? cerebritis and mastoiditis, no further seizures. Mental status slowly improving. 2. Acute anemia - may be dilutional, without evidence of active bleeding. 3. Respiratory failure secondary to ventilatory failure - day 16 mechanical ventilation. The patient is having prolonged periods of apnea and we will therefore pursue tracheostomy. 4. Malnutrition. Recommendations: * Will continue with weaning. * Will proceed with tracheostomy. * Continue normal saline at 50 ML per hour. * Continue Unasyn for mastoiditis. * Continue to follow antiseizure regimen as per neurology. * Continue tubes feeds at goal. Bowel regimen for daily bowel movements. * Continue DVT and GI prophylaxis. * Continue all supportive care for now.
--- NOTE | 2016-04-09 12:44 | PN- Infect Dx ---
Subjective Subjective: Remains afebrile; apneic episodes during SBT. Continues to improve clinically; son at the bed side. Review of Systems Comments: 10 points reviewed as noted, otherwise negative. Objective Last 24 Hrs of Vital Signs/I&O Vital Signs Date Time Temp Pulse Resp B/P Pulse O2 O2 Flow FiO2 Ox Delivery Rate 04/09 1206 5 04/09 1200 98 Ventilator 30% 04/09 0904 30 04/09 0800 98 Ventilator 30% 04/09 0800 97.8 66 10 160/90 98 Ventilator 30% 04/09 0526 30 04/09 0400 98 Ventilator 30% 04/09 0216 30 04/09 0200 81 13 178/90 04/09 0000 97 Ventilator 30% 04/08 2342 97.0 75 12 150/78 96 Ventilator 30% 04/08 2227 30 04/08 2000 96 Ventilator 30% 04/08 1920 30 04/08 1600 97 Ventilator 30% 04/08 1600 97.7 74 13 149/80 95 Ventilator 30% 04/08 1554 30 04/08 1430 30 Intake & Output 04/09 1600 04/09 0800 04/09 0000 Intake Total 1191 1183 Output Total 1200 1600 Balance -9 -417 Intake, IV 568 565 Intake, Oral 0 0 Intake, Other 190 190 Intake, Tube 433 428 Feeding Number 2 2 Bowel Movements Output, Urine 1200 1600 Physical Exam Other Physical Findings: General Appearance: intubated Neuro: awake, moving extremities, appears to have diminished hearing L ear Head: atraumatic, normal appearance lower lip lesion is healing Neck: normal inspection, supple Respiratory: BS present, diminished bases, no wheezing Cardiovascular: regular rate/rhythm, HERIBERTO LSB 2/6 Abdomen: normal bowel sounds, soft, non-tender Extremities: no edema, R UE PICC line in place w/o erythema Skin: intact, normal color, warm/dry Results Last 24 Hours of Lab Results: Laboratory Tests 04/09 0409 Chemistry Sodium (137 - 145 mmol/L) 136 L Potassium (3.5 - 5.1 mmol/L) 4.2 Chloride (98 - 107 mmol/L) 96 L Carbon Dioxide (22 - 30 mmol/L) 31 H Anion Gap (5 - 16) 10 BUN (7 - 17 mg/dL) 12 Creatinine (0.5 - 1.0 mg/dL) 0.6 Estimated GFR (>60 ml/min) > 60 Glucose (65 - 99 mg/dL) 192 H Calcium (8.4 - 10.2 mg/dL) 8.5 Phosphorus (2.5 - 4.5 mg/dL) 4.1 Magnesium (1.6 - 2.3 mg/dL) 1.8 Total Bilirubin (0.2 - 1.3 mg/dL) 0.3 AST (14 - 36 U/L) 18 ALT (9 - 52 U/L) 19 Albumin (3.5 - 5.0 g/dL) 2.5 L Coagulation PT (9.4 - 12.5 SEC) 14.4 H INR (0.90 - 1.19) 1.38 H Hematology CBC w Diff MAN DIFF ORDERED WBC (4.8 - 10.8 /CUMM) 8.0 RBC (4.20 - 5.40 /CUMM) 4.00 L Hgb (12.0 - 16.0 G/DL) 11.4 L Hct (37 - 47 %) 34.6 L MCV (81.0 - 99.0 FL) 86.5 MCH (27.0 - 31.0 PG) 28.6 RDW (11.5 - 14.5 %) 14.9 H Plt Count (130 - 400 /CUMM) 297 MPV (7.4 - 10.4 FL) 7.0 L Gran % (42.2 - 75.2 %) 58.6 Lymphocytes % (20.5 - 51.1 %) 18.3 L Monocytes % (1.7 - 9.3 %) 22.6 H Eosinophils % (0 - 5 %) 0.1 Basophils % (0.0 - 2.0 %) 0.4 Absolute Granulocytes (1.4 - 6.5 /CUMM) 4.7 Segmented Neutrophils (42.2 - 75.2 %) 51 Band Neutrophils (0.0 - 5.0 %) 3 Absolute Lymphocytes (1.2 - 3.4 /CUMM) 1.5 Lymphocytes (20.5 - 51.1 %) 26 Monocytes (1.7 - 9.3 %) 17 H Absolute Monocytes (0.10 - 0.60 /CUMM) 1.8 H Eosinophils (0 - 5.0 %) 1 Absolute Eosinophils (0.0 - 0.7 /CUMM) 0 Absolute Basophils (0.0 - 0.2 /CUMM) 0 Metamyelocytes (0.0 - 1.0 %) 2 H Platelet Estimate (ADEQUATE) ADEQUATE Polychromasia 1+ Basophilic Stippling SLIGHT Ovalocytes FEW PUBS MCHC (33.0 - 37.0 G/DL) 33.0 Other Body Source Fld Total RBCs Counted (%) 100 Last 24 Hours of [place] Results: PEC #: [id number] MANJEET: 04/03/16 STATUS: COMP RECD: 04/03/[address]: NICCI ALDRICH, KAILA SOURCE: LOWER RESP ENTR: 04/03/[address]: AUSTIN ALDRICH,Talisha DICKSON SPDESC: SPUTUMTRAP ALESHIA ALDRICH,EILEEN Tatum ORDERED: LOWER RESPIRATO Procedure Result > GRAM STAIN Final 04/03/161234 WHITE BLOOD CELLS MANY SQUAMOUS CELLS RARE GRAM POSITIVE COCCI MANY GRAM NEGATIVE RODS FEW GRAM NEGATIVE COCCI FEW GRAM POSITIVE RODS RARE > LOWER RESPIRATORY CULTURE Final 04/06/16 Moderate growth of: 1.ACINETOBACTER BAUMANNII 2. STAPH AUREUS ISOLATED Acin bauma Staph sabrina RX AB RX AB ------ -- ------ -- CEFAZOLIN S AMOX/CLAV AUGM S AMP/SULB-UNASYN S S CIPROFLOXACIN S GENTAMICIN S TETRACYCLINE S TRIMETH/SULFA S S AZITHROMYCIN S CLINDAMYCIN S ERYTHROMYCIN S OXACILLIN S VANCOMYCIN S 1. ACINETOBACTER BAUMANNII RX AB ------ -- AMPICILLIN/SULBACTAM S CIPROFLOXACIN S GENTAMICIN S TRIMETHOPRIM/SULFAMETHOXAZOLE S 2. STAPH AUREUS Recent Imaging Studies: SERVICE DATE: 04/09/16 EXAM TYPE: RAD - XRY-PORTABLE CHEST XRAY EXAMINATION: XR PORTABLE CHEST CLINICAL INFORMATION: Reconfirm ET tube placement. COMPARISON: 04/08/2016 TECHNIQUE: Portable AP view of the chest was obtained. FINDINGS: An endotracheal tube appears to terminate proximally 2.2 cm above the eugenio, in similar position to the prior. A feeding tube extends below the diaphragmatic level, tip not visualized. The cardiomediastinal silhouette is stable. There is stable retrocardiac left lower lobe opacity as well as blunting of the left costophrenic angle. No developing pulmonary edema. The right lung is grossly clear. No pneumothoraces. There are degenerative changes of the spine without acute osseous abnormality. IMPRESSION: 1. Endotracheal tube 2.2 cm above the eugenio. 2. Stable retrocardiac left lower lobe airspace opacity with associated small left pleural effusion. 3. No significant change from the prior study of 04/08/2016. 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 Bilateral mastoiditis/sinus dx. Pneumococcal meningitis (treated). 2. Respiratory failure 3. Elevated ESR 4. Systolic murmur without evidence of endocarditis on TTE and SAMUEL. Suggestion: 1. Continue Unasyn 3 gm q 6 h D #4/. 2. Call if fever. 3. Trend CBC, BMP. 4. Nutrition per team.
[2016-04-09 16:00] VITALS: BP 138/80
[2016-04-10] VITALS: BP 137/76
[2016-04-10 05:00] LABS: HEMATOCRIT 33.3 % (37-47); MEAN CORPUSCULAR HGB 28.7 PG (27.0-31.0); MEAN CORPUSCULAR VOLUME 86.9 FL (81.0-99.0); MEAN PLATELET VOLUME 6.9 FL (7.4-10.4); PLATELET COUNT 272 /CUMM (130-400); RED BLOOD CELL CT 3.84 /CUMM (4.20-5.40); WHITE BLOOD CELL COUNT 7.4 /CUMM (4.8-10.8)
[2016-04-10 05:01] LABS: PT 14.3 SEC (9.4-12.5)
--- NOTE | 2016-04-10 07:36 | PN- Resident CRCU ---
Subjective HPI/CRCU Issues: Patient in ICU for Streptococcus pneumoniae meningitis, intubation and mechanical ventilation. I followed up and examined the patient today. She is laying in her bed, intubated, with tube feedings in place. She seems to be much more alert than yesterday, with spontaneous eye opening, nodding her head to answer questions, and moving her arms. She has more purposeful movements and looks today. Trial of weaning her off ventilator to be tried. Vitals have been stable, no overnight issues. Objective Vital Signs & I&O Last 8 Hrs of Vitals and I&O: Intake & Output 04/10 1600 Intake Total 680 Output Total 1500 Balance -820 Intake, IV 680 Intake, Oral 0 Number 1 Bowel Movements Output, Urine 1500 Exam General Appearance: well developed/nourished, alert, intubated, obese Head: normal appearance, lower lip wound present, no change from yesterday Ears, Nose, Throat: normal pharynx, normal ENT inspection Neck: normal inspection, supple Respiratory: normal breath sounds, on ventilator with intubation Cardiovascular: regular rate/rhythm Gastrointestinal: normal bowel sounds, soft, non-tender Extremities: normal inspection, normal capillary refill, no change form yesterday Skin: intact, normal color, warm/dry Weaning Parameters NIF: 57 Minute Volume: 5.00 Resp rate: 13 Vt: 385 Heart Rate: 82 Weaning Schedule Start Time: 1700 Minute Volume: 5.02 Resp Rate: 17 Vt: 295 Heart Rate: 87 End Time: 1900 Minute Volume: 6.39 Resp Rate: 15 Vt: 420 Heart Rate: 83 Start Time: 0950 Minute Volume: 7.99 Resp Rate: 29 Vt: 273 Heart Rate: 88 End Time: 1111 Minute Volume: 6.79 Resp Rate: 24 Vt: 475 Heart Rate: 79 IV Drips IV Drips: IVF@50ml/hr Nutrition Nutrition: tube feeding Current Medications: Current Medications Sig/Garrick Start time Last Medication Dose Route Stop Time Status Admin Acetaminophen 1,000 MG Q6-PRN PRN 03/17 1630 AC 03/20 N/A 1 UNIT IV 1552 Acyclovir 1 SULEMAN Q5 04/06 1200 AC 04/10 TOP 1542 Albuterol Sulfate 3 ML ONCE ONE 04/10 1515 DC 04/10 INH 04/10 1516 1514 Ampicillin Sodium/ 3,000 MG Q6 04/10 1800 AC Sulbactam Sodium IV 04/23 0400 Sodium Chloride 100 ML Ampicillin Sodium/ 3,000 MG Q6 04/06 1212 DC 04/10 Sulbactam Sodium IV 1148 Sodium Chloride 100 ML Ciprofloxacin 4 GTT BID 04/03 1000 DC 04/09 OTIC 04/09 2201 2300 Dexamethasone 4 GTT BID 04/03 1000 DC 04/09 OTIC 04/09 2201 2300 Furosemide 20 MG ONCE ONE 04/10 1530 DC 04/10 IV 04/10 1531 1539 Furosemide 20 MG ONCE ONE 04/10 1300 DC 04/10 IV 04/10 1301 1255 Heparin Sodium 5,000 UNIT Q8 03/25 1400 AC 04/10 (Porcine) SC 1327 Hydralazine HCl 10 MG ONE TIME ONE 04/10 1415 DC 04/10 IV 04/10 1416 1425 Hydralazine HCl 10 MG Q8 PRN 03/23 1315 AC 04/10 IV 1425 Insulin Human Regular 0 Q6 04/08 0600 AC 04/10 SC 1227 Levetiracetam 1,500 MG Q12H 03/28 0600 AC 04/10 Sodium Chloride 100 ML IV 0656 Levothyroxine Sodium 12.5 MCG DAILY 03/19 1000 AC 04/10 IV 1144 Methylprednisolone 40 MG ONCE ONE 04/10 1300 DC IV 04/10 1301 Methylprednisolone 40 MG ONCE ONE 04/10 1245 DC 04/10 IV 04/10 1246 1255 Metoprolol Tartrate 5 MG ONCE ONE 04/10 1345 DC 04/10 IV 04/10 1346 1337 Pantoprazole Sodium 40 MG DAILY 03/18 1000 AC 04/10 IV 1014 Polyethylene Glycol 17 GM DAILY PRN 03/31 1215 AC 04/02 PO 0025 Racepinephrine 0.5 ML ONCE ONE 04/10 1300 DC 04/10 INH 04/10 1301 1245 Sodium Chloride 1,000 ML Q20H 04/01 0845 DC 04/10 IV 1208 Valproate Sodium 1,000 MG Q8H 03/28 0200 AC 04/10 Sodium Chloride 100 ML IV 1144 CXR Findings: 1. ET tube approximately 2.2 cm above eugenio. NG tube below diaphragm. PICC at mid superior vena cava. 2. Stable opacity and small effusion left base. 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 She had one day of otalgia and difficulty hearing. Found down and unresponsive, subsequently brought to on 03/17/2016. In ED was found to have Tmax 102, AMS/agitation, CT with pneumocephalus in temporal lobe, and opacification of mastoid air cells. Due to concern for bacterial meningitis 2/2 otitis she was admitted to ICU. She has had prolonged ICU stay. Of note, during admission fluoro-guided LP by IR pt had an episode of emesis and likely aspirated. CXR showed corresponding suspicious opacity. She subsequently desatted into the 60s and required BiPAP. Subsequently on March 25 patient had episode of hypertension with BP over 200 systolic, and was satting in the low 60s despite BiPAP. She was intubated; procedure was complicated by cardiopulmonary arrest. Patient was successfully resuscitated. She is currently intubated, off all pressors and hemodynamically stable. Her hospital course has been complicated by: Aspiration pneumonia, periodic hypotension, new- onset seizures, and increasing mastoid opacification treated by bilateral ear tubes. She is being managed in the intensive care unit for the following issues: Respiratory: Pt was intubated on 03/25/2016 because she had long periods of apnea on her blood pressure went up to 200 systolic. While she was being intubated patient went into cardiopulmonary arrest. One round of CPR was done. Patient attained ROSC. Now, pt continues to be intubated but under no sedation. Patient was ventilator dependent until today, with failing weaning trials, but is doing much better with wenaing today. Patient extubated today after assessment by Dr Treviño, Dr Morejon, ne (Dr Kelly), Respiratory Therapist. Thus, plan for tracheostomy later this afternoon cancelled. ENT and operating room informed about cancellation and confirmed. Update: 04/10/16 1400: Patient's respiratory rate increased and she was having respiratory distress with flushing, increased work of breathing, sweating, but her oxygen saturation were well above 95% with a facemask on. Condition was assessed and the decision was made to put her on BiPAP, following which, her work of breathing significantly decreased, she was no longer sweating or flushed and her respiratory rate decreased to normal. She has been alert, oriented, and responding to instructions nonverbally all throughout. * Aspiration precautions. Patient already completed course of Unasyn for aspiration pneumonia during the beginning of her hospital course. * Today is day 5 of Unasyn IV, and she has not spiked fever and her vitals have been stable except for resp status. Neuro/ID: 1. Step Pneumo Meningitis: Patient has strep pneumo meningitis confirmed by CSF culture and blood culture. Finished 4 day course of Decadron. Initial CSF white count was 28,000 and repeat LP showed white blood cell of only 42 and third LP showed WBC of 14 and 1 RBC. 2x TTEs and one SAMUEL have both been negative for any valvular pathology. Her mental status is now the primary issue; she seems to have a waxing and waning picture. First EEG showed seizure activity and pt was started on antizeizure meds, second EEG negative. Got treated with 14 days of ceftriaxone (stopped on 03/31/2016) and vancomycin intermittently. Vanco given Mar 18- then Mar 25-Mar 28. Note that one culture of her LRC grew staph aureus. negative for MRSA; negative cxr. She was then re- started on ceftriaxone and D/C on 04/06/2013 and started on Unasyn on 04/06/16 * Antibiotics are continued for treating mastoid not the meningitis * Continue to monitor mental status 2. Mastoid Opacification: she got bilateral ear tube placement on 04/13/2016 to address the bilateral mastoid opacification seen on CT. Initially, patient had opacification on the left mastoid, repeat CT about a week later showed opacification extending to the right. Initially was concern for continued strep pneumo infection. However, the fluid cultures are negative for any suspicious organism, just growing coag negative staph which is likely contaminant. Repeat CT-head with IV contrast on 04/03 showed no change. On speaking with neuroradiologist there seems to be possibility of a communicating hydrocephalus and she does have some meningeal inflammation. * We will continue Unasyn and per ID, if she becomes hypotensive again, per Dr. Salazar, start IV vancomycin with a goal trough of 15-20. * Daily chest x-ray * Thank you Neuro consult * Thank you ENT consult * ESR was 75 on 04/07/16 3. New onset Seizures: Patient has new onset seizures which started early a.m. on 03/24/2016. Since then she has had a repeat seizure activity, at least 2 episodes of GTC. The rest seem to be focal, localized to her right arm. EEG about a week ago showed corresponding epileptiform activity in left hemisphere. Pt currently on Keppra and Depakote IV at increased doses. Second EEG negative. * Appreciate Neurology consult * Con't Keppra and Depakote * CT head done, does not show acute changes * Neuro wants repeat read of coronal and sagittal views to make sure that it is not empyema/abscess that might need draining. Waiting for the repeat read. CVS: Patient had an episode of hypotensionon 04/05/2016, lowest blood pressure recorded was 87/48. She was given 3.5 L of fluids did not respond and subsequently was started on 2.5 g of levothyroxine. She adequately responded blood pressures reaching 120s and 130s systolic. Levophed was turned off. She got a lumbar puncture on 04/04/2016 and was given 1 mg Ativan and propofol for sedation. Likely a combination of the procedure and propofol resulted in hypotension in this fragile patient. Patient is currently hemodynamically stable and off pressors however she continuously ventilated. Note that when patient was first intubated she was started on both Levophed and Rashid-Synephrine. Over a period of days she was able to be weaned off all pressors. * Strict I's and O's * Measure prealbumin Heme/Onc: Stable. Will con't monitor. Msk: Moving r. side less than left initially. * Consider PT and long-term rehabilitation now, once patient is more stable and extubated GI: placed Dobbhoff on 03/20. * IVF to resume after watching her overnight. If she shows signs of dehydration, very low dose of IV fluids can be started as an infusion. * RISS * NPO for now, will consider feeding after she is more stable. * Protonix Con't Synthroid. FULL CODE TUBE FEED CHEM/ALPS DVT PPX Problem List: 1. Sepsis 2. Meningitis Pain Ratin Pain Location: cannot assess Pain Goal: Remain pain free Pain Plan: prn Tomorrow's Labs & Rationales: CBC, ICU bundle, CXR Plan DVT/Prophylaxis: pharmacological
[2016-04-10 08:00] VITALS: BP 150/80
--- NOTE | 2016-04-10 08:47 | Cons- CRCU ---
General Information and HPI Allergies/Medications Allergies: Coded Allergies: Sulfa (Sulfonamide Antibiotics) (Intermediate, TURNS RED 03/17/16) Home Med List: Aspirin (Ecotrin*) 81 MG TABLET.DR 1 TAB PO DAILY HEART HEALTH (Reported) Atorvastatin Calcium 10 MG TABLET 1 TAB PO DAILY CHOLESTEROL (Reported) Insulin NPL/Insulin Lispro (Humalog Mix 75-25 Kwikpen) 100 UNIT/ML (75-25) INSULN.PEN DIABETES (Reported) Levothyroxine Sodium 25 MCG TABLET 1 TAB PO DAILY AC THYROID (Reported) Losartan Potassium 100 MG TABLET 1 TAB PO DAILY HEART (Reported) Metformin HCl 1,000 MG TABLET 1 TAB PO BID DIABETES (Reported) Past History Travel History Traveled to [place] past 21 day No Medical History Blood Transfusion Hx: No Neurological: NONE EENT: NONE Cardiovascular: hypertension, hyperlipidemia Respiratory: NONE Gastrointestinal: NONE Hepatic: NONE Renal: NONE Musculoskeletal: NONE Psychiatric: NONE Endocrine: diabetes, hypothyroidism, obesity Blood Disorders: NONE Cancer(s): NONE CHILD CARE/Reproductive: NONE Surgical History Surgical History: none Psychosocial History Where Do You Live? Home Services at Home: None Smoking Status: Unknown If Ever Smoked Functional Ability ADLs Independent: dressing, eating, toileting, bathing. Ambulation: independent IADLs Independent: shopping, housework, finances, food prep, telephone, transportation , medication admin. Assessment/Plan Consult Acknowledgment - Thank you for your consult request.
--- NOTE | 2016-04-10 09:19 | PN- CRCU ---
Subjective HPI/Critical Care Issues: The patient is awake and more alert this morning. She continues to have periods of apnea while traveling on mechanical ventilation. Her to tube feeds have been turned off in anticipation of tracheostomy placement. There were no overnight events. Objective Current Medications: Current Medications Sig/Garrick Start time Last Medication Dose Route Stop Time Status Admin Acetaminophen 1,000 MG Q6-PRN PRN 03/17 1630 AC 03/20 N/A 1 UNIT IV 1552 Acyclovir 1 SULEMAN Q5 04/06 1200 AC 04/10 TOP 0719 Ampicillin Sodium/ 3,000 MG Q6 04/06 1212 AC 04/10 Sulbactam Sodium IV 0656 Sodium Chloride 100 ML Ciprofloxacin 4 GTT BID 04/03 1000 DC 04/09 OTIC 04/09 2201 2300 Dexamethasone 4 GTT BID 04/03 1000 DC 04/09 OTIC 04/09 2201 2300 Heparin Sodium 5,000 UNIT Q8 03/25 1400 AC 04/10 (Porcine) SC 0600 Hydralazine HCl 10 MG Q8 PRN 03/23 1315 AC 03/25 IV 0720 Insulin Human Regular 0 Q6 04/08 0600 AC 04/10 SC 0720 Levetiracetam 1,500 MG Q12H 03/28 0600 AC 04/10 Sodium Chloride 100 ML IV 0656 Levothyroxine Sodium 12.5 MCG DAILY 03/19 1000 AC 04/09 IV 0914 Pantoprazole Sodium 40 MG DAILY 03/18 1000 AC 04/09 IV 0914 Polyethylene Glycol 17 GM DAILY PRN 03/31 1215 AC 04/02 PO 0025 Sodium Chloride 1,000 ML Q20H 04/01 0845 AC 04/09 IV 1600 Valproate Sodium 1,000 MG Q8H 03/28 0200 AC 04/10 Sodium Chloride 100 ML IV 0247 Vital Signs & I&O Last 24 Hrs of Vitals and I&O: Vital Signs Date Time Temp Pulse Resp B/P Pulse O2 O2 Flow FiO2 Ox Delivery Rate 04/10 0554 30 04/10 0400 96 Ventilator 30% 04/10 0330 30 04/10 0046 30 04/10 0000 96.9 75 13 137/76 96 Ventilator 30% 04/10 0000 96 Ventilator 30% 04/09 2227 30 04/09 2000 96 Ventilator 30% 04/09 1910 30 04/09 1705 30 02/15 1600 30 Ventilator 30% 04/09 1600 98.9 82 13 138/80 96 Ventilator 30% 04/09 1347 30 04/09 1206 5 04/09 1200 98 Ventilator 30% Intake & Output 04/10 1600 04/10 0800 04/10 0000 Intake Total 1094 1501 Output Total 300 500 Balance 794 1001 Intake, IV 600 730 Intake, Tube 304 581 Feeding Intake, Tube 190 190 Irrigant Number 1 0 Bowel Movements Output, Urine 300 500 Exam General Appearance: more awake, intubated Head: atraumatic, normal appearance, lower lip appears improved Neck: normal inspection, supple Respiratory: no respiratory distress, a few scattered rhonchi are heard Cardiovascular: regular rate/rhythm Abdomen: normal bowel sounds, soft, non-tender Extremities: no edema Skin: intact, normal color, warm/dry Impression/Plan Impression/Plan Impression/Plan: 1. Toxic/metabolic encephalopathy, with ? cerebritis and mastoiditis, no further seizures. Mental status slowly improving. 2. Acute anemia - Hgb now stable. 3. Respiratory failure secondary to ventilatory failure - day 17 mechanical ventilation. The patient is having prolonged periods of apnea and we will therefore pursue tracheostomy later today. 4. Malnutrition. Recommendations: * Tube feeds on hold. * Will proceed with tracheostomy later today. * Continue normal saline at 50 ML per hour. * Continue Unasyn for mastoiditis. * Continue to follow antiseizure regimen as per neurology. * Continue DVT and GI prophylaxis/ventilator bundle. * Continue all supportive care for now.
--- NOTE | 2016-04-10 09:28 | RADIOLOGY REPORT ---
EXAMINATION: XR PORTABLE CHEST CLINICAL INFORMATION: Confirm tube placement. Patient intubated. COMPARISON: Portable chest 04/09/2016, 04/08/2016, 04/07/2016. TECHNIQUE: Portable AP view of the chest is performed at 0624 hours. FINDINGS: Radiograph is obtained with patient rotated to the left. Endotracheal tube is approximately 2.2 cm above eugenio. NG tube is seen with distal end below diaphragm and extending beyond the inferior film [id number]. There is right-sided PICC with tip at mid superior vena cava. Opacity left base with small left effusion appears stable from prior study. The right lung is clear. The vascularity is normal. No pneumothorax. Cardiac, hilar, mediastinal contours and bony structures are similar to prior exams. IMPRESSION: 1. ET tube approximately 2.2 cm above eugenio. NG tube below diaphragm. PICC at mid superior vena cava. 2. Stable opacity and small effusion left base.
--- NOTE | 2016-04-10 13:42 | PN- Infect Dx ---
Subjective Subjective: No fever; MS much improved; extubated; ineffective cough. Review of Systems Comments: 10 points reviewed as noted, otherwise negative. Objective Last 24 Hrs of Vital Signs/I&O Vital Signs Date Time Temp Pulse Resp B/P Pulse O2 O2 Flow FiO2 Ox Delivery Rate 04/10 0855 30 04/10 0800 97 Ventilator 30% 04/10 0800 96.6 79 12 150/80 97 Ventilator 30% 04/10 0554 30 04/10 0400 96 Ventilator 30% 04/10 0330 30 04/10 0046 30 04/10 0000 96.9 75 13 137/76 96 Ventilator 30% 04/10 0000 96 Ventilator 30% 04/09 2227 30 04/09 2000 96 Ventilator 30% 04/09 1910 30 04/09 1705 30 04/09 1600 30 Ventilator 30% 04/09 1600 98.9 82 13 138/80 96 Ventilator 30% 04/09 1347 30 Intake & Output 04/10 1600 04/10 0800 02 0000 Intake Total 1094 1501 Output Total 300 500 Balance 794 1001 Intake, IV 600 730 Intake, Tube 304 581 Feeding Intake, Tube 190 190 Irrigant Number 1 0 Bowel Movements Output, Urine 300 500 Physical Exam Other Physical Findings: General Appearance: extubated, well nourished Neuro: awake, diminished hearing L ear Head: atraumatic, normal appearance lower lip lesion healing Neck: normal inspection, supple Respiratory: BS present, diminished bases, no wheezing Cardiovascular: regular rate/rhythm, HERIBERTO LSB 2/6 Abdomen: normal bowel sounds, soft, non-tender Extremities: no edema, R UE PICC line in place w/o erythema Skin: intact, normal color, warm/dry Results Last 24 Hours of Lab Results: Laboratory Tests 04/10 04/10 1200 0442 Blood Gas pH (7.35 - 7.45 PH) 7.53 H pCO2 (35 - 45 TORR) 35 pO2 (80 - 100 TORR) 103 H HCO3 (21 - 28 MEQ/L) 29 H ABG O2 Sat (Measured) (>96.0 %) 98.0 P-50 (Temp Corrected) YES Carboxyhemoglobin (1.5 - 5.0 %) 0.5 L O2 Concentration % 30% Temperature (97.0 - 100.0 FARH) 97.0 O2 Delivery Method T-PIECE Chemistry Sodium (137 - 145 mmol/L) 136 L Potassium (3.5 - 5.1 mmol/L) 4.2 Chloride (98 - 107 mmol/L) 99 Carbon Dioxide (22 - 30 mmol/L) 33 H Anion Gap (5 - 16) 4 L BUN (7 - 17 mg/dL) 15 Creatinine (0.5 - 1.0 mg/dL) 0.6 Estimated GFR (>60 ml/min) > 60 Glucose (65 - 99 mg/dL) 168 H Calcium (8.4 - 10.2 mg/dL) 8.3 L Phosphorus (2.5 - 4.5 mg/dL) 3.9 Magnesium (1.6 - 2.3 mg/dL) 1.8 Total Bilirubin (0.2 - 1.3 mg/dL) 0.3 AST (14 - 36 U/L) 18 ALT (9 - 52 U/L) 25 Albumin (3.5 - 5.0 g/dL) 2.2 L Coagulation PT (9.4 - 12.5 SEC) 14.3 H INR (0.90 - 1.19) 1.37 H Hematology CBC w Diff MAN DIFF ORDERED WBC (4.8 - 10.8 /CUMM) 7.4 RBC (4.20 - 5.40 /CUMM) 3.84 L Hgb (12.0 - 16.0 G/DL) 11.0 L Hct (37 - 47 %) 33.3 L MCV (81.0 - 99.0 FL) 86.9 MCH (27.0 - 31.0 PG) 28.7 RDW (11.5 - 14.5 %) 15.0 H Plt Count (130 - 400 /CUMM) 272 MPV (7.4 - 10.4 FL) 6.9 L Segmented Neutrophils (42.2 - 75.2 %) 43 Band Neutrophils (0.0 - 5.0 %) 8 H Lymphocytes (20.5 - 51.1 %) 30 Monocytes (1.7 - 9.3 %) 17 H Metamyelocytes (0.0 - 1.0 %) 2 H Platelet Estimate (ADEQUATE) ADEQUATE Polychromasia 1+ Poikilocytosis 1+ Ovalocytes 1+ PUBS MCHC (33.0 - 37.0 G/DL) 33.0 Miscellaneous Phlebotomy Draw Site LEFT RADIAL Other Body Source Fld Total RBCs Counted (%) 100 Last 24 Hours of Keaton Results: n/a Recent Imaging Studies: SERVICE DATE: 04/10/16 EXAM TYPE: RAD - XRY-PORTABLE CHEST XRAY EXAMINATION: XR PORTABLE CHEST CLINICAL INFORMATION: Confirm tube placement. Patient intubated. COMPARISON: Portable chest 04/09/2016, 04/08/2016, 04/07/2016. TECHNIQUE: Portable AP view of the chest is performed at 0624 hours. FINDINGS: Radiograph is obtained with patient rotated to the left. Endotracheal tube is approximately 2.2 cm above eugenio. NG tube is seen with distal end below diaphragm and extending beyond the inferior film [id number]. There is right-sided PICC with tip at mid superior vena cava. Opacity left base with small left effusion appears stable from prior study. The right lung is clear. The vascularity is normal. No pneumothorax. Cardiac, hilar, mediastinal contours and bony structures are similar to prior exams. IMPRESSION: 1. ET tube approximately 2.2 cm above eugenio. NG tube below diaphragm. PICC at mid superior vena cava. 2. Stable opacity and small effusion left base. DICTATED BY: LISA VERDUGO MD DATE/TIME DICTATED:04/10/16645 CAREER COORDINATOR:PAUL DATE/TIME TRANSCRIBED:04/10/16645 Assessment/Plan Impression: 1. Bilateral mastoiditis/sinus dx. Pneumococcal meningitis (treated). 2. Respiratory failure/just extubated; remains high risk aspiration pneumonia 3. Elevated ESR 4. Systolic murmur without evidence of endocarditis on TTE and SAMUEL. Suggestion: 1. Continue Unasyn 3 gm q 6 h D #5/14. Aspiration precautions. 2. Call if fever. 3. Trend CBC, BMP.
[2016-04-10 16:00] VITALS: BP 140/86
--- NOTE | 2016-04-10 20:00 | NUR ---
PUPILS EQUAL AND REACTIVE TO LIGHT. PT WILL FOLLOW WITH EYES.WILL SQUEEZE BOTH HANDS TO COMMAND,MOVE R TOES TO COMMAND. MONITOR SINUS RHYTHM.BIPAP AT 30%.SAT=98%.
[2016-04-11] VITALS: BP 154/80
[2016-04-11 04:26] LABS: ABSOLUTE BASOPHIL COUNT 0 /CUMM (0.0-0.2); ABSOLUTE EOSINOPHIL COUNT 0 /CUMM (0.0-0.7); ABSOLUTE GRANULOCYTE CT 7.1 /CUMM (1.4-6.5); ABSOLUTE MONOCYTE COUNT 2.1 /CUMM (0.10-0.60); BASOPHIL % 0.4 % (0.0-2.0); EOSINOPHIL % 0.2 % (0-5); GRANULOCYTE % 63.2 % (42.2-75.2); HEMATOCRIT 37.8 % (37-47); MEAN CORPUSCULAR HGB 28.5 PG (27.0-31.0); MEAN CORPUSCULAR HGB CONC 32.9 G/DL (33.0-37.0); MEAN CORPUSCULAR VOLUME 86.5 FL (81.0-99.0); MEAN PLATELET VOLUME 6.5 FL (7.4-10.4); PLATELET COUNT 391 /CUMM (130-400); RBC DISTRIBUTION WIDTH 15.3 % (11.5-14.5); RED BLOOD CELL CT 4.37 /CUMM (4.20-5.40)
[2016-04-11 04:29] LABS: WHITE BLOOD CELL COUNT 11.2 /CUMM (4.8-10.8)
--- NOTE | 2016-04-11 07:08 | PN- Resident CRCU ---
Subjective HPI/CRCU Issues: Patient in ICU for Streptococcus pneumoniae meningitis, s/p intubation and mechanical ventilation. I followed up and examined the patient today. She is sitting comfortably in the bed, was extubated yesterday, was on BiPAP overnight and until morning, but currently saturating well on nasal canula. Of note, she had a respiratory distress yesterday afternoon, and was put on BiPAP since then till this AM. She has not spiked fever, vitals have been stable overnight, no issues overnight. Objective Vital Signs & I&O Last 8 Hrs of Vitals and I&O: Vital Signs Date Time Temp Pulse Resp B/P Pulse O2 O2 Flow FiO2 Ox Delivery Rate 04/11 0804 98 98 04/11 0540 79 99 04/11 0400 98 BIPAP 30% 04/11 0317 87 99 04/11 0033 92 97 04/11 0000 97.2 101 22 154/80 97 BIPAP 30% 04/11 0000 97 BIPAP 30% 04/10 2210 89 99 04/10 2000 98 BIPAP 30% 04/10 1915 82 97 04/10 1600 96 BIPAP 30% 04/10 1600 96.5 101 22 140/86 96 BIPAP 30% 04/10 1510 90 95 04/10 1200 100 Ventilator 30% Exam General Appearance: well developed/nourished, no apparent distress, alert, awake , on BiPAP initially, later on nasal canula Other Physical Findings: Head: normal appearance, lower lip wound present, no change from yesterday Ears, Nose, Throat: normal pharynx, normal ENT inspection Neck: normal inspection, supple Respiratory: normal breath sounds, no respiratory distress now, no longer intubated (was successfully extubated yesterday) Cardiovascular: regular rate/rhythm Gastrointestinal: normal bowel sounds, soft, non-tender Extremities: normal inspection, normal capillary refill, no change form yesterday Skin: intact, normal color, warm/dry Weaning Parameters NIF: 48 Minute Volume: 7.0 Resp rate: 15 Vt: 620 Heart Rate: 87 Weaning Schedule Start Time: 0942 Minute Volume: 5.6 Resp Rate: 12 Vt: 440 Heart Rate: 87 End Time: 1900 Minute Volume: 6.39 Resp Rate: 15 Vt: 420 Heart Rate: 83 Start Time: 0950 Minute Volume: 7.99 Resp Rate: 29 Vt: 273 Heart Rate: 88 End Time: 1111 Minute Volume: 6.79 Resp Rate: 24 Vt: 475 Heart Rate: 79 Nutrition Nutrition: NPO Current Medications: Current Medications Sig/Garrick Start time Last Medication Dose Route Stop Time Status Admin Acetaminophen 1,000 MG Q6-PRN PRN 03/17 1630 AC 03/20 N/A 1 UNIT IV 1552 Acyclovir 1 SULEMAN Q5 04/06 1200 AC 04/11 TOP 0921 Albuterol Sulfate 3 ML ONCE ONE 04/10 1515 DC 04/10 INH 04/10 1516 1514 Ampicillin Sodium/ 3,000 MG Q6 04/10 1800 AC 04/11 Sulbactam Sodium IV 04/23 0400 0607 Sodium Chloride 100 ML Ampicillin Sodium/ 3,000 MG Q6 04/06 1212 DC 04/10 Sulbactam Sodium IV 1148 Sodium Chloride 100 ML Furosemide 20 MG ONCE ONE 04/10 1530 DC 04/10 IV 04/10 1531 1539 Furosemide 20 MG ONCE ONE 04/10 1300 DC 04/10 IV 04/10 1301 1255 Heparin Sodium 5,000 UNIT Q8 03/25 1400 AC 04/11 (Porcine) NM 0553 Hydralazine HCl 10 MG ONE TIME ONE 04/10 1415 DC 04/10 IV 04/10 1416 1425 Hydralazine HCl 10 MG Q8 PRN 03/23 1315 AC 04/10 IV 1425 Insulin Human Regular 0 Q6 04/08 0600 04/11 SC 0551 Levetiracetam 1,500 MG Q12H 03/28 0600 AC 04/11 Sodium Chloride 100 ML IV 0547 Levothyroxine Sodium 12.5 MCG DAILY 03/19 1000 AC 04/11 IV 1127 Methylprednisolone 40 MG ONCE ONE 04/10 1300 DC IV 04/10 1301 Methylprednisolone 40 MG ONCE ONE 04/10 1245 DC 04/10 IV 04/10 1246 1255 Metoprolol Tartrate 5 MG ONCE ONE 04/10 1345 DC 04/10 IV 04/10 1346 1337 Pantoprazole Sodium 40 MG DAILY 03/18 1000 AC 04/11 IV 0924 Polyethylene Glycol 17 GM DAILY PRN 03/31 1215 AC 04/02 PO 0025 Racepinephrine 0.5 ML ONCE ONE 04/10 1300 DC 04/10 INH 04/10 1301 1245 Sodium Chloride 1,000 ML Q20H 04/01 0845 DC 04/10 IV 1208 Valproate Sodium 1,000 MG Q8H 03/28 0200 AC 04/11 Sodium Chloride 100 ML IV 0924 CXR Findings: IMPRESSION: Tubes removed. Minor linear atelectasis or scarring at the left costophrenic angle. Otherwise, no acute cardiopulmonary process. DICTATED BY: KISHAN SNOWDEN MD DATE/TIME DICTATED:04/11/16802 LEVEE SUPERINTENDENT:PAUL DATE/TIME TRANSCRIBED:04/11/16802 Impression/Plan Impression/Problem List Impression: This is a 70 year old female with PMH of hypotension, hyperlipidemia, hypothyroidism DM who came was brought to hospital after being found unresponsive. She had one day of otalgia and difficulty hearing. Found down and unresponsive, subsequently brought to on 03/17/2016. In ED was found to have Tmax 102, AMS/agitation, CT with pneumocephalus in temporal lobe, and opacification of mastoid air cells. Due to concern for bacterial meningitis 2/2 otitis she was admitted to ICU. She has had prolonged ICU stay. Of note, during admission fluoro-guided LP by IR pt had an episode of emesis and likely aspirated. CXR showed corresponding suspicious opacity. She subsequently desatted into the 60s and required BiPAP. Subsequently on March 25 patient had episode of hypertension with BP over 200 systolic, and was satting in the low 60s despite BiPAP. She was intubated; procedure was complicated by cardiopulmonary arrest. Patient was successfully resuscitated. She is currently intubated, off all pressors and hemodynamically stable. Her hospital course has been complicated by: Aspiration pneumonia, periodic hypotension, new- onset seizures, and increasing mastoid opacification treated by bilateral ear tubes. She is being managed in the intensive care unit for the following issues: Respiratory: Pt was intubated on 03/25/2016 because she had long periods of apnea on her blood pressure went up to 200 systolic. While she was being intubated patient went into cardiopulmonary arrest. One round of CPR was done. Patient attained ROSC. Now, pt continues to be intubated but under no sedation. Patient was ventilator dependent until today, with failing weaning trials, but is doing much better with wenaing today. * Patient extubated YESTERDAY after assessment by Dr Treviño, Dr Morejon, id (Dr Kelly), Respiratory Therapist. * 04/10/16 1400: Patient's respiratory rate increased and she was having respiratory distress: Put on BiPAP. * Aspiration precautions. Patient already completed course of Unasyn for aspiration pneumonia during the beginning of her hospital course. * Today is day 6 of Unasyn IV, and she has not spiked fever and her vitals have been stable except for resp status. * She was able to go off BiPAP and use nasal canula to breathe. * Continue total respiratory care. Neuro/ID: 1. Step Pneumo Meningitis: Patient has strep pneumo meningitis confirmed by CSF culture and blood culture. Finished 4 day course of Decadron. Initial CSF white count was 28,000 and repeat LP showed white blood cell of only 42 and third LP showed WBC of 14 and 1 RBC. 2x TTEs and one SAMUEL have both been negative for any valvular pathology. * Her mental status has been slowly but progressively getting better . Today, she is able to follow commands by nodding her head, weaning her arms, and see tries to speak as well although her voice is not clear yet. * She did have seizure while she was intubated, EEG was done, and was started on antiseizure meds. Second EEG was negative. * Got treated with 14 days of ceftriaxone (stopped on 03/31/2016) and vancomycin intermittently. Vanco given Mar 18- then Mar 25-Mar 28. Note that one culture of her LRC grew staph aureus. negative for MRSA; negative cxr. She was then re- started on ceftriaxone and D/C on 04/06/2013 and started on Unasyn on 04/06/16 * Continue to monitor mental status 2. Mastoid Opacification: she got bilateral ear tube placement on 04/13/2016 to address the bilateral mastoid opacification seen on CT. Initially, patient had opacification on the left mastoid, repeat CT about a week later showed opacification extending to the right. Initially was concern for continued strep pneumo infection. However, the fluid cultures are negative for any suspicious organism, just growing coag negative staph which is likely contaminant. Repeat CT-head with IV contrast on 04/03 showed no change. On speaking with neuroradiologist there seems to be possibility of a communicating hydrocephalus and she does have some meningeal inflammation. * We will continue Unasyn and per ID, if she becomes hypotensive again, per Dr. Salazar, start IV vancomycin with a goal trough of 15-20. * Daily chest x-ray until intubated * Thank you Neuro consult * Thank you ENT consult * ESR was 75 on 04/07/16 3. New onset Seizures: Patient has new onset seizures which started early a.m. on 03/24/2016. Since then she has had a repeat seizure activity, at least 2 episodes of GTC. The rest seem to be focal, localized to her right arm. EEG about a week ago showed corresponding epileptiform activity in left hemisphere. Pt currently on Keppra and Depakote IV at increased doses. Second EEG negative. * Appreciate Neurology consult * Con't Keppra and Depakote * CT head done, does not show acute changes * Neuro wants repeat read of coronal and sagittal views to make sure that it is not empyema/abscess that might need draining. Waiting for the repeat read. CVS: Patient had an episode of hypotensionon 04/05/2016, lowest blood pressure recorded was 87/48. She was given 3.5 L of fluids did not respond and subsequently was started on 2.5 g of levothyroxine. She adequately responded blood pressures reaching 120s and 130s systolic. Levophed was turned off. She got a lumbar puncture on 04/04/2016 and was given 1 mg Ativan and propofol for sedation. Likely a combination of the procedure and propofol resulted in hypotension in this fragile patient. Patient is currently hemodynamically stable and off pressors however she continuously ventilated. Note that when patient was first intubated she was started on both Levophed and Rashid-Synephrine. Over a period of days she was able to be weaned off all pressors. * Strict I's and O's * Measure prealbumin Heme/Onc: Stable. Will con't monitor. Msk: Moving r. side less than left initially. * Consider PT and long-term rehabilitation now, once patient is more stable and extubated GI: placed Dobbhoff on 03/20. * Kangaroo feeding nasogastric tube has been placed today, and placement has been confirmed with stat chest x-ray which shows the position of tip of the tube to be in gastric body area. See medical procedure note for details. * Needs Nutrition consult francisco in AM. Consult already placed today. * RISS * Protonix Con't Synthroid. FULL CODE TUBE FEED to continue from tomorrow. CHEM/ALPS DVT PPX Problem List: 1. Sepsis 2. Meningitis Pain Ratin Pain Location: cannot assess Pain Goal: Remain pain free Pain Plan: prn Tomorrow's Labs & Rationales: ICU bundle, CBC to f/u on sepsis and dyselectrolytemia Plan DVT/Prophylaxis: pharmacological ICU bundle, CBC to f/u on sepsis and dyselectrolytemia Plan DVT/Prophylaxis: pharmacological
[2016-04-11 08:00] VITALS: BP 148/76
--- NOTE | 2016-04-11 08:34 | RADIOLOGY REPORT ---
EXAMINATION: XR PORTABLE CHEST CLINICAL INFORMATION: Patient intubated. Confirm endotracheal tube placement. COMPARISON: 04/10/2016 TECHNIQUE: Portable AP view of the chest was obtained. FINDINGS: The endotracheal and nasogastric tubes have been removed. The heart is normal in size. There is minor linear atelectasis or scarring in the left costophrenic angle. The lungs are otherwise clear. There are no other interval changes. IMPRESSION: Tubes removed. Minor linear atelectasis or scarring at the left costophrenic angle. Otherwise, no acute cardiopulmonary process.
--- NOTE | 2016-04-11 10:06 | PN- CRCU ---
Subjective HPI/Critical Care Issues: The patient did well several hours post extubation yesterday. In the afternoon, the patient had a large bowel movement requiring her to lay flat for clean up. After laying flat, the patient developed increased respiratory distress and was placed on BiPAP. She is currently awake, and following commands. She has been given a break off BiPAP and appears comfortable. Her ABG this morning shows a pH of 7.50, PCO2 26, PO2 87, and a bicarbonate of 20. Objective Current Medications: Current Medications Sig/Garrick Start time Last Medication Dose Route Stop Time Status Admin Acetaminophen 1,000 MG Q6-PRN PRN 03/17 1630 AC 03/20 N/A 1 UNIT IV 1552 Acyclovir 1 SULEMAN Q5 04/06 1200 AC 04/11 TOP 0921 Albuterol Sulfate 3 ML ONCE ONE 04/10 1515 DC 04/10 INH 04/10 1516 1514 Ampicillin Sodium/ 3,000 MG Q6 04/10 1800 AC 04/11 Sulbactam Sodium IV 04/23 0400 0607 Sodium Chloride 100 ML Ampicillin Sodium/ 3,000 MG Q6 04/06 1212 DC 04/10 Sulbactam Sodium IV 1148 Sodium Chloride 100 ML Furosemide 20 MG ONCE ONE 04/10 1530 DC 04/10 IV 04/10 1531 1539 Furosemide 20 MG ONCE ONE 04/10 1300 DC 04/10 IV 04/10 1301 1255 Heparin Sodium 5,000 UNIT Q8 03/25 1400 AC 04/11 (Porcine) FL 0553 Hydralazine HCl 10 MG ONE TIME ONE 04/10 1415 DC 04/10 IV 04/10 1416 1425 Hydralazine HCl 10 MG Q8 PRN 03/23 1315 AC 04/10 IV 1425 Insulin Human Regular 0 Q6 04/08 0600 AC 04/11 SC 0551 Levetiracetam 1,500 MG Q12H 03/28 0600 AC 04/11 Sodium Chloride 100 ML IV 0547 Levothyroxine Sodium 12.5 MCG DAILY 03/19 1000 AC 04/10 IV 1144 Methylprednisolone 40 MG ONCE ONE 04/10 1300 DC IV 04/10 1301 Methylprednisolone 40 MG ONCE ONE 04/10 1245 DC 04/10 IV 04/10 1246 1255 Metoprolol Tartrate 5 MG ONCE ONE 04/10 1345 DC 04/10 IV 02/16 1346 1337 Pantoprazole Sodium 40 MG DAILY 03/18 1000 AC 04/11 IV 0924 Polyethylene Glycol 17 GM DAILY PRN 03/31 1215 AC 04/02 PO 0025 Racepinephrine 0.5 ML ONCE ONE 04/10 1300 DC 04/10 INH 04/10 1301 1245 Sodium Chloride 1,000 ML Q20H 04/01 0845 DC 04/10 IV 1208 Valproate Sodium 1,000 MG Q8H 03/28 0200 AC 04/11 Sodium Chloride 100 ML IV 0924 Vital Signs & I&O Last 24 Hrs of Vitals and I&O: Vital Signs Date Time Temp Pulse Resp B/P Pulse O2 O2 Flow FiO2 Ox Delivery Rate 04/11 0804 98 98 04/11 0540 79 99 04/11 0400 98 BIPAP 30% 04/11 0317 87 99 04/11 0033 92 97 04/11 0000 97.2 101 22 154/80 97 BIPAP 30% 04/11 0000 97 BIPAP 30% 04/10 2210 89 99 04/10 2000 98 BIPAP 30% 04/10 1915 82 97 04/10 1600 96 BIPAP 30% 04/10 1600 96.5 101 22 140/86 96 BIPAP 30% 04/10 1510 90 95 04/10 1200 100 Ventilator 30% Intake & Output 04/11 1600 04/11 0800 04/11 0000 Intake Total 400 420 Output Total 395 1818 Balance 5 -1398 Intake, IV 400 420 Number 1 1 Bowel Movements Output, Urine 395 1818 Exam General Appearance: awake, comfortable Head: atraumatic, normal appearance Neck: normal inspection, supple Respiratory: no respiratory distress, a few scattered rhonchi are heard Cardiovascular: regular rate/rhythm Abdomen: normal bowel sounds, soft, non-tender Extremities: no edema Skin: intact, normal color, warm/dry Results Last 24 Hrs of Lab Results: Laboratory Tests 04/11/16 0535: pH 7.51 H, pCO2 40, pO2 124 H, HCO3 31 H, ABG O2 Sat (Measured) 98.0, P-50 ( Temp Corrected) Y, Carboxyhemoglobin 0.4 L, O2 Concentration % 30%, Temperature 97.6, Respiration Rate 20, O2 Delivery Method VISION-FFM, Vent Mode ST, Expiratory Pressure 6, Inspiratory Pressure 18, Phlebotomy Draw Site LEFT RADIAL 04/11/16 0400: Anion Gap 8, Estimated GFR > 60, Glucose 105 H, Calcium 8.5, Phosphorus 3.5, Magnesium 1.9, Total Bilirubin 0.3, AST 21, ALT 27, Albumin 2.8 L, CBC w Diff NO MAN DIFF REQ, RBC 4.37, MCV 86.5, MCH 28.5, RDW 15.3 H, MPV 6.5 L, Gran % 63.2, Lymphocytes % 17.9 L, Monocytes % 18.3 H, Eosinophils % 0.2, Basophils % 0.4, Absolute Granulocytes 7.1 H, Absolute Lymphocytes 2.0, Absolute Monocytes 2.1 H, Absolute Eosinophils 0, Absolute Basophils 0, PUBS MCHC 32.9 L 04/10/16 1950: pH 7.49 H, pCO2 41, pO2 114 H, HCO3 31 H, ABG O2 Sat (Measured) 97.0, P-50 ( Temp Corrected) N, Carboxyhemoglobin 0.9 L, O2 Concentration % 30%, Temperature 97.0, Respiration Rate 24, O2 Delivery Method ESPRIT, Vent Mode ST, Expiratory Pressure 6, Inspiratory Pressure 18, Phlebotomy Draw Site LEFT BRACHIAL 04/10/16 1200: pH 7.53 H, pCO2 35, pO2 103 H, HCO3 29 H, ABG O2 Sat (Measured) 98.0, P-50 ( Temp Corrected) YES, Carboxyhemoglobin 0.5 L, O2 Concentration % 30%, Temperature 97.0, O2 Delivery Method T-PIECE, Phlebotomy Draw Site LEFT RADIAL Impression/Plan Impression/Plan Impression/Plan: 1. Toxic/metabolic encephalopathy, with ? cerebritis and mastoiditis, no further seizures. Mental status slowly improving. 2. Acute anemia - Hgb now stable. 3. Respiratory failure secondary to ventilatory failure - day 17 mechanical ventilation. The patient is having prolonged periods of apnea and we will therefore pursue tracheostomy later today. 4. Malnutrition. Recommendations: * Tube feeds on hold. * Please order a formal swallowing evaluation. * Advance diet if able. * Continue Unasyn per ID. * Continue to follow antiseizure regimen as per neurology. * Continue DVT and GI prophylaxis/ventilator bundle. * Place the patient on BiPAP if there is any evidence of respiratory distress. * Continue all supportive care for now, and continue to monitor in [facility]CU.
--- NOTE | 2016-04-11 11:00 | NUR ---
Patient is awake and alert, able to state name- will occasionally follow commands. Can move all extremities but generaized weakness is noted. 1:1 sitter is at the bedside- Wrist restraints have been d/c. NSR on tele monitor, HR= 80-90's. SBP: 140-150's- no s/s of cardiac distress is noted. She has been on 3L nc since 0815- lungs are diminished and a weak non productive cough is noted. O2 sats 86%- SOB when turning however O2 sats remained stable. Abdomen is soft and non tender with + bowel sounds. INC of stool- NPO at this time for a swallow eval that is pending. Dominguez in place draining clear yellow urine. Trace generalized edema- no areas of pressure injury are currently noted. LOYDA PICC line in place and is WNL. No s/s of pain are currently noted and vitals remain stable. Will continue to closely monitor patient.
--- NOTE | 2016-04-11 13:21 | PN- Infect Dx ---
Subjective Subjective: No fever; previous events noted. She did well several hours post extubation yesterday. In the afternoon, the patient had a large bowel movement requiring her to lay flat while cleaned up. After laying flat, the patient developed increased respiratory distress and was placed on BiPAP. Currently off BiPAP; able to answer question; ineffective cough. Increased FiO2 requirements to 100% from 60% earlier today. Review of Systems Comments: 12 points reviewed as noted, otherwise negative. Objective Last 24 Hrs of Vital Signs/I&O Vital Signs Date Time Temp Pulse Resp B/P Pulse O2 O2 Flow FiO2 Ox Delivery Rate 04/11 1200 95 Nasal 3.0L Cannula 04/11 0804 98 98 04/11 0800 99.0 98 20 148/76 98 BIPAP 30% 04/11 0800 98 BIPAP 30% 04/11 0540 79 99 04/11 0400 98 BIPAP 30% 04/11 0317 87 99 04/11 0033 92 97 04/11 0000 97.2 101 22 154/80 97 BIPAP 30% 04/11 0000 97 BIPAP 30% 04/10 2210 89 99 04/10 2000 98 BIPAP 30% 04/10 1915 82 97 04/10 1600 96 BIPAP 30% 04/10 1600 96.5 101 22 140/86 96 BIPAP 30% 04/10 1510 90 95 Intake & Output 04/11 1600 04/11 0800 04/11 0000 Intake Total 400 420 Output Total 395 1818 Balance 5 -1398 Intake, IV 400 420 Number 1 1 Bowel Movements Output, Urine 395 1818 Physical Exam Other Physical Findings: General Appearance: awake, comfortable Head: atraumatic, normal appearance Neck: normal inspection, supple Respiratory: no respiratory distress, a few scattered rhonchi are heard Cardiovascular: regular rate/rhythm Abdomen: normal bowel sounds, soft, non-tender Extremities: no edema Skin: intact, normal color, warm/dry Results Last 24 Hours of Lab Results: Laboratory Tests 04/11 04/11 0535 0400 Blood Gas pH (7.35 - 7.45 PH) 7.51 H pCO2 (35 - 45 TORR) 40 pO2 (80 - 100 TORR) 124 H HCO3 (21 - 28 MEQ/L) 31 H ABG O2 Sat (Measured) (>96.0 %) 98.0 P-50 (Temp Corrected) Y Carboxyhemoglobin (1.5 - 5.0 %) 0.4 L O2 Concentration % 30% Temperature (97.0 - 100.0 FARH) 97.6 Respiration Rate (BPM) 20 O2 Delivery Method VISION-FFM Vent Mode ST Expiratory Pressure (CM H2O P) 6 Inspiratory Pressure (CM H2O P) 18 Chemistry Sodium (137 - 145 mmol/L) 144 Potassium (3.5 - 5.1 mmol/L) 3.7 Chloride (98 - 107 mmol/L) 100 Carbon Dioxide (22 - 30 mmol/L) 36 H Anion Gap (5 - 16) 8 BUN (7 - 17 mg/dL) 17 Creatinine (0.5 - 1.0 mg/dL) 0.6 Estimated GFR (>60 ml/min) > 60 Glucose (65 - 99 mg/dL) 105 H Calcium (8.4 - 10.2 mg/dL) 8.5 Phosphorus (2.5 - 4.5 mg/dL) 3.5 Magnesium (1.6 - 2.3 mg/dL) 1.9 Total Bilirubin (0.2 - 1.3 mg/dL) 0.3 AST (14 - 36 U/L) 21 ALT (9 - 52 U/L) 27 Albumin (3.5 - 5.0 g/dL) 2.8 L Hematology CBC w Diff NO MAN DIFF REQ WBC (4.8 - 10.8 /CUMM) 11.2 H RBC (4.20 - 5.40 /CUMM) 4.37 Hgb (12.0 - 16.0 G/DL) 12.4 Hct (37 - 47 %) 37.8 MCV (81.0 - 99.0 FL) 86.5 MCH (27.0 - 31.0 PG) 28.5 RDW (11.5 - 14.5 %) 15.3 H Plt Count (130 - 400 /CUMM) 391 MPV (7.4 - 10.4 FL) 6.5 L Gran % (42.2 - 75.2 %) 63.2 Lymphocytes % (20.5 - 51.1 %) 17.9 L Monocytes % (1.7 - 9.3 %) 18.3 H Eosinophils % (0 - 5 %) 0.2 Basophils % (0.0 - 2.0 %) 0.4 Absolute Granulocytes (1.4 - 6.5 /CUMM) 7.1 H Absolute Lymphocytes (1.2 - 3.4 /CUMM) 2.0 Absolute Monocytes (0.10 - 0.60 /CUMM) 2.1 H Absolute Eosinophils (0.0 - 0.7 /CUMM) 0 Absolute Basophils (0.0 - 0.2 /CUMM) 0 PUBS MCHC (33.0 - 37.0 G/DL) 32.9 L Miscellaneous Phlebotomy Draw Site LEFT RADIAL 04/10 1949 Blood Gas pH (7.35 - 7.45 PH) 7.49 H pCO2 (35 - 45 TORR) 41 pO2 (80 - 100 TORR) 114 H HCO3 (21 - 28 MEQ/L) 31 H ABG O2 Sat (Measured) (>96.0 %) 97.0 P-50 (Temp Corrected) N Carboxyhemoglobin (1.5 - 5.0 %) 0.9 L O2 Concentration % 30% Temperature (97.0 - 100.0 FARH) 97.0 Respiration Rate (BPM) 24 O2 Delivery Method ESPRIT Vent Mode ST Expiratory Pressure (CM H2O P) 6 Inspiratory Pressure (CM H2O P) 18 Miscellaneous Phlebotomy Draw Site LEFT BRACHIAL Last 24 Hours of Keaton Results: n/a Recent Imaging Studies: SERVICE DATE: 04/11/16 EXAM TYPE: RAD - XRY-PORTABLE CHEST XRAY EXAMINATION: XR PORTABLE CHEST CLINICAL INFORMATION: Patient intubated. Confirm endotracheal tube placement. COMPARISON: 04/10/2016 TECHNIQUE: Portable AP view of the chest was obtained. FINDINGS: The endotracheal and nasogastric tubes have been removed. The heart is normal in size. There is minor linear atelectasis or scarring in the left costophrenic angle. The lungs are otherwise clear. There are no other interval changes. IMPRESSION: Tubes removed. Minor linear atelectasis or scarring at the left costophrenic angle. Otherwise, no acute cardiopulmonary process. 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 Bilateral mastoiditis/sinus dx. Pneumococcal meningitis (treated). 2. Respiratory failure/day 1 s/p extubation; remains high risk aspiration pneumonia 3. Mild leukocytosis Suggestion: 1. Continue Unasyn 3 gm q 6 h D #6/14. Aspiration precautions HOB 45 degrees at all times. Repeat swallow eval on Thursday; per team Theron feed placement planned. 2. Call if fever. 3. Trend CBC, BMP.
--- NOTE | 2016-04-11 14:59 | PN- Infect Dx ---
Subjective Subjective: She is sitting comfortably in the bed, was extubated yesterday, was on BiPAP overnight and until morning, but currently saturating well on nasal canula. Ineffective cough. Dominguez patent. Of note, she had a respiratory distress yesterday afternoon, requiring BiPAP untill this AM. Review of Systems Comments: 12 points reviewed as noted, otherwise negative. Objective Last 24 Hrs of Vital Signs/I&O Vital Signs Date Time Temp Pulse Resp B/P Pulse O2 O2 Flow FiO2 Ox Delivery Rate 04/11 1200 95 Nasal 3.0L Cannula 04/11 0804 98 98 04/11 0800 99.0 98 20 148/76 98 BIPAP 30% 04/11 0800 98 BIPAP 30% 04/11 0540 79 99 04/11 0400 98 BIPAP 30% 04/11 0317 87 99 04/11 0033 92 97 04/11 0000 97.2 101 22 154/80 97 BIPAP 30% 04/11 0000 97 BIPAP 30% 04/10 2210 89 99 04/10 2000 98 BIPAP 30% 04/10 1915 82 97 04/10 1600 96 BIPAP 30% 04/10 1600 96.5 101 22 140/86 96 BIPAP 30% 04/10 1510 90 95 Intake & Output 04/11 1600 04/11 0800 04/11 0000 Intake Total 400 420 Output Total 395 1818 Balance 5 -1398 Intake, IV 400 420 Number 1 1 Bowel Movements Output, Urine 395 1818 Physical Exam Other Physical Findings: General Appearance: awake, comfortable Neuro: awake, answers questions appropriately Head: atraumatic, normal appearance, lower lip lesion healing Neck: normal inspection, supple Respiratory: no respiratory distress, a few scattered rhonchi are heard Cardiovascular: regular rate/rhythm Abdomen: normal bowel sounds, soft, non-tender Extremities: no edema Skin: intact, normal color, warm/dry Results Last 24 Hours of Lab Results: Laboratory Tests 04/11 04/11 0535 0400 Blood Gas pH (7.35 - 7.45 PH) 7.51 H pCO2 (35 - 45 TORR) 40 pO2 (80 - 100 TORR) 124 H HCO3 (21 - 28 MEQ/L) 31 H ABG O2 Sat (Measured) (>96.0 %) 98.0 P-50 (Temp Corrected) Y Carboxyhemoglobin (1.5 - 5.0 %) 0.4 L O2 Concentration % 30% Temperature (97.0 - 100.0 FARH) 97.6 Respiration Rate (BPM) 20 O2 Delivery Method VISION-FFM Vent Mode ST Expiratory Pressure (CM H2O P) 6 Inspiratory Pressure (CM H2O P) 18 Chemistry Sodium (137 - 145 mmol/L) 144 Potassium (3.5 - 5.1 mmol/L) 3.7 Chloride (98 - 107 mmol/L) 100 Carbon Dioxide (22 - 30 mmol/L) 36 H Anion Gap (5 - 16) 8 BUN (7 - 17 mg/dL) 17 Creatinine (0.5 - 1.0 mg/dL) 0.6 Estimated GFR (>60 ml/min) > 60 Glucose (65 - 99 mg/dL) 105 H Calcium (8.4 - 10.2 mg/dL) 8.5 Phosphorus (2.5 - 4.5 mg/dL) 3.5 Magnesium (1.6 - 2.3 mg/dL) 1.9 Total Bilirubin (0.2 - 1.3 mg/dL) 0.3 AST (14 - 36 U/L) 21 ALT (9 - 52 U/L) 27 Albumin (3.5 - 5.0 g/dL) 2.8 L Hematology CBC w Diff NO MAN DIFF REQ WBC (4.8 - 10.8 /CUMM) 11.2 H RBC (4.20 - 5.40 /CUMM) 4.37 Hgb (12.0 - 16.0 G/DL) 12.4 Hct (37 - 47 %) 37.8 MCV (81.0 - 99.0 FL) 86.5 MCH (27.0 - 31.0 PG) 28.5 RDW (11.5 - 14.5 %) 15.3 H Plt Count (130 - 400 /CUMM) 391 MPV (7.4 - 10.4 FL) 6.5 L Gran % (42.2 - 75.2 %) 63.2 Lymphocytes % (20.5 - 51.1 %) 17.9 L Monocytes % (1.7 - 9.3 %) 18.3 H Eosinophils % (0 - 5 %) 0.2 Basophils % (0.0 - 2.0 %) 0.4 Absolute Granulocytes (1.4 - 6.5 /CUMM) 7.1 H Absolute Lymphocytes (1.2 - 3.4 /CUMM) 2.0 Absolute Monocytes (0.10 - 0.60 /CUMM) 2.1 H Absolute Eosinophils (0.0 - 0.7 /CUMM) 0 Absolute Basophils (0.0 - 0.2 /CUMM) 0 PUBS MCHC (33.0 - 37.0 G/DL) 32.9 L Miscellaneous Phlebotomy Draw Site LEFT RADIAL 04/10 1949 Blood Gas pH (7.35 - 7.45 PH) 7.49 H pCO2 (35 - 45 TORR) 41 pO2 (80 - 100 TORR) 114 H HCO3 (21 - 28 MEQ/L) 31 H ABG O2 Sat (Measured) (>96.0 %) 97.0 P-50 (Temp Corrected) N Carboxyhemoglobin (1.5 - 5.0 %) 0.9 L O2 Concentration % 30% Temperature (97.0 - 100.0 FARH) 97.0 Respiration Rate (BPM) 24 O2 Delivery Method ESPRIT Vent Mode ST Expiratory Pressure (CM H2O P) 6 Inspiratory Pressure (CM H2O P) 18 Miscellaneous Phlebotomy Draw Site LEFT BRACHIAL Last 24 Hours of Keaton Results: SPEC #: [id number] MANJEET: 04/03/16 STATUS: COMP RECD: 04/03/[address]: NICCI ALDRICH, KAILA SOURCE: LOWER RESP ENTR: 04/03/[address]: AUSTIN ALDRICH,Talisha DICKSON SPDESC: SPUTUMTRAP ALESHIA ALDRICH,EILEEN Tatum ORDERED: LOWER RESPIRATO Procedure Result > GRAM STAIN Final 04/03/161234 WHITE BLOOD CELLS MANY SQUAMOUS CELLS RARE GRAM POSITIVE COCCI MANY GRAM NEGATIVE RODS FEW GRAM NEGATIVE COCCI FEW GRAM POSITIVE RODS RARE > LOWER RESPIRATORY CULTURE Final 04/06/16-1039 Moderate growth of: 1.ACINETOBACTER BAUMANNII 2. STAPH AUREUS ISOLATED Acin bauma Staph sabrina RX AB RX AB ------ -- ------ -- CEFAZOLIN S AMOX/CLAV AUGM S AMP/SULB-UNASYN S S CIPROFLOXACIN S GENTAMICIN S TETRACYCLINE S TRIMETH/SULFA S S AZITHROMYCIN S CLINDAMYCIN S ERYTHROMYCIN S OXACILLIN S VANCOMYCIN S 1. ACINETOBACTER BAUMANNII RX AB ------ -- AMPICILLIN/SULBACTAM S CIPROFLOXACIN S GENTAMICIN S TRIMETHOPRIM/SULFAMETHOXAZOLE S 2. STAPH AUREUS RX ABN ------ --- 2. STAPH AUREUS RX AB ------ -- CEFAZOLIN S AMOXICILLIN/CLAVULINIC ACID S AMPICILLIN/SULBACTAM S TETRACYCLINE S TRIMETHOPRIM/SULFAMETHOXAZOLE S AZITHROMYCIN S CLINDAMYCIN S ERYTHROMYCIN S OXACILLIN S VANCOMYCIN S Recent Imaging Studies: CXR IMPRESSION: Tubes removed. Minor linear atelectasis or scarring at the left costophrenic angle. Otherwise, no acute cardiopulmonary process. 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 Bilateral mastoiditis/sinus dx. Pneumococcal meningitis (treated); L ear hearing loss 2. Aspiration precautions 3. Mild leukocytosis Suggestion: 1. Continue Unasyn 3 gm q 6 h D #6/14. Aspiration precautions HOB 45 degrees at all times. Repeat swallow eval on Thursday; per team Theron feed placement planned. 2. Call if fever. 3. Trend CBC, BMP.
[2016-04-11 16:00] VITALS: BP 148/50
--- NOTE | 2016-04-11 16:48 | Proc Note Internal Medicine ---
Medicine Procedure Procedure Date: 04/11/16 Medical Procedure(s): FEEDING TUBE PLACEMENT Pre-Operative Diagnosis: Recently extubated (yesterday), failed swallow evaluation today Post-Operative Diagnosis: Same, with KO-Tube in situ Estimated Blood Loss: none Anesthesia: n/a Procedure Findings: Identification and procedure confirmed with nurse and patient. Patient's vitals stable with sp02 97% before the procedure. Patient explained about the process and obtained nonverbal consent. Formal consent was taken with her power of patent attorney Kevin Leslie () earlier today. KO-tube required length measured by adding length between tip of nose to ear to xiphoid process. 10ml water flushed into the tube to lubricate the metal end of the tube. Tube was lubricated, and inserted up to 55 cm at nostril level. Proper placement was confirmed clinically with pushing air through the tube and Examined over the Epigastric Area and Cardia Area of the stomach. Oxygen saturation was well above 95% throughout the whole process. Stat portable chest x-ray has been ordered. Awaiting confirmation. Update: CXR shows correct placement of feeding tube at gastric body area. Resident informed.
--- NOTE | 2016-04-11 17:19 | RADIOLOGY REPORT ---
EXAMINATION: XR PORTABLE CHEST CLINICAL INFORMATION: Confirm placement of K0-tube (feeding tube). Placed at 55 cm, confirmed clinically by gastric air push. COMPARISON: Several prior chest x-rays, most recent of which is dated 04/06/2016. TECHNIQUE: Portable semierect AP view of the chest was obtained. FINDINGS: Feeding tube is seen with its tip projected over the gastric body. The cardiomediastinal silhouette is within normal limits in size. Lungs bilaterally are symmetrically mildly hypoinflated with bibasilar crowding of bronchovascular markings seen. No consolidation, effusion or pneumothorax is seen. Bony structures are unremarkable. IMPRESSION: Feeding tube tip projects over the gastric body.
--- NOTE | 2016-04-11 18:38 | NUR ---
RAMON tube was placed to the left nares by house staff at approx 1630- pt tolerated procedure well. CXR done for confirmation. Nutrition evaluation ordered and tube feeds to start tomorrow. Soft bilateral wrist restraints were placed at approx 1830 for continued attempts to pull out KO tube- Dr. Kelly in to evaluate. Vitals remain stable. Will continue to closely monitor patient.
--- NOTE | 2016-04-11 21:00 | NUR ---
PATIENT ALERT. ANSWERS CORRECTLY TO FIRST AND LAST NAME AND AGE. REQUESTING WATER, APPROPRIATE SPEECH.VIRAL. MOVES UPPER EXTRMITIES SPONTANEOUSLY. SOFT WRIST RESTRAINTS IN PLACE TO MAINTAIN KEOFEED TUBE.MONITOR SR.NASAL O2 ON AT 3L. SAT=97%.
[2016-04-12] VITALS: BP 144/70
[2016-04-12 05:48] LABS: HEMATOCRIT 35.5 % (37-47); MEAN CORPUSCULAR HGB 28.7 PG (27.0-31.0); MEAN CORPUSCULAR HGB CONC 32.3 G/DL (33.0-37.0); MEAN CORPUSCULAR VOLUME 88.8 FL (81.0-99.0); MEAN PLATELET VOLUME 6.6 FL (7.4-10.4); PLATELET COUNT 346 /CUMM (130-400); RED BLOOD CELL CT 3.99 /CUMM (4.20-5.40)
[2016-04-12 08:00] VITALS: BP 143/75
--- NOTE | 2016-04-12 08:18 | PN- Resident CRCU ---
Subjective HPI/CRCU Issues: No acute events overnight. Patient seen and examined this morning. She is awake, alert, following commands and mumbling incoherently. She remains extubated with good oxygen saturations on 3 L NC. Later in the day she was noted to be lethargic and with labored breathing and was placed on BiPAP. Respiratory distress resolved with BiPAP and she appeared more alert and comfortable afterwards. Objective Vital Signs & I&O Last 8 Hrs of Vitals and I&O: Vital Signs Date Time Temp Pulse Resp B/P Pulse O2 O2 Flow FiO2 Ox Delivery Rate 04/12 1208 75 97 04/12 1200 98 Nasal 3.0L Cannula 04/12 0800 98 Nasal 3.0L Cannula 04/12 0800 97.8 92 22 143/75 98 Nasal 3.0L Cannula 04/12 0400 95 Nasal 3.0L Cannula 04/12 0000 97.8 76 18 144/70 97 Nasal 3.0L Cannula 04/12 0000 97 Nasal 3.0L Cannula 04/11 2000 97 Nasal 3.0L Cannula 04/11 1600 98.2 90 24 148/50 96 Nasal 3.0L Cannula 04/11 1600 96 Nasal 3.0L Cannula Intake & Output 04/12 1600 Intake Total 680 Output Total 800 Balance -120 Intake, IV 420 Intake, Oral 0 Intake, Tube 60 Feeding Intake, Tube 200 Irrigant Number 1 Bowel Movements Output, Urine 800 Patient 84.113 kg Weight Exam General Appearance: well developed/nourished, no apparent distress, alert, awake , comfortable, follows commands, mumbles incoherently Head: atraumatic, normal appearance Ears, Nose, Throat: lesion on lower lip Neck: supple Cardiovascular: regular rate/rhythm Gastrointestinal: soft, non-tender, positive bowel sounds Extremities: no edema Skin: intact, warm/dry Current Medications: Current Medications Sig/Garrick Start time Last Medication Dose Route Stop Time Status Admin Acetaminophen 1,000 MG Q6-PRN PRN 03/17 1630 AC 03/20 N/A 1 UNIT IV 1552 Acyclovir 1 SULEMAN Q5 04/06 1200 AC 04/12 TOP 1120 Ampicillin Sodium/ 3,000 MG Q6 04/10 1800 AC 04/12 Sulbactam Sodium IV 04/23 0400 1121 Sodium Chloride 100 ML Heparin Sodium 5,000 UNIT Q8 03/25 1400 AC 04/12 (Porcine) SC 1331 Hydralazine HCl 10 MG Q8 PRN 03/23 1315 AC 04/10 IV 1425 Insulin Human Regular 0 Q6 04/08 06 04/12 SC 1200 Levetiracetam 1,500 MG Q12H 03/28 0600 04/12 Sodium Chloride 100 ML IV 0541 Levothyroxine Sodium 12.5 MCG DAILY 03/19 1000 AC 04/12 IV 0956 Magnesium Sulfate 1 GM ONCE ONE 04/12 0845 ME 04/12 Dextrose/Water 100 ML IV 04/12 1244 0851 Pantoprazole Sodium 40 MG DAILY 03/18 1000 04/12 IV 0957 Polyethylene Glycol 17 GM DAILY PRN 03/31 1215 AC 04/02 PO 0025 Potassium Chloride 10 MEQ ONCE ONE 04/12 0845 DC 04/12 IV 04/12 0846 0851 Potassium Chloride 10 MEQ ONCE ONE 04/12 0845 DC 04/12 IV 04/12 0846 0851 Valproate Sodium 1,000 MG Q8H 03/28 0200 04/12 Sodium Chloride 100 ML IV 0956 Results Results: Laboratory Tests 04/12 0400 Chemistry Sodium (137 - 145 mmol/L) 144 Potassium (3.5 - 5.1 mmol/L) 3.6 Chloride (98 - 107 mmol/L) 102 Carbon Dioxide (22 - 30 mmol/L) 36 H Anion Gap (5 - 16) 6 BUN (7 - 17 mg/dL) 13 Creatinine (0.5 - 1.0 mg/dL) 0.6 Estimated GFR (>60 ml/min) > 60 Glucose (65 - 99 mg/dL) 95 Calcium (8.4 - 10.2 mg/dL) 8.2 L Phosphorus (2.5 - 4.5 mg/dL) 3.3 Magnesium (1.6 - 2.3 mg/dL) 1.9 Total Bilirubin (0.2 - 1.3 mg/dL) 0.4 AST (14 - 36 U/L) 24 ALT (9 - 52 U/L) 23 Albumin (3.5 - 5.0 g/dL) 2.5 L Hematology CBC w Diff MAN DIFF ORDERED WBC (4.8 - 10.8 /CUMM) 9.0 RBC (4.20 - 5.40 /CUMM) 3.99 L Hgb (12.0 - 16.0 G/DL) 11.5 L Hct (37 - 47 %) 35.5 L MCV (81.0 - 99.0 FL) 88.8 MCH (27.0 - 31.0 PG) 28.7 RDW (11.5 - 14.5 %) 15.0 H Plt Count (130 - 400 /CUMM) 346 MPV (7.4 - 10.4 FL) 6.6 L Segmented Neutrophils (42.2 - 75.2 %) 54 Band Neutrophils (0.0 - 5.0 %) 3 Lymphocytes (20.5 - 51.1 %) 31 Monocytes (1.7 - 9.3 %) 10 H Eosinophils (0 - 5.0 %) 2 Platelet Estimate (ADEQUATE) ADEQUATE Polychromasia 1+ Hypochromic-Microcytic 1+ Poikilocytosis 1+ Anisocytosis 1+ Stomatocytes FEW PUBS MCHC (33.0 - 37.0 G/DL) 32.3 L CXR Findings: Feeding tube tip projects over the gastric body. Impression/Plan Impression/Problem List Impression: 70 y/o F with PMHx of HLD, T2DM and hypothyroidism who presented with pneumococcal meningitis with a hospital course complicated by acute respiratory failure requiring intubation, currently extubated, and new-onset seizures, with residual mental status deficits. Problem List: 1. Pneumococcal meningitis 2. Respiratory failure 3. Seizures 4. Anemia 5. T2DM (type 2 diabetes mellitus) 6. Altered mental state 7. Hypothyroidism Pain Ratin Tomorrow's Labs & Rationales: CBC and ICU bundle (ICU patient) Plan Respiratory: #Respiratory failure: Remains extubated. Episode of respiratory distress today which resolved with BiPAP. * Place patient on BiPAP as needed for respiratory distress. * Wean down oxygen as tolerated. * Maintain aspiration precautions. Infectious Diseases: #Pneumococcal meningitis: Remains afebrile. Mild leukocytosis yesterday has resolved. On day 7 of IV Unasyn. * ID following. Appreciate their recs. * Continue Unasyn 3 g IV Q6H for a total of 14 days. * Continue to monitor temperature and WBC count. Cardiovascular: Remains hemodynamically stable. * Strict I/Os. * Continue to monitor for signs of hemodynamical instability. Hematology: #Acute anemia: H/H stable. * Continue to monitor H/H. Metabolic: #T2DM: * Accu-checks and Novolin NPO sliding scale Q6H. #Hypothyroidism: * Continue levothyroxine 12.5 mg IV QD. Alimentary: Tube feeds Neurological: #Altered mental status: Mental status improving. Remains without seizures. * Continue valproate 1 g IV Q8H and Keppra 1.5 g IV Q12H. Skin: No issues. DVT/Prophylaxis: pharmacological Code Status: Full Code
--- NOTE | 2016-04-12 10:24 | PN- Pulmonary ---
Subjective HPI/Critical Care Issues: Patient is lethargic but remains extubated with adequate oxygen saturations KO feeding tube is within the stomach Objective Current Medications: Current Medications Sig/Garrick Start time Last Medication Dose Route Stop Time Status Admin Acetaminophen 1,000 MG Q6-PRN PRN 03/17 1630 AC 03/20 N/A 1 UNIT IV 1552 Acyclovir 1 SULEMAN Q5 04/06 1200 AC 04/12 TOP 0801 Ampicillin Sodium/ 3,000 MG Q6 04/10 1800 AC 04/12 Sulbactam Sodium IV 04/23 0400 0639 Sodium Chloride 100 ML Heparin Sodium 5,000 UNIT Q8 03/25 1400 AC 04/12 (Porcine) SC 0545 Hydralazine HCl 10 MG Q8 PRN 03/23 1315 AC 04/10 IV 1425 Insulin Human Regular 0 Q6 04/08 0600 AC 04/12 SC 0539 Levetiracetam 1,500 MG Q12H 03/28 0600 AC 04/12 Sodium Chloride 100 ML IV 0541 Levothyroxine Sodium 12.5 MCG DAILY 03/19 1000 AC 04/12 IV 0956 Magnesium Sulfate 1 GM ONCE ONE 04/12 0845 AC 04/12 Dextrose/Water 100 ML IV 04/12 1244 0851 Pantoprazole Sodium 40 MG DAILY 03/18 1000 AC 04/12 IV 0957 Polyethylene Glycol 17 GM DAILY PRN 03/31 1215 AC 04/02 PO 0025 Potassium Chloride 10 MEQ ONCE ONE 04/12 0845 DC 04/12 IV 04/12 0846 0851 Potassium Chloride 10 MEQ ONCE ONE 04/12 0845 DC 04/12 IV 04/12 0846 0851 Valproate Sodium 1,000 MG Q8H 03/28 0200 AC 04/12 Sodium Chloride 100 ML IV 0956 Vital Signs & I&O Last 24 Hrs of Vitals and I&O: Vital Signs Date Time Temp Pulse Resp B/P Pulse O2 O2 Flow FiO2 Ox Delivery Rate 04/12 0800 98 Nasal 3.0L Cannula 04/12 0800 97.8 92 22 143/75 98 Nasal 3.0L Cannula 04/12 0400 95 Nasal 3.0L Cannula 04/12 0000 97.8 76 18 144/70 97 Nasal 3.0L Cannula 04/12 0000 97 Nasal 3.0L Cannula 04/11 2000 97 Nasal 3.0L Cannula 04/11 1600 98.2 90 24 148/50 96 Nasal 3.0L Cannula 04/11 1600 96 Nasal 3.0L Cannula 04/11 1200 95 Nasal 3.0L Cannula Intake & Output 04/12 1600 04/12 0800 04/12 0000 Intake Total 400 340 Output Total 720 460 Balance -320 -120 Intake, IV 400 340 Output, Urine 720 460 Patient 185 lb 176 lb Weight Since saturation 3 L 98% blood pressure is stable exam for chest shows diminished breath sounds cardiac exam shows regular S1 and S2 without murmurs Impression/Plan Impression/Plan Impression/Plan: 70-year-old woman recovering from pneumococcal meningitis with residual mental status abnormalities. Recommendations: Continue antibiotics begin tube feedings as tolerated Taper FiO2 his saturations allow maintain aspiration precautions.
--- NOTE | 2016-04-12 11:22 | PN- Infect Dx ---
Subjective Subjective: No fever. Increased lethargy. Remains extubated. Review of Systems Comments: 10 points reviewed as noted, otherwise negative. Objective Last 24 Hrs of Vital Signs/I&O Vital Signs Date Time Temp Pulse Resp B/P Pulse O2 O2 Flow FiO2 Ox Delivery Rate 04/12 08 98 Nasal 3.0L Cannula 04/12 08 97.8 92 22 143/75 98 Nasal 3.0L Cannula 04/12 0400 95 Nasal 3.0L Cannula 04/12 0000 97.8 76 18 144/70 97 Nasal 3.0L Cannula 04/12 0000 97 Nasal 3.0L Cannula 04/11 2000 97 Nasal 3.0L Cannula 04/11 1600 98.2 90 24 148/50 96 Nasal 3.0L Cannula 04/11 1600 96 Nasal 3.0L Cannula 04/11 1200 95 Nasal 3.0L Cannula Intake & Output 04/12 1600 04/12 0800 04/12 0000 Intake Total 400 340 Output Total 720 460 Balance -320 -120 Intake, IV 400 340 Output, Urine 720 460 Patient 185 lb 176 lb Weight Physical Exam Other Physical Findings: General Appearance: well nourished, breathing appears labored Neuro: lethargic, not opening eyes to voice or chest rub Head: atraumatic, normal appearance, lower lip lesion healing Neck: normal inspection, supple Respiratory: BS present, currently breathing using also abd muscles Cardiovascular: regular rate/rhythm Abdomen: normal bowel sounds, soft, non-tender Extremities: no edema Skin: intact, normal color, warm/dry Results Last 24 Hours of Lab Results: Laboratory Tests 04/12 399 Chemistry Sodium (137 - 145 mmol/L) 144 Potassium (3.5 - 5.1 mmol/L) 3.6 Chloride (98 - 107 mmol/L) 102 Carbon Dioxide (22 - 30 mmol/L) 36 H Anion Gap (5 - 16) 6 BUN (7 - 17 mg/dL) 13 Creatinine (0.5 - 1.0 mg/dL) 0.6 Estimated GFR (>60 ml/min) > 60 Glucose (65 - 99 mg/dL) 95 Calcium (8.4 - 10.2 mg/dL) 8.2 L Phosphorus (2.5 - 4.5 mg/dL) 3.3 Magnesium (1.6 - 2.3 mg/dL) 1.9 Total Bilirubin (0.2 - 1.3 mg/dL) 0.4 AST (14 - 36 U/L) 24 ALT (9 - 52 U/L) 23 Albumin (3.5 - 5.0 g/dL) 2.5 L Hematology CBC w Diff MAN DIFF ORDERED WBC (4.8 - 10.8 /CUMM) 9.0 RBC (4.20 - 5.40 /CUMM) 3.99 L Hgb (12.0 - 16.0 G/DL) 11.5 L Hct (37 - 47 %) 35.5 L MCV (81.0 - 99.0 FL) 88.8 MCH (27.0 - 31.0 PG) 28.7 RDW (11.5 - 14.5 %) 15.0 H Plt Count (130 - 400 /CUMM) 346 MPV (7.4 - 10.4 FL) 6.6 L Segmented Neutrophils (42.2 - 75.2 %) 54 Band Neutrophils (0.0 - 5.0 %) 3 Lymphocytes (20.5 - 51.1 %) 31 Monocytes (1.7 - 9.3 %) 10 H Eosinophils (0 - 5.0 %) 2 Platelet Estimate (ADEQUATE) ADEQUATE Polychromasia 1+ Hypochromic-Microcytic 1+ Poikilocytosis 1+ Anisocytosis 1+ Stomatocytes FEW PUBS MCHC (33.0 - 37.0 G/DL) 32.3 L Last 24 Hours of Keaton Results: N/A Recent Imaging Studies: CXR: FINDINGS: Feeding tube is seen with its tip projected over the gastric body. The cardiomediastinal silhouette is within normal limits in size. Lungs bilaterally are symmetrically mildly hypoinflated with bibasilar crowding of bronchovascular markings seen. No consolidation, effusion or pneumothorax is seen. Bony structures are unremarkable. IMPRESSION: Feeding tube tip projects over the gastric body. DICTATED BY: LYNDA PRAJAPATI MD DATE/TIME DICTATED:04/11/161712 ORDER TRACER:PAUL DATE/TIME TRANSCRIBED:04/11/161712 Assessment/Plan Impression: 1. Bilateral mastoiditis/sinus dx. Pneumococcal meningitis (treated); L ear hearing loss 2. Aspiration precautions. 3. Mild leukocytosis/resolved Suggestion: 1. Continue Unasyn 3 gm q 6 h D #7/14. Aspiration precautions HOB 45 degrees at all times. Check ABG's; BiPAP. Hold TF for now. F/U CXR. 2. Call if fever. 3. Trend CBC, BMP.
[2016-04-12 16:17] VITALS: BP 166/80
--- NOTE | 2016-04-12 18:06 | NUR ---
PT BP 180/101, IV HYDRALAZINE GIVEN, WILL CONT TO MON.
[2016-04-12 18:43] VITALS: BP 129/66
[2016-04-13] VITALS: BP 132/76
[2016-04-13 04:28] LABS: ABSOLUTE BASOPHIL COUNT 0 /CUMM (0.0-0.2); ABSOLUTE EOSINOPHIL COUNT 0 /CUMM (0.0-0.7); ABSOLUTE GRANULOCYTE CT 4.9 /CUMM (1.4-6.5); ABSOLUTE LYMPH COUNT 1.6 /CUMM (1.2-3.4); ABSOLUTE MONOCYTE COUNT 1.9 /CUMM (0.10-0.60); BASOPHIL % 0.5 % (0.0-2.0); EOSINOPHIL % 0.2 % (0-5); GRANULOCYTE % 57.8 % (42.2-75.2); MEAN CORPUSCULAR HGB 28.8 PG (27.0-31.0); MEAN CORPUSCULAR HGB CONC 33.1 G/DL (33.0-37.0); MEAN CORPUSCULAR VOLUME 87.1 FL (81.0-99.0); MEAN PLATELET VOLUME 6.4 FL (7.4-10.4); PLATELET COUNT 339 /CUMM (130-400); RBC DISTRIBUTION WIDTH 15.5 % (11.5-14.5); RED BLOOD CELL CT 4.14 /CUMM (4.20-5.40); WHITE BLOOD CELL COUNT 8.4 /CUMM (4.8-10.8)
[2016-04-13 08:00] VITALS: BP 152/69
--- NOTE | 2016-04-13 09:45 | PN- Resident CRCU ---
Subjective HPI/CRCU Issues: Patient in ICU for Streptococcus pneumoniae meningitis, s/p intubation and mechanical ventilation. I followed up and examined the patient today. She is sitting comfortably in the bed, was extubated 2 days ago, was on BiPAP overnight, but currently saturating well on nasal canula. Respiratory rate is still high at 24-27. She has not spiked fever, vitals have been stable overnight, no issues overnight. Objective Vital Signs & I&O Last 8 Hrs of Vitals and I&O: Vital Signs Date Time Temp Pulse Resp B/P Pulse O2 O2 Flow FiO2 Ox Delivery Rate 04/13 0508 98 Nasal 3.0L Cannula Exam General Appearance: well developed/nourished, no apparent distress, alert, awake , mild distress, obese Other Physical Findings: Head: atraumatic, normal appearance Ears, Nose, Throat: lesion on lower lip now improving Neck: supple Respiratory: Bilateral decreased breath sounds, some rhonchi present but no wheezes heard Cardiovascular: regular rate/rhythm Gastrointestinal: soft, non-tender, positive bowel sounds Extremities: no edema Skin: intact, warm/dry KeoFeed Site: Nasal via left nostril Date In: 04/04/16 Still Needed: Yes Nutrition Nutrition: tube feeding Current Medications: Current Medications Sig/Garrick Start time Last Medication Dose Route Stop Time Status Admin Acetaminophen 1,000 MG Q6-PRN PRN 03/17 1630 AC 03/20 N/A 1 UNIT IV 1552 Acyclovir 1 SULEMAN Q5 04/06 1200 AC 04/13 TOP 1214 Ampicillin Sodium/ 3,000 MG Q6 04/10 1800 AC 04/13 Sulbactam Sodium IV 04/23 0400 1213 Sodium Chloride 100 ML Heparin Sodium 5,000 UNIT Q8 03/25 1400 AC 04/13 (Porcine) SC 0627 Hydralazine HCl 20 MG .STK-MED ONE 04/12 1802 DC IM 04/12 1803 Hydralazine HCl 10 MG Q8 PRN 03/23 1315 AC 04/12 IV 1805 Insulin Human Regular 0 Q6 04/08 0600 AC 04/13 SC 1214 Levetiracetam 1,500 MG Q12H 03/28 0600 AC 04/13 Sodium Chloride 100 ML IV 0603 Levothyroxine Sodium 12.5 MCG DAILY 03/19 1000 AC 04/13 IV 1045 Lorazepam 2 MG .STK-MED ONE 04/13 0045 DC IM 04/13 0046 Magnesium Sulfate 1 GM ONCE ONE 04/12 0845 DC 04/12 Dextrose/Water 100 ML IV 04/12 1244 0851 Pantoprazole Sodium 40 MG DAILY 03/18 1000 AC 04/13 IV 1044 Polyethylene Glycol 17 GM DAILY PRN 03/31 1215 AC 04/02 PO 0025 Valproate Sodium 1,000 MG Q8H 03/28 0200 AC 04/13 Sodium Chloride 100 ML IV 1044 Impression/Plan Impression/Problem List Impression: This is a 70 year old female with PMH of hypotension, hyperlipidemia, hypothyroidism DM who came was brought to hospital after being found unresponsive. She had one day of otalgia and difficulty hearing. Found down and unresponsive, subsequently brought to on 03/17/2016. In ED was found to have Tmax 102, AMS/agitation, CT with pneumocephalus in temporal lobe, and opacification of mastoid air cells. Due to concern for bacterial meningitis 2/2 otitis she was admitted to ICU. She has had prolonged ICU stay. Of note, during admission fluoro-guided LP by IR pt had an episode of emesis and likely aspirated. CXR showed corresponding suspicious opacity. She subsequently desatted into the 60s and required BiPAP. Subsequently on March 25 patient had episode of hypertension with BP over 200 systolic, and was satting in the low 60s despite BiPAP. She was intubated; procedure was complicated by cardiopulmonary arrest. Patient was successfully resuscitated. She is currently intubated, off all pressors and hemodynamically stable. Her hospital course has been complicated by: Aspiration pneumonia, periodic hypotension, new- onset seizures, and increasing mastoid opacification treated by bilateral ear tubes. She is being managed in the intensive care unit for the following issues: Respiratory: Pt was intubated on 03/25/2016 because she had long periods of apnea on her blood pressure went up to 200 systolic. While she was being intubated patient went into cardiopulmonary arrest. One round of CPR was done. Patient attained ROSC. Now, pt continues to be intubated but under no sedation. Patient was ventilator dependent until today, with failing weaning trials, but is doing much better with wenaing today. * Patient extubated two days ago (04/10/16) after assessment by Dr Treviño, Dr Morejon, ar (Dr Kelly), Respiratory Therapist. * Aspiration precautions. Patient already completed course of Unasyn for aspiration pneumonia during the beginning of her hospital course. * Today is day 6 of Unasyn IV, and she has not spiked fever and her vitals have been stable except for resp status. * She was able to go off BiPAP and use nasal canula to breathe. * Continue total respiratory care. Neuro/ID: 1. Step Pneumo Meningitis: Patient has strep pneumo meningitis confirmed by CSF culture and blood culture. Finished 4 day course of Decadron. Initial CSF white count was 28,000 and repeat LP showed white blood cell of only 42 and third LP showed WBC of 14 and 1 RBC. 2x TTEs and one SAMUEL have both been negative for any valvular pathology. * Her mental status has been slowly but progressively getting better . Today, she is able to follow commands by nodding her head, weaning her arms, and see tries to speak as well although her voice is not clear yet. * She did have seizure while she was intubated, EEG was done, and was started on antiseizure meds. Second EEG was negative. * Got treated with 14 days of ceftriaxone (stopped on 03/31/2016) and vancomycin intermittently. Vanco given Mar 18- then Mar 25-Mar 28. Note that one culture of her L[facility] grew staph aureus. negative for MRSA; negative cxr. She was then re- started on ceftriaxone and D/C on 04/06/2013 and started on Unasyn on 04/06/16 * Continue to monitor mental status 2. Mastoid Opacification: she got bilateral ear tube placement on 04/13/2016 to address the bilateral mastoid opacification seen on CT. Initially, patient had opacification on the left mastoid, repeat CT about a week later showed opacification extending to the right. Initially was concern for continued strep pneumo infection. However, the fluid cultures are negative for any suspicious organism, just growing coag negative staph which is likely contaminant. Repeat CT-head with IV contrast on 04/03 showed no change. On speaking with neuroradiologist there seems to be possibility of a communicating hydrocephalus and she does have some meningeal inflammation. * We will continue Unasyn and per ID, if she becomes hypotensive again, per Dr. Salazar, start IV vancomycin with a goal trough of 15-20. * Daily chest x-ray until intubated * Thank you Neuro consult * Thank you ENT consult * ESR was 75 on 04/07/16 3. New onset Seizures: Patient has new onset seizures which started early a.m. on 03/24/2016. Since then she has had a repeat seizure activity, at least 2 episodes of GTC. The rest seem to be focal, localized to her right arm. EEG about a week ago showed corresponding epileptiform activity in left hemisphere. Pt currently on Keppra and Depakote IV at increased doses. Second EEG negative. * Appreciate Neurology consult * Con't Keppra and Depakote * CT head done, does not show acute changes * Neuro wants repeat read of coronal and sagittal views to make sure that it is not empyema/abscess that might need draining. Waiting for the repeat read. CVS: Patient had an episode of hypotensionon 04/05/2016, lowest blood pressure recorded was 87/48. She was given 3.5 L of fluids did not respond and subsequently was started on 2.5 g of levothyroxine. She adequately responded blood pressures reaching 120s and 130s systolic. Levophed was turned off. She got a lumbar puncture on 04/04/2016 and was given 1 mg Ativan and propofol for sedation. Likely a combination of the procedure and propofol resulted in hypotension in this fragile patient. Patient is currently hemodynamically stable and off pressors however she continuously ventilated. Note that when patient was first intubated she was started on both Levophed and Rashid-Synephrine. Over a period of days she was able to be weaned off all pressors. * Strict I's and O's * Measure prealbumin Metabolic: #Diabetes Mellitus: -Accuchecks and Novolin NPO sliding scale Q6H. Heme/Onc: Stable. Will con't monitor. Msk: Moving r. side less than left initially. * Consider PT and long-term rehabilitation now, once patient is more stable and extubated GI: placed KO tube on 04/11/16 * Receiving tubes feeds now. * RISS * Protonix Con't Synthroid. FULL CODE TUBE FEED to continue from tomorrow. CHEM/ALPS DVT PPX Problem List: 1. Sepsis 2. Meningitis 3. Toxic encephalopathy 4. T2DM (type 2 diabetes mellitus) 5. Hypothyroidism 6. Anemia Pain Ratin Pain Location: difficult to assess Pain Goal: Pain 4 or less Pain Plan: prn Tomorrow's Labs & Rationales: ICU lab bundle, CBC to check for dyselectrolytemia, and sings of sepsis/ infection Plan DVT/Prophylaxis: pharmacological Code Status: Full Code
--- NOTE | 2016-04-13 10:28 | PN- Pulmonary ---
Subjective HPI/Critical Care Issues: Patient is more awake alert and verbalizing she is tolerating enteral feedings Objective Current Medications: Current Medications Sig/Garrick Start time Last Medication Dose Route Stop Time Status Admin Acetaminophen 1,000 MG Q6-PRN PRN 03/17 1630 AC 03/20 N/A 1 UNIT IV 1552 Acyclovir 1 SULEMAN Q5 04/06 1200 AC 04/12 TOP 2345 Ampicillin Sodium/ 3,000 MG Q6 04/10 1800 AC 04/13 Sulbactam Sodium IV 04/23 0400 0626 Sodium Chloride 100 ML Heparin Sodium 5,000 UNIT Q8 03/25 1400 AC 04/13 (Porcine) SC 0627 Hydralazine HCl 20 MG .STK-MED ONE 04/12 1802 DC IM 04/12 1803 Hydralazine HCl 10 MG Q8 PRN 03/23 1315 AC 04/12 IV 1805 Insulin Human Regular 0 Q6 04/08 0600 AC 04/13 SC 0627 Levetiracetam 1,500 MG Q12H 03/28 0600 04/13 Sodium Chloride 100 ML IV 0603 Levothyroxine Sodium 12.5 MCG DAILY 03/19 1000 AC 04/12 IV 0956 Lorazepam 2 MG .STK-MED ONE 04/13 0045 DC IM 04/13 0046 Magnesium Sulfate 1 GM ONCE ONE 04/12 0845 DC 04/12 Dextrose/Water 100 ML IV 04/12 1244 0851 Pantoprazole Sodium 40 MG DAILY 03/18 1000 AC 04/12 IV 0957 Polyethylene Glycol 17 GM DAILY PRN 03/31 1215 AC 04/02 PO 0025 Valproate Sodium 1,000 MG Q8H 03/28 0200 04/13 Sodium Chloride 100 ML IV 0230 Vital Signs & I&O Last 24 Hrs of Vitals and I&O: Vital Signs Date Time Temp Pulse Resp B/P Pulse O2 O2 Flow FiO2 Ox Delivery Rate 04/13 0508 98 Nasal 3.0L Cannula 04/13 0053 106 96 04/13 0000 97 Nasal 3.0L Cannula 04/13 0000 96.8 96 27 132/76 97 Nasal 3.0L Cannula 04/12 2030 96 Nasal 3.0L Cannula 04/12 1937 94 Nasal 3.0L Cannula 04/12 1843 129/66 04/12 1805 180/101 04/12 1617 97.0 87 26 166/80 97 Nasal 3.0L Cannula 04/12 1600 98 Nasal 3.0L Cannula 04/12 1208 75 97 04/12 1200 98 Nasal 3.0L Cannula Intake & Output 04/13 1600 04/13 0800 04/13 0000 Intake Total 1080 765 Output Total 650 520 Balance 430 245 Intake, IV 520 300 Intake, Tube 360 215 Feeding Intake, Tube 200 250 Irrigant Number 1 0 Bowel Movements Output, Urine 650 520 And saturation 3 L 98% exam for chest shows rare rhonchi cardiac exam shows a regular S1 and S2 without murmurs Impression/Plan Impression/Plan Impression/Plan: 70-year-old woman recovering from pneumococcal meningitis with residual mental status abnormalities. Recommendations: Continue antibiotics begin tube feedings as tolerated Taper FiO2 his saturations allow maintain aspiration precautions. Continue current level of care
--- NOTE | 2016-04-13 11:45 | PN- Infect Dx ---
Subjective Subjective: No fever; mental status much improved; tolerating brayan feed TF. Review of Systems Comments: 12 points reviewed as noted, otherwise negative. Objective Last 24 Hrs of Vital Signs/I&O Vital Signs Date Time Temp Pulse Resp B/P Pulse O2 O2 Flow FiO2 Ox Delivery Rate 04/13 0508 98 Nasal 3.0L Cannula 04/13 0053 106 96 04/13 0000 97 Nasal 3.0L Cannula 04/13 0000 96.8 96 27 132/76 97 Nasal 3.0L Cannula 04/12 2030 96 Nasal 3.0L Cannula 04/12 1937 94 Nasal 3.0L Cannula 04/12 1843 129/66 04/12 1805 180/101 04/12 1617 97.0 87 26 166/80 97 Nasal 3.0L Cannula 04/12 1600 98 Nasal 3.0L Cannula 04/12 1208 75 97 04/12 1200 98 Nasal 3.0L Cannula Intake & Output 04/13 1600 04/13 0800 04/13 0000 Intake Total 1080 765 Output Total 650 520 Balance 430 245 Intake, IV 520 300 Intake, Tube 360 215 Feeding Intake, Tube 200 250 Irrigant Number 1 0 Bowel Movements Output, Urine 650 520 Physical Exam Other Physical Findings: General Appearance: well nourished, NAD Neuro: awake, able to answer questions, decreased hearing L ear Head: atraumatic, normal appearance, lower lip lesion healing Neck: normal inspection, supple Respiratory: BS present, no wheezing/rales Cardiovascular: regular rate/rhythm Abdomen: normal bowel sounds, soft, non-tender Dominguez patent Extremities: no pedal edema Skin: intact, normal color, warm/dry Results Last 24 Hours of Lab Results: Laboratory Tests 04/13 0405 Chemistry Sodium (137 - 145 mmol/L) 139 Potassium (3.5 - 5.1 mmol/L) 4.0 Chloride (98 - 107 mmol/L) 99 Carbon Dioxide (22 - 30 mmol/L) 34 H Anion Gap (5 - 16) 6 BUN (7 - 17 mg/dL) 13 Creatinine (0.5 - 1.0 mg/dL) 0.5 Estimated GFR (>60 ml/min) > 60 Glucose (65 - 99 mg/dL) 149 H Calcium (8.4 - 10.2 mg/dL) 8.3 L Phosphorus (2.5 - 4.5 mg/dL) 2.7 Magnesium (1.6 - 2.3 mg/dL) 1.9 Total Bilirubin (0.2 - 1.3 mg/dL) 0.5 AST (14 - 36 U/L) 29 ALT (9 - 52 U/L) 23 Albumin (3.5 - 5.0 g/dL) 2.6 L Hematology CBC w Diff NO MAN DIFF REQ WBC (4.8 - 10.8 /CUMM) 8.4 RBC (4.20 - 5.40 /CUMM) 4.14 L Hgb (12.0 - 16.0 G/DL) 11.9 L Hct (37 - 47 %) 36.0 L MCV (81.0 - 99.0 FL) 87.1 MCH (27.0 - 31.0 PG) 28.8 RDW (11.5 - 14.5 %) 15.5 H Plt Count (130 - 400 /CUMM) 339 MPV (7.4 - 10.4 FL) 6.4 L Gran % (42.2 - 75.2 %) 57.8 Lymphocytes % (20.5 - 51.1 %) 18.9 L Monocytes % (1.7 - 9.3 %) 22.6 H Eosinophils % (0 - 5 %) 0.2 Basophils % (0.0 - 2.0 %) 0.5 Absolute Granulocytes (1.4 - 6.5 /CUMM) 4.9 Absolute Lymphocytes (1.2 - 3.4 /CUMM) 1.6 Absolute Monocytes (0.10 - 0.60 /CUMM) 1.9 H Absolute Eosinophils (0.0 - 0.7 /CUMM) 0 Absolute Basophils (0.0 - 0.2 /CUMM) 0 PUBS MCHC (33.0 - 37.0 G/DL) 33.1 Last 24 Hours of Keaton Results: C #: [id number] MANJEET: 04/03/16 STATUS: COMP RECD: 04/03/16 [facility] DR: NICCI ALDRICH, KAILA SOURCE: LOWER RESP ENTR: 04/03/[address]: AUSTIN ALDRICH,Talisha DICKSON SPDESC: SPUTUMTRAP ALESHIA ALDRICH,EILEEN Tatum ORDERED: LOWER RESPIRATO Procedure Result > GRAM STAIN Final 04/03/16-1234 WHITE BLOOD CELLS MANY SQUAMOUS CELLS RARE GRAM POSITIVE COCCI MANY GRAM NEGATIVE RODS FEW GRAM NEGATIVE COCCI FEW GRAM POSITIVE RODS RARE > LOWER RESPIRATORY CULTURE Final 04/06/16 Moderate growth of: 1.ACINETOBACTER BAUMANNII 2. STAPH AUREUS ISOLATED Acin bauma Staph sabrina RX AB RX AB ------ -- ------ -- CEFAZOLIN S AMOX/CLAV AUGM S AMP/SULB-UNASYN S S CIPROFLOXACIN S GENTAMICIN S TETRACYCLINE S TRIMETH/SULFA S S AZITHROMYCIN S CLINDAMYCIN S ERYTHROMYCIN S OXACILLIN S VANCOMYCIN S 1. ACINETOBACTER BAUMANNII RX AB ------ -- AMPICILLIN/SULBACTAM S CIPROFLOXACIN S GENTAMICIN S TRIMETHOPRIM/SULFAMETHOXAZOLE S 2. STAPH AUREUS RX ABN ------ --- 2. STAPH AUREUS RX AB ------ -- CEFAZOLIN S AMOXICILLIN/CLAVULINIC ACID S AMPICILLIN/SULBACTAM S TETRACYCLINE S TRIMETHOPRIM/SULFAMETHOXAZOLE S AZITHROMYCIN S CLINDAMYCIN S ERYTHROMYCIN S OXACILLIN S VANCOMYCIN S Recent Imaging Studies: SERVICE DATE: 04/11/16 EXAM TYPE: RAD - XRY-PORTABLE CHEST XRAY EXAMINATION: XR PORTABLE CHEST CLINICAL INFORMATION: Confirm placement of K0-tube (feeding tube). Placed at 55 cm, confirmed clinically by gastric air push. COMPARISON: Several prior chest x-rays, most recent of which is dated 04/06/2016. TECHNIQUE: Portable semierect AP view of the chest was obtained. FINDINGS: Feeding tube is seen with its tip projected over the gastric body. The cardiomediastinal silhouette is within normal limits in size. Lungs bilaterally are symmetrically mildly hypoinflated with bibasilar crowding of bronchovascular markings seen. No consolidation, effusion or pneumothorax is seen. Bony structures are unremarkable. IMPRESSION: Feeding tube tip projects over the gastric body. DICTATED BY: LYNDA PRAJAPATI MD DATE/TIME DICTATED:04/11/161712 EGG FACTORY WORKER:PAUL DATE/TIME TRANSCRIBED:04/11/161712 CONFIDENTIAL, DO NOT COPY WITHOUT APPROPRIATE AUTHORIZATION. <Electronically signed in Other Vendor System> SIGNED BY: ALO ALDRICH,LYNDA N. [id number] Assessment/Plan Impression: 1. Bilateral mastoiditis. 2. Pneumococcal meningitis (treated); L ear hearing loss 3. Mild leukocytosis/resolved 4. Acute resp faillure; extubated for few days, clinically improving Suggestion: 1. Continue Unasyn 3 gm q 6 h D #8/14. Aspiration precautions HOB 45 degrees at all times. Swallow eval 04/14. 2. Call if fever. 3. Trend CBC, BMP. Dr. Benjamin back 04/14/16.
[2016-04-13 16:00] VITALS: BP 140/78
--- NOTE | 2016-04-13 20:27 | NUR ---
PT VERY DROWSY, AROUSABLE TO VERBAL STIMULI, CONFUSED, NOT FOLLOWING COMMANDS AT PRESENT. BILATERAL SOFT WRIST RESTRAINTS ON. BREATH SOUNDS CLEAR WITH DIMINISHED BREATH SOUNDS AT BASES BILATERALLY. NO COUGH, SOB OR RESP DISTRESS NOTED AT PRESENT. SEE FLOW SHEET FOR VS, 02 SATS, I/O'S. MONITOR SHOWS NSR, NO ECTOPY NOTED AT PRESENT. BP STABLE AT PRESENT. ABD SOFT, NONTENDER, NONDISTENDED, POSITIVE BOWEL SOUNDS. KAOFEED TUBE IN PLACE-ON TUBE FEEDS-TOLERATING WELL AT PRESENT. SIMMONS IN PLACE-GOOD URINE OUTPUT OF CLEAR YELLOW URINE AT PRESENT. SKIN INTACT. SCAB TO LOWER LIP. NO SEIZURE ACTIVITY NOTED AT PRESENT
[2016-04-14] VITALS: BP 124/60
--- NOTE | 2016-04-14 00:46 | NUR ---
PT DIFFICULT TO AROUSE, STERNAL RUB GIVEN, PUPILS 6MM AND REACT BRISKLY-REPORTED TO DR. GRAJEDA WHO CAME AND EXAMINED PT-ABLE TO GET TO OPEN EYES TO VERBAL STIMULI AND STERNAL RUB, BUT REMAINS NONVERBAL. NO SEIZURE ACTIVITY NOTED. DR. GRAJEDA FEELS PT IN DEEP SLEEP-WILL MONITOR
[2016-04-14 05:02] LABS: ABSOLUTE BASOPHIL COUNT 0 /CUMM (0.0-0.2); ABSOLUTE EOSINOPHIL COUNT 0 /CUMM (0.0-0.7); ABSOLUTE GRANULOCYTE CT 3.3 /CUMM (1.4-6.5); ABSOLUTE LYMPH COUNT 1.6 /CUMM (1.2-3.4); ABSOLUTE MONOCYTE COUNT 1.1 /CUMM (0.10-0.60); BASOPHIL % 0.4 % (0.0-2.0); EOSINOPHIL % 0.8 % (0-5); GRANULOCYTE % 53.9 % (42.2-75.2); HEMATOCRIT 32.8 % (37-47); MEAN CORPUSCULAR HGB 28.8 PG (27.0-31.0); MEAN CORPUSCULAR HGB CONC 32.6 G/DL (33.0-37.0); MEAN CORPUSCULAR VOLUME 88.4 FL (81.0-99.0); MEAN PLATELET VOLUME 6.7 FL (7.4-10.4); PLATELET COUNT 246 /CUMM (130-400); RBC DISTRIBUTION WIDTH 15.5 % (11.5-14.5); RED BLOOD CELL CT 3.72 /CUMM (4.20-5.40); WHITE BLOOD CELL COUNT 6.2 /CUMM (4.8-10.8)
--- NOTE | 2016-04-14 07:13 | PN- Resident CRCU ---
Subjective HPI/CRCU Issues: Patient in ICU for Streptococcus pneumoniae meningitis and mastoiditis, s/p intubation and mechanical ventilation. I followed up and examined the patient today. She is sitting comfortably in the bed, was extubated 3 days ago, was initially on BiPAP but currently saturating well on nasal canula. Respiratory rate is still high at 24-27. She is much more verbal and has purposeful conversation now. She has not spiked fever, vitals have been stable overnight, no issues overnight. Objective Vital Signs & I&O Last 8 Hrs of Vitals and I&O: Vital Signs Date Time Temp Pulse Resp B/P Pulse O2 O2 Flow FiO2 Ox Delivery Rate 04/14 1248 100.0 04/14 08 97.6 92 30 146/80 94 Nasal 3.0L Cannula 04/14 08 95 Nasal 3.0L Cannula Intake & Output 04/14 1600 Intake Total Output Total Balance Patient 81.647 kg Weight Exam General Appearance: well developed/nourished, no apparent distress, alert, awake , comfortable, obese Other Physical Findings: Head: atraumatic, normal appearance Ears, Nose, Throat: lesion on lower lip now improving Neck: supple Respiratory: Bilateral decreased breath sounds, some rhonchi present but no wheezes heard Cardiovascular: regular rate/rhythm Gastrointestinal: soft, non-tender, positive bowel sounds Extremities: no edema Skin: intact, warm/dry KeoFeed Site: via left nostril Date In: 04/11/16 Still Needed: Yes Nutrition Nutrition: tube feeding Current Medications: Current Medications Sig/Garrick Start time Last Medication Dose Route Stop Time Status Admin Acetaminophen 1,000 MG Q6-PRN PRN 03/17 1630 AC 04/14 N/A 1 UNIT IV 1248 Acyclovir 1 SULEMAN Q5 04/06 1200 AC 04/14 TOP 1249 Albuterol Sulfate 3 ML EVERY 4 HRS/AWAKE .. 04/13 1700 AC 04/13 INH 1530 Ampicillin Sodium/ 3,000 MG Q6 04/10 1800 DC 04/14 Sulbactam Sodium IV 04/23 0400 0654 Sodium Chloride 100 ML Heparin Sodium 5,000 UNIT Q8 03/25 1400 AC 04/14 (Porcine) SC 1412 Hydralazine HCl 10 MG Q8 PRN 03/23 1315 AC 04/12 IV 1805 Insulin Human Regular 0 Q6 04/08 0600 AC 04/14 SC 1418 Levetiracetam 1,500 MG Q12H 03/28 0600 AC 04/14 Sodium Chloride 100 ML IV 0627 Levothyroxine Sodium 12.5 MCG DAILY 03/19 1000 AC 04/14 IV 0921 Pantoprazole Sodium 40 MG DAILY 03/18 1000 AC 04/14 IV 0921 Polyethylene Glycol 17 GM DAILY PRN 03/31 1215 AC 04/02 PO 0025 Valproate Sodium 1,000 MG Q8H 03/28 0200 AC 04/14 Sodium Chloride 100 ML IV 0922 Miscellaneous Findings: MRI Head: IMPRESSION: Limited study with motion artifacts. 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 A few scattered foci of diffusion signal abnormality within the frontoparietal sulci as well bilaterally. Fluid and enhancement in the mastoid air cells and middle ear cavities, worse on the right side. DICTATED BY: MUKESH FREEMAN MD DATE/TIME DICTATED:04/14/161348 ELECTRIC RELAY TESTER:PAUL DATE/TIME TRANSCRIBED:04/14/161348 Impression/Plan Impression/Problem List Impression: This is a 70 year old female with PMH of hypotension, hyperlipidemia, hypothyroidism DM who came was brought to hospital after being found unresponsive. She had one day of otalgia and difficulty hearing. Found down and unresponsive, subsequently brought to on 03/17/2016. In ED was found to have Tmax 102, AMS/agitation, CT with pneumocephalus in temporal lobe, and opacification of mastoid air cells. Due to concern for bacterial meningitis 2/2 otitis she was admitted to ICU. She has had prolonged ICU stay. Of note, during admission fluoro-guided LP by IR pt had an episode of emesis and likely aspirated. CXR showed corresponding suspicious opacity. She subsequently desatted into the 60s and required BiPAP. Subsequently on March 25 patient had episode of hypertension with BP over 200 systolic, and was satting in the low 60s despite BiPAP. She was intubated; procedure was complicated by cardiopulmonary arrest. Patient was successfully resuscitated. She was intubated (now extubated), off all pressors and hemodynamically stable. Her hospital course has been complicated by: Aspiration pneumonia, periodic hypotension, new-onset seizures, and increasing mastoid opacification treated by bilateral ear tubes. She is being managed in the intensive care unit for the following issues: Respiratory: Pt was intubated on 03/25/2016 because she had long periods of apnea on her blood pressure went up to 200 systolic. While she was being intubated patient went into cardiopulmonary arrest. One round of CPR was done. Patient attained ROSC. Now, pt continues to be intubated but under no sedation. Patient was ventilator dependent for a long time (16 days). * Patient extubated on 04/10/[address] Treviño, Dr Morejon, n[place] (Dr Kelly), Respiratory Therapist. * Aspiration precautions. Patient was on Unasyn for aspiration precautions/ aspiration pneumonitis, which has been discontinued today. Total Day 7 of Unasyn * She was able to go off BiPAP and use nasal canula to breathe. * Continue total respiratory care. Neuro/ID: 1. Step Pneumo Meningitis: Patient has strep pneumo meningitis confirmed by CSF culture and blood culture. Finished 4 day course of Decadron. Initial CSF white count was 28,000 and repeat LP showed white blood cell of only 42 and third LP showed WBC of 14 and 1 RBC. 2x TTEs and one SAMUEL have both been negative for any valvular pathology. * Her mental status has been slowly but progressively getting better . Today, she is able to follow commands by speaking in small sentences, expressing over her face, compared to nodding her head, weaning her arms. Her voice is not clear yet. Her cough is still weak. * She did have seizure while she was intubated, EEG was done, and was started on antiseizure meds. Second EEG was negative. * Got treated with 14 days of ceftriaxone (stopped on 03/31/2016) and vancomycin intermittently. Vanco given Mar 18- then Mar 25-Mar 28. Note that one culture of her LRC grew staph aureus. negative for MRSA; negative cxr. She was then re- started on ceftriaxone and D/C on 04/06/2013 and started on Unasyn on 04/06/16 * Continue to monitor mental status 2. Mastoid Opacification: she got bilateral ear tube placement on 04/13/2016 to address the bilateral mastoid opacification seen on CT. Initially, patient had opacification on the left mastoid, repeat CT about a week later showed opacification extending to the right. Initially was concern for continued strep pneumo infection. However, the fluid cultures are negative for any suspicious organism, just growing coag negative staph which is likely contaminant. Repeat CT-head with IV contrast on 04/03 showed no change. On speaking with neuroradiologist there seems to be possibility of a communicating hydrocephalus and she does have some meningeal inflammation. patint getting better already. * Discontinued Unasyn per ID * Thank you Neuro consult * Thank you ENT consult * ESR was 75 on 04/07/16 3. New onset Seizures: Patient has new onset seizures which started early a.m. on 03/24/2016. Since then she has had a repeat seizure activity, at least 2 episodes of GTC. The rest seem to be focal, localized to her right arm. EEG about a week ago showed corresponding epileptiform activity in left hemisphere. Pt currently on Keppra and Depakote IV at increased doses. Second EEG negative. * Appreciate Neurology consult * Con't Keppra and Depakote * CT head was done which does not show acute changes * Repeat MRI of the head today shows subacute sequela of meningoencephalitis, few diffusion signal abnormality within the frontoparietal sulci bilaterally, fluid and enhancement in the mastoid air cells and middle ear cavities worse on the right side. This finding is as expected. CVS: Patient had an episode of hypotensionon 04/05/2016, lowest blood pressure recorded was 87/48. She was given 3.5 L of fluids did not respond and subsequently was started on 2.5 g of levothyroxine. She adequately responded blood pressures reaching 120s and 130s systolic. Levophed was turned off. She got a lumbar puncture on 04/04/2016 and was given 1 mg Ativan and propofol for sedation. Likely a combination of the procedure and propofol resulted in hypotension in this fragile patient. Patient is currently hemodynamically stable and off pressors. Note that when patient was first intubated she was started on both Levophed and Rashid-Synephrine. Over a period of days she was able to be weaned off all pressors. * Strict I's and O's Metabolic: #Diabetes Mellitus: -Accuchecks and Novolin NPO sliding scale Q6H. Heme/Onc: Stable. Will con't monitor. Msk: Moving r. side less than left initially. * Consider PT and long-term rehabilitation now, once patient is more stable and extubated GI: placed KO tube on 04/11/16 * Receiving tubes feeds now. * RISS * Protonix Con't Synthroid. FULL CODE TUBE FEED to continue from tomorrow. CHEM/ALPS DVT PPX Problem List: 1. Sepsis 2. Meningitis 3. Seizures 4. Toxic encephalopathy 5. Metabolic encephalopathy 6. T2DM (type 2 diabetes mellitus) 7. Hypothyroidism Pain Ratin Pain Location: - Pain Goal: Pain 4 or less Pain Plan: prn Tomorrow's Labs & Rationales: ICU bundle, CBC to check for any sepsis, infection, and given her tube feeding status. Plan DVT/Prophylaxis: pharmacological Code Status: Full Code
--- NOTE | 2016-04-14 07:46 | NUR ---
PT WAS LETHERGIC THOUGHOUT SHIFT-ONLY AROUSABLE TO STERNAL RUB-OPENING EYES ONLY, NONVERBAL UNTIL 0600 WHEN PT AWOKE ON OWN, SPEAKING IN SIMPLE SENTENCES, IS CONFUSED. REMAINS IN BILATERAL WRIST RESTRAINTS. TOLERATING TUBE FEEDS WELL THOUGHOUT SHIFT. NO OTHER CHANGES IN PT ASSESSMENTS THOUGHOUT SHIFT
[2016-04-14 08:00] VITALS: BP 146/80
--- NOTE | 2016-04-14 09:31 | PN- CRCU ---
Subjective HPI/Critical Care Issues: The patient is awake and following commands. She denies any complaints at present. She continues to have some evidence of stridor post extubation, however this has improved overall. She remains NPO, on tube feeds. Objective Current Medications: Current Medications Sig/Garrick Start time Last Medication Dose Route Stop Time Status Admin Acetaminophen 1,000 MG Q6-PRN PRN 03/17 1630 AC 03/20 N/A 1 UNIT IV 1552 Acyclovir 1 SULEMAN Q5 04/06 1200 AC 04/14 TOP 0922 Albuterol Sulfate 3 ML EVERY 4 HRS/AWAKE .. 04/13 1700 AC 04/13 INH 1530 Ampicillin Sodium/ 3,000 MG Q6 04/10 1800 AC 04/14 Sulbactam Sodium IV 04/23 0400 0654 Sodium Chloride 100 ML Heparin Sodium 5,000 UNIT Q8 03/25 1400 AC 04/14 (Porcine) SC 0638 Hydralazine HCl 10 MG Q8 PRN 03/23 1315 AC 04/12 IV 1805 Insulin Human Regular 0 Q6 04/08 0600 AC 04/14 SC 0637 Levetiracetam 1,500 MG Q12H 03/28 0600 AC 04/14 Sodium Chloride 100 ML IV 0627 Levothyroxine Sodium 12.5 MCG DAILY 03/19 1000 AC 04/14 IV 0921 Pantoprazole Sodium 40 MG DAILY 03/18 1000 AC 04/14 IV 0921 Polyethylene Glycol 17 GM DAILY PRN 03/31 1215 AC 04/02 PO 0025 Racepinephrine 0.5 ML ONCE ONE 04/13 1545 DC 04/13 INH 04/13 1546 1545 Racepinephrine 0.5 ML ONCE ONE 04/13 1515 CAN INH 04/13 1516 Valproate Sodium 1,000 MG Q8H 03/28 0200 AC 04/14 Sodium Chloride 100 ML IV 0922 Vital Signs & I&O Last 24 Hrs of Vitals and I&O: Vital Signs Date Time Temp Pulse Resp B/P Pulse O2 O2 Flow FiO2 Ox Delivery Rate 04/14 0400 95 Nasal 3.0L Cannula 04/14 0000 95 Nasal 3.0L Cannula 04/14 0000 96.5 79 14 124/60 95 Nasal 3.0L Cannula 04/13 2000 95 Nasal 3.0L Cannula 04/13 1600 97.3 92 25 140/78 98 Nasal 3.0L Cannula 04/13 1600 98 Nasal 3.0L Cannula 04/13 1530 96 Aerosol 35% Mask 04/13 1200 95 Nasal 3.0L Cannula Intake & Output 04/14 1600 04/14 0800 04/14 0000 Intake Total 903 978 Output Total 300 445 Balance 603 533 Intake, IV 300 300 Intake, Tube 478 478 Feeding Intake, Tube 125 200 Irrigant Number 0 1 Bowel Movements Output, Urine 300 445 Exam General Appearance: awake, comfortable Head: atraumatic, normal appearance Neck: normal inspection, supple Respiratory: no respiratory distress, a few scattered rhonchi Cardiovascular: regular rate/rhythm Abdomen: normal bowel sounds, soft, non-tender Extremities: no edema Skin: intact, normal color, warm/dry Results Last 24 Hrs of Lab Results: Laboratory Tests 04/14/16 0422: Anion Gap 6, Estimated GFR > 60, Glucose 169 H, Calcium 8.2 L, Phosphorus 3.4, Magnesium 1.8, Total Bilirubin 0.4, AST 22, ALT 28, Albumin 2.3 L, CBC w Diff NO MAN DIFF REQ, RBC 3.72 L, MCV 88.4, MCH 28.8, RDW 15.5 H, MPV 6.7 L, Gran % 53.9, Lymphocytes % 26.5, Monocytes % 18.4 H, Eosinophils % 0.8, Basophils % 0.4, Absolute Granulocytes 3.3, Absolute Lymphocytes 1.6, Absolute Monocytes 1.1 H, Absolute Eosinophils 0, Absolute Basophils 0, PUBS MCHC 32.6 L Impression/Plan Impression/Plan Impression/Plan: 1. Toxic/metabolic encephalopathy, with ? cerebritis and mastoiditism mental improving. 2. Acute anemia - Hgb now stable. 3. Respiratory failure - improved post extubation. The patient does however have ongoing stridor which is concerning for possible tracheomalacia and the setting of prolonged mechanical ventilation. 4. Malnutrition. Recommendations: * Modified barium swallow as recommended by speech therapy. * Physical therapy consult, out of bed to chair today. * Continue Unasyn per ID. * Continue to follow antiseizure regimen as per neurology. * Continue DVT and GI prophylaxis/ventilator bundle. * Place the patient on BiPAP if there is any evidence of respiratory distress. * Downgrade to telemetry. * Continue all supportive care for now. Code Status: Full Code
--- NOTE | 2016-04-14 10:36 | PN- Infect Dx ---
Subjective Subjective: Events of past week reviewed with patient successfully extubated and more awake and alert. She has remained afebrile and white blood cell count has remained normal. Objective Last 24 Hrs of Vital Signs/I&O Vital Signs Date Time Temp Pulse Resp B/P Pulse O2 O2 Flow FiO2 Ox Delivery Rate 04/14 0400 95 Nasal 3.0L Cannula 04/14 0000 95 Nasal 3.0L Cannula 04/14 0000 96.5 79 14 124/60 95 Nasal 3.0L Cannula 04/13 2000 95 Nasal 3.0L Cannula 04/13 1600 97.3 92 25 140/78 98 Nasal 3.0L Cannula 04/13 1599 98 Nasal 3.0L Cannula 04/13 1530 96 Aerosol 35% Mask 04/13 1200 95 Nasal 3.0L Cannula Intake & Output 04/14 1600 04/14 0800 04/14 0000 Intake Total 903 978 Output Total 300 445 Balance 603 533 Intake, IV 300 300 Intake, Tube 478 478 Feeding Intake, Tube 125 200 Irrigant Number 0 1 Bowel Movements Output, Urine 300 445 Physical Exam Other Physical Findings: She is awake and alert, though disoriented, in no acute distress Lungs scattered rhonchi bilaterally Heart regular rhythm with no change in her 3/6 holosystolic murmur Abdomen is soft, nontender with positive bowel sounds Extremities no cyanosis, clubbing or edema; PICC remains in the right upper extremity with no inflammation at the site Dominguez catheter remains in place Results Last 24 Hours of Lab Results: Laboratory Tests 04/14 0422 Chemistry Sodium (137 - 145 mmol/L) 142 Potassium (3.5 - 5.1 mmol/L) 3.8 Chloride (98 - 107 mmol/L) 100 Carbon Dioxide (22 - 30 mmol/L) 36 H Anion Gap (5 - 16) 6 BUN (7 - 17 mg/dL) 14 Creatinine (0.5 - 1.0 mg/dL) 0.5 Estimated GFR (>60 ml/min) > 60 Glucose (65 - 99 mg/dL) 169 H Calcium (8.4 - 10.2 mg/dL) 8.2 L Phosphorus (2.5 - 4.5 mg/dL) 3.4 Magnesium (1.6 - 2.3 mg/dL) 1.8 Total Bilirubin (0.2 - 1.3 mg/dL) 0.4 AST (14 - 36 U/L) 22 ALT (9 - 52 U/L) 28 Albumin (3.5 - 5.0 g/dL) 2.3 L Hematology CBC w Diff NO MAN DIFF REQ WBC (4.8 - 10.8 /CUMM) 6.2 RBC (4.20 - 5.40 /CUMM) 3.72 L Hgb (12.0 - 16.0 G/DL) 10.7 L Hct (37 - 47 %) 32.8 L MCV (81.0 - 99.0 FL) 88.4 MCH (27.0 - 31.0 PG) 28.8 RDW (11.5 - 14.5 %) 15.5 H Plt Count (130 - 400 /CUMM) 246 MPV (7.4 - 10.4 FL) 6.7 L Gran % (42.2 - 75.2 %) 53.9 Lymphocytes % (20.5 - 51.1 %) 26.5 Monocytes % (1.7 - 9.3 %) 18.4 H Eosinophils % (0 - 5 %) 0.8 Basophils % (0.0 - 2.0 %) 0.4 Absolute Granulocytes (1.4 - 6.5 /CUMM) 3.3 Absolute Lymphocytes (1.2 - 3.4 /CUMM) 1.6 Absolute Monocytes (0.10 - 0.60 /CUMM) 1.1 H Absolute Eosinophils (0.0 - 0.7 /CUMM) 0 Absolute Basophils (0.0 - 0.2 /CUMM) 0 PUBS MCHC (33.0 - 37.0 G/DL) 32.6 L Last 24 Hours of Keaton Results: No recent cultures Assessment/Plan Impression: Overall stable status post successful extubation with mental status improved, though she remains somewhat impaired, and with temperatures and white blood cell count remaining normal on Unasyn, switched from Ceftriaxone apparently to cover the Acinetobacter isolated from the sputum culture, which likely represented colonization given her stable respiratory status and negative chest x-ray. She has received a total of 4 weeks of antibiotics, initially for her pneumococcal meningitis and sepsis, and continued for mastoiditis/otitis media and, at this point, she should have received an adequate course of antibiotics. MRI was anticipated once she was extubated and this can now be considered. Suggestion: 1. Would pursue MRI of the head 2. Remove Dominguez catheter 3. Out of bed as tolerated 4. Discontinue Unasyn and follow off antibiotics
--- NOTE | 2016-04-14 14:06 | MRI REPORT ---
EXAMINATION: MR BRAIN WITHOUT AND WITH CONTRAST CLINICAL INFORMATION: Meningitis and mastoiditis. Evaluate for residual pathology. COMPARISON: CT from 04/06/2016. TECHNIQUE: MRI of the brain was obtained using routine sequences before and after the intravenous administration of 17 mL of Magnevist. Study significantly limited due to motion artifact. FINDINGS: There is thick nodular enhancement of the parietal gyri near the vertex posteriorly, left greater than right-sided. Additional regional leptomeningeal enhancement suspected. There is abnormal T2 prolongation in the gyri of the inferior parietal lobules bilaterally at the high convexities as well. Findings are unchanged compared to prior CT imaging. There is mild pachymeningeal enhancement along the cerebral convexities. There are some foci of diffusion signal abnormality presumed to be within the high bilateral frontoparietal sulci. Although limited for assessment. No definite additional brain parenchymal signal abnormalities are seen. The basilar cisterns are normal. The brainstem and cerebellum are unremarkable. No hydrocephalus or midline shift of structures. The gradient refocused acquisition is motion degraded. The craniovertebral junction and marrow signal appear normal. There is fluid and areas of enhancement in the mastoid air cells, right greater than left side, and in the middle ear cavities. There is a small fluid level in the left maxillary antrum. IMPRESSION: Limited study with motion artifacts. 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 A few scattered foci of diffusion signal abnormality within the frontoparietal sulci as well bilaterally. Fluid and enhancement in the mastoid air cells and middle ear cavities, worse on the right side.
--- NOTE | 2016-04-14 15:50 | RADIOLOGY REPORT ---
EXAMINATION: XR PORTABLE CHEST CLINICAL INFORMATION: Status post feeding tube repositioning. Evaluate for placement. COMPARISON: Portable chest x-ray 04/11/2015. TECHNIQUE: Portable AP view of the chest was obtained. FINDINGS: The weighted tip of an enteric catheter is visualized projecting over the expected region of the gastric fundus to mid stomach. The bilateral lungs are mildly hypoinflated but otherwise grossly stable in appearance without new airspace consolidation. Redemonstrated is a right upper extremity PICC, the distal tip of which is not clearly seen on this exam. IMPRESSION: The weighted tip of an enteric catheter projects over the expected region of the gastric fundus to mid stomach.
[2016-04-14 16:00] VITALS: BP 150/72
--- NOTE | 2016-04-14 17:40 | NUR ---
PT DOWNGRADED TO A TELE HOLD, TO STAY IN ICU TEMPORARILY. PT REMAINS DROWSY AROUSABLE, CONFUSED. PT IS IN A NSR ON THE MONITOR 70-90'S, BP 110'S-150'S. NC 3L, WITH COARSE COUGH AND UPPER AIRWAY LUNG SOUNDS. PT SATS 95% + IN NO DISTRESS. PT BEDSIDE SWALLOW EVALUATION DEFERED BY SPEECH THERAPIST. MBS TO BE OBTAINED TOMORROW IF PT ABLE TO FOLLOW DIRECTIONS TO DO SO. IN THE MEANTIME, PT REMAINS ON RAMON TUBE FEEDING VIA L NARES. TUBE FEED WAS BRIEFLY DELAYED DUE TO TUBE BECOMING DISLODGED. TUBE WAS REPOSITIONED AND XRAY OBTAINED TO CONFIRM PLACEMENT. TF RESTARTED AT GOAL. MRI OBTAINED, RESULTS TO FOLLOW. IV ABX DC'D PER I/D). FAMILY HAS BEEN PRESENT AT THE BEDSIDE THROUOUGHT MUCH OF THE DAY AND UPDATED/EDUCATED ON POC NEEDED. PT TO EDGE OF BED W PT-SEE PT NOTES. PT REPORTED ALVARENGA S/P PT. PT GIVEN TYLENOL 1 GM IV. REPORTED TO . MRI OBTAINED.
[2016-04-14 20:00] VITALS: BP 146/60
[2016-04-15] VITALS: BP 130/70
[2016-04-15 05:25] LABS: ABSOLUTE BASOPHIL COUNT 0 /CUMM (0.0-0.2); ABSOLUTE EOSINOPHIL COUNT 0.1 /CUMM (0.0-0.7); ABSOLUTE GRANULOCYTE CT 2.5 /CUMM (1.4-6.5); ABSOLUTE LYMPH COUNT 1.7 /CUMM (1.2-3.4); ABSOLUTE MONOCYTE COUNT 0.9 /CUMM (0.10-0.60); BASOPHIL % 0.8 % (0.0-2.0); EOSINOPHIL % 1.4 % (0-5); GRANULOCYTE % 47.8 % (42.2-75.2); HEMATOCRIT 34.9 % (37-47); MEAN CORPUSCULAR HGB CONC 32.9 G/DL (33.0-37.0); MEAN PLATELET VOLUME 6.9 FL (7.4-10.4); PLATELET COUNT 237 /CUMM (130-400); RBC DISTRIBUTION WIDTH 15.5 % (11.5-14.5); RED BLOOD CELL CT 3.97 /CUMM (4.20-5.40); WHITE BLOOD CELL COUNT 5.3 /CUMM (4.8-10.8)
--- NOTE | 2016-04-15 07:07 | PN- Resident CRCU ---
Subjective HPI/CRCU Issues: Patient in ICU for Streptococcus pneumoniae meningitis and mastoiditis, s/p intubation and mechanical ventilation. I followed up and examined the patient today. She is sitting comfortably in the bed, was extubated 4 days ago, was initially on BiPAP but currently saturating well on nasal canula. Respiratory rate is still high at 20-22. She is much more verbal and has purposeful conversation now. Of note, she is hard of hearing from both sides, not sure if this is chronic. Also, she has a weak cough, but no fever, vitals have been stable overnight, no issues overnight. Objective Vital Signs & I&O Last 8 Hrs of Vitals and I&O: Vital Signs Date Time Temp Pulse Resp B/P Pulse O2 O2 Flow FiO2 Ox Delivery Rate 04/15 1600 100 Nasal 3.0L Cannula 04/15 1600 98.7 80 20 114/78 100 Nasal 3.0L Cannula Intake & Output 04/15 1600 Intake Total 837 Output Total Balance 837 Intake, IV 220 Intake, Other 25 Intake, Tube 392 Feeding Intake, Tube 200 Irrigant Number 2 Bowel Movements Patient 78.953 kg Weight Exam General Appearance: well developed/nourished, no apparent distress, alert, awake , comfortable, obese Other Physical Findings: Head: atraumatic, normal appearance Ears, Nose, Throat: lesion on lower lip now improving Neck: supple Respiratory: Breath sounds better heard b/l, but still has added sounds during inspiration ?stridor, some rhonchi present but no wheezes heard Cardiovascular: regular rate/rhythm Gastrointestinal: soft, non-tender, positive bowel sounds Extremities: no edema Skin: intact, warm/dry KeoFeed Site: left nostril Date In: 04/11/16 Still Needed: Yes Nutrition Nutrition: tube feeding Current Medications: Current Medications Sig/Garrick Start time Last Medication Dose Route Stop Time Status Admin Acetaminophen 1,000 MG Q6-PRN PRN 03/17 1630 AC 04/14 N/A 1 UNIT IV 1248 Acyclovir 1 SULEMAN Q5 04/06 1200 DC 04/15 TOP 0840 Albuterol Sulfate 3 ML EVERY 4 HRS/AWAKE .. 04/13 1700 AC 04/13 INH 1530 Heparin Sodium 5,000 UNIT Q8 03/25 1400 AC 04/15 (Porcine) SC 1443 Hydralazine HCl 10 MG Q8 PRN 03/23 1315 AC 04/12 IV 1805 Insulin Human Regular 0 Q6 04/08 0600 AC 04/15 SC 1229 Levetiracetam 1,500 MG Q12H 03/28 0600 AC 04/15 Sodium Chloride 100 ML IV 1737 Levothyroxine Sodium 12.5 MCG DAILY 03/19 1000 AC 04/15 IV 0956 Magnesium Sulfate 1 GM ONCE ONE 04/15 0900 DC 04/15 Dextrose/Water 100 ML IV 04/15 1259 1045 Pantoprazole Sodium 40 MG DAILY 03/18 1000 AC 04/15 IV 0956 Polyethylene Glycol 17 GM DAILY PRN 03/31 1215 AC 04/02 PO 0025 Potassium Chloride 20 MEQ ONCE ONE 04/15 09 DC 04/15 PO 04/15 0901 0957 Valproate Sodium 1,000 MG Q8H 03/28 0200 AC 04/15 Sodium Chloride 100 ML IV 1737 Miscellaneous Findings: Modified Barium swallow: IMPRESSION: Weakened oropharyngeal phase of swallowing as discussed above. Transient penetration of contrast is seen, eliciting a weak cough reflex, which is ineffectual in clearing the pooled barium in the vallecula. Speech pathologist assessment issued separately. DICTATED BY: ALO ALDRICH,LYNDA White DATE/TIME DICTATED:04/15/161249 SUBPOENA SERVER:PAUL DATE/TIME TRANSCRIBED:04/15/161249 Impression/Plan Impression/Problem List Impression: This is a 70 year old female with PMH of hypotension, hyperlipidemia, hypothyroidism DM who came was brought to hospital after being found unresponsive. She had one day of otalgia and difficulty hearing. Found down and unresponsive, subsequently brought to on 03/17/2016. In ED was found to have Tmax 102, AMS/agitation, CT with pneumocephalus in temporal lobe, and opacification of mastoid air cells. Due to concern for bacterial meningitis 2/2 otitis she was admitted to ICU. She has had prolonged ICU stay. Of note, during admission fluoro-guided LP by IR pt had an episode of emesis and likely aspirated. CXR showed corresponding suspicious opacity. She subsequently desatted into the 60s and required BiPAP. Subsequently on March 25 patient had episode of hypertension with BP over 200 systolic, and was satting in the low 60s despite BiPAP. She was intubated; procedure was complicated by cardiopulmonary arrest. Patient was successfully resuscitated. She was intubated (now extubated), off all pressors and hemodynamically stable. Her hospital course has been complicated by: Aspiration pneumonia, periodic hypotension, new-onset seizures, and increasing mastoid opacification treated by bilateral ear tubes. She is being managed in the intensive care unit for the following issues: Respiratory: Pt was intubated on 03/25/2016 because she had long periods of apnea on her blood pressure went up to 200 systolic. While she was being intubated patient went into cardiopulmonary arrest. One round of CPR was done. Patient attained ROSC. Now, pt continues to be intubated but under no sedation. Patient was ventilator dependent for a long time (16 days). * Patient extubated on 04/10/[address] Treviño, Dr Morejon, md (Dr Kelly), Respiratory Therapist. * Aspiration precautions. Patient was on Unasyn for aspiration precautions/ aspiration pneumonitis, which has been discontinued yesterday. Total Day 7 of Unasyn * She was able to go off BiPAP and use nasal canula to breathe since yesterday. * Respirate rate now is 20 and without distress, although she continues to have weak cough. * Continue total respiratory care. Neuro/ID: 1. Step Pneumo Meningitis: Patient has strep pneumo meningitis confirmed by CSF culture and blood culture. Finished 4 day course of Decadron. Initial CSF white count was 28,000 and repeat LP showed white blood cell of only 42 and third LP showed WBC of 14 and 1 RBC. 2x TTEs and one SAMUEL have both been negative for any valvular pathology. * Her mental status has been slowly but progressively getting better . Today, she is able to follow commands by speaking in small sentences, expressing over her face, compared to nodding her head, weaning her arms. Her voice is not clear yet. Her cough is still weak. * She did have seizure while she was intubated, EEG was done, and was started on antiseizure meds. Second EEG was negative. * Got treated with 14 days of ceftriaxone (stopped on 03/31/2016) and vancomycin intermittently. Vanco given Mar 18- then Mar 25-Feb 03. Note that one culture of her LRC grew staph aureus. negative for MRSA; negative cxr. She was then re- started on ceftriaxone and D/C on 04/06/2013 and started on Unasyn on 04/06/16 * Continue to monitor mental status 2. Mastoid Opacification: she got bilateral ear tube placement on 04/13/2016 to address the bilateral mastoid opacification seen on CT. Initially, patient had opacification on the left mastoid, repeat CT about a week later showed opacification extending to the right. Initially was concern for continued strep pneumo infection. However, the fluid cultures are negative for any suspicious organism, just growing coag negative staph which is likely contaminant. Repeat CT-head with IV contrast on 04/03 showed no change. On speaking with neuroradiologist there seems to be possibility of a communicating hydrocephalus and she does have some meningeal inflammation. patint getting better already. * Discontinued Unasyn per ID * Thank you Neuro consult * Thank you ENT consult * ESR was 75 on 04/07/16 3. New onset Seizures: Patient has new onset seizures which started early a.m. on 03/24/2016. Since then she has had a repeat seizure activity, at least 2 episodes of GTC. The rest seem to be focal, localized to her right arm. EEG about a week ago showed corresponding epileptiform activity in left hemisphere. Pt currently on Keppra and Depakote IV at increased doses. Second EEG negative. * Appreciate Neurology consult * Con't Keppra and Depakote * CT head was done which does not show acute changes * Repeat MRI of the head today shows subacute sequela of meningoencephalitis, few diffusion signal abnormality within the frontoparietal sulci bilaterally, fluid and enhancement in the mastoid air cells and middle ear cavities worse on the right side. This finding is as expected. ENT: #Left vocal cord paralysis -Dr Tobin evaluated the patient's ENT thoroughly, including via flexible laryngoscope, and found left vocal cord paralysis, which seems unrelated to intubation. #Difficulty hearing/Persistant otitis media with effusion of right middle ear -Right side of your examination reveals yellowish bulging of tympanic membrane, with Grommet in place. Repeat MRI is suggestive of persistent otitis media with effusion. Left ear appears normal. She does have bilateral decreased hearing, but unable to assess the degree and whether this is acute or chronic. -Restart ciprofloxacin dexamethasone drops 5 drops twice daily in right ear for 5 days #Dysphagia -Patient is still weak and her modified barium swallow examination today demonstrated some possible aspiration so patient will still be and nothing by mouth and continue tube feeding CVS: Patient had an episode of hypotensionon 04/05/2016, lowest blood pressure recorded was 87/48. She was given 3.5 L of fluids did not respond and subsequently was started on 2.5 g of levothyroxine. She adequately responded blood pressures reaching 120s and 130s systolic. Levophed was turned off. She got a lumbar puncture on 04/04/2016 and was given 1 mg Ativan and propofol for sedation. Likely a combination of the procedure and propofol resulted in hypotension in this fragile patient. Patient is currently hemodynamically stable and off pressors. Note that when patient was first intubated she was started on both Levophed and Rashid-Synephrine. Over a period of days she was able to be weaned off all pressors. Strict I's and O's Metabolic: #Diabetes Mellitus: -Accuchecks and Novolin NPO sliding scale Q6H. Heme/Onc: Stable. Will con't monitor. Msk: Moving r. side less than left initially. Consider PT and long-term rehabilitation now, once patient is more stable and extubated GI: placed KO tube on 04/11/16 Receiving tubes feeds now. RISS Protonix Endocrine: Con't Synthroid. FULL CODE TUBE FEED to continue CHEM/ALPS DVT PPX Problem List: 1. Sepsis 2. Meningitis 3. Seizures 4. Toxic encephalopathy 5. Metabolic encephalopathy 6. T2DM (type 2 diabetes mellitus) 7. Hypothyroidism 8. Vocal cord dysfunction 9. S/P tympanic tube insertion Pain Ratin Pain Location: - Pain Goal: Remain pain free Pain Plan: prn Tomorrow's Labs & Rationales: ICU lab bundle, CBC to follow lytes, and signs of sepsis/infection Plan DVT/Prophylaxis: pharmacological Code Status: Full Code CHEM/ALPS DVT PPX Problem List: 1. Sepsis 2. Meningitis 3. Seizures 4. Toxic encephalopathy 5. Metabolic encephalopathy 6. T2DM (type 2 diabetes mellitus) 7. Hypothyroidism 8. Vocal cord dysfunction 9. S/P tympanic tube insertion Pain Ratin Pain Location: - Pain Goal: Remain pain free Pain Plan: prn Tomorrow's Labs & Rationales: ICU lab bundle, CBC to follow lytes, and signs of sepsis/infection Plan DVT/Prophylaxis: pharmacological Code Status: Full Code
[2016-04-15 08:00] VITALS: BP 138/80
--- NOTE | 2016-04-15 09:51 | PN- CRCU ---
Subjective HPI/Critical Care Issues: The patient is awake but remains confused. Her respiratory status remained stable, noting she is on 3 L nasal cannula with saturations in the high 90s. Her MAXIMUM TEMPERATURE over the past 24 hours was 100.0. She had a brain MRI that showed subacute sequela of meningoencephalitis. There was also fluid enhancement in the mastoid air cells and middle ear cavities, worse on the right side. She is tolerating tube feeds well. Objective Current Medications: Current Medications Sig/Garrick Start time Last Medication Dose Route Stop Time Status Admin Acetaminophen 1,000 MG .STK-MED ONE 04/14 1225 DC IV 04/14 1226 Acetaminophen 1,000 MG Q6-PRN PRN 03/17 1630 AC 04/14 N/A 1 UNIT IV 1248 Acyclovir 1 SULEMAN Q5 04/06 1200 AC 04/15 TOP 0840 Albuterol Sulfate 3 ML EVERY 4 HRS/AWAKE .. 04/13 1700 AC 04/13 INH 1530 Ampicillin Sodium/ 3,000 MG Q6 04/10 1800 DC 04/14 Sulbactam Sodium IV 04/23 0400 0654 Sodium Chloride 100 ML Heparin Sodium 5,000 UNIT Q8 03/25 1400 AC 04/15 (Porcine) SC 0520 Hydralazine HCl 10 MG Q8 PRN 03/23 1315 AC 04/12 IV 1805 Insulin Human Regular 0 Q6 04/08 0600 AC 04/15 SC 0527 Levetiracetam 1,500 MG Q12H 03/28 0600 AC 04/15 Sodium Chloride 100 ML IV 0516 Levothyroxine Sodium 12.5 MCG DAILY 03/19 1000 AC 04/14 IV 0921 Magnesium Sulfate 1 GM ONCE ONE 04/15 09 AC Dextrose/Water 100 ML IV 04/15 1259 Pantoprazole Sodium 40 MG DAILY 03/18 1000 AC 04/14 IV 0921 Polyethylene Glycol 17 GM DAILY PRN 03/31 1215 AC 04/02 PO 0025 Potassium Chloride 20 MEQ ONCE ONE 04/15 09 DC PO 04/15 0901 Valproate Sodium 1,000 MG Q8H 03/28 0200 AC 04/15 Sodium Chloride 100 ML IV 0204 Vital Signs & I&O Last 24 Hrs of Vitals and I&O: Vital Signs Date Time Temp Pulse Resp B/P Pulse O2 O2 Flow FiO2 Ox Delivery Rate 04/15 0000 97.5 79 20 130/70 97 Nasal 3.0L Cannula 04/15 0000 97 Nasal 3.0L Cannula 04/14 1999 97.0 77 20 146/60 99 Nasal 3.0L Cannula 04/14 1600 97.2 81 29 150/72 98 Nasal 3.0L Cannula 04/14 1600 95 Nasal 3.0L Cannula 04/14 1248 100.0 Intake & Output 04/15 1600 04/15 0800 04/15 0000 Intake Total 758 863 Output Total 260 475 Balance 498 388 Intake, IV 250 100 Intake, Tube 383 638 Feeding Intake, Tube 125 125 Irrigant Output, Urine 260 475 Results Last 24 Hrs of Lab Results: Laboratory Tests 04/15/16 0352: Anion Gap 7, Estimated GFR > 60, Glucose 157 H, Calcium 8.6, Phosphorus 3.2, Magnesium 1.7, Total Bilirubin 0.3, AST 24, ALT 21, Albumin 2.7 L, CBC w Diff NO MAN DIFF REQ, RBC 3.97 L, MCV 88.0, MCH 29.0, RDW 15.5 H, MPV 6.9 L, Gran % 47.8, Lymphocytes % 32.4, Monocytes % 17.6 H, Eosinophils % 1.4, Basophils % 0.8, Absolute Granulocytes 2.5, Absolute Lymphocytes 1.7, Absolute Monocytes 0.9 H, Absolute Eosinophils 0.1, Absolute Basophils 0, PUBS MCHC 32.9 L Diagnostic Data CXR Findings: The weighted tip of an enteric catheter projects over the expected region of the gastric fundus to mid stomach. Impression/Plan Impression/Plan Impression/Plan: 1. Toxic/metabolic encephalopathy, with 2. Anemia - Hgb now stable. 3. Respiratory failure - improved post extubation. The patient does however have ongoing stridor which is concerning for possible tracheomalacia and the setting of prolonged mechanical ventilation. 4. Malnutrition, on tube feeds, patient is an aspiration risk. 5. Ongoing stridor O's extubation. Recommendations: * We'll continue to follow speech therapy's recommendations and attempt to advance diet. * Continue with physical therapy, out of bed to chair daily. * Monitor off antibiotics as per ID. * Please request Dr. Ponce to reevaluate the patient. She will benefit from a bedside laryngoscopy due to her persistent stridor. * Continue to follow antiseizure regimen as per neurology. * Continue DVT and GI prophylaxis/ventilator bundle. * Place the patient on BiPAP if there is any evidence of respiratory distress. * Continue telemetry monitoring. * Continue all supportive care for now. Code Status: Full Code
--- NOTE | 2016-04-15 10:44 | PN- Infect Dx ---
Subjective Subjective: MAXIMUM TEMPERATURE 100. She denies any complaints but remains confused. Objective Last 24 Hrs of Vital Signs/I&O Vital Signs Date Time Temp Pulse Resp B/P Pulse O2 O2 Flow FiO2 Ox Delivery Rate 04/15 0000 97.5 79 20 130/70 97 Nasal 3.0L Cannula 04/15 0000 97 Nasal 3.0L Cannula 04/14 2000 97.0 77 20 146/60 99 Nasal 3.0L Cannula 04/14 1600 97.2 81 29 150/72 98 Nasal 3.0L Cannula 04/14 1600 95 Nasal 3.0L Cannula 04/14 1248 100.0 Intake & Output 04/15 1600 04/15 0800 04/15 0000 Intake Total 758 863 Output Total 260 475 Balance 498 388 Intake, IV 250 100 Intake, Tube 383 638 Feeding Intake, Tube 125 125 Irrigant Output, Urine 260 475 Physical Exam Other Physical Findings: She appears comfortable in no acute distress but remains confused and disoriented Lungs are clear Heart regular rhythm with no change in her 6 holosystolic murmur Abdomen is soft, nontender with positive bowel sounds Extremities no cyanosis, clubbing or edema Results Last 24 Hours of Lab Results: Laboratory Tests 04/15 0352 Chemistry Sodium (137 - 145 mmol/L) 140 Potassium (3.5 - 5.1 mmol/L) 3.7 Chloride (98 - 107 mmol/L) 97 L Carbon Dioxide (22 - 30 mmol/L) 36 H Anion Gap (5 - 16) 7 BUN (7 - 17 mg/dL) 12 Creatinine (0.5 - 1.0 mg/dL) 0.5 Estimated GFR (>60 ml/min) > 60 Glucose (65 - 99 mg/dL) 157 H Calcium (8.4 - 10.2 mg/dL) 8.6 Phosphorus (2.5 - 4.5 mg/dL) 3.2 Magnesium (1.6 - 2.3 mg/dL) 1.7 Total Bilirubin (0.2 - 1.3 mg/dL) 0.3 AST (14 - 36 U/L) 24 ALT (9 - 52 U/L) 21 Albumin (3.5 - 5.0 g/dL) 2.7 L Hematology CBC w Diff NO MAN DIFF REQ WBC (4.8 - 10.8 /CUMM) 5.3 RBC (4.20 - 5.40 /CUMM) 3.97 L Hgb (12.0 - 16.0 G/DL) 11.5 L Hct (37 - 47 %) 34.9 L MCV (81.0 - 99.0 FL) 88.0 MCH (27.0 - 31.0 PG) 29.0 RDW (11.5 - 14.5 %) 15.5 H Plt Count (130 - 400 /CUMM) 237 MPV (7.4 - 10.4 FL) 6.9 L Gran % (42.2 - 75.2 %) 47.8 Lymphocytes % (20.5 - 51.1 %) 32.4 Monocytes % (1.7 - 9.3 %) 17.6 H Eosinophils % (0 - 5 %) 1.4 Basophils % (0.0 - 2.0 %) 0.8 Absolute Granulocytes (1.4 - 6.5 /CUMM) 2.5 Absolute Lymphocytes (1.2 - 3.4 /CUMM) 1.7 Absolute Monocytes (0.10 - 0.60 /CUMM) 0.9 H Absolute Eosinophils (0.0 - 0.7 /CUMM) 0.1 Absolute Basophils (0.0 - 0.2 /CUMM) 0 PUBS MCHC (33.0 - 37.0 G/DL) 32.9 L Last 24 Hours of Ke[place] Results: No recent cultures Recent Imaging Studies: MRI of the head April 14 reveals persistent high posterior bilateral parietal lobe nodular leptomeningeal and gyral enhancement, felt to be subacute sequela of meningoencephalitis; fluid and enhancement in the mastoid air cells and middle ear cavities, worse on the right. Assessment/Plan Impression: Overall improved, though she remains confused, with MRI findings felt to be consistent with sequelae of meningitis. She did have a low-grade fever yesterday of unclear significance, with white blood cell count remaining normal off antibiotics. Suggestion: 1. Await modified barium swallow 2. Out of bed as tolerated 3. Discontinue topical Acyclovir 4. Continue to follow off antibiotics
--- NOTE | 2016-04-15 11:31 | NUR ---
PT TRANSFERRED TO A STRETCHER WITH ASSIST OF 4 PERSONS TO GO FOR A MODIFIED BARIUM SWALLOW AT THIS TIME.
--- NOTE | 2016-04-15 12:45 | NUR ---
PT RETURNED FROM MODIFIED BARIUM SWALLOW AT 1200. TRANSFERRED TO BED WITHOUT INCIDENT. PER SPEECH THERAPY PT FAILED THE MODIFIED BARIUM SWALLOW AND IS TO REMAIN NPO WHILE ON TUBE FEEDS.
--- NOTE | 2016-04-15 12:58 | RADIOLOGY REPORT ---
EXAMINATION: XR MODIFIED BARIUM SWALLOW CLINICAL INFORMATION: Recovering from meningitis. Extubated 4 days ago after long intubation. Assess for aspiration. COMPARISON: None. TECHNIQUE: A modified barium swallow was performed with speech pathologist in attendance. Pur?e and honey thick consistencies were given to the patient and the swallowing mechanism was observed fluoroscopically with several spot films taken. FLUOROSCOPY TIME: 1 minute 2 seconds. FINDINGS: With both consistencies, the oropharyngeal phase of swallowing is disordered with pooling of contrast seen in the valleculae with incomplete clearing, even with successive swallows. Transient penetration of contrast is seen into the proximal most trachea, not extending to the vocal cords. This does elicit a cough reflex, which is, however, leak and ineffectual in clearing the pooled contrast in the vallecula. IMPRESSION: Weakened oropharyngeal phase of swallowing as discussed above. Transient penetration of contrast is seen, eliciting a weak cough reflex, which is ineffectual in clearing the pooled barium in the vallecula. Speech pathologist assessment issued separately.
--- NOTE | 2016-04-15 14:53 | PN- Ear, Nose & Throat ---
Subjective Subjective: Voice weakness after recent extubation 70-year-old female with PMH of hypertension, hyperlipidemia, hypothyroidism, DM brought to the hospital unresponsive on 03/17/2016. She required intubation and cardiopulmonary resuscitation. While in the hospital she was found to have aspiration pneumonia, periodic hypoertension and new onset of seizures. She was also found to have bilateral otitis media with effusion with mastoiditis and strep pneumo meningitis confirmed by CSF culture and blood culture. Initial CSF white count was 28,000. Patient was treated with ceftriaxone x 14 days, stopped on 03/31/2016 and vancomycin intermittently, 03/18- and 03/25-03/28/2016, ceftriaxone was restarted and discontinued , she was treated with Unasyn . Currently patient is off Unasyn. The patient was extubated 4 days ago. She was observed to be stridorous and with a weak voice. The stridor seems to be getting better. Today patient underwent a modified barium swallow . She was found to have weak swallowing mechanism with the barium pulling within hypopharynx and and intermittent aspiration. Patient is currently on tube feeds. Review of Systems: Noncontributory Objective Vital Signs and I&Os Vital Signs Date Time Temp Pulse Resp B/P Pulse O2 O2 Flow FiO2 Ox Delivery Rate 04/15 08 99 Nasal 3.0L Cannula 04/15 08 97.4 91 23 138/80 99 Nasal 3.0L Cannula 04/15 0000 97.5 79 20 130/70 97 Nasal 3.0L Cannula 04/15 0000 97 Nasal 3.0L Cannula 04/14 1999 97.0 77 20 146/60 99 Nasal 3.0L Cannula 04/14 1600 97.2 81 29 150/72 98 Nasal 3.0L Cannula 04/14 1600 95 Nasal 3.0L Cannula Intake & Output 04/15 1600 04/15 0800 04/15 0000 04/14 1600 04/14 0800 04/14 0000 Intake Total 758 863 680 903 978 Output Total 260 475 900 300 445 Balance 498 388 -220 603 533 Intake, IV 250 100 120 300 300 Intake, Tube 383 638 560 478 478 Feeding Intake, Tube 125 125 125 200 Irrigant Number 2 0 1 Bowel Movements Output, Urine 260 475 900 300 445 Patient 180 lb Weight Physical Exam: Lying in bed, somewhat lethargic, responds to commands intermittently Voice-weak, no stridor while at rest Head: normocephalic, atraumatic Ears: Canals- clear; Tympanic Membranes- right-sclerotic with middle ear serous effusion, myringotomy tube in place and dry , lumen patent Left-sclerotic, regarding the tube in place joint patent, lumen patent, middle ear clear Nose: Septum- anterior excoriations, nasal prongs in place ; septum deviated to the right Turbinates- clear; Airway-adequate on the left, particularly obstructed on the right Oral cavity: Mucosa- clear Oropharynx: Posterior wall- clear Neck: supple Fiberoptic laryngoscopy: Fiberoptic scope inserted via left nostril Nasopharynx: Clear Hypopharynx: Piriform sinuses-Clear; posterior wall-medialized with narrow hypopharyngeal airway; mucous membranes-coated with thickened secretions Larynx: Epiglottis- intact; vocal cords- right-mobile; left-immobile Arytenoids-symmetric posterior commisure- small amount of secretions pooling Esophageal inlet - small amount of secretions pooling MRI brain 04/14/16: Fluid enhancement within the mastoid air cells and middle ear cavities, worse on the right 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 Left vocal cord paralysis With secondary voice weakness and stridor (although stridor is not audible at rest) Symmetric arytenoids- I do not suspect intubation trauma as the source left vocal cord paralysis Most likely vocal cord paralysis is related to current illness I will reexamine the patient in a few days 2. Dysphagia With the generalized neuromuscular weakness all of the hypopharynx rec continue with tube feeds and reassess in a few days 3. Persistent otitis media with effusion, right ear rec restart Ciprodex drops 5 drops twice a day right ear 5 days Core Measures/Miscellaneous Dominguez Catheter Date In: 04/15/16 Venous Thromboembolism VTE Risk Factors: Acute medical illness VTE Contraindications: No Contraindications VTE Prophylaxis Ordered Inpt: Mechanical (ALPS/TEDS) VTE Diagnosis: No VTE Type: NONE VTE Confirmed by (Test): NONE Beta Jonatan Is Beta Jonatan a Home Med? No Antibiotics Is Patient on Antibiotics? Yes Attending MD Review Statement Attending Statement Attending MD Statement: examined this patient, discuss w/resident/PA/LPN CARE MANAGER
[2016-04-15 16:00] VITALS: BP 114/78
--- NOTE | 2016-04-15 21:56 | Event Note ---
Event Note Event Note: According to the morning team's sign out the patient has been downgraded to Tele but had to remain in the ICU for monitoring. However, the patient is being transferred to room 175 right now. Upon clarification from CONSTANTINE Ennis, the night superviser, she communicated with Dr. Treviño and she was agreeable to the decision of moving her out of the ICU if they had to.
[2016-04-15 22:42] VITALS: BP 118/68
--- NOTE | 2016-04-16 07:01 | PN- Housestaff ---
LORELEI ALDRICH,URSULA 04/16/16 0701: Subjective Follow-up For: Strep pneumo meningitis Otitis media with mastoid opacification Seizures Left vocal cord paralysis Dysphagia Tele-Events Since Last Visit: Gen med hold. Subjective: Patient seen and examined at bedside this AM. She remains lethargic with NGT. Family is agreeable to PEG tube placement and transfer to ECF for continued care. Review of Systems Constitutional: Reports: malaise. EENTM: Denies: visual changes, nasal congestion. Cardiovascular: Denies: chest pain, palpitations. Respiratory: Denies: short of breath. Gastrointestinal: Reports: abdominal pain. Genitourinary: Denies: dysuria. Objective Last 24 Hrs of Vital Signs/I&O Vital Signs Date Time Temp Pulse Resp B/P Pulse O2 O2 Flow FiO2 Ox Delivery Rate 04/16 1636 97.6 88 18 132/80 99 Nasal 3.0L Cannula 04/16 0800 Nasal 3.0L Cannula 04/16 0800 97.7 89 20 112/60 99 Nasal 2.5L Cannula 04/16 0000 97 Nasal 3.0L Cannula 04/15 2242 97.8 80 22 118/68 97 Nasal 3.0L Cannula Intake & Output 04/16 1600 04/16 0800 04/16 0000 Intake Total 780 925 540 Output Total Balance 780 925 540 Intake, IV 100 245 200 Intake, Oral 0 0 Intake, Tube 480 480 240 Feeding Intake, Tube 200 200 100 Irrigant Number 1 0 0 Bowel Movements Patient 169 lb Weight Physical Exam General Appearance: Alert, Cooperative, No Acute Distress Skin: No Significant Lesion HEENT: Atraumatic, Mucous Membr. moist/pink Neck: Supple Cardiovascular: Regular Rate, Normal S1, Normal S2 Lungs: Normal Air Movement Abdomen: Normal Bowel Sounds, Soft, Tenderness to generalized palpation Neurological: Normal Tone Extremities: No Clubbing, No Cyanosis Current Medications: Current Medications Sig/Garrick Start time Last Medication Dose Route Stop Time Status Admin Acetaminophen 1,000 MG Q6-PRN PRN 03/17 1630 AC 04/14 N/A 1 UNIT IV 1248 Albuterol Sulfate 3 ML EVERY 4 HRS/AWAKE .. 04/13 1700 AC 04/13 INH 1530 Ciprofloxacin 2 GTT BID 04/15 2200 AC 04/16 OTIC 04/20 1001 0941 Dexamethasone 2 GTT BID 04/15 2200 AC 04/16 OTIC 04/20 1001 0940 Heparin Sodium 5,000 UNIT Q8 03/25 1400 AC 04/16 (Porcine) SC 1403 Hydralazine HCl 10 MG Q8 PRN 03/23 1315 AC 04/12 IV 1805 Insulin Human Regular 0 Q6 04/08 0600 AC 04/16 SC 1230 Levetiracetam 1,500 MG Q12H 03/28 0600 AC 04/16 Sodium Chloride 100 ML IV 0613 Levothyroxine Sodium 12.5 MCG DAILY 03/19 1000 AC 04/16 IV 0940 Non-Formulary 0 SEE ADMIN CRITERIA 04/15 1800 CAN Medication ANY Pantoprazole Sodium 40 MG DAILY 03/18 1000 AC 04/16 IV 0940 Polyethylene Glycol 17 GM DAILY PRN 03/31 1215 AC 04/02 PO 0025 Valproate Sodium 1,000 MG Q8H 03/28 0200 AC 04/16 Sodium Chloride 100 ML IV 0940 Last 24 Hrs of Lab/Keaton Results Last 24 Hrs of Labs/Mics: Laboratory Tests 04/16/16 0620: Anion Gap 6, Estimated GFR > 60, Glucose 177 H, Calcium 8.9, Phosphorus 3.6, Magnesium 1.8, Total Bilirubin 0.4, AST 28, ALT 27, Albumin 2.7 L, CBC w Diff NO MAN DIFF REQ, RBC 4.05 L, MCV 88.0, MCH 28.8, RDW 15.2 H, MPV 7.5, Gran % 55.0, Lymphocytes % 25.9, Monocytes % 17.2 H, Eosinophils % 1.2, Basophils % 0.7, Absolute Granulocytes 3.8, Absolute Lymphocytes 1.8, Absolute Monocytes 1.2 H, Absolute Eosinophils 0.1, Absolute Basophils 0, PUBS MCHC 32.8 L Assessment/Plan Assessment: Ms. Leslie is a 70-year-old female with past medical history of hypertension, hyperlipidemia, hypothyroidism and diabetes mellitus who presented to the emergency department after being found unresponsive at home. She was initially provided for in the ICU and found to have strep pneumo meningitis. Below is the current management while the patient is now on the telemetry floor: 1. Strep pneumo meningitis * Patient has strep pneumo meningitis confirmed by CSF culture and blood culture. * Initial CSF white count was 28,000 and repeat LP showed WBC of 42. 3rd LP showed WBC of 14 and 1 RBC. 2x TTEs and one SAMUEL have both been negative for any valvular pathology. * Mental status slowly returning to baseline * She received treated with 14 days of ceftriaxone (stopped on 03/31/2016) and vancomycin intermittently along with IV unasyn * Currently monitoring off anx * ID input appreciated, will monitor mental status closely and if patient spikes fever will wallace culture 2. Dysphagia * Patient previosly failed MBS prior to transition to tele floor * Currently on tube feeds as per nutrition recommendations * GI consult placed today for PEG tube placement * F/U when to make patient NPO for this procedure 3. Discharge planning * Patient will require STR after discharge * Case management aware and once PEG tube placed, patient will be transitioned to STR/ECF for continued care 4. Otitis media with tympanostomy tubes * Continue to follow ENT recommendations * OFf antiobiotics for now * Wallace culture if she spikes a fever 5. Seizures * Continue keppra and depakote daily FULL CODE DVTP: Heparin SC Tube feeds Mild pain pathway Problem List: 1. Sepsis 2. Left otitis media 3. Altered mental state 4. Lactic acidosis 5. Pneumococcal meningitis 6. Respiratory failure 7. Seizures 8. Anemia 9. T2DM (type 2 diabetes mellitus) 10. Hypothyroidism 11. Vocal cord dysfunction 12. S/P tympanic tube insertion Pain Ratin Pain Location: n/a Pain Goal: Remain pain free Pain Plan: Mild pain pathway Tomorrow's Labs & Rationales: CBC (preop), BEP CHETAN ALDRICH,STACEY 04/16/16 1531: Attending MD Review Statement Attending Statement Attending MD Statement: examined this patient, discuss w/resident/PA/LONG TERM CARE PHLEBOTOMIST, agreed w/resident/PA/LONG TERM CARE PHLEBOTOMIST, discussed with family, reviewed EMR data (avail), discussed with nursing, discussed with case mgmt, amended to note Attending Assessment/Plan: Patient seen and examined. Transferred out of the ICU overnight. Case discussed in detail with casting carrier Dr. Sofi Treviño. I also had an extensive conversation with the patient's son at the bedside. She is currently resting comfortably and not in acute distress. She is lethargic. She speaks in very low tones. She responds in monosyllables to simple questions. She is able to move all extremities very weakly to command. She remains afebrile and hemodynamically stable. She has no leukocytosis. Modified barium swallow done yesterday shows evidence of aspiration. She requires alternate means of nutrition. I had a conversation with the son and is agreeable with placement of a PEG tube for nutrition. Recommendations -GI consultation for PEG tube placement. -Discharge planning to residential facility for short-term rehabilitation. Patient may benefit from referral to an acute rehabilitation center. -Continue to monitor off on antibiotic therapy. -Require follow-up with ENT service prior to discharge
[2016-04-16 08:00] VITALS: BP 112/60
[2016-04-16 08:17] LABS: ABSOLUTE BASOPHIL COUNT 0 /CUMM (0.0-0.2); ABSOLUTE EOSINOPHIL COUNT 0.1 /CUMM (0.0-0.7); ABSOLUTE GRANULOCYTE CT 3.8 /CUMM (1.4-6.5); ABSOLUTE LYMPH COUNT 1.8 /CUMM (1.2-3.4); ABSOLUTE MONOCYTE COUNT 1.2 /CUMM (0.10-0.60); BASOPHIL % 0.7 % (0.0-2.0); EOSINOPHIL % 1.2 % (0-5); HEMATOCRIT 35.6 % (37-47); MEAN CORPUSCULAR HGB 28.8 PG (27.0-31.0); MEAN CORPUSCULAR HGB CONC 32.8 G/DL (33.0-37.0); MEAN PLATELET VOLUME 7.5 FL (7.4-10.4); PLATELET COUNT 228 /CUMM (130-400); RBC DISTRIBUTION WIDTH 15.2 % (11.5-14.5); RED BLOOD CELL CT 4.05 /CUMM (4.20-5.40); WHITE BLOOD CELL COUNT 6.9 /CUMM (4.8-10.8)
--- NOTE | 2016-04-16 08:33 | Transfer of Care Summary ---
Hospital Course Course Hospital Course: 70-year-old female with past medical history of hypertension, hyperlipidemia, hypothyroidism, diabetes mellitus who came to the emergency department after being found unresponsive, was later found out to have meningitis, had a prolonged ICU course, as mentioned in the previous transfer of care summary. Please refer to the previous transfer of care summary for the earlier course of her stay. He had tried to summarize course in general, and the evens that has occurred after I started to take care of the patient in ICU last week as follows : Respiratory: Pt was intubated on 03/25/2016 because she had long periods of apnea on her blood pressure went up to 200 systolic. While she was being intubated patient went into cardiopulmonary arrest. One round of CPR was done. Patient attained ROSC. Now, pt continues to be intubated but under no sedation. Patient was ventilator dependent for a long time (16 days). * Patient extubated on 04/10/[address] Treviño, Dr Morejon, ma (Dr Kelly), Respiratory Therapist. * She was/is on aspiration precautions. Patient was on Unasyn for aspiration precautions/aspiration pneumonitis, which was discontinued after total Day 7 of Unasyn * She was able to go off BiPAP and use nasal canula to breathe, which she is still on. * Respiratory rate now is 20 and without distress, although she continues to have weak cough. * Continue total respiratory care. Neuro/ID: 1. Step Pneumo Meningitis: Patient has strep pneumo meningitis confirmed by CSF culture and blood culture. Finished 4 day course of Decadron. Initial CSF white count was 28,000 and repeat LP showed white blood cell of only 42 and third LP showed WBC of 14 and 1 RBC. 2x TTEs and one SAMUEL have both been negative for any valvular pathology. * Her mental status has been slowly but progressively getting better. Curently, she is able to follow commands by speaking in small sentences, expressing over her face, compared to nodding her head, waving her arms. Her voice is not very clear, and is hoarse/airy. Her cough is still weak. * She did have seizure while she was intubated, EEG was done, and was started on antiseizure meds. Second EEG was negative. * Got treated with 14 days of ceftriaxone (stopped on 03/31/2016) and vancomycin intermittently. Vanco given Mar 18- then Mar 25-Mar 28. Note that one culture of her LRC grew staph aureus. negative for MRSA; negative cxr. She was then re- started on ceftriaxone and D/C on 04/06/2013 and started on Unasyn on 04/06/16 * Continue to monitor mental status 2. Mastoid Opacification: she got bilateral ear tube placement on 04/13/2016 to address the bilateral mastoid opacification seen on CT. Initially, patient had opacification on the left mastoid, repeat CT about a week later showed opacification extending to the right. Initially was concern for continued strep pneumo infection. However, the fluid cultures are negative for any suspicious organism, just growing coag negative staph which is likely contaminant. Repeat CT-head with IV contrast on 04/03 showed no change. On speaking with neuroradiologist there seems to be possibility of a communicating hydrocephalus and she does have some meningeal inflammation. Patient getting better already. * Discontinued Unasyn per ID * Thank you Neuro consult * Thank you ENT consult * ESR was 75 on 04/07/16 3. New onset Seizures: Patient has new onset seizures which started early a.m. on 03/24/2016. Since then she has had a repeat seizure activity, at least 2 episodes of GTC. The rest seem to be focal, localized to her right arm. EEG about a week ago showed corresponding epileptiform activity in left hemisphere. Pt currently on Keppra and Depakote IV at increased doses. Second EEG negative. * Appreciate Neurology consult * Con't Keppra and Depakote * CT head was done which does not show acute changes * Repeat MRI of the head today shows subacute sequela of meningoencephalitis, few diffusion signal abnormality within the frontoparietal sulci bilaterally, fluid and enhancement in the mastoid air cells and middle ear cavities worse on the right side. This finding is as expected. ENT: #Left vocal cord paralysis -Dr Tobin evaluated the patient's ENT thoroughly, including via flexible laryngoscope, and found left vocal cord paralysis, which seems unrelated to intubation. #Difficulty hearing/Persistant otitis media with effusion of right middle ear -Right side of your examination reveals yellowish bulging of tympanic membrane, with Grommet in place. Repeat MRI is suggestive of persistent otitis media with effusion. Left ear appears normal. She does have bilateral decreased hearing, but unable to assess the degree and whether this is acute or chronic. -Restart ciprofloxacin dexamethasone drops 5 drops twice daily in right ear for 5 days #Dysphagia -Patient is still weak and her modified barium swallow examination today demonstrated some possible aspiration so patient will still be and nothing by mouth and continue tube feeding for now CVS: Patient had an episode of hypotensionon 04/05/2016, lowest blood pressure recorded was 87/48. She was given 3.5 L of fluids did not respond and subsequently was started on 2.5 g of levothyroxine. She adequately responded blood pressures reaching 120s and 130s systolic. Levophed was turned off. She got a lumbar puncture on 04/04/2016 and was given 1 mg Ativan and propofol for sedation. Likely a combination of the procedure and propofol resulted in hypotension in this fragile patient. Patient is currently hemodynamically stable and off pressors. Note that when patient was first intubated she was started on both Levophed and Rashid-Synephrine. Over a period of days she was able to be weaned off all pressors. Strict I's and O's Metabolic: #Diabetes Mellitus: -Accuchecks and Novolin NPO sliding scale Q6H. Heme/Onc: Stable. Will con't monitor. Msk: Moving r. side less than left initially. Consider PT and long-term rehabilitation now, once patient is more stable. PT is on board already. GI: placed KO tube on 04/11/16 by me. Placement confirmed. Receiving tubes feeds now. RISS Protonix Endocrine: Con't Synthroid. FULL CODE TUBE FEED to continue CHEM/ALPS DVT PPX Complications: As mentioned above including cardiac arrest Assessment/Plan: as mentioned above
--- NOTE | 2016-04-16 12:46 | PN- Infect Dx ---
Subjective Subjective: Afebrile without complaints. ENT evaluation yesterday revealed left vocal cord paralysis. Objective Last 24 Hrs of Vital Signs/I&O Vital Signs Date Time Temp Pulse Resp B/P Pulse O2 O2 Flow FiO2 Ox Delivery Rate 04/16 08 Nasal 3.0L Cannula 04/16 08 97.7 89 20 112/60 99 Nasal 2.5L Cannula 04/16 0000 97 Nasal 3.0L Cannula 04/15 2242 97.8 80 22 118/68 97 Nasal 3.0L Cannula 04/15 1600 100 Nasal 3.0L Cannula 04/15 1600 98.7 80 20 114/78 100 Nasal 3.0L Cannula Intake & Output 04/16 1600 04/16 0800 04/16 0000 Intake Total 925 540 Output Total Balance 925 540 Intake, IV 245 200 Intake, Oral 0 0 Intake, Tube 480 240 Feeding Intake, Tube 200 100 Irrigant Number 0 0 Bowel Movements Patient 169 lb Weight Physical Exam Other Physical Findings: She is arousable to voice and responds appropriately to questions, though she remains confused and disoriented to time Lungs are clear Heart regular rhythm with no change in her 3/6 systolic murmur Extremities no cyanosis, clubbing or edema; PICC remains in the right upper extremity with no inflammation at the site Results Last 24 Hours of Lab Results: Laboratory Tests 04/16 06 Chemistry Sodium (137 - 145 mmol/L) 139 Potassium (3.5 - 5.1 mmol/L) 4.6 Chloride (98 - 107 mmol/L) 95 L Carbon Dioxide (22 - 30 mmol/L) 38 H Anion Gap (5 - 16) 6 BUN (7 - 17 mg/dL) 14 Creatinine (0.5 - 1.0 mg/dL) 0.5 Estimated GFR (>60 ml/min) > 60 Glucose (65 - 99 mg/dL) 177 H Calcium (8.4 - 10.2 mg/dL) 8.9 Phosphorus (2.5 - 4.5 mg/dL) 3.6 Magnesium (1.6 - 2.3 mg/dL) 1.8 Total Bilirubin (0.2 - 1.3 mg/dL) 0.4 AST (14 - 36 U/L) 28 ALT (9 - 52 U/L) 27 Albumin (3.5 - 5.0 g/dL) 2.7 L Hematology CBC w Diff NO MAN DIFF REQ WBC (4.8 - 10.8 /CUMM) 6.9 RBC (4.20 - 5.40 /CUMM) 4.05 L Hgb (12.0 - 16.0 G/DL) 11.7 L Hct (37 - 47 %) 35.6 L MCV (81.0 - 99.0 FL) 88.0 MCH (27.0 - 31.0 PG) 28.8 RDW (11.5 - 14.5 %) 15.2 H Plt Count (130 - 400 /CUMM) 228 MPV (7.4 - 10.4 FL) 7.5 Gran % (42.2 - 75.2 %) 55.0 Lymphocytes % (20.5 - 51.1 %) 25.9 Monocytes % (1.7 - 9.3 %) 17.2 H Eosinophils % (0 - 5 %) 1.2 Basophils % (0.0 - 2.0 %) 0.7 Absolute Granulocytes (1.4 - 6.5 /CUMM) 3.8 Absolute Lymphocytes (1.2 - 3.4 /CUMM) 1.8 Absolute Monocytes (0.10 - 0.60 /CUMM) 1.2 H Absolute Eosinophils (0.0 - 0.7 /CUMM) 0.1 Absolute Basophils (0.0 - 0.2 /CUMM) 0 PUBS MCHC (33.0 - 37.0 G/DL) 32.8 L Last 24 Hours of Keaton Results: No recent cultures Recent Imaging Studies: Modified barium swallow April 15 reveals a weakened oropharyngeal phase of swallowing, with transient penetration of contrast, eliciting a weak cough reflex which is ineffectual in clearing the pooled barium in the vallecula Assessment/Plan Impression: Overall improved, with temperatures and white blood cell count remaining normal off antibiotics; however she remains disoriented and quite weak, with swallowing evaluation results noted, revealing her to be at an increased risk for aspiration, and with evidence on ENT exam yesterday of a left vocal cord paralysis. Suggestion: 1. Further management regarding her nutrition per Medicine 2. Continue to follow off antibiotics
--- NOTE | 2016-04-16 15:44 | Cons- Gastroenterology ---
General Information and HPI Consulting Request Date of Consult: 04/16/16 Requested By: Talisha AVILA MD Reason for Consult: Called late this afternoon to assess patient for PEG, who has been an inpatient at [facility] 1 month, since 03/17/16, with aspiration/dysphagia. Extensive records reviewed. Source of Information: old records Exam Limitations: unable to give history, clinical condition, confusion, poor historian History of Present Illness: (*Extensive medical records over the past month reviewed- patient admitted 03/17). 70-year-old female, HTN/DM/HLD/hypoT4/JEY (? benign), admitted to [facility] 03/17/2016 after being found unresponsive. She had 1 day of left-sided otalgia & difficulty hearing, with T 102. CT showed pneumocephalus in the temporal lobe and opacification of the mastoid air cells. There was concern for bacterial meningeal encephalitis, due to otitis. The patient had Strep pneumo meningitis, confirmed by CSF culture & BC, treated with antibiotics (at various times, Ceftriaxone, Vancomycin, Unasyn), and Decadron. TTE 2 and SAMUEL- all negative for any valvular vegetation. The patient was admitted to the ICU with a prolonged stay. She had episodes of desaturation requiring BiPAP. She also had infiltrates, felt to be from aspiration pneumonia. She had periodic new onset seizures (first EEG consistent with seizure activity, second EEG negative) . Her seizures were treated with Keppra and Depakote. Her mastoid opacification was treated with bilateral ear tubes. The patient was intubated, c /b cardiopulmonary arrest, she was resuscitated. She previously required Levophed & Rashid-Synephrine, & is currently off all pressors. The patient was extubated 04/10/2016, & did not require a tracheostomy. She was recently found by ENT to have left vocal cord paralysis. She has failed multiple swallowing evaluations. Specifically, 04/15/2016: Modified barium swallow with speech pathology showed weakened oropharyngeal phase of swallowing with transient penetration of contrast, elicited a weak cough reflex, which was ineffectual in clearing the pooled barium from the vallecula. PEG tube was recommended, as she was felt to be at increased risk for aspiration. A Dobbhoff feeding tube was placed for TF on 03/20/16, switched to Theron feed tube on 04/11/16. She is currently off antibiotics. The patient is on empiric IV Protonix 40 mg daily. She is receiving prophylactic subcutaneous heparin for DVT prophylaxis. She is a full code. She is currently receiving Glucerna 1.2 TF @ 60cc/hr. (She has never had an EGD. The patient's , Antonio Leslie, is unsure if she ever had a baseline colonoscopy). Allergies/Medications Allergies: Coded Allergies: Sulfa (Sulfonamide Antibiotics) (Intermediate, TURNS RED 03/17/16) Home Med List: Aspirin (Ecotrin*) 81 MG TABLET.DR 1 TAB PO DAILY HEART HEALTH (Reported) Atorvastatin Calcium 10 MG TABLET 1 TAB PO DAILY CHOLESTEROL (Reported) Insulin NPL/Insulin Lispro (Humalog Mix 75-25 Kwikpen) 100 UNIT/ML (75-25) INSULN.PEN DIABETES (Reported) Levothyroxine Sodium 25 MCG TABLET 1 TAB PO DAILY AC THYROID (Reported) Losartan Potassium 100 MG TABLET 1 TAB PO DAILY HEART (Reported) Metformin HCl 1,000 MG TABLET 1 TAB PO BID DIABETES (Reported) Current Medications: Current Medications Sig/Garrick Start time Last Medication Dose Route Stop Time Status Admin Acetaminophen 1,000 MG Q6-PRN PRN 03/17 1630 AC 04/14 N/A 1 UNIT IV 1248 Albuterol Sulfate 3 ML EVERY 4 HRS/AWAKE .. 04/13 1700 AC 04/13 INH 1530 Ciprofloxacin 2 GTT BID 04/15 2200 AC 04/16 OTIC 04/20 1001 0941 Dexamethasone 2 GTT BID 04/15 2200 AC 04/16 OTIC 04/20 1001 0940 Heparin Sodium 5,000 UNIT Q8 03/25 1400 AC 04/16 (Porcine) SC 1403 Hydralazine HCl 10 MG Q8 PRN 03/23 1315 AC 04/12 IV 1805 Insulin Human Regular 0 Q6 04/08 0600 AC 04/16 SC 1230 Levetiracetam 1,500 MG Q12H 03/28 0600 AC 04/16 Sodium Chloride 100 ML IV 0613 Levothyroxine Sodium 12.5 MCG DAILY 03/19 1000 AC 04/16 IV 0940 Non-Formulary 0 SEE ADMIN CRITERIA 04/15 1800 CAN Medication ANY Pantoprazole Sodium 40 MG DAILY 03/18 1000 AC 04/16 IV 0940 Polyethylene Glycol 17 GM DAILY PRN 03/31 1215 AC 04/02 PO 0025 Valproate Sodium 1,000 MG Q8H 03/28 0200 AC 04/16 Sodium Chloride 100 ML IV 0940 Past History Travel History Traveled to [place] past 21 day No Medical History Blood Transfusion Hx: Yes (this admission) Neurological: meningitis (this admission/left otitis), seizure EENT: Left VC paralysis Cardiovascular: hypertension, hyperlipidemia, CAC this admission Respiratory: NONE Gastrointestinal: NONE Hepatic: NONE Renal: NONE Musculoskeletal: NONE Psychiatric: NONE Endocrine: diabetes, hypothyroidism, obesity Blood Disorders: NONE Cancer(s): 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 benign) Family History Relations & Conditions If Any: Family history was reviewed; no changes noted. Psychosocial History Where Do You Live? Home Who Do You Live With? spouse Services at Home: None Primary Language: Georgian Smoking Status: Unknown If Ever Smoked ETOH Use: unknown Illicit Drug Use: unknown Living Will? unknown Power of Risk Assessment Consultant/HCP? unknown Other Social History: per chart (2nd - Antonio Leslie- *[phone]). Antonio Leslie stated he is the closest thing to her POA, although he is not legally her POA. 3 sons- [employer] by her 1st . No other social hx is currently available. Functional Ability ADLs Unknown: dressing, eating, toileting, bathing. Ambulation: independent (? prior to admit) IADLs Unknown: shopping, housework, finances, food prep, telephone, transportation, medication admin. Employment History Employment: unknown ECHO Results (as available) Date of last Echo 03/28/16 EF% 75 Review of Systems Review of Systems: Full 14 point review of systems currently unobtainable, due to patient's clinical status Review of Systems Constitutional: Denies: no symptoms (unobtainable). All Other Systems: Reviewed and Negative (unobtainable) Exam & Diagnostic Data Vital Signs and I&O Vital Signs Date Time Temp Pulse Resp B/P Pulse O2 O2 Flow FiO2 Ox Delivery Rate 04/16 0800 Nasal 3.0L Cannula 04/16 0800 97.7 89 20 112/60 99 Nasal 2.5L Cannula 04/16 0000 97 Nasal 3.0L Cannula 04/15 2242 97.8 80 22 118/68 97 Nasal 3.0L Cannula Intake & Output 04/16 040 Intake Total 4896 129 0947 863 1583 978 Output Total 885 479 5015 445 Balance 5542 202 1310 388 383 533 Intake, IV 345 200 470 100 420 300 Intake, Oral 0 0 Intake, Other 25 Intake, Tube 960 240 224 332 0833 478 Feeding Intake, Tube 400 100 325 125 125 200 Irrigant Number 1 0 2 2 1 Bowel Movements Output, Urine 526 011 0232 445 Patient 169 lb 174 lb 180 lb Weight Physical Exam: Well-developed, slightly malnourished, elderly, obese female, in no apparent distress. Slow mentation. Weak. Sclera anicteric. Conjunctiva pink. Oropharynx clear. Dry mucous membranes. No oral thrush. No aphthous ulcers. There is no adenopathy, thyromegaly, or JVD. No peripheral stigmata of inflammatory bowel disease or chronic liver disease on exam. No spiders on the anterior chest. Breast and pelvic exams: API. No CVA tenderness. Lungs: clear to A&P, with slight decreased breath sounds at the bases bilaterally. Heart exam: regular rate rhythm, S1 and S2, with scant I/ systolic murmur. Abdominal exam: normal bowel sounds, slightly obese, soft belly, nontender, without guarding or rebound. No mass. No organomegaly. No definite abdominal scars seen. No fluid shift. No pulsatile mass. No epigastric bruit. Digital rectal exam: deferred. Extremities: without C, C, or E. No palpable cords. B/L LE ALPS. Distal pulses 2+ bilaterally. DTRs 2-3+ bilaterally. Slightly lethargic. Able to follow a few simple commands. Not cooperative with cranial nerve testing. Oriented x 1 (person). Upgoing right plantar, equivocal left plantar. Gag reflex present, but very diminished. Able to move all extremities , but very weak diffusely. Motor 3/5 B/L. Results Pertinent Lab Results: Laboratory Tests 04/16 04/15 0620 0352 Chemistry Sodium (137 - 145 mmol/L) 139 140 Potassium (3.5 - 5.1 mmol/L) 4.6 3.7 Chloride (98 - 107 mmol/L) 95 L 97 L Carbon Dioxide (22 - 30 mmol/L) 38 H 36 H Anion Gap (5 - 16) 6 7 BUN (7 - 17 mg/dL) 14 12 Creatinine (0.5 - 1.0 mg/dL) 0.5 0.5 Estimated GFR (>60 ml/min) > 60 > 60 Glucose (65 - 99 mg/dL) 177 H 157 H Calcium (8.4 - 10.2 mg/dL) 8.9 8.6 Phosphorus (2.5 - 4.5 mg/dL) 3.6 3.2 Magnesium (1.6 - 2.3 mg/dL) 1.8 1.7 Total Bilirubin (0.2 - 1.3 mg/dL) 0.4 0.3 AST (14 - 36 U/L) 28 24 ALT (9 - 52 U/L) 27 21 Albumin (3.5 - 5.0 g/dL) 2.7 L 2.7 L Hematology CBC w Diff NO MAN DIFF REQ NO MAN DIFF REQ WBC (4.8 - 10.8 /CUMM) 6.9 5.3 RBC (4.20 - 5.40 /CUMM) 4.05 L 3.97 L Hgb (12.0 - 16.0 G/DL) 11.7 L 11.5 L Hct (37 - 47 %) 35.6 L 34.9 L MCV (81.0 - 99.0 FL) 88.0 88.0 MCH (27.0 - 31.0 PG) 28.8 29.0 RDW (11.5 - 14.5 %) 15.2 H 15.5 H Plt Count (130 - 400 /CUMM) 228 237 MPV (7.4 - 10.4 FL) 7.5 6.9 L Gran % (42.2 - 75.2 %) 55.0 47.8 Lymphocytes % (20.5 - 51.1 %) 25.9 32.4 Monocytes % (1.7 - 9.3 %) 17.2 H 17.6 H Eosinophils % (0 - 5 %) 1.2 1.4 Basophils % (0.0 - 2.0 %) 0.7 0.8 Absolute Granulocytes (1.4 - 6.5 /CUMM) 3.8 2.5 Absolute Lymphocytes (1.2 - 3.4 /CUMM) 1.8 1.7 Absolute Monocytes (0.10 - 0.60 /CUMM) 1.2 H 0.9 H Absolute Eosinophils (0.0 - 0.7 /CUMM) 0.1 0.1 Absolute Basophils (0.0 - 0.2 /CUMM) 0 0 PUBS MCHC (33.0 - 37.0 G/DL) 32.8 L 32.9 L 04/14 0422 Chemistry Sodium (137 - 145 mmol/L) 142 Potassium (3.5 - 5.1 mmol/L) 3.8 Chloride (98 - 107 mmol/L) 100 Carbon Dioxide (22 - 30 mmol/L) 36 H Anion Gap (5 - 16) 6 BUN (7 - 17 mg/dL) 14 Creatinine (0.5 - 1.0 mg/dL) 0.5 Estimated GFR (>60 ml/min) > 60 Glucose (65 - 99 mg/dL) 169 H Calcium (8.4 - 10.2 mg/dL) 8.2 L Phosphorus (2.5 - 4.5 mg/dL) 3.4 Magnesium (1.6 - 2.3 mg/dL) 1.8 Total Bilirubin (0.2 - 1.3 mg/dL) 0.4 AST (14 - 36 U/L) 22 ALT (9 - 52 U/L) 28 Albumin (3.5 - 5.0 g/dL) 2.3 L Hematology CBC w Diff NO MAN DIFF REQ WBC (4.8 - 10.8 /CUMM) 6.2 RBC (4.20 - 5.40 /CUMM) 3.72 L Hgb (12.0 - 16.0 G/DL) 10.7 L Hct (37 - 47 %) 32.8 L MCV (81.0 - 99.0 FL) 88.4 MCH (27.0 - 31.0 PG) 28.8 RDW (11.5 - 14.5 %) 15.5 H Plt Count (130 - 400 /CUMM) 246 MPV (7.4 - 10.4 FL) 6.7 L Gran % (42.2 - 75.2 %) 53.9 Lymphocytes % (20.5 - 51.1 %) 26.5 Monocytes % (1.7 - 9.3 %) 18.4 H Eosinophils % (0 - 5 %) 0.8 Basophils % (0.0 - 2.0 %) 0.4 Absolute Granulocytes (1.4 - 6.5 /CUMM) 3.3 Absolute Lymphocytes (1.2 - 3.4 /CUMM) 1.6 Absolute Monocytes (0.10 - 0.60 /CUMM) 1.1 H Absolute Eosinophils (0.0 - 0.7 /CUMM) 0 Absolute Basophils (0.0 - 0.2 /CUMM) 0 PUBS MCHC (33.0 - 37.0 G/DL) 32.6 L Imaging/Other Studies: 04/05/2016: EKG- NSR @ 75, normal axis, normal intervals, low voltage frontal leads. *Numerous imaging studies as per [facility] over the past month since . Assessment/Plan Assessment/Recommendations: (*Extensive medical records over the past month reviewed- patient admitted 03/17). 70-year-old female, HTN/DM/HLD/hypoT4/JEY (? benign), admitted to [facility] 03/17/2016 after being found unresponsive. She had 1 day of left-sided otalgia & difficulty hearing, with T 102. CT showed pneumocephalus in the temporal lobe and opacification of the mastoid air cells. There was concern for bacterial meningeal encephalitis, due to otitis. The patient had Strep pneumo meningitis, confirmed by CSF culture & BC, treated with antibiotics (at various times, Ceftriaxone, Vancomycin, Unasyn), and Decadron. TTE 2 and SAMUEL- all negative for any valvular vegetation. The patient was admitted to the ICU with a prolonged stay. She had episodes of desaturation requiring BiPAP. She also had infiltrates, felt to be from aspiration pneumonia. She had periodic new onset seizures (first EEG consistent with seizure activity, second EEG negative) . Her seizures were treated with Keppra and Depakote. Her mastoid opacification was treated with bilateral ear tubes. The patient was intubated, c /b cardiopulmonary arrest, she was resuscitated. She previously required Levophed & Rashid-Synephrine, & is currently off all pressors. The patient was extubated 04/10/2016, & did not require a tracheostomy. She was recently found by ENT to have left vocal cord paralysis. She has failed multiple swallowing evaluations. Specifically, 04/15/2016: Modified barium swallow with speech pathology showed weakened oropharyngeal phase of swallowing with transient penetration of contrast, elicited a weak cough reflex, which was ineffectual in clearing the pooled barium from the vallecula. PEG tube was recommended, as she was felt to be at increased risk for aspiration. A Dobbhoff feeding tube was placed for TF on 03/20/16, switched to Theron feed tube on 04/11/16. She is currently off antibiotics. The patient is on empiric IV Protonix 40 mg daily. She is receiving prophylactic subcutaneous heparin for DVT prophylaxis. She is a full code. She is currently receiving Glucerna 1.2 TF @ 60cc/hr. (She has never had an EGD. The patient's , Antonio Leslie, is unsure if she ever had a baseline colonoscopy). *I had a long talk with the patient's , Antonio Leslie, on his cell at on 04/16/2016 at 4:50 p.m. regarding the need for PEG feeding tube placement. The risks, benefits, and alternatives were discussed. Specifically, I mentioned the potential risks of bleeding, perforation, sedation, aspiration, peritonitis, intubation to protect airway, and/or the catheter going into an adjacent organ other than the stomach. He is agreeable to pursuing this. I did mention that this may very well have to be done by one of my partners tomorrow, depending on the scheduling logistics. Witnessed telephone informed consent for EGD with PEG placement was obtained from him. The patient's , Antonio Leslie, was told that if for some reason the anatomy of the stomach does not allow for transillumination of the endoscope and good 1:1 motion, that it may have to be retried by IR. SUGGEST: NPO after 11:59 p.m. on 04/16/2016, for tentative EGD with PEG placement on , 04/17/2016, after prophylactic Ancef 1g IVPB (do not hang the antibiotics preoperatively, but rather, bringing them down to the GI suite with the patient). Hold subcutaneous heparin after last dose on 04/16/2016. Check PT with INR. Further recommendations to follow, post PEG. The above was discussed with the medical house staff and with Dr. Bruce. Problem List: 1. Malnutrition 2. Dysphagia 3. Aspiration pneumonia 4. Vocal cord dysfunction Copies To: STACEY BRUCE M.D; MARIELENA ALDRICH,CHADWICK Guzman; AUSTIN ALDRICH,Talisha DICKSON; ALESHIA ALDRICH,EILEEN Tatum; LINDA ALDRICH,YVES Castillo; KIN ALDRICH,MARIO Gaviria; MAGAN ALDRICH,EDNA Gan Acknowledgment - Thank you for your consult request.
[2016-04-16 16:36] VITALS: BP 132/80
[2016-04-16 21:43] VITALS: BP 140/72
[2016-04-17 00:27] VITALS: BP 124/78
--- NOTE | 2016-04-17 07:33 | PN- Housestaff ---
Subjective Follow-up For: Strep pneumo meningitis Subjective: She was in mild distress when a saw her this morning. Vitals were stable. She was afebrile. Plan was to take her for a PEG tube placement this a.m. She remained in restraints, as she was pulling out her lines. She was alert, oriented to place only. Review of Systems Constitutional: Reports: see HPI. Objective Last 24 Hrs of Vital Signs/I&O Vital Signs Date Time Temp Pulse Resp B/P Pulse O2 O2 Flow FiO2 Ox Delivery Rate 04/17 0027 98.6 84 18 124/78 97 Nasal Cannula 04/17 0000 Nasal 3.0L Cannula 04/16 2143 96.8 82 18 140/72 98 04/16 1636 97.6 88 18 132/80 99 Nasal 3.0L Cannula 04/16 0800 Nasal 3.0L Cannula 04/16 0800 97.7 89 20 112/60 99 Nasal 2.5L Cannula Intake & Output 04/17 0800 04/17 0000 04/16 1600 Intake Total 350 120 780 Output Total Balance 350 120 780 Intake, IV 350 100 Intake, Tube 120 480 Feeding Intake, Tube 200 Irrigant Number 1 Bowel Movements Physical Exam General Appearance: No Acute Distress Other Physical Findings: General Exam: AAOx0, Mild distress, Skin: No rashes, no breakdown HEENT: PERRLA, EOMI Neck: Supple, No JVD No cervical lymphadenopathy CVS: Reg Rate, Normal S1,S2, No MGR Resp: Normal air entry, no ronchi/rales Abdomen: Soft, No tenderness, Normal Bowel Sounds Neuro: Normal Speech, Strength 5/5 b/l x 4 extremities, Sensation intact, CN III -XII NL, Reflexes 2+ Extremities: No cyanosis, pedal edema Current Medications: Current Medications Sig/Garrick Start time Last Medication Dose Route Stop Time Status Admin Acetaminophen 1,000 MG Q6-PRN PRN 03/17 1630 AC 04/14 N/A 1 UNIT IV 1248 Albuterol Sulfate 3 ML EVERY 4 HRS/AWAKE .. 04/13 1700 AC 04/13 INH 1530 Cefazolin Sodium 1,000 MG ONCE ONE 04/17 1200 AC IV 04/17 1201 Ciprofloxacin 2 GTT BID 04/15 2200 AC 04/16 OTIC 04/20 1001 2136 Dexamethasone 2 GTT BID 04/15 2200 AC 04/16 OTIC 04/20 1001 2135 Dextrose/Sodium 1,000 ML Q20H 04/17 0330 AC 04/17 Chloride IV 0603 Heparin Sodium 5,000 UNIT Q8 03/25 1400 DC 04/16 (Porcine) SC 1403 Hydralazine HCl 10 MG Q8 PRN 03/23 1315 AC 04/12 IV 1805 Insulin Human Regular 0 Q6 04/08 0600 AC 04/17 SC 0604 Levetiracetam 1,500 MG Q12H 03/28 0600 AC 04/17 Sodium Chloride 100 ML IV 0603 Levothyroxine Sodium 12.5 MCG DAILY 03/19 1000 AC 04/16 IV 0940 Pantoprazole Sodium 40 MG DAILY 03/18 1000 AC 04/16 IV 0940 Polyethylene Glycol 17 GM DAILY PRN 03/31 1215 AC 04/02 PO 0025 Valproate Sodium 1,000 MG Q8H 03/28 0200 AC 04/17 Sodium Chloride 100 ML IV 0147 Last 24 Hrs of Lab/Keaton Results Last 24 Hrs of Labs/Mics: Laboratory Tests 04/17/16 0545: Sodium Pending, Potassium Pending, Chloride Pending, Carbon Dioxide Pending, Anion Gap Pending, BUN Pending, Creatinine Pending, BUN/Creatinine Ratio Pending , PT Pending, INR Pending, APTT Pending, CBC w Diff Pending, WBC Pending, RBC Pending, Hgb Pending, Hct Pending, MCV Pending, MCH Pending, RDW Pending, Plt Count Pending, MPV Pending, PUBS MCHC Pending Assessment/Plan Assessment: Ms. Leslie is a 70-year-old female with past medical history of hypertension, hyperlipidemia, hypothyroidism and diabetes mellitus who presented to the emergency department after being found unresponsive at home. She was initially provided for in the ICU and found to have strep pneumo meningitis. Below is the current management while the patient is now on the telemetry floor: 1. Strep pneumo meningitis * Patient has strep pneumo meningitis confirmed by CSF culture and blood culture. * Initial CSF white count was 28,000 and repeat LP showed WBC of 42. 3rd LP showed WBC of 14 and 1 RBC. 2x TTEs and one SAMUEL have both been negative for any valvular pathology. * Mental status improving * She received treated with ceftriaxone (stopped on 03/31/2016) and vancomycin intermittently along with IV unasyn * Currently monitoring off anx * ID input appreciated, will monitor mental status closely and if patient spikes fever will wallace culture 2. Dysphagia * Patient previosly failed MBS prior to transition to tele floor * Currently on tube feeds as per nutrition recommendations * PEG tube placement 3. Discharge planning * Patient will require STR after discharge * Case management aware and once PEG tube placed, patient will be transitioned to STR/ECF for continued care 4. Otitis media with tympanostomy tubes * Continue to follow ENT recommendations * OFf antiobiotics for now * Wallace culture if she spikes a fever 5. Seizures * Continue keppra and depakote daily FULL CODE DVTP: Heparin SC Tube feeds Mild pain pathway Problem List: 1. Aspiration pneumonia 2. S/P tympanic tube insertion 3. Dysphagia 4. Malnutrition 5. Vocal cord dysfunction 6. Hypothyroidism 7. T2DM (type 2 diabetes mellitus) Pain Ratin Pain Location: Unable to assess Pain Goal: Pain 4 or less Pain Plan: Tylenol when necessary Tomorrow's Labs & Rationales: CBC-to monitor for leukocytosis, hemoglobin. Basic electrolyte panel-2 monitor kidney function.
[2016-04-17 08:00] LABS: ABSOLUTE BASOPHIL COUNT 0 /CUMM (0.0-0.2); ABSOLUTE EOSINOPHIL COUNT 0.1 /CUMM (0.0-0.7); ABSOLUTE GRANULOCYTE CT 3.7 /CUMM (1.4-6.5); ABSOLUTE LYMPH COUNT 1.9 /CUMM (1.2-3.4); ABSOLUTE MONOCYTE COUNT 1.1 /CUMM (0.10-0.60); BASOPHIL % 0.6 % (0.0-2.0); EOSINOPHIL % 1.1 % (0-5); GRANULOCYTE % 53.9 % (42.2-75.2); HEMATOCRIT 36.5 % (37-47); MEAN CORPUSCULAR HGB 28.8 PG (27.0-31.0); MEAN CORPUSCULAR HGB CONC 32.8 G/DL (33.0-37.0); MEAN CORPUSCULAR VOLUME 87.8 FL (81.0-99.0); MEAN PLATELET VOLUME 7.9 FL (7.4-10.4); PLATELET COUNT 208 /CUMM (130-400); RBC DISTRIBUTION WIDTH 15.3 % (11.5-14.5); RED BLOOD CELL CT 4.16 /CUMM (4.20-5.40); WHITE BLOOD CELL COUNT 6.8 /CUMM (4.8-10.8)
[2016-04-17 08:12] VITALS: BP 130/90
[2016-04-17 08:22] LABS: PT 12.5 SEC (9.4-12.5); PTT 33 SEC (25-37)
--- NOTE | 2016-04-17 08:47 | Proc Note Endoscopy ---
Endoscopy Procedure Medical History: unchanged Mental Status: confused (consent from Antonio Leslie) Heart/Lung Eval Prior to Sedation: within normal limits Candidate for Sedation? Yes Procedure Date: 04/17/16 Procedure Type: EGD w/biopsy (with aborted PEG- desaturation) Patient Account Specialist: BETITO GRAFF MD ASA Classification: III Indications: INDX: (*Please refer to extensive GI consult of 04/16/2016) 70 y/o female, HTN/DM/HLD/hypoT4/JEY (? benign), admitted to [facility] after being found unresponsive, found to have Strep pneumo meningitis, probably seeded from left sided otitis, with complicated course. She had secondary seizures. She had a prolonged intubation & is now extubated (we were contacted post-extubation). Apparently, she was close to needing a tracheostomy. She has failed numerous swallowing evaluations with speech pathology, and is felt to be high risk for aspiration. She has malnutrition, dysphagia, and left-sided vocal cord paralysis. Informed consent for EGD with PEG placement was obtained from the patient's , Antonio Leslie (cell- ), after careful estimation of the risks and benefits, including the need for possible re-intubation. She was receiving Glucerna 1.2 TF @ 60 mL/hr, currently NPO. 04/17/2016: PT 12.5, INR 1.19, PTT 33. Instrument: diagnostic gastroscope Meds Received: MAC Patient's Tolerance: poor Complications: desaturation, requiring chin lift, Ambu & 100% NRB, w/o re- intubation. Extent Reached: second part of duodenum Procedure: Upper endoscopy to the second portion of the duodenum with biopses with aborted PEG placement, was performed with the Olympus high definition videoendoscope, after obtaining informed consent from the patient's , Antonio Leslie (cell : [phone]) with the surveillance monitor and pulse oximeter, with the assistance of Dr. Caicedo, of [facility]. The patient's Kaofeed tube was removed preoperatively. A mouthpiece was placed in the usual fashion to protect the patient's teeth. The patient was maintained in the supine position and sedated by [facility]. At this point, the endoscope was advanced from the mouth into the esophagus, using direct visualization technique. I did not inspect the vocal cord. The esophageal mucosa appeared normal. There were no esophageal rings, webs, lesions, strictures, or ulcers. There was no monilia or vesicles. There was no esophageal ribbing. The Z line was well demarcated at 36 cm (supine). There was no significant hiatal hernia pouch. No esophageal inflammation was seen. There were no ectopic islands, nor gross Mclaughlin's esophagus. There were no esophageal or gastric varices, nor any Shayla Adame tear. The antonio of the stomach distended normally with air insufflation. Direct and retroflexed views of the stomach were performed. There was nothing endoscopically to suggest gastroparesis or portal gastropathy. The mucosa of the gastric cardia, fundus, lesser curvature, incisura, body, and antrum appeared normal, without any gastric ulcers or gastric lesions, aside from a few scattered, sessile, diminutive, 3 mm gastric polyps in the fundus and posterior wall of the body. Search Advertising Strategist biopsies were obtained: (Specimen A). The proximal stomach was not atrophic appearing. The pylorus was patent, without any gastric outlet obstruction or channel ulcer. The duodenal bulb and duodenal sweep appeared normal, without any duodenal ulcers, distal ulcerations, or angiodysplasias. I was not able to see the ampulla with the direct-viewing scope. The folds of the second portion of the duodenum were normal in caliber, without any flattening, nodularity, scalloping, or mosaic pattern. No active upper GI bleeding was seen. The patient tolerated the endoscopic portion of the exam welll. After inspection of the upper GI tract as described above, the location of the PEG tube was determined by transillumination and finger indentation, with good 1 :1 motion. This area was located in the lower body of the stomach and the epigastrum, slightly to the right of the midline. The skin was then cleansed with ChloraPrep and draped in a sterile fashion. The Bill-Cook PEG 24-Pull set was opened. At this point, the patient began to desaturate. Although the anterior abdominal wall was prepped, an incision was never made because of the patient's respiratory instability, and therefore prophylactic IV Ancef was never given. The endoscope was removed. Dr. Caicedo, of anesthesia, provided chin lift, 100% NRB mask, and Ambu bag. Calls were made to Dr. Bruce & Dr. Treviño, intraoperatively. The patient was felt to be high risk for re-intubation, as it probably would require a prolonged stay on the ventilator, but obviously, this would have to be done if the patient's O2 saturations did not improve. She did well with conservative therapy and did not require reintubation. The PEG portion of the procedure was aborted. This will have to be readdressed down the road, after pulmonary stabilization. Hopefully, the patient will become more alert and do better with subsequent swallow evaluations. Another option could be placement of a feeding tube by IR. The patient's , Antonio Leslie, was contacted postoperatively, regarding the above. Documenting photographs were obtained and placed inside the patient's chart. Impression: 1. Tiny 3 mm sessile gastric polyps in the proximal stomach. Search Advertising Strategist biopsies obtained: (Specimen A). 2. Z line at 36 cm. No significant hiatal hernia. Otherwise negative study to the duodenal sweep. 3. Good site seen for PEG placement in the lower gastric body, with good 1:1 motion and transillumination in the epigastric region, however the patient desaturated, and the PEG was aborted. An incision was never made in the abdominal wall and *therefore, IV Ancef was never administered. The patient responded to chin lift, Ambu bag, & 100% NRB mask, without the need for re- intubation. Recommendations: As per anesthesiology, transfer to PACU for continuous monitoring, with consideration for ICU vs. CPI telemetry for further monitoring, depending on how she does in the PACU. Anesthesiology feels that the patient is not ready for transfer back to a General Medical bed at this point. The medical house staff is to replace the Kaofeed tube & may resume previous tube feeds (Glucerna 1.2 TF @ 60cc/hr), with aspiration precautions. Await results of 04/17/2016: diminutive gastric polyp biopsies. May resume sc heparin for DVT prophylaxis & all other medications. I would advise that the patient have a repeat swallow evaluation with speech pathology next week, when hopefully she is more alert. * If she repeatedly fails swallow evaluations, if a repeat PEG is attempted, it will have to be done after the patient is re-intubated, although it took the patient quite some time to be extubated earlier this admission, as she almost required a tracheostomy. Another option could be an attempt at feeding tube placement by IR. The above findings and recommendations were discussed with Dr. Caicedo, Dr. Bruce, and Dr. Treviño, postoperatively, and with the patient's , Antonio Leslie, at cell [phone]. Further inpatient GI follow-up based on above. Please keep us abreast of the patient's clinical status. Again , a repeat PEG cannot be attempted until the patient's pulmonary/airway status is stabilized. ADDENDUM: 04/18/2016- A. TINY 3 MM GASTRIC POLYPS, PROXIMAL STOMACH, BIOPSIES: FRAGMENTS OF GASTRIC MUCOSA WITH MINIMAL CHRONIC INFLAMMATION, AND MINIMAL GLANDULAR DILATATION. GIEMSA STAIN IS NEGATIVE FOR HELICOBACTER-TYPE STRUCTURES. NEGATIVE FOR EVIDENCE OF MALIGNANCY. Dictated by: ONOFRE ALDRICH,FABIOLA Sprague The diminuitive gastric "polyps" showed minimal chronic inflammation, HP- negative. I called the pt's , Antonio Leslie, 04/18/2016 at 7:06 p.m., on his cell [phone], regarding the unremarkable gastric bxs. The pt is on PPI. Further inpatient GI follow-up based on above. Please keep us abreast of the patient's clinical status. Again, a repeat PEG cannot be attempted until the patient's pulmonary/ airway status has stabilized. She has been put back on TF via Theron-feed tube. Hopefully, she will become more alert & have another swallow evaluation next week. *If she repeatedly fails swallow evaluations, if a repeat PEG is attempted , it will have to be done after the patient is re-intubated, although it took the patient quite some time to be extubated earlier this admission, as she almost required a tracheostomy. Another option could be an attempt at feeding tube placement by IR. The above was also discussed with Dr. Bruce again, this p.m. CC: STACEY BRUCE M.D; MARIELENA ALDRICH,CHADWICK Guzman; AUSTIN ALDRICH,Talisha DICKSON; ALESHIA ALDRICH,EILEEN Tatum; LINDA ALDRICH,YVES Castillo; KIN ALDRICH,MARIO Gaviria; MAGAN ALDRICH,EDNA
--- NOTE | 2016-04-17 10:59 | NUR ---
PHYSICAL THERAPY- PT OFF THE FLOOR FOR PEG TUBE PLACEMENT. PER PROTOCOL, WILL DEFER TX >=24 HOURS AND ENSURE PROPER PLACEMENT PRIOR TO MOBILIZATION. WILL FOLLOW APPROPRIATE.
--- NOTE | 2016-04-17 13:23 | NUR ---
SPEECH THERAPY: PT UNDERWENT ATTEMPTED PEG TUBE PLACEMENT WHICH WAS ABORTED PT WAS FELT TO BE HIGH RISK FOR RE-INTUBATION, PROBABLE PROLONGED STAY ON VENTILATOR. PER REPORT, PT DID WELL WITH CONSERVATIVE THEARPY AND DID NOT REQUIRED REINTUBATION, THE PEG PORITON OF PROCEDURE WAS ABORTED. REPEAT PEG CANNOT BE ATTEMPTED UNTIL THE PATIENT'S PULOMARY/AIRWAY STATUS IS STABILIZED. ST CONTINUE TO FOLLOW FOR REPEAT SWALLOW EVALUATION PT STATUS IMPROVES. D/W RN, MD, & PT'S SON; ALL IN AGREEMENT.
[2016-04-17 13:41] VITALS: BP 148/90
--- NOTE | 2016-04-17 13:42 | NUR ---
PT O2 100% ON 3L NC. DR BENTON AT BEDSIDE AND STATES PT DOESN'T NEED THE CONTINUOUS O2 MONITORING IF PT IS ON THE NC AND TO D/C IT. IT WAS ONLY ORDERED B/C PT WAS ON NON-REBREATHER BEFORE.
--- NOTE | 2016-04-17 13:44 | PN- Infect Dx ---
Subjective Subjective: Afebrile without complaints. She was unable to undergo PEG placement earlier this morning secondary to desaturation during the endoscopy and prior to the incision in the abdominal wall. Objective Last 24 Hrs of Vital Signs/I&O Vital Signs Date Time Temp Pulse Resp B/P Pulse O2 O2 Flow FiO2 Ox Delivery Rate 04/17 0812 97.6 98 18 130/90 98 Nasal 3.0L Cannula 04/17 0800 94 Nasal 3.0L Cannula 04/17 0027 98.6 84 18 124/78 97 Nasal Cannula 04/17 0000 Nasal 3.0L Cannula 04/16 2143 96.8 82 18 140/72 98 04/16 1636 97.6 88 18 132/80 99 Nasal 3.0L Cannula Intake & Output 04/17 1600 04/17 0800 04/17 0000 Intake Total 350 120 Output Total Balance 350 120 Intake, IV 350 Intake, Tube 120 Feeding Physical Exam Other Physical Findings: She is awake and alert, remains confused, but in no acute distress Lungs are clear Heart regular rhythm with no change in her 04/28 systolic murmur Abdomen is soft, nontender with positive bowel sounds Extremities no cyanosis, clubbing or edema; PICC remains in the right upper extremity Results Last 24 Hours of Lab Results: Laboratory Tests 04/17 0545 Chemistry Sodium (137 - 145 mmol/L) 139 Potassium (3.5 - 5.1 mmol/L) 4.7 Chloride (98 - 107 mmol/L) 96 L Carbon Dioxide (22 - 30 mmol/L) 37 H Anion Gap (5 - 16) 7 BUN (7 - 17 mg/dL) 15 Creatinine (0.5 - 1.0 mg/dL) 0.5 Estimated GFR (>60 ml/min) > 60 BUN/Creatinine Ratio (7 - 25 %) 30.0 H Coagulation PT (9.4 - 12.5 SEC) 12.5 INR (0.90 - 1.19) 1.19 APTT (25 - 37 SEC) 33 Hematology CBC w Diff NO MAN DIFF REQ WBC (4.8 - 10.8 /CUMM) 6.8 RBC (4.20 - 5.40 /CUMM) 4.16 L Hgb (12.0 - 16.0 G/DL) 12.0 Hct (37 - 47 %) 36.5 L MCV (81.0 - 99.0 FL) 87.8 MCH (27.0 - 31.0 PG) 28.8 RDW (11.5 - 14.5 %) 15.3 H Plt Count (130 - 400 /CUMM) 208 MPV (7.4 - 10.4 FL) 7.9 Gran % (42.2 - 75.2 %) 53.9 Lymphocytes % (20.5 - 51.1 %) 27.9 Monocytes % (1.7 - 9.3 %) 16.5 H Eosinophils % (0 - 5 %) 1.1 Basophils % (0.0 - 2.0 %) 0.6 Absolute Granulocytes (1.4 - 6.5 /CUMM) 3.7 Absolute Lymphocytes (1.2 - 3.4 /CUMM) 1.9 Absolute Monocytes (0.10 - 0.60 /CUMM) 1.1 H Absolute Eosinophils (0.0 - 0.7 /CUMM) 0.1 Absolute Basophils (0.0 - 0.2 /CUMM) 0 PUBS MCHC (33.0 - 37.0 G/DL) 32.8 L Last 24 Hours of [place] Results: No recent cultures Assessment/Plan Impression: Stable overall with temperatures and white blood cell count remaining normal off antibiotics, though she remains confused and disoriented. PEG placement, scheduled for earlier today, had to be deferred secondary to desaturation. Suggestion: 1. Agree with repeat swallowing evaluation in several days with reevaluation of need for PEG at that time 2. Continue to follow off antibiotics
--- NOTE | 2016-04-17 14:20 | PN- Att Addend ---
Attending Addendum Attending Brief Note Overnight patient was moved to the general medical floor for further management. This morning she went to the endoscopy suite for EGD. I received a call from Chu Patricia MD stating that patient had become markedly hypoxic when the procedure was attempted. His recommendation was that patient would require intubation and mechanical ventilation if the procedure were to proceed. Given her previous history of prolonged mechanical ventilation he was deemed that patient may have another prolonged episode of mechanical ventilation with its associated risks and complications. Decision was made to defer the PEG tube placement. Credit Investigator Talisha Treviño MD was in agreement with this plan. Patient was placed on the 100% nonrebreather, and was maintaining saturation of 100%. She was transferred to one off for continuous pulse oximetry. When evaluated the patient on the medical unit she had been weaned down to 3 L of oxygen and was saturating 100%. She was lethargic but awake. She was able to answer simple questioning with monosyllables. She moves her extremities spontaneously although very weakly. was present at the bedside. She is otherwise afebrile and hemodynamically stable. Vital Signs Date Time Temp Pulse Resp B/P Pulse O2 O2 Flow FiO2 Ox Delivery Rate 04/17 1341 98.0 95 16 148/90 98 Nasal 3.0L Cannula 04/17 0812 97.6 98 18 130/90 98 Nasal 3.0L Cannula 04/17 0800 94 Nasal 3.0L Cannula 04/17 0027 98.6 84 18 124/78 97 Nasal Cannula 04/17 0000 Nasal 3.0L Cannula 04/16 2143 96.8 82 18 140/72 98 04/16 1636 97.6 88 18 132/80 99 Nasal 3.0L Cannula HEENT: Anicteric, no pallor Heart: S1-S2 regular Lungs: Fair entry bilaterally, no added sounds Abdomen: Soft, nontender with normal bowel sounds Extremities: No pedal edema Skin: Intact with no rashes anteriorly. Laboratory Tests 04/17/16 0545: Anion Gap 7, Estimated GFR > 60, BUN/Creatinine Ratio 30.0 H, PT 12.5, INR 1.19 , APTT 33, CBC w Diff NO MAN DIFF REQ, RBC 4.16 L, MCV 87.8, MCH 28.8, RDW 15.3 H, MPV 7.9, Gran % 53.9, Lymphocytes % 27.9, Monocytes % 16.5 H, Eosinophils % 1.1, Basophils % 0.6, Absolute Granulocytes 3.7, Absolute Lymphocytes 1.9, Absolute Monocytes 1.1 H, Absolute Eosinophils 0.1, Absolute Basophils 0, PUBS MCHC 32.8 L Problems: 1. Strep pneumonia meningitis/otitis media/bacteremia 2. Acute hypoxic respiratory failure status post prolonged mechanical ventilation 3. Dysphagia 4. Seizures 5. Hypertension Plan: -Given above events, patient will be monitored over the weekend with repeat swallow evaluation next week. -Place NG tube and begin tube feeding. -No evidence of infection at present. Antibiotic course completed. -No need to repeat CBC or serum chemistry tomorrow. -Continue bedside physical therapy as tolerated. -Continue antiepileptics therapy with Keppra and Depakote. - slowly weaned off oxygen supplementation.
--- NOTE | 2016-04-17 14:36 | Proc Note Internal Medicine ---
Medicine Procedure Procedure Date: 04/17/16 Medical Procedure(s): K-O tube placement Pre-Operative Diagnosis: Dysphagia, failed swallow evaluation Post-Operative Diagnosis: Same, with K-O tube in situ Estimated Blood Loss: none Anesthesia: n/a Procedure Findings: Identification and procedure confirmed with nurse and patient. Patient's vitals stable with sp02 97% before the procedure. Patient explained about the process and obtained nonverbal consent. Formal consent was taken with her power of ip attorney Kevin Leslie () today. KO-tube required length measured by adding length between tip of nose to ear to xiphoid process. 10ml water flushed into the tube to lubricate the metal end of the tube. Tube was lubricated, and inserted up to 55 cm at nostril level. Proper placement was confirmed clinically with pushing air through 50cc tube and Examined over the Epigastric Area and Cardia Area of the stomach for the sound. No complication noted. Oxygen saturation was well above 95% throughout the whole process. SpO2 was 97% after the procedure. Stat portable chest x-ray has been ordered. Awaiting confirmation. Resident and cointern informed informed. Update: Check CXR shows (post-procedure): IMPRESSION: Feeding tube tip at the level of the midesophagus. 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 Update after the CXR: Dr Denton tried manuvering the tube by slightly pulling it out and pushing in, but the patient was not able to comprehend the instructions, so it was taken out fully. She was saturating well at 98% before and after the procedure. -Plan: placing KO-tube again later in couple of hours, or seek anesthesia team's help. Will defer the decision to the primary team. -Resident Dr Kim and co-sports management intern Dr Denton were also present. K-O tube placement tried again at 7:45pm. With patient's permission, the process as mentioned above was carried out. Patient's saturation was 95-97% all throughout the procedure, and was more alert orient and could follow instructions than before, but she was coughing more than usual after the procedure. I waited for the chest x-ray to confirm the placement. I got a call from radiology department that the position of the tube cannot be confirmed in the stomach, and I checked the film myself too. I could not confirm the correct positioning of the tube, so I pulled the tube out without trauma, and noted the vitals. She was and is still saturating well above 95%, and her cough has decreased to some extent. Nursing staff were present at the time and were assiting me too. Also informed resident Dr Morejon in ICU and Dr Chen my co- sports management intern from [facility]. Will defer the decision to put IR guided PEG tube or other options to the primary team. Thank you for the cooperation. 04/17/162019 hrs.
--- NOTE | 2016-04-17 15:13 | RADIOLOGY REPORT ---
EXAMINATION: XR PORTABLE CHEST CLINICAL INFORMATION: Feeding tube placement COMPARISON: 04/14/2016 TECHNIQUE: Portable AP view of the chest was obtained. FINDINGS: Feeding tube tip lies at the level of the midesophagus, below the level of the eugenio. Right PICC tip lies in the region of the distal SVC. Lung volumes are symmetric, without dense consolidation. Lung apices are not fully included on the exam. Visualized bowel gas pattern is nonobstructive. No acute osseous findings are seen. IMPRESSION: Feeding tube tip at the level of the midesophagus.
[2016-04-17 16:04] VITALS: BP 130/80
--- NOTE | 2016-04-17 16:37 | Event Note ---
Event Note Event Note: Initial K-O tube passed was noted to be in the esophagus and on examination there was some coiling of the tube in the oropharynx. K-O tube was then removed and further attempts to pass the tube were met with resistance as patient unable to follow commands to swallow on insertion. Due to not wanting to create edema in the posterior pharynx and due to patient request, attempting to place the tube was stopped. Patient remained adequate O2 saturations >96% throughout the attempts and was resting comfortably at the conclusion. The on-call ICU team generously recommended they will return later to attempt placement again. Evening tele call team made aware of these events and will follow closely.
--- NOTE | 2016-04-17 20:41 | RADIOLOGY REPORT ---
EXAMINATION: XR PORTABLE CHEST CLINICAL INFORMATION: Feeding tube placement. COMPARISON: Portable chest x-ray 04/17/2016. TECHNIQUE: Portable AP view of the chest was obtained. FINDINGS: Interval repositioning of a previously identified feeding tube, with the weighted tip of the feeding tube now identified within the right lung base. The feeding tube travels within the right mainstem bronchus and likely terminates within a bronchiole of the right lower lobe. The lungs remain mildly hypoinflated. No pleural effusions or pneumothoraces are identified. Redemonstrated is a right upper extremity PICC with the weighted tip of the catheter visualized terminating in the distal SVC. Cardiomediastinal contours are stable. IMPRESSION: Interval repositioning of the feeding tube, which is now visualized traversing the right mainstem bronchus and terminating within the right lung base. These results were called to the patient's nurse. The feeding tube had reportedly already been removed at the time of this report.
[2016-04-17 23:35] VITALS: BP 102/68
--- NOTE | 2016-04-18 06:48 | PN- Housestaff ---
See Addendum Subjective Follow-up For: Strep pneumo meningitis Otitis media B/L Mastoiditis Dysphagia Left vocal cord paralysis Seizures Tele-Events Since Last Visit: NSR HR 85-98, no overnight events. Subjective: Patient seen and examined at bedside this AM. She continues to remained confused , believes she is in [facility], and is unable to answer orientation questioning. ROS unable to be completed secondary to clinical status. Review of Systems Constitutional: Reports: see HPI. Objective Last 24 Hrs of Vital Signs/I&O Vital Signs Date Time Temp Pulse Resp B/P Pulse O2 O2 Flow FiO2 Ox Delivery Rate 04/18 0841 98.3 96 16 161/85 93 Room Air 04/18 0000 99 Nasal 3.0L Cannula 04/17 2335 97.7 91 18 102/68 92 Room Air 04/17 1604 97.6 99 18 130/80 98 04/17 1600 98 Nasal 3.0L Cannula 04/17 1341 98.0 95 16 148/90 98 Nasal 3.0L Cannula Intake & Output 04/18 1600 04/18 0800 04/18 0000 Intake Total 450 450 Output Total Balance 450 450 Intake, IV 450 450 Intake, Oral 0 Number 1 1 Bowel Movements Physical Exam General Appearance: No Acute Distress, AAOx0, disoriented Skin: No Significant Lesion HEENT: Atraumatic, Mucous Membr. moist/pink Neck: +2 Carotid Pulse wo Bruit Lymphatic: Cervical nl Cardiovascular: Regular Rate, Normal S1, Normal S2 Lungs: Normal Air Movement Abdomen: Normal Bowel Sounds, Soft, No Tenderness Neurological: Normal Speech, Normal Tone Extremities: No Clubbing, No Cyanosis, No Edema Vascular: Pulses Symmetrical Current Medications: Current Medications Sig/Garrick Start time Last Medication Dose Route Stop Time Status Admin Acetaminophen 1,000 MG Q6-PRN PRN 03/17 1630 AC 04/14 N/A 1 UNIT IV 1248 Albuterol Sulfate 3 ML EVERY 4 HRS/AWAKE .. 04/13 1700 AC 04/13 INH 1530 Cefazolin Sodium 1,000 MG ONCE ONE 04/17 1200 DC IV 04/17 1201 Ciprofloxacin 2 GTT BID 04/15 2200 AC 04/18 OTIC 04/20 1001 1027 Dexamethasone 2 GTT BID 04/15 2200 AC 04/18 OTIC 04/20 1001 1003 Dextrose/Sodium 1,000 ML Q20H 04/17 0330 AC 04/17 Chloride IV 1314 Heparin Sodium 5,000 UNIT Q8 04/17 1400 AC 04/18 (Porcine) SC 0617 Hydralazine HCl 10 MG Q8 PRN 03/23 1315 AC 04/12 IV 1805 Insulin Human Regular 0 Q6 04/08 0600 AC 04/18 SC 0638 Levetiracetam 1,500 MG Q12H 03/28 0600 AC 04/18 Sodium Chloride 100 ML IV 0618 Levothyroxine Sodium 12.5 MCG DAILY 03/19 1000 AC 04/18 IV 1003 Pantoprazole Sodium 40 MG DAILY 03/18 1000 AC 04/18 IV 1003 Polyethylene Glycol 17 GM DAILY PRN 03/31 1215 AC 04/02 PO 0025 Valproate Sodium 1,000 MG Q8H 03/28 0200 AC 04/18 Sodium Chloride 100 ML IV 1027 Assessment/Plan Assessment: Ms. Leslie is a 70-year-old female with past medical history of hypertension, hyperlipidemia, hypothyroidism and diabetes mellitus who presented to the emergency department after being found unresponsive at home. She was initially provided for in the ICU and found to have strep pneumo meningitis. Below is the current management while the patient is now on the telemetry floor: 1. Strep pneumo meningitis * Patient has strep pneumo meningitis confirmed by CSF culture and blood culture. * Initial CSF white count was 28,000 and repeat LP showed WBC of 42. 3rd LP showed WBC of 14 and 1 RBC. 2x TTEs and one SAMUEL have both been negative for any valvular pathology. * Mental status continues to fluctuate, this AM patient unable to respond to orientation questioning * She received treated with ceftriaxone (stopped on 03/31/2016) and vancomycin intermittently along with IV unasyn * Currently monitoring off abx * ID input appreciated, will monitor mental status closely and if patient spikes fever will wallace culture 2. Dysphagia * Patient previosly failed MBS prior to transition to tele floor * PEG tube placement unable to be performed secondary to desaturation during procedure * Several attempts have been made to place NGT without success; patient unable to follow directions/swallow or flex her neck to facilitate placement * Will attempt again today to place NGT and follow up proper positioning with CXR * Patient will likely have repeat MBS early next week and if she fails, consideration for PEG tube placement with IR (hopefully using local anesthesia instead of moderate sedation) * One NGT placed, will resume glucerna 1.2 for tube feeds 3. Discharge planning * Patient will require STR after discharge * Case management aware and bed search under way 4. Otitis media with tympanostomy tubes * Continue to follow ENT recommendations * Off antiobiotics for now * Wallace culture if she spikes a fever, shows s/s infectious etiology/leukocytosis 5. Seizures * Continue keppra and depakote daily * No further episodes of seizure while on tele floor 6. Respiratory failure * Patient s/p intubation * She has been weaned off of O2 via nasal cannula and saturating well on RA * Provide supplemental O2 as needed to maintain O2 sats >92% FULL CODE DVTP: Heparin SC Tube feeds Mild pain pathway Problem List: 1. S/P tympanic tube insertion 2. Aspiration pneumonia 3. Dysphagia 4. Malnutrition 5. Vocal cord dysfunction 6. Hypothyroidism 7. T2DM (type 2 diabetes mellitus) 8. Pneumococcal meningitis 9. Respiratory failure 10. Seizures Pain Ratin Pain Location: N/A Pain Goal: Remain pain free Pain Plan: Mild pain pathway. Tomorrow's Labs & Rationales: Consider electrolyte panel.
[2016-04-18 08:41] VITALS: BP 161/85
--- NOTE | 2016-04-18 11:27 | PN- Infect Dx ---
Subjective Subjective: Afebrile without complaints. Problems with the attempted placement of a Keofeed yesterday afternoon and evening noted. Objective Last 24 Hrs of Vital Signs/I&O Vital Signs Date Time Temp Pulse Resp B/P Pulse O2 O2 Flow FiO2 Ox Delivery Rate 04/18 0841 98.3 96 16 161/85 93 Room Air 04/18 0000 99 Nasal 3.0L Cannula 04/17 2335 97.7 91 18 102/68 92 Room Air 04/17 1604 97.6 99 18 130/80 98 04/17 1600 98 Nasal 3.0L Cannula 04/17 1341 98.0 95 16 148/90 98 Nasal 3.0L Cannula Intake & Output 04/18 1600 04/18 0800 04/18 0000 Intake Total 450 450 Output Total Balance 450 450 Intake, IV 450 450 Intake, Oral 0 Number 1 1 Bowel Movements Physical Exam Other Physical Findings: She is easily arousable but remains confused and disoriented Lungs are clear Heart regular rhythm with no change in her /6 systolic murmur Abdomen is soft, nontender with positive bowel sounds Extremities no cyanosis, clubbing or edema; PICC remains in the right upper extremity with no inflammation at the site Results Last 24 Hours of Lab Results: Laboratory Tests 04/17 0545 Chemistry Sodium (137 - 145 mmol/L) 139 Potassium (3.5 - 5.1 mmol/L) 4.7 Chloride (98 - 107 mmol/L) 96 L Carbon Dioxide (22 - 30 mmol/L) 37 H Anion Gap (5 - 16) 7 BUN (7 - 17 mg/dL) 15 Creatinine (0.5 - 1.0 mg/dL) 0.5 Estimated GFR (>60 ml/min) > 60 BUN/Creatinine Ratio (7 - 25 %) 30.0 H Coagulation PT (9.4 - 12.5 SEC) 12.5 INR (0.90 - 1.19) 1.19 APTT (25 - 37 SEC) 33 Hematology CBC w Diff NO MAN DIFF REQ WBC (4.8 - 10.8 /CUMM) 6.8 RBC (4.20 - 5.40 /CUMM) 4.16 L Hgb (12.0 - 16.0 G/DL) 12.0 Hct (37 - 47 %) 36.5 L MCV (81.0 - 99.0 FL) 87.8 MCH (27.0 - 31.0 PG) 28.8 RDW (11.5 - 14.5 %) 15.3 H Plt Count (130 - 400 /CUMM) 208 MPV (7.4 - 10.4 FL) 7.9 Gran % (42.2 - 75.2 %) 53.9 Lymphocytes % (20.5 - 51.1 %) 27.9 Monocytes % (1.7 - 9.3 %) 16.5 H Eosinophils % (0 - 5 %) 1.1 Basophils % (0.0 - 2.0 %) 0.6 Absolute Granulocytes (1.4 - 6.5 /CUMM) 3.7 Absolute Lymphocytes (1.2 - 3.4 /CUMM) 1.9 Absolute Monocytes (0.10 - 0.60 /CUMM) 1.1 H Absolute Eosinophils (0.0 - 0.7 /CUMM) 0.1 Absolute Basophils (0.0 - 0.2 /CUMM) 0 PUBS MCHC (33.0 - 37.0 G/DL) 32.8 L Last 24 Hours of Ke[place] Results: No recent cultures Assessment/Plan Impression: Stable overall with temperatures and white blood cell count remaining normal off antibiotics, though she remains confused and disoriented status post treatment for pneumococcal meningitis/sepsis. Nutritional status will need to be addressed status post unsuccessful placement of PEG and apparent concern by ENT regarding placement of a Keofeed. Suggestion: 1. Further management regarding her nutrition per Medicine, with probable repeat swallowing evaluation at some point 2. Continue to follow off antibiotics
--- NOTE | 2016-04-18 11:46 | NUR ---
PHYSICAL THERAPY- PT TRANSFERRED TO TELEMETRY S/P DECOMPENSATION DURING EGD/ATTEMPTED PEG PLACEMENT AND RESULTANT SIGNIFICANT HYPOXIA. PLEASE RECONSULT ONCE PT MEDICALLY STABLE AND APPROPRIATE FOR P.T. INTERVENTION.
--- NOTE | 2016-04-18 13:10 | PN- Ear, Nose & Throat ---
Subjective Subjective: Patient is being rechecked for her vocal cord paralysis Currently sleeping, unable to assess his quality Objective Vital Signs and I&Os Vital Signs Date Time Temp Pulse Resp B/P Pulse O2 O2 Flow FiO2 Ox Delivery Rate 04/18 0841 98.3 96 16 161/85 93 Room Air 04/18 0000 99 Nasal 3.0L Cannula 04/17 2335 97.7 91 18 102/68 92 Room Air 04/17 1604 97.6 99 18 130/80 98 04/17 1600 98 Nasal 3.0L Cannula 04/17 1341 98.0 95 16 148/90 98 Nasal 3.0L Cannula Intake & Output 04/18 1600 04/18 0800 04/18 0000 04/17 1600 04/17 0800 04/17 0000 Intake Total 100 450 450 140.125 350 120 Output Total Balance 100 450 450 140.125 350 120 Intake, IV 100 450 450 140.125 350 Intake, Oral 0 Intake, Tube 120 Feeding Number 1 1 Bowel Movements Physical Exam: Lying in bed, sleeping Voice- unable to assess , no stridor while at rest Head: normocephalic, atraumatic Ears: Canals- clear; Tympanic Membranes- right-sclerotic with middle ear serous effusion, myringotomy tube extruded lying on top of the tympanic membrane Left-sclerotic, regarding the tube in place joint patent, lumen patent, middle ear clear Nose: Septum- anterior excoriations, nasal prongs in place ; septum deviated to the right Turbinates- clear; Airway-adequate on the left, partly obstructed on the right Oral cavity: Mucosa- clear Oropharynx: Posterior wall- clear Neck: supple Fiberoptic laryngoscopy: Fiberoptic scope inserted via left nostril Nasopharynx: Clear Hypopharynx: Piriform sinuses-Clear; posterior wall-medialized with narrow hypopharyngeal airway mucous membranes-coated with thickened secretions Larynx: Epiglottis- intact; vocal cords- right-mobile; left-immobile Arytenoids-symmetric posterior commisure- small amount of secretions pooling Esophageal inlet - small amount of secretions pooling MRI brain 04/14/16: Fluid enhancement within the mastoid air cells and middle ear cavities, worse on the right. 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 Left vocal cord paralysis So far no improvement since last exam 04/15/2016 With secondary voice weakness and stridor (although stridor is not audible at rest) Symmetric arytenoids- I do not suspect intubation trauma as the source left vocal cord paralysis Most likely vocal cord paralysis is related to current illness I will reexamine the patient in a few days 2. Dysphagia With the generalized neuromuscular weakness throughout hypopharynx rec continue with tube feeds and reassess in a few days KO feeding tube feed inserted at the bedside at this time via right nostril without difficulty It is best to consider PEG tube at this time. 3. Persistent otitis media with effusion, right ear It appears that myringotomy tube in the right ear has extruded. There is middle ear effusion. Question at this point is raised whether patient needs to undergo recurrent placement of myringotomy tube for middle ear drainage Assessment/Plan Assessment/Plan Assessment/Plan 1. Left vocal cord paralysis So far no improvement since last exam 04/15/2016 With secondary voice weakness and stridor (although stridor is not audible at rest) Symmetric arytenoids- I do not suspect intubation trauma as the source left vocal cord paralysis Most likely vocal cord paralysis is related to current illness I will reexamine the patient in a few days 2. Dysphagia With the generalized neuromuscular weakness throughout hypopharynx rec continue with tube feeds and reassess in a few days KO feeding tube feed inserted at the bedside at this time via right nostril without difficulty It is best to consider PEG tube at this time. 3. Persistent otitis media with effusion, right ear It appears that myringotomy tube in the right ear has extruded. There is middle ear effusion. Question at this point is raised whether patient needs to undergo recurrent placement of myringotomy tube for middle ear drainage Attending MD Review Statement Attending Statement Attending MD Statement: examined this patient, discuss w/resident/PA/[employer]
--- NOTE | 2016-04-18 13:56 | RADIOLOGY REPORT ---
EXAMINATION: XR PORTABLE CHEST CLINICAL INFORMATION: Feeding tube placement. COMPARISON: 04/17/2016. TECHNIQUE: Portable AP view of the chest was obtained. FINDINGS: An enteric tube is identified with its tip below the diaphragm in the body of the stomach. A small left-sided pleural effusion is suggested with a small focus of discoid atelectasis suggested at the left lung base. The lungs otherwise appear clear. IMPRESSION: Feeding tube appears in satisfactory position. Trace left pleural effusion.
--- NOTE | 2016-04-18 15:57 | NUR ---
SPEECH THERAPY: PT SEEN AT BEDSIDE, SLEEPING. 2 FAMILY MEMBERS PRESENT. RN STATES PT WAS OBSERVED TO BE MORE AWAKE THIS MORNING. RN STATES THERE WERE PROBLEMS NOTED W/ ATTEMPTED PLACEMENT OF KEOFEED YESTERDAY AFTERNOON AND EVENING. ENT RE-EVALUATED PT TODAY. PER REPORT, NO IMPROVEMENT OF LEFT VOCAL CORD PARALYSIS IN COMPARISON TO 04/15/2016. ENT PLACED KEOFEED TUBE W/OUT DIFFICULTY. PT NOT SUFFICIENTLY AWAKE/ALERT TO PARTCIPATE IN DYSPHAGIA TX. ST TO CONDUCT REPEAT VISUALIZATION STUDY (MBS) CLINICALLY INDICATED ( PT STATUS/LEVEL OF ALERTNESS IMPROVES). D/W FAMILY MEMBERS, RN, .
[2016-04-18 16:30] VITALS: BP 120/71
[2016-04-18 22:56] VITALS: BP 156/68
[2016-04-19 07:51] VITALS: BP 110/64
--- NOTE | 2016-04-19 09:29 | PN- Housestaff ---
Subjective Follow-up For: -Bacterial meningitis (s. pneumo), complicated by seizures -BL otitis media with mastoiditis -L sided vocal cord paralysis w dysphagia -DM Complaints: no complaints Subjective: Mrs. Leslie was seen and examined. She is lying comfortably in no acute distress. Still disoriented to time and place however was able to identify her sons by picture. After she was reoriented she was able to answer correctly when asked where she was. When asked multiple times, she is able to follow most commands and comply with a cranial nerve examination. She states she also acute complaints. Review of Systems Constitutional: Reports: see HPI. Objective Last 24 Hrs of Vital Signs/I&O Vital Signs Date Time Temp Pulse Resp B/P Pulse O2 O2 Flow FiO2 Ox Delivery Rate 04/19 0751 97.5 82 16 110/64 92 Room Air 04/19 0000 Room Air 04/18 2256 97.6 93 24 156/68 96 Room Air 04/18 1630 98.6 68 16 120/71 91 Intake & Output 04/19 1600 04/19 0800 04/19 0000 Intake Total 410 410 Output Total Balance 410 410 Intake, IV 150 250 Intake, Oral 0 0 Intake, Tube 160 60 Feeding Intake, Tube 100 100 Irrigant Physical Exam General Appearance: Alert, Cooperative, No Acute Distress, AAOx2 Skin: No Significant Lesion HEENT: Atraumatic, PERRLA, EOMI Neck: No JVD Cardiovascular: Regular Rate, Normal S1, Normal S2, 2/6 systolic murmur - improved from when i heard it in the ICU. Lungs: Clear to Auscultation, Normal Air Movement Abdomen: Normal Bowel Sounds, Soft, No Tenderness Neurological: Normal Speech, Strength at 5/5 X4 Ext, CN grossly normal - CN XI unble to be tested as she could not follow the command. Extremities: No Edema Current Medications: Current Medications Sig/Garrick Start time Last Medication Dose Route Stop Time Status Admin Acetaminophen 1,000 MG Q6-PRN PRN 03/17 1630 AC 04/14 N/A 1 UNIT IV 1248 Albuterol Sulfate 3 ML EVERY 4 HRS/AWAKE .. 04/13 1700 AC 04/13 INH 1530 Ciprofloxacin 2 GTT BID 04/15 2200 AC 04/19 OTIC 04/20 1001 1120 Dexamethasone 2 GTT BID 04/15 2200 AC 04/19 OTIC 04/20 1001 1120 Dextrose/Sodium 1,000 ML Q20H 04/17 0330 DC 04/17 Chloride IV 1314 Heparin Sodium 5,000 UNIT Q8 04/17 1400 AC 04/19 (Porcine) SC 0610 Hydralazine HCl 10 MG Q8 PRN 03/23 1315 AC 04/12 IV 1805 Insulin Human Regular 0 Q6 04/08 0600 AC 04/19 SC 0610 Levetiracetam 1,500 MG Q12H 03/28 0600 AC 04/19 Sodium Chloride 100 ML IV 0611 Levothyroxine Sodium 12.5 MCG DAILY 03/19 1000 AC 04/19 IV 1119 Pantoprazole Sodium 40 MG DAILY 03/18 1000 AC 04/19 IV 1119 Polyethylene Glycol 17 GM DAILY PRN 03/31 1215 AC 04/02 PO 0025 Valproate Sodium 1,000 MG Q8H 03/28 0200 AC 04/19 Sodium Chloride 100 ML IV 1119 Last 24 Hrs of Lab/Keaton Results Last 24 Hrs of Labs/Mics: Laboratory Tests 04/19/16 0556: Anion Gap 9, Estimated GFR > 60, BUN/Creatinine Ratio 14.0 Lines/Diet/Fluids NG/[place]/Rec Still Needed? Yes Assessment/Plan Assessment: Ms. Leslie is a 70-year-old female with past medical history of hypertension, hyperlipidemia, hypothyroidism and diabetes mellitus who presented to the emergency department after being found unresponsive at home. She was initially admitted to the ICU for management of strep pneumo meningitis, which was complicated by seizures, cardiac and respiratory arrest. Below is the current management while the patient is now on the telemetry floor: 1. Strep pneumo meningitis * I did not examine her personally over the last week but she does appear slightly improved compared to previous documentation. She still disoriented however is able to follow commands and answer many questions fairly approprirately.She was disoriented to place this morning, but when her location was reinforced, she was able to correctly answer when asked again. * Confirmed by CSF culture and blood culture s/p tx with ceftriaxone (stopped on 03/31/2016) and * vancomycin intermittently along with IV unasyn. 2x TTEs and one SAMUEL have both been negative for any valvular pathology - currently off of abx. * ID input appreciated - watching of of ABx - we will panculture if she becomes febrile once again. 2. Dysphagia * Failed swallow eval and could not have a PEG tube insertion secondary to desaturation during procedure * Currently on [place] NGT feeding tube - glucerna 1.2 for tube feeds * Patient will likely have repeat MBS early next week and if she fails, consideration for PEG tube placement with IR (hopefully using local anesthesia instead of moderate sedation) 3. Otitis media s/p BL tympanostomy tube placement * Continue to follow ENT recommendations * pending ENT reassessment on thursday for possibly right middle ear fluid drainage - off antiobiotics for now in spite of tympanostomy tube * [place] culture if she spikes a fever, shows s/s infectious etiology/leukocytosis 4. Seizures * Continue keppra and depakote daily * No further episodes of seizure while on tele floor 5. Respiratory failure * Patient s/p intubation * She has been weaned off of O2 via nasal cannula and saturating well on RA * Provide supplemental O2 as needed to maintain O2 sats >92% 6. Discharge planning * Patient will require STR after discharge * Case management aware and bed search under way FULL CODE DVTP: Heparin SC Mj Tube feeds Mild pain pathway Problem List: 1. Meningitis 2. Sepsis 3. Altered mental state 4. Seizures 5. Dysphagia 6. T2DM (type 2 diabetes mellitus) Pain Ratin Pain Location: na Pain Goal: Remain pain free Pain Plan: continue Tomorrow's Labs & Rationales: none Pain Plan: continue Tomorrow's Labs & Rationales: none
--- NOTE | 2016-04-19 11:42 | PN- Att Addend ---
Attending Addendum Attending Brief Note Patient seen and examined. Resting comfortably and not in any acute distress. No issues overnight reported by nursing staff. She is tolerating tube feeding. She remains afebrile and hemodynamically stable. With regards her mental status remains lethargic and confused. She is moving all extremities spontaneously. Recommendations: -Continue NG tube feeding over the weekend. -Repeat swallow evaluation after the weekend. If she feels again, contact the interventional radiology service for placement of a PEG tube. -ENT service to reassess patient after the weekend particularly for the fusion in the right ear. If patient shows any signs of infection she will be started on IV antibiotic therapy will require drainage of the right ear effusion. -Continue physical therapy as tolerated. -Repeat serum chemistry and CBC on Thursday.
[2016-04-19 15:43] VITALS: BP 132/70
[2016-04-20 00:16] VITALS: BP 132/80
[2016-04-20 07:41] VITALS: BP 130/70
--- NOTE | 2016-04-20 08:16 | PN- Housestaff ---
JERONIMO ALDRICH,VANGIE 04/20/16 0816: Subjective Follow-up For: strep pneumo meningitis dysphagia Subjective: pt was seen this morning, sitting comfortably on the recliner. she reports that she feels better but "not as stable" as she would like to be. She feels wobbly with some shaking of her head and arms noted. her speech does not really make sense, and she barely follows commands although she is alert. will get repeat barium swallow tomorrow, if she doesnt do well, will consider peg tube insertion with IR. Review of Systems Constitutional: Reports: see HPI. Objective Last 24 Hrs of Vital Signs/I&O Vital Signs Date Time Temp Pulse Resp B/P Pulse O2 O2 Flow FiO2 Ox Delivery Rate 04/20 0741 98.6 86 16 130/70 92 Room Air 04/20 0016 96.5 94 18 132/80 97 Room Air 04/19 1543 97.0 91 16 132/70 93 Room Air Intake & Output 04/20 1600 04/20 0800 04/20 0000 Intake Total 930 880 Output Total Balance 930 880 Intake, IV 250 200 Intake, Oral 0 Intake, Tube 480 480 Feeding Intake, Tube 200 200 Irrigant Number 11 0 Bowel Movements Physical Exam General Appearance: Alert Skin: No Significant Lesion Cardiovascular: Regular Rate, Normal S1, Normal S2 Lungs: Clear to Auscultation Abdomen: Normal Bowel Sounds, Soft Extremities: No Edema Current Medications: Current Medications Sig/Garrick Start time Last Medication Dose Route Stop Time Status Admin Acetaminophen 1,000 MG Q6-PRN PRN 03/17 1630 AC 04/14 N/A 1 UNIT IV 1248 Albuterol Sulfate 3 ML EVERY 4 HRS/AWAKE .. 04/13 1700 AC 04/13 INH 1530 Ciprofloxacin 2 GTT BID 04/15 2200 DC 04/20 OTIC 04/20 1001 1056 Dexamethasone 2 GTT BID 04/15 2200 DC 04/20 OTIC 04/20 1001 1056 Heparin Sodium 5,000 UNIT Q8 04/17 1400 AC 04/20 (Porcine) SC 0623 Hydralazine HCl 10 MG Q8 PRN 03/23 1315 AC 04/12 IV 1805 Insulin Human Regular 0 Q6 04/08 0600 AC 04/20 SC 0026 Levetiracetam 1,500 MG Q12H 03/28 0600 AC 04/20 Sodium Chloride 100 ML IV 0610 Levothyroxine Sodium 12.5 MCG DAILY 03/19 1000 AC 04/20 IV 1056 Pantoprazole Sodium 40 MG DAILY 03/18 1000 AC 04/20 IV 1056 Polyethylene Glycol 17 GM DAILY PRN 03/31 1215 AC 04/02 PO 0025 Valproate Sodium 1,000 MG Q8H 03/28 0200 AC 04/20 Sodium Chloride 100 ML IV 1056 Assessment/Plan Assessment: Ms. Leslie is a 70-year-old female with past medical history of hypertension, hyperlipidemia, hypothyroidism and diabetes mellitus who presented to the emergency department after being found unresponsive at home. She was initially admitted to the ICU for management of strep pneumo meningitis, which was complicated by seizures, cardiac and respiratory arrest. Below is the current management while the patient is now on the telemetry floor: 1. Strep pneumo meningitis * I did not examine her personally over the last week but she does appear slightly improved compared to previous documentation. She still disoriented however is able to follow commands and answer many questions fairly approprirately.She was disoriented to place this morning, but when her location was reinforced, she was able to correctly answer when asked again. * Confirmed by CSF culture and blood culture s/p tx with ceftriaxone (stopped on 03/31/2016) and * vancomycin intermittently along with IV unasyn. 2x TTEs and one SAMUEL have both been negative for any valvular pathology - currently off of abx. * ID input appreciated - watching of of ABx - we will panculture if she becomes febrile once again. 2. Dysphagia * Failed swallow eval and could not have a PEG tube insertion secondary to desaturation during procedure * Currently on [place] NGT feeding tube - glucerna 1.2 for tube feeds * Patient will likely have repeat MBS early next week and if she fails, consideration for PEG tube placement with IR (hopefully using local anesthesia instead of moderate sedation) 3. Otitis media s/p BL tympanostomy tube placement * Continue to follow ENT recommendations * pending ENT reassessment on thursday for possibly right middle ear fluid drainage - off antiobiotics for now in spite of tympanostomy tube * [place] culture if she spikes a fever, shows s/s infectious etiology/leukocytosis 4. Seizures * Continue keppra and depakote daily * No further episodes of seizure while on tele floor 5. Respiratory failure * Patient s/p intubation * She has been weaned off of O2 via nasal cannula and saturating well on RA * Provide supplemental O2 as needed to maintain O2 sats >92% 6. Discharge planning * Patient will require STR after discharge * Case management aware and bed search under way FULL CODE DVTP: Heparin SC [place] Tube feeds Mild pain pathway Problem List: 1. Meningitis 2. Altered mental state 3. Dysphagia Pain Ratin Pain Location: none Pain Goal: Remain pain free Pain Plan: none Tomorrow's Labs & Rationales: none DVT/Prophylaxis: mechanical, pharmacological STACEY BENTON MD 04/20/16 1121: Attending MD Review Statement Attending Statement Attending MD Statement: examined this patient, discuss w/resident/PA/PRODUCTION GRIP, agreed w/resident/PA/PRODUCTION GRIP, discussed with family, reviewed EMR data (avail), discussed with nursing, amended to note Attending Assessment/Plan: Patient seen and examined. Sitting comfortably in chair not in acute distress. She appears more alert today. She is also less confused. She asked where writing pad to write down questions. is present at the bedside. She remains afebrile hemodynamically stable. She continues to maintain her saturation on room air. On examination lungs are clear bilaterally. We will continue to feeding today and repeat a swallow evaluation during the week. If she feels a swallow evaluation for replacement of PEG tube hopefully with the assistance of the interventional radiology service.
[2016-04-20 15:56] VITALS: BP 130/68
[2016-04-21 00:44] VITALS: BP 118/74
--- NOTE | 2016-04-21 06:54 | PN- Housestaff ---
See Addendum Subjective Follow-up For: Strep pneumo meningitis Mastoiditis Otitis media Dysphagia on tube feeds Left vocal cord paralysis Tele-Events Since Last Visit: Off tele. Subjective: Patient seen and examined at bedside this AM. She is more alert and AAOx1 ( improved from AAOx0). She continues to endorse decreased hearing bilaterally with bilateral tinnitus. She admits to mild confusion as well. She is amenable to repeat swallow eval today. Review of Systems Constitutional: Reports: malaise. Denies: chills. EENTM: Reports: hearing changes. Denies: visual changes, throat pain. Cardiovascular: Denies: chest pain, palpitations. Respiratory: Denies: cough, short of breath. Gastrointestinal: Denies: abdominal pain. Genitourinary: Denies: dysuria. Musculoskeletal: Denies: back pain, neck pain. Skin: Denies: rash. Neurological/Psychological: Reports: confusion. Objective Last 24 Hrs of Vital Signs/I&O Vital Signs Date Time Temp Pulse Resp B/P Pulse O2 O2 Flow FiO2 Ox Delivery Rate 04/21 0800 98.0 95 20 130/80 93 Room Air 04/21 0044 98.1 93 16 118/74 94 04/20 1556 97.5 91 16 130/68 93 Room Air Intake & Output 04/21 1600 04/21 0800 04/21 0000 Intake Total 780 770 Output Total Balance 780 770 Intake, IV 200 220 Intake, Oral 0 Intake, Tube 480 350 Feeding Intake, Tube 100 200 Irrigant Physical Exam General Appearance: Alert, Cooperative, No Acute Distress, AAOx1 (oriented to place) Skin: No Rashes, No Significant Lesion HEENT: Atraumatic, PERRLA, Mucous Membr. moist/pink Neck: Supple, +2 Carotid Pulse wo Bruit Lymphatic: Cervical nl Cardiovascular: Regular Rate, Normal S1, Normal S2, No Murmurs Lungs: Normal Air Movement Abdomen: Normal Bowel Sounds, Soft, No Tenderness Neurological: Normal Tone Extremities: No Clubbing, No Cyanosis, No Edema Vascular: Pulses Symmetrical Current Medications: Current Medications Sig/Garrick Start time Last Medication Dose Route Stop Time Status Admin Acetaminophen 1,000 MG Q6-PRN PRN 03/17 1630 AC 04/14 N/A 1 UNIT IV 1248 Albuterol Sulfate 3 ML EVERY 4 HRS/AWAKE .. 04/13 1700 AC 04/13 INH 1530 Ciprofloxacin 2 GTT BID 04/15 2200 DC 04/20 OTIC 04/20 1001 1056 Dexamethasone 2 GTT BID 04/15 2200 DC 04/20 OTIC 04/20 1001 1056 Heparin Sodium 5,000 UNIT Q8 04/17 1400 AC 04/21 (Porcine) SC 0603 Hydralazine HCl 10 MG Q8 PRN 03/23 1315 AC 04/12 IV 1805 Insulin Human Regular 0 Q6 04/08 0600 AC 04/21 SC 0603 Levetiracetam 1,500 MG Q12H 03/28 0600 AC 04/21 Sodium Chloride 100 ML IV 0603 Levothyroxine Sodium 12.5 MCG DAILY 03/19 1000 AC 04/20 IV 1056 Pantoprazole Sodium 40 MG DAILY 03/18 1000 AC 04/20 IV 1056 Polyethylene Glycol 17 GM DAILY PRN 03/31 1215 AC 04/02 PO 0025 Valproate Sodium 1,000 MG Q8H 03/28 0200 AC 04/21 Sodium Chloride 100 ML IV 0109 Assessment/Plan Assessment: Ms. Leslie is a 70-year-old female with past medical history of hypertension, hyperlipidemia, hypothyroidism and diabetes mellitus who presented to the emergency department after being found unresponsive at home. She was initially admitted to the ICU for management of strep pneumo meningitis, which was complicated by seizures, cardiac and respiratory arrest. Below is the current management while the patient is on the telemetry floor: 1. Strep pneumo meningitis * Patient continues below baseline but has improved to AAOx1 today (oriented to place) and she is able to follow occasional commands * The strep pneumo meningitis was confirmed by CSF culture and blood culture s/p tx with ceftriaxone (stopped on 03/31/2016) and vancomycin intermittently along with IV unasyn. 2x TTEs and one SAMUEL have both been negative for any valvular pathology - currently off of abx. * ID input appreciated - watching of of ABX - we will panculture if she becomes febrile once again. 2. Dysphagia * Failed prior swallow eval and could not have a PEG tube insertion secondary to desaturation during procedure * Currently on [place] NGT feeding- glucerna 1.2 at 60 cc/h (goal) * Patient will have repeat MBS today and if she fails, consideration for PEG tube placement with IR (hopefully using local anesthesia instead of moderate sedation) 3. Otitis media s/p BL tympanostomy tube placement * Continue to follow ENT recommendations * We are currently pending ENT reassessment for possibly right middle ear fluid drainage - off antiobiotics for now in spite of tympanostomy tube * [place] culture if she spikes a fever, shows s/s infectious etiology/leukocytosis 4. Seizures * Continue keppra and depakote daily * No further episodes of seizure while on tele floor 5. Acute respiratory failure * Resolved * Patient s/p intubation while in the ICU * She has been weaned off of O2 via nasal cannula and saturating well on RA * Provide supplemental O2 as needed to maintain O2 sats >92% 6. Discharge planning * Patient will require STR after discharge * Case management aware and bed search under way FULL CODE DVTP: Heparin SC [place] Tube feeds Mild pain pathway Problem List: 1. Pneumococcal meningitis 2. Respiratory failure 3. Seizures 4. Toxic encephalopathy 5. T2DM (type 2 diabetes mellitus) 6. Hypothyroidism 7. Vocal cord dysfunction 8. Dysphagia 9. S/P tympanic tube insertion Pain Ratin Pain Location: n/a Pain Goal: Remain pain free Pain Plan: Mild pain pathway (IV tylenol, meds cannot be crushed/passed through KO tube) Tomorrow's Labs & Rationales: Consider BEP to monitor electrolyte status in setting of NPO with tube feeds. Consider BEP to monitor electrolyte status in setting of NPO with tube feeds.
[2016-04-21 08:00] VITALS: BP 130/80
--- NOTE | 2016-04-21 15:26 | PN- Infect Dx ---
Subjective Subjective: Afebrile without complaints. She again failed a swallow evaluation mostly due to her lethargy. Objective Last 24 Hrs of Vital Signs/I&O Vital Signs Date Time Temp Pulse Resp B/P Pulse O2 O2 Flow FiO2 Ox Delivery Rate 04/21 0800 98.0 95 20 130/80 93 Room Air 04/21 0044 98.1 93 16 118/74 94 04/20 1556 97.5 91 16 130/68 93 Room Air Intake & Output 04/21 1600 04/21 0800 04/21 0000 Intake Total 680 780 770 Output Total Balance 680 780 770 Intake, IV 200 220 Intake, Oral 0 Intake, Tube 480 480 350 Feeding Intake, Tube 200 100 200 Irrigant Number 1 Bowel Movements Physical Exam Other Physical Findings: She is easily arousable but remains lethargic in no acute distress Lungs are clear Heart regular rhythm with no change in her 3/6 systolic ejection murmur Extremities PICC remains in the right upper extremity with no inflammation at the site; no cyanosis, clubbing or edema Results Last 24 Hours of Lab Results: Laboratory Tests 04/19 0556 Chemistry Sodium (137 - 145 mmol/L) 142 Potassium (3.5 - 5.1 mmol/L) 3.7 Chloride (98 - 107 mmol/L) 100 Carbon Dioxide (22 - 30 mmol/L) 33 H Anion Gap (5 - 16) 9 BUN (7 - 17 mg/dL) 7 Creatinine (0.5 - 1.0 mg/dL) 0.5 Estimated GFR (>60 ml/min) > 60 BUN/Creatinine Ratio (7 - 25 %) 14.0 Last 24 Hours of [place] Results: No recent cultures Assessment/Plan Impression: Stable overall with temperatures and white blood cell count remaining normal off antibiotics, though she remains lethargic and confused status post treatment for pneumococcal meningitis/sepsis. She again failed the swallowing evaluation, but this is to be repeated in the a.m. Suggestion: 1. Await repeat swallowing evaluation, with further decisions regarding her nutrition based on this 2. Continue to follow off antibiotics Will no longer follow at this time, but please call with any questions
[2016-04-21 16:41] VITALS: BP 110/65
[2016-04-21 23:26] VITALS: BP 106/68
--- NOTE | 2016-04-22 06:00 | NUR ---
WAS NEXT TO PTS ROOM WHEN NOTICING PT STARTING TO COUGH MORE THAN USUAL; UPON ENTERING THE ROOM, THE FEED TUBE WAS SEEN AT 15CM FROM THE 55CM AT THE BEGINNING OF SHIFT YET TAPED ON STILL; TUBE FEED STOPPED; DR GRAJEDA NOTIFIED ALONG WITH RESPIRATORY; KO TUBE PULLED OUT AND SAT WAS AT 96; PT NO LONGER COUGHING LIKE BEFORE AND STATES SHE FEELS BETTER;
--- NOTE | 2016-04-22 06:59 | PN- Housestaff ---
See Addendum Subjective Follow-up For: Strep pneumo meningitis Mastoiditis Otitis media Dysphagia on tube feeds Left vocal cord paralysis Tele-Events Since Last Visit: Off tele. Subjective: Patient seen and examined at bedside this AM. She is resting comfortably and very lethargic. She falls asleep during questioning and ROS unable to be completed. Review of Systems Constitutional: Reports: see HPI. Objective Last 24 Hrs of Vital Signs/I&O Vital Signs Date Time Temp Pulse Resp B/P Pulse O2 O2 Flow FiO2 Ox Delivery Rate 04/22 0902 98.2 78 22 120/70 95 Room Air 04/21 2326 97.7 84 20 106/68 96 Room Air 04/21 1641 98.1 86 16 110/65 93 Room Air 04/21 1600 Room Air Intake & Output 04/22 1600 04/22 0800 04/22 0000 Intake Total 460 180 Output Total Balance 460 180 Intake, Tube 460 180 Feeding Physical Exam General Appearance: Cooperative, No Acute Distress Skin: No Significant Lesion HEENT: Atraumatic, PERRLA, Mucous Membr. moist/pink Neck: Supple, No JVD, +2 Carotid Pulse wo Bruit Lymphatic: Cervical nl Cardiovascular: Regular Rate, Normal S1, Normal S2 Lungs: Normal Air Movement Abdomen: Normal Bowel Sounds, Soft, No Tenderness Neurological: Normal Tone Extremities: No Clubbing, No Cyanosis Vascular: Pulses Symmetrical Current Medications: Current Medications Sig/Garrick Start time Last Medication Dose Route Stop Time Status Admin Acetaminophen 1,000 MG Q6-PRN PRN 03/17 1630 AC 04/14 N/A 1 UNIT IV 1248 Albuterol Sulfate 3 ML EVERY 4 HRS/AWAKE .. 04/13 1700 AC 04/13 INH 1530 Dextrose/Sodium 1,000 ML .[id number] 04/22 1100 AC 04/22 Chloride IV 1116 Heparin Sodium 5,000 UNIT Q8 04/17 1400 AC 04/22 (Porcine) SC 0546 Hydralazine HCl 10 MG Q8 PRN 03/23 1315 AC 04/12 IV 1805 Insulin Human Regular 0 Q6 04/08 0600 AC 04/22 SC 1202 Levetiracetam 1,500 MG Q12H 03/28 0600 AC 04/22 Sodium Chloride 100 ML IV 0527 Levothyroxine Sodium 12.5 MCG DAILY 03/19 1000 AC 04/22 IV 0921 Pantoprazole Sodium 40 MG DAILY 03/18 1000 AC 04/22 IV 0921 Polyethylene Glycol 17 GM DAILY PRN 03/31 1215 AC 04/02 PO 0025 Valproate Sodium 1,000 MG Q8H 03/28 0200 AC 04/22 Sodium Chloride 100 ML IV 0921 Last 24 Hrs of Lab/[place] Results Last 24 Hrs of Labs/Mics: Laboratory Tests 04/22/16 0500: Anion Gap 7, Estimated GFR > 60, BUN/Creatinine Ratio 23.3 Orders Radiology Findings: CXR 04/22/16: IMPRESSION: 1. No evidence of aspiration pneumonia. 2. Hypoinflated lungs with bibasilar atelectasis. Assessment/Plan Assessment: Ms. Leslie is a 70-year-old female with past medical history of hypertension, hyperlipidemia, hypothyroidism and diabetes mellitus who presented to the emergency department after being found unresponsive at home. She was initially admitted to the ICU for management of strep pneumo meningitis, which was complicated by seizures, cardiac and respiratory arrest. Below is the current management while the patient is on the telemetry floor: 1. Strep pneumo meningitis * Patient's mentation continues to wax and wane, she is more lethargic today * Strep pneumo meningitis was confirmed by CSF culture and blood culture s/p tx with ceftriaxone (stopped on 03/31/2016) and vancomycin intermittently along with IV unasyn. 2x TTEs and one SAMUEL have both been negative for any valvular pathology - currently off of abx. * ID input appreciated - watching of of ABX - we will panculture if she becomes febrile once again. 2. Dysphagia * Failed prior swallow eval and could not have a PEG tube insertion secondary to desaturation during procedure * KO tube feeding stopped as NGT was pulled out and concerns that tube was entering airway * F/U CXR after removal show no s/s aspiration * Continue patient on D51/2NS at 60 cc/h for nutrition * Patient had repeat swallow eval today and failed, she is not suitable for oral intake, therefore she will likely have PEG tube placement tomorrow 3. Otitis media s/p BL tympanostomy tube placement * Continue to follow ENT recommendations * We are currently pending ENT reassessment for possibly right middle ear fluid drainage - off antiobiotics for now * [place] culture if she spikes a fever or shows s/s infectious etiology/ leukocytosis 4. Seizures * Continue keppra and depakote daily * No further episodes of seizure while on the tele floor 5. Acute respiratory failure * Resolved, patient s/p intubation while in the ICU * She has been weaned off of O2 via nasal cannula and saturating well on RA * Provide supplemental O2 as needed to maintain O2 sats >92% 6. Discharge planning * Patient will require STR after discharge * Case management aware and bed search under way FULL CODE DVTP: Heparin SC [place] Tube feeds Mild pain pathway Problem List: 1. S/P tympanic tube insertion 2. Dysphagia 3. Vocal cord dysfunction 4. Hypothyroidism 5. T2DM (type 2 diabetes mellitus) 6. Anemia 7. Seizures 8. Respiratory failure 9. Pneumococcal meningitis Pain Ratin Pain Location: n/a Pain Goal: Remain pain free Pain Plan: Mild pain pathway Tomorrow's Labs & Rationales: CBC, no BEP needed.
[2016-04-22 09:02] VITALS: BP 120/70
--- NOTE | 2016-04-22 09:36 | RADIOLOGY REPORT ---
EXAMINATION: XR PORTABLE CHEST CLINICAL INFORMATION: Choking on tube feeds. Evaluate for aspiration pneumonitis. COMPARISON: 04/18/2016 TECHNIQUE: Portable AP view of the chest was obtained. FINDINGS: Feeding tube has been removed. The tip of the right arm peripherally inserted catheter is in satisfactory position at the junction of the superior vena cava and right atrium. Lungs are hypoinflated and this results in crowding of bronchovascular structures within the bases. There are linear, hazy opacities of discoid atelectasis within the bases. No acute airspace opacification, pulmonary edema or pleural effusion. Cardiac silhouette is normal in size. No acute skeletal findings. IMPRESSION: 1. No evidence of aspiration pneumonia. 2. Hypoinflated lungs with bibasilar atelectasis.
[2016-04-22 15:30] VITALS: BP 128/78
--- NOTE | 2016-04-22 21:00 | CT SCAN REPORT ---
EXAMINATION: CT ABDOMEN AND PELVIS WITHOUT CONTRAST CLINICAL INFORMATION: 70-year-old female patient scheduled for percutaneous gastrostomy tube placement tomorrow. Preprocedural evaluation. COMPARISON: CT done 03/17/2016. TECHNIQUE: Multidetector volumetric imaging was performed from the superior aspect of the liver through the pubic symphysis. Sagittal and coronal reformatted images were obtained on the technologist's workstation. DLP: 519 mGy-cm FINDINGS: Music Grapher view is unremarkable. LUNG BASES: Linear areas of subsegmental atelectasis involve the posterior aspects of both lower lobes. Extensive mitral annular calcifications are present. The hiatal hernia is less distended. LIVER, GALLBLADDER, AND BILIARY TREE: Normal and unchanged. PANCREAS: Atrophic. SPLEEN: Unremarkable. ADRENAL GLANDS: Unremarkable. KIDNEYS AND URETERS: Neither kidney shows evidence of hydronephrosis. The 1.4 similar diameter exophytic cyst is again identified in the upper pole of the right kidney. BLADDER: Air in the urinary bladder is presumably iatrogenic. GASTROINTESTINAL TRACT: Diverticulosis of the sigmoid and descending colon is again appreciated but there is no evidence of diverticulitis. The stomach is underdistended. The transverse mesocolon and transverse colon are quite low in position. Small intestine is normal. ABDOMINAL WALL: Bruising is noted in the left anterior lateral subcutaneous tissues of the abdominal wall. There is also bruising in the right flank lateral to the hip. LYMPH NODES: Normal. VASCULAR: Unremarkable. PELVIC VISCERA: No change. Patient is status post hysterectomy. OSSEOUS STRUCTURES: No change. IMPRESSION: No significant change in the appearance of the abdomen when compared to the recent CT exam of 03/17/2016. The transverse colon is safely inferior to the position of the distal body and antrum of the stomach. Hiatal hernia.
[2016-04-22 23:28] VITALS: BP 120/72
--- NOTE | 2016-04-23 07:13 | PN- Housestaff ---
LORELEI ALDRICH,URSULA 04/23/16 0713: Subjective Follow-up For: Strep pneumo meningitis Mastoiditis Otitis media Dysphagia on tube feeds Left vocal cord paralysis Tele-Events Since Last Visit: Off tele. Subjective: Patient seen and examined at bedside this AM. She is laying comfortably in bed and offers no complaints. NGT was attempted by senior resident but patient refused. WIll make attending physican aware and determine management further. Patient reports no symptoms. Review of Systems Constitutional: Reports: see HPI. Objective Last 24 Hrs of Vital Signs/I&O Vital Signs Date Time Temp Pulse Resp B/P Pulse O2 O2 Flow FiO2 Ox Delivery Rate 04/23 08 97.5 80 20 122/78 93 Room Air 04/22 2328 97.7 76 18 120/72 97 Room Air 04/22 1622 Room Air 3.0L 04/22 1530 98.0 88 20 128/78 96 Room Air Intake & Output 04/23 1600 04/23 0800 04/23 0000 Intake Total 560 480 Output Total Balance 560 480 Intake, IV 560 480 Intake, Oral 0 Number 1 1 Bowel Movements Physical Exam General Appearance: Alert, Cooperative, No Acute Distress Skin: No Rashes, No Significant Lesion HEENT: Atraumatic, Mucous Membr. moist/pink Neck: Supple, No JVD Lymphatic: Cervical nl Cardiovascular: Regular Rate, Normal S1, Normal S2 Lungs: Normal Air Movement Abdomen: Normal Bowel Sounds, Soft, No Tenderness Neurological: Normal Speech, Normal Tone Extremities: No Clubbing, No Cyanosis Vascular: Pulses Symmetrical Current Medications: Current Medications Sig/Garrick Start time Last Medication Dose Route Stop Time Status Admin Acetaminophen 1,000 MG Q6-PRN PRN 03/17 1630 AC 04/14 N/A 1 UNIT IV 1248 Albuterol Sulfate 3 ML EVERY 4 HRS/AWAKE .. 04/13 1700 AC 04/13 INH 1530 Dextrose/Sodium 1,000 ML .[id number] 04/22 1100 AC 04/23 Chloride IV 0351 Heparin Sodium 5,000 UNIT Q8 04/17 1400 DC 04/22 (Porcine) SC 04/22 Hydralazine HCl 10 MG Q8 PRN 03/23 1315 AC 04/12 IV 1805 Insulin Human Regular 0 Q6 04/08 0600 AC 04/23 SC 0540 Levetiracetam 1,500 MG Q12H 03/28 0600 AC 04/23 Sodium Chloride 100 ML IV 0540 Levothyroxine Sodium 12.5 MCG DAILY 03/19 1000 AC 04/23 IV 1030 Pantoprazole Sodium 40 MG DAILY 03/18 1000 AC 04/23 IV 1030 Patient Medication 1 ED ONE ONE 04/22 1400 DC Teaching ED 04/22 1401 Polyethylene Glycol 17 GM DAILY PRN 03/31 1215 AC 04/02 PO 0025 Valproate Sodium 1,000 MG Q8H 03/28 0200 AC 04/23 Sodium Chloride 100 ML IV 1030 Last 24 Hrs of Lab/[place] Results Last 24 Hrs of Labs/Mics: Laboratory Tests 04/23/16 0610: CBC w Diff NO MAN DIFF REQ, RBC 3.79 L, MCV 88.7, MCH 29.0, RDW 16.8 H, MPV 9.1, Gran % 48.8, Lymphocytes % 32.2, Monocytes % 17.9 H, Eosinophils % 0.5, Basophils % 0.6, Absolute Granulocytes 3.7, Absolute Lymphocytes 2.4, Absolute Monocytes 1.3 H, Absolute Eosinophils 0, Absolute Basophils 0, PUBS MCHC 32.7 L Assessment/Plan Assessment: Ms. Leslie is a 70-year-old female with past medical history of hypertension, hyperlipidemia, hypothyroidism and diabetes mellitus who presented to the emergency department after being found unresponsive at home. She was initially admitted to the ICU for management of strep pneumo meningitis, which was complicated by seizures, cardiac and respiratory arrest. Below is the current management while the patient is on the telemetry floor: 1. Strep pneumo meningitis * Patient's mentation continues to wax and wane, she is more alert today * Strep pneumo meningitis was confirmed by CSF culture and blood culture s/p tx with ceftriaxone (stopped on 03/31/2016) and vancomycin intermittently along with IV unasyn. 2x TTEs and one SAMUEL have both been negative for any valvular pathology - currently off of abx. * ID input appreciated - watching of of ABX - we will panculture if she becomes febrile once again. 2. Dysphagia * Failed prior swallow eval and could not have a PEG tube insertion secondary to desaturation during procedure * Patient again failed swallow eval yesterday and is unable to take anything by mouth * Attempt at reinsterting tube feed unable to be done as patient refused insertion * Further planning with both GI and IR to decide about PEG tube placement * Continue patient on D51/2NS at 60 cc/h for nutrition pending further planning on proper nutrition 3. Otitis media s/p BL tympanostomy tube placement * Continue to follow ENT recommendations * We are currently pending ENT reassessment for possibly right middle ear fluid drainage - off antiobiotics for now * Durbin culture if she spikes a fever or shows s/s infectious etiology/ leukocytosis 4. Seizures * Continue keppra and depakote daily * No further episodes of seizure while on the tele floor 5. Acute respiratory failure * Resolved, patient s/p intubation while in the ICU * She has been weaned off of O2 via nasal cannula and saturating well on RA * Provide supplemental O2 as needed to maintain O2 sats >92% 6. Discharge planning * Patient will require STR after discharge * Case management aware and bed search under way FULL CODE DVTP: Heparin SC NPO Mild pain pathway Problem List: 1. S/P tympanic tube insertion 2. Aspiration pneumonia 3. Dysphagia 4. Malnutrition 5. Vocal cord dysfunction 6. Hypothyroidism 7. T2DM (type 2 diabetes mellitus) 8. Anemia 9. Metabolic encephalopathy 10. Seizures 11. Respiratory failure 12. Pneumococcal meningitis Pain Ratin Pain Location: n/a Pain Goal: Remain pain free Pain Plan: Mild pain pathway Tomorrow's Labs & Rationales: None. SAMI BENTON MDDevante 04/23/16 1157: Attending MD Review Statement Attending Statement Attending MD Statement: examined this patient, discuss w/resident/PA/RE[employer]ER[employer] PLANT OPERATOR, agreed w/resident/PA/RE[employer]IGER[employer] PLANT OPERATOR, reviewed EMR data (avail), discussed with nursing, discussed with case mgmt, amended to note Attending Assessment/Plan: Patient seen and examined. Resting comfortably not in any acute distress. Alert, she does converse appropriately but is occasionally confused. She remains unable to tolerate oral feeds per evaluation by the speech and language pathologist. Interventional radiology service has been contacted for placement of a feeding tube. CT abdomen has been ordered as recommended by the IR service. We'll go with the IR service she will require moderate sedation. There is a risk of patient requiring intubation and mechanical ventilation. At present patient has no active pulmonary issues. She is maintaining saturation on room air. She is a lot unable to follow, and sputum chest x-ray shows no acute pathology. She has no underlying chronic pulmonary process. Case was discussed with admissions advisor Dr. Mikki Treviño who recommends extubation postprocedure. ENT service has been contacted for placement of a KO tube in order to administer contrast just prior to the procedure.
[2016-04-23 08:00] VITALS: BP 122/78
[2016-04-23 08:31] LABS: ABSOLUTE BASOPHIL COUNT 0 /CUMM (0.0-0.2); ABSOLUTE EOSINOPHIL COUNT 0 /CUMM (0.0-0.7); ABSOLUTE GRANULOCYTE CT 3.7 /CUMM (1.4-6.5); ABSOLUTE LYMPH COUNT 2.4 /CUMM (1.2-3.4); ABSOLUTE MONOCYTE COUNT 1.3 /CUMM (0.10-0.60); BASOPHIL % 0.6 % (0.0-2.0); EOSINOPHIL % 0.5 % (0-5); GRANULOCYTE % 48.8 % (42.2-75.2); HEMATOCRIT 33.6 % (37-47); MEAN CORPUSCULAR HGB CONC 32.7 G/DL (33.0-37.0); MEAN CORPUSCULAR VOLUME 88.7 FL (81.0-99.0); MEAN PLATELET VOLUME 9.1 FL (7.4-10.4); PLATELET COUNT 142 /CUMM (130-400); RBC DISTRIBUTION WIDTH 16.8 % (11.5-14.5); RED BLOOD CELL CT 3.79 /CUMM (4.20-5.40); WHITE BLOOD CELL COUNT 7.5 /CUMM (4.8-10.8)
--- NOTE | 2016-04-23 14:52 | RADIOLOGY REPORT ---
EXAMINATION: XR PORTABLE CHEST CLINICAL INFORMATION: Orogastric tube placement COMPARISON: Chest x-ray 04/22/2016 TECHNIQUE: Portable AP view of the chest was obtained. 2:20 PM FINDINGS: Right-sided PICC line catheter in superior vena cava. Orogastric tube place with catheter tip in stomach. Exam was performed with overpenetration to visualize the oral gastric tube in the stomach. Lung detail limited. No gross infiltrate or pulmonary vascular congestion. Cardiac and mediastinal contours are normal. IMPRESSION: Orogastric tube in stomach.
[2016-04-23 15:18] VITALS: BP 144/84
[2016-04-23 22:00] VITALS: BP 120/80
--- NOTE | 2016-04-24 04:00 | RADIOLOGY REPORT ---
EXAMINATION: XR PORTABLE CHEST CLINICAL INFORMATION: Confirm orogastric tube placement. COMPARISON: Chest x-ray performed on 04/23/2016. TECHNIQUE: Portable AP view of the chest was obtained. FINDINGS: Orogastric tube courses below the diaphragm with its tip and side-port located within the stomach. The right PICC line tip terminates in stable position within the SVC. Symmetric lung inflation. Linear atelectasis at the left lung base. No focal consolidation, pleural effusion, or pneumothorax. Cardiac silhouette size is normal. Osseous structures are stable. IMPRESSION: The orogastric tube tip and side-port are located within the stomach. There is linear atelectasis at the left lung base
--- NOTE | 2016-04-24 06:48 | PN- Housestaff ---
See Addendum Subjective Follow-up For: Strep pneumo meningitis Mastoiditis Otitis media Dysphagia on tube feeds Left vocal cord paralysis Tele-Events Since Last Visit: Off tele. Subjective: Patient seen and examined at bedside this AM. She remains lethargic though offers no complaints. She has OGT through which oral contrast was given last night in preparation for PEG tube placement with IR/Anesthesia later today. Review of Systems Constitutional: Denies: chills, fever. EENTM: Denies: nasal congestion. Cardiovascular: Denies: chest pain, palpitations. Respiratory: Denies: short of breath. Gastrointestinal: Denies: abdominal pain. Genitourinary: Denies: hematuria. Musculoskeletal: Denies: back pain. Skin: Denies: rash. Objective Last 24 Hrs of Vital Signs/I&O Vital Signs Date Time Temp Pulse Resp B/P Pulse O2 O2 Flow FiO2 Ox Delivery Rate 04/24 0744 97.4 78 18 132/80 91 Room Air 04/23 1518 96.5 85 18 144/84 94 Room Air Intake & Output 04/24 1600 04/24 0800 04/24 0000 Intake Total 240 Output Total Balance 240 Intake, IV 240 Physical Exam General Appearance: Cooperative, No Acute Distress Skin: No Rashes, No Significant Lesion HEENT: Atraumatic, Mucous Membr. moist/pink Neck: Supple, +2 Carotid Pulse wo Bruit Lymphatic: Cervical nl Cardiovascular: Regular Rate, Normal S1, Normal S2, +HERIBERTO Lungs: Normal Air Movement, Intermittent added sounds, right chest Abdomen: Normal Bowel Sounds, Soft, No Tenderness Neurological: Normal Tone Extremities: No Clubbing, No Cyanosis, No Edema Current Medications: Current Medications Sig/Garrick Start time Last Medication Dose Route Stop Time Status Admin Acetaminophen 1,000 MG Q6-PRN PRN 03/17 1630 AC 04/14 N/A 1 UNIT IV 1248 Albuterol Sulfate 3 ML EVERY 4 HRS/AWAKE .. 04/13 1700 AC 04/13 INH 1530 Dextrose/Sodium 1,000 ML .[id number] 04/22 1100 AC 04/24 Chloride IV 0100 Hydralazine HCl 10 MG Q8 PRN 03/23 1315 AC 04/12 IV 1805 Insulin Human Regular 0 Q6 04/08 0600 AC 04/24 SC 0652 Levetiracetam 1,500 MG Q12H 03/28 0600 AC 04/24 Sodium Chloride 100 ML IV 0600 Levothyroxine Sodium 12.5 MCG DAILY 03/19 1000 AC 04/23 IV 1030 Pantoprazole Sodium 40 MG DAILY 03/18 1000 AC 04/23 IV 1030 Polyethylene Glycol 17 GM DAILY PRN 03/31 1215 AC 04/02 PO 0025 Valproate Sodium 1,000 MG Q8H 03/28 0200 AC 04/24 Sodium Chloride 100 ML IV 0200 Orders Radiology Findings: CXR 04/23: IMPRESSION: The orogastric tube tip and side-port are located within the stomach. There is linear atelectasis at the left lung base Assessment/Plan Assessment: Ms. Leslie is a 70-year-old female with past medical history of hypertension, hyperlipidemia, hypothyroidism and diabetes mellitus who presented to the emergency department after being found unresponsive at home. She was initially admitted to the ICU for management of strep pneumo meningitis, which was complicated by seizures, cardiac and respiratory arrest. Below is the current management while the patient is on the telemetry floor: 1. Strep pneumo meningitis * Patient's mentation continues to wax and wane, she is more alert today * Strep pneumo meningitis was confirmed by CSF culture and blood culture s/p tx with ceftriaxone (stopped on 03/31/2016) and vancomycin intermittently along with IV unasyn. 2x TTEs and one SAMUEL have both been negative for any valvular pathology - currently off of abx. * ID input appreciated - watching of of ABX - we will panculture if she becomes febrile once again. 2. Dysphagia * Failed prior swallow eval and could not have a PEG tube insertion secondary to desaturation during procedure * Patient is s/p placement of orogastric feeding tube and received oral contrast last night in preparation for PEG tube placement today with IR/ Anesthesia * F/U post op instructions and initiate feeding once cleared * Continue patient on D51/2NS at 60 cc/h for nutrition for now as she is NPO 3. Otitis media s/p BL tympanostomy tube placement * Continue to follow ENT recommendations * We are currently pending ENT reassessment for possibly right middle ear fluid drainage - off antiobiotics for now * Durbin culture if she spikes a fever or shows s/s infectious etiology/ leukocytosis 4. Seizures * Continue keppra and depakote daily * No further episodes of seizure while on the tele floor 5. Acute respiratory failure * Resolved, patient s/p intubation while in the ICU * She has been weaned off of O2 via nasal cannula and saturating well on RA * Provide supplemental O2 as needed to maintain O2 sats >92% 6. Discharge planning * Patient will require STR, likely will be discharged within the next few days if PEG procedure goes as planned * Case management aware and bed search under way 7. Bilateral eye crusting * Nursing notified to moisten and clean bilateral eye crusting every shift * No s/s conjunctivitis (no hyperema or erythema of conjunctiva), will continue to monitor FULL CODE DVTP: Heparin SC NPO Mild pain pathway Problem List: 1. S/P tympanic tube insertion 2. Aspiration pneumonia 3. Dysphagia 4. Malnutrition 5. Vocal cord dysfunction 6. Hypothyroidism 7. T2DM (type 2 diabetes mellitus) 8. Anemia 9. Metabolic encephalopathy 10. Seizures 11. Respiratory failure 12. Pneumococcal meningitis Pain Ratin Pain Location: n/a Pain Goal: Remain pain free Pain Plan: IV tylenol. Tomorrow's Labs & Rationales: CBC after PEG tube insertion, BEP (monintor electrolytes after 2 days of NPO status).
[2016-04-24 07:44] VITALS: BP 132/80
--- NOTE | 2016-04-24 13:44 | ULTRASOUND REPORT ---
CLINICAL HISTORY: This patient is a 70 ukaml-ymcy-wro Female with poor nutrition and failed speech and swallow test, who presents to interventional radiology for placement of a gastrostomy tube. PROCEDURES: 1. Gastric wall puncture and gastric opacification under fluoroscopy-guidance. 2. Placement of a 18 Fr gastrostomy tube. 3. Postprocedure tube sinogram. 4. Limited LUQ abdominal ultrasound. PHYSICIANS: Yunior Bautista MD Vascular Interventional Radiologist SEDATION: The procedure was performed with MAC, as per the [facility] anesthesiology department. COMPLICATIONS: None. ESTIMATED BLOOD LOSS: <5 mL SPECIMENS: None. CONTRAST: 20 mL Optiray FLUOROSCOPY TIME: 164 seconds PROCEDURE NOTE: Informed consent was obtained from the patient's prior to the procedure. During this process, the procedure and potential alternatives were explained along with the intended outcome and benefits. The risks of the procedure, including the possibility of an unsuccessful procedure, as well as the risk of not doing the procedure, were discussed. The patient's was given the opportunity to ask questions regarding the procedure and appeared competent to make decisions. A signed consent form documenting this discussion was placed in the medical record. A time-out procedure was performed. The patient was placed supine on the fluoroscopy table. Using real-time ultrasound-guidance, the left liver edge was localized before the patient was prepped. The abdomen was prepped and draped in usual sterile fashion. The region of the stomach was marked under fluoroscopy. Air was then insufflated into the stomach from the nasogastric tube while observing gastric distention under intermittent fluoroscopy. Once the stomach was of adequate distension, a safe approach was determined and marked. Lidocaine local anesthetic was administered. Using oblique lateral view, a T tack needle was advanced to the anterior stomach wall, which was tented and then traversed. Injection of a small amount of contrast demonstrated the needle tip to be within stomach lumen. A wire pusher advanced the T tack. The needle was removed and the T tack was secured. A total of 3 T tacks were placed and secured. The site at the middle of the T tacks was chosen to place the gastrostomy tube. A needle was advanced and access to the stomach was confirmed under fluoroscopic-guidance. A 0.035 in Amplatz super stiff wire was advanced with ease into the stomach. The tract was then dilated using a series of dilators and a peel-away sheath was placed. The dilator and wire were removed. A 18 Fr gastrostomy tube was advanced with ease through the peel-away sheath, and the peel-away sheath was removed. The balloon was inflated with 7 mL sterile water with a small volume of contrast and the collar was advanced to the skin. Contrast injection confirmed position within the stomach lumen. The fixation collar was secured with a zip band. FINDINGS: 1. Liver edge identified and marked. 2. Patent stomach with favorable anatomy for percutaneous placement of gastrostomy tube. 3. Successful placement of a 18 Fr gastrostomy tube. IMPRESSION: Successful placement of a gastrostomy tube. PLAN: 1. The patient was stable after the procedure and was transferred to the interventional recovery area. 2. The gastrostomy tube should NOT be accessed for 48 hours. At that point, a 100 mL water bolus may be given through the tube. If the patient tolerates this bolus, then tube feedings may commence. 3. The balloon port should never be accessed. 4. The T tacks securing suture will dissolve in 2-3 weeks, and the T tack buttons will fall off on their own.
[2016-04-24 16:09] VITALS: BP 140/82
--- NOTE | 2016-04-24 17:51 | Discharge Summary ---
Visit Information Visit Dates Admission Date: 03/17/16 Discharge Date: 04/30/16 Hospital Course Course Attending Physician: Dr. Bruce Primary Care Physician: EILEEN MONK MD Consulting Request: 1 Consulting Specialty: Cardiology Consulting Request: 2 Consulting Specialty: Otorhinolaryngology Consulting Request: 3 Consulting Specialty: Gastroenterology Consulting Request: 4 Consulting Specialty: Infectious Disease Consulting Request: 5 Consulting Specialty: Neurology Consulting Request: 6 Consulting Specialty: Pulmonary Disease Hospital Course: This is a 70-year-old lady with past medical history significant for hypertension, hyperlipidemia, hypothyroidism, diabetes mellitus who was brought to the hospital after being found unresponsiveon 03/17/2016. In ED was found to have Tmax 102, AMS/agitation, CT with pneumocephalus in temporal lobe, and opacification of mastoid air cells. Due to concern for bacterial meningitis 2/2 otitis she was admitted to ICU for strep pneumo meningitis. She has had prolonged ICU stay. Of note, during fluoro-guided LP by IR patient had an episode of emesis and likely aspirated. CXR showed corresponding suspicious opacity. She subsequently desaturated into the 60s and required BiPAP. Subsequently on March 25 patient had episode of hypertension with BP over 200 systolic, and was saturating in the low 60s despite BiPAP. She was intubated; procedure was complicated by cardiopulmonary arrest. Patient was successfully resuscitated. Remained off all pressors and hemodynamically stable. Her ICU course has been complicated by: Aspiration pneumonia, periodic hypotension, new-onset seizures, and increasing mastoid opacification treated by bilateral ear tubes. She was downgraded to telemetry floor. Following problems were addressed while she was on telemetry floor: #Strep pneumo meningitis: Patient's mentation continues to wax and wane, but improved. Strep pneumo meningitis was confirmed by CSF culture and blood culture s/p tx with ceftriaxone (stopped on 03/31/2016) and vancomycin intermittently along with IV unasyn. 2x TTEs and one SAMUEL have both been negative for any valvular pathology. ID input appreciated. Patient is being monitored off antibiotics at this point. She will need panculture if she becomes febrile once again. #Dysphagia: Failed prior swallow eval and could not have a PEG tube insertion secondary to desaturation during procedure by GI on 04/17/2016. She was maintained on [place] tube feeding with the hope that her status improves so that we can avoid PEG tube insertion. She failed repeat swallow evaluation on 04/22/2016. Patient is status post PEG tube insertion on 04/24/2016 with IR/anesthesia. Per IR, it is okay to use PEG tube after 24 hours. ....... #Otitis media s/p BL tympanostomy tube placement: The patient got bilateral ear tube placement on 04/13/2016 to address the bilateral mastoid opacification seen on CT. Initially, patient had opacification on the left mastoid, repeat CT about a week later showed opacification extending to the right. Initially there was concern for continued strep pneumo infection. However, the fluid cultures are negative for any suspicious organism, just growing coag negative staph which is likely contaminant. Repeat CT-head with IV contrast on 04/03 showed no change. On speaking with neuroradiologist there seems to be possibility of a communicating hydrocephalus and she does have some meningeal inflammation. She was maintained on Unasyn 3 q6 per ID, and also received IV vancomycin with a goal trough of 15- 20. * We are currently pending ENT reassessment for possibly right middle ear fluid drainage - off antiobiotics for now * Durbin culture if she spikes a fever or shows s/s infectious etiology/ leukocytosis #Seizures-new onset:Started early a.m. on 03/24/2016. Since then she has had a repeat seizure activity, at least 2 episodes of GTC. The rest seem to be focal, localized to her right arm. EEG showed corresponding epileptiform activity in left hemisphere. The patient was maintained on Keppra and Depakote IV at increased doses. Second EEG negative * No further episodes of seizure while on the tele floor #Acute respiratory failure-resolved: The patient was intubated on 03/25/2016 because she had long periods of apnea on her blood pressure went up to 200 systolic. While she was being intubated patient went into cardiopulmonary arrest. One round of CPR was done. Patient was extubated on 04/10/16. While on telemetry floor she was weaned off of O2 via nasal cannula and saturating well on RA * Provide supplemental O2 as needed to maintain O2 sats >92% #Bilateral eye crusting: No s/s conjunctivitis (no hyperema or erythema of conjunctiva). Nursing staff continued to moisten and clean bilateral eye crusting every shift. #DVT prophylaxis: Subcutaneous heparin #CODE STATUS Full code Addendum by Dr. Flynn on 04/25/16 at 1.38 PM PEG tube flushes was initiated with water flushes and tube feeds started. She tolerated TF well. IV medications were changed to PO. She will need prison placement with dedicated PT/OT as her recovery is unclear. Patients mentation was improving but she was more emotionally labile and hence was seen by Psychiatry. Had an EEG on 04/28/16 which showed Abnormal EEG to mild background slowing with more pronounced slowing in the left frontal region and hence the decision was made to continue her antiseizure medications. She was revisited by Dr. Dailey for [place] in the left year and to assess the tubes in the ear. Patient had Myringotomy and tube placement, right ear Microscopic Exam with cerumen removal, left ear on Surgery Date: 04/30/16 Allergies: Coded Allergies: Sulfa (Sulfonamide Antibiotics) (Intermediate, TURNS RED 03/17/16) Significant Procedures: Surgery Date: 04/30/16 Name of Procedure: Myringotomy and tube placement, right ear Microscopic Exam with cerumen removal, left ear Pertinent Lab Results: Laboratory Tests 04/30 04/29 04/28 0628 0508 1412 Chemistry Sodium (137 - 145 mmol/L) 135 L 138 Potassium (3.5 - 5.1 mmol/L) 4.8 4.4 Chloride (98 - 107 mmol/L) 96 L 97 L Carbon Dioxide (22 - 30 mmol/L) 33 H 33 H Anion Gap (5 - 16) 6 7 BUN (7 - 17 mg/dL) 16 12 Creatinine (0.5 - 1.0 mg/dL) 0.5 0.5 Estimated GFR (>60 ml/min) > 60 > 60 BUN/Creatinine Ratio (7 - 25 %) 32.0 H 24.0 Magnesium (1.6 - 2.3 mg/dL) 1.7 Ammonia (9 - 30 umol/L) 17 Toxicology Valproic Acid Cancelled 04/28 0535 Chemistry Magnesium (1.6 - 2.3 mg/dL) 1.7 Hematology CBC w Diff NO MAN DIFF REQ WBC (4.8 - 10.8 /CUMM) 7.1 RBC (4.20 - 5.40 /CUMM) 3.56 L Hgb (12.0 - 16.0 G/DL) 10.5 L Hct (37 - 47 %) 31.6 L MCV (81.0 - 99.0 FL) 88.6 MCH (27.0 - 31.0 PG) 29.5 RDW (11.5 - 14.5 %) 17.7 H Plt Count (130 - 400 /CUMM) 86 L MPV (7.4 - 10.4 FL) 9.0 Gran % (42.2 - 75.2 %) 51.1 Lymphocytes % (20.5 - 51.1 %) 29.6 Monocytes % (1.7 - 9.3 %) 18.0 H Eosinophils % (0 - 5 %) 0.8 Basophils % (0.0 - 2.0 %) 0.5 Absolute Granulocytes (1.4 - 6.5 /CUMM) 3.6 Absolute Lymphocytes (1.2 - 3.4 /CUMM) 2.1 Absolute Monocytes (0.10 - 0.60 /CUMM) 1.3 H Absolute Eosinophils (0.0 - 0.7 /CUMM) 0.1 Absolute Basophils (0.0 - 0.2 /CUMM) 0 PUBS MCHC (33.0 - 37.0 G/DL) 33.3 Toxicology Valproic Acid (50 - 120 ug/mL) 97.2 Disposition Summary Disposition Principal Diagnosis: Bacterial meningitis Dysphagia Otitis media s/p BL tympanostomy tube placement Seizures-new onset Acute respiratory failure requiring intubation resolved now Additional Diagnosis: Hypothyroidism DM HLD Discharge Disposition: SNF Discharge Instructions General Discharge Information Code Status: Full Code Patient's Diet: Glucerna 1.2 via peg tube, goal 60 cc/h Patient's Activity: As tolerated. Follow-Up Instructions/Appts: Please follow up with your PCP within 1 week of discharge. PLease follow up with Dr. Felix, cardiology, within 7 days of discharge. Please follow up with Dr. Sánchez, ENT, within 7 days of discharge. Please follow up with neurology within 2 weeks for continued management of your seizures. Medications at Discharge Discharge Medications: Stop taking the following medications: Metformin HCl (Metformin HCl) 1,000 MG TABLET ORAL TWICE DAILY Qty = 180 Aspirin (Ecotrin*) 81 MG TABLET. ORAL DAILY Losartan Potassium (Losartan Potassium) 100 MG TABLET G TUBE DAILY Qty = 90 Continue taking these medications: Levothyroxine Sodium (Levothyroxine Sodium) 25 MCG TABLET 1 Tablet G TUBE DAILY BEFORE BREAKFAST Qty = 90 Comments: Last Taken: 04/30/16 Time: 6:27 AM Insulin NPL/Insulin Lispro (Humalog Mix 75-25 Kwikpen) 100 UNIT/ML (75-25) INSULN.PEN Qty = 15 Comments: NOVOLOG GIVEN IN HOSPITAL, LAST DOSE 04/30/16 1151 2 UNITS Atorvastatin Calcium (Atorvastatin Calcium) 10 MG TABLET 1 Tablet G TUBE DAILY Qty = 90 Comments: NOT GIVEN IN HOSPITAL Start taking the following new medications: Albuterol Sulfate (Albuterol Sulfate) 2.5 MG/3 ML (0.083 %) VIAL.NEB 3 Milliliters Inhale through mouth EVERY 4 HRS WHILE AWAKE as needed for WHEEZING Qty = 1 No Refills Polyethylene Glycol 3350 (Miralax) 17 GRAM/DOSE POWDER 17 Gram G TUBE DAILY as needed for CONSTIPATION Qty = 1 No Refills Losartan Potassium (Losartan Potassium) 50 MG TABLET 1 Tablet ORAL DAILY Qty = 30 No Refills Comments: NOT GIVEN IN HOSPITAL Omeprazole (Omeprazole) 40 MG CAPSULE.DR 1 Capsule G TUBE DAILY Qty = 30 No Refills Comments: Last Taken: 04/29/16 Time: 6AM Levetiracetam (Keppra) 100 MG/ML SOLUTION 1,500 Milligram G TUBE TWICE DAILY Qty = 1 No Refills Comments: Last Taken: 04/30/16 Time: 9AM Valproic Acid (As Sodium Salt) (Valproic Acid) 250 MG/5 ML SOLUTION 1,000 Milligram G TUBE EVERY 8 HOURS Qty = 1 No Refills Comments: Last Taken: 04/30/16 Time: 2PM Copies To: ALESHIA ALDRICH,EILEEN Tatum
[2016-04-24] MEDS ORDERED: ALBUTEROL2.5 MG/3 M INH (18:58)
[2016-04-24] MEDS ORDERED: OMEPRAZOLE40 M1 G TUBE (19:00)
[2016-04-24] MEDS ORDERED: KEPPRA100 MG/1 M G TUBE (19:04)
[2016-04-24] MEDS ORDERED: MIRALAX119 GM G TUBE (19:05)
[2016-04-24] MEDS ORDERED: VALPROIC A250 MG/51 G TUBE (19:05)
[2016-04-24 19:06] VITALS: BP 156/90
--- NOTE | 2016-04-24 19:10 | Patient Discharge Instructions ---
Discharge Instructions General Discharge Information You were seen/treated for: Strep Pneumo meningitis Seizures Dysphagia Otitis media Encephalitis PEG Tube placement You had these procedures: PEG Tube Placement Special Instructions: Please follow up with your PCP within 1 week of discharge. PLease follow up with Dr. Felix, cardiology, within 7 days of discharge. Please follow up with Dr. Sánchez, ENT, within 7 days of discharge. Please follow up with neurology within 2 weeks for continued management of your seizures. Diet Recommended Diet: Glucerna 1.2 via peg tube, goal 60 cc/h Activity Activity Self Limited: Yes Acute Coronary Syndrome Inclusion Criteria At DC or during hospital stay patient has or had the following: ACS DIAGNOSIS No Discharge Core Measures Meds if any: Prescribed or Continued at Discharge Meds if any: NOT Prescribed or Continued at Discharge Congestive Heart Failure Inclusion Criteria At DC or during hospital stay patient has or had the following: CHF DIAGNOSIS No Discharge Core Measures Meds if any: Prescribed or Continued at Discharge Meds if any: NOT Prescribed or Continued at Discharge Cerebrovascular accident Inclusion Criteria At DC or during hospital stay patient has or had the following: CVA/TIA Diagnosis No Discharge Core Measures Meds if any: Prescribed or Continued at Discharge Meds if any: NOT Prescribed or Continued at Discharge Venous thromboembolism Inclusion Criteria VTE Diagnosis No VTE Type NONE VTE Confirmed by (Test) NONE Discharge Core Measures - Per Current guidelines, there needs to be overlap - treatment for the first 5 days of Warfarin therapy. - If discharged on Warfarin prior to 5 days of - overlap therapy, the patient will need to be - assessed for post discharge needs including - *Post discharge parental anticoagulation - *Warfarin and/or parental anticoagulation education - *Follow up date to check INR post discharge At least 5 days overlap therapy as Inpatient No Meds if any: Prescribed or Continued at Discharge Note: Overlap Therapy is Warfarin and Anticoagulant Meds if any: NOT Prescribed or Continued at Discharge
--- NOTE | 2016-04-24 19:54 | NUR ---
Referral received yesterday from case folder. This patient has been hospitalized since the end of February. She has had a complicated medical course including an extended stay in ICU on ventilator. She has been transfeerd from telemetry to general medicine after having a PEG inserted. I met with the patients and son (from a first marriage) today to discuss the application process for T-19 and reviewed required documentation for submission. verbalized understanding and has agreed to work with patients son to get whats needed. Follow.
[2016-04-24 23:29] VITALS: BP 130/80
[2016-04-25 07:38] VITALS: BP 148/88
[2016-04-25 08:13] LABS: ABSOLUTE BASOPHIL COUNT 0 /CUMM (0.0-0.2); ABSOLUTE EOSINOPHIL COUNT 0 /CUMM (0.0-0.7); ABSOLUTE GRANULOCYTE CT 6.6 /CUMM (1.4-6.5); ABSOLUTE LYMPH COUNT 1.6 /CUMM (1.2-3.4); BASOPHIL % 0.3 % (0.0-2.0); EOSINOPHIL % 0.1 % (0-5); GRANULOCYTE % 64.7 % (42.2-75.2); HEMATOCRIT 34.7 % (37-47); MEAN CORPUSCULAR HGB 29.3 PG (27.0-31.0); MEAN CORPUSCULAR HGB CONC 33.3 G/DL (33.0-37.0); MEAN CORPUSCULAR VOLUME 87.9 FL (81.0-99.0); MEAN PLATELET VOLUME 8.8 FL (7.4-10.4); PLATELET COUNT 125 /CUMM (130-400); RED BLOOD CELL CT 3.95 /CUMM (4.20-5.40); WHITE BLOOD CELL COUNT 10.3 /CUMM (4.8-10.8)
--- NOTE | 2016-04-25 09:08 | PN- Housestaff ---
RUBEN ALDRICH,[facility] 04/25/16 0908: Subjective Follow-up For: Dysphagia on tube feeds Left vocal cord paralysis Strep pneumo meningitis Mastoiditis Otitis media Subjective: Ms Leslie was seen and examined this morning. Initially she was lethargic and minimally responsive. She was however able to respond to verbal stimulation and had a hard time following commands. The patient was unable to articulate any complaints. During the second encounter with Ms. Leslie at which point her son and were at the bedside, the patient seemed to be sad and crying and kept on inquiring whether she was able to go on her cruise as per plan. The patient was unable to elicit any complaints. Review of Systems Constitutional: Reports: see HPI. Objective Last 24 Hrs of Vital Signs/I&O Vital Signs Date Time Temp Pulse Resp B/P Pulse O2 O2 Flow FiO2 Ox Delivery Rate 04/25 1411 98.2 96 20 122/70 93 04/25 0800 Room Air 04/25 0738 98.9 93 20 148/88 96 Room Air 04/24 2329 98.6 87 20 130/80 93 Room Air 04/24 1906 98.7 92 20 156/90 92 Room Air Intake & Output 04/25 1600 04/25 0800 04/25 0000 Intake Total 600 500 420 Output Total Balance 600 500 420 Intake, IV 500 500 420 Intake, Tube 100 Irrigant Number 0 Bowel Movements Physical Exam General Appearance: Cooperative, Mild Distress Cardiovascular: Regular Rate, Normal S1, Normal S2, ?Systolic Murmur Lungs: Clear to Auscultation Abdomen: Normal Bowel Sounds, Soft, No Tenderness, Peg Tube and Binders in Place Extremities: No Clubbing, No Cyanosis, No Edema Current Medications: Current Medications Sig/Garrick Start time Last Medication Dose Route Stop Time Status Admin Acetaminophen 1,000 MG Q6-PRN PRN 03/17 1630 AC 04/14 N/A 1 UNIT IV 1248 Albuterol Sulfate 3 ML EVERY 4 HRS/AWAKE .. 04/13 1700 AC 04/13 INH 1530 Dextrose/Sodium 1,000 ML .[id number] 04/22 1100 AC 04/25 Chloride IV 0455 Heparin Sodium 5,000 UNIT Q8 04/25 1550 AC (Porcine) SC Hydralazine HCl 10 MG Q8 PRN 03/23 1315 AC 04/12 IV 1805 Insulin Human Regular 0 Q6 04/08 0600 AC 04/25 SC 1210 Levetiracetam 1,500 MG Q12H 03/28 0600 AC 04/25 Sodium Chloride 100 ML IV 0534 Levothyroxine Sodium 12.5 MCG DAILY 03/19 1000 AC 04/25 IV 1210 Pantoprazole Sodium 40 MG DAILY 03/18 1000 AC 04/25 IV 1014 Patient Medication 1 ED .STK-MED ONE 04/25 1407 IN Teaching ED 04/25 1408 Polyethylene Glycol 17 GM DAILY PRN 03/31 1215 AC 04/02 PO 0025 Valproate Sodium 1,000 MG Q8H 03/28 0200 AC 04/25 Sodium Chloride 100 ML IV 1210 Last 24 Hrs of Lab/[place] Results Last 24 Hrs of Labs/Mics: Laboratory Tests 04/25/16 0736: Anion Gap 8, Estimated GFR > 60, BUN/Creatinine Ratio 17.5, Magnesium 1.6, CBC w Diff NO MAN DIFF REQ, RBC 3.95 L, MCV 87.9, MCH 29.3, RDW 17.0 H, MPV 8.8, Gran % 64.7, Lymphocytes % 15.3 L, Monocytes % 19.6 H, Eosinophils % 0.1, Basophils % 0.3, Absolute Granulocytes 6.6 H, Absolute Lymphocytes 1.6, Absolute Monocytes 2.0 H, Absolute Eosinophils 0, Absolute Basophils 0, PUBS MCHC 33.3 Assessment/Plan Assessment: Ms. Leslei is a 70-year-old female with past medical history of hypertension, hyperlipidemia, hypothyroidism and diabetes mellitus who presented to the emergency department after being found unresponsive at home. She was initially admitted to the ICU for management of strep pneumo meningitis, which was complicated by seizures, cardiac and respiratory arrest. Below is the current management while the patient is on the telemetry floor: #Strep pneumo meningitis Mentation seems to be fluctuating we'll continue to monitor and see how the patient responds to feeds from PEG tube. Strep pneumo meningitis was confirmed by CSF culture and blood culture s/p tx with ceftriaxone (stopped on 03/31/2016) and vancomycin intermittently along with IV unasyn. 2x TTEs and one SAMUEL have both been negative for any valvular pathology - currently off of abx. ID input appreciated - watching of of ABX - we will panculture if she becomes febrile once again. #Dysphagia Failed prior swallow eval and could not have a PEG tube insertion secondary to desaturation during procedure Patient is s/p placement of orogastric feeding tube and received oral contrast last night in preparation for PEG tube placement on 04/24/2016 with IR/Anesthesia 04/25/2016 owing to successful insertion of PEG tube on 04/24/2016, at 12:30 PM a water flush had been ordered. An hour later the nurse monitored to see any levels of residuals which were nil. The patient was then started on tube feeds as per recommendations from nutrition. Order had been NPO to NovoLog sliding scale. We'll continue to monitor. Continue patient on D51/2NS at 60 cc/h for nutrition. Consider discontinuing fluids on 04/26/2016 if tube feeds are up to goal rate and patient tolerating Tube feeds well. #Otitis media s/p BL tympanostomy tube placement Continue to follow ENT recommendations We are currently pending ENT reassessment for possibly right middle ear fluid drainage - off antiobiotics for now Durbin culture if she spikes a fever or shows s/s infectious etiology/leukocytosis #Seizures Continue keppra and depakote daily, we intend to transition the patient to oral medications on 04/26/2016. No further episodes of seizure while while on general medicine floor #Acute respiratory failure Resolved, patient s/p intubation while in the ICU She has been weaned off of O2 via nasal cannula and saturating well on RA Provide supplemental O2 as needed to maintain O2 sats >92% #Discharge planning Patient will require STR, likely will be discharged within the next few days if PEG procedure goes as planned Case management aware and bed search under way #Bilateral eye crusting Nursing notified to moisten and clean bilateral eye crusting every shift No s/s conjunctivitis (no hyperema or erythema of conjunctiva), will continue to monitor FULL CODE DVTP: Heparin SC Problem List: 1. S/P tympanic tube insertion 2. Dysphagia 3. Malnutrition 4. Vocal cord dysfunction 5. Hypothyroidism 6. T2DM (type 2 diabetes mellitus) 7. Anemia 8. Metabolic encephalopathy Pain Ratin Pain Location: No Pain Reported Pain Goal: Remain pain free Pain Plan: Tylenol PRN Tomorrow's Labs & Rationales: BEP and Magnesium: Monitor electrolytes in the setting of recent refeeding on tube feedings. DVT/Prophylaxis: pharmacological Consulting Request: Consulting Specialty: Pulmonary Disease ISIAH ALDRICH,JENNIFER 04/25/16 1246: Attending MD Review Statement Attending Statement Attending MD Statement: examined this patient, discuss w/resident/PA/FOUR SLIDE MACHINE OPERATOR, agreed w/resident/PA/FOUR SLIDE MACHINE OPERATOR, discussed with family, reviewed EMR data (avail), discussed with nursing, discussed with case mgmt, reviewed images, amended to note Attending Assessment/Plan: Patient seen and examined, very confused. She was crying. She was transferred from [facility], had a prolonged complicated hospital course. Currently did not c/o anything, had a Peg tube placed yesterday. Will give water bolus today and if tolerates, will start low rate Tfs today. Vital Signs Date Time Temp Pulse Resp B/P Pulse O2 O2 Flow FiO2 Ox Delivery Rate 04/25 0800 Room Air 04/25 0738 98.9 93 20 148/88 96 Room Air 04/24 2329 98.6 87 20 130/80 93 Room Air 04/24 1906 98.7 92 20 156/90 92 Room Air 04/24 1609 98.5 98 18 140/82 93 Room Air on exam; awake, confused, crting. Family at bedside. cv; s1, s2, rrr. resp; clear with decreased bs at bases. abd; soft, nt, + peg in place. ext; no edema. Laboratory Tests 04/25 0736 Chemistry Sodium (137 - 145 mmol/L) 138 Potassium (3.5 - 5.1 mmol/L) 3.8 Chloride (98 - 107 mmol/L) 101 Carbon Dioxide (22 - 30 mmol/L) 29 Anion Gap (5 - 16) 8 BUN (7 - 17 mg/dL) 7 Creatinine (0.5 - 1.0 mg/dL) 0.4 L Estimated GFR (>60 ml/min) > 60 BUN/Creatinine Ratio (7 - 25 %) 17.5 Magnesium (1.6 - 2.3 mg/dL) 1.6 Hematology CBC w Diff NO MAN DIFF REQ WBC (4.8 - 10.8 /CUMM) 10.3 RBC (4.20 - 5.40 /CUMM) 3.95 L Hgb (12.0 - 16.0 G/DL) 11.6 L Hct (37 - 47 %) 34.7 L MCV (81.0 - 99.0 FL) 87.9 MCH (27.0 - 31.0 PG) 29.3 RDW (11.5 - 14.5 %) 17.0 H Plt Count (130 - 400 /CUMM) 125 L MPV (7.4 - 10.4 FL) 8.8 Gran % (42.2 - 75.2 %) 64.7 Lymphocytes % (20.5 - 51.1 %) 15.3 L Monocytes % (1.7 - 9.3 %) 19.6 H Eosinophils % (0 - 5 %) 0.1 Basophils % (0.0 - 2.0 %) 0.3 Absolute Granulocytes (1.4 - 6.5 /CUMM) 6.6 H Absolute Lymphocytes (1.2 - 3.4 /CUMM) 1.6 Absolute Monocytes (0.10 - 0.60 /CUMM) 2.0 H Absolute Eosinophils (0.0 - 0.7 /CUMM) 0 Absolute Basophils (0.0 - 0.2 /CUMM) 0 PUBS MCHC (33.0 - 37.0 G/DL) 33.3 A/P; Ms. Leslie is a 70-year-old female with past medical history of hypertension, hyperlipidemia, hypothyroidism and diabetes mellitus who was initially admitted to the ICU for management of strep pneumo meningitis, mastoiditis treated with abx. Course was complicated by seizures, cardiac and respiratory arrest. Stabilized and transferred to [facility] for rehabilitation. Has devloped Dysphgia and finally got PEG tube placed yesterday. She is delirious. Will give her the water boluses through the PEG tube today. If she tolerates. The tube feeds at a low rate. 2 pins will be advanced as she tolerates. Once she is able to tolerate the 2 plates, will switch all of her medications to be even via PEG. Patient still remains delirious. We will DC her restraints. We will try to Robin and her as much as possible. Patient should work with physical therapy. DVT px; Should be on hep sq for DVt px. D/W family at bedside.
--- NOTE | 2016-04-25 11:11 | Event Note ---
Event Note Event Note: Yesterday afternoon, discussed with IR physician Dr. Shree Guerrero MD who confirmed that the PEG tube may be used within 24 hours (not before). To use, start with water flushes as documented in his note and if patient tolerates, you may proceed with tube feeds as indicated by vacuum forming machine operator in the most recent nutrition assessment on 04/24/16. This was commucated to both myself and my attending physician while in the radiology suite yesterday afternoon after patient had IR placement of PEG tube. If any concerns or questions, please do not hesitate to contact the IR suite.
[2016-04-25 14:11] VITALS: BP 122/70
[2016-04-25 22:53] VITALS: BP 94/66
[2016-04-26 07:11] VITALS: BP 124/70
--- NOTE | 2016-04-26 08:04 | PN- Housestaff ---
RAYMOND ALDRICH,MANDEEP 04/26/16 0803: Subjective Follow-up For: Dysphagia on tube feeds Left vocal cord paralysis Strep pneumo meningitis Mastoiditis Otitis media Subjective: I saw the patient today She was delirious, unable to offer any complaints. Review of Systems Constitutional: Reports: see HPI. Comments: ROS cannot be obtained as per the patients clinical condition. Objective Last 24 Hrs of Vital Signs/I&O Vital Signs Date Time Temp Pulse Resp B/P Pulse O2 O2 Flow FiO2 Ox Delivery Rate 04/26 0711 97.7 86 20 124/70 91 Room Air 04/25 2253 98.4 90 20 94/66 93 Room Air 04/25 1411 98.2 96 20 122/70 93 Intake & Output 04/26 1600 04/26 0800 04/26 0000 Intake Total 1110 660 Output Total Balance 1110 660 Intake, IV 600 420 Intake, Oral 0 Intake, Tube 310 140 Feeding Intake, Tube 200 100 Irrigant Physical Exam General Appearance: Alert, Mild Distress Skin: No Rashes HEENT: Atraumatic Neck: Supple Cardiovascular: Normal S1, Normal S2 Lungs: decreased breath sounds at the bases Abdomen: PEG tube in place Neurological: Sensation Intact Extremities: No Clubbing, No Cyanosis, No Edema Current Medications: Current Medications Sig/Garrick Start time Last Medication Dose Route Stop Time Status Admin Acetaminophen 1,000 MG .STK-MED ONE 04/25 2059 DC IV 04/25 2100 Acetaminophen 1,000 MG Q6-PRN PRN 03/17 1630 AC 04/26 N/A 1 UNIT IV 0728 Albuterol Sulfate 3 ML EVERY 4 HRS/AWAKE .. 04/13 1700 AC 04/13 INH 1530 Dextrose/Sodium 1,000 ML .[id number] 04/22 1100 AC 04/25 Chloride IV 2207 Heparin Sodium 5,000 UNIT Q8 04/25 1550 AC 04/26 (Porcine) SC 0547 Hydralazine HCl 10 MG Q8 PRN 03/23 1315 AC 04/12 IV 1805 Insulin Aspart 0 TIDAC 04/26 0800 AC SC Insulin Human Regular 0 Q6 04/08 0600 DC 04/25 SC 1210 Levetiracetam 1,500 MG Q12H 03/28 0600 AC 04/26 Sodium Chloride 100 ML IV 0552 Levothyroxine Sodium 12.5 MCG DAILY 03/19 1000 AC 04/25 IV 1210 Pantoprazole Sodium 40 MG DAILY 03/18 1000 AC 04/25 IV 1014 Patient Medication 1 ED .STK-MED ONE 04/[address] Teaching ED 04/25 1408 Polyethylene Glycol 17 GM DAILY PRN 03/31 1215 AC 04/02 PO 0025 Valproate Sodium 1,000 MG Q8H 03/28 0200 AC 04/26 Sodium Chloride 100 ML IV 0234 Last 24 Hrs of Lab/Keaton Results Last 24 Hrs of Labs/Mics: Laboratory Tests 04/26/16 0610: Sodium Pending, Potassium Pending, Chloride Pending, Carbon Dioxide Pending, Anion Gap Pending, BUN Pending, Creatinine Pending, BUN/Creatinine Ratio Pending , Magnesium Pending Assessment/Plan Assessment: Ms. Leslie is a 70-year-old female with past medical history of hypertension, hyperlipidemia, hypothyroidism and diabetes mellitus who presented to the emergency department after being found unresponsive at home. She was initially admitted to the ICU for management of strep pneumo meningitis, which was complicated by seizures, cardiac and respiratory arrest. Below is the current management while the patient is on the telemetry floor: #Strep pneumo meningitis Mentation seems to be fluctuating we'll continue to monitor and see how the patient responds to feeds from PEG tube. Strep pneumo meningitis was confirmed by CSF culture and blood culture s/p tx with ceftriaxone (stopped on 03/31/2016) and vancomycin intermittently along with IV unasyn. 2x TTEs and one SAMUEL have both been negative for any valvular pathology - currently off of abx. ID input appreciated - watching of of ABX - we will panculture if she becomes febrile once again. #Dysphagia Failed prior swallow eval and could not have a PEG tube insertion secondary to desaturation during procedure Patient is s/p placement of orogastric feeding tube and received oral contrast last night in preparation for PEG tube placement on 04/24/2016 with IR/Anesthesia 04/25/2016 owing to successful insertion of PEG tube on 04/24/2016. The patient was then started on tube feeds as per recommendations from nutrition as tolerating well without any residual. Order had been NPO to NovoLog sliding scale. We'll continue to monitor. Continue patient on D51/2NS at 60 cc/h for nutrition. Consider discontinuing fluids if tube feeds are up to goal rate and patient tolerating Tube feeds well. #Otitis media s/p BL tympanostomy tube placement Continue to follow ENT recommendations We are currently pending ENT reassessment for possibly right middle ear fluid drainage - off antiobiotics for now Durbin culture if she spikes a fever or shows s/s infectious etiology/leukocytosis #Seizures Continue keppra and depakote daily, transition to oral medications today. No further episodes of seizure while while on general medicine floor #Acute respiratory failure Resolved, patient s/p intubation while in the ICU She has been weaned off of O2 via nasal cannula and saturating well on RA Provide supplemental O2 as needed to maintain O2 sats >92% #Discharge planning Patient will require STR, likely will be discharged within the next few days if PEG procedure goes as planned Case management aware and bed search under way #Bilateral eye crusting Nursing notified to moisten and clean bilateral eye crusting every shift No s/s conjunctivitis (no hyperema or erythema of conjunctiva), will continue to monitor FULL CODE DVTP: Heparin SC Problem List: 1. Meningitis 2. Left otitis media 3. Altered mental state 4. Pneumococcal meningitis 5. Seizures 6. Metabolic encephalopathy 7. Anemia 8. S/P tympanic tube insertion 9. T2DM (type 2 diabetes mellitus) 10. Hypothyroidism 11. Vocal cord dysfunction Pain Ratin Pain Location: n/a Pain Goal: Pain 4 or less Pain Plan: tylenol IV Tomorrow's Labs & Rationales: bep Consulting Request: Consulting Specialty: Pulmonary Disease ISIAH ALDRICH,[facility] 04/26/16 1245: Attending MD Review Statement Attending Statement Attending MD Statement: examined this patient, discuss w/resident/PA/RAILROAD DETECTIVE, agreed w/resident/PA/RAILROAD DETECTIVE, discussed with family, reviewed EMR data (avail), discussed with nursing, reviewed images, amended to note Attending Assessment/Plan: Patient seen and examined, still remains confused. She is able to tolerate tube feeds well. She is at her goal now. At this point we can switch her IV medications to be given via PEG. A/P; Ms. Leslie is a 70-year-old female with past medical history of hypertension, hyperlipidemia, hypothyroidism and diabetes mellitus who was initially admitted to the ICU for management of strep pneumo meningitis, mastoiditis treated with abx. Course was complicated by seizures, cardiac and respiratory arrest. Stabilized and transferred to [facility] for rehabilitation. Has devloped Dysphgia and finally got PEG tube placed. Now able to tolerate tube feeds at its goal. She is delirious. We'll continue the tube feeds. We'll switch the IV medications to be given via PEG. We will try to reorient her. We'll keep the curtains open during the daytime. Patient will need to work aggressively with physical therapy and will likely need to be placed in a rehab. D/W patient's on at bedside.
--- NOTE | 2016-04-26 08:07 | NUR ---
PT PLACED ON HOLD 2* TO PEG TUBE PLACEMENT ON 04/25 -MUST DEFER AT LAST 24 HOURS PRIOR TO MOBILIZATION. PT WILL ATTEMPT EVALUATION WHEN APPROPRIATE.
[2016-04-26 14:51] VITALS: BP 125/70
[2016-04-26 22:14] VITALS: BP 120/70
[2016-04-27 07:16] VITALS: BP 128/78
--- NOTE | 2016-04-27 08:05 | PN- Housestaff ---
See Addendum Subjective Follow-up For: Dysphagia on tube feeds Left vocal cord paralysis Strep pneumo meningitis Mastoiditis Otitis media Subjective: Patient seen and examined at bedside. Resting comfortably in bed. She continues to be delirious with no changes from yest. Denies any pain. Offers no compalints. Review of Systems Constitutional: Reports: see HPI. Objective Last 24 Hrs of Vital Signs/I&O Vital Signs Date Time Temp Pulse Resp B/P Pulse O2 O2 Flow FiO2 Ox Delivery Rate 04/27 0716 97.2 89 20 128/78 91 Room Air 04/26 2214 97.5 91 20 120/70 94 Room Air 04/26 1451 98.0 90 20 125/70 93 Intake & Output 04/27 1600 04/27 0800 04/27 0000 Intake Total 680 Output Total Balance 680 Intake, Tube 480 Feeding Intake, Tube 200 Irrigant Number 2 Bowel Movements Physical Exam General Appearance: Alert, Cooperative, Mild Distress Other Physical Findings: Skin: No Rashes HEENT: Atraumatic Neck: Supple Cardiovascular: Normal S1, Normal S2 Lungs: decreased breath sounds at the bases Abdomen: PEG tube in place Neurological: Sensation Intact Extremities: No Clubbing, No Cyanosis, No Edema Current Medications: Current Medications Sig/Garrick Start time Last Medication Dose Route Stop Time Status Admin Acetaminophen 1,000 MG Q6-PRN PRN 03/17 1630 AC 04/26 N/A 1 UNIT IV 0728 Albuterol Sulfate 3 ML EVERY 4 HRS/AWAKE .. 04/13 1700 AC 04/13 INH 1530 Dextrose/Sodium 1,000 ML .[id number] 04/22 1100 AC 04/27 Chloride IV 0615 Heparin Sodium 5,000 UNIT Q8 04/25 1550 AC 04/27 (Porcine) SC 0616 Hydralazine HCl 10 MG Q8 PRN 03/23 1315 AC 04/12 IV 1805 Insulin Aspart 0 TIDAC 04/26 0800 AC 04/26 SC 1643 Levetiracetam 1,500 MG Q12 04/26 2200 AC PEG Levetiracetam 1,500 MG Q12H 03/28 0600 DC 04/26 Sodium Chloride 100 ML IV 1747 Levothyroxine Sodium 12.5 MCG DAILY 03/19 1000 AC 04/26 IV 1034 Magnesium Sulfate 1 GM ONCE ONE 04/26 1815 DC 04/26 Dextrose/Water 100 ML IV 04/26 Pantoprazole Sodium 40 MG DAILY 03/18 1000 AC 04/26 IV 1034 Polyethylene Glycol 17 GM DAILY PRN 03/31 1215 AC 04/02 PO 0025 Valproate Sodium 1,000 MG Q8H 03/28 0200 DC 04/26 Sodium Chloride 100 ML IV 1806 Valproic Acid 1,000 MG Q8 04/26 2200 AC 04/27 PO 0616 Assessment/Plan Assessment: Ms. Leslie is a 70-year-old female with past medical history of hypertension, hyperlipidemia, hypothyroidism and diabetes mellitus who presented to the emergency department after being found unresponsive at home. She was initially admitted to the ICU for management of strep pneumo meningitis, which was complicated by seizures, cardiac and respiratory arrest. Below is the current management while the patient is on the telemetry floor: #Strep pneumo meningitis Mentation seems to be fluctuating we'll continue to monitor and see how the patient responds to feeds from PEG tube. Strep pneumo meningitis was confirmed by CSF culture and blood culture s/p tx with ceftriaxone (stopped on 03/31/2016) and vancomycin intermittently along with IV unasyn. 2x TTEs and one SAMUEL have both been negative for any valvular pathology - currently off of abx. ID input appreciated - watching of of ABX - we will panculture if she becomes febrile once again. #Dysphagia Failed prior swallow eval and could not have a PEG tube insertion secondary to desaturation during procedure Patient is s/p placement of orogastric feeding tube and received oral contrast last night in preparation for PEG tube placement on 04/24/2016 with IR/Anesthesia 04/25/2016 owing to successful insertion of PEG tube on 04/24/2016. The patient was then started on tube feeds as per recommendations from nutrition as tolerating well without any residual. Order had been NPO to NovoLog sliding scale. We'll continue to monitor. Discontinue IVF as patient is tolerating tube feeds well. #Otitis media s/p BL tympanostomy tube placement Continue to follow ENT recommendations Follow ENT recs for possibly right middle ear fluid drainage - off antiobiotics for now Durbin culture if she spikes a fever or shows s/s infectious etiology/leukocytosis #Seizures Continue keppra and depakote PO QD No further episodes of seizure while while on general medicine floor #Acute respiratory failure Resolved, patient s/p intubation while in the ICU She has been weaned off of O2 via nasal cannula and saturating well on RA Provide supplemental O2 as needed to maintain O2 sats >92% #Discharge planning Patient will require STR, likely will be discharged within the next few days if PEG procedure goes as planned Case management aware and bed search under way #Bilateral eye crusting Nursing notified to moisten and clean bilateral eye crusting every shift No s/s conjunctivitis (no hyperema or erythema of conjunctiva), will continue to monitor FULL CODE DVTP: Heparin SC Problem List: 1. Meningitis 2. Sepsis 3. Left otitis media 4. Altered mental state 5. Lactic acidosis 6. Dependence on ventilator, status 7. Pneumococcal meningitis 8. Respiratory failure 9. Seizures 10. Toxic encephalopathy 11. Metabolic encephalopathy 12. Anemia 13. T2DM (type 2 diabetes mellitus) 14. Hypothyroidism 15. Vocal cord dysfunction 16. Malnutrition 17. Dysphagia 18. Aspiration pneumonia Pain Ratin Pain Location: N/A Pain Goal: Pain 4 or less Pain Plan: tylenol IV Tomorrow's Labs & Rationales: BEP Consulting Request: Consulting Specialty: Pulmonary Disease
--- NOTE | 2016-04-27 09:06 | NUR ---
After discussing with nursing, despite previous ambulatory functional status, she is now a hoang at baseline, unable to following commands and inconsistently responsive. PT will hold on therapy until tomorrow AM.
[2016-04-27 14:50] VITALS: BP 120/68
[2016-04-27 22:21] VITALS: BP 128/78
[2016-04-28 06:06] LABS: ABSOLUTE BASOPHIL COUNT 0 /CUMM (0.0-0.2); ABSOLUTE EOSINOPHIL COUNT 0.1 /CUMM (0.0-0.7); ABSOLUTE GRANULOCYTE CT 3.6 /CUMM (1.4-6.5); ABSOLUTE LYMPH COUNT 2.1 /CUMM (1.2-3.4); ABSOLUTE MONOCYTE COUNT 1.3 /CUMM (0.10-0.60); BASOPHIL % 0.5 % (0.0-2.0); EOSINOPHIL % 0.8 % (0-5); GRANULOCYTE % 51.1 % (42.2-75.2); HEMATOCRIT 31.6 % (37-47); MEAN CORPUSCULAR HGB 29.5 PG (27.0-31.0); MEAN CORPUSCULAR HGB CONC 33.3 G/DL (33.0-37.0); MEAN CORPUSCULAR VOLUME 88.6 FL (81.0-99.0); PLATELET COUNT 86 /CUMM (130-400); RBC DISTRIBUTION WIDTH 17.7 % (11.5-14.5); RED BLOOD CELL CT 3.56 /CUMM (4.20-5.40); WHITE BLOOD CELL COUNT 7.1 /CUMM (4.8-10.8)
--- NOTE | 2016-04-28 06:26 | PN- Housestaff ---
RUBEN ALDRICH,[facility] 04/28/16 0625: Subjective Follow-up For: Dysphagia on tube feeds Left vocal cord paralysis Strep pneumo meningitis Mastoiditis Otitis media Subjective: Ms Leslie was seen and examined this morning. She is resting comfortably in bed. She is alert to place however not to time or person. Patient states that she has a hard time with her hearing, and states she is unable to hear, although was able to understand part of the clinical interaction. Patient states that she is in no pain at the moment. She states that she is delirious and is under the impression that she has lost her family. Patient denies any fever, chills, nausea, vomiting. Review of Systems Constitutional: Reports: see HPI. Objective Last 24 Hrs of Vital Signs/I&O Vital Signs Date Time Temp Pulse Resp B/P Pulse O2 O2 Flow FiO2 Ox Delivery Rate 04/28 0709 98.1 86 22 128/72 92 Room Air 04/27 2221 97.2 85 22 128/78 94 Room Air 04/27 1450 98.2 66 20 120/68 96 Intake & Output 04/28 0800 04/28 0000 04/27 1600 Intake Total 810 680 0 Output Total 780 Balance 810 680 -780 Intake, IV 130 0 Intake, Oral 0 0 Intake, Tube 480 480 Feeding Intake, Tube 200 200 Irrigant Output, Other 780 Physical Exam General Appearance: Alert, Cooperative, No Acute Distress Cardiovascular: Normal S1, Normal S2, No Murmurs Lungs: Increased expiratory Sounds Abdomen: Normal Bowel Sounds, Soft, No Tenderness Neurological: Normal Speech, Sensation Intact, Strength 4/5 Upper extremities Current Medications: Current Medications Sig/Garrick Start time Last Medication Dose Route Stop Time Status Admin Acetaminophen 1,000 MG Q6-PRN PRN 03/17 1630 AC 04/28 N/A 1 UNIT IV 0026 Albuterol Sulfate 3 ML EVERY 4 HRS/AWAKE .. 04/13 1700 AC 04/13 INH 1530 Dextrose/Sodium 1,000 ML .[id number] 04/22 1100 DC 04/27 Chloride IV 0615 Heparin Sodium 5,000 UNIT Q8 04/25 1550 AC 04/28 (Porcine) SC 0530 Hydralazine HCl 10 MG TID 04/27 1021 DC PO Hydralazine HCl 10 MG Q8 PRN 03/23 1315 DC 04/12 IV 1805 Insulin Aspart 0 Q6 04/27 1800 AC 04/28 SC 0542 Insulin Aspart 0 TIDAC 04/26 0800 DC 04/27 SC 1216 Levetiracetam 1,500 MG Q12 04/26 2200 AC 04/27 PEG 2101 Levothyroxine Sodium 12.5 MCG DAILY 03/19 1000 AC 04/27 IV 1023 Magnesium Sulfate 1 GM ONCE ONE 04/27 1130 DC Dextrose/Water 100 ML IV 04/27 1529 Pantoprazole Sodium 40 MG DAILY 03/18 1000 AC 04/27 IV 0922 Polyethylene Glycol 17 GM DAILY PRN 03/31 1215 AC 04/02 PO 0025 Valproic Acid 1,000 MG Q8 04/26 2200 AC 04/28 PO 0530 Last 24 Hrs of Lab/Keaton Results Last 24 Hrs of Labs/Mics: Laboratory Tests 04/28/16 0535: Magnesium 1.7, CBC w Diff NO MAN DIFF REQ, RBC 3.56 L, MCV 88.6, MCH 29.5, RDW 17.7 H, MPV 9.0, Gran % 51.1, Lymphocytes % 29.6, Monocytes % 18.0 H, Eosinophils % 0.8, Basophils % 0.5, Absolute Granulocytes 3.6, Absolute Lymphocytes 2.1, Absolute Monocytes 1.3 H, Absolute Eosinophils 0.1, Absolute Basophils 0, PUBS MCHC 33.3 Assessment/Plan Assessment: Ms. Leslie is a 70-year-old female with past medical history of hypertension, hyperlipidemia, hypothyroidism and diabetes mellitus who presented to the emergency department after being found unresponsive at home. She was initially admitted to the ICU for management of strep pneumo meningitis, which was complicated by seizures, cardiac and respiratory arrest. Below is the current management while the patient is on the telemetry floor: #Strep pneumo meningitis Mentation seems to be fluctuating we'll continue to monitor and see how the patient responds to feeds from PEG tube. Strep pneumo meningitis was confirmed by CSF culture and blood culture s/p tx with ceftriaxone (stopped on 03/31/2016) and vancomycin intermittently along with IV unasyn. 2x TTEs and one SAMUEL have both been negative for any valvular pathology - currently off of abx. ID input appreciated - watching of of ABX - we will panculture if she becomes febrile once again. #Dysphagia Failed prior swallow eval and could not have a PEG tube insertion secondary to desaturation during procedure Patient is s/p placement of orogastric feeding tube and received oral contrast last night in preparation for PEG tube placement on 04/24/2016 with IR/Anesthesia 04/25/2016 owing to successful insertion of PEG tube on 04/24/2016. The patient was then started on tube feeds as per recommendations from nutrition as tolerating well without any residual. Order had been NPO to NovoLog sliding scale. We'll continue to monitor. Discontinue IVF as patient is tolerating tube feeds well. #Otitis media s/p BL tympanostomy tube placement Continue to follow ENT recommendations Follow ENT recs for possibly right middle ear fluid drainage - off antiobiotics for now Durbin culture if she spikes a fever or shows s/s infectious etiology/leukocytosis #Seizures Continue keppra and depakote PO QD. Requested a call back from Dr Jules regarding the liklelihood of stopping these medications, especially due to EEG no being suggestive of any seizures. Consider Repeat EEG. No further episodes of seizure while while on general medicine floor #Acute respiratory failure Resolved, patient s/p intubation while in the ICU She has been weaned off of O2 via nasal cannula and saturating well on RA Provide supplemental O2 as needed to maintain O2 sats >92% #Discharge planning Patient will require STR, likely will be discharged within the next few days if PEG procedure goes as planned Case management aware and bed search under way #Bilateral eye crusting Nursing notified to moisten and clean bilateral eye crusting every shift No s/s conjunctivitis (no hyperema or erythema of conjunctiva), will continue to monitor FULL CODE DVTP: Heparin SC Problem List: 1. Dysphagia 2. Vocal cord dysfunction 3. S/P tympanic tube insertion 4. T2DM (type 2 diabetes mellitus) 5. Pneumococcal meningitis Pain Ratin Pain Location: No Pain Reported Pain Goal: Remain pain free Pain Plan: Tylenol PRN Tomorrow's Labs & Rationales: No Labs needed Consulting Request: Consulting Specialty: Pulmonary Disease JENNIFER JOYCE MD 04/28/16 1112: Attending MD Review Statement Attending Statement Attending MD Statement: examined this patient, discuss w/resident/PA/LINER REPLACER, agreed w/resident/PA/LINER REPLACER, discussed with family, reviewed EMR data (avail), discussed with nursing, discussed with case mgmt, amended to note Attending Assessment/Plan: Patient seen and examined, she is very confused. She is talking but that is random and does not know what she is talking and it is not making any sense. She has been tolerating her tube feeds well. Vital Signs Date Time Temp Pulse Resp B/P Pulse O2 O2 Flow FiO2 Ox Delivery Rate 04/28 0709 98.1 86 22 128/72 92 Room Air 04/27 2221 97.2 85 22 128/78 94 Room Air 04/27 1450 98.2 66 20 120/68 96 on exam; awake, nad. cv; s1,s2, rrr. resp; clear abd; soft, nt, bs+ ext; no edema Laboratory Tests 04/28 0535 Chemistry Magnesium (1.6 - 2.3 mg/dL) 1.7 Hematology CBC w Diff NO MAN DIFF REQ WBC (4.8 - 10.8 /CUMM) 7.1 RBC (4.20 - 5.40 /CUMM) 3.56 L Hgb (12.0 - 16.0 G/DL) 10.5 L Hct (37 - 47 %) 31.6 L MCV (81.0 - 99.0 FL) 88.6 MCH (27.0 - 31.0 PG) 29.5 RDW (11.5 - 14.5 %) 17.7 H Plt Count (130 - 400 /CUMM) 86 L MPV (7.4 - 10.4 FL) 9.0 Gran % (42.2 - 75.2 %) 51.1 Lymphocytes % (20.5 - 51.1 %) 29.6 Monocytes % (1.7 - 9.3 %) 18.0 H Eosinophils % (0 - 5 %) 0.8 Basophils % (0.0 - 2.0 %) 0.5 Absolute Granulocytes (1.4 - 6.5 /CUMM) 3.6 Absolute Lymphocytes (1.2 - 3.4 /CUMM) 2.1 Absolute Monocytes (0.10 - 0.60 /CUMM) 1.3 H Absolute Eosinophils (0.0 - 0.7 /CUMM) 0.1 Absolute Basophils (0.0 - 0.2 /CUMM) 0 PUBS MCHC (33.0 - 37.0 G/DL) 33.3 A/P; Ms. Leslie is a 70-year-old female with past medical history of hypertension, hyperlipidemia, hypothyroidism and diabetes mellitus who was initially admitted to the ICU for management of strep pneumo meningitis, mastoiditis treated with abx. Course was complicated by seizures, cardiac and respiratory arrest. Stabilized and transferred to [facility]. Has devloped Dysphgia and finally got PEG tube placed. Now able to tolerate tube feeds at its goal. She is still very delirious. We have switched all of her medications to be given via had. I would recommend putting the patient from out of bed to chair. She should but his weight with physical therapy aggressively. We should try to reorient her as much as possible. I also wonder if she needs to antiseizure medications. She is currently on Keppra and valproic acid. I think we should discuss with neurology to see if she continues to need to antiseizure medications. This could certainly be leading to her confused state agitation and emotional lability. DVT px; Hep sq. Needs rehab
[2016-04-28 07:09] VITALS: BP 128/72
[2016-04-28 14:03] VITALS: BP 140/70
--- NOTE | 2016-04-28 15:34 | NUR ---
Met with patients Antonio cabezas am and assisted with completion of HUSKY Application. Mr. Leslie had been successful in accessing nearly all of the info needed, so application was completed and will be placed into mail tomorrow to the [facility].
--- NOTE | 2016-04-28 16:12 | Event Note ---
Event Note Event Note: Situation Owing to the patient's recent lability we considered discontinuing the patient's anti Seizure medications Depakote and valproic acid Brief. I contacted the neurologist Dr. Jules. Shared with him concerns team. Neurologist recommended that we go ahead and order an EEG and based on the study results of this, we can decide whether the patient can be discontinued her antiseizure medications. It was also recommended that a Depakote trough was to be ordered. Assessment and plan After EEG study. It has been concluded that the patient will still benefit to be continued on antiseizure medications
--- NOTE | 2016-04-28 20:09 | PN- Neurology ---
Subjective Subjective: Patient still very confused. Rambling incoherently. Hugging her pillow and talking to it as if it was a child. At some point says "I am blind". Review of Systems: no change. Objective Vital Signs and I&Os Vital Signs Date Time Temp Pulse Resp B/P Pulse O2 O2 Flow FiO2 Ox Delivery Rate 04/28 1617 Room Air 3.0L 04/28 1403 98.8 88 20 140/70 95 04/28 0709 98.1 86 22 128/72 92 Room Air 04/27 2221 97.2 85 22 128/78 94 Room Air Intake & Output 04/28 1600 04/28 0800 04/28 0000 04/27 1600 04/27 0800 04/27 0000 Intake Total 700 810 680 0 1420 680 Output Total 1 780 Balance 699 810 680 -780 1420 680 Intake, IV 0 130 0 600 Intake, Oral 0 0 0 0 Intake, Tube 500 480 480 480 480 Feeding Intake, Tube 200 200 200 340 200 Irrigant Number 1 1 2 Bowel Movements Output, Other 780 Output, Stool 1 Physical Exam: Alert but confused and does not respond to questions adequately. Restless Disoriented. Face symmetric. EOMI, left eyelid droopy. Fluent, but does not follow commands. Moves all limbs equally. Current Medications: Current Medications Sig/Garrick Start time Last Medication Dose Route Stop Time Status Admin Acetaminophen 650 MG Q6P PRN 04/28 0930 AC PO Acetaminophen 650 MG Q4P PRN 04/28 0845 DC PO Acetaminophen 1,000 MG .STK-MED ONE 04/28 0022 DC IV 04/28 0023 Acetaminophen 1,000 MG Q6-PRN PRN 03/17 1630 DC 04/28 N/A 1 UNIT IV 0026 Albuterol Sulfate 3 ML EVERY 4 HRS/AWAKE .. 04/13 1700 AC 04/13 INH 1530 Heparin Sodium 5,000 UNIT Q8 04/25 1550 AC 04/28 (Porcine) SC 1444 Insulin Aspart 0 Q6 04/27 1800 AC 04/28 SC 1228 Levetiracetam 1,500 MG Q12 04/26 2200 AC 04/28 PEG 1016 Levothyroxine Sodium 0.025 MG DAILY AC 04/28 0731 AC 04/28 PO 1015 Levothyroxine Sodium 12.5 MCG DAILY 03/19 1000 DC 04/27 IV 1023 Omeprazole 40 MG DAILY AC 04/28 0732 AC 04/28 PO 1016 Pantoprazole Sodium 40 MG DAILY 03/18 1000 DC 04/27 IV 0922 Patient Medication 1 ED ONE ONE 04/28 1430 [place] Teaching ED 04/28 1431 Polyethylene Glycol 17 GM DAILY PRN 03/31 1215 AC 04/02 PO 0025 Valproic Acid 1,000 MG Q8 04/26 2200 AC 04/28 PO 1444 Results Last 24 Hours of Lab Results: Laboratory Tests 04/28 0535 Chemistry Magnesium (1.6 - 2.3 mg/dL) 1.7 Hematology CBC w Diff NO MAN DIFF REQ WBC (4.8 - 10.8 /CUMM) 7.1 RBC (4.20 - 5.40 /CUMM) 3.56 L Hgb (12.0 - 16.0 G/DL) 10.5 L Hct (37 - 47 %) 31.6 L MCV (81.0 - 99.0 FL) 88.6 MCH (27.0 - 31.0 PG) 29.5 RDW (11.5 - 14.5 %) 17.7 H Plt Count (130 - 400 /CUMM) 86 L MPV (7.4 - 10.4 FL) 9.0 Gran % (42.2 - 75.2 %) 51.1 Lymphocytes % (20.5 - 51.1 %) 29.6 Monocytes % (1.7 - 9.3 %) 18.0 H Eosinophils % (0 - 5 %) 0.8 Basophils % (0.0 - 2.0 %) 0.5 Absolute Granulocytes (1.4 - 6.5 /CUMM) 3.6 Absolute Lymphocytes (1.2 - 3.4 /CUMM) 2.1 Absolute Monocytes (0.10 - 0.60 /CUMM) 1.3 H Absolute Eosinophils (0.0 - 0.7 /CUMM) 0.1 Absolute Basophils (0.0 - 0.2 /CUMM) 0 PUBS MCHC (33.0 - 37.0 G/DL) 33.3 Toxicology Valproic Acid (50 - 120 ug/mL) 97.2 Recent Imaging Studies: MRI brain 04/14 IMPRESSION: Limited study with motion artifacts. 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 A few scattered foci of diffusion signal abnormality within the frontoparietal sulci as well bilaterally. Fluid and enhancement in the mastoid air cells and middle ear cavities, worse on the right side. 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 Much more alert but still floridly delirious. Plan: 1. Check ammonia levels. 2. Repeat EEG. May require an overnight EEG for better sensitivity. 3. Hold off reducing anti-epileptic medications. 4. Correct any metabolic or electrolyte derangements.
--- NOTE | 2016-04-28 21:29 | ELECTROENCEPHALOGRAM REPORT ---
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 Inpatient Medications: Current Medications Sig/Garrick Start time Last Medication Dose Route Stop Time Status Admin Acetaminophen 650 MG Q6P PRN 04/28 0930 AC PO Acetaminophen 650 MG Q4P PRN 04/28 0845 DC PO Acetaminophen 1,000 MG .STK-MED ONE 04/28 0022 DC IV 04/28 0023 Acetaminophen 1,000 MG Q6-PRN PRN 03/17 1630 DC 04/28 N/A 1 UNIT IV 0026 Albuterol Sulfate 3 ML EVERY 4 HRS/AWAKE .. 04/13 1700 AC 04/13 INH 1530 Heparin Sodium 5,000 UNIT Q8 04/25 1550 AC 04/28 (Porcine) SC 2120 Insulin Aspart 0 Q6 04/27 1800 AC 04/28 SC 1228 Levetiracetam 1,500 MG Q12 04/26 2200 AC 04/28 PEG 2120 Levothyroxine Sodium 0.025 MG DAILY AC 04/28 0731 AC 04/28 PO 1015 Levothyroxine Sodium 12.5 MCG DAILY 03/19 1000 DC 04/27 IV 1023 Omeprazole 40 MG DAILY AC 04/28 0732 AC 04/28 PO 1016 Pantoprazole Sodium 40 MG DAILY 03/18 1000 DC 04/27 IV 0922 Patient Medication 1 ED ONE ONE 04/28 1430 DC Teaching ED 04/28 1431 Polyethylene Glycol 17 GM DAILY PRN 03/31 1215 AC 04/02 PO 0025 Valproic Acid 1,000 MG Q8 04/26 2200 AC 04/28 PO 2120 Interpretation: The recording demonstrates a mild general slowing of backgrounds with some more focal slowing within the left frontal region. The predominant rhythm is theta with some delta seen within the left frontal region. There are no paroxysmal features or epileptiform sharps. The posterior dominant rhythm is estimated at 7 hertz bilaterally. Impression: Abnormal EEG to mild background slowing with more pronounced slowing in the left frontal region. No suggested seizure acitivity. EEG consistent with a non- specific encephalopathy.
[2016-04-28 21:57] VITALS: BP 120/70
--- NOTE | 2016-04-29 05:55 | PN- Housestaff ---
RUBEN ALDRICH,[facility] 04/29/16 0554: Subjective Follow-up For: Dysphagia on tube feeds Left vocal cord paralysis Strep pneumo meningitis Mastoiditis Otitis media Subjective: Mrs Leslie was seen and examined this morning. She is resting comfortably in bed. She appears to be delirious and feels that she is at a restaurant. The patient denies any discomfort or any pain. Patient denies any fever, chills , nausea, vomiting. of the patient Flor does feel that she has developed difficulty hearing over the last short-term. Review of Systems Constitutional: Reports: see HPI. Objective Last 24 Hrs of Vital Signs/I&O Vital Signs Date Time Temp Pulse Resp B/P Pulse O2 O2 Flow FiO2 Ox Delivery Rate 04/29 0000 93 Room Air 04/28 2157 97.6 90 20 120/70 93 04/28 1617 Room Air 3.0L 04/28 1403 98.8 88 20 140/70 95 / 0709 98.1 86 22 128/72 92 Room Air Intake & Output 04/29 0800 04/29 0000 04/28 1600 Intake Total 340 700 Output Total 1 Balance 340 699 Intake, IV 0 Intake, Oral 0 0 Intake, Tube 240 500 Feeding Intake, Tube 100 200 Irrigant Number 1 Bowel Movements Output, Stool 1 Physical Exam General Appearance: Alert, Oriented X3, Cooperative Cardiovascular: Normal S1, Normal S2, No Murmurs Lungs: Clear to Auscultation Abdomen: Normal Bowel Sounds, Soft, No Tenderness, Abdominal Binder in place Extremities: No Clubbing, No Cyanosis, No Edema Vascular: Normal Pulses Current Medications: Current Medications Sig/Garrick Start time Last Medication Dose Route Stop Time Status Admin Acetaminophen 650 MG Q6P PRN 04/28 0930 AC PO Albuterol Sulfate 3 ML EVERY 4 HRS/AWAKE .. 04/13 1700 AC 04/13 INH 1530 Heparin Sodium 5,000 UNIT Q8 04/25 1550 AC 04/29 (Porcine) SC 0517 Insulin Aspart 0 Q6 04/27 1800 AC 04/29 SC 1138 Levetiracetam 1,500 MG Q12 04/26 2200 AC 04/29 PEG 1012 Levothyroxine Sodium 0.025 MG DAILY AC 04/28 0731 AC 04/29 PO 0532 Omeprazole 40 MG DAILY AC 04/28 0732 AC 04/29 PO 0532 Patient Medication 1 ED ONE ONE 04/28 1430 [place] Teaching ED 04/28 1431 Polyethylene Glycol 17 GM DAILY PRN 03/31 1215 AC 04/02 PO 0025 Valproic Acid 1,000 MG Q8 04/26 2200 AC 04/29 PO 0517 Last 24 Hrs of Lab/Keaton Results Last 24 Hrs of Labs/Mics: Laboratory Tests 04/29/16 0508: Anion Gap 7, Estimated GFR > 60, BUN/Creatinine Ratio 24.0, Ammonia 17 04/28/16 1412: Valproic Acid Cancelled Assessment/Plan Assessment: Ms. Leslie is a 70-year-old female with past medical history of hypertension, hyperlipidemia, hypothyroidism and diabetes mellitus who presented to the emergency department after being found unresponsive at home. She was initially admitted to the ICU for management of strep pneumo meningitis, which was complicated by seizures, cardiac and respiratory arrest. Below is the current management while the patient is on the telemetry floor: #Strep pneumo meningitis Mentation seems to be fluctuating we'll continue to monitor and see how the patient responds to feeds from PEG tube. Strep pneumo meningitis was confirmed by CSF culture and blood culture s/p tx with ceftriaxone (stopped on 03/31/2016) and vancomycin intermittently along with IV unasyn. 2x TTEs and one SAMUEL have both been negative for any valvular pathology - currently off of abx. ID input appreciated - watching of of ABX - we will panculture if she becomes febrile once again. #Dysphagia Failed prior swallow eval and could not have a PEG tube insertion secondary to desaturation during procedure Patient is s/p placement of orogastric feeding tube and received oral contrast last night in preparation for PEG tube placement on 04/24/2016 with IR/Anesthesia 04/25/2016 owing to successful insertion of PEG tube on 04/24/2016. The patient was then started on tube feeds as per recommendations from nutrition as tolerating well without any residual. Order had been NPO to NovoLog sliding scale. We'll continue to monitor. Discontinue IVF as patient is tolerating tube feeds well. #Bilateral hearing loss. Patient has continued to experience worsening hearing loss. Hearing loss seems to be worse on the left-hand side compared to the right. Initial call to Dr. Sánchez this a.m. of ENT to expalin the situation. Will attempt to recall Dr. Sánchez this afternoon and formally ask her to come and evaluate patient's hearing. #Otitis media s/p BL tympanostomy tube placement Continue to follow ENT recommendations Follow ENT recs for possibly right middle ear fluid drainage - off antiobiotics for now Durbin culture if she spikes a fever or shows s/s infectious etiology/leukocytosis #Seizures Continue keppra and depakote PO QD. Requested a call back from Dr Jules regarding the liklelihood of stopping these medications, especially due to EEG no being suggestive of any seizures. Ammonia levels:17 Repeat EEG showed: Abnormal EEG to mild background slowing with more pronounced slowing in the left frontal region. No suggested seizure acitivity. EEG consistent with a non-specific encephalopathy. We'll continue all antiepileptic medications. No further episodes of seizure while while on general medicine floor #Acute respiratory failure Resolved, patient s/p intubation while in the ICU She has been weaned off of O2 via nasal cannula and saturating well on RA Provide supplemental O2 as needed to maintain O2 sats >92% #Discharge planning Patient will require STR, likely will be discharged within the next few days if PEG procedure goes as planned Case management aware and bed search under way. Patient continues to be delirious and once an improvement in her mentation develops patient will be more suitable to be discharged. #Bilateral eye crusting Nursing notified to moisten and clean bilateral eye crusting every shift No s/s conjunctivitis (no hyperema or erythema of conjunctiva), will continue to monitor FULL CODE DVTP: Heparin SC Problem List: 1. Aspiration pneumonia 2. Dysphagia 3. Malnutrition 4. Vocal cord dysfunction Pain Ratin Pain Location: No Pain Pain Goal: Remain pain free Pain Plan: Tylenol PRN Tomorrow's Labs & Rationales: BEP: Monitor Electrolytes in the setting of tube feeds. Magnesium: Monitor Electrolytes in the setting of tube feeds. Consulting Request: Consulting Specialty: Pulmonary Disease ISIAH ALDRICH,JENNIFER 04/29/16 1205: Attending MD Review Statement Attending Statement Attending MD Statement: examined this patient, discuss w/resident/PA/DIVER'S TENDER, agreed w/resident/PA/DIVER'S TENDER, discussed with family, reviewed EMR data (avail), discussed with nursing, discussed with case mgmt, amended to note Attending Assessment/Plan: Patient seen and examined, still remains confused. She said having difficulty hearing on the left side especially. She is tolerating her tube feeds well. Vital Signs Date Time Temp Pulse Resp B/P Pulse O2 O2 Flow FiO2 Ox Delivery Rate 04/29 0632 97.5 97 20 124/52 92 Room Air 04/29 0000 93 Room Air 04/28 2157 97.6 90 20 120/70 93 04/28 1617 Room Air 3.0L 04/28 1403 98.8 88 20 140/70 95 on exam; awake, remains confused. cv; s1,s2, rrr resp; clear abd; soft, nt, bs+ ext; no edema. Laboratory Tests 04/29 04/28 0508 1412 Chemistry Sodium (137 - 145 mmol/L) 138 Potassium (3.5 - 5.1 mmol/L) 4.4 Chloride (98 - 107 mmol/L) 97 L Carbon Dioxide (22 - 30 mmol/L) 33 H Anion Gap (5 - 16) 7 BUN (7 - 17 mg/dL) 12 Creatinine (0.5 - 1.0 mg/dL) 0.5 Estimated GFR (>60 ml/min) > 60 BUN/Creatinine Ratio (7 - 25 %) 24.0 Ammonia (9 - 30 umol/L) 17 Toxicology Valproic Acid Cancelled A/p; Ms. Leslie is a 70-year-old female with past medical history of hypertension, hyperlipidemia, hypothyroidism and diabetes mellitus who was initially admitted to the ICU for management of strep pneumo meningitis, mastoiditis treated with abx. Course was complicated by seizures, cardiac and respiratory arrest. Stabilized and transferred to [facility]. Has devloped Dysphgia and finally got PEG tube placed. Now able to tolerate tube feeds at its goal. She is still very delirious. We have switched all of her medications to be given via peg. Will call ENT with no difficulty hearing. Continue all current medications. Appreciate neurology input yesterday and a repeat EEG. Per neurology, we will continue both the seizure medications. Patient needs to get some more physical therapy, out of bed to chair. Physical therapy has been ordered. Continue to reorient her more often. I'm hoping that once she is out of bed to chair and able to do more physical therapy, more reorientation patient will hopefully improve her delirium. DVT Px; hep sq Ultimately will need rehab upon discharge.
[2016-04-29 06:32] VITALS: BP 124/52
[2016-04-29 14:53] VITALS: BP 120/70
[2016-04-29 23:22] VITALS: BP 128/78
--- NOTE | 2016-04-30 06:18 | PN- Housestaff ---
RUBEN ALDRICH,[facility] 04/30/16 0617: Subjective Follow-up For: Dysphagia on tube feeds Left vocal cord paralysis Strep pneumo meningitis Mastoiditis Otitis media Subjective: Ms Leslie was seen and examined this morning. She is resting comfortably in bed. She reports no issues overnight. Patient was able to respond to verbal commands. She was able to open her eyes and complain of some eye discomfort. Patient was also delirious thinking that the same question was being asked to her repeatedly. Review of systems from is relatively limited however the patient did deny any fever or chills or the presence of any pain. The patient is scheduled to go in for placement of myringotomy tube today. Review of Systems Constitutional: Reports: see HPI. Denies: chills, diaphoresis, fever. Objective Last 24 Hrs of Vital Signs/I&O Vital Signs Date Time Temp Pulse Resp B/P Pulse O2 O2 Flow FiO2 Ox Delivery Rate 04/30 1414 97.0 96 22 146/90 93 Room Air 04/30 0800 Room Air 04/30 0651 97.9 95 20 130/70 93 Room Air 04/29 2322 97.7 86 20 128/78 94 Room Air 04/29 1453 98.9 88 20 120/70 96 Intake & Output 04/30 1600 08 0800 04/30 0000 Intake Total 680 690 Output Total 1 1 Balance -1 680 689 Intake, IV 10 Intake, Oral 0 Intake, Tube 480 480 Feeding Intake, Tube 200 200 Irrigant Number 1 Bowel Movements Output, Stool 1 Output, Urine 1 Physical Exam General Appearance: Cooperative, No Acute Distress Cardiovascular: Regular Rate, Normal S1, Normal S2 Lungs: Clear to Auscultation Abdomen: Normal Bowel Sounds, Soft, No Tenderness, Abdominal Binder in Place Extremities: No Clubbing, No Edema, Normal Pulses Vascular: Normal Pulses Current Medications: Current Medications Sig/Garrick Start time Last Medication Dose Route Stop Time Status Admin Acetaminophen 650 MG Q6P PRN 04/28 0930 AC PO Albuterol Sulfate 3 ML EVERY 4 HRS/AWAKE .. 04/13 1700 AC 04/13 INH 1530 Heparin Sodium 5,000 UNIT Q8 04/25 1550 AC 04/30 (Porcine) SC 1343 Insulin Aspart 0 Q6 04/27 1800 AC 04/30 SC 1151 Levetiracetam 1,500 MG Q12 04/26 2200 AC 04/30 PEG 0849 Levothyroxine Sodium 0.025 MG DAILY AC 04/28 0731 AC 04/30 PO 0627 Omeprazole 40 MG DAILY AC 04/28 0732 AC 04/29 PO 0532 Patient Medication 1 ED .STK-MED ONE 04/30 1358 [place] Teaching ED 04/30 1359 Polyethylene Glycol 17 GM DAILY PRN 03/31 1215 AC 04/02 PO 0025 Valproic Acid 1,000 MG Q8 04/26 2200 AC 04/30 PO 1426 Last 24 Hrs of Lab/Keaton Results Last 24 Hrs of Labs/Mics: Laboratory Tests 04/30/16 0628: Anion Gap 6, Estimated GFR > 60, BUN/Creatinine Ratio 32.0 H, Magnesium 1.7 Microbiology 04/30 135 BODY FLUID: Body Fluid Culture - COLB 04/30 1350 BODY FLUID: Gram Stain - COLB Assessment/Plan Assessment: Ms. Leslie is a 70-year-old female with past medical history of hypertension, hyperlipidemia, hypothyroidism and diabetes mellitus who presented to the emergency department after being found unresponsive at home. She was initially admitted to the ICU for management of strep pneumo meningitis, which was complicated by seizures, cardiac and respiratory arrest. #Strep pneumo meningitis Mentation seems to be fluctuating we'll continue to monitor and see how the patient responds to feeds from PEG tube. Strep pneumo meningitis was confirmed by CSF culture and blood culture s/p tx with ceftriaxone (stopped on 03/31/2016) and vancomycin intermittently along with IV unasyn. 2x TTEs and one SAMUEL have both been negative for any valvular pathology - currently off of abx. ID input appreciated - watching of of ABX - we will panculture if she becomes febrile once again. #Dysphagia Failed prior swallow eval and could not have a PEG tube insertion secondary to desaturation during procedure Patient is s/p placement of orogastric feeding tube and received oral contrast last night in preparation for PEG tube placement on 04/24/2016 with IR/Anesthesia 04/25/2016 owing to successful insertion of PEG tube on 04/24/2016. The patient was then started on tube feeds as per recommendations from nutrition as tolerating well without any residual. Order had been NPO to NovoLog sliding scale. We'll continue to monitor. Discontinue IVF as patient is tolerating tube feeds well. #Bilateral hearing loss. This morning the patient was taken in for a myringotomy tube placement in the right ear as well as cerumen removal in left ear. Tolerated the procedure well. Follow-up conversation after the procedure with Dr. Sánchez who recommended the patient is to continue with antibiotics drops which were sent up from the OR. In the right ear twice a day for the next 5 days. In the left ear twice a day for the next 3 days. This information was noted in the W 10. Patient has continued to experience worsening hearing loss. Hearing loss seems to be worse on the left-hand side compared to the right. Initial call to Dr. Sánchez this a.m. of ENT to expalin the situation. Will attempt to recall Dr. Sánchez this afternoon and formally ask her to come and evaluate patient's hearing. #Otitis media s/p BL tympanostomy tube placement Continue to follow ENT recommendations Follow ENT recs for possibly right middle ear fluid drainage - off antiobiotics for now Durbin culture if she spikes a fever or shows s/s infectious etiology/leukocytosis #Seizures Continue keppra and depakote PO QD. Requested a call back from Dr Jules regarding the liklelihood of stopping these medications, especially due to EEG no being suggestive of any seizures. Ammonia level:17 Repeat EEG showed: Abnormal EEG to mild background slowing with more pronounced slowing in the left frontal region. No suggested seizure acitivity. EEG consistent with a non-specific encephalopathy. We'll continue all antiepileptic medications. No further episodes of seizure while while on general medicine floor #Acute respiratory failure Resolved, patient s/p intubation while in the ICU She has been weaned off of O2 via nasal cannula and saturating well on RA Provide supplemental O2 as needed to maintain O2 sats >92% #Discharge planning Patient will require STR, likely will be discharged within the next few days if PEG procedure goes as planned Case management aware and bed search under way. Patient continues to be delirious. #Bilateral eye crusting Nursing notified to moisten and clean bilateral eye crusting every shift No s/s conjunctivitis (no hyperema or erythema of conjunctiva), will continue to monitor FULL CODE DVTP: Heparin SC Problem List: 1. S/P tympanic tube insertion 2. Aspiration pneumonia 3. Dysphagia 4. Malnutrition 5. Vocal cord dysfunction 6. Hypothyroidism 7. Pneumococcal meningitis 8. Nonfunctional myringotomy tube Pain Ratin Pain Location: No Pain Reported Pain Goal: Remain pain free Pain Plan: Tylenol PRN Tomorrow's Labs & Rationales: No Labs needed Consulting Request: Consulting Specialty: Pulmonary Disease JENNIFER JOYCE MD 04/30/16 1234: Attending MD Review Statement Attending Statement Attending MD Statement: examined this patient, discuss w/resident/PA/SLUBBER FRAME CHANGER, agreed w/resident/PA/SLUBBER FRAME CHANGER, reviewed EMR data (avail), discussed with nursing, discussed with case mgmt, reviewed images, amended to note Attending Assessment/Plan: Patient seen and examined, remains confused. She is scheduled for the myringotomy today with Dr. Davidson. Vital Signs Date Time Temp Pulse Resp B/P Pulse O2 O2 Flow FiO2 Ox Delivery Rate 04/30 08 Room Air 04/30 0651 97.9 95 20 130/70 93 Room Air 04/29 2322 97.7 86 20 128/78 94 Room Air 04/29 1453 98.9 88 20 120/70 96 on exam; awake, nad. cv; s1,s2, rrr resp; clear abd; soft, nt, bs+ ext; no edema Laboratory Tests 05/01 627 Chemistry Sodium (137 - 145 mmol/L) 135 L Potassium (3.5 - 5.1 mmol/L) 4.8 Chloride (98 - 107 mmol/L) 96 L Carbon Dioxide (22 - 30 mmol/L) 33 H Anion Gap (5 - 16) 6 BUN (7 - 17 mg/dL) 16 Creatinine (0.5 - 1.0 mg/dL) 0.5 Estimated GFR (>60 ml/min) > 60 BUN/Creatinine Ratio (7 - 25 %) 32.0 H Magnesium (1.6 - 2.3 mg/dL) 1.7 A/P; Ms. Leslie is a 70-year-old female with past medical history of hypertension, hyperlipidemia, hypothyroidism and diabetes mellitus who was initially admitted to the ICU for management of strep pneumo meningitis, mastoiditis treated with abx. Course was complicated by seizures, cardiac and respiratory arrest. Stabilized and transferred to [facility]. Has devloped Dysphgia and finally got PEG tube placed. Now able to tolerate tube feeds at its goal. She is still very delirious. We have switched all of her medications to be given via peg. Patient scheduled for myringotomy today. She remains confused and delirious. She is not able to bar despite the physical therapy. All of the medications are given via PEG tube. From medical standpoint we can discharge her if intermediate is able to take her in this condition. DVT Px; hep sq.
[2016-04-30 06:51] VITALS: BP 130/70
--- NOTE | 2016-04-30 09:10 | NUR ---
DURING MULTIDISCIPLINARY ROUNDS, RESIDENT STATED THAT PT WILL BE GOING TO OR WITH ENT FOR TUBE EXCHANGE IN EARS. PRIOR TO THIS NO INFORMATION KNOWN ABOUT PT GOING TO OR. TUBE FEEDING STOPPED. NO RESIDUALS NOTED AT THIS TIME. DR. WOODALL TO CALL ENT MD AND SEE IF PROCEDURE WILL BE DONE AT BEDSIDE OR IN THE OR. WILL HOLD FEEDS UNTIL FURTHER INFORMATION GIVEN.
--- NOTE | 2016-04-30 10:59 | NUR ---
PHYSICAL THERAPY: Pt PRESENTS SLEEPING AND WHEN AROUSED Pt VERY CONFUSED AND LETHARGIC, SHE NOT APPROPRIATE TO BE SEEN BY PT AT THIS TIME. WILL FOLLOW UP WHEN APPROPRIATE. THANK YOU.
--- NOTE | 2016-04-30 12:40 | NUR ---
PT TAKEN VIA STRETCHER TO OR. NO FURTHER MEDS, FLUSH, OR FEED GIVEN SINCE 9AM. ANETHESIA AWARE OF TIMING OF FEED STOPPING. DENTURES AT BEDSIDE. SENT WITH PATIENT TO SIGN CONSENT.
[2016-04-30 14:14] VITALS: BP 146/90
--- NOTE | 2016-04-30 14:15 | Operative Report ---
Operative/Inv Procedure Report Surgery Date: 04/30/16 Name of Procedure: Myringotomy and tube placement, right ear Microscopic Exam with cerumen removal, left ear Pre-Operative Diagnosis: Otitis media with effusion, right ear Cerumen, left ear Post-Operative Diagnosis: Same Estimated Blood Loss: n/a Surgeon/Locomotive Firer/Fireman: JENNIFER JOYCE MD Anesthesia: local 1% lidocaine with 1 100,000 epinephrine, 3 mL injected into the ear canal Drains: Myringotomy tube, right ear Microbiology: Serous middle ear effusion, right ear Complications: None Condition: Stable on leaving the OR Operative Indication: Persistent otitis media with effusion, right ear Cerumen, left ear Operative/Procedure Note Note: Patient was brought to the operating room. Placed on the operating table in supine position. First timeout was performed including patient's name, ID number and planned procedure. At first microscope was brought into the view for microscopic visullization. Patient was sterilely draped. Right ear was visualized under the microscope, canal was cleaned of cerumen. At first local injection was carried. 1% lidocaine with 1 100,000 epinephrine was injected, his were injected. Tympanic membrane was thickened and there is middle ear effusion. Overlying the tympanic membrane was moderately on the tubal ligation at the inferior aspect, 6:00. Myringotomy tube was removed. There was bloody crusting over the tympanic membrane which was removed. Then incision was placed over the posterior inferior quadrant in a radial manner. There is significant anterior bony overhang and incision could not be placed over the anterior inferior quadrant. Middle ear contained copious serous fluid which was suctioned into a suction trap which was then sent for cultures. Adams beveled myringotomy tube was inserted and Floxin drops were applied. Next, left ear was visualized with microscope. Canal was cleaned of cerumen. Tympanic membrane was clear. Myringotomy tube was present in the posterior inferior quadrant. It was surrounded by cerumen. Which was then removed. Myringotomy tube was patent and dry. Middle ear was clear. Floxin drops were applied. Procedure was completed. Patient was taken from the operating room and brought to the floor in good condition. There were no complications. Findings: Middle ear, right-serous effusion Ear canal, left-cerumen Discharge Disposition: back to the floor CC: JENNIFER JOYCE MD
[2016-04-30] MEDS ORDERED: LOSARTAN POTASS50 M1 PO (14:57)
[2016-04-30 15:53] VITALS: BP 146/90
--- NOTE | 2016-04-30 20:13 | Event Note ---
Event Note Event Note: updated the snf regatrding the Novolin SC. Recommended to Stop the novolog that patient was discharged on.
== END 2016-04-30 16:43 | DRG 853 ==
LOC: ENRESERVTM → ENRESERVDT → ERH 09:52 → ENPENDDIS 13:35 → DELPENDDIS 13:35 → CRI 13:35 → ERHI 13:35 → 2NA 13:35 → 1NO 13:35 → CRI 18:27 → 1NO 04-15 22:22 → 2NB 04-16 20:43 → 1NO 04-17 11:36 → 2NA 04-24 18:45
PROVIDERS: Dermatology; Internal Medicine; Internal Medicine Cardiovascular Disease; Physician Assistant; Preventive Medicine Public Health & General Preventive Medicine; Student in an Organized Health Care Education/Training Program; ADMIT Internal Medicine Pulmonary Disease
PROC: 009U3ZX Drainage of Spinal Canal, Percutaneous Approach, Diagnostic (ICD-10-PCS; principal; 2016-03-17)
PROC: 5A1955Z Respiratory Ventilation, Greater than 96 Consecutive Hours (ICD-10-PCS; 2016-03-25)
PROC: B246ZZ4 Ultrasonography of Right and Left Heart, Transesophageal (ICD-10-PCS; 2016-03-28)
PROC: 099500Z Drainage of Right Middle Ear with Drainage Device, Open Approach (ICD-10-PCS; 2016-04-03)
PROC: 099600Z Drainage of Left Middle Ear with Drainage Device, Open Approach (ICD-10-PCS; 2016-04-03)
PROC: 0DH63UZ Insertion of Feeding Device into Stomach, Percutaneous Approach (ICD-10-PCS; 2016-04-11)
PROC: 3E0G76Z Introduction of Nutritional Substance into Upper GI, Via Natural or Artificial Opening (ICD-10-PCS; 2016-04-11)
PROC: 0DB68ZX Excision of Stomach, Via Natural or Artificial Opening Endoscopic, Diagnostic (ICD-10-PCS; 2016-04-17)
PROC: 099600Z Drainage of Left Middle Ear with Drainage Device, Open Approach (ICD-10-PCS; 2016-04-30)
PROC: 099500Z Drainage of Right Middle Ear with Drainage Device, Open Approach (ICD-10-PCS; 2016-04-30)
PROC: 0BH17EZ Insertion of Endotracheal Airway into Trachea, Via Natural or Artificial Opening (ICD-10-PCS; 2016-04-30)
DX: A41.9 Sepsis, unspecified organism (principal); J69.0 Pneumonitis due to inhalation of food and vomit; J96.90 Respiratory failure, unspecified, unspecified whether with hypoxia or hypercapnia; R65.21 Severe sepsis with septic shock; G04.90 Encephalitis and encephalomyelitis, unspecified; E87.2 Acidosis; G00.1 Pneumococcal meningitis; G92 Toxic encephalopathy; J38.01 Paralysis of vocal cords and larynx, unilateral; I46.9 Cardiac arrest, cause unspecified; E46 Unspecified protein-calorie malnutrition; G40.909 Epilepsy, unspecified, not intractable, without status epilepticus; H66.92 Otitis media, unspecified, left ear; D64.9 Anemia, unspecified; I10 Essential (primary) hypertension; E78.5 Hyperlipidemia, unspecified; E03.9 Hypothyroidism, unspecified; E11.9 Type 2 diabetes mellitus without complications; Z79.84 Long term (current) use of oral hypoglycemic drugs
CPT/HCPCS: 1NP; 1NSP; 2NBP; 6020; 6030; 70552; 84133; 84300; 87070; 87075; 87184; 87205; 87529; CCU; 36415; 70553; 74000; 74176; 74230; 77002; 81001; 82436; 82570; 86920; 87040; 87071; 87086; 87147; 87450; 87804; 87804-59; 88305; 88312; 93005; 93010; 93306; 93325; 94799; 95816; 96361; 96374; 96375; 97002-GP; 97110-GO; 97112-GO; 97162-GP; 97167-GO; 97530-GO; 99291; A9579; C1769; G0378; J0131; J0290; J0360; J0690; J0696; J1100; J1610; J1644; J1815; J1940; J1953; J2060; J2250; J2270; J2310; J2920; J3370; J3490; J7040; J7042; J7060; P9016

== ENCOUNTER 2017-05-14 15:18 | Inpatient (IN) | payer OTHER ==
[~2017-05-14] VITALS: Ht 165.1 cm; Wt 70.6 kg
[~2017-05-14 15:18] MED LIST: ALBUTEROL2.5 MG/3 M INH; ASPIRIN EC81 M1 PO; ATORVASTATIN CA10 M1 G TUBE; HUMALOG MI100 UNIT/3; KEPPRA100 MG/1 M G TUBE; LEVOTHYROXINE25 MCG PO; LOSARTAN POTAS100 M1 G TUBE; LOSARTAN POTASS50 M1 PO; METFORMIN HCL1000 M1 PO; MIRALAX119 GM G TUBE; OMEPRAZOLE40 M1 G TUBE; VALPROIC A250 MG/51 G TUBE
--- NOTE | 2017-05-14 15:26 | ED GENERAL ADULT ---
History of Present Illness General Chief Complaint: Seizure Stated Complaint: SEIZURE Source: patient, family Exam Limitations: poor historian Vital Signs & Intake/Output Vital Signs & Intake/Output Vital Signs Date Time Temp Pulse Resp B/P B/P Pulse O2 O2 Flow FiO2 Mean Ox Delivery Rate 05/14 1840 96.5 102 20 175/65 100 Nasal 2.0L Cannula 05/14 1708 96.8 72 20 152/75 97 Room Air 05/14 1526 97.7 93 18 167/81 99 Room Air Room Air Allergies Coded Allergies: Sulfa (Sulfonamide Antibiotics) (Intermediate, TURNS RED 03/17/16) Reconcile Medications Aspirin (Aspirin*) 81 MG TAB.CHEW 1 TAB PO DAILY HEART HEALTH (Reported) Atorvastatin Calcium 10 MG TABLET 1 TAB G TUBE DAILY CHOLESTEROL (Reported) Calcium Carbonate/Vitamin D3 (Calcium 500-Vit D3 600 Caplet) 500 MG-600 TABLET 1 TAB PO DAILY VITAMIN SUPPORT (Reported) Cholecalciferol (Vitamin D3) 1,000 UNIT TABLET 1 TAB PO DAILY VITAMIN SUPPORT (Reported) Clotrimazole 1 % CREAM..G. 1 SULEMAN TOP BID FEET (Reported) Cyanocobalamin (Vitamin B-12) 1,000 MCG TABLET 1 TAB PO DAILY VITAMIN SUPPORT (Reported) Docusate Sodium (Stool Softener) 100 MG CAPSULE 1 CAP PO DAILY NEEDED PRN CONSTIPATION (Reported) Fluticasone Propionate 50 MCG/ACTUATION SPRAY.SUSP 2 SPRAY NASB DAILY ALLERGIES (Reported) Insulin Glargine,Hum.rec.anlog (Lantus Solostar) 100 UNIT/ML (3 ML) INSULN.PEN 14 UNIT SC QPM DIABETES (Reported) Levetiracetam (Keppra) 750 MG TABLET 1 TAB PO BID SEIZURES (Reported) Levothyroxine Sodium 25 MCG TABLET 1 TAB G TUBE DAILY AC THYROID (Reported) Losartan Potassium 100 MG TABLET 1 TAB PO DAILY HEART (Reported) Metformin HCl 1,000 MG TABLET 0.5 TAB PO BID DIABETES (Reported) Polyethylene Glycol 3350 (Miralax) 17 GRAM/DOSE POWDER 17 GM G TUBE DAILY PRN CONSTIPATION Triage Nurses Notes Reviewed? yes Onset: Abrupt Duration: hour(s): Timing: recent history HPI: 05/14/17 6:31 PM 71-year-old female presents to the emergency department for seizures. The patient has a past medical history of seizure disorder according to the she had an ear infection that developed into meningitis and she subsequently developed seizures. She has been started on Keppra and this has been tapered down by Dr. Santos. Today she was at home, and she developed shaking of the right upper extremity and the right foot, she remained awake and alert and the actually gave her a Keppra tablet; as she had forgotten to take it today. In the ED on arrival she was awake and alert. 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 There was no weakness to the left upper extremity, or to the lower extremities. Past History Travel History Traveled to [place] past 21 day No Medical History Any Pertinent Medical History? 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 benign) Psychosocial History Who do you live with Family Services at Home None What is your primary language Occitan Family History Family History, If Any: Relation not specified for: Family history unobtainable Hx Contributory? No Review of Systems Review of Systems Constitutional: Denies: fever. EENTM: Denies: visual changes. Respiratory: Denies: short of breath. Cardiovascular: Denies: chest pain. GI: Denies: abdominal pain. Genitourinary: Reports: no symptoms. Musculoskeletal: Reports: no symptoms. Skin: Denies: rash. Neurological/Psychological: Reports: tremors, weakness. Hematologic/Endocrine: Denies: bruising, bleeding. Physical Exam Physical Exam General Appearance: alert, awake, anxious, moderate distress Head: atraumatic, normal appearance Eyes: Bilateral: normal appearance, PERRL, EOMI. Ears, Nose, Throat: normal pharynx, normal ENT inspection Neck: normal inspection, supple Respiratory: normal breath sounds, chest non-tender, no respiratory distress Cardiovascular: regular rate/rhythm Peripheral Pulses: 4+ radial (R), 4+ radial (L) Gastrointestinal: non-tender Back: decreased range of motion Extremities: no edema Neurologic/Psych: awake, alert, oriented x 3, RIGHT UPPER EXTREMITY WEAKNESS WITH REPETITIVE TREMORS Skin: intact, normal color, warm/dry Core Measures ACS in differential dx? No CVA/TIA Diagnosis: No Sepsis Present: No Sepsis Focused Exam Completed? No Progress Differential Diagnoses I considered the following diagnoses in my evaluation of the patient: [CVA, TIA, seizure, meningitis, intracranial bleed, adverse drug reaction,] Plan of Care: Orders Procedure Date/time Status Patient Data 05/14 2016 Active Admit to inpatient 05/15 2011 Active Add-on Test (ER Only) 05/14 1953 Active URINE DRUGS OF ABUSE 05/14 1952 Active URINALYSIS 05/14 1952 Complete THYROID STIMULATING HORMONE 05/14 163 Active TROPONIN LEVEL 05/14 1635 Active FREE T4 05/14 1635 Active EKG 05/14 155 Active Saline Lock 05/14 1558 Active COMPREHENSIVE METABOLIC PANEL 05/14 1558 Active CBC WITHOUT DIFFERENTIAL 05/14 1558 Complete EKG 05/14 1558 Active Laboratory Tests 05/14/17 2000: Urine Opiates Screen Pending, Methadone Screen Pending, Barbiturate Screen Pending, Ur Phencyclidine Scrn Pending, Amphetamines Screen Pending, U Benzodiazepines Scrn Pending, Urine Cocaine Screen Pending, Urine Cannabis Screen Pending, Urine Color YEL, Urine Clarity HAZY H, Urine pH 6.0, Ur Specific [place] 1.010, Urine Protein NEG, Urine Ketones NEG, Urine Nitrite NEG, Urine Bilirubin NEG, Urine Urobilinogen 0.2, Ur Leukocyte Esterase MOD H, Ur Microscopic SEDIMENT EXAMINED, Urine RBC RARE, Urine WBC 10-15 H, Ur Epithelial Cells MOD H, Urine Bacteria FEW H, Urine Mucus RARE, Urine Hemoglobin TRACE- LYSED, Urine Glucose >=1000 H 05/14/17 1635: Anion Gap 13, Estimated GFR > 60, BUN/Creatinine Ratio 28.3 H, Glucose 271 H, Calcium 9.6, Total Bilirubin 0.5, AST 13 L, ALT 26, Alkaline Phosphatase 59, Troponin I < 0.01, Total Protein 6.9, Albumin 4.2, Globulin 2.7, Albumin/ Globulin Ratio 1.6, TSH Pending, Free T4 1.05, CBC w Diff NO MAN DIFF REQ, RBC 4.28, MCV 88.2, MCH 29.0, MCHC 32.9 L, RDW 13.5, MPV 10.1, Gran % 69.2, Lymphocytes % 21.2, Monocytes % 8.8, Eosinophils % 0.4, Basophils % 0.4, Absolute Granulocytes 6.0, Absolute Lymphocytes 1.8, Absolute Monocytes 0.8 H, Absolute Eosinophils 0, Absolute Basophils 0 Initial ED EKG: NSR Departure Departure Disposition: STILL A PATIENT Condition: Stable Clinical Impression Primary Impression: Status epilepticus Referrals: Alexa Key MD (PCP/Family) Departure Forms: Customer Survey General Discharge Information Comments Chest x-ray was negative Head CT was negative Labs essentially unremarkable Neurological consultation was obtained, the case was discussed with Dr. Jules. He agreed with the plan of care, IV Keppra increased to thousand twice a day. 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 The patient had a second generalized seizure in the ED, again with repetitive shaking, altered mental status. This resolved with IV Ativan. She was subsequently admitted to the ICU for further care. Admission Note [facility]: [facility] Documentation of Exam: Documentation of any treatments & extenuating circumstances including Concerns Regarding Discharge (functional status, medication knowledge or non-compliance, living conditions, etc.) that warrant an admission rather than observation: [ Neurochecks every 6 hours, IV anticonvulsives, neurology consultation, pulse oximetry monitoring, cardiac monitoring] Critical Care Note Critical Care Note Critical Care Time: 30-74 min
[2017-05-14] MEDS ORDERED: METFORMIN HCL1000 M1 PO (15:35)
[2017-05-14] MEDS ORDERED: LOSARTAN POTAS100 M1 PO (15:36)
[2017-05-14] MEDS ORDERED: KEPPRA750 M1 PO (15:36)
[2017-05-14] MEDS ORDERED: LANTUS SOL100 UNIT/1 SC (15:36)
[2017-05-14] MEDS ORDERED: ASPIRIN81 M4 PO (15:37)
[2017-05-14] MEDS ORDERED: FLUTICASONE PRO16 GM NASB (15:38)
[2017-05-14] MEDS ORDERED: VITAMIN B-121000 MC3 PO (15:38)
[2017-05-14] MEDS ORDERED: CLOTRIMAZOLE15 GM TOP (15:38)
[2017-05-14] MEDS ORDERED: VITAMIN D31000 UNI2 PO (15:38)
[2017-05-14] MEDS ORDERED: STOOL SOFTENER100 M3 PO (15:40)
[2017-05-14] MEDS ORDERED: CALCIUM 500-VI1 EAC1 PO (15:40)
--- NOTE | 2017-05-14 16:34 | CT SCAN REPORT ---
EXAMINATION: CT HEAD WITHOUT CONTRAST CLINICAL INFORMATION: Altered mental status. Right arm weakness. CVA. COMPARISON: Head CT 03/24/2016. TECHNIQUE: Contiguous axial imaging was performed from the skull base to vertex without intravenous administration of contrast. DLP: 538 mGy-cm FINDINGS: There is no intracranial hemorrhage, mass, extra-axial collection, or CT evidence of large territory infarction. 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 The ventricles are normal in size and configuration without evidence of hydrocephalus. The visualized paranasal sinuses and mastoid air cells are clear. There are severe degenerative changes of the right temporomandibular joint. There are atheromatous calcifications at the carotid siphons. IMPRESSION: No acute intracranial abnormality identified.
[2017-05-14 17:11] LABS: ABSOLUTE BASOPHIL COUNT 0 /CUMM (0.0-0.2); ABSOLUTE EOSINOPHIL COUNT 0 /CUMM (0.0-0.7); ABSOLUTE LYMPH COUNT 1.8 /CUMM (1.2-3.4); ABSOLUTE MONOCYTE COUNT 0.8 /CUMM (0.10-0.60); BASOPHIL % 0.4 % (0.0-2.0); EOSINOPHIL % 0.4 % (0-5); GRANULOCYTE % 69.2 % (42.2-75.2); HEMATOCRIT 37.7 % (37-47); MEAN CORPUSCULAR HGB CONC 32.9 G/DL (33.0-37.0); MEAN CORPUSCULAR VOLUME 88.2 FL (81.0-99.0); MEAN PLATELET VOLUME 10.1 FL (7.4-10.4); PLATELET COUNT 227 /CUMM (130-400); RBC DISTRIBUTION WIDTH 13.5 % (11.5-14.5); RED BLOOD CELL CT 4.28 /CUMM (4.20-5.40); WHITE BLOOD CELL COUNT 8.7 /CUMM (4.8-10.8)
--- NOTE | 2017-05-14 20:30 | RADIOLOGY REPORT ---
EXAMINATION: XR PORTABLE CHEST CLINICAL INFORMATION: Seizure, rule out aspiration COMPARISON: 04/24/2016 TECHNIQUE: Portable frontal view of the chest was obtained. FINDINGS: No evidence for infiltrate in this portable study. Lung chambers are grossly clear. There is no effusion. No failure. IMPRESSION: Negative acute portable chest
--- NOTE | 2017-05-14 22:19 | History & Physical ---
Cristobal ALDRICH,Raimundo 05/14/17 3838: General Information and HPI History of Present Illness: 71-year-old woman with past medical history significant for strep pneumo meningitis with residual seizure activity brought in by ambulance for evaluation of seizure activity. Patient reports waking in her normal state of health today when she was preparing for a family member to come visit today when she lost track of time and forgot to take her medications including her Keppra. She states that she was sitting on the couch watching television when she suddenly developed this "weird feeling" and subsequently had a "seizure". Her and son were present during the episode and state that it lasted "a long time" and was still persisting of the time EMS arrived. Patient states that she was aware during the whole time and never lost consciousness and was in fact talking but had no control over her body. She did not hit her head, bite her tongue, or become incontinent of urine or stool. Presently she states that she feels well but is a little bit weak and shaken from the episode. He does admit to some right arm weakness and persistent chronic cough due to vocal cord dysfunction. Review of systems She denies any headache, fever, chills, lightheadedness/dizziness, blurred/ double vision, numbness/tingling, chest pain, palpitations, heartburn, shortness of breath, nausea, vomiting, diarrhea. Social history Patient denies smoking cigarettes or using recreational drugs. Very rarely does she consume alcohol. She ambulates with assistance of a rolling walker and denies any recent falls. Otherwise independent in all ADLs/IADLs including medication administration. Allergies/Medications Allergies: Coded Allergies: Sulfa (Sulfonamide Antibiotics) (Intermediate, TURNS RED 03/17/16) Home Med list Aspirin (Aspirin*) 81 MG TAB.CHEW 1 TAB PO DAILY HEART HEALTH (Reported) Atorvastatin Calcium 10 MG TABLET 1 TAB G TUBE DAILY CHOLESTEROL (Reported) Calcium Carbonate/Vitamin D3 (Calcium 500-Vit D3 600 Caplet) 500 MG-600 TABLET 1 TAB PO DAILY VITAMIN SUPPORT (Reported) Cholecalciferol (Vitamin D3) 1,000 UNIT TABLET 1 TAB PO DAILY VITAMIN SUPPORT (Reported) Clotrimazole 1 % CREAM..G. 1 SULEMAN TOP BID FEET (Reported) Cyanocobalamin (Vitamin B-12) 1,000 MCG TABLET 1 TAB PO DAILY VITAMIN SUPPORT (Reported) Docusate Sodium (Stool Softener) 100 MG CAPSULE 1 CAP PO DAILY NEEDED PRN CONSTIPATION (Reported) Fluticasone Propionate 50 MCG/ACTUATION SPRAY.SUSP 2 SPRAY NASB DAILY ALLERGIES (Reported) Insulin Glargine,Hum.rec.anlog (Lantus Solostar) 100 UNIT/ML (3 ML) INSULN.PEN 14 UNIT SC QPM DIABETES (Reported) Levetiracetam (Keppra) 750 MG TABLET 1 TAB PO BID SEIZURES (Reported) Levothyroxine Sodium 25 MCG TABLET 1 TAB G TUBE DAILY AC THYROID (Reported) Losartan Potassium 100 MG TABLET 1 TAB PO DAILY HEART (Reported) Metformin HCl 1,000 MG TABLET 0.5 TAB PO BID DIABETES (Reported) Polyethylene Glycol 3350 (Miralax) 17 GRAM/DOSE POWDER 17 GM G TUBE DAILY PRN CONSTIPATION Past History Travel History Traveled to [place] past 21 day No Medical History Neurological: meningitis (this admission/left otitis), seizure EENT: Left VC paralysis Cardiovascular: hypertension, hyperlipidemia, CAC this admission Respiratory: NONE Gastrointestinal: NONE Hepatic: NONE Renal: NONE Musculoskeletal: NONE Psychiatric: NONE Endocrine: diabetes, hypothyroidism, obesity Blood Disorders: NONE Cancer(s): NONE 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 benign) Past Family/Social History Family History Relations & Conditions if any Relation not specified for: Family history unobtainable Psychosocial History Who Do You Live With? spouse Services at Home: None Primary Language: Burmese Living Will? unknown Power of Wire Stockkeeper/HCP? unknown Functional Ability ADLs Unknown: dressing, eating, toileting, bathing. Ambulation: independent (? prior to admit) IADLs Unknown: shopping, housework, finances, food prep, telephone, transportation, medication admin. Review of Systems Review of Systems Constitutional: Reports: see HPI. Exam & Diagnostic Data Last 24 Hrs of Vital Signs/I&O Vital Signs Date Time Temp Pulse Resp B/P B/P Pulse O2 O2 Flow FiO2 Mean Ox Delivery Rate 05/14 2149 Nasal 2.0L Cannula 05/14 2053 97.4 86 16 106/65 97 Nasal 2.0L Cannula 05/14 1840 96.5 102 20 175/65 100 Nasal 2.0L Cannula 05/148 96.8 72 20 152/75 97 Room Air 05/14 1526 97.7 93 18 167/81 99 Room Air Room Air Intake & Output 05/14 1600 05/14 0800 05/14 0000 Intake Total 0 Output Total 0 Balance 0 Intake, Oral 0 Output, Urine 0 Patient 71.668 kg Weight Weight Reported by Patient Measurement Method Physical Exam General Appearance Alert, Oriented X3, Cooperative, No Acute Distress Skin No Rashes, No Breakdown, No Significant Lesion Skin Temp/Moisture Exam: Warm/Dry Sepsis Skin Exam (color): Normal for Ethnicity HEENT Atraumatic, PERRLA, EOMI, Mucous Membr. moist/pink Neck Supple, No JVD Cardiovascular Regular Rate, Normal S1, Normal S2 Lungs Normal Air Movement, Loud audible stridor Abdomen Normal Bowel Sounds, Soft, No Tenderness, No Hepatospenomegaly, No Masses Neurological Normal Gait, Normal Speech, Strength at 5/5 X4 Ext, Normal Tone, Sensation Intact, Cranial Nerves 3-12 NL Extremities No Clubbing, No Cyanosis, No Edema, Normal Pulses, No Tenderness/ Swelling Last 24 Hrs of Labs/[place]: Laboratory Tests 05/14/17 2000: Urine Opiates Screen < 100, Methadone Screen < 40, Barbiturate Screen < 60, Ur Phencyclidine Scrn < 6.00, Amphetamines Screen < 100, U Benzodiazepines Scrn < 85, Urine Cocaine Screen < 50, Urine Cannabis Screen < 5.00, Urine Color YEL, Urine Clarity HAZY H, Urine pH 6.0, Ur Specific [place] 1.010, Urine Protein NEG, Urine Ketones NEG, Urine Nitrite NEG, Urine Bilirubin NEG, Urine Urobilinogen 0.2, Ur Leukocyte Esterase MOD H, Ur Microscopic SEDIMENT EXAMINED , Urine RBC RARE, Urine WBC 10-15 H, Ur Epithelial Cells MOD H, Urine Bacteria FEW H, Urine Mucus RARE, Urine Hemoglobin TRACE-LYSED, Urine Glucose >=1000 H 05/14/17 1635: Anion Gap 13, Estimated GFR > 60, BUN/Creatinine Ratio 28.3 H, Glucose 271 H, Calcium 9.6, Total Bilirubin 0.5, AST 13 L, ALT 26, Alkaline Phosphatase 59, Troponin I < 0.01, Total Protein 6.9, Albumin 4.2, Globulin 2.7, Albumin/ Globulin Ratio 1.6, TSH 2.050, Free T4 1.05, CBC w Diff NO MAN DIFF REQ, RBC 4.28, MCV 88.2, MCH 29.0, MCHC 32.9 L, RDW 13.5, MPV 10.1, Gran % 69.2, Lymphocytes % 21.2, Monocytes % 8.8, Eosinophils % 0.4, Basophils % 0.4, Absolute Granulocytes 6.0, Absolute Lymphocytes 1.8, Absolute Monocytes 0.8 H, Absolute Eosinophils 0, Absolute Basophils 0 Assessment/Plan Assessment: 71 year old woman with multiple medical problems significant for strep pneumo meningitis with residual seizures on keppra seen for evaluation of a prolonged seizure episode at home after missing her morning medications. ED course -Vitals: Temp 96.5-97.7, HR 72-102, RR 18-20, SBP 152-175, O2 97-100% on 2.0 L via nasal cannula -CBC: WBC 8.7, hemoglobin 12.4, hematocrit 37.7, platelet 227 -BMP: Sodium 140, potassium 3.9, chloride 100, CO2 28, urea 17, creatinine 0.6, anion gap 13, glucose 271 -LFT: AST 13, ALT 26, ALP 59, total bilirubin 0.5 -Miscellaneous: Troponin I <0.01, TSH 2.050, free T4 1 0.05 -Urine toxicology: Unremarkable -Urinalysis: Moderate leukocyte Estrace with negative nitrate, moderate epithelial cells with 10-15 WBC, glucose >1000 -CT head without IV contrast: No acute intracranial abnormality -CXR: Negative acute portable chest -EKG: Normal sinus rhythm, HR 70, MO 192, QTC 467 -ED interventions: * Keppra 500 mg IV 2 * Ativan 1 mg IV 2 Clinically it appears that the patient had a seizure at home today due to medication noncompliance. She reportedly had an EEG in the office of her neurologist Dr. Raymond Santos recently that still demonstrated "something"; records are unavailable. She is to be continued on intravenous Keppra with seizure/aspiration precautions and neuro checks overnight with repeat EEG and neurology evaluation to occur tomorrow morning. Problem List -Seizure activity, likely due to missed medication dose -Insulin-dependent diabetes mellitus -History of Strep Pneumo meningitis with residual seizures -Hypothyroidism -Hypertension -Hyperlipidemia Plan -Admit to ICU -Aspiration / Seizure precautions -Telemetry monitoring -Neurochecks -TRC with Nebs PRN -Supplemental oxygen, goal > 92%, taper as tolerated -Accuchecks Q6H with Novolin SSI -D5 1/2 NS @ 75mL/hr while NPO -Keppra 1,000 mg IV BID -Hold lantus, restart when eating -Neurology consult for seizure activity, place in morning -Repeat EEG -Pain control with acetaminophen -NPO overnight -DVT PPx with lovenox -FULL CODE As Ranked By This Provider Problem List: 1. Seizures Core Measures/Misc (11/09) Acute Coronary Syndrome ACS Diagnosis: No Congestive Heart Failure Congestive Heart Failure Diagnosis No Cerebrovascular Accident CVA/TIA Diagnosis: No VTE (View Protocol) VTE Risk Factors Age>40 No Mechanical VTE Prophylaxis d/t N/A MechProphylax Ordered No VTE Pharm Prophylaxis d/t NA PharmProphylax ordered Sepsis (View protocol) Sepsis Present: No Alexandr ALDRICH, [facility] 05/15/17 0233: Attending MD Review Statement Attending Statement Attending MD Statement: examined this patient, discuss w/resident/PA/[employer] TEAM MEMBER, agreed w/resident/PA/[employer] TEAM MEMBER, discussed with family, reviewed images, amended to note Attending Assessment/Plan: 71 yo F with h/o HTN, hypothyroidism, DM, admitted Feb 2016 at [place] for strep pneumo meningitis, otitis media s/p tympanostomy tube, with hospital course c/b cardiopulmonary arrest requiring intubation and CPR, aspiration pneumonia and new onset seizures maintained on Keppra. She was brought in from home today after a witnessed seizure episode. reports that patient was watching TV around 2 pm, when she yelled out to him, and was noted to have severe twitching of her right side. Patient forgot to take her morning dose of keppra. gave it to her as soon as she started having a seizure activity and called 911. The episode lasted quite long as it was ongoing even when EMS arrived and put her in the ambulance. Patient follows with Dr. Santos for her seizures, was previously on 1500 mg BID dosing. She saw Dr. Santos 2 months ago, had an EEG done and was asked to reduce dose to 750 mg BID. She has had no other seizure episode since last admission until today. On ER arrival, she was more awake and alert. While in the ER, around 6.30 pm, she had an episode of seizure seizing with eyes closed, ativan given with good effect. Currently, she feels weak to the right arm but it seems to be improving since the episode. Vitals stable. Exam awake, lethargic but responds to questions appropriately, oriented. Neuro: right upper extremity 4/5, compared to 5/5 all other extremities. No visible tremors. LE: no edema. Otoscopic exam: b/l tympanostomy tubes visible, cerumen+. Labs: no leukocytosis, glucose 271, LFTs normal, trop neg. TSH, free T4 normal. UA neg. Utox neg. 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 Paranasal sinus and mastoid air cells are clear. CXR: negative. EKG: sinus rhythm, no acute changes. Assessment and plan: 1. Breakthrough seizures due to medication noncompliance 2. Milton's paralysis resolving 3. Diabetes mellitus on insulin 4. Previous strep pneumo meningitis c/b seizures 5. Chronic cough from vocal cord dysfunction - Admit to ICU - Vitals Q 1 hour - Neurochecks Q1 - NPO for now - Seizure and fall precautions - IV keppra 1000 mg BID - EEG - Neuro consult - Gentle hydration - Accucheks, insulin NPO SS - Resume lantus at half home dose (7 units daily) - Hold metformin. - Obtain records of most recent EEG from Dr. Santos's office (Feb 2017) - Resume aspirin, statin, losartan, levothyroxine - [facility] consult - PT eval patient walks with a walker/cane at home DVT ppx Lovenox. Full code. TTS > 55 mins
--- NOTE | 2017-05-15 01:24 | Admission Certification ---
Admission Certification Certification Statement - As attending physician, I certify that at the time of - admission, based on clinical presentation, severity of - symptoms, need for further diagnostic testing and - therapeutic interventions, and risk of adverse outcomes - without in-hospital treatment, in my clinical assessment, - this patient requires an acute hospital stay for a minimum - of two nights or longer. I have also considered psychsocial - factors such as support system, advanced age, financial - issues, cognitive issues, and failed out-patient treatments, - past re-admission history, safety of patient, and lack of - compliance as applicable. Specific rationale supporting this admission is: Breakthrough seizures, noncompliance with meds.
[2017-05-15 05:11] LABS: ABSOLUTE BASOPHIL COUNT 0 /CUMM (0.0-0.2); ABSOLUTE EOSINOPHIL COUNT 0.1 /CUMM (0.0-0.7); ABSOLUTE GRANULOCYTE CT 6.2 /CUMM (1.4-6.5); ABSOLUTE LYMPH COUNT 2.6 /CUMM (1.2-3.4); ABSOLUTE MONOCYTE COUNT 0.9 /CUMM (0.10-0.60); BASOPHIL % 0.4 % (0.0-2.0); EOSINOPHIL % 0.6 % (0-5); GRANULOCYTE % 63.4 % (42.2-75.2); MEAN CORPUSCULAR HGB 29.1 PG (27.0-31.0); MEAN CORPUSCULAR HGB CONC 33.1 G/DL (33.0-37.0); MEAN CORPUSCULAR VOLUME 88.1 FL (81.0-99.0); MEAN PLATELET VOLUME 9.8 FL (7.4-10.4); PLATELET COUNT 212 /CUMM (130-400); RBC DISTRIBUTION WIDTH 13.3 % (11.5-14.5); RED BLOOD CELL CT 3.97 /CUMM (4.20-5.40); WHITE BLOOD CELL COUNT 9.8 /CUMM (4.8-10.8)
--- NOTE | 2017-05-15 07:28 | Cons- CRCU ---
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 Patient reports waking in her normal state of health today when she was preparing for a family member to come visit yesterday when she lost track of time and forgot to take her medications including her Keppra. She states that she was sitting on the couch watching television when she suddenly developed this "weird feeling" and subsequently had a "seizure". Her and son were present during the episode and state that it lasted "a long time" and was still persisting of the time EMS arrived. Patient states that she was aware during the whole time and never lost consciousness and was in fact talking but had no control over her body. She did not hit her head, bite her tongue, or become incontinent of urine or stool. Presently she states that she feels well but is a little bit weak and shaken from the episode. He does admit to some right HAND weakness and persistent chronic cough due to vocal cord dysfunction. She has hearing difficulty which is chronic. Patient denies any slurring of speech, vision changes, dizziness, incontinence, loss of sensation. Allergies/Medications Allergies: Coded Allergies: Sulfa (Sulfonamide Antibiotics) (Intermediate, TURNS RED 03/17/16) Home Med List: Aspirin (Aspirin*) 81 MG TAB.CHEW 1 TAB PO DAILY HEART HEALTH (Reported) Atorvastatin Calcium 10 MG TABLET 1 TAB G TUBE DAILY CHOLESTEROL (Reported) Calcium Carbonate/Vitamin D3 (Calcium 500-Vit D3 600 Caplet) 500 MG-600 TABLET 1 TAB PO DAILY VITAMIN SUPPORT (Reported) Cholecalciferol (Vitamin D3) 1,000 UNIT TABLET 1 TAB PO DAILY VITAMIN SUPPORT (Reported) Clotrimazole 1 % CREAM..G. 1 SULEMAN TOP BID FEET (Reported) Cyanocobalamin (Vitamin B-12) 1,000 MCG TABLET 1 TAB PO DAILY VITAMIN SUPPORT (Reported) Docusate Sodium (Stool Softener) 100 MG CAPSULE 1 CAP PO DAILY NEEDED PRN CONSTIPATION (Reported) Fluticasone Propionate 50 MCG/ACTUATION SPRAY.SUSP 2 SPRAY NASB DAILY ALLERGIES (Reported) Insulin Glargine,Hum.rec.anlog (Lantus Solostar) 100 UNIT/ML (3 ML) INSULN.PEN 14 UNIT SC QPM DIABETES (Reported) Levetiracetam (Keppra) 750 MG TABLET 1 TAB PO BID SEIZURES (Reported) Levothyroxine Sodium 25 MCG TABLET 1 TAB G TUBE DAILY AC THYROID (Reported) Losartan Potassium 100 MG TABLET 1 TAB PO DAILY HEART (Reported) Metformin HCl 1,000 MG TABLET 0.5 TAB PO BID DIABETES (Reported) Polyethylene Glycol 3350 (Miralax) 17 GRAM/DOSE POWDER 17 GM G TUBE DAILY PRN CONSTIPATION Current Medications: Current Medications Sig/Garrick Start time Last Medication Dose Route Stop Time Status Admin Acetaminophen 1,000 MG Q6P PRN 05/14 2230 AC IV Aspirin 81 MG DAILY 05/15 1000 AC 05/15 PO 0918 Atorvastatin Calcium 10 MG DAILY 05/15 1000 AC 05/15 PO 0918 Calcium Carbonate 500 MG DAILY 05/15 1000 AC 05/15 PO 0918 Cholecalciferol 1,000 IU DAILY 05/15 1000 AC 05/15 PO 0918 Clotrimazole 1 SULEMAN BID 05/15 1000 AC 05/15 TOP 0918 Cyanocobalamin 1,000 MCG DAILY 05/15 1000 AC 05/15 PO 0918 Docusate Sodium 100 MG DAILY NEEDED PRN 05/14 2300 AC PO Enoxaparin Sodium 40 MG DAILY 05/15 1000 AC 05/15 SC 0918 Fluticasone 2 SPRAY DAILY 05/15 1000 AC Propionate MUMTAZ Insulin Detemir 7 UNITS QPM 05/15 2200 AC SC Insulin Human Regular 0 Q6 05/14 2359 AC 05/15 SC 0520 Levetiracetam 1,000 MG Q12 05/15 1000 AC N/A 1 UNIT IV Levetiracetam 500 MG STAT STA 05/14 2012 DC 05/14 N/A 1 UNIT IV 05/14 Levetiracetam 1,000 MG STAT STA 05/14 1926 CAN N/A 1 UNIT IV 05/14 1940 Levetiracetam 500 MG STAT STA 05/14 1832 DC 05/14 N/A 1 UNIT IV 05/14 1846 1909 Levothyroxine Sodium 0.025 MG DAILY AC 05/15 0700 AC 05/15 PO 0611 Lorazepam 1 MG ONCE ONE 05/14 1845 DC 05/14 IV 05/14 184 183 Lorazepam 0 .STK-MED ONE 05/14 1837 DC .ROUTE Lorazepam 1 MG STAT STA 05/14 1832 DC 05/14 IV 05/14 183 183 Losartan Potassium 100 MG DAILY 05/15 1000 AC 05/15 PO 0918 Polyethylene Glycol 17 GM DAILY PRN 05/14 2315 AC PO Potassium Chloride 20 MEQ .[id number] 05/14 2230 AC 05/14 Dextrose/Sodium 1,000 ML IV 2340 Chloride Review of Systems Review of Systems Constitutional: Reports: no symptoms. EENTM: Reports: see HPI. Cardiovascular: Reports: no symptoms. Respiratory: Reports: no symptoms. GI: Reports: no symptoms. Genitourinary: Reports: no symptoms. Musculoskeletal: Reports: see HPI. Skin: Reports: no symptoms. Neurological/Psychological: Reports: see HPI. Hematologic/Endocrine: Reports: no symptoms. 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 benign) Family History Relations & Conditions If Any: Relation not specified for: Family history unobtainable Psychosocial History Where Do You Live? Home Who Do You Live With? spouse Services at Home: None Primary Language: Libyan Smoking Status: Never Smoked ETOH Use: ocassional Illicit Drug Use: denies illicit drug use Living Will? 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 Ambulation: independent (? prior to admit) IADLs Unknown: shopping, housework, finances, food prep, telephone, transportation, medication admin. Exam & Diagnostic Data Last 24 Hrs of Vital Signs/I&O Vital Signs Date Time Temp Pulse Resp B/P B/P Pulse O2 O2 Flow FiO2 Mean Ox Delivery Rate 05/15 917 97.4 78 20 130/68 05/15 0808 97.4 78 20 120/61 99 05/15 0745 97.4 78 20 120/61 05/15 0740 97.3 78 20 120/61 99 05/15 0502 97.0 76 20 136/68 100 Nasal 2.0L Cannula 05/15 0347 100 Nasal 2.0L Cannula 05/15 0346 97.1 86 20 140/62 100 Nasal 2.0L Cannula 05/15 0125 97.0 86 20 128/67 98 Nasal 2.0L Cannula 05/14 2257 96.9 81 16 120/77 100 Nasal 2.0L Cannula 05/14 2150 Nasal 2.0L Cannula 05/14 2054 97.4 86 16 106/65 97 Nasal 2.0L Cannula 05/14 1840 96.5 102 20 175/65 100 Nasal 2.0L Cannula 05/14 1708 96.8 72 20 152/75 97 Room Air 05/14 1526 97.7 93 18 167/81 99 Room Air Room Air Physical Exam General Appearance: well developed/nourished, no apparent distress, alert, awake , comfortable Head: atraumatic, normal appearance Eyes: Bilateral: normal appearance, PERRL, EOMI. Ears, Nose, Throat: normal pharynx, normal ENT inspection, HEARING DIFFICULTY+ Neck: normal inspection, supple, full range of motion Respiratory: normal breath sounds, chest non-tender, no respiratory distress Cardiovascular: regular rate/rhythm Peripheral Pulses: 4+ radial (R), 4+ radial (L) Gastrointestinal: normal bowel sounds, soft, non-tender Back: normal inspection, normal range of motion Extremities: normal inspection, normal capillary refill, normal range of motion, no edema Neurologic/Psych: awake, alert, oriented x 3, normal mood/affect, RUE motor weakness in fine motor skills , clark hand muscles; gross motor is normal, rest of neuro exam grossly intact Skin: intact, normal color, warm/dry Lymphatic: no anterior cervical gabby Last 48 Hrs of Labs/[place]: Laboratory Tests 05/15/17 0449: Anion Gap 13, Estimated GFR > 60, BUN/Creatinine Ratio 26.0 H, Magnesium 1.6, Total Bilirubin 0.6, Direct Bilirubin 0.4, AST 14, ALT 15, Alkaline Phosphatase 46, Total Protein 5.8 L, Albumin 3.5, CBC w Diff NO MAN DIFF REQ, RBC 3.97 L, MCV 88.1, MCH 29.1, MCHC 33.1, RDW 13.3, MPV 9.8, Gran % 63.4, Lymphocytes % 26.6, Monocytes % 9.0, Eosinophils % 0.6, Basophils % 0.4, Absolute Granulocytes 6.2, Absolute Lymphocytes 2.6, Absolute Monocytes 0.9 H, Absolute Eosinophils 0.1, Absolute Basophils 0 05/14/171999: Urine Opiates Screen < 100, Methadone Screen < 40, Barbiturate Screen < 60, Ur Phencyclidine Scrn < 6.00, Amphetamines Screen < 100, U Benzodiazepines Scrn < 85, Urine Cocaine Screen < 50, Urine Cannabis Screen < 5.00, Urine Color YEL, Urine Clarity HAZY H, Urine pH 6.0, Ur Specific [place] 1.010, Urine Protein NEG, Urine Ketones NEG, Urine Nitrite NEG, Urine Bilirubin NEG, Urine Urobilinogen 0.2, Ur Leukocyte Esterase MOD H, Ur Microscopic SEDIMENT EXAMINED , Urine RBC RARE, Urine WBC 10-15 H, Ur Epithelial Cells MOD H, Urine Bacteria FEW H, Urine Mucus RARE, Urine Hemoglobin TRACE-LYSED, Urine Glucose >=1000 H 05/14/17 1635: Anion Gap 13, Estimated GFR > 60, BUN/Creatinine Ratio 28.3 H, Glucose 271 H, Calcium 9.6, Total Bilirubin 0.5, AST 13 L, ALT 26, Alkaline Phosphatase 59, Troponin I < 0.01, Total Protein 6.9, Albumin 4.2, Globulin 2.7, Albumin/ Globulin Ratio 1.6, TSH 2.050, Free T4 1.05, CBC w Diff NO MAN DIFF REQ, RBC 4.28, MCV 88.2, MCH 29.0, MCHC 32.9 L, RDW 13.5, MPV 10.1, Gran % 69.2, Lymphocytes % 21.2, Monocytes % 8.8, Eosinophils % 0.4, Basophils % 0.4, Absolute Granulocytes 6.0, Absolute Lymphocytes 1.8, Absolute Monocytes 0.8 H, Absolute Eosinophils 0, Absolute Basophils 0 Assessment/Plan CRCU Impression/Plan: 71-year-old female with history of Streptococcus meningitis, with improving lower extremity weakness, and residual seizure disorder and hearing defect, hypertension, hypothyroidism, hyperlipidemia, diabetes mellitus, is here after a seizure-like activity at home after receiving a dose of her seizure medication. 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 She has not had any seizures since her admission yesterday. * We'll continue to do neuro checks regularly * We'll continue IV Keppra 1 g IV twice a day * Neurology consultation requested * EEG pending * Patient is stable enough to be managed in the general medical floor, and thus will be transferred accordingly #Diabetes mellitus Patient was initially kept nothing by mouth due to risk of aspiration in case he has another seizure, but now seeking started having diabetic diet with insulin sliding scale and long-acting insulin. When she gets home and will continue her regular insulin and metformin. #Rest of her home medications are continued for HTN, hypothyroidism. #Diet: CC2 #DVT ppx: SQ lovenox #Code status: Full code Consult Acknowledgment - Thank you for your consult request. Heri Pearson MD 05/15/17 1216: Assessment/Plan CRCU Other Findings/Comments: Heri Cannon M.D. have examined this patient, reviewed available EMR data, personally reviewed images, discussed with resident/PA/ROBOTIC TECHNICIAN, discussed management plan with housestaff and nursing staff, discussed managment plan all of healthcare providers, discussed management plan with patient and/or family, agreed with resident/PA/ROBOTIC TECHNICIAN. The past history and parts of the chart have been autopopulated. 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 Plan We'll follow up neurology recommendations she is hemodynamically stable and her strength is significantly improving on her right side. Her imaging and labs were reviewed. At this juncture she requires hospitalization however she does not need intensive care unit level of care she will be downgraded this time please call with any additional questions or issues. She should be on DVT prophylaxis at all times TTS 35 min Consult Acknowledgment - Thank you for your consult request.
[2017-05-15 07:45] VITALS: BP 120/61
[2017-05-15 08:08] VITALS: BP 120/61
--- NOTE | 2017-05-15 09:43 | Cons- Neurology ---
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 Record review shows that at that time she was on both Keppra and Depakote. After course of rehabilitation she reports she made a full recovery. She has been followed neurologically by my associate Fabiola Bright MD. Her Keppra dose has been gradually reduced over time. Her current dose is 750 mg twice a day. Yesterday she had primarily right-sided body shaking witnessed by her . The patient reports that she did not lose consciousness but was unable to move or speak. She subsequently realized that she had forgotten her morning dose of Keppra, which her subsequently gave to her after he noticed it was still in her pillbox. Post ictally she had weakness and numbness of the right arm, which has gradually improved, but which has not yet returned to baseline. She was not aware of any tongue biting but right-sided lateral tongue biting was evident on today's exam. Allergies/Medications Allergies: Coded Allergies: Sulfa (Sulfonamide Antibiotics) (Intermediate, TURNS RED 03/17/16) Home Med List: Aspirin (Aspirin*) 81 MG TAB.CHEW 1 TAB PO DAILY HEART HEALTH (Reported) Atorvastatin Calcium 10 MG TABLET 1 TAB G TUBE DAILY CHOLESTEROL (Reported) Calcium Carbonate/Vitamin D3 (Calcium 500-Vit D3 600 Caplet) 500 MG-600 TABLET 1 TAB PO DAILY VITAMIN SUPPORT (Reported) Cholecalciferol (Vitamin D3) 1,000 UNIT TABLET 1 TAB PO DAILY VITAMIN SUPPORT (Reported) Clotrimazole 1 % CREAM..G. 1 SULEMAN TOP BID FEET (Reported) Cyanocobalamin (Vitamin B-12) 1,000 MCG TABLET 1 TAB PO DAILY VITAMIN SUPPORT (Reported) Docusate Sodium (Stool Softener) 100 MG CAPSULE 1 CAP PO DAILY NEEDED PRN CONSTIPATION (Reported) Fluticasone Propionate 50 MCG/ACTUATION SPRAY.SUSP 2 SPRAY NASB DAILY ALLERGIES (Reported) Insulin Glargine,Hum.rec.anlog (Lantus Solostar) 100 UNIT/ML (3 ML) INSULN.PEN 14 UNIT SC QPM DIABETES (Reported) Levetiracetam (Keppra) 750 MG TABLET 1 TAB PO BID SEIZURES (Reported) Levothyroxine Sodium 25 MCG TABLET 1 TAB G TUBE DAILY AC THYROID (Reported) Losartan Potassium 100 MG TABLET 1 TAB PO DAILY HEART (Reported) Metformin HCl 1,000 MG TABLET 0.5 TAB PO BID DIABETES (Reported) Polyethylene Glycol 3350 (Miralax) 17 GRAM/DOSE POWDER 17 GM G TUBE DAILY PRN CONSTIPATION Current Medications: Current Medications Sig/Garrick Start time Last Medication Dose Route Stop Time Status Admin Acetaminophen 1,000 MG Q6P PRN 05/14 2230 AC IV Aspirin 81 MG DAILY 05/15 1000 AC 05/15 PO 0918 Atorvastatin Calcium 10 MG DAILY 05/15 1000 AC 05/15 PO 0918 Calcium Carbonate 500 MG DAILY 05/15 1000 AC 05/15 PO 0918 Cholecalciferol 1,000 IU DAILY 05/15 1000 AC 05/15 PO 0918 Clotrimazole 1 SULEMAN BID 05/15 1000 AC 05/15 TOP 0918 Cyanocobalamin 1,000 MCG DAILY 05/15 1000 AC 05/15 PO 0918 Docusate Sodium 100 MG DAILY NEEDED PRN 05/14 2300 AC PO Enoxaparin Sodium 40 MG DAILY 05/15 1000 AC 05/15 SC 0918 Fluticasone 2 SPRAY DAILY 05/15 1000 AC Propionate MUMTAZ Insulin Aspart 0 TIDAC 05/15 1200 UNVr SC Insulin Detemir 7 UNITS QPM 05/15 2200 DC SC Insulin Detemir 14 UNITS QPM 05/15 2200 UNVr SC Insulin Human Regular 0 Q6 05/14 2359 DC 05/15 SC 0520 Levetiracetam 1,000 MG Q12 05/15 1000 AC 05/15 N/A 1 UNIT IV 0929 Levetiracetam 500 MG STAT STA 05/14 2012 DC 05/14 N/A 1 UNIT IV 05/14 Levetiracetam 1,000 MG STAT STA 05/14 1926 CAN N/A 1 UNIT IV 05/14 1940 Levetiracetam 500 MG STAT STA 05/14 1832 DC 05/14 N/A 1 UNIT IV 05/14 1846 1909 Levothyroxine Sodium 0.025 MG DAILY AC 05/15 0700 AC 05/15 PO 0611 Lorazepam 1 MG ONCE ONE 05/14 1845 DC 05/14 IV 05/14 184 183 Lorazepam 0 .STK-MED ONE 05/14 183 DC .ROUTE Lorazepam 1 MG STAT STA 05/14 183 DC 05/14 IV 05/14 1832 183 Losartan Potassium 100 MG DAILY 05/15 1000 AC 05/15 PO 0918 Polyethylene Glycol 17 GM DAILY PRN 05/14 2315 AC PO Potassium Chloride 20 MEQ .[id number] 05/14 2230 AC 05/14 Dextrose/Sodium 1,000 ML IV 2340 Chloride Review of Systems Review of Systems: REVIEW OF SYSTEMS: (-) = negative / normal blank = not discussed Neurologic: see HPI Eyes: (-) ENT: (-) Constitutional: (-) CV: (-) Respiratory: (-) /Renal: (-) Musculoskeletal: (-) Skin: (-) Psychiatric: (-) Heme: (-) GI: (-) Allergy/Immune: (-) Endocrine: (-) Other: (-) Past History Travel History Traveled to [place] past 21 day No Medical History Blood Transfusion Hx: No Neurological: meningitis (this admission/left otitis), seizure EENT: Left VC paralysis Cardiovascular: hypertension, hyperlipidemia, CAC this admission Respiratory: NONE Gastrointestinal: NONE Hepatic: NONE Renal: NONE Musculoskeletal: NONE Psychiatric: NONE Endocrine: diabetes, hypothyroidism, obesity Blood Disorders: NONE Cancer(s): NONE 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 benign) Family History Relations & Conditions If Any: Relation not specified for: Family history unobtainable Psychosocial History Where Do You Live? Home Who Do You Live With? spouse Services at Home: None Primary Language: [place] Verde[place] Smoking Status: Never Smoked ETOH Use: ocassional Illicit Drug Use: denies illicit drug use Living Will? unknown Power of Director State Pharmacy/HCP? unknown Functional Ability ADLs Unknown: dressing, eating, toileting, bathing. Ambulation: independent (? prior to admit) IADLs Unknown: shopping, housework, finances, food prep, telephone, transportation, medication admin. Exam & Diagnostic Data Vital Signs and I&O Vital Signs Date Time Temp Pulse Resp B/P B/P Pulse O2 O2 Flow FiO2 Mean Ox Delivery Rate 03/23 0918 97.4 78 20 130/68 05/15 0808 97.4 78 20 120/61 99 05/15 0745 97.4 78 20 120/61 05/15 0740 97.3 78 20 120/61 99 05/15 0502 97.0 76 20 136/68 100 Nasal 2.0L Cannula 05/15 0347 100 Nasal 2.0L Cannula 05/15 0346 97.1 86 20 140/62 100 Nasal 2.0L Cannula 05/15 0125 97.0 86 20 128/67 98 Nasal 2.0L Cannula 05/14 2257 96.9 81 16 120/77 100 Nasal 2.0L Cannula 05/14 2150 Nasal 2.0L Cannula 05/14 2054 97.4 86 16 106/65 97 Nasal 2.0L Cannula 05/14 1840 96.5 102 20 175/65 100 Nasal 2.0L Cannula 05/14 1708 96.8 72 20 152/75 97 Room Air 05/14 1526 97.7 93 18 167/81 99 Room Air Room Air Physical Exam: PHYSICAL EXAMINATION: nl = normal NT or blank = not tested GENERAL Appearance: nl Head: nl Eyes: nl ENT: nl Neck: nl Carotids: nl Lungs: nl Heart: nl Extremities: nl NEUROLOGIC MENTAL STATUS Level of consciousness: nl Orientation: nl Attention / Concentration: nl Memory: nl Fund of Knowledge: nl Speech / Language: nl NEUROLOGIC CRANIAL NERVES I: Olfaction: NT II: Optic nerves: nl Visual chambers: nl III: Pupils: nl Levator palpebrae: nl III, IV, : Ocular alignment: nl Extraocular motility: nl Pursuits/ saccades: nl V: Facial sensation: nl Masseter/Pterygoids: nl VII: Facial Motor: nl VIII: Hearing (finger rub): nl IX, X: Uvula and palate: nl XI: SCM, Upper trap.: nl XII: Tongue: nl MOTOR / NEUROMUSCULAR Bulk: nl Tone: nl Strength: nl except right upper extremity 3+ out of 5 Rapid alternating movements: nl with the exception of the right upper extremity which is impaired Fine motor movements: nl with the exception of the right upper extremity which is impaired Abnormal / involuntary movements: none CEREBELLAR / COORDINATION: intact SENSATION: intact with the exception of the right upper extremity which is reduced to light touch DTR's symmetrically trace to 1+ PLANTARS: flexor on the left, extensor on the right GAIT: Not tested Last 48 Hours of Lab Results: Laboratory Tests 05/15 Chemistry Sodium (137 - 145 mmol/L) 144 Potassium (3.5 - 5.1 mmol/L) 4.2 Chloride (98 - 107 mmol/L) 104 Carbon Dioxide (22 - 30 mmol/L) 27 Anion Gap (5 - 16) 13 BUN (7 - 17 mg/dL) 13 Creatinine (0.5 - 1.0 mg/dL) 0.5 Estimated GFR (>60 ml/min) > 60 BUN/Creatinine Ratio (7 - 25 %) 26.0 H Magnesium (1.6 - 2.3 mg/dL) 1.6 Total Bilirubin (0.2 - 1.3 mg/dL) 0.6 Direct Bilirubin (< 0.4 mg/dL) 0.4 AST (14 - 36 U/L) 14 ALT (9 - 52 U/L) 15 Alkaline Phosphatase (<127 U/L) 46 Total Protein (6.3 - 8.2 g/dL) 5.8 L Albumin (3.5 - 5.0 g/dL) 3.5 Hematology CBC w Diff NO MAN DIFF REQ WBC (4.8 - 10.8 /CUMM) 9.8 RBC (4.20 - 5.40 /CUMM) 3.97 L Hgb (12.0 - 16.0 G/DL) 11.6 L Hct (37 - 47 %) 35.0 L MCV (81.0 - 99.0 FL) 88.1 MCH (27.0 - 31.0 PG) 29.1 MCHC (33.0 - 37.0 G/DL) 33.1 RDW (11.5 - 14.5 %) 13.3 Plt Count (130 - 400 /CUMM) 212 MPV (7.4 - 10.4 FL) 9.8 Gran % (42.2 - 75.2 %) 63.4 Lymphocytes % (20.5 - 51.1 %) 26.6 Monocytes % (1.7 - 9.3 %) 9.0 Eosinophils % (0 - 5 %) 0.6 Basophils % (0.0 - 2.0 %) 0.4 Absolute Granulocytes (1.4 - 6.5 /CUMM) 6.2 Absolute Lymphocytes (1.2 - 3.4 /CUMM) 2.6 Absolute Monocytes (0.10 - 0.60 /CUMM) 0.9 H Absolute Eosinophils (0.0 - 0.7 /CUMM) 0.1 Absolute Basophils (0.0 - 0.2 /CUMM) 0 Toxicology Urine Opiates Screen (>2000 NG/ML) < 100 Methadone Screen (>300 NG/ML) < 40 Barbiturate Screen (>200 NG/ML) < 60 Ur Phencyclidine Scrn (>25 NG/ML) < 6.00 Amphetamines Screen (>1000 NG/ML) < 100 U Benzodiazepines Scrn (>200 NG/ML) < 85 Urine Cocaine Screen (>300 NG/ML) < 50 Urine Cannabis Screen (>50 NG/ML) < 5.00 Urines Urine Color (YEL,AMB,STR) YEL Urine Clarity (CLEAR) HAZY H Urine pH (5.0 - 8.0) 6.0 Ur Specific [place] (1.001 - 1.035) 1.010 Urine Protein (NEG,<30 MG/DL) NEG Urine Ketones (NEG) NEG Urine Nitrite (NEG) NEG Urine Bilirubin (NEG) NEG Urine Urobilinogen (0.1 - 1.0 EU/dl) 0.2 Ur Leukocyte Esterase (NEG) MOD H Ur Microscopic SEDIMENT EXAMINED Urine RBC (0 - 5 /HPF) RARE Urine WBC (0 - 2 /HPF) 10-15 H Ur Epithelial Cells (NONE,FEW) MOD H Urine Bacteria (NEG/NONE) FEW H Urine Mucus (FEW,NONE) RARE Urine Hemoglobin (NEG) TRACE-LYSED Urine Glucose (N MG/DL) >=1000 H 05/14 1635 Chemistry Sodium (137 - 145 mmol/L) 140 Potassium (3.5 - 5.1 mmol/L) 3.9 Chloride (98 - 107 mmol/L) 100 Carbon Dioxide (22 - 30 mmol/L) 28 Anion Gap (5 - 16) 13 BUN (7 - 17 mg/dL) 17 Creatinine (0.5 - 1.0 mg/dL) 0.6 Estimated GFR (>60 ml/min) > 60 BUN/Creatinine Ratio (7 - 25 %) 28.3 H Glucose (65 - 99 mg/dL) 271 H Calcium (8.4 - 10.2 mg/dL) 9.6 Total Bilirubin (0.2 - 1.3 mg/dL) 0.5 AST (14 - 36 U/L) 13 L ALT (9 - 52 U/L) 26 Alkaline Phosphatase (<127 U/L) 59 Troponin I (< 0.11 ng/ml) < 0.01 Total Protein (6.3 - 8.2 g/dL) 6.9 Albumin (3.5 - 5.0 g/dL) 4.2 Globulin (1.9 - 4.2 gm/dL) 2.7 Albumin/Globulin Ratio (1.1 - 2.2 %) 1.6 TSH (0.270 - 4.200 uIU/mL) 2.050 Free T4 (0.78 - 2.44 ng/dL) 1.05 Hematology CBC w Diff NO MAN DIFF REQ WBC (4.8 - 10.8 /CUMM) 8.7 RBC (4.20 - 5.40 /CUMM) 4.28 Hgb (12.0 - 16.0 G/DL) 12.4 Hct (37 - 47 %) 37.7 MCV (81.0 - 99.0 FL) 88.2 MCH (27.0 - 31.0 PG) 29.0 MCHC (33.0 - 37.0 G/DL) 32.9 L RDW (11.5 - 14.5 %) 13.5 Plt Count (130 - 400 /CUMM) 227 MPV (7.4 - 10.4 FL) 10.1 Gran % (42.2 - 75.2 %) 69.2 Lymphocytes % (20.5 - 51.1 %) 21.2 Monocytes % (1.7 - 9.3 %) 8.8 Eosinophils % (0 - 5 %) 0.4 Basophils % (0.0 - 2.0 %) 0.4 Absolute Granulocytes (1.4 - 6.5 /CUMM) 6.0 Absolute Lymphocytes (1.2 - 3.4 /CUMM) 1.8 Absolute Monocytes (0.10 - 0.60 /CUMM) 0.8 H Absolute Eosinophils (0.0 - 0.7 /CUMM) 0 Absolute Basophils (0.0 - 0.2 /CUMM) 0 Imaging/Other Studies: Hd CT: FINDINGS: There is no intracranial hemorrhage, mass, extra-axial collection, or CT evidence of large territory infarction. 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 The ventricles are normal in size and configuration without evidence of hydrocephalus. The visualized paranasal sinuses and mastoid air cells are clear. There are severe degenerative changes of the right temporomandibular joint. There are atheromatous calcifications at the carotid siphons. IMPRESSION: No acute intracranial abnormality identified. DICTATED BY: Rehana Camarillo MD DATE/TIME DICTATED:05/14/171625 EEG 04/03/2016: Interpretation: The background is composed of generalized low amplitude beta activity with brief moments of irregular low amplitude alpha frequency activity in the posterior regions. Bifrontal synchronous intermittent rhythmic moderate to high amplitude delta activity "FIRDA" is seen throughout the record. No lateralized, focal or epileptiform abnormalities are noted. activation procedures were deferred, and the recording abrieviated to about 15 minutes as profuse sweating interfered with the scalp electrodes. Impression: Abnormal due to FIRDA which often indicates dysfunction in deep subcortical regions and can be seen in toxic and metabolic encephalopathies. No further focal or epileptiform abnormalities are found. DICTATED BY: FABIOLA BRIGHT MD DATE/TIME DICTATED:04/02/162038 E LEARNING MANAGER:GALE DATE/TIME TRANSCRIBED:04/02/162038 REPORT NUMBER:[id number] CONFIDENTIAL, DO NOT COPY WITHOUT APPROPRIATE AUTHORIZATION. <Electronically signed by FABIOLA BRIGHT MD> 04/02/162055 EEG 03/24/2016: Interpretation: EEG in sedated state Background is 5-6 cps activity Intermittent sharp wave activity is present maximally in left central head region Brief episodes of electrographic seizure, left central and generalized apperar for 4-5 seconds duration Impression: Abnormal EEG due to left central sharp wave activity and brief electrographic seizures DICTATED BY: RAY MOFFETT MD DATE/TIME DICTATED:03/24/162354 Brain MRI Apr 16: FINDINGS: There is thick nodular enhancement of the parietal gyri near the vertex posteriorly, left greater than right-sided. Additional regional leptomeningeal enhancement suspected. There is abnormal T2 prolongation in the gyri of the inferior parietal lobules bilaterally at the high convexities as well. Findings are unchanged compared to prior CT imaging. There is mild pachymeningeal enhancement along the cerebral convexities. There are some foci of diffusion signal abnormality presumed to be within the high bilateral frontoparietal sulci. Although limited for assessment. No definite additional brain parenchymal signal abnormalities are seen. The basilar cisterns are normal. The brainstem and cerebellum are unremarkable. No hydrocephalus or midline shift of structures. The gradient refocused acquisition is motion degraded. The craniovertebral junction and marrow signal appear normal. There is fluid and areas of enhancement in the mastoid air cells, right greater than left side, and in the middle ear cavities. There is a small fluid level in the left maxillary antrum. IMPRESSION: Limited study with motion artifacts. 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 A few scattered foci of diffusion signal abnormality within the frontoparietal sulci as well bilaterally. Fluid and enhancement in the mastoid air cells and middle ear cavities, worse on the right side. DICTATED BY: MUKESH FREEMAN MD DATE/TIME DICTATED:04/14/161348 EEG 04/28/2016: Interpretation: The recording demonstrates a mild general slowing of backgrounds with some more focal slowing within the left frontal region. The predominant rhythm is theta with some delta seen within the left frontal region. There are no paroxysmal features or epileptiform sharps. The posterior dominant rhythm is estimated at 7 hertz bilaterally. Impression: Abnormal EEG to mild background slowing with more pronounced slowing in the left frontal region. No suggested seizure acitivity. EEG consistent with a non- specific encephalopathy. DICTATED BY: SIN KINCAID MD DATE/TIME DICTATED:04/28/162122 E LEARNING MANAGER:SEBAS DATE/TIME TRANSCRIBED:04/28/162122 Assessment/Plan Assessment: 71-year-old woman with a history of meningitis one year ago, complicated by seizures at that time, was doing well and gradually tapering off anticonvulsant medication when she presented here with a breakthrough seizure after missing 1 750 mg dose of Keppra yesterday morning She has residual right arm weakness and numbness which may be a post ictal phenomena however could also represent an ischemic stroke, though less likely given the rapidity of improvement Recommendations: Increase Keppra to 1000 mg twice a day EEG Brain MRI without contrast PT and OT Consult Acknowledgment - Thank you for your consult request.
[2017-05-15 13:36] VITALS: BP 138/72
--- NOTE | 2017-05-15 18:42 | MRI REPORT ---
EXAMINATION: MR BRAIN WITHOUT CONTRAST CLINICAL INFORMATION: 71-year-old woman with seizure and residual right arm weakness and numbness. Evaluate for ischemia. COMPARISON: 05/14/[address], 04/14/2016 brain MRI TECHNIQUE: MRI of the brain without contrast was obtained using routine sequences. FINDINGS: Scattered areas of chronic cortical encephalomalacia and gliosis are again noted at the frontal and parietal convexities. There is no imaging evidence of mesial temporal sclerosis. No focal reduced diffusion is seen to suggest acute or subacute cerebral ischemia. No intracranial mass, intracerebral edema, intra-axial blood products, midline shift, or extra-axial collection is visualized. The ventricles and sulcal spaces appear normal. Normal arterial and venous vascular flow voids are present. Mild mucosal thickening is seen in the left ethmoid air cells and there is trace fluid layering in the left maxillary sinus. IMPRESSION: No evidence of acute cerebral ischemia or mesial temporal sclerosis. Scattered areas of cortical encephalomalacia and gliosis are again noted at both frontal and parietal convexities.
[2017-05-15 22:23] VITALS: BP 118/66
[2017-05-16] VITALS (9 sets, daily range): BP systolic 122–140; BP diastolic 54–78
--- NOTE | 2017-05-16 08:28 | PN- Housestaff ---
Gina ALDRICH,Rafaela 05/16/17 0827: Subjective Follow-up For: # Seizure activity, secondary to missed medication #Diabetes mellitus Subjective: Patient was seen and examined at bedside, continues to complain of RT hand twitches, denies any fever, nausea, vomiting, diarrhea or constipation Review of Systems Constitutional: Reports: see HPI. Objective Last 24 Hrs of Vital Signs/I&O Vital Signs Date Time Temp Pulse Resp B/P B/P Pulse O2 O2 Flow FiO2 Mean Ox Delivery Rate 05/16 0908 83 140/66 05/16 0906 83 140/66 05/16 0800 Room Air 05/16 0800 97.6 79 18 132/78 05/16 0715 97.6 79 18 132/78 98 Room Air 05/15 2223 97.8 85 16 118/66 97 Room Air 05/15 2120 Room Air 05/15 1336 98.4 78 18 138/72 95 Room Air Room Air 05/15 1258 98.1 87 18 119/62 95 Room Air Intake & Output 05/16 1600 05/16 0800 05/16 0000 Intake Total 405 Output Total Balance 405 Intake, IV 125 Intake, Oral 280 Patient 157 lb Weight Weight Bed scale Measurement Method Physical Exam General Appearance: Alert, Oriented X3, Cooperative, No Acute Distress HEENT: Atraumatic, PERRLA, EOMI, Mucous Membr. moist/pink Neck: Supple, No JVD Cardiovascular: Normal S1, Normal S2, No Murmurs Lungs: Clear to Auscultation Abdomen: Normal Bowel Sounds, Soft, No Tenderness Neurological: Normal Speech, Strength at 5/5 X4 Ext, Normal Tone Extremities: No Clubbing, No Cyanosis, No Edema Current Medications: Current Medications Sig/Garrick Start time Last Medication Dose Route Stop Time Status Admin Acetaminophen 650 MG ONCE ONE 05/16 0545 DC 05/16 PO 05/16 0546 0556 Acetaminophen 1,000 MG Q6P PRN 05/14 2230 AC IV Aspirin 81 MG DAILY 05/15 1000 AC 05/16 PO 0908 Atorvastatin Calcium 10 MG DAILY 05/15 1000 AC 05/16 PO 0908 Calcium Carbonate 500 MG DAILY 05/15 1000 AC 05/16 PO 0908 Cholecalciferol 1,000 IU DAILY 05/15 1000 AC 05/16 PO 0908 Clotrimazole 1 SULEMAN BID 05/15 1000 AC 05/15 TOP 2223 Cyanocobalamin 1,000 MCG DAILY 05/15 1000 AC 05/16 PO 0908 Docusate Sodium 100 MG DAILY NEEDED PRN 05/14 2300 AC PO Enoxaparin Sodium 40 MG DAILY 05/15 1000 AC 05/16 SC 0909 Fluticasone 2 SPRAY DAILY 05/15 1000 AC 05/16 Propionate MUMTAZ 0909 Guaifenesin 600 MG Q12 05/16 1000 AC 05/16 PO 1023 Insulin Aspart 0 TIDAC 05/15 1200 AC SC Insulin Detemir 14 UNITS QPM 05/15 2200 AC 05/15 SC 2219 Levetiracetam 1,000 MG Q12 05/15 1000 AC 05/16 N/A 1 UNIT IV 0909 Levothyroxine Sodium 0.025 MG DAILY AC 05/15 0700 AC 05/16 PO 0556 Losartan Potassium 100 MG DAILY 05/15 1000 AC 05/16 PO 0908 Magnesium Oxide 400 MG ONE ONE 05/15 1215 DC PO 05/15 1216 Polyethylene Glycol 17 GM DAILY PRN 05/14 2315 AC PO Assessment/Plan Assessment: 71-year-old female with history of Streptococcus meningitis, with improving lower extremity weakness, and residual seizure disorder and hearing defect, hypertension, hypothyroidism, hyperlipidemia, diabetes mellitus, is here after a seizure-like activity at home after receiving a dose of her seizure medication. 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 She has not had any seizures since her admission yesterday. * We'll continue to do neuro checks regularly * We'll continue IV Keppra 1 g IV twice a day * Neurology recommendation appreciated * EEG :abnormal due to runs of slowing and sharp waves in the left central region suggestive of an active seizure focus * MRI :No evidence of acute cerebral ischemia or mesial temporal sclerosis. Scattered areas of cortical encephalomalacia and gliosis are again noted at both frontal and parietal convexities. #Diabetes mellitus FSG 146 Insulin sliding scale Consistent carbohydrate diet #Rest of her home medications are continued for HTN, hypothyroidism. #Diet: CC2 #DVT ppx: SQ lovenox #Code status: Full code EEG: Problem List: 1. Seizures 2. 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 Plan -EEG is consistent with seizure activity -continue Keppra -f/u neurology recommendations -if no further thought regarding CVA from neurology can downgrade to GM in am, unlikely CVA -monitor for seizures -aspiration precautions DVT prophylaxis at all times
--- NOTE | 2017-05-16 09:26 | ELECTROENCEPHALOGRAM REPORT ---
Electroencephalogram Report Electroencephalogram Results Date of service: 05/15/17 Attending MD: Jeanine Wise MD Lobby Porter: Mikhail EEG Number: [id number] Test Utilizes: 10-20 system, 21 lead 18 channel digital recording Pertinent Hx/Physical/Neuro Findings/Clin Diagnosis: Breakthrough seizure in patient with history of meningitis and seizure disorder Inpatient Medications: Current Medications Sig/Garrick Start time Last Medication Dose Route Stop Time Status Admin Acetaminophen 650 MG ONCE ONE 05/16 0545 DC 05/16 PO 05/16 0546 0556 Acetaminophen 1,000 MG Q6P PRN 05/14 2230 AC IV Aspirin 81 MG DAILY 05/15 1000 AC 05/16 PO 0908 Atorvastatin Calcium 10 MG DAILY 05/15 1000 AC 05/16 PO 0908 Calcium Carbonate 500 MG DAILY 05/15 1000 AC 05/16 PO 0908 Cholecalciferol 1,000 IU DAILY 05/15 1000 AC 05/16 PO 0908 Clotrimazole 1 SULEMAN BID 05/15 1000 AC 05/15 TOP 2223 Cyanocobalamin 1,000 MCG DAILY 05/15 1000 AC 05/16 PO 0908 Docusate Sodium 100 MG DAILY NEEDED PRN 05/14 2300 AC PO Enoxaparin Sodium 40 MG DAILY 05/15 1000 AC 05/16 SC 0909 Fluticasone 2 SPRAY DAILY 05/15 1000 AC 05/16 Propionate MUMTAZ 0909 Guaifenesin 600 MG Q12 05/16 1000 AC PO Insulin Aspart 0 TIDAC 05/15 1200 AC SC Insulin Detemir 7 UNITS QPM 05/15 2200 DC SC Insulin Detemir 14 UNITS QPM 05/15 2200 AC 05/15 SC 2219 Insulin Human Regular 0 Q6 05/14 2359 DC 05/15 SC 0520 Levetiracetam 1,000 MG Q12 05/15 1000 AC 05/16 N/A 1 UNIT IV 0909 Levothyroxine Sodium 0.025 MG DAILY AC 05/15 0700 AC 05/16 PO 0556 Losartan Potassium 100 MG DAILY 05/15 1000 AC 05/16 PO 0908 Magnesium Oxide 400 MG ONE ONE 05/15 1215 DC PO 05/15 1216 Polyethylene Glycol 17 GM DAILY PRN 05/14 2315 AC PO Potassium Chloride 20 MEQ .[id number] 05/14 2230 DC 05/14 Dextrose/Sodium 1,000 ML IV 2340 Chloride Interpretation: The waking background over both hemispheres is 10-12 hertz low amplitude posterior alpha and frontally dominant beta. There are runs of slowing with sharp waves but no phase reversals at the C3 electrode position repeatedly during the study. In drowsiness more generalized slowing in the theta range appears. Hyperventilation was deferred, photic stimulation adds no further information. Impression: abnormal due to runs of slowing and sharp waves in the left central region suggestive of an active seizure focus
--- NOTE | 2017-05-16 14:39 | PN- Neurology ---
Subjective Subjective: She has had a reemergence of uncontrollable movements of the right upper extremity, from the shoulder down to the hand. This is causing her some discomfort and making it difficult for her to use her dominant right arm. Objective Vital Signs and I&Os Vital Signs Date Time Temp Pulse Resp B/P B/P Pulse O2 O2 Flow FiO2 Mean Ox Delivery Rate 05/16 1400 78 16 140/66 05/16 1211 Room Air 05/16 1200 83 18 140/66 05/16 1000 97.6 79 19 132/78 05/16 0908 83 140/66 05/16 0906 83 140/66 05/16 0800 Room Air 05/16 0800 97.6 79 18 132/78 05/16 0715 97.6 79 18 132/78 98 Room Air 05/15 2223 97.8 85 16 118/66 97 Room Air 05/15 2120 Room Air Intake & Output 05/16 1600 05/16 0800 05/16 0000 05/15 1600 05/15 0800 05/15 0000 Intake Total 780 405 Output Total 200 Balance 780 405 -200 Intake, IV 120 125 Intake, Oral 660 280 Output, Urine 200 Patient 157 lb Weight Weight Bed scale Measurement Method Physical Exam: Awake alert oriented Speech fluent no dysarthria Full extraocular motility Symmetric facial movements Impaired motor control of the right upper extremity in the setting of episodic involuntary movements at the shoulder and fingers primarily Current Medications: Current Medications Sig/Garrick Start time Last Medication Dose Route Stop Time Status Admin Acetaminophen 650 MG ONCE ONE 05/16 0545 DC 05/16 PO 05/16 0546 0556 Acetaminophen 1,000 MG Q6P PRN 05/14 2230 AC IV Aspirin 81 MG DAILY 05/15 1000 AC 05/16 PO 0908 Atorvastatin Calcium 10 MG DAILY 05/15 1000 AC 05/16 PO 0908 Calcium Carbonate 500 MG DAILY 05/15 1000 AC 05/16 PO 0908 Cholecalciferol 1,000 IU DAILY 05/15 1000 AC 05/16 PO 0908 Clotrimazole 1 SULEMAN BID 05/15 1000 AC 05/15 TOP 2223 Cyanocobalamin 1,000 MCG DAILY 05/15 1000 AC 05/16 PO 0908 Docusate Sodium 100 MG DAILY NEEDED PRN 05/14 2300 AC PO Enoxaparin Sodium 40 MG DAILY 05/15 1000 AC 05/16 SC 0909 Fluticasone 2 SPRAY DAILY 05/15 1000 AC 05/16 Propionate MUTMAZ 0909 Guaifenesin 600 MG Q12 05/16 1000 AC 05/16 PO 1023 Insulin Aspart 0 TIDAC 05/15 1200 AC SC Insulin Detemir 14 UNITS QPM 05/15 2200 AC 05/15 SC 2219 Levetiracetam 1,500 MG BID 05/16 2200 UNVr PO Levetiracetam 500 MG ONCE ONE 05/16 1430 DC PO 05/16 1431 Levetiracetam 1,000 MG Q12 05/15 1000 DC 05/16 N/A 1 UNIT IV 0909 Levothyroxine Sodium 0.025 MG DAILY AC 05/15 0700 AC 05/16 PO 0556 Lorazepam 0.5 MG ONCE ONE 05/16 1430 UNVr IV 05/16 1431 Losartan Potassium 100 MG DAILY 05/15 1000 AC 05/16 PO 0908 Polyethylene Glycol 17 GM DAILY PRN 05/14 2315 AC PO Results Recent Imaging Studies: EEG 05/15/2017: Interpretation: The waking background over both hemispheres is 10-12 hertz low amplitude posterior alpha and frontally dominant beta. There are runs of slowing with sharp waves but no phase reversals at the C3 electrode position repeatedly during the study. In drowsiness more generalized slowing in the theta range appears. Hyperventilation was deferred, photic stimulation adds no further information. Impression: abnormal due to runs of slowing and sharp waves in the left central region suggestive of an active seizure focus DICTATED BY: Tom ALDRICH,Raymond Reza DATE/TIME DICTATED:05/16/17919 DIRECTOR DIETETICS DEPARTMENT:GALE DATE/TIME TRANSCRIBED:05/16/17919 REPORT NUMBER:[id number] CONFIDENTIAL, DO NOT COPY WITHOUT APPROPRIATE AUTHORIZATION. <Electronically signed by Raymond Santos MD> 05/16/17 0926 Brain MRI 05/15/2017: SERVICE DATE: 05/15/17 EXAM TYPE: MRI - MRI-HEAD W/O YAKOV EXAMINATION: MR BRAIN WITHOUT CONTRAST CLINICAL INFORMATION: 71-year-old woman with seizure and residual right arm weakness and numbness. Evaluate for ischemia. COMPARISON: 05/14/[address], 04/14/2016 brain MRI TECHNIQUE: MRI of the brain without contrast was obtained using routine sequences. FINDINGS: Scattered areas of chronic cortical encephalomalacia and gliosis are again noted at the frontal and parietal convexities. There is no imaging evidence of mesial temporal sclerosis. No focal reduced diffusion is seen to suggest acute or subacute cerebral ischemia. No intracranial mass, intracerebral edema, intra-axial blood products, midline shift, or extra-axial collection is visualized. The ventricles and sulcal spaces appear normal. Normal arterial and venous vascular flow voids are present. Mild mucosal thickening is seen in the left ethmoid air cells and there is trace fluid layering in the left maxillary sinus. IMPRESSION: No evidence of acute cerebral ischemia or mesial temporal sclerosis. Scattered areas of cortical encephalomalacia and gliosis are again noted at both frontal and parietal convexities. DICTATED BY: Yajaira Harp MD DATE/TIME DICTATED:05/15/171710 DIRECTOR DIETETICS DEPARTMENT:PAUL DATE/TIME TRANSCRIBED:05/15/171710 CONFIDENTIAL, DO NOT COPY WITHOUT APPROPRIATE AUTHORIZATION. <Electronically signed in Other Vendor System> SIGNED BY: Yajaira Harp MD 05/15/17 4622 Assessment/Plan Assessment: Ongoing partial seizure activity emanating from the left hemisphere, in the setting of a history of meningitis and in the midst of tapering off AED medication on an outpatient basis. Persistent right upper extremity impairment likely due to seizure activity. MRI does not show a stroke or structural abnormality to otherwise explain it Plan: Lorazepam 0.5 mg IV 1 now Increase Keppra from 1000 mg to 1500 mg bid (PO) Repeat EEG on May 18 Consult PT and OT
[2017-05-17] VITALS (10 sets, daily range): BP systolic 128–130; BP diastolic 70–72
[2017-05-17 08:23] LABS: ABSOLUTE BASOPHIL COUNT 0 /CUMM (0.0-0.2); ABSOLUTE EOSINOPHIL COUNT 0.1 /CUMM (0.0-0.7); ABSOLUTE GRANULOCYTE CT 3.9 /CUMM (1.4-6.5); ABSOLUTE LYMPH COUNT 2.5 /CUMM (1.2-3.4); ABSOLUTE MONOCYTE COUNT 0.6 /CUMM (0.10-0.60); BASOPHIL % 0.5 % (0.0-2.0); EOSINOPHIL % 1.3 % (0-5); GRANULOCYTE % 54.4 % (42.2-75.2); HEMATOCRIT 35.5 % (37-47); MEAN CORPUSCULAR HGB 29.4 PG (27.0-31.0); MEAN CORPUSCULAR HGB CONC 33.2 G/DL (33.0-37.0); MEAN CORPUSCULAR VOLUME 88.3 FL (81.0-99.0); MEAN PLATELET VOLUME 9.9 FL (7.4-10.4); PLATELET COUNT 204 /CUMM (130-400); RBC DISTRIBUTION WIDTH 13.3 % (11.5-14.5); RED BLOOD CELL CT 4.01 /CUMM (4.20-5.40); WHITE BLOOD CELL COUNT 7.2 /CUMM (4.8-10.8)
--- NOTE | 2017-05-17 09:39 | PN- Housestaff ---
Ward ALDRICH,[facility] 05/17/17 0938: Subjective Follow-up For: Seizure activity, secondary to missed medicationDiabetes mellitus Tele-Events Since Last Visit: NSR 7730 Subjective: No acute events overnight. Patient states that she still has hand numbness and tingling which radiates her hearing typically. States that she has a slight headache however this improved after coffee. Review of Systems Constitutional: Reports: see HPI. Objective Last 24 Hrs of Vital Signs/I&O Vital Signs Date Time Temp Pulse Resp B/P B/P Pulse O2 O2 Flow FiO2 Mean Ox Delivery Rate 05/17 1600 92 16 130/70 05/17 1425 97.2 75 18 130/70 95 Room Air 05/17 1400 95 18 130/70 05/17 1200 86 18 130/70 05/17 1000 67 18 128/72 05/17 0850 86 130/70 05/17 0850 86 130/70 05/17 0847 86 130/70 05/17 0800 Room Air 05/17 0800 97.8 69 18 128/72 05/17 0634 97.8 67 18 128/72 97 Room Air 05/16 2238 97.6 62 18 130/62 96 Room Air Intake & Output 05/17 1600 05/17 0800 05/17 0000 Intake Total 600 250 650.25 Output Total Balance 600 250 650.25 Intake, IV 10.25 Intake, Oral 600 250 640 Number 1 Bowel Movements Patient 159 lb Weight Weight Bed scale Measurement Method Physical Exam General Appearance: Alert, Oriented X3, Cooperative Cardiovascular: mild tachycardia Lungs: Clear to Auscultation, Normal Air Movement Abdomen: Normal Bowel Sounds, Soft, No Tenderness Extremities: trace lower extremity edema Vascular: 2+ radial pulses Current Medications: Current Medications Sig/Garrick Start time Last Medication Dose Route Stop Time Status Admin Acetaminophen 650 MG ONCE ONE 05/16 2114 DC 05/16 PO 05/16 Acetaminophen 1,000 MG Q6P PRN 05/14 2230 AC IV Aspirin 81 MG DAILY 05/15 1000 AC 05/17 PO 0849 Atorvastatin Calcium 10 MG DAILY 05/15 1000 AC 05/17 PO 0850 Calcium Carbonate 500 MG DAILY 05/15 1000 AC 05/17 PO 0850 Cholecalciferol 1,000 IU DAILY 05/15 1000 AC 05/17 PO 0850 Clotrimazole 1 SULEMAN BID 05/15 1000 AC 05/15 TOP 2223 Cyanocobalamin 1,000 MCG DAILY 05/15 1000 AC 05/17 PO 0850 Docusate Sodium 100 MG DAILY NEEDED PRN 05/14 2300 AC 05/17 PO 1229 Enoxaparin Sodium 40 MG DAILY 05/15 1000 AC 05/17 SC 0850 Fluticasone 2 SPRAY DAILY 05/15 1000 AC 05/17 Propionate MUMTAZ 0849 Guaifenesin 600 MG Q12 05/16 1000 AC 05/17 PO 0850 Insulin Aspart 0 TIDAC 05/15 1200 AC 05/17 SC 1229 Insulin Detemir 14 UNITS QPM 05/15 2200 AC 05/16 SC 2117 Levetiracetam 1,500 MG BID 05/16 2200 AC 05/17 PO 0851 Levothyroxine Sodium 0.025 MG DAILY AC 05/15 0700 AC 05/17 PO 0626 Losartan Potassium 100 MG DAILY 05/15 1000 AC 05/17 PO 0850 Polyethylene Glycol 17 GM DAILY PRN 05/14 2315 AC PO Last 24 Hrs of Lab/Keaton Results Last 24 Hrs of Labs/Mics: Laboratory Tests 05/17/17 0625: CBC w Diff NO MAN DIFF REQ, RBC 4.01 L, MCV 88.3, MCH 29.4, MCHC 33.2, RDW 13.3 , MPV 9.9, Gran % 54.4, Lymphocytes % 35.0, Monocytes % 8.8, Eosinophils % 1.3, Basophils % 0.5, Absolute Granulocytes 3.9, Absolute Lymphocytes 2.5, Absolute Monocytes 0.6, Absolute Eosinophils 0.1, Absolute Basophils 0 Assessment/Plan Assessment: A: 71-year-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 She has not had any seizures since her admission. EEG :abnormal due to runs of slowing and sharp waves in the left central region suggestive of an active seizure focus MRI :No evidence of acute cerebral ischemia or mesial temporal sclerosis.Scattered areas of cortical encephalomalacia and gliosis are again noted at both frontal and parietal convexities. -continue neuro checks -continue keppra -follow neurology recommendations -repeat EEG tomorrow #Diabetes mellitus -continue levemir and novolog sliding scale #Chronic medical conditions -cont losartan, flonase, vit b12, vit d, lotrimin, os-hayley, atorvastatin, aspirin , levothyroxine #DVT ppx: SQ lovenox #Code status: Full code Problem List: 1. Status epilepticus Pain Ratin Pain Location: none Pain Goal: Pain 4 or less Pain Plan: pain pathway Tomorrow's Labs & Rationales: bep Heri Pearson MD 05/17/17 0941: Attending MD Review Statement Attending Statement Attending MD Statement: examined this patient, discuss w/resident/PA/CV/CVN CV TSC SYSTEM OPERATOR, agreed w/resident/PA/CV/CVN CV TSC SYSTEM OPERATOR, discussed with family, reviewed EMR data (avail), discussed with nursing, discussed with case mgmt, reviewed images, amended to note Attending Assessment/Plan: Impression 71-year-old woman with a seizure disorder presents with seizures and 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 Plan -EEG is consistent with seizure activity -continue Keppra, dose adjust per neurology -repeat EEG per neurology recommendations -monitor for seizures -aspiration precautions -downgrade to GM DVT prophylaxis at all times
--- NOTE | 2017-05-17 18:20 | PN- Neurology ---
Subjective Subjective: Although her right hand is shaking less, she has had numbness and paresthesias of the right arm and hand and even the right face today. She states she has had occasional right face twitching as well. In the face subjectively feels "swollen". This is despite the increased dose of Keppra from 1000 mg twice a day to 1500 mg twice a day. Objective Vital Signs and I&Os Vital Signs Date Time Temp Pulse Resp B/P B/P Pulse O2 O2 Flow FiO2 Mean Ox Delivery Rate 05/17 1600 92 16 130/70 05/17 1425 97.2 75 18 130/70 95 Room Air 05/17 1400 95 18 130/70 05/17 1200 86 18 130/70 05/17 1000 67 18 128/72 05/17 0850 86 130/70 05/17 0850 86 130/70 05/17 0847 86 130/70 05/17 0800 Room Air 05/17 0800 97.8 69 18 128/72 05/17 0634 97.8 67 18 128/72 97 Room Air 05/16 2238 97.6 62 18 130/62 96 Room Air Intake & Output 05/17 1600 05/17 0800 05/17 0000 05/16 1600 05/16 0800 05/16 0000 Intake Total 600 250 650.25 780 405 Output Total 200 Balance 600 250 650.25 580 405 Intake, IV 10.25 120 125 Intake, Oral 600 250 640 660 280 Number 1 Bowel Movements Output, Urine 200 Patient 159 lb 157 lb Weight Weight Bed scale Bed scale Measurement Method Physical Exam: Awake alert oriented Speech fluent No dysarthria Full extraocular motility Mildly reduced right hand dexterity Current Medications: Current Medications Sig/Garrick Start time Last Medication Dose Route Stop Time Status Admin Acetaminophen 650 MG ONCE ONE 05/16 2114 DC 05/16 PO 05/16 Acetaminophen 1,000 MG Q6P PRN 05/14 2230 AC IV Aspirin 81 MG DAILY 05/15 1000 AC 05/17 PO 0849 Atorvastatin Calcium 10 MG DAILY 05/15 1000 AC 05/17 PO 0850 Calcium Carbonate 500 MG DAILY 05/15 1000 AC 05/17 PO 0850 Cholecalciferol 1,000 IU DAILY 05/15 1000 AC 05/17 PO 0850 Clotrimazole 1 SULEMAN BID 05/15 1000 AC 05/15 TOP 2223 Cyanocobalamin 1,000 MCG DAILY 05/15 1000 AC 05/17 PO 0850 Docusate Sodium 100 MG DAILY NEEDED PRN 05/14 2300 AC 05/17 PO 1229 Enoxaparin Sodium 40 MG DAILY 05/15 1000 AC 05/17 SC 0850 Fluticasone 2 SPRAY DAILY 05/15 1000 AC 05/17 Propionate MUMTAZ 0849 Guaifenesin 600 MG Q12 05/16 1000 AC 05/17 PO 0850 Insulin Aspart 0 TIDAC 05/15 1200 AC 05/17 SC 1229 Insulin Detemir 14 UNITS QPM 05/15 2200 AC 05/16 SC 2117 Levetiracetam 1,500 MG BID 05/16 2200 AC 05/17 PO 0851 Levothyroxine Sodium 0.025 MG DAILY AC 05/15 0700 AC 05/17 PO 0626 Losartan Potassium 100 MG DAILY 05/15 1000 AC 05/17 PO 0850 Polyethylene Glycol 17 GM DAILY PRN 05/14 2315 AC PO Results Last 24 Hours of Lab Results: Laboratory Tests 05/17 624 Hematology CBC w Diff NO MAN DIFF REQ WBC (4.8 - 10.8 /CUMM) 7.2 RBC (4.20 - 5.40 /CUMM) 4.01 L Hgb (12.0 - 16.0 G/DL) 11.8 L Hct (37 - 47 %) 35.5 L MCV (81.0 - 99.0 FL) 88.3 MCH (27.0 - 31.0 PG) 29.4 MCHC (33.0 - 37.0 G/DL) 33.2 RDW (11.5 - 14.5 %) 13.3 Plt Count (130 - 400 /CUMM) 204 MPV (7.4 - 10.4 FL) 9.9 Gran % (42.2 - 75.2 %) 54.4 Lymphocytes % (20.5 - 51.1 %) 35.0 Monocytes % (1.7 - 9.3 %) 8.8 Eosinophils % (0 - 5 %) 1.3 Basophils % (0.0 - 2.0 %) 0.5 Absolute Granulocytes (1.4 - 6.5 /CUMM) 3.9 Absolute Lymphocytes (1.2 - 3.4 /CUMM) 2.5 Absolute Monocytes (0.10 - 0.60 /CUMM) 0.6 Absolute Eosinophils (0.0 - 0.7 /CUMM) 0.1 Absolute Basophils (0.0 - 0.2 /CUMM) 0 Assessment/Plan Assessment: Reemergence of seizures with a history of meningitis Partial events persistent despite increased dose of Keppra to 1500 twice a day Plan: Please add Vimpat 50 mg twice a day Continue Keppra 1500 mg twice a day Repeat EEG tomorrow, May 18
[2017-05-18] VITALS (7 sets, daily range): BP systolic 114–154; BP diastolic 60–84
--- NOTE | 2017-05-18 07:32 | PN- Housestaff ---
Subjective Follow-up For: # Seizure activity, secondary to missed medication #Diabetes mellitus Tele-Events Since Last Visit: Off Tele Subjective: No overnight event. Patient denied more seizure events onvernight. She was coughing but stated that this had been chronic due to vocal cord paralysis. Otherwise no other specific complaint. Review of Systems Constitutional: Reports: see HPI. Objective Last 24 Hrs of Vital Signs/I&O Vital Signs Date Time Temp Pulse Resp B/P B/P Pulse O2 O2 Flow FiO2 Mean Ox Delivery Rate 05/18 906 98.3 62 20 130/70 05/18 0800 Room Air 05/18 0800 98.1 78 18 154/84 05/18 0703 98.3 62 20 130/70 96 Room Air 05/18 0000 95 Room Air 05/17 2252 97.8 70 16 130/72 97 Room Air 05/17 1600 92 16 130/70 05/17 1425 97.2 75 18 130/70 95 Room Air 05/17 1400 95 18 130/70 05/17 1200 86 18 130/70 Intake & Output 05/18 1600 05/18 0800 05/18 0000 Intake Total 600 400 Output Total Balance 600 400 Intake, Oral 600 400 Patient 74.843 kg 69.853 kg Weight Weight Reported by Patient Bed scale Measurement Method Physical Exam General Appearance: Alert, Oriented X3, Cooperative, No Acute Distress Cardiovascular: Regular Rate Lungs: Clear to Auscultation, Normal Air Movement Abdomen: Soft, No Tenderness Neurological: Normal Speech, Sensation Intact, Decreased Strength 4/5 at RUE compared to LUE BLE strength 5/5 intact Extremities: No Edema, Normal Pulses, No Tenderness/Swelling Current Medications: Current Medications Sig/Garrick Start time Last Medication Dose Route Stop Time Status Admin Acetaminophen 650 MG .STK-MED ONE 05/18 2107 DC PO 05/17 2108 Acetaminophen 1,000 MG Q6P PRN 05/140 AC IV Aspirin 81 MG DAILY 05/15 1000 AC 05/18 PO 0907 Atorvastatin Calcium 10 MG DAILY 05/15 1000 AC 05/18 PO 0906 Calcium Carbonate 500 MG DAILY 05/15 1000 AC 05/18 PO 09 Cholecalciferol 1,000 IU DAILY 05/15 1000 AC 05/18 PO 09 Clotrimazole 1 SULEMAN BID 05/15 1000 AC 05/15 TOP 2223 Cyanocobalamin 1,000 MCG DAILY 05/15 1000 AC 05/18 PO 0906 Docusate Sodium 100 MG DAILY NEEDED PRN 05/14 2300 AC 05/17 PO 1229 Enoxaparin Sodium 40 MG DAILY 05/15 1000 AC 05/18 SC 0906 Fluticasone 2 SPRAY DAILY 05/15 1000 AC 05/18 Propionate MUMTAZ 0905 Guaifenesin 600 MG Q12 05/16 1000 AC 05/18 PO 0906 Insulin Aspart 0 TIDAC 05/15 1200 AC 05/17 SC 1229 Insulin Detemir 14 UNITS QPM 05/15 2200 AC 05/17 SC 2109 Lacosamide 50 MG BID 05/18 1000 AC 05/18 PO 0906 Levetiracetam 1,500 MG BID 05/16 2200 AC 05/18 PO 0906 Levothyroxine Sodium 0.025 MG DAILY AC 05/15 0700 AC 05/18 PO 0720 Losartan Potassium 100 MG DAILY 05/15 1000 AC 05/18 PO 0907 Polyethylene Glycol 17 GM DAILY PRN 05/14 2315 AC PO Last 24 Hrs of Lab/Keaton Results Last 24 Hrs of Labs/Mics: Laboratory Tests 05/18/17 0702: Anion Gap 11, Estimated GFR > 60, BUN/Creatinine Ratio 30.0 H Assessment/Plan Assessment: A: 71-year-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 She has not had any seizures since her admission. EEG :abnormal due to runs of slowing and sharp waves in the left central region suggestive of an active seizure focus MRI :No evidence of acute cerebral ischemia or mesial temporal sclerosis.Scattered areas of cortical encephalomalacia and gliosis are again noted at both frontal and parietal convexities. -continue neuro checks -continue keppra 1500 bid + Vimpat 50 bid -follow neurology recommendations -repeat EEG today #Diabetes mellitus -continue levemir 14u qpm and novolog sliding scale #Chronic medical conditions -cont losartan, flonase, vit b12, vit d, lotrimin, os-hayley, atorvastatin, aspirin , levothyroxine #DVT ppx: SQ lovenox #Code status: Full code Problem List: 1. Seizures Pain Ratin Pain Location: NA Pain Goal: Remain pain free Pain Plan: see AP Tomorrow's Labs & Rationales: NA
--- NOTE | 2017-05-18 09:22 | PN- Neurology ---
Subjective Subjective: Just walked from the bathroom to the bed with a rolling walker and nursing staff. Experiencing some stridorous breathing and feeling anxious. Objective Vital Signs and I&Os Vital Signs Date Time Temp Pulse Resp B/P B/P Pulse O2 O2 Flow FiO2 Mean Ox Delivery Rate 05/18 0907 98.3 62 20 130/70 05/18 0703 98.3 62 20 130/70 96 Room Air 05/18 0000 95 Room Air 05/17 2252 97.8 70 16 130/72 97 Room Air 05/17 1600 92 16 130/70 05/17 1425 97.2 75 18 130/70 95 Room Air 05/17 1400 95 18 130/70 05/17 1200 86 18 130/70 05/17 1000 67 18 128/72 Intake & Output 05/18 1600 05/18 0800 05/18 0000 05/17 1600 05/17 0800 05/17 0000 Intake Total 600 400 600 250 650.25 Output Total Balance 600 400 600 250 650.25 Intake, IV 10.25 Intake, Oral 600 400 600 250 640 Number 1 Bowel Movements Patient 154 lb 159 lb Weight Weight Bed scale Bed scale Measurement Method Physical Exam: Awake alert oriented Fluent speech A bit anxious and tearful Brief episode of stridorous breathing after walking from the bathroom Mild dexterity impairment right hand Current Medications: Current Medications Sig/Garrick Start time Last Medication Dose Route Stop Time Status Admin Acetaminophen 650 MG .STK-MED ONE 05/18 2107 DC PO 05/17 2108 Acetaminophen 1,000 MG Q6P PRN 05/14 2230 AC IV Aspirin 81 MG DAILY 05/15 1000 AC 05/18 PO 0907 Atorvastatin Calcium 10 MG DAILY 05/15 1000 AC 05/18 PO 0906 Calcium Carbonate 500 MG DAILY 05/15 1000 AC 05/18 PO 0906 Cholecalciferol 1,000 IU DAILY 05/15 1000 AC 05/18 PO 0906 Clotrimazole 1 SULEMAN BID 05/15 1000 AC 05/15 TOP 2223 Cyanocobalamin 1,000 MCG DAILY 05/15 1000 AC 05/18 PO 0906 Docusate Sodium 100 MG DAILY NEEDED PRN 05/14 2300 AC 05/17 PO 1229 Enoxaparin Sodium 40 MG DAILY 05/15 1000 AC 05/18 SC 0906 Fluticasone 2 SPRAY DAILY 05/15 1000 AC 05/18 Propionate MUMTAZ 0905 Guaifenesin 600 MG Q12 05/16 1000 AC 05/18 PO 0906 Insulin Aspart 0 TIDAC 05/15 1200 AC 05/17 SC 1229 Insulin Detemir 14 UNITS QPM 05/15 2200 AC 05/17 SC 2109 Lacosamide 50 MG BID 05/18 1000 AC 05/18 PO 0906 Levetiracetam 1,500 MG BID 05/16 2200 AC 05/18 PO 0906 Levothyroxine Sodium 0.025 MG DAILY AC 05/15 0700 AC 05/18 PO 0720 Losartan Potassium 100 MG DAILY 05/15 1000 AC 05/18 PO 0907 Polyethylene Glycol 17 GM DAILY PRN 05/14 2315 AC PO Assessment/Plan Assessment: Breakthrough seizures in the setting of one missed dose of Keppra and in the midst of weaning off anticonvulsant medication 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
--- NOTE | 2017-05-18 13:19 | PN- Att Addend ---
Attending Addendum Attending Brief Note Patient seen and examined. Plan of care discussed with the medical team and the patient. Available lab work and radiology test reports were reviewed. Patient reports no further seizure activity. She is currently awake alert and sitting in bed. Her is at bedside. She denies any fever chills nausea vomiting chest pain difficulty breathing or abdominal pain. Exam: General: Patient awake alert oriented without any distress CVS: S1 plus S2 without any murmur or gallops Chest: Few scattered crepitation without any wheeze. There is no respiratory distress. Abdomen: Soft non-tender, bowel sound present, no guarding or rebound CLEARANCE COORDINATOR: Awake alert oriented with 4 over 5 right upper extremity weakness which is chronic. follows commands appropriately Extremities: No edema; no clubbing or cyanosis noted Assessment * Recurrent seizure due to missing Keppra dose * History of diabetes * History of hypertension * History of strep pneumonia meningitis in remote past Plan * Continue Keppra and Vimpat * Agree with a repeat EEG today * Out of bed and ambulate with assistance; continue physical therapy; patient may be candidate for PT at home * If the EEG stable we'll consider discharge in a.m. Current Medications Sig/Garrick Start time Last Medication Dose Route Stop Time Status Admin Acetaminophen 650 MG .STK-MED ONE 05/17 2108 DC PO 05/17 210 Acetaminophen 1,000 MG Q6P PRN 05/14 2230 AC IV Aspirin 81 MG DAILY 05/15 1000 AC 05/18 PO 0907 Atorvastatin Calcium 10 MG DAILY 05/15 1000 AC 05/18 PO 0906 Calcium Carbonate 500 MG DAILY 05/15 1000 AC 05/18 PO 0906 Cholecalciferol 1,000 IU DAILY 05/15 1000 AC 05/18 PO 0906 Clotrimazole 1 SULEMAN BID 05/15 1000 AC 05/15 TOP 2223 Cyanocobalamin 1,000 MCG DAILY 05/15 1000 AC 05/18 PO 0906 Docusate Sodium 100 MG DAILY NEEDED PRN 05/14 2300 AC 05/17 PO 1229 Enoxaparin Sodium 40 MG DAILY 05/15 1000 AC 05/18 SC 0906 Fluticasone 2 SPRAY DAILY 05/15 1000 AC 05/18 Propionate MUMTAZ 0905 Guaifenesin 600 MG Q12 05/16 1000 AC 05/18 PO 0906 Insulin Aspart 0 TIDAC 05/15 1200 AC 05/17 SC 1229 Insulin Detemir 14 UNITS QPM 05/15 2199 AC 05/17 SC 2109 Lacosamide 50 MG BID 05/18 1000 AC 05/18 PO 0906 Levetiracetam 1,500 MG BID 05/16 2199 AC 05/18 PO 0906 Levothyroxine Sodium 0.025 MG DAILY AC 05/15 0700 AC 05/18 PO 0720 Losartan Potassium 100 MG DAILY 05/15 1000 AC 05/18 PO 0907 Polyethylene Glycol 17 GM DAILY PRN 05/14 2315 AC PO Laboratory Tests 05/18/17 0702: Anion Gap 11, Estimated GFR > 60, BUN/Creatinine Ratio 30.0 H 05/17/17 0625: CBC w Diff NO MAN DIFF REQ, RBC 4.01 L, MCV 88.3, MCH 29.4, MCHC 33.2, RDW 13.3 , MPV 9.9, Gran % 54.4, Lymphocytes % 35.0, Monocytes % 8.8, Eosinophils % 1.3, Basophils % 0.5, Absolute Granulocytes 3.9, Absolute Lymphocytes 2.5, Absolute Monocytes 0.6, Absolute Eosinophils 0.1, Absolute Basophils 0 Vital Signs Date Time Temp Pulse Resp B/P B/P Pulse O2 O2 Flow FiO2 Mean Ox Delivery Rate 05/18 1141 98.2 80 18 148/80 05/18 1000 98.0 80 18 154/80 05/18 0907 98.3 62 20 130/70 05/18 0800 Room Air 05/18 0800 98.1 78 18 154/84 05/18 0703 98.3 62 20 130/70 96 Room Air 05/18 0000 95 Room Air 05/17 2252 97.8 70 16 130/72 97 Room Air 05/17 1600 92 16 130/70 05/17 1425 97.2 75 18 130/70 95 Room Air 05/17 1400 95 18 130/70 Intake & Output 05/18 1600 05/18 0800 05/18 0000 Intake Total 600 400 Output Total Balance 600 400 Intake, Oral 600 400 Patient 165 lb 154 lb Weight Weight Reported by Patient Bed scale Measurement Method MRI brain May 15 No evidence of acute cerebral ischemia or mesial temporal sclerosis. Scattered areas of cortical encephalomalacia and gliosis are again noted at both frontal and parietal convexities.
[2017-05-19 06:45] VITALS: BP 120/78
--- NOTE | 2017-05-19 07:46 | PN- Housestaff ---
Subjective Follow-up For: #Seizure activity, secondary to missed medication #Diabetes mellitus Tele-Events Since Last Visit: Off Subjective: No overnight event. Patient felt improved on her strength of RUE. otherwise no other specific complaint. Review of Systems Constitutional: Reports: see HPI. Objective Last 24 Hrs of Vital Signs/I&O Vital Signs Date Time Temp Pulse Resp B/P B/P Pulse O2 O2 Flow FiO2 Mean Ox Delivery Rate 05/19 0935 66 120/78 05/19 0800 95 Room Air 05/19 0645 98.8 66 20 120/78 96 Room Air 05/18 2146 97.7 73 18 114/60 95 Room Air 05/18 2135 Room Air 05/18 1600 98.4 78 18 146/78 05/18 1535 98.7 69 20 132/64 95 05/18 1141 98.2 80 18 148/80 Intake & Output 05/19 1600 05/19 0800 05/19 0000 Intake Total 120 480 Output Total Balance 120 480 Intake, Oral 120 480 Patient 70.647 kg Weight Weight Bed scale Measurement Method Physical Exam General Appearance: Alert, Oriented X3, Cooperative, No Acute Distress Cardiovascular: Regular Rate Lungs: Clear to Auscultation, Normal Air Movement Abdomen: Soft, No Tenderness Neurological: Normal Speech, mildly reduced strength 4/5 on RUE but showed improvement from yesterday. Extremities: No Edema, Normal Pulses Current Medications: Current Medications Sig/Garrick Start time Last Medication Dose Route Stop Time Status Admin Acetaminophen 1,000 MG Q6P PRN 05/14 2230 AC IV Aspirin 81 MG DAILY 05/15 1000 AC 05/19 PO 0934 Atorvastatin Calcium 10 MG DAILY 05/15 1000 AC 05/19 PO 0935 Calcium Carbonate 500 MG DAILY 05/15 1000 AC 05/19 PO 0935 Cholecalciferol 1,000 IU DAILY 05/15 1000 AC 05/19 PO 0935 Clotrimazole 1 SULEMAN BID 05/15 1000 DC 05/15 TOP 2223 Cyanocobalamin 1,000 MCG DAILY 05/15 1000 AC 05/19 PO 0935 Docusate Sodium 100 MG DAILY NEEDED PRN 05/14 2300 AC 05/17 PO 1229 Enoxaparin Sodium 40 MG DAILY 05/15 1000 AC 05/19 SC 0937 Fluticasone 2 SPRAY DAILY 05/15 1000 AC 05/19 Propionate MUMTAZ 0938 Guaifenesin 600 MG Q12 05/16 1000 AC 05/19 PO 0935 Insulin Aspart 0 TIDAC 05/15 1200 AC 05/17 SC 1229 Insulin Detemir 14 UNITS QPM 05/15 2200 AC 05/18 SC 2040 Lacosamide 50 MG BID 05/18 1000 AC 05/19 PO 0935 Levetiracetam 1,500 MG BID 05/16 2200 AC 05/19 PO 0935 Levothyroxine Sodium 0.025 MG DAILY AC 05/15 0700 AC 05/19 PO 0607 Losartan Potassium 100 MG DAILY 05/15 1000 AC 05/19 PO 0935 Polyethylene Glycol 17 GM DAILY PRN 05/14 2315 AC PO Assessment/Plan Assessment: Ms. Leslie is a 71-year-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 She has not had any seizures since her admission. EEG :abnormal due to runs of slowing and sharp waves in the left central region suggestive of an active seizure focus MRI :No evidence of acute cerebral ischemia or mesial temporal sclerosis.Scattered areas of cortical encephalomalacia and gliosis are again noted at both frontal and parietal convexities. -continue neuro checks -continue keppra 1500 bid + Vimpat 50 bid -follow neurology recommendations -Pending repeated EEG report before discharge. #Diabetes mellitus -continue levemir 14u qpm and novolog sliding scale #Chronic medical conditions -cont losartan, flonase, vit b12, vit d, lotrimin, os-hayley, atorvastatin, aspirin , levothyroxine #DVT ppx: SQ lovenox #Code status: Full code Problem List: 1. Status epilepticus Pain Ratin Pain Location: NA Pain Goal: Remain pain free Pain Plan: see AP Tomorrow's Labs & Rationales: NA
--- NOTE | 2017-05-19 11:58 | ELECTROENCEPHALOGRAM REPORT ---
Electroencephalogram Report Electroencephalogram Results Date of service: 05/18/17 Attending MD: Dimitri ALDRICH,Darrell Driver: Mikhail EEG Number: [id number] Test Utilizes: 10-20 system, 21 lead 18 channel digital recording Pertinent Hx/Physical/Neuro Findings/Clin Diagnosis: follow-up evaluation for ongoing seizures, intermittent sensory symtoms on the right Inpatient Medications: Current Medications Sig/Garrick Start time Last Medication Dose Route Stop Time Status Admin Acetaminophen 1,000 MG Q6P PRN 05/14 2230 AC IV Aspirin 81 MG DAILY 05/15 1000 AC 05/19 PO 0934 Atorvastatin Calcium 10 MG DAILY 05/15 1000 AC 05/19 PO 0935 Calcium Carbonate 500 MG DAILY 05/15 1000 AC 05/19 PO 0935 Cholecalciferol 1,000 IU DAILY 05/15 1000 AC 05/19 PO 0935 Clotrimazole 1 SULEMAN BID 05/15 1000 DC 05/15 TOP 2223 Cyanocobalamin 1,000 MCG DAILY 05/15 1000 AC 05/19 PO 0935 Docusate Sodium 100 MG DAILY NEEDED PRN 05/14 2300 AC 05/17 PO 1229 Enoxaparin Sodium 40 MG DAILY 05/15 1000 AC 05/19 SC 0937 Fluticasone 2 SPRAY DAILY 05/15 1000 AC 05/19 Propionate MUMTAZ 0938 Guaifenesin 600 MG Q12 05/16 1000 AC 05/19 PO 0935 Insulin Aspart 0 TIDAC 05/15 1200 AC 05/17 SC 1229 Insulin Detemir 14 UNITS QPM 05/15 2200 AC 05/18 SC 2040 Lacosamide 50 MG BID 05/18 1000 AC 05/19 PO 0935 Levetiracetam 1,500 MG BID 05/16 2200 AC 05/19 PO 0935 Levothyroxine Sodium 0.025 MG DAILY AC 05/15 0700 AC 05/19 PO 0607 Losartan Potassium 100 MG DAILY 05/15 1000 AC 05/19 PO 0935 Polyethylene Glycol 17 GM DAILY PRN 05/14 2315 AC PO Interpretation: The background on the right is composed of mildly irregular 10 hertz alpha activity and frontally dominant beta. On the left the background is slow mainly in the theta range with some irregular faster activity. There is sharply contoured theta at the C3 with phase reversing sharp waves and spikes throughout the recording. Hyperventilation was deferred, photic adds no information. Impression: Abnormal due to ongoing slowing, sharp waves and spikes at the left central region throughout the record but no actual seizures recorded.
--- NOTE | 2017-05-19 12:16 | PN- Att Addend ---
Attending Addendum Attending Brief Note Patient seen and examined. Plan of care discussed with the medical team and the patient. Available lab work and radiology test reports were reviewed. Patient reports no further seizure activity. She is currently awake alert and sitting in bed. She denies any fever chills nausea vomiting chest pain difficulty breathing or abdominal pain. She was noted to be ambulating in hallway without any difficulty. Exam: General: Patient awake alert oriented without any distress CVS: S1 plus S2 without any murmur or gallops Chest: Few scattered crepitation without any wheeze. There is no respiratory distress. Abdomen: Soft non-tender, bowel sound present, no guarding or rebound FUNERAL ATTENDANT: Awake alert oriented with 4 over 5 right upper extremity weakness which is chronic. follows commands appropriately Extremities: No edema; no clubbing or cyanosis noted Assessment * Recurrent seizure due to missing Keppra dose * History of diabetes * History of hypertension * History of strep pneumonia meningitis in remote past Plan * Continue Keppra and Vimpat * Given the findings on repeat EEG we will wait for further neurology input whether her medication dosages will be adjusted * If clear by neurology she can be discharged home today Current Medications Sig/Garrick Start time Last Medication Dose Route Stop Time Status Admin Acetaminophen 1,000 MG Q6P PRN 05/14 2230 AC IV Aspirin 81 MG DAILY 05/15 1000 AC 05/19 PO 0934 Atorvastatin Calcium 10 MG DAILY 05/15 1000 AC 05/19 PO 0935 Calcium Carbonate 500 MG DAILY 05/15 1000 AC 05/19 PO 0935 Cholecalciferol 1,000 IU DAILY 05/15 1000 AC 05/19 PO 0935 Clotrimazole 1 SULEMAN BID 05/15 1000 DC 05/15 TOP 2223 Cyanocobalamin 1,000 MCG DAILY 05/15 1000 AC 05/19 PO 0935 Docusate Sodium 100 MG DAILY NEEDED PRN 05/14 2300 AC 05/17 PO 1229 Enoxaparin Sodium 40 MG DAILY 05/15 1000 AC 05/19 SC 0937 Fluticasone 2 SPRAY DAILY 05/15 1000 AC 05/19 Propionate MUMTAZ 0938 Guaifenesin 600 MG Q12 05/16 1000 AC 05/19 PO 0935 Insulin Aspart 0 TIDAC 05/15 1200 AC 05/17 SC 1229 Insulin Detemir 14 UNITS QPM 05/15 2200 AC 05/18 SC 2040 Lacosamide 50 MG BID 05/18 1000 AC 05/19 PO 0935 Levetiracetam 1,500 MG BID 05/16 2200 AC 05/19 PO 0935 Levothyroxine Sodium 0.025 MG DAILY AC 05/15 0700 AC 05/19 PO 0607 Losartan Potassium 100 MG DAILY 05/15 1000 AC 05/19 PO 0935 Polyethylene Glycol 17 GM DAILY PRN 05/14 2315 AC PO Laboratory Tests 05/18/17 0702: Anion Gap 11, Estimated GFR > 60, BUN/Creatinine Ratio 30.0 H 05/17/17 0625: CBC w Diff NO MAN DIFF REQ, RBC 4.01 L, MCV 88.3, MCH 29.4, MCHC 33.2, RDW 13.3 , MPV 9.9, Gran % 54.4, Lymphocytes % 35.0, Monocytes % 8.8, Eosinophils % 1.3, Basophils % 0.5, Absolute Granulocytes 3.9, Absolute Lymphocytes 2.5, Absolute Monocytes 0.6, Absolute Eosinophils 0.1, Absolute Basophils 0 Vital Signs Date Time Temp Pulse Resp B/P B/P Pulse O2 O2 Flow FiO2 Mean Ox Delivery Rate 05/19 0935 66 120/78 05/19 0800 95 Room Air 05/19 0645 98.8 66 20 120/78 96 Room Air 05/18 2146 97.7 73 18 114/60 95 Room Air 05/18 2135 Room Air 05/18 1600 98.4 78 18 146/78 05/18 1535 98.7 69 20 132/64 95 Intake & Output 05/19 1600 05/19 0800 05/19 0000 Intake Total 120 480 Output Total Balance 120 480 Intake, Oral 120 480 Patient 156 lb Weight Weight Bed scale Measurement Method EEG May 18 Abnormal due to ongoing slowing, sharp waves and spikes at the left central region throughout the record but no actual seizures recorded. Total time spent in preparation for discharge plan, patient education, and CMR preparation was 35 minutes.
[2017-05-19] MEDS ORDERED: KEPPRA750 M1 PO ×2 (13:23→14:18)
[2017-05-19] MEDS ORDERED: VIMPAT50 M1 PO ×3 (13:23→14:18)
--- NOTE | 2017-05-19 13:26 | Patient Discharge Instructions ---
Discharge Instructions General Discharge Information You were seen/treated for: Seizures Watch for these problems: - seizures - weakness in upper or lower extremities - chest pain, shortness of breath, palpitations Special Instructions: -Please see your primary care provider within a week of discharge -Please follow up with your neurologis within a week of discharge. -Please take your medications as prescribed. Please note that the doses of your anti-seizure meds are changed. Please discuss with your neurologist for further recommendations. Acute Coronary Syndrome Inclusion Criteria At DC or during hospital stay patient has or had the following: ACS DIAGNOSIS No Discharge Core Measures Meds if any: Prescribed or Continued at Discharge Meds if any: NOT Prescribed or Continued at Discharge Congestive Heart Failure Inclusion Criteria At DC or during hospital stay patient has or had the following: CHF DIAGNOSIS No Discharge Core Measures Meds if any: Prescribed or Continued at Discharge Meds if any: NOT Prescribed or Continued at Discharge Cerebrovascular accident Inclusion Criteria At DC or during hospital stay patient has or had the following: CVA/TIA Diagnosis No Discharge Core Measures Meds if any: Prescribed or Continued at Discharge Meds if any: NOT Prescribed or Continued at Discharge Venous thromboembolism Inclusion Criteria VTE Diagnosis No VTE Type NONE VTE Confirmed by (Test) NONE Discharge Core Measures - Per Current guidelines, there needs to be overlap - treatment for the first 5 days of Warfarin therapy. - If discharged on Warfarin prior to 5 days of - overlap therapy, the patient will need to be - assessed for post discharge needs including - *Post discharge parental anticoagulation - *Warfarin and/or parental anticoagulation education - *Follow up date to check INR post discharge At least 5 days overlap therapy as Inpatient No Meds if any: Prescribed or Continued at Discharge Note: Overlap Therapy is Warfarin and Anticoagulant Meds if any: NOT Prescribed or Continued at Discharge
--- NOTE | 2017-05-19 13:28 | Discharge Summary ---
Visit Information Visit Dates Admission Date: 05/14/17 Discharge Date: 05/19/2017 Hospital Course Course Attending Physician: Dimitri ALDRICH,Darrell Primary Care Physician: Javier ALDRICH,Raimundo [place] Hospital Course: Ms. Leslie is a 71-year-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 Prior this admission, Patient reported waking in her normal state of health today when she was preparing for a family member to come visit today when she lost track of time and forgot to take her medications including her Keppra. She stated that she was sitting on the couch watching television when she suddenly developed this "weird feeling" and subsequently had a "seizure". Her and son were present during the episode and state that it lasted "a long time" and was still persisting of the time EMS arrived. Patient states that she was aware during the whole time and never lost consciousness and was in fact talking but had no control over her body. She did not hit her head, bite her tongue, or become incontinent of urine or stool. 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 Patient was first admitted to the ICU, start IV Keppra, and monitored overnight before transferring to telemetry. Patient had no seizure events since her admission throughout the hospital course. MRI had no evidence of acute cerebral ischemia, however scattered area of cortical encephalomalacia and gliosis noted in both frontal and parietal convexities. Patient was repeated on EEG twice, which both showed abnormal due to runs of slowing and sharp waves in the left central region, however no active seizure was recorded. Neurology consult recommended to increase the Keppra to 1500 mg twice daily, and started on Vimpat 50 mg twice daily. Patient was discharged on current antiepileptic regimen as mentioned, and she will follow-up with Dr. Santos within 2 weeks for further neurological evaluation. #Diabetes mellitus Patient was continued on levemir 14u qpm and novolog sliding scale #Chronic medical conditions Patient was continue all home medications including losartan, flonase, vit b12, vit d, lotrimin, os-hayley, atorvastatin, aspirin, levothyroxine #DVT ppx: SQ lovenox #Code status: Full code Allergies: Coded Allergies: Sulfa (Sulfonamide Antibiotics) (Intermediate, TURNS RED 03/17/16) Significant Procedures: Electroencephalogram Results Date of service: 05/15/17 Interpretation: The waking background over both hemispheres is 10-12 hertz low amplitude posterior alpha and frontally dominant beta. There are runs of slowing with sharp waves but no phase reversals at the C3 electrode position repeatedly during the study. In drowsiness more generalized slowing in the theta range appears. Hyperventilation was deferred, photic stimulation adds no further information. Impression: abnormal due to runs of slowing and sharp waves in the left central region suggestive of an active seizure focus Electroencephalogram Results Date of service: 05/18/17 Interpretation: The background on the right is composed of mildly irregular 10 hertz alpha activity and frontally dominant beta. On the left the background is slow mainly in the theta range with some irregular faster activity. There is sharply contoured theta at the C3 with phase reversing sharp waves and spikes throughout the recording. Hyperventilation was deferred, photic adds no information. Impression: Abnormal due to ongoing slowing, sharp waves and spikes at the left central region throughout the record but no actual seizures recorded. Pertinent Lab Results: SERVICE DATE: 05/14/17-155 EXAM TYPE: CAT - CT HEAD WO IV CONTRAST IMPRESSION: No acute intracranial abnormality identified. SERVICE DATE: 05/14/17-1926 EXAM TYPE: RAD - XRY-PORTABLE CHEST XRAY IMPRESSION: Negative acute portable chest SERVICE DATE: 05/15/17-131 EXAM TYPE: MRI - MRI-HEAD W/O YAKOV IMPRESSION: No evidence of acute cerebral ischemia or mesial temporal sclerosis. Scattered areas of cortical encephalomalacia and gliosis are again noted at both frontal and parietal convexities. Disposition Summary Disposition Principal Diagnosis: #Recurrent seizure due to missing Keppra dose #History of diabetes #History of hypertension #History of strep pneumonia meningitis in remote past Additional Diagnosis: as above Discharge Disposition: home health services Discharge Instructions General Discharge Information Code Status: Full Code Patient's Diet: Heart Healthy Patient's Activity: As tolerated Follow-Up Instructions/Appts: You were seen/treated for: Seizures Watch for these problems: - seizures - weakness in upper or lower extremities - chest pain, shortness of breath, palpitations Special Instructions: -Please see your primary care provider within a week of discharge -Please follow up with your neurologis within a week of discharge. -Please take your medications as prescribed. Please note that the doses of your anti-seizure meds are changed. Please discuss with your neurologist for further recommendations. Medications at Discharge Discharge Medications: Stop taking the following medications: Levetiracetam (Keppra) 750 MG TABLET ORAL TWICE DAILY Qty = 120 Continue taking these medications: Levothyroxine Sodium (Levothyroxine Sodium) 25 MCG TABLET 1 Tablet ORAL DAILY BEFORE BREAKFAST Qty = 90 Comments: Last Taken: 05/19/17 Time: 6 AM Atorvastatin Calcium (Atorvastatin Calcium) 10 MG TABLET 1 Tablet G TUBE DAILY Qty = 90 Comments: Last Taken: 05/19/17 Time: 9AM Polyethylene Glycol 3350 (Miralax) 17 GRAM/DOSE POWDER 17 Gram G TUBE DAILY as needed for CONSTIPATION Qty = 1 Comments: NOT GIVEN IN HOSPITAL Metformin HCl (Metformin HCl) 1,000 MG TABLET 0.5 Tablet ORAL TWICE DAILY Qty = 180 Comments: NOT GIVEN IN HOSPITAL Insulin Glargine,Hum.rec.anlog (Lantus Solostar) 100 UNIT/ML (3 ML) INSULN.PEN 14 Unit Inject into fatty tissue Every night Qty = 15 Comments: NOT GIVEN IN HOSPITAL. PT ON NOVOLOG SLIDING SCALE Losartan Potassium (Losartan Potassium) 100 MG TABLET 1 Tablet ORAL DAILY Qty = 90 Comments: Last Taken: 05/19/17 Time: 9AM Aspirin (Aspirin*) 81 MG TAB.CHEW 1 Tablet ORAL DAILY Comments: Last Taken: 05/19/17 Time: 9AM Clotrimazole (Clotrimazole) 1 % CREAM..G. 1 Application On the skin TWICE DAILY Comments: NOT GIVEN IN HOSPITAL Fluticasone Propionate (Fluticasone Propionate) 50 MCG/ACTUATION SPRAY.SUSP 2 [place] Both sides of nose DAILY Qty = 16 Comments: Last Taken: 05/19/17 Time: 9AM Cyanocobalamin (Vitamin B-12) 1,000 MCG TABLET 1 Tablet ORAL DAILY Comments: Last Taken: 05/19/17 Time: 9AM Cholecalciferol (Vitamin D3) 1,000 UNIT TABLET 1 Tablet ORAL DAILY Comments: Last Taken: 05/19/17 Time: 9AM Docusate Sodium (Stool Softener) 100 MG CAPSULE 1 Capsule ORAL DAILY NEEDED as needed for CONSTIPATION Comments: Last Taken: 05/17/17 Time: 12PM Calcium Carbonate/Vitamin D3 (Calcium 500-Vit D3 600 [place]) 500 MG-600 TABLET 1 Tablet ORAL DAILY Comments: Last Taken: 05/19/17 Time: 9AM Start taking the following new medications: Lacosamide (Vimpat) 50 MG TABLET 50 Milligram ORAL TWICE DAILY Qty = 60 Refills = 1 Instructions: . Comments: Last Taken: 05/19/17 Time: 9AM Levetiracetam (Keppra) 750 MG TABLET 2 Tablet ORAL TWICE DAILY Qty = 60 Refills = 1 Instructions: . Comments: Last Taken: 05/19/17 Time: 9AM Copies To: Javier ALDRICH,Raimundo [place]
[2017-05-19 14:06] VITALS: BP 118/70
--- NOTE | 2017-05-19 14:16 | PN- Neurology ---
Subjective Subjective: NO FURTHER SEIZRE OCCASIONAL [place] SENSE RIGHT ARM NOT SLEEPY ON VIMPAT Review of Systems: NO HEADACHE OR DIZZYNESS Objective Vital Signs and I&Os Vital Signs Date Time Temp Pulse Resp B/P B/P Pulse O2 O2 Flow FiO2 Mean Ox Delivery Rate 05/19 1406 98.6 100 18 118/70 95 Room Air 05/19 0935 66 120/78 05/19 0800 95 Room Air 05/19 0645 98.8 66 20 120/78 96 Room Air 05/18 2146 97.7 73 18 114/60 95 Room Air 05/18 2135 Room Air 05/18 1600 98.4 78 18 146/78 05/18 1535 98.7 69 20 132/64 95 Intake & Output 05/19 1600 05/19 0800 05/19 0000 05/18 1600 05/18 0800 05/18 0000 Intake Total 120 480 680 600 400 Output Total Balance 120 480 680 600 400 Intake, Oral 120 480 680 600 400 Patient 156 lb 165 lb 154 lb Weight Weight Bed scale Reported by Patient Bed scale Measurement Method Physical Exam: ALERT NO DYSARTHRIA EOM FULL STRENGHT NORMAL COORD NORMAL Physical Exam General Appearance: well developed/nourished Current Medications: Current Medications Sig/Garrick Start time Last Medication Dose Route Stop Time Status Admin Acetaminophen 1,000 MG Q6P PRN 05/14 223 AC IV Aspirin 81 MG DAILY 05/15 1000 AC 05/19 PO 0934 Atorvastatin Calcium 10 MG DAILY 05/15 1000 AC 05/19 PO 0935 Calcium Carbonate 500 MG DAILY 05/15 1000 AC 05/19 PO 0935 Cholecalciferol 1,000 IU DAILY 05/15 1000 AC 05/19 PO 0935 Clotrimazole 1 SULEMAN BID 05/15 1000 OR 05/15 TOP 2223 Cyanocobalamin 1,000 MCG DAILY 05/15 1000 AC 05/19 PO 0935 Docusate Sodium 100 MG DAILY NEEDED PRN 05/14 2300 AC 05/17 PO 1229 Enoxaparin Sodium 40 MG DAILY 05/15 1000 AC 05/19 SC 0937 Fluticasone 2 SPRAY DAILY 05/15 1000 AC 05/19 Propionate MUMTAZ 0938 Guaifenesin 600 MG Q12 05/16 1000 AC 05/19 PO 0935 Insulin Aspart 0 TIDAC 05/15 1200 AC 05/19 SC 1311 Insulin Detemir 14 UNITS QPM 05/15 2200 AC 05/18 SC 2040 Lacosamide 50 MG BID 05/18 1000 AC 05/19 PO 0935 Levetiracetam 1,500 MG BID 05/16 2200 AC 05/19 PO 0935 Levothyroxine Sodium 0.025 MG DAILY AC 05/15 0700 AC 05/19 PO 0607 Losartan Potassium 100 MG DAILY 05/15 1000 AC 05/19 PO 0935 Polyethylene Glycol 17 GM DAILY PRN 05/14 2315 AC PO Assessment/Plan Assessment: FOCAL SEIZURE MRI BRAIN: IMPRESSION: No evidence of acute cerebral ischemia or mesial temporal sclerosis. Scattered areas of cortical encephalomalacia and gliosis are again noted at both frontal and parietal convexities. EEG: Impression: Abnormal due to ongoing slowing, sharp waves and spikes at the left central region throughout the record but no actual seizures recorded. Plan: DOING WELL ON COMBINATION OF LEVETIRACETAM AND VIMPAT F/U DR BRIGHT 2 WEEKS IN OFFICE
== END 2017-05-19 17:42 | disposition home health service (06) | DRG 101 ==
LOC: ERH 15:18 → ERHI 20:12 → 1NO 20:12 → EDBEDREQ 05-15 09:44 → ENRESERV 05-15 10:38 → ENTRNSPT 05-15 12:50 → EDTRNSPT 05-15 13:06 → EDTRNSPTSTS 05-15 13:06 → 1NO 05-15 13:15 → 2NB 05-15 13:16 → CMPTRNSPT 05-15 13:32 → 2NB 05-15 15:31 → 1NO 05-15 16:58 → ENTRNSPT 05-19 17:29 → EDTRNSPT 05-19 17:31 → 1NO 05-19 17:42 → EDTRNSPTSTS 05-19 17:43 → EDTRNSPT 05-19 17:43 → CMPTRNSPT 05-19 17:55
PROVIDERS: Emergency Medicine; Internal Medicine Interventional Cardiology; Student in an Organized Health Care Education/Training Program
DX: G40.509 Epileptic seizures related to external causes, not intractable, without status epilepticus (principal); J38.01 Paralysis of vocal cords and larynx, unilateral; G93.89 Other specified disorders of brain; Z86.74 Personal history of sudden cardiac arrest; E11.9 Type 2 diabetes mellitus without complications; B94.8 Sequelae of other specified infectious and parasitic diseases; T42.6X6A Underdosing of other antiepileptic and sedative-hypnotic drugs, initial encounter; E03.9 Hypothyroidism, unspecified; E66.9 Obesity, unspecified; Z68.27 Body mass index [BMI] 27.0-27.9, adult; E78.5 Hyperlipidemia, unspecified; I10 Essential (primary) hypertension; R05 Cough; Y92.009 Unspecified place in unspecified non-institutional (private) residence as the place of occurrence of the external cause; Z79.84 Long term (current) use of oral hypoglycemic drugs; Z88.2 Allergy status to sulfonamides; Z79.4 Long term (current) use of insulin; Z90.710 Acquired absence of both cervix and uterus
CPT/HCPCS: 1NSP; 70551; ERO; 36592; 71045; 80307; 81001; 82436; 93005; 93010; 95816; 96374; 96375; 96376; 97116-GO; 97161-GP; 97165-GO; 99291; J0131; J1650; J1953; J3490; J7042